=== PATIENT | female | born 1950 | race Caucasian/White ===

== ENCOUNTER 2016-07-04 11:22 | Day surgery (SDC) | payer OTHER, MEDICARE ==
[2016-07-01 14:03] VITALS: BMI 18.5
[2016-07-04] MEDS ORDERED: PROPOFOL 20 ML ONE (12:27)
[2016-07-04 13:06] VITALS: TEMP 98.2
[2016-07-04 13:54] VITALS: BP 131/80; PULSE 94
== END 2016-07-04 13:54 | disposition home or self-care (01) ==
LOC: JASU-ENDO 11:22
PROVIDERS: ATTEND Internal Medicine Gastroenterology
PROC: 0DJD8ZZ Inspection of Lower Intestinal Tract, Via Natural or Artificial Opening Endoscopic (ICD-10-PCS; principal; 2016-07-04 12:30)
DX: R10.32 Left lower quadrant pain (principal); K64.8 Other hemorrhoids

== ENCOUNTER 2016-07-25 13:09 | Inpatient (IN) | payer OTHER, MEDICARE ==
[2016-07-25 13:27] VITALS: BMI 19.2
[2016-07-25] MEDS ORDERED: SODIUM CHLORIDE 1,000 ML IV STA (13:51)
[2016-07-25] MEDS ORDERED: KETOROLAC TROMETHAMINE 30 MG/1 ML VIAL IVPUSH ONE ×3 (13:51→20:03)
--- NOTE | 2016-07-25 13:58 | PDOC ---
History of Present Illness - General History Source: Patient Exam Limitations: No Limitations - History of Present Illness Initial Comments: 07/25/16 14:09 Patient is a 66 year old with pmhx of anxiety, hemorrhoids, diverticulosis, cardiomegaly, splenomegaly, hepatomegaly, Kidney cysts, COPD, myeloproliferative disorder, IBS, who presents to the emergency department with LLQ pain since 05/2016. Patient was seen by Dr. Arguelles and had a CT in . Patient had a colonoscopy on Saturday 07/22 and was found to have diverticulosis. Patient reports increased abdominal pain at the LLQ since her colonoscopy. She also reports constipation. Her last bowel movement was on Monday. She denies fever, chills, nausea, vomiting, or diarrhea. <Renuka Martinez - Last Filed: 07/25/16 15:46> <Tyrell Wooten - Last Filed: 07/25/16 16:03> - General Chief Complaint: Pain, Acute Stated Complaint: ABDOMINAL PAIN Time Seen by Provider: 07/25/16 13:39 Past History <Renuka Martinez - Last Filed: 07/25/16 15:46> - Past Medical History Anemia: No Asthma: No Cancer: Yes (BENIGN ADRENAL MASS) Cardiac Disorders: No CVA: No COPD: Yes CHF: No Dementia: No Diabetes: No GI Disorders: Yes (ibs,diverticulosis) Disorders: Yes (kidney cysts) HTN: No Hypercholesterolemia: No Kidney Stones: Yes Liver Disease: No Psychiatric Problems: Yes (ANXIETY) Suicide Attempt (Hx): No Seizures: No Thyroid Disease: No - Surgical History Abdominal Surgery: Yes Appendectomy: No Cardiac Surgery: No Cholecystectomy: No Lung Surgery: No Neurologic Surgery: No Orthopedic Surgery: No - Immunization History Immunization Up to Date: Yes - Psycho/Social/Smoking Cessation Hx Anxiety: Yes Suicidal Ideation: No Smoking Status: Yes Smoking History: Former smoker Have you smoked in the past 12 months: No Number of Cigarettes Smoked Daily: 1 If you are a former smoker, when did you quit?: 2005 Information on smoking cessation initiated: No 'Breaking Loose' booklet given: 02/20/13 Hx Alcohol Use: No Drug/Substance Use Hx: No Substance Use Type: None Hx Substance Use Treatment: No <Tyrell Wooten - Last Filed: 07/25/16 16:03> - Past Medical History Allergies/Adverse Reactions: Allergies Allergy/AdvReac Type Severity Reaction Status Date / Time Sulfa (Sulfonamide Allergy Verified 07/25/16 13:20 Antibiotics) Home Medications: Ambulatory Orders Albuterol Sulfate [Proair Hfa -] 1 - 2 inh PO PRN PRN 01/28/14 Trazodone HCl [Desyrel -] 100 mg PO HS 01/28/14 Aspirin [ASA -] 81 mg PO DAILY 10/30/15 Hydroxyurea [Hydrea] 500 mg PO ASDIR #30 11/03/15 Budesonide/Formeterol Fumarate [SYMBICORT 160/4.5mcg -] 1 inh PO DAILY 07/01/16 Tiotropium [place] [Spiriva] 1 inh PO DAILY 07/01/16 Alprazolam [Xanax] 0.25 mg PO Q8H PRN 07/21/16 Anagrelide HCl [Agrylin] 1 mg PO TID 07/21/16 Dicyclomine HCl [Bentyl -] 10 mg PO Q6H PRN 07/25/16 Polyethylene Glycol 3350 [Miralax (For Daily Use) -] 17 gm PO HS 07/25/16 Abd/GI Specific PMHX - Complaint Specific PMHX Diverticulitis: Yes <Tyrell Wooten - Last Filed: 07/25/16 16:03> Review of Systems - Review of Systems Able to Perform ROS?: Yes Comments:: 07/25/16 14:09 General: Absent: fever, chills GI: +LLQ pain, +constipation Absent: nausea, vomiting, diarrhea <Renuka Martinez - Last Filed: 07/25/16 15:46> *Physical Exam - Vital Signs Last Vital Signs Temp Pulse Resp BP Pulse Ox 99.1 F 102 H 22 152/88 94 L 07/25/16 13:20 07/25/16 13:20 07/25/16 13:20 07/25/16 13:20 07/25/16 13:20 <Renuka Martinez - Last Filed: 07/25/16 15:46> - Vital Signs Last Vital Signs Temp Pulse Resp BP Pulse Ox 99.1 F 102 H 22 152/88 94 L 07/25/16 13:20 07/25/16 13:20 07/25/16 13:20 07/25/16 13:20 07/25/16 13:20 - Physical Exam General Appearance: Yes: Nourished, Appropriately Dressed. No: Apparent Distress Respiratory/Chest: positive: Lungs Clear, Normal Breath Sounds. negative: Chest Tender, Respiratory Distress Cardiovascular: positive: Regular Rhythm, Regular Rate Gastrointestinal/Abdominal: positive: Normal Bowel Sounds, Tender (LLQ BUT NO G/ R) Musculoskeletal: negative: CVA Tenderness Integumentary: positive: Normal Color. negative: Rash Neurologic: positive: Fully Oriented, Alert, Normal Mood/Affect, Normal Response , Motor Strength 5/5 <Tyrell Wooten - Last Filed: 07/25/16 16:03> ED Treatment Course - LABORATORY CBC & Chemistry Diagram: 07/25/16 14:05 07/25/16 14:05 <Renuka Martinez - Last Filed: 07/25/16 15:46> - LABORATORY CBC & Chemistry Diagram: 07/25/16 14:05 07/25/16 14:05 - RADIOLOGY Radiology Studies Ordered: Category Date Time Status ABDOMEN [id number] [RAD] Stat Radiology 07/25/16 13:51 Ordered <Tyrell Wooten - Last Filed: 07/25/16 16:03> Progress Note - Progress Note Progress Note: CHRONIC LLQ PAIN SINCE APRIL 2016 CT SHOWED DIVERTICULOSIS BUT NOT ITIS. WORSENING PAIN CONTIPATION ON DIFDX NSAID'S <Tyrell Wooten - Last Filed: 07/25/16 16:03> Medical Decision Making - Medical Decision Making 07/25/16 15:[address] Goetz. A call was placed to Dr. Ortiz. 07/25/16 15:[address] Ortiz. <Renuka Martinez - Last Filed: 07/25/16 15:46> *DC/Admit/Observation/Transfer - Attestations Scribe Attestion: 07/25/16 14:10 Documentation prepared by TANI Harper, acting as medical receptionist medical assistant for Tyrell Wooten MD/. <Renuka Martinez - Last Filed: 07/25/16 15:46> - Discharge Dispostion Admit: Yes <Tyrell Wooten - Last Filed: 07/25/16 16:03> Diagnosis at time of Disposition: Abdominal pain Qualifiers: Abdominal location: lower abdomen, unspecified Qualified Code(s): R10.30 - Lower abdominal pain, unspecified - Discharge Dispostion Condition at time of disposition: Stable - Referrals Referrals: Piero Ortiz MD [Primary Care Provider] -
[2016-07-25] MEDS ORDERED: KETOROLAC TROMETHAMINE 30 MG/1 ML VIAL ONE (13:59)
[2016-07-25 14:38] LABS: BASOPHIL 0.8 % (0-2.0); EOSINOPHIL 2.8 % (0-4.5); MCH 30.3 pg (25.7-33.7); MCHC 31.9 g/dl (32.0-36.0); MEAN PLT VOLUME 9.6 fl (7.5-11.1); NEUTROPHILS 84.9 % (42.8-82.8); PLATELET COUNT 229 K/MM3 (134-434); WHITE BLOOD COUNT 16.4 K/mm3 (4.0-10.0)
[2016-07-25 15:04] LABS: CALCIUM 8.7 mg/dL (8.5-10.1); CREATININE 1.6 mg/dL (0.55-1.02)
[2016-07-25] MEDS ORDERED: ALBUTEROL SO4 6.7 GM HFA INHALER IH PRN ×2 (17:07→17:26)
[2016-07-25] MEDS ORDERED: DICYCLOMINE HCL 10 MG CAPSULE PO PRN (17:07)
[2016-07-25] MEDS ORDERED: ONDANSETRON 4 MG/2 ML VIAL IVPB PRN (17:09)
[2016-07-25] MEDS ORDERED: morphine CARPU-JECT 2 MG/1 ML DISP.SYRIN IVPUSH PRN (17:09)
[2016-07-25] MEDS ORDERED: ACETAMINOPHEN 325 MG TABLET (FP) PO PRN (17:09)
--- NOTE | 2016-07-25 17:13 | HP ---
CHIEF COMPLAINT: Abdominal pain PCP: Dr. Ortiz HISTORY OF PRESENT ILLNESS: This is a 66 year old female with a history of MDS/ essential thrombocythemia on Hydrea and Anegrlide, CKD, COPD, anxiety, diverticulosis with adhesions, and chronic abdominal pain. She has been having abdominal pain intermittently since May. She is complaining of constipation (last BM Monday) but denies nausea/vomiting, fevers/chills, rectal bleeding, or any other symptoms. On July 22, she had a colonoscopy with Dr. Goetz, but he was unable to complete the exam and recommends a repeat CT and likely surgery for suspected sigmoid stricture. 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 Smoking: Former smoker, quit 6 yrs ago Alcohol: None Family History: Mother with CHF, Allergies Sulfa (Sulfonamide Antibiotics) Allergy (Verified 07/25/16 13:20) HOME MEDICATIONS: Home Medications Medication Instructions Recorded Albuterol Sulfate [Proair Hfa -] 1 - 2 inh PO PRN PRN 01/28/14 Trazodone HCl [Desyrel -] 100 mg PO HS 01/28/14 Aspirin [ASA -] 81 mg PO DAILY 10/30/15 Hydroxyurea [Hydrea] 500 mg PO ASDIR #30 11/03/15 Budesonide/Formeterol Fumarate 1 inh PO DAILY 07/01/16 [SYMBICORT 160/4.5mcg -] Tiotropium [place] [Spiriva] 1 inh PO DAILY 07/01/16 Alprazolam [Xanax] 0.25 mg PO Q8H PRN 07/21/16 Anagrelide HCl [Agrylin] 1 mg PO TID 07/21/16 Dicyclomine HCl [Bentyl -] 10 mg PO Q6H PRN 07/25/16 Polyethylene Glycol 3350 [Miralax 17 gm PO HS 07/25/16 (For Daily Use) -] REVIEW OF SYSTEMS CONSTITUTIONAL: Absent: fever, chills, diaphoresis, generalized weakness, malaise, loss of appetite, weight change HEENT: Absent: rhinorrhea, nasal congestion, throat pain, throat swelling, difficulty swallowing, mouth swelling, ear pain, eye pain, visual changes CARDIOVASCULAR: Absent: chest pain, syncope, palpitations, irregular heart rate, lightheadedness , peripheral edema RESPIRATORY: Absent: cough, shortness of breath, dyspnea with exertion, orthopnea, wheezing, stridor, hemoptysis GASTROINTESTINAL: See HPI GENITOURINARY: Absent: dysuria, frequency, urgency, hesitancy, hematuria, flank pain, genital pain MUSCULOSKELETAL: Absent: myalgia, arthralgia, joint swelling, back pain, neck pain SKIN: Absent: rash, itching, pallor HEMATOLOGIC/IMMUNOLOGIC: Absent: easy bleeding, easy bruising, lymphadenopathy, frequent infections ENDOCRINE: Absent: unexplained weight gain, unexplained weight loss, heat intolerance, cold intolerance NEUROLOGIC: Absent: headache, focal weakness or paresthesias, dizziness, unsteady gait, seizure, mental status changes, bladder or bowel incontinence PSYCHIATRIC: Anxiety Absent: suicidal or homicidal ideation, hallucinations. PHYSICAL EXAMINATION Vital Signs - 24 hr 07/25/16 16:23 Pulse Rate [ 81 Apical] Respiratory 19 Rate Blood Pressure 159/90 [Left Arm] O2 Sat by Pulse 96 Oximetry (%) GENERAL: Awake, alert, and fully oriented, in no acute distress. EYES: Pupils equal, round and reactive to light, extraocular movements intact, sclera anicteric, conjunctiva clear. No lid lag. EARS, NOSE, THROAT: Ears normal, nares patent, oropharynx clear without exudates. Moist mucous membranes. NECK: Normal range of motion, supple without lymphadenopathy, JVD, or masses. LUNGS: Breath sounds equal, clear to auscultation bilaterally. No wheezes, and no crackles. No accessory muscle use. HEART: Regular rate and rhythm, normal S1 and S2 without murmur, rub or gallop. ABDOMEN: Soft, tender to deep palpation in LLQ, not distended, normoactive bowel sounds, no guarding, no rebound, no masses. No hepatomegaly or splenomegaly. MUSCULOSKELETAL: Normal range of motion at all joints. No bony deformities or tenderness. No CVA tenderness. UPPER EXTREMITIES: 2+ pulses, warm, well-perfused. No cyanosis. No clubbing. Cap refill <2 seconds. No peripheral edema. LOWER EXTREMITIES: 2+ pulses, warm, well-perfused. No calf tenderness. No peripheral edema. NEUROLOGICAL: Cranial nerves II-XII intact. Normal speech. Normal gait. PSYCHIATRIC: Irritable. SKIN: Warm, dry, normal turgor, no rashes or lesions noted. ASSESSMENT/PLAN: 66 year old female with intractable abdominal pain. Problem List - Problem (1) Abdominal pain Assessment/Plan: -Received Toradol in ED and is still complaining of pain; reluctant to take opiates -Ofirmev 1g IVPB now, Tylenol 650mg po q6h prn, morphine 2mg IVPB q6h if needed -Discussed with Dr. Goetz and requests CTAP with rectal contrast to rule out sigmoid stricture as well as surgical consultation -There are currently no rectal tubes in the hospital to administer rectal contrast -Patient is insisting on eating; will give regular diet today and place on clear liquids tomorrow Code(s): R10.9 - UNSPECIFIED ABDOMINAL PAIN Qualifiers: Abdominal location: lower abdomen, unspecified Qualified Code(s): R10.30 - Lower abdominal pain, unspecified (2) Anxiety Assessment/Plan: -Continue alprazolam, trazadone Code(s): F41.9 - ANXIETY DISORDER, UNSPECIFIED (3) COPD (chronic obstructive pulmonary disease) Assessment/Plan: -Continue Symbicort/Spiriva Code(s): J44.9 - CHRONIC OBSTRUCTIVE PULMONARY DISEASE, UNSPECIFIED Qualifiers : COPD type: COPD with acute exacerbation Qualified Code(s): J44.1 - Chronic obstructive pulmonary disease with (acute) exacerbation (4) Essential thrombocytosis Assessment/Plan: -Receives hydroxyurea -W- (took today) -Hold antiplatelets in anticipation of surgery Code(s): D47.3 - ESSENTIAL (HEMORRHAGIC) THROMBOCYTHEMIA (5) DVT prophylaxis Assessment/Plan: -Heparin sq 5000 tid -Early ambulation Code(s): [id number] - Visit type - Emergency Visit Emergency Visit: Yes ED Registration Date: 07/25/16 Care time: The patient presented to the Emergency Department on the above date and was hospitalized for further evaluation of their emergent condition. - New Patient This patient is new to me today: Yes Date on this admission: 07/25/16 - Critical Care Critical Care patient: No
[2016-07-25] MEDS ORDERED: HYDROXYUREA 500 MG CAPSULE PO SCH (17:15)
[2016-07-25] MEDS ORDERED: SODIUM CHLORIDE 1,000 ML IV SCH (17:15)
[2016-07-25] MEDS ORDERED: morphine CARPU-JECT 2 MG/1 ML DISP.SYRIN IVPUSH ONE (17:26)
[2016-07-25] MEDS ORDERED: ACETAMINOPHEN 1000 MG/100 ML VIAL (NON FORMULARY) IVPB ONE (17:37)
[2016-07-25] MEDS ORDERED: ACETAMINOPHEN INJECTION 100 ML IVPB ONE (17:46)
[2016-07-25] MEDS ORDERED: ALPRAZolam 0.25 MG TABLET ONE (18:27)
[2016-07-25] MEDS: ALPRAZolam 0.25 MG TABLET PO PRN (18:28)
[2016-07-25] MEDS ORDERED: morphine CARPU-JECT 2 MG/1 ML DISP.SYRIN ONE (19:43)
[2016-07-25] MEDS ORDERED: KETOROLAC TROMETHAMINE 15 MG/ML VIAL ONE (20:09)
[2016-07-25 20:46] LABS: SGOT/AST 14 U/L (15-37); SGPT/ALT 17 U/L (12-78)
[2016-07-25 20:48] LABS: ALK PHOS 86 U/L (45-117); BILIRUBIN,TOTAL 0.3 mg/dL (0.2-1.0)
[2016-07-25 20:52] LABS: BILIRUBIN,DIRECT < 0.1 mg/dL (0.0-0.2)
[2016-07-25] MEDS: HEPARIN NA (PORCINE) 5,000 UNITS/ML 1ML VIAL SQ SCH (23:16)
[2016-07-25] MEDS: POLYETHYLENE GLYCOL 3350 119 GM BTL PO SCH (23:16)
[2016-07-25] MEDS: traZODone HCL 50 MG TABLET (FP) PO SCH (23:16)
[2016-07-25] MEDS: BUDESONIDE/FORMETEROL FUMARATE 160/4.5 mcg INHALER IH SCH (23:17)
[2016-07-25] MEDS: ACLIDINIUM BROMIDE 400 MCG/INH AERO.POWD IH SCH (23:17)
[2016-07-26] MEDS: ALPRAZolam 0.25 MG TABLET PO PRN ×2 (06:01→18:43)
[2016-07-26] MEDS: HEPARIN NA (PORCINE) 5,000 UNITS/ML 1ML VIAL SQ SCH (06:01)
[2016-07-26] MEDS ORDERED: KETOROLAC TROMETHAMINE 30 MG/1 ML VIAL IVPUSH ONE (06:09)
[2016-07-26] MEDS ORDERED: KETOROLAC TROMETHAMINE 30 MG/1 ML VIAL IVPB ONE (06:26)
[2016-07-26 07:49] LABS: BASOPHIL 0.8 % (0-2.0); EOSINOPHIL 3.1 % (0-4.5); MCH 30.4 pg (25.7-33.7); MCHC 32.7 g/dl (32.0-36.0); MEAN PLT VOLUME 9.4 fl (7.5-11.1); NEUTROPHILS 83.8 % (42.8-82.8); PLATELET COUNT 180 K/MM3 (134-434); RDW 18.9 % (11.6-15.6); WHITE BLOOD COUNT 9.8 K/mm3 (4.0-10.0)
[2016-07-26 08:16] LABS: INR 1.11 (0.82-1.09); PROTHROMBIN TIME (PATIENT) 12.2 SEC (9.98-11.88)
[2016-07-26 09:19] LABS: ALBUMIN 3.5 g/dl (3.4-5.0); BILIRUBIN,TOTAL 0.3 mg/dL (0.2-1.0); CREATININE 1.6 mg/dL (0.55-1.02); MAGNESIUM 2.1 mg/dL (1.8-2.4)
[2016-07-26] MEDS ORDERED: PT OWN MED DRAWER 7, Y5N ONE ×2 (09:38→10:33)
[2016-07-26] MEDS ORDERED: BUDESONIDE/FORMETEROL FUMARATE 160/4.5 mcg INHALER IH SCH (10:00)
--- NOTE | 2016-07-26 10:52 | PN ---
Physical Exam: SUBJECTIVE: Patient seen and examined field court researcher: Dr. Powers PCP/warehouse team member: Dr. Mahoney Video Software Engineer:Dr. Medrano Psych: Dr. Yuen GI: Dr. Lim abdominal pain is better than when she arrived. does not want morphine due to constipation which will make her abdominal pain worse, toradol and bentyl cover the pain. Interested in speaking with Dr. Joyner regarding surgical intervention for possible sigmoid stricture. abdominal pain has been getting worse since april. has been passing gas, last BM was Monday morning. OBJECTIVE: Vital Signs Period Temp Pulse Resp BP Sys/Palacios Pulse Ox Last 24 Hr 97.3 F-98.3 F 80-87 18-20 153-170/77-97 95-98 GENERAL: The patient is awake, alert, and fully oriented, in no acute distress. HEAD: Normal with no signs of trauma. EYES: PERRL, extraocular movements intact, sclera anicteric, conjunctiva clear. No ptosis. ENT: oropharynx clear without exudates, moist mucous membranes. LUNGS: scattered expiratory wheezing, no accessory muscle use. comfortable on RA. HEART: Regular rate and rhythm, S1, S2 without murmur, rub or gallop. ABDOMEN: Soft, ttp in LLQ, distended, normoactive bowel sounds, no guarding, no rebound EXTREMITIES: 2+ pulses, warm, well-perfused, no edema. PSYCH: Normal mood, normal affect. SKIN: Warm, dry, normal turgor, no rashes or lesions noted Laboratory Results - last 24 hr 07/26/16 07/26/16 07/26/16 06:00 06:00 06:00 WBC 9.8 D RBC 3.02 L Hgb 9.2 L Hct 28.1 L MCV 93.0 MCHC 32.7 RDW 18.9 H Plt Count 180 D MPV 9.4 Neutrophils % 83.8 H Lymphocytes % 10.3 Monocytes % 2.0 L Eosinophils % 3.1 Basophils % 0.8 INR 1.11 Sodium 140 Potassium 4.9 Chloride 108 H Carbon Dioxide 26 Anion Gap 6 L BUN 26 H Creatinine 1.6 H Creat Clearance w eGFR 32.25 Random Glucose 75 Calcium 8.0 L Magnesium 2.1 Total Bilirubin 0.3 AST 10 L D ALT 16 Alkaline Phosphatase 78 Total Protein 6.0 L Albumin 3.5 Blood Type Antibody Screen 07/26/16 06:00 WBC RBC Hgb Hct MCV MCHC RDW Plt Count MPV Neutrophils % Lymphocytes % Monocytes % Eosinophils % Basophils % INR Sodium Potassium Chloride Carbon Dioxide Anion Gap BUN Creatinine Creat Clearance w eGFR Random Glucose Calcium Magnesium Total Bilirubin AST ALT Alkaline Phosphatase Total Protein Albumin Blood Type A POSITIVE Antibody Screen Negative Active Medications Generic Name Dose Route Start Last Admin Trade Name Freq PRN Reason Stop Dose Admin Acetaminophen 650 mg 07/25/16 17:09 Tylenol - PO Q4H PRN FEVER OR PAIN Aclidinium [place] 1 puff 07/25/16 22:00 07/25/16 23:17 Tudorza - IH 1 puff BID RANDI Administration Albuterol Sulfate 2 puff 07/25/16 17:07 Ventolin Hfa Inhaler - IH Q4H PRN SHORTNESS OF BREATH Albuterol Sulfate 1 puff 07/25/16 17:26 Ventolin Hfa Inhaler - IH Q4H PRN SHORTNESS OF BREATH Alprazolam 0.25 mg 07/25/16 17:07 07/26/16 06:01 Xanax - PO 0.25 mg Q8H PRN Administration ANXIETY Budesonide/Formoterol Fumarate 2 puff 07/25/16 22:00 07/25/16 23:17 Symbicort 160/4.5mcg - IH 2 puff BID RANDI Administration Dicyclomine HCl 10 mg 07/25/16 17:07 Bentyl - PO Q6H PRN PAIN Heparin Sodium (Porcine) 5,000 unit 07/25/16 22:00 07/26/16 06:01 Heparin - SQ Not Given TID RANDI Hydroxyurea 500 mg 07/27/16 10:00 Hydrea - PO MOWEFR RANDI Morphine Sulfate 2 mg 07/25/16 17:09 Morphine Injection - IVPUSH Q4H PRN PAIN Ondansetron HCl 4 mg 07/25/16 17:09 Zofran Injection IVPB Q6H PRN NAUSEA Polyethylene Glycol 17 gm 07/25/16 22:00 07/25/16 23:16 Miralax (For Daily Use) - PO 17 grams HS RANDI Administration Trazodone HCl 100 mg 07/25/16 22:00 07/25/16 23:16 Desyrel - PO 100 mg HS RANDI Administration ASSESSMENT/PLAN: 66 yr old woman with MDS, essential thrombocytopenia, COPD, IBS, renal cysts/ nonobstructing nephrolithiasis, adrenal mass, anxiety, presents with abdominal pain. #Abdominal pain - LLQ - hx of diverticulosis, underwent flex sig last monday was told she had polyps but was unable to receive further evaluation due to possible sigmoid stricture - CT with po and rectal contrast to r/o sigmoid stricture as Dr. Goetz - bentyl 10mg q6hr po and toradol IVPB q6 15mg for pain, patient is reluctant to take morphine - Dr. Miller; keep pt NPO as she may have SBO - abd ct 06/28/2016 - many diverticuli in sigmoid colon #MDS - agreylin - hydroxurea MWF - wbc count 9.8 today, as per patient usual range is 16-20 - repeat labs in the AM #COPD - symbicort/turdoza/ventolin #Anxiety - trazadone and xanax #diet- keep NPO until CT scan #DVT- pt decline heparin, SCD's for now and encourage ambulation Visit type - Emergency Visit Emergency Visit: Yes ED Registration Date: 07/25/16 Care time: The patient presented to the Emergency Department on the above date and was hospitalized for further evaluation of their emergent condition. - New Patient This patient is new to me today: Yes Date on this admission: 07/26/16 - Critical Care Critical Care patient: No - Discharge Referral Referred to [facility] Med [facility] No
--- NOTE | 2016-07-26 11:07 | PN ---
Progress Note (short form) - Note Progress Note: surgery full eval to follow. agree with ct with rectal contrast. please do not place on regular diet since large bowel obstruction is a possibility.
--- NOTE | 2016-07-26 14:06 | PN ---
Teaching Attending Note Name of Resident: Irving Limon ATTENDING PHYSICIAN STATEMENT I saw and evaluated the patient. I reviewed the resident's note and discussed the case with the resident. I agree with the resident's findings and plan as documented. SUBJECTIVE: Abdominal pain is less severe. OBJECTIVE: Vital Signs Period Temp Pulse Resp BP Sys/Palacios Pulse Ox Last 24 Hr 97.3 F-98.3 F 80-87 18-20 153-170/77-99 95-98 HEART: S1 S2, RRR LUNGS: Few wheezes ABDOMEN: Soft, non-distended, (+) LLQ tenderness, normal BS EXTREMITIES: No edema ASSESSMENT AND PLAN: This is a 66-year-old woman with a history of MDS/essential thrombocytosis, COPD , IBS, renal cysts, kidney stones, adrenal mass, anxiety, who presented with abdominal pain. 1. Abdominal pain, IBS - CT abd/pelvis with oral and rectal contrast today to evaluate for sigmoid stricture - Continue Bentyl as needed - Surgery consult appreciated 2. Anxiety - Continue Trazodone, Xanax as needed 3. COPD - Stable -Continue Symbicort, Tudorza, Albuterol as needed 4. Essential thrombocytosis - Continue Hydrea
[2016-07-26] MEDS: BUDESONIDE/FORMETEROL FUMARATE 160/4.5 mcg INHALER IH SCH ×2 (15:00→21:44)
[2016-07-26] MEDS: ACLIDINIUM BROMIDE 400 MCG/INH AERO.POWD IH SCH ×2 (15:01→21:44)
--- NOTE | 2016-07-26 15:27 | CONS ---
EMERGENCY ROOM CONSULTATION DATE OF CONSULTATION: DATE OF DICTATION: 07/26/2016 REQUESTING PHYSICIAN: Emergency room physician. BRIEF HISTORY: This is a 66-year-old female who has multiple medical problems including COPD, anxiety, cardiomegaly, splenomegaly, hepatomegaly, myeloproliferative disorder, irritable bowel syndrome, diverticulosis, a benign adrenal mass, who has been complaining of increasing constipation and recently underwent an aborted colonoscopy that was unable to pass the sigmoid colon due to presumed diverticular stricture. She had worsening of her constipation and presented to the [facility] Emergency Room where she was admitted to the hospital, and a surgical consultation was requested. She admits to some flatus but states she has not had a bowel movement in several days. She is also very hungry and denies abdominal pain. PAST MEDICAL HISTORY: As in HPI. PAST SURGICAL HISTORY: Includes 2 sections done through a vertical incision and a laparoscopic adrenalectomy for a benign adrenal mass. SOCIAL HISTORY: Significant for quitting tobacco and negative for alcohol. ALLERGIES: She has allergies to SULFA. FAMILY HISTORY: Negative for malignancy in the immediate family. HOME MEDICATIONS: Have been reviewed. They include: Albuterol, trazodone, aspirin, hydroxyurea, Symbicort, Spiriva, Xanax, Agrylin, Bentyl, and MiraLAX. REVIEW OF SYSTEMS: General: Admits to fatigue. Cardiac: Denies chest pain or palpitations. Respiratory: Admits to shortness of breath. Gastrointestinal: Denies recent weight loss. Admits to constipation. Denies blood in her stool. Genitourinary: Denies dysuria. Musculoskeletal: Denies joint pain, joint swelling. Psychiatric: Admits to anxiety. PHYSICAL EXAMINATION: General: This is a thin, 66-year-old female in no distress. Her body mass index is 19.8. Head: Normocephalic. Eyes: Her sclerae are anicteric. Neck: Supple. Chest: Clear. Abdomen: Soft. It is nondistended. There is a midline surgical scar below her umbilicus. There is a ventral hernia above this scar. She has no tenderness. She has no obvious masses appreciated, but she states she can feel her problem in the left lower abdomen. Extremities: Have clubbing. LABORATORY DATA: On review of her laboratory, her white blood cell count is normal at 9.8. It was 16.4 on admission. Her chemistries show an elevated BUN of 26, an elevated creatinine of 1.6, otherwise unremarkable. Her coagulation profile is normal. She had an x-ray of her abdomen done yesterday which shows no evidence of obstruction. ASSESSMENT: This is a 66-year-old female admitted for constipation with a recent colonoscopy unable to pass safety through the sigmoid colon. At this point, the patient appears comfortable. I agree with gastroenterology plan for a computerized axial tomography scan with rectal contrast to better evaluate this area of narrowing. Based on CAT scan findings, I will make further recommendations. These could include the possibility of surgical resection versus diversion versus attempt at balloon dilatation. At this point, would keep her off of a regular diet as she, in theory, could have an obstruction, and if surgery ended up happening this admission, she may require an attempt at bowel preparation which would be complicated by regular diet. DO BING GONZALEZ/[id number]
[2016-07-26] MEDS ORDERED: ANAGRELIDE HCL 0.5 MG CAPSULE PO SCH (16:00)
[2016-07-26] MEDS: KETOROLAC TROMETHAMINE 15 MG/ML VIAL IVPB PRN (16:00)
--- NOTE | 2016-07-26 16:12 | PN ---
Progress Note (short form) - Note Progress Note: MEDICAL ATTENDING CHART REVIEWED HOSPITALIST NOTES GREATLY APPRECIATED HAVE SPOKEN WITH RADIOLOGIST REGARDING CONTRAST ENEMA:FULL RESULTS TO FOLLOW AM I WILL ASSUME CASE FROM THIS POINT WILL NOTIFY HOSPITALIST SERVICE AND ADMITTING HAVE DISCUSSED CASE WITH HEMATOLOGY REGARDING AGRYLIN/HYDREA (HAVE ADJUSTED PER DR HOOVER) Sandeep LYNN
--- NOTE | 2016-07-26 19:31 | CON.GI ---
Consult Consult Specialty:: GASTROENTEROLOGY Reason for Consultation:: ABDOMINAL PAIN - History of Present Illness Chief Complaint: ABDOMINAL PAIN History of Present Illness: 66 YEAR OLD FEMALE WITH SEVER DIVERTICULOSIS AND GRADE 3 INTERNAL HEMORRHOIDS WHO HAS BEEN AWAY FROM THE OFFICE FOR A WHILE. SHE RECENTLY C/O LLQ PAIN AND CONSTIPATION. A FLEXIBLE SIGMOIDOSCOPY COULD NOT BE COMPLETED DUE TO A POOR PREP. A COLONOSCOPY COULD NOT BE COMPLETED DUE TO SEVER DIVERTICULOSIS AND NARROWING OF THE SIGMOID COLON. SHE CALLED WITH CONTINUED ABDOMINAL PAIN AND SHE WAS ADMITTED. A CT SCAN WITH RECTAL CONTRAST REVEALED SEVERE DIVERTICULOSIS AND NARROWING OF THE SIGMOID COLON C/E STRICTURE OR HYPERTROPHIC FOLDS . I HAVE SEEN THE CT SCAN AND IT APPEARS TO BE A SMOOTH STRICTURE. SHE IS ON A CLEAR LIQUID DIET AND HER PAIN IS LESS. SHE HAS NO BLEEDING OR FEVER. - Past Medical History Cardio/Vascular: Yes: HTN. No: AFIB, Aneurysm, Aortic Insufficiency, Aortic Stenosis, CAD, CHF, Deep Vein Thrombosis, Hyperlipdemia, DE, Mitral Insufficiency, Mitral Stenosis, Murmur, Pulmonary Hypertension, Other Pulmonary: Yes: COPD. No: Asthma, Bronchitis, Cancer, O2 Dependent, Pneumonia, Previously Intubated, Pulmonary Embolus, Pulmonary Fibrosis, Sleep Apnea, Other Gastrointestinal: Yes: Constipation, Other (ADRENAL ADENOMA, SEVERE DIVERTICULOSIS AND DIVERTICULITIS) Hepatobiliary: Yes: Other (HAD WORKUP FOR PORTAL HTN WHICH WAS NEGATIVE ( INCLUDED PORTAL PRESSURE MEASUREMENTS)) Renal/: Yes: Renal Inusuff ...: No Psych: Yes: Anxiety. No: Addictions, Bipolar, Depression, Panic, Psychosis, Schizophrenia, Other - Past Surgical History Past Surgical History: Yes: Colonoscopy, Upper Endoscopy - Alcohol/Substance Use Hx Alcohol Use: No History of Substance Use: reports: None - Smoking History Smoking history: Former smoker Have you smoked in the past 12 months: No Aproximately how many cigarettes per day: 1 If you are a former smoker, when did you quit?: 2005 - Social History ADL: Independent History of Recent Travel: No Home Medications - Allergies Allergies/Adverse Reactions: Allergies Allergy/AdvReac Type Severity Reaction Status Date / Time Sulfa (Sulfonamide Allergy Verified 07/25/16 13:20 Antibiotics) - Home Medications Home Medications: Ambulatory Orders Albuterol Sulfate [Proair Hfa -] 1 - 2 inh PO PRN PRN 01/28/14 Trazodone HCl [Desyrel -] 100 mg PO HS 01/28/14 Aspirin [ASA -] 81 mg PO DAILY 10/30/15 Hydroxyurea [Hydrea] 500 mg PO ASDIR #30 11/03/15 Budesonide/Formeterol Fumarate [SYMBICORT 160/4.5mcg -] 1 inh PO DAILY 07/01/16 Tiotropium [place] [Spiriva] 1 inh PO DAILY 07/01/16 Alprazolam [Xanax] 0.25 mg PO Q8H PRN 07/21/16 Anagrelide HCl [Agrylin] 1 mg PO TID 07/21/16 Dicyclomine HCl [Bentyl -] 10 mg PO Q6H PRN 07/25/16 Polyethylene Glycol 3350 [Miralax (For Daily Use) -] 17 gm PO HS 07/25/16 Family Disease History - Family Disease History Family History: Unremarkable Review of Systems - Review of Systems Constitutional: reports: No Symptoms Eyes: reports: No Symptoms HENT: reports: No Symptoms Neck: reports: No Symptoms Cardiovascular: reports: No Symptoms Respiratory: reports: No Symptoms Gastrointestinal: reports: Abdominal Pain, Constipation, Other (HEMORRHOIDS) Musculoskeletal: reports: No Symptoms Integumentary: reports: No Symptoms Neurological: reports: No Symptoms Endocrine: reports: No Symptoms Physical Exam-GI Vital Signs: Vital Signs Temperature 98.1 F 07/26/16 14:27 Pulse Rate 79 07/26/16 14:27 Respiratory Rate 18 07/26/16 14:27 Blood Pressure 150/85 07/26/16 14:27 O2 Sat by Pulse Oximetry (%) 97 07/26/16 09:00 Constitutional: Yes: Calm, Thin Eyes: Yes: Conjunctiva Clear HENT: Yes: Normocephalic Neck: Yes: Supple Cardiovascular: Yes: Regular Rate and Rhythm Respiratory: Yes: Regular Gastrointestinal Inspection: Yes: WNL ...Auscultate: Yes: Normoactive Bowel Sounds ...Palpate: Yes: Soft ...Rectal Exam: Yes: Hemorrhoids/External, Hemorrhoids/Internal Extremities: Yes: WNL Neurological: Yes: WNL Labs: CBC, BMP 07/26/16 06:00 07/26/16 06:00 INR, PTT INR 1.11 (0.82-1.09) 07/26/16 06:00 Laboratory Tests 07/25/16 07/26/16 07/26/16 14:05 06:00 06:00 WBC 16.4 H 9.8 D RBC 3.33 L 3.02 L Hgb 10.1 L 9.2 L Hct 31.6 L 28.1 L MCV 95.0 93.0 MCHC 31.9 L 32.7 RDW 19.0 H 18.9 H Plt Count 229 D 180 D MPV 9.6 D 9.4 Neutrophils % 84.9 H 83.8 H Lymphocytes % 9.0 10.3 Monocytes % 2.5 L 2.0 L Eosinophils % 2.8 D 3.1 Basophils % 0.8 0.8 INR 1.11 Sodium Potassium Chloride Carbon Dioxide Anion Gap BUN Creatinine Creat Clearance w eGFR Random Glucose Calcium Magnesium Total Bilirubin AST ALT Alkaline Phosphatase Total Protein Albumin 07/26/16 06:00 WBC RBC Hgb Hct MCV MCHC RDW Plt Count MPV Neutrophils % Lymphocytes % Monocytes % Eosinophils % Basophils % INR Sodium 140 Potassium 4.9 Chloride 108 H Carbon Dioxide 26 Anion Gap 6 L BUN 26 H Creatinine 1.6 H Creat Clearance w eGFR 32.25 Random Glucose 75 Calcium 8.0 L Magnesium 2.1 Total Bilirubin 0.3 AST 10 L D ALT 16 Alkaline Phosphatase 78 Total Protein 6.0 L Albumin 3.5 Imaging - Results Cat Scan: Image Reviewed (SEVERE DIVERTICULOSIS, ADRENAL ADENOMA, STRICTURE AT SIGMOID COLON) Problem List - Problems (1) Stricture of sigmoid colon Assessment/Plan: PATIENT DOES NOT WISH DR DELGADO HER SURGEON. SHE WANTED DR BEAVER TO BE CONSULTED. I HAVE CALLED DR BEAVER BUT HE INFORMS ME HE IS NO LONGER SEEING PATIENTS AT [facility]. I HAVE WILL MAKE ARRANGEMENTS FOR HER TO SEE A COLORECTAL SURGEON AT [facility] ON TOMORROW. SHE WILL NEED TO BE DISCHARGED IN THE AM AND SEE THE SURGEON LATER IN THE EARLY AFTERNOON OR LATE MORNING. I WILL CALL DR LEAH HINOJOSA TO INFORM HIM. CHARLOTTE VALENZUELA MD Code(s): K56.69 - OTHER INTESTINAL OBSTRUCTION (2) Diverticulosis Code(s): K57.90 - DVRTCLOS OF INTEST, PART UNSP, W/O PERF OR ABSCESS W/O BLEED (3) Constipation Code(s): K59.00 - CONSTIPATION, UNSPECIFIED (4) Abdominal pain Code(s): R10.9 - UNSPECIFIED ABDOMINAL PAIN Qualifiers: Abdominal location: lower abdomen, unspecified Qualified Code(s): R10.30 - Lower abdominal pain, unspecified
[2016-07-26] MEDS: traZODone HCL 50 MG TABLET (FP) PO SCH (21:44)
[2016-07-26] MEDS: POLYETHYLENE GLYCOL 3350 119 GM BTL PO SCH (21:53)
[2016-07-27] MEDS: KETOROLAC TROMETHAMINE 15 MG/ML VIAL IVPB PRN ×3 (05:42→16:01)
[2016-07-27] MEDS: ALPRAZolam 0.25 MG TABLET PO PRN ×2 (06:03→13:12)
[2016-07-27 07:33] LABS: BASOPHIL 0.9 % (0-2.0); EOSINOPHIL 3.1 % (0-4.5); MCH 30.2 pg (25.7-33.7); MCHC 32.4 g/dl (32.0-36.0); MEAN CELL VOLUME 93.3 fl (80-96); MEAN PLT VOLUME 9.3 fl (7.5-11.1); NEUTROPHILS 86.2 % (42.8-82.8); PLATELET COUNT 186 K/MM3 (134-434); RDW 19.3 % (11.6-15.6); WHITE BLOOD COUNT 12.2 K/mm3 (4.0-10.0)
[2016-07-27 07:51] LABS: CALCIUM 8.5 mg/dL (8.5-10.1)
[2016-07-27 07:52] LABS: CREATININE 1.4 mg/dL (0.55-1.02)
--- NOTE | 2016-07-27 09:43 | PN ---
Progress Note (short form) - Note Progress Note: surgery ct reviewed. received a call from service last night that patient no longer wants me as her surgeon. Pt refusing to be seen by me this am. Arrangements being made by Dr. Goetz for surgical evaluation at [facility]. will be available
[2016-07-27] MEDS ORDERED: HYDROXYUREA 500 MG CAPSULE PO SCH (10:00)
--- NOTE | 2016-07-27 11:02 | PN ---
Progress Note (short form) - Note Progress Note: MEDICAL ATTENDING VSS ANICTERIC CHEST CLEAR S1S2 BS+ DISTENDED RLQ TENDERNESS NO REBOUND OR GUARDING NO EDEMA LABS/MEDS/NOTES/IMAGING/CONSULTATIONS REVIEWED IMP: SEVERE SIGMOID STRICTURE CAUSING PAIN/CONSTIPATION AND PREVENTION OF COLONOSCOPIC EVALUATIONS ESSENTIAL THROMBOCYTHEMIA/MDS LEFT ADRENALECTOMY (BENIGN) COPD (FORMER SMOKER) PLAN: AFTER IN DEPTH CONSIDERATION OF OPTIONS DISCUSSED WITH PATIENT,SHE HAS DECIDED TO HAVE SURGERY BY DR [facility]BER[facility] AT [facility]/DR VALENZUELA IS AWARE I HAVE REQUESTED HEME CLEARANCE VIA DR KIKO BENAVIDES GRP WILL BE NOTIFIED Sandeep LYNN MD
[2016-07-27] MEDS ORDERED: PT OWN MED DRAWER 7, Y5N ONE (11:16)
[2016-07-27] MEDS: BUDESONIDE/FORMETEROL FUMARATE 160/4.5 mcg INHALER IH SCH ×2 (11:18→22:40)
[2016-07-27] MEDS: ACLIDINIUM BROMIDE 400 MCG/INH AERO.POWD IH SCH ×2 (11:18→22:41)
--- NOTE | 2016-07-27 11:44 | PN ---
Progress Note (short form) - Note Progress Note: surgery asked to re-eval as pt agreeable to surgery at [facility]. Ct shows sticture at 15cm from anal verge with about 10cm length segment involved. This would not be amenable to balloon dilatation and since pt is symptomatic would move in the direction of surgery. Would recommend slow bowel prep over 2 days due to the stricture. will give golytely today and tomorrow with tentative plans for surgery Monday. This would give the best chance at avoiding a colostomy. Previous c-sec and nature of adhesions from chronic diverticular disease would make open surgery a preferred approach. cont clear liquids. for medical optimization.
[2016-07-27] MEDS: PEG3350/SOD SULF,BICARB,CL/KCL 4,000 ML SOLN.RECON PO SCH (14:05)
--- NOTE | 2016-07-27 19:11 | CONSULT ---
Consult - text type - Consultation Consultation Note: Patient is a 66 year old with pmhx of anxiety, hemorrhoids, diverticulosis, cardiomegaly, splenomegaly, hepatomegaly, Kidney cysts, COPD, myeloproliferative disorder, IBS, who presents to the emergency department with LLQ pain since 05/2016. Patient was seen by Dr. Arguelles and had a CT in . Patient had a colonoscopy on Saturday 07/22 and was found to have diverticulosis. Patient reports increased abdominal pain at the LLQ since her colonoscopy. She also reports constipation. Her last bowel movement was on Monday. She denies fever, chills, nausea, vomiting, or diarrhea. - Past Medical History Cancer: Yes (BENIGN ADRENAL MASS) COPD: Yes GI Disorders: Yes (ibs,diverticulosis) Disorders: Yes (kidney cysts) Kidney Stones: Yes Psychiatric Problems: Yes (ANXIETY) - Surgical History Abdominal Surgery: Yes - Immunization History Immunization Up to Date: Yes - Psycho/Social/Smoking Cessation Hx Anxiety: Yes former smoker - Past Medical History Allergies/Adverse Reactions: Allergies Allergy/AdvReac Type Severity Reaction Status Date / Time Sulfa (Sulfonamide Allergy Verified 07/25/16 13:20 Antibiotics) Home Medications: Ambulatory Orders Albuterol Sulfate [Proair Hfa -] 1 - 2 inh PO PRN PRN 01/28/14 Trazodone HCl [Desyrel -] 100 mg PO HS 01/28/14 Aspirin [ASA -] 81 mg PO DAILY 10/30/15 Hydroxyurea [Hydrea] 500 mg PO ASDIR #30 11/03/15 Budesonide/Formeterol Fumarate [SYMBICORT 160/4.5mcg -] 1 inh PO DAILY 07/01/16 Tiotropium [place] [Spiriva] 1 inh PO DAILY 07/01/16 Alprazolam [Xanax] 0.25 mg PO Q8H PRN 07/21/16 Anagrelide HCl [Agrylin] 1 mg PO TID 07/21/16 Dicyclomine HCl [Bentyl -] 10 mg PO Q6H PRN 07/25/16 Polyethylene Glycol 3350 [Miralax (For Daily Use) -] 17 gm PO HS 07/25/16 *Physical Exam - Vital Signs Last Vital Signs Temp Pulse Resp BP Pulse Ox 99.1 F 102 H 22 152/88 94 L 07/25/16 13:20 07/25/16 13:20 07/25/16 13:20 07/25/16 13:20 07/25/16 13:20 Cor: RSR, No murmurs, No gallops Lungs: Clear to P&A Abd: Soft, Normal bowel sounds, No organomegaly Ext:No significant edema Skin: No rashes, Integument intact Labs reviewed A/P Patient is a 66 year old with pmhx of anxiety, hemorrhoids, diverticulosis, cardiomegaly, splenomegaly, hepatomegaly, Kidney cysts, COPD, myeloproliferative disorder, IBS, who presents to the emergency department with LLQ pain since 05/2016. Noted to have stricture in the colon For surgery on 07/29 discussed with PAtient has underlying myeloproliferative disorder, making her at higher risk for both bleeding and thrombotic complications postoperatively she underdtstands this continue hydrea-- 500mg twice weekly platelets 180,000 range continue ASA 81mg daily DVT prophy will check flow/FISH/cytogenetics
--- NOTE | 2016-07-27 19:19 | PN ---
GI Progress Note Subjective: Gastroenterology Jasmine has decided to stay at [facility] for her surgery. She expressed this with her primary physician and myself. She would like Dr. Joyner to be her surgeon. Her pain is less. She had a small bowel movement today. - Objective Vital Signs: Vital Signs Temperature 98.4 F 07/27/16 17:50 Pulse Rate 83 07/27/16 17:50 Respiratory Rate 18 07/27/16 17:50 Blood Pressure 169/95 07/27/16 17:50 O2 Sat by Pulse Oximetry (%) 97 07/26/16 20:57 Constitutional: Thin Eyes: Yes: Conjunctiva Clear HENT: Yes: Normocephalic Cardiovascular: Yes: Regular Rate and Rhythm Respiratory: Yes: Regular Gastrointestinal Inspection: Yes: Distention ...Auscultate: Yes: Normoactive Bowel Sounds ...Palpate: Yes: Soft Extremities: Yes: WNL Labs: CBC, BMP 07/27/16 06:10 07/27/16 06:10 INR, PTT INR 1.11 (0.82-1.09) 07/26/16 06:00 - ....Imaging Cat Scan: Image Reviewed ( Suggestive of a sigmoid stricture and severe diverticulosis of the left colon) Problem List - Problems (1) Stricture of sigmoid colon Assessment/Plan: Surgery to evaluate the patient today and plan for operative procedure. Will follow the patient during the course of her operation and afterwards. Code(s): K56.69 - OTHER INTESTINAL OBSTRUCTION (2) Diverticulosis Code(s): K57.90 - DVRTCLOS OF INTEST, PART UNSP, W/O PERF OR ABSCESS W/O BLEED (3) Constipation Code(s): K59.00 - CONSTIPATION, UNSPECIFIED (4) Abdominal pain Code(s): R10.9 - UNSPECIFIED ABDOMINAL PAIN Qualifiers: Abdominal location: lower abdomen, unspecified Qualified Code(s): R10.30 - Lower abdominal pain, unspecified
[2016-07-27] MEDS: traZODone HCL 50 MG TABLET (FP) PO SCH (22:40)
[2016-07-27] MEDS: POLYETHYLENE GLYCOL 3350 119 GM BTL PO SCH (22:42)
[2016-07-28] MEDS: ALPRAZolam 0.25 MG TABLET PO PRN ×3 (01:57→20:49)
[2016-07-28 09:21] LABS: INR 1.12 (0.82-1.09); PROTHROMBIN TIME (PATIENT) 12.4 SEC (9.98-11.88)
[2016-07-28 09:24] LABS: ACTIVATED PTT 32.1 SECONDS (26.9-34.4)
[2016-07-28] MEDS: BUDESONIDE/FORMETEROL FUMARATE 160/4.5 mcg INHALER IH SCH ×2 (09:44→22:31)
[2016-07-28] MEDS: KETOROLAC TROMETHAMINE 15 MG/ML VIAL IVPB PRN (09:48)
[2016-07-28] MEDS: ACLIDINIUM BROMIDE 400 MCG/INH AERO.POWD IH SCH ×2 (09:59→22:31)
[2016-07-28] MEDS: PEG3350/SOD SULF,BICARB,CL/KCL 4,000 ML SOLN.RECON PO SCH ×2 (10:23→14:03)
--- NOTE | 2016-07-28 14:47 | PN ---
Progress Note (short form) - Note Progress Note: PAtient seen and examined Denies any complaints Last Vital Signs Temp Pulse Resp BP Pulse Ox 98.4 F 79 18 156/90 97 07/28/16 14:16 07/28/16 14:16 07/28/16 14:16 07/28/16 14:16 07/28/16 09:00 HEENT: TONEY, EOM Intact Oropharynx: No thrush, No mucositis Cor: RSR, No murmurs, No gallops Lungs: Clear to P&A Abd: Soft, Normal bowel sounds, No organomegaly Ext:No significant edema LAbs reviewed Current Medications Acetaminophen (Tylenol -) 650 mg PO Q4H PRN PRN Reason: FEVER OR PAIN Last Admin: 07/27/16 09:27 Dose: 650 mg Aclidinium [place] (Tudorza -) 1 puff IH BID [facility] Last Admin: 07/28/16 09:59 Dose: 1 puff Albuterol Sulfate (Ventolin Hfa Inhaler -) 2 puff IH Q4H PRN PRN Reason: SHORTNESS OF BREATH Albuterol Sulfate (Ventolin Hfa Inhaler -) 1 puff IH Q4H PRN PRN Reason: SHORTNESS OF BREATH Alprazolam (Xanax -) 0.25 mg PO Q8H PRN PRN Reason: ANXIETY Last Admin: 07/28/16 13:35 Dose: 0.25 mg Aspirin (Asa -) 81 mg PO DAILY [facility] Budesonide/Formoterol Fumarate (Symbicort 160/4.5mcg -) 2 puff IH BID [facility] Last Admin: 07/28/16 09:44 Dose: Not Given Dicyclomine HCl (Bentyl -) 10 mg PO Q6H PRN PRN Reason: PAIN Hydroxyurea (Hydrea -) 500 mg PO MoFr@10 [facility] Ertapenem 1 gm/ Sodium (Chloride) 50 mls @ 50 mls/hr IVPB ONCE ONE PRN Reason: Protocol Stop: 07/29/16 11:59 Ketorolac Tromethamine (Toradol Injection -) 15 mg IVPB Q6H PRN PRN Reason: PAIN Stop: 07/31/16 13:43 Last Admin: 07/28/16 09:48 Dose: 15 mg Morphine Sulfate (Morphine Injection -) 2 mg IVPUSH Q4H PRN PRN Reason: PAIN Ondansetron HCl (Zofran Injection) 4 mg IVPB Q6H PRN PRN Reason: NAUSEA Polyethylene Glycol (Miralax (For Daily Use) -) 17 gm PO HS [facility] Last Admin: 07/27/16 22:42 Dose: Not Given Trazodone HCl (Desyrel -) 100 mg PO [facility] Last Admin: 07/27/16 22:40 Dose: 100 mg A/P 66 y/o patient with myeloproliferative disorder, now going for surgery for presumed sigmoid stricture discussed with patient that she is at high risk for both thrombotic and bleeding complications given her underlying MPD but platelets are adequately controlled will continue ASA 81mg daily NEeds adequate hydration and post op. thromboprophylaxis with SCDs. will follow and consider LMWH prophylaxis as necessary
--- NOTE | 2016-07-28 14:58 | PN ---
Progress Note (short form) - Note Progress Note: MEDICAL ATTENDING VSS ANICTERIC CHEST CLEAR S1S2 BS+ DISTENDED RLQ TENDERNESS NO REBOUND OR GUARDING NO EDEMA LABS/MEDS/NOTES/IMAGING/CONSULTATIONS REVIEWED IMP: SEVERE SIGMOID STRICTURE CAUSING PAIN/CONSTIPATION AND PREVENTION OF COLONOSCOPIC EVALUATIONS ESSENTIAL THROMBOCYTHEMIA/MDS LEFT ADRENALECTOMY (BENIGN) COPD (FORMER SMOKER) PLAN: colon prep ongoing Dr. Gill f/u appreciated surg is planned for tomorrow R LEAH ROBERTS
[2016-07-28] MEDS: ASPIRIN 81 MG CHEWABLE TABLETS PO SCH (16:47)
--- NOTE | 2016-07-28 16:50 | PN ---
Progress Note (short form) - Note Progress Note: surgery pt seen and examined. no pain. tolerating second gallon of prep. clear stool. afebrile abd- soft, nt, nd Plan- for surgery tomorrow (scheduled 11am) will attempt resection and primary anastamosis. appreciate hematology, medical, and GI optimization. npo after mn. ivf started. invanz on chart to OR.
[2016-07-28] MEDS: DEXTROSE 5%-NORMAL SALINE 1,000 ML IV SCH (17:20)
[2016-07-28] MEDS: POLYETHYLENE GLYCOL 3350 119 GM BTL PO SCH (22:22)
[2016-07-28] MEDS: traZODone HCL 50 MG TABLET (FP) PO SCH (22:29)
[2016-07-29] MEDS: DEXTROSE 5%-NORMAL SALINE 1,000 ML IV SCH ×3 (06:38→20:00)
[2016-07-29 07:35] LABS: MCH 31.2 pg (25.7-33.7); MCHC 33.4 g/dl (32.0-36.0); MEAN CELL VOLUME 93.5 fl (80-96); MEAN PLT VOLUME 9.3 fl (7.5-11.1); NEUTROPHILS 84.5 % (42.8-82.8); PLATELET COUNT 270 K/MM3 (134-434); RDW 19.5 % (11.6-15.6); WHITE BLOOD COUNT 10.8 K/mm3 (4.0-10.0)
[2016-07-29 07:56] LABS: INR 1.16 (0.82-1.09); PROTHROMBIN TIME (PATIENT) 12.8 SEC (9.98-11.88)
[2016-07-29 08:03] LABS: ALBUMIN 3.3 g/dl (3.4-5.0); BILIRUBIN,TOTAL 0.3 mg/dL (0.2-1.0); CREATININE 1.3 mg/dL (0.55-1.02)
[2016-07-29 08:04] LABS: TOT PROT 5.7 g/dl (6.4-8.2)
[2016-07-29] MEDS: BUDESONIDE/FORMETEROL FUMARATE 160/4.5 mcg INHALER IH SCH (09:35)
[2016-07-29] MEDS: ASPIRIN 81 MG CHEWABLE TABLETS PO SCH (09:36)
[2016-07-29] MEDS: ACLIDINIUM BROMIDE 400 MCG/INH AERO.POWD IH SCH (09:57)
[2016-07-29] MEDS ORDERED: HYDROXYUREA 500 MG CAPSULE PO SCH (10:00)
[2016-07-29] MEDS: ALPRAZolam 0.25 MG TABLET PO PRN (10:00)
--- NOTE | 2016-07-29 10:51 | PN ---
Progress Note (short form) - Note Progress Note: Patient seen and examined Scheduled for surgery this A.M. Last Vital Signs Temp Pulse Resp BP Pulse Ox 98.4 F 92 H 18 183/88 97 07/29/16 08:15 07/29/16 08:15 07/29/16 08:15 07/29/16 08:15 07/28/16 21:00 HEENT: TONEY, EOM Intact Oropharynx: No thrush, No mucositis Cor: RSR, No murmurs, No gallops Lungs: diminished breath sounds bilaterally Abd: Soft, Normal bowel sounds, No organomegaly, distension Ext:No significant edema Skin: No rashes, Integument intact CBC, BMP 07/29/16 06:35 07/29/16 06:35 INR, PTT INR 1.16 (0.82-1.09) H 07/29/16 06:35 Impression: For surgery MPD- on ASA, Hydrea, currently off anagrelide Plan: Increased risk of both thrombotic and bleeding diathesis in patients with MPD. Would maintain ASA post op when feasible and begin Lovenox when cleared by surgery.
[2016-07-29] MEDS ORDERED: ERTAPENEM SODIUM 1 GM in SODIUM CHLORIDE 50 ML IVPB ONE (11:00)
[2016-07-29] MEDS ORDERED: PT OWN MED DRAWER 7, Y5N ONE (11:12)
[2016-07-29] MEDS ORDERED: MIDAZOLAM HCL 2 MG/2 ML SINGLE DOSE VIAL ONE ×2 (11:55→15:49)
[2016-07-29] MEDS ORDERED: ROCURONIUM BROMIDE 50 MG/5 ML VIAL ONE ×2 (11:55→13:27)
[2016-07-29] MEDS ORDERED: PROPOFOL 20 ML ONE ×2 (11:55)
[2016-07-29] MEDS ORDERED: GlUCAGON HUMAN RECOMBINANT 1 MG/VIAL ONE (12:14)
[2016-07-29] MEDS ORDERED: ERTAPENEM SODIUM 1 GM VIAL IVPB ONE (12:24)
[2016-07-29] MEDS ORDERED: LIDOCAINE HCL/PF 2% SDV 5ML VIAL ONE (13:04)
[2016-07-29] MEDS ORDERED: DEXAMETHASONE SOD PHOSPHATE 4 MG/1 ML VIAL ONE (13:04)
[2016-07-29] MEDS ORDERED: ONDANSETRON 4 MG/2 ML VIAL ONE (13:04)
[2016-07-29] MEDS ORDERED: GLYCOPYRROLATE 0.2 MG/1 ML VIAL ONE (14:08)
[2016-07-29] MEDS ORDERED: NEOSTIGMINE METHYLSULFATE 0.5 MG/ML - 10 ML MDV ONE (14:08)
--- NOTE | 2016-07-29 14:29 | OP ---
Operative Note - Note: Operative Date: 07/29/16 Pre-Operative Diagnosis: sigmoid stricture/partial lbo, diverticulosis Operation: open low anterior resection with rectosigmoid and left colon about 5 inches long with multiple diverticula, splenomegaly Findings: hypertrophic segment of sigmoid colon, path pending Post-Operative Diagnosis: Same as Pre-op Surgeon: Shiarz Joyner Ski Patroller: Bravo Miller Anesthesiologist/PHOTOCOPYING MACHINE OPERATOR: Yanci Prado MD Anesthesia: General Specimens Removed: rectosigmoid with left colon Estimated Blood Loss (mls): 100 Drains & Tubes with Location: none
[2016-07-29] MEDS ORDERED: morphine CARPU-JECT 4 MG/1 ML DISP.SYRIN IVPB PRN (14:32)
[2016-07-29] MEDS ORDERED: IBUPROFEN 800 MG/8 ML IJ IVPB PRN (14:36)
[2016-07-29] MEDS ORDERED: ALBUTEROL SO4 6.7 GM HFA INHALER IH PRN ×2 (14:59)
[2016-07-29] MEDS: ONDANSETRON 4 MG/2 ML VIAL IVPB PRN (15:00)
[2016-07-29] MEDS ORDERED: DICYCLOMINE HCL 10 MG CAPSULE PO PRN (15:15)
[2016-07-29] MEDS ORDERED: HYDROmorphone HCL CARPU-JECT 2 MG/1 ML DISP.SYRIN ONE (15:23)
[2016-07-29] MEDS: HYDROmorphone HCL CARPU-JECT 1 MG/1 ML DISP.SYRIN IVPUSH PRN ×4 (15:23→23:30)
[2016-07-29] MEDS ORDERED: MIDAZOLAM HCL 2 MG/2 ML SINGLE DOSE VIAL IVPUSH ONE (15:51)
[2016-07-29] MEDS ORDERED: ASPIRIN 81 MG CHEWABLE TABLETS PO ONE (18:39)
--- NOTE | 2016-07-29 19:56 | PN ---
GI Progress Note Subjective: GASTROENTEROLOGY OUT OF PACU ABOUT 1/2 HOUR SEEMS COMFORTABLE HAD OPEN LOW ANTERIOR RESECTION (RECTOSIGMOID AND PART OF LEFT COLON ) FOR SEVER HYPERTROPHIC DIVERTICULOSIS AND STRICTURE - Objective Vital Signs: Vital Signs Temperature 97.3 F L 07/29/16 19:10 Pulse Rate 68 07/29/16 19:10 Respiratory Rate 20 07/29/16 19:10 Blood Pressure 140/77 07/29/16 19:10 O2 Sat by Pulse Oximetry (%) 97 07/29/16 19:10 Constitutional: Calm, Other (SEDATED) Eyes: Yes: Conjunctiva Clear HENT: Yes: Normocephalic Cardiovascular: Yes: Regular Rate and Rhythm Respiratory: Yes: Regular Gastrointestinal Inspection: Yes: Distention ...Auscultate: Yes: Hypoactive Bowel Sounds ...Palpate: Yes: Soft, Other (LAP PAD CLEAN AND DRY) Extremities: Yes: WNL Labs: CBC, BMP 07/29/16 06:35 07/29/16 06:35 INR, PTT INR 1.16 (0.82-1.09) H 07/29/16 06:35 Laboratory Tests 07/29/16 07/29/16 07/29/16 06:35 06:35 06:35 WBC 10.8 H RBC 2.90 L Hgb 9.1 L Hct 27.1 L MCV 93.5 MCHC 33.4 RDW 19.5 H Plt Count 270 D MPV 9.3 Neutrophils % 84.5 H Lymphocytes % 8.9 Monocytes % 2.6 L Eosinophils % 3.0 Basophils % 1.0 INR 1.16 H Sodium 144 Potassium 4.2 Chloride 108 H Carbon Dioxide 30 Anion Gap 6 L BUN 13 D Creatinine 1.3 H Creat Clearance w eGFR 40.98 Random Glucose 87 Calcium 8.0 L Total Bilirubin 0.3 AST 14 L D ALT 16 Alkaline Phosphatase 78 Total Protein 5.7 L Albumin 3.3 L Problem List - Problems (1) Stricture of sigmoid colon Assessment/Plan: S/P LOW ANTERIOR RESECTION POST OP CARE PER SURGICAL TEAM Code(s): K56.69 - OTHER INTESTINAL OBSTRUCTION (2) Diverticulosis Code(s): K57.90 - DVRTCLOS OF INTEST, PART UNSP, W/O PERF OR ABSCESS W/O BLEED (3) Constipation Code(s): K59.00 - CONSTIPATION, UNSPECIFIED (4) Abdominal pain Code(s): R10.9 - UNSPECIFIED ABDOMINAL PAIN Qualifiers: Abdominal location: lower abdomen, unspecified Qualified Code(s): R10.30 - Lower abdominal pain, unspecified
[2016-07-29] MEDS: traZODone HCL 50 MG TABLET (FP) PO SCH (22:33)
[2016-07-30] MEDS: ACLIDINIUM BROMIDE 400 MCG/INH AERO.POWD IH SCH ×3 (00:15→21:03)
[2016-07-30] MEDS: BUDESONIDE/FORMETEROL FUMARATE 160/4.5 mcg INHALER IH SCH ×3 (00:16→21:02)
[2016-07-30] MEDS ORDERED: ASPIRIN COATED 81 MG TABLET.EC ONE (00:22)
[2016-07-30] MEDS ORDERED: ONDANSETRON 4 MG/2 ML VIAL ONE (00:48)
[2016-07-30] MEDS ORDERED: ASPIRIN 81 MG CHEWABLE TABLETS ONE (00:49)
[2016-07-30] MEDS: ONDANSETRON 4 MG/2 ML VIAL IVPB PRN (01:10)
[2016-07-30] MEDS: ALPRAZolam 0.25 MG TABLET PO PRN ×3 (02:45→22:24)
[2016-07-30] MEDS ORDERED: SODIUM CHLORIDE 500 ML IV STA (06:22)
[2016-07-30] MEDS: oxyCODONE HCL 5 MG TABLET PO PRN ×3 (07:54→19:03)
[2016-07-30] MEDS: ACETAMINOPHEN 325 MG TABLET (FP) PO PRN ×3 (07:54→19:02)
[2016-07-30] MEDS ORDERED: PT OWN MED DRAWER 7, Y5N ONE ×2 (08:43→20:43)
[2016-07-30] MEDS: ASPIRIN 81 MG CHEWABLE TABLETS PO SCH (09:05)
[2016-07-30] MEDS: PANTOPRAZOLE SODIUM 100 ML IVPB SCH (09:05)
[2016-07-30] MEDS: ENOXAPARIN NA (PORCINE) 40 MG/0.4 ML DISP.SYRIN SQ SCH (09:06)
[2016-07-30 09:28] LABS: MCH 29.9 pg (25.7-33.7); MEAN CELL VOLUME 96.4 fl (80-96); MEAN PLT VOLUME 10.4 fl (7.5-11.1); PLATELET COUNT 416 K/MM3 (134-434); RDW 19.5 % (11.6-15.6); WHITE BLOOD COUNT 12.9 K/mm3 (4.0-10.0)
[2016-07-30 09:56] LABS: CALCIUM 7.4 mg/dL (8.5-10.1); CREATININE 1.6 mg/dL (0.55-1.02); MAGNESIUM 1.8 mg/dL (1.8-2.4); PHOSPHOROUS 5.4 mg/dL (2.5-4.9)
[2016-07-30] MEDS ORDERED: ERTAPENEM SODIUM 1 GM in SODIUM CHLORIDE 50 ML IVPB SCH (10:00)
--- NOTE | 2016-07-30 11:41 | PN ---
Progress Note (short form) - Note Progress Note: surgery please reference Dr. Yost's post op note on paper in chart. Please maintain bennett to monitor urine output, to prevent bladder distension near the anastamosis, and due to bladder mobilization during surgery and expected retention.
--- NOTE | 2016-07-30 11:41 | PN ---
Progress Note (short form) - Note Progress Note: Progress Note (short form) - Note Progress Note: Patient seen and examined s/p surgery POD-1 low anterior resection, No symptoms of bleeding and overall doing well Vital Signs Period Temp Pulse Resp BP Sys/[place] Pulse Ox Last 24 Hr 97.3 F-98.2 F 65-108 8-25 100-194/51-108 88-100 HEENT: TONEY, EOM Intact Oropharynx: No thrush, No mucositis Cor: RSR, No murmurs, No gallops Lungs: diminished breath sounds bilaterally Abd: Soft, Normal bowel sounds, No organomegaly, distension Ext:No significant edema Skin: No rashes, Integument intact CBC, BMP 07/30/16 07:50 07/30/16 07:50 INR 1.16 (0.82-1.09) H 07/29/16 06:35 Impression: For surgery MPD- on ASA, Hydrea[ dose decreased] , currently off anagrelide Plan: ET -continue hydrurea Acute Hb drop -Likely post op since no evidence of blood loss otherwise and she is doing well -Transfuse 2 units PRBC -Hold Lovenox till Hb stabilises [2 q 12 hr CBC checks stable].
--- NOTE | 2016-07-30 13:15 | PN ---
Progress Note, Physician History of Present Illness: PULMONARY ALERT,S/P LAP WITH LOW ANTERIOR RESECTION WITH RECTOSIGMOID AND LEFT COLON - Current Medication List Current Medications: Active Medications Acetaminophen (Tylenol -) 650 mg PO Q4H PRN PRN Reason: FEVER OR PAIN Last Admin: 07/30/16 07:54 Dose: 650 mg Aclidinium [place] (Tudorza -) 1 puff IH BID [facility] Last Admin: 07/30/16 09:04 Dose: 1 puff Albuterol Sulfate (Ventolin Hfa Inhaler -) 2 puff IH Q4H PRN PRN Reason: SHORTNESS OF BREATH Albuterol Sulfate (Ventolin Hfa Inhaler -) 1 puff IH Q4H PRN PRN Reason: SHORTNESS OF BREATH Alprazolam (Xanax -) 0.25 mg PO Q8H PRN Last Admin: 07/30/16 02:45 Dose: 0.25 mg Aspirin (Asa -) 81 mg PO DAILY [facility] Last Admin: 07/30/16 09:05 Dose: 81 mg Budesonide/Formoterol Fumarate (Symbicort 160/4.5mcg -) 2 puff IH BID [facility] Last Admin: 07/30/16 00:16 Dose: Not Given Dicyclomine HCl (Bentyl -) 10 mg PO Q6H PRN PRN Reason: PAIN Enoxaparin Sodium (Lovenox -) 40 mg SQ DAILY [facility] Last Admin: 07/30/16 09:06 Dose: 40 mg Hydromorphone HCl (Dilaudid Injection -) 1 mg IVPUSH [id number] PRN PRN Reason: PAIN Stop: 08/01/16 15:22 Last Admin: 07/29/16 23:30 Dose: 1 mg Hydroxyurea (Hydrea -) 500 mg PO MoFr@10 [facility] Pantoprazole Sodium (Protonix 40mg Ivpb (Pre-Docked)) 100 mls @ 200 mls/hr IVPB DAILY [facility] Last Admin: 07/30/16 09:05 Dose: 200 mls/hr Dextrose/Sodium Chloride (D5-Ns -) 1,000 mls @ 83 mls/hr IV ASDIR [facility] Last Admin: 07/29/16 20:00 Dose: 83 mls/hr Ibuprofen (Caldolor Injection -) 600 mg IVPB Q8H PRN PRN Reason: FEVER Morphine Sulfate (Morphine Injection -) 4 mg IVPB Q3H PRN PRN Reason: MODERATE PAIN Ondansetron HCl (Zofran Injection) 4 mg IVPB Q6H PRN PRN Reason: NAUSEA Last Admin: 07/30/16 01:10 Dose: 4 mg Oxycodone HCl (Roxicodone -) 7.5 mg PO Q4H PRN PRN Reason: PAIN Last Admin: 07/30/16 07:54 Dose: 7.5 mg Trazodone HCl (Desyrel -) 100 mg PO HS [facility] Last Admin: 07/29/16 22:33 Dose: 100 mg - Objective Vital Signs: Vital Signs Temperature 98.1 F 07/30/16 12:35 Pulse Rate 80 07/30/16 08:00 Respiratory Rate 20 07/30/16 08:00 Blood Pressure 111/51 07/30/16 08:00 O2 Sat by Pulse Oximetry (%) 96 07/30/16 09:00 Constitutional: Yes: Well Nourished, Calm Eyes: Yes: WNL HENT: Yes: WNL Neck: Yes: WNL Cardiovascular: Yes: Regular Rate and Rhythm, S1, S2 Respiratory: Yes: Diminished (POOR INSP EFFORT) Gastrointestinal: Yes: Soft (TENDERNESS) Extremities: Yes: WNL Edema: No Labs: CBC, BMP 07/30/16 07:50 07/30/16 07:50 INR, PTT INR 1.16 (0.82-1.09) H 07/29/16 06:35 Problem List - Problems (1) Bronchitis Code(s): J40 - BRONCHITIS, NOT SPECIFIED ACUTE OR CHRONIC (2) IBS (irritable bowel syndrome) Code(s): K58.9 - IRRITABLE BOWEL SYNDROME WITHOUT DIARRHEA Qualifiers: Qualified Code(s): K58.9 - Irritable bowel syndrome without diarrhea (3) Stricture of sigmoid colon Code(s): K56.69 - OTHER INTESTINAL OBSTRUCTION (4) Anemia Code(s): D64.9 - ANEMIA, UNSPECIFIED (5) COPD (chronic obstructive pulmonary disease) Code(s): J44.9 - CHRONIC OBSTRUCTIVE PULMONARY DISEASE, UNSPECIFIED Qualifiers : COPD type: COPD with acute exacerbation Qualified Code(s): J44.1 - Chronic obstructive pulmonary disease with (acute) exacerbation (6) Diverticulosis Code(s): K57.90 - DVRTCLOS OF INTEST, PART UNSP, W/O PERF OR ABSCESS W/O BLEED (7) Myeloproliferative disorder Code(s): D47.1 - CHRONIC MYELOPROLIFERATIVE DISEASE Assessment/Plan IMP: SEVERE SIGMOID STRICTURE, S/P LOW ANTERIOR RESECTION ESSENTIAL THROMBOCYTHEMIA/MDS LEFT ADRENALECTOMY (BENIGN) COPD (FORMER SMOKER) PLAN: IVF ANALGESICS INCENTIVE SPIROMETER INHALED BRONCHODILATORS TRANSFUSE MONITOR H+H,SOULEYMANE YAN
[2016-07-30 13:37] LABS: PLATELET ESTIMATE ADEQUATE (NORMAL)
[2016-07-30 13:38] LABS: ANISOCYTOSIS 1+; HYPOCHROMIA 1+; OVALOCYTES 1+; POIKILOCYTOSIS 1+; TEAR DROP CELLS FEW
--- NOTE | 2016-07-30 19:07 | PN ---
Progress Note, Physician Chief Complaint: Pt. pain controlled, no GA complaints. - Current Medication List Current Medications: Active Medications Acetaminophen (Tylenol -) 650 mg PO Q4H PRN PRN Reason: FEVER OR PAIN Last Admin: 07/30/16 13:14 Dose: 650 mg Aclidinium [place] (Tudorza -) 1 puff IH BID [facility] Last Admin: 07/30/16 09:04 Dose: 1 puff Albuterol Sulfate (Ventolin Hfa Inhaler -) 2 puff IH Q4H PRN PRN Reason: SHORTNESS OF BREATH Albuterol Sulfate (Ventolin Hfa Inhaler -) 1 puff IH Q4H PRN PRN Reason: SHORTNESS OF BREATH Alprazolam (Xanax -) 0.25 mg PO Q8H PRN Last Admin: 07/30/16 13:53 Dose: 0.25 mg Aspirin (Asa -) 81 mg PO DAILY [facility] Last Admin: 07/30/16 09:05 Dose: 81 mg Budesonide/Formoterol Fumarate (Symbicort 160/4.5mcg -) 2 puff IH BID [facility] Last Admin: 07/30/16 11:00 Dose: Not Given Dicyclomine HCl (Bentyl -) 10 mg PO Q6H PRN PRN Reason: PAIN Enoxaparin Sodium (Lovenox -) 40 mg SQ DAILY [facility] Last Admin: 07/30/16 09:06 Dose: 40 mg Hydromorphone HCl (Dilaudid Injection -) 1 mg IVPUSH [id number] PRN PRN Reason: PAIN Stop: 08/01/16 15:22 Last Admin: 07/29/16 23:30 Dose: 1 mg Hydroxyurea (Hydrea -) 500 mg PO MoFr@10 [facility] Pantoprazole Sodium (Protonix 40mg Ivpb (Pre-Docked)) 100 mls @ 200 mls/hr IVPB DAILY [facility] Last Admin: 07/30/16 09:05 Dose: 200 mls/hr Dextrose/Sodium Chloride (D5-Ns -) 1,000 mls @ 83 mls/hr IV ASDIR [facility] Last Admin: 07/29/16 20:00 Dose: 83 mls/hr Ibuprofen (Caldolor Injection -) 600 mg IVPB Q8H PRN PRN Reason: FEVER Morphine Sulfate (Morphine Injection -) 4 mg IVPB Q3H PRN PRN Reason: MODERATE PAIN Ondansetron HCl (Zofran Injection) 4 mg IVPB Q6H PRN PRN Reason: NAUSEA Last Admin: 07/30/16 01:10 Dose: 4 mg Oxycodone HCl (Roxicodone -) 7.5 mg PO Q4H PRN PRN Reason: PAIN Last Admin: 07/30/16 13:13 Dose: 7.5 mg Trazodone HCl (Desyrel -) 100 mg PO HS [facility] Last Admin: 07/29/16 22:33 Dose: 100 mg - Objective Vital Signs: Vital Signs Temperature 98.9 F 07/30/16 18:30 Pulse Rate 80 07/30/16 18:30 Respiratory Rate 18 07/30/16 18:30 Blood Pressure 122/61 07/30/16 18:30 O2 Sat by Pulse Oximetry (%) 96 07/30/16 09:00 Constitutional: Yes: Well Nourished, No Distress, Calm Musculoskeletal: Yes: WNL Neurological: Yes: WNL, Alert, Oriented Labs: CBC, BMP 07/30/16 07:50 07/30/16 07:50 INR, PTT INR 1.16 (0.82-1.09) H 07/29/16 06:35 Assessment/Plan POD#1 s/p lower anterior resection under GA. Doing well. D/C from anesthesia care.
[2016-07-30] MEDS: traZODone HCL 50 MG TABLET (FP) PO SCH (21:03)
--- NOTE | 2016-07-30 21:32 | OP ---
DATE OF OPERATION: 07/29/2016 PREOPERATIVE DIAGNOSIS: Partial large bowel obstruction, sigmoid stricture postoperative, history of thrombocytosis, anxiety depressive disorder, cardiomegaly, hepatosplenomegaly, history of adrenal mass, severe chronic obstructive pulmonary disease, respiratory failure requiring oxygen, questionable hypertension. POSTOPERATIVE DIAGNOSIS: Partial large bowel obstruction, sigmoid stricture postoperative, history of thrombocytosis, anxiety depressive disorder, cardiomegaly, hepatosplenomegaly, history of adrenal mass, severe chronic obstructive pulmonary disease, respiratory failure requiring oxygen, questionable hypertension. PROCEDURE: Exploratory laparotomy, extensive lysis of adhesions, open lower anterior resection, splenic flexure takedown, omental patch, anal dilatation, rigid sigmoidoscopy, a 15-cm excision of devitalized tissue, extensive peritoneal lavage. SURGEON: Shiraz Joyner MD LOG MARKER: Bravo Miller DO ANESTHESIA: Yanci Prado MD (general). ESTIMATED BLOOD LOSS: Less than 100 mL. SPECIMEN: Rectosigmoid with left colon. INDICATION FOR PROCEDURE: This is a 66-year-old female with multiple medical comorbidities who was admitted with abdominal pain. Ultimate diagnosis is consistent with a partial large bowel obstruction secondary to sigmoid stricture. Patient unable to tolerate p.o. without abdominal pain and, therefore, being managed urgently during this admission. OPERATIVE FINDINGS: 1. Markedly dilated transverse colon up to the splenic flexure. 2. The left colon from the splenic flexure down to the rectum was markedly decompressed and collapsed. 3. Extensive adhesions from her previous abdominal surgery. 4. Very lax peritoneal reflection of the right and left colon. 5. Splenomegaly, hepatomegaly as described on CAT scan. 6. Mild peritoneal ascites. DESCRIPTION OF PROCEDURE: Patient identified and appropriately positioned on the operating room table. After placement of general anesthesia, the patient was then subsequently placed in a low lithotomy position. The abdomen was prepped with ChloraPrep. The perineal region was prepped with Betadine. The previous lower midline scar was sharply excised. Approximately 15 cm of devitalized tissue was sent as specimen. Next, the fascia was divided sharply. The patient had a small hernia at the level of the umbilicus. This was not repaired nor addressed during this operation. She had markedly attenuated fascia in the lower midline but no obvious defects. The fascia was divided at the level of the umbilicus. The perineum was excised, and upon entering the abdomen, there were multiple adhesions to the anterior abdominal wall, the colon, small and large bowel, and portions of omentum. These adhesions were taken down sharply under direct vision. Then the incision was opened little by little to free all of these adhesions. Ultimately the length of the incision was opened. The patient had a multitude of intra-abdominal adhesions that required a good 20-30 minutes for lysis. Once a complete lysis of adhesions was done, gross examination revealed a very decompressed sigmoid colon with extensive diverticular disease, decompressed left colon up to the splenic flexure. The transverse colon was markedly dilated to the splenic flexure. Given this finding, I feel that the patient had a problem in the sigmoid; however, the left colon was probably not functioning as well because of the various angulations the colon had due to her splenomegaly. The left colon was decompressed; therefore, I felt it necessary to encompass this within the operative resection. The proximal line resection was chosen obviously to the distal transverse colon just proximal to the splenic flexure. The distal line resection was chosen to be in the middle 1/3 of the rectum. The sigmoid colon was lifted to the anterior abdominal wall. The peritoneum reflection on either side was then subsequently scored, and the presacral space was entered at the level of the brim. This was then walked back superiorly. Next, the left colon and sigmoid colon was rolled to the patient's right side, and the reflection along this side was then scored with the cautery. In doing so, the left ovarian vessel was identified, and deeper to this, the left ureter. The ureter and ovarian vessels were left in the retroperitoneum in the plane without being violated. The vessels were then subsequently mobilized off the retroperitoneum. The sigmoid branch was then serially taken with the LigaSure device. Four welds placed prior to complete the division and the sigmoid branch divided. Next, the peritoneal reflection along the proximal rectum was taken in a similar fashion on either side and now the superior rectals were identified on either side. The left and right ureter was left in the pelvic wall behind the peritoneal reflection at this level. The superior rectals on either side were then subsequently taken with LigaSure device. Next, the rectum was then divided in the mid rectum with a TA 45 blue stapler, and the proximally divided colon was then rolled into the operative field and the colon mobilized out of the retroperitoneum toward the level of the splenic flexure. The patient had a very low splenic flexure; however, the area was markedly tucked into the retroperitoneum due to the splenomegaly this patient had. There were also several angulations of the colon just distal to the splenic flexure because of the splenomegaly. The reflection at this level was then scored. The renal colic ligament was taken with the cautery, and the gastrocolic ligament was taken with the LigaSure device and the splenocolic ligament was taken with the LigaSure device. Once the spleen was mobilized completely, the transverse colon now dropped into the pelvis. The proximal line resection was chosen just in the distal transverse colon just proximal to the splenic flexure as described earlier. A colotomy was made in the left colon. A 28 EEA anvil placed and milked proximally into the transverse colon. The transverse colon was then divided just proximal to the splenic flexure with a ISIS 80/3.8-mm stapler. The anvil now spiked through the middle aspect of the staple line. The spike removed and the anvil itself was sutured to the anvil with a 3-0 Prolene suture. At this point, the surgeon and 1st primary teaching assistant changed gloves and gowns, the operative field irrigated and noted to be hemostatic. At this point, the 1st primary teaching assistant went below and performed anal dilatation for approximately 3 fingerbreadths. The dilators were then serially placed small, medium, and large up to the rectal stump under direct vision. There were no areas of narrowing or stricture noted from the anus to the rectal stump. Next, the stapler placed and the stapler spiked through the midaspect of the staple line of the rectal stump. The 2 ends mated under direct vision and closed. Stapler fired. anesthesiology physician assistant reported 2 full, complete donuts. No areas of thinning. The litigation legal assistant now performed limited air insufflation via the anus, and the anastomosis was submerged in the pelvis under water and air leak tested 6 times. There were no bubbled identified. The 1st primary teaching assistant opened the door to the sigmoidoscope and the area milked in a retrograde fashion out the anus, and there were no air leaks noted. This was to check for a ball valve affect. The colon on either side of the anastomosis was grossly pink. There was no evidence of ischemia. The staple line is grossly intact as well. At this point, the 1st primary teaching assistant performed a limited sigmoidoscopy to the staple line but not beyond. The mucosa on either side was grossly intact and pink. There were no gross breaks from the inside as well. The staple line was checked 1 more time under water, and again, no air leaks noted. The 1st primary teaching assistant now came above. The abdomen was copiously irrigated. A portion of omentum that was left was divided off the transverse colon along with the vascular pedicle and placed into the pelvis and anchored to the fat around the colon anastomosis with interrupted 3-0 chromic sutures and an omental pedicle flap. The abdomen at this point was irrigated. Approximately 5 L of warm irrigation was used. The irrigant retrieved and the operative field noted to be hemostatic. The midline fascia was then reapproximated with a running No. 1 PDS suture. The subcutaneous space was irrigated. The wound was left open and packed with iodoform packing followed by 4 x 4 gauze. The patient tolerated the procedure well. Sponge and instrument counts correct. Manny ANDUJAR [id number] MTDD
[2016-07-30 23:08] LABS: MCH 30.5 pg (25.7-33.7); MCHC 32.8 g/dl (32.0-36.0); MEAN CELL VOLUME 92.8 fl (80-96); MEAN PLT VOLUME 10.1 fl (7.5-11.1); PLATELET COUNT 377 K/MM3 (134-434); RDW 19.2 % (11.6-15.6); WHITE BLOOD COUNT 11.6 K/mm3 (4.0-10.0)
[2016-07-31] MEDS: DEXTROSE 5%-NORMAL SALINE 1,000 ML IV SCH ×3 (05:31→19:15)
[2016-07-31] MEDS: oxyCODONE HCL 5 MG TABLET PO PRN ×3 (06:25→18:57)
[2016-07-31] MEDS: ACETAMINOPHEN 325 MG TABLET (FP) PO PRN ×3 (06:26→18:57)
[2016-07-31 08:22] LABS: BASOPHIL 0.7 % (0-2.0); EOSINOPHIL 1.1 % (0-4.5); MCH 30.6 pg (25.7-33.7); MCHC 33.1 g/dl (32.0-36.0); MEAN CELL VOLUME 92.7 fl (80-96); MEAN PLT VOLUME 9.9 fl (7.5-11.1); NEUTROPHILS 89.8 % (42.8-82.8); PLATELET COUNT 370 K/MM3 (134-434); RDW 19.4 % (11.6-15.6); WHITE BLOOD COUNT 12.6 K/mm3 (4.0-10.0)
[2016-07-31] MEDS ORDERED: PT OWN MED DRAWER 7, Y5N ONE (09:33)
[2016-07-31] MEDS: BUDESONIDE/FORMETEROL FUMARATE 160/4.5 mcg INHALER IH SCH ×2 (09:37→21:26)
[2016-07-31] MEDS: ACLIDINIUM BROMIDE 400 MCG/INH AERO.POWD IH SCH ×2 (09:37→21:26)
[2016-07-31] MEDS: PANTOPRAZOLE SODIUM 100 ML IVPB SCH (09:37)
--- NOTE | 2016-07-31 13:03 | PN ---
Progress Note (short form) - Note Progress Note: Progress Note (short form) - Note Progress Note: Patient seen and examined s/p surgery POD-2 low anterior resection, Today she said she had hematochezia just now No other evidence of bleeding Vital Signs Period Temp Pulse Resp BP Sys/[place] Pulse Ox Last 24 Hr 98.2 F-99.7 F 79-100 18-18 102-156/54-82 96-98 HEENT: TONEY, EOM Intact Oropharynx: No thrush, No mucositis Cor: RSR, No murmurs, No gallops Lungs: diminished breath sounds bilaterally Abd: Soft, Normal bowel sounds, No organomegaly, distension Ext:No significant edema Skin: No rashes, Integument intact CBC, BMP 07/31/16 07:30 07/30/16 07:50 INR 1.16 (0.82-1.09) H 07/29/16 06:35 Impression: For surgery MPD- on ASA, Hydrea[ dose decreased] , currently off anagrelide Plan: ET -continue hydrurea,ASA Acute Hb drop -Hb now stable but new bleeding -Hold Lovenox till no bleeding .
--- NOTE | 2016-07-31 13:33 | PN ---
Progress Note, Physician History of Present Illness: PROGRESS ALERT,C/O RECTAL BLEEDING,+INCISIONAL PAIN - Current Medication List Current Medications: Active Medications Acetaminophen (Tylenol -) 650 mg PO Q4H PRN PRN Reason: FEVER OR PAIN Last Admin: 07/31/16 13:18 Dose: 650 mg Aclidinium [place] (Tudorza -) 1 puff IH BID [facility] Last Admin: 07/31/16 09:37 Dose: 1 puff Albuterol Sulfate (Ventolin Hfa Inhaler -) 2 puff IH Q4H PRN PRN Reason: SHORTNESS OF BREATH Albuterol Sulfate (Ventolin Hfa Inhaler -) 1 puff IH Q4H PRN PRN Reason: SHORTNESS OF BREATH Alprazolam (Xanax -) 0.25 mg PO Q8H PRN Last Admin: 07/30/16 22:24 Dose: 0.25 mg Aspirin (Asa -) 81 mg PO DAILY [facility] Last Admin: 07/30/16 09:05 Dose: 81 mg Budesonide/Formoterol Fumarate (Symbicort 160/4.5mcg -) 2 puff IH BID [facility] Last Admin: 07/31/16 09:37 Dose: 2 puff Dicyclomine HCl (Bentyl -) 10 mg PO Q6H PRN PRN Reason: PAIN Enoxaparin Sodium (Lovenox -) 40 mg SQ DAILY [facility] Last Admin: 07/30/16 09:06 Dose: 40 mg Hydromorphone HCl (Dilaudid Injection -) 1 mg IVPUSH [id number] PRN PRN Reason: PAIN Stop: 08/01/16 15:22 Last Admin: 07/29/16 23:30 Dose: 1 mg Hydroxyurea (Hydrea -) 500 mg PO MoFr@10 [facility] Pantoprazole Sodium (Protonix 40mg Ivpb (Pre-Docked)) 100 mls @ 200 mls/hr IVPB DAILY [facility] Last Admin: 07/31/16 09:37 Dose: 200 mls/hr Dextrose/Sodium Chloride (D5-Ns -) 1,000 mls @ 83 mls/hr IV ASDIR [facility] Last Admin: 07/31/16 05:31 Dose: 83 mls/hr Ibuprofen (Caldolor Injection -) 600 mg IVPB Q8H PRN PRN Reason: FEVER Morphine Sulfate (Morphine Injection -) 4 mg IVPB Q3H PRN PRN Reason: MODERATE PAIN Last Admin: 07/30/16 21:14 Dose: 4 mg Ondansetron HCl (Zofran Injection) 4 mg IVPB Q6H PRN PRN Reason: NAUSEA Last Admin: 07/30/16 01:10 Dose: 4 mg Oxycodone HCl (Roxicodone -) 7.5 mg PO Q4H PRN PRN Reason: PAIN Last Admin: 07/31/16 13:17 Dose: 7.5 mg Trazodone HCl (Desyrel -) 100 mg PO HS [facility] Last Admin: 07/30/16 21:03 Dose: 100 mg - Objective Vital Signs: Vital Signs Temperature 98.4 F 07/31/16 08:00 Pulse Rate 92 H 07/31/16 08:00 Respiratory Rate 18 07/31/16 08:00 Blood Pressure 126/57 07/31/16 08:00 O2 Sat by Pulse Oximetry (%) 98 07/31/16 09:00 Constitutional: Yes: Well Nourished, Calm Eyes: Yes: WNL HENT: Yes: WNL Neck: Yes: WNL Cardiovascular: Yes: Regular Rate and Rhythm, S1, S2 Respiratory: Yes: CTA Bilaterally Gastrointestinal: Yes: Soft Extremities: Yes: WNL Edema: No Labs: CBC, BMP 07/31/16 07:30 Problem List - Problems (1) Bronchitis Code(s): J40 - BRONCHITIS, NOT SPECIFIED ACUTE OR CHRONIC (2) IBS (irritable bowel syndrome) Code(s): K58.9 - IRRITABLE BOWEL SYNDROME WITHOUT DIARRHEA Qualifiers: Qualified Code(s): K58.9 - Irritable bowel syndrome without diarrhea (3) Stricture of sigmoid colon Code(s): K56.69 - OTHER INTESTINAL OBSTRUCTION (4) Anemia Code(s): D64.9 - ANEMIA, UNSPECIFIED (5) COPD (chronic obstructive pulmonary disease) Code(s): J44.9 - CHRONIC OBSTRUCTIVE PULMONARY DISEASE, UNSPECIFIED Qualifiers : COPD type: COPD with acute exacerbation Qualified Code(s): J44.1 - Chronic obstructive pulmonary disease with (acute) exacerbation (6) Diverticulosis Code(s): K57.90 - DVRTCLOS OF INTEST, PART UNSP, W/O PERF OR ABSCESS W/O BLEED (7) Myeloproliferative disorder Code(s): D47.1 - CHRONIC MYELOPROLIFERATIVE DISEASE Assessment/Plan IMP: SEVERE SIGMOID STRICTURE, S/P LOW ANTERIOR RESECTION RECTAL BLEEDING ESSENTIAL THROMBOCYTHEMIA/MDS LEFT ADRENALECTOMY (BENIGN) COPD (FORMER SMOKER) PLAN: IVF ANALGESICS INCENTIVE SPIROMETER INHALED BRONCHODILATORS TRANSFUSE PRN MONITOR H+H,SOULEYMANE YAN
[2016-07-31 13:45] LABS: MCHC 32.6 g/dl (32.0-36.0); MEAN CELL VOLUME 91.9 fl (80-96); MEAN PLT VOLUME 8.8 fl (7.5-11.1); PLATELET COUNT 360 K/MM3 (134-434); RDW 19.7 % (11.6-15.6); WHITE BLOOD COUNT 13.4 K/mm3 (4.0-10.0)
[2016-07-31 13:59] LABS: INR 1.15 (0.82-1.09); PROTHROMBIN TIME (PATIENT) 12.7 SEC (9.98-11.88)
[2016-07-31 14:01] LABS: ACTIVATED PTT 29.2 SECONDS (26.9-34.4)
[2016-07-31 18:59] LABS: MCH 30.2 pg (25.7-33.7); MCHC 32.4 g/dl (32.0-36.0); MEAN CELL VOLUME 93.4 fl (80-96); MEAN PLT VOLUME 10.1 fl (7.5-11.1); PLATELET COUNT 448 K/MM3 (134-434); RDW 19.4 % (11.6-15.6); WHITE BLOOD COUNT 15.6 K/mm3 (4.0-10.0)
[2016-07-31] MEDS: traZODone HCL 50 MG TABLET (FP) PO SCH (21:26)
[2016-07-31] MEDS: ALPRAZolam 0.25 MG TABLET PO PRN (21:26)
[2016-08-01] MEDS: ACETAMINOPHEN 325 MG TABLET (FP) PO PRN ×3 (04:56→16:47)
[2016-08-01] MEDS: oxyCODONE HCL 5 MG TABLET PO PRN ×4 (04:56→16:48)
[2016-08-01 08:08] LABS: CALCIUM 7.7 mg/dL (8.5-10.1)
[2016-08-01 08:12] LABS: CREATININE 1.5 mg/dL (0.55-1.02)
[2016-08-01] MEDS ORDERED: PT OWN MED DRAWER 7, Y5N ONE (10:48)
[2016-08-01] MEDS: BUDESONIDE/FORMETEROL FUMARATE 160/4.5 mcg INHALER IH SCH ×2 (10:55→21:28)
[2016-08-01] MEDS: ASPIRIN 81 MG CHEWABLE TABLETS PO SCH (10:56)
[2016-08-01] MEDS: ACLIDINIUM BROMIDE 400 MCG/INH AERO.POWD IH SCH ×2 (10:56→21:28)
[2016-08-01] MEDS: HYDROXYUREA 500 MG CAPSULE PO SCH (10:56)
[2016-08-01] MEDS: PANTOPRAZOLE SODIUM 100 ML IVPB SCH (10:56)
[2016-08-01] MEDS: ALPRAZolam 0.25 MG TABLET PO PRN (11:07)
[2016-08-01] MEDS: DEXTROSE 5%-NORMAL SALINE 1,000 ML IV SCH ×2 (15:13→19:30)
--- NOTE | 2016-08-01 15:24 | PATH ---
Surgical Pathology Report Patient Name: SKYE ALMAGUER [facility]. Rec. #: [id number] /Age/Gender: 1950 (Age: 66) / F Account: [id number] Location: [address] [place] [address] Taken: 07/28/2016 Received: 07/29/2016 Reported: 08/01/2016 Physicians: Bridget Ashraf M.D. Specimen(s) Received PERIPHERAL BLOOD 4 GREEN TOP Clinical History History of myeloproliferative disorder on Hydrea Final Diagnosis MPN FISH STUDIES PERFORMED AND INTERPRETED AT [place], [place] ([id number]) ARE FOLLOWS: INTERPRETATION: No evidence of deletion 7q or monosomy 7 is present. No evidence of trisomy8 (+8) is present. No evidence of deletion 20q12 is present. No BCR/ABL1 t(9;22) translocation is detected. Comments: Correlation with pending cytogenetics ([id number]) is recommended. Electronically Signed Andrew Ewing M.D. Addendum Reported: 08/02/2016 Addendum Diagnosis FLOW CYTOMETRY PERFORMED AND INTERPRETED AT [facility] [place], [place] ([id number]) SHOWED THE FOLLOWING: INTERPRETATION: The CD34+ myeloblasts are 0.2% of total events. Left-shifted granulocytes There is no evidence of B or T-cell proliferative disorders. Phenotype: The CD34+ myeloblasts are 0.2%. Granulocytes are 91% of total cells and show left shift. Monocytes are 2% of total cells. There is no overt abnormal myeloid antigen expression. The B-cells (1% of total) appear polytypic. The T-cells (5% of total) show no crocker T-cell antigenic deletion. The CD:CD8 ratio is 3.2:1. Andrew Ewing M.D. Addendum Reported: 08/03/2016 Addendum Diagnosis JAK2 V617F MUTATION ANALYSIS BY PCR PERFORMED AND INTERPRETED AT [facility] [place], [place] ([id number]) SHOWED THE FOLLOWING: RESULTS: BOTH MUTANT AND WILD-TYPE JAK2 SEQUENCES WERE DETECTED. INTERPRETATION: POSITIVE FOR JAK2 V617F MUTATION. Comment: The acquired somatic V617F JAK2 mutation has been found in a majority of patients with Polycythemia Vera (PV) (>90%), and 30-50% of patients with either essential thrombocytopenia (ET) and or myelofibrosis (MF). according to literature. The mutation is nor detected in normal individuals. Andrew Ewing M.D. Addendum Reported: 08/05/2016 Addendum Diagnosis CYTOGENETIC KARYOTYPE ANALYSIS PERFORMED AND INTERPRETED AT [place], [place] ([id number]) SHOWED THE FOLLOWING: RESULTS: 46,XX [20] INTERPRETATION: Normal Female Karyotype. No consistent numerical or structural chromosome abnormalities were observed. Andrew Ewing M.D. Gross Description Received are 4 green top tubes of peripheral blood which are sent to [facility]/07/29/2016 [facility]/07/29/2016
--- NOTE | 2016-08-01 15:31 | PN ---
Progress Note (short form) - Note Progress Note: OOB to chair. Reports some blood in the stool this AM. No CP or SOB. Some residual incisional discomfort. Intake & Output 07/29/16 07/30/16 07/31/16 08/01/16 23:59 23:59 23:59 23:59 Intake Total 4010 3375 2113 500 Output Total 1019 620 3763 300 Balance 2510 3175 913 200 Last Vital Signs Temp Pulse Resp BP Pulse Ox 98.9 F 87 18 130/86 97 08/01/16 08:00 08/01/16 08:00 08/01/16 08:00 08/01/16 08:00 08/01/16 09:00 Active Medications Acetaminophen (Tylenol -) 650 mg PO Q4H PRN PRN Reason: FEVER OR PAIN Last Admin: 08/01/16 09:07 Dose: 650 mg Aclidinium [place] (Tudorza -) 1 puff IH BID [facility] Last Admin: 08/01/16 10:56 Dose: 1 puff Albuterol Sulfate (Ventolin Hfa Inhaler -) 2 puff IH Q4H PRN PRN Reason: SHORTNESS OF BREATH Albuterol Sulfate (Ventolin Hfa Inhaler -) 1 puff IH Q4H PRN PRN Reason: SHORTNESS OF BREATH Aspirin (Asa -) 81 mg PO DAILY [facility] Last Admin: 08/01/16 10:56 Dose: 81 mg Budesonide/Formoterol Fumarate (Symbicort 160/4.5mcg -) 2 puff IH BID [facility] Last Admin: 08/01/16 10:55 Dose: 2 puff Dicyclomine HCl (Bentyl -) 10 mg PO Q6H PRN PRN Reason: PAIN Enoxaparin Sodium (Lovenox -) 40 mg SQ DAILY [facility] Last Admin: 07/30/16 09:06 Dose: 40 mg Hydroxyurea (Hydrea -) 500 mg PO MoFr@10 [facility] Last Admin: 08/01/16 10:56 Dose: 500 mg Pantoprazole Sodium (Protonix 40mg Ivpb (Pre-Docked)) 100 mls @ 200 mls/hr IVPB DAILY [facility] Last Admin: 08/01/16 10:56 Dose: 200 mls/hr Dextrose/Sodium Chloride (D5-Ns -) 1,000 mls @ 42 mls/hr IV ASDIR [facility] Last Admin: 08/01/16 15:13 Dose: 42 mls/hr Ibuprofen (Caldolor Injection -) 600 mg IVPB Q8H PRN PRN Reason: FEVER Ondansetron HCl (Zofran Injection) 4 mg IVPB Q6H PRN PRN Reason: NAUSEA Last Admin: 07/30/16 01:10 Dose: 4 mg Trazodone HCl (Desyrel -) 100 mg PO HS [facility] Last Admin: 07/31/16 21:26 Dose: 100 mg Constitutional: Yes: Weak appearing, NAD Eyes: Yes: WNL HENT: Yes: WNL Neck: Yes: WNL Cardiovascular: Yes: Regular Rate and Rhythm, S1, S2 Respiratory: Yes: No wheeze Gastrointestinal: Yes: Soft Extremities: Yes: WNL Edema: No Labs: Laboratory Results - last 24 hr 07/31/16 07/31/16 08/01/16 18:40 21:11 06:05 WBC 15.6 H RBC 2.82 L Hgb 8.5 L Hct 26.3 L MCV 93.4 MCHC 32.4 RDW 19.4 H Plt Count 448 H D MPV 10.1 D Sodium 145 Potassium 4.8 Chloride 110 H Carbon Dioxide 28 Anion Gap 7 L BUN 16 Creatinine 1.5 H POC Glucometer 117 Random Glucose 96 Calcium 7.7 L Problem List - Problems (1) Bronchitis Code(s): J40 - BRONCHITIS, NOT SPECIFIED ACUTE OR CHRONIC (2) IBS (irritable bowel syndrome) Code(s): K58.9 - IRRITABLE BOWEL SYNDROME WITHOUT DIARRHEA Qualifiers: Qualified Code(s): K58.9 - Irritable bowel syndrome without diarrhea (3) Stricture of sigmoid colon Code(s): K56.69 - OTHER INTESTINAL OBSTRUCTION (4) Anemia Code(s): D64.9 - ANEMIA, UNSPECIFIED (5) COPD (chronic obstructive pulmonary disease) Code(s): J44.9 - CHRONIC OBSTRUCTIVE PULMONARY DISEASE, UNSPECIFIED Qualifiers : COPD type: COPD with acute exacerbation Qualified Code(s): J44.1 - Chronic obstructive pulmonary disease with (acute) exacerbation (6) Diverticulosis Code(s): K57.90 - DVRTCLOS OF INTEST, PART UNSP, W/O PERF OR ABSCESS W/O BLEED (7) Myeloproliferative disorder Code(s): D47.1 - CHRONIC MYELOPROLIFERATIVE DISEASE Assessment/Plan IMP: SEVERE SIGMOID STRICTURE, S/P LOW ANTERIOR RESECTION RECTAL BLEEDING ESSENTIAL THROMBOCYTHEMIA/MDS LEFT ADRENALECTOMY (BENIGN) COPD (FORMER SMOKER) PLAN: IVF ANALGESICS INCENTIVE SPIROMETER INHALED BRONCHODILATORS TRANSFUSE PRN MONITOR H+H,SOULEYMANE BAILEY
[2016-08-01 17:14] LABS: MCH 30.6 pg (25.7-33.7); MCHC 32.5 g/dl (32.0-36.0); MEAN CELL VOLUME 94.1 fl (80-96); PLATELET COUNT 415 K/MM3 (134-434); WHITE BLOOD COUNT 13.4 K/mm3 (4.0-10.0)
--- NOTE | 2016-08-01 18:00 | PN ---
Progress Note (short form) - Note Progress Note: surgery pt seen and examined. complains of neck pain after sleeping in her chair. no flatus. no abd pain. still some blood in stool. afebrile abd- soft, mild distension, minimal expected tenderness, incision clean, packing removed Laboratory Tests 07/31/16 18:40 WBC 15.6 H Hgb 8.5 L Plt Count 448 H D u/o > 1 liter A/P 1) Pod#3- cont npo, ivf, bennett 2) oxycodone 3) prophylaxis- venodyne, protonix, lovenox held for bleed 4) acute blood loss anemia from likely anastamotic bleed secondary to bleeding disorder- hgb stable after 2 units prbc. on hydroxyurea. lovenox held 5) LBO- follow path. suspect muscular hypertrophy 6) copd, thrombocytosis, per medicine/pulmonary/hematology 7) leukocytosis- doubt abd source, likely reactive with elevated plt and recent transfusion and underlying hematology disorder 8) open wound- irrigate with saline and cover with dry dressin
--- NOTE | 2016-08-01 19:59 | PN ---
Progress Note (short form) - Note Progress Note: PAtient seen and examined Denies any complaints AFVSS HEENT: TONEY, EOM Intact Oropharynx: No thrush, No mucositis Cor: RSR, No murmurs, No gallops Lungs: Clear to P&A Abd: Soft,dressing + LAbs reviewed Meds reviewed A/P 66 y/o patient with myeloproliferative disorder, s/p surgery for large bowel obstruction had rectal bleeding which has resolved on ASA Hold LMWH venodynes CBC--platelet count aceptable on hydrea twice weekly monitor
[2016-08-01] MEDS: traZODone HCL 50 MG TABLET (FP) PO SCH (21:28)
[2016-08-01 21:59] LABS: ANISOCYTOSIS 1+; MICROCYTOSIS 1+; OVALOCYTES 1+; PLATELET ESTIMATE ADEQUATE (NORMAL)
[2016-08-02] MEDS: oxyCODONE HCL 5 MG TABLET PO PRN ×3 (06:08→17:14)
[2016-08-02 08:09] LABS: ALBUMIN 2.4 g/dl (3.4-5.0); CALCIUM 7.9 mg/dL (8.5-10.1)
[2016-08-02 08:14] LABS: BILIRUBIN,TOTAL 0.3 mg/dL (0.2-1.0); CREATININE 1.2 mg/dL (0.55-1.02); TOT PROT 4.7 g/dl (6.4-8.2)
[2016-08-02 08:16] LABS: BASOPHIL 0.5 % (0-2.0); EOSINOPHIL 2.1 % (0-4.5); MCH 29.8 pg (25.7-33.7); MCHC 31.6 g/dl (32.0-36.0); MEAN CELL VOLUME 94.3 fl (80-96); MEAN PLT VOLUME 10.4 fl (7.5-11.1); NEUTROPHILS 89.9 % (42.8-82.8); PLATELET COUNT 365 K/MM3 (134-434); WHITE BLOOD COUNT 13.1 K/mm3 (4.0-10.0)
[2016-08-02] MEDS ORDERED: oxyCODONE HCL 5 MG TABLET PO PRN (09:31)
[2016-08-02] MEDS: ASPIRIN 81 MG CHEWABLE TABLETS PO SCH (10:04)
[2016-08-02] MEDS: PANTOPRAZOLE SODIUM 100 ML IVPB SCH (10:04)
[2016-08-02] MEDS: ENOXAPARIN NA (PORCINE) 40 MG/0.4 ML DISP.SYRIN SQ SCH (10:19)
[2016-08-02] MEDS: BUDESONIDE/FORMETEROL FUMARATE 160/4.5 mcg INHALER IH SCH ×2 (10:19→21:14)
[2016-08-02] MEDS: ACLIDINIUM BROMIDE 400 MCG/INH AERO.POWD IH SCH ×2 (10:19→21:14)
[2016-08-02] MEDS: ACETAMINOPHEN 325 MG TABLET (FP) PO PRN ×2 (10:30→17:10)
--- NOTE | 2016-08-02 13:01 | PN ---
Progress Note (short form) - Note Progress Note: Surgery pt seen and examined. complains of sore neck, sore back, sore buttock, and sore legs. she thinks she cant get comfortable in bed. no flatus. no nausea. no further blood in stool afebrile, tmax 101.1 u/o 900 abd- soft, mild distension, minimal tenderness, soft, incision clean A/P 1) Pod#4- cont npo, ivf, bennett 2) oxycodone, caldolor 3) prophylaxis- venodyne, protonix, (lovenox per medicine/hematology) 4) acute blood loss anemia from likely anastamotic bleed secondary to bleeding disorder- hgb stable after 2 units prbc. on hydroxyurea. (lovenox per medicine/hematology). resolved 5) LBO- follow path. suspect muscular hypertrophy 6) copd, thrombocytosis, per medicine/pulmonary/hematology 7) leukocytosis- doubt abd source, likely reactive with elevated plt and recent transfusion and underlying hematology disorder. slowly improving 8) open wound- irrigate with saline and cover with dry dressing 9) fever- cxr, ua, venous doppler, bc [place] atelectasis vs urine
[2016-08-02] MEDS ORDERED: DEXTROSE 5%-0.45% SALINE 1,000 ML IV SCH (13:15)
--- NOTE | 2016-08-02 13:43 | PATH ---
Surgical Pathology Report Patient Name: SKYE ALMAGUER [facility]. Rec. #: [id number] /Age/Gender: 1950 (Age: 66) / F Account: [id number] Location: [address] [place] [address]/[facility] Taken: 07/29/2016 Received: 08/01/2016 Reported: 08/02/2016 Physicians: Shiraz Joyner Specimen(s) Received A: DEVITALIZED SKIN B: RECTOSIGMOID COLON Clinical History Sigmoid stricture Final Diagnosis A. DEVITALIZED SKIN: BENIGN SKIN WITH DERMAL FIBROSIS. B. COLON, RECTOSIGMOID, LOW ANTERIOR RESECTION: COLON WITH EXTENSIVE DIVERTICULOSIS WITH FIBROSIS AND PROXIMAL STRICTURE FORMATION. SURGICAL RESECTION MARGINS APPEAR VIABLE. NO MALIGNNACY IDENTIFIED. Electronically Signed Andrew Ewing M.D. Gross Description A. Received in formalin, labeled "devitalized skin" is an 8.0 x 0.9 cm singh, elliptical, unoriented portion of skin excised to depth of 0.3 cm. Video Control Engineer sections are submitted in one cassette. B. Received in formalin, labeled "rectosigmoid colon" is a 37 cm in length portion of colon with a stapled proximal mucosal margin, per the surgeon. The distal mucosal margin is open. The serosa is singh-bowman with focal outpouching, consistent with diverticula. The specimen displays moderate attached pericolonic adipose tissue. The mucosa is singh with normal folds. No mucosal masses are identified. Sectioning reveals multiple uncomplicated diverticula. Video Control Engineer sections are submitted in 14 cassettes as follows: 1-proximal mucosal margin; 2-distal mucosal margin; 4-95-kbalikwrhkabnx diverticula. /08/01/2016 [facility]/08/01/2016
--- NOTE | 2016-08-02 15:21 | PN ---
Progress Note (short form) - Note Progress Note: Ambulating in the hallway. Fever this AM. Dry cough. Currently afebrile. Minimal abdominal discomfort. No flatus/BM. Constitutional: Yes: Weak appearing, NAD Eyes: Yes: WNL HENT: Yes: WNL Neck: Yes: WNL Cardiovascular: Yes: Regular Rate and Rhythm, S1, S2 Respiratory: Yes: Decreased BS at the bases with rhonchi Gastrointestinal: Yes: Soft Extremities: Yes: WNL Edema: No Labs: Laboratory Results - last 24 hr 07/29/16 08/01/16 08/02/16 09:45 16:10 05:35 WBC 13.4 H RBC 2.69 L Hgb 8.2 L Hct 25.3 L MCV 94.1 MCHC 32.5 RDW 19.0 H Plt Count 415 MPV 10.0 Neutrophils % 85.0 H Lymphocytes % 6.0 L Monocytes % 6.0 D Eosinophils % Basophils % Band Neutrophils 3.0 D Platelet Estimate Adequate Anisocytosis 1+ Microcytosis 1+ Ovalocytes 1+ Sodium 145 Potassium 4.9 Chloride 111 H Carbon Dioxide 28 Anion Gap 6 L BUN 18 Creatinine 1.2 H Creat Clearance w eGFR 44.95 Random Glucose 90 Calcium 7.9 L Total Bilirubin 0.3 AST 17 D ALT 13 Alkaline Phosphatase 58 D Total Protein 4.7 L Albumin 2.4 L D Blood Type A POSITIVE Antibody Screen Negative Crossmatch See Detail 08/02/16 05:35 WBC 13.1 H RBC 2.68 L Hgb 8.0 L Hct 25.3 L MCV 94.3 MCHC 31.6 L RDW 19.0 H Plt Count 365 MPV 10.4 Neutrophils % 89.9 H Lymphocytes % 4.7 L D Monocytes % 2.8 L Eosinophils % 2.1 D Basophils % 0.5 Band Neutrophils Platelet Estimate Anisocytosis Microcytosis Ovalocytes Sodium Potassium Chloride Carbon Dioxide Anion Gap BUN Creatinine Creat Clearance w eGFR Random Glucose Calcium Total Bilirubin AST ALT Alkaline Phosphatase Total Protein Albumin Blood Type Antibody Screen Crossmatch Problem List - Problems (1) Bronchitis Code(s): J40 - BRONCHITIS, NOT SPECIFIED ACUTE OR CHRONIC (2) IBS (irritable bowel syndrome) Code(s): K58.9 - IRRITABLE BOWEL SYNDROME WITHOUT DIARRHEA Qualifiers: Qualified Code(s): K58.9 - Irritable bowel syndrome without diarrhea (3) Stricture of sigmoid colon Code(s): K56.69 - OTHER INTESTINAL OBSTRUCTION (4) Anemia Code(s): D64.9 - ANEMIA, UNSPECIFIED (5) COPD (chronic obstructive pulmonary disease) Code(s): J44.9 - CHRONIC OBSTRUCTIVE PULMONARY DISEASE, UNSPECIFIED Qualifiers : COPD type: COPD with acute exacerbation Qualified Code(s): J44.1 - Chronic obstructive pulmonary disease with (acute) exacerbation (6) Diverticulosis Code(s): K57.90 - DVRTCLOS OF INTEST, PART UNSP, W/O PERF OR ABSCESS W/O BLEED (7) Myeloproliferative disorder Code(s): D47.1 - CHRONIC MYELOPROLIFERATIVE DISEASE Assessment/Plan IMP: SEVERE SIGMOID STRICTURE, S/P LOW ANTERIOR RESECTION RECTAL BLEEDING ESSENTIAL THROMBOCYTHEMIA/MDS LEFT ADRENALECTOMY (BENIGN) COPD (FORMER SMOKER) PLAN: IVF ANALGESICS INCENTIVE SPIROMETER INHALED BRONCHODILATORS TRANSFUSE PRN MONITOR H+H,LYTES MONITOR OFF ABX FOR NOW -> MOST LIKELY CAUSE OF TRANSIENT FEVER IS ATELECTASIS DR BAILEY
--- NOTE | 2016-08-02 20:28 | PN ---
Progress Note (short form) - Note Progress Note: Patient seen and examined C/O abdominal pains No further rectal bleeding Not passing any gas as yet Last Vital Signs Temp Pulse Resp BP Pulse Ox 97.8 F 95 H 20 137/76 98 08/02/16 15:05 08/02/16 15:05 08/02/16 15:05 08/02/16 11:00 08/02/16 09:00 HEENT: TONEY, EOM Intact Oropharynx: No thrush, No mucositis Cor: RSR, No murmurs, No gallops Lungs: decreased breath sounds bilaterally Abd: dresssing intact , Distended Bowel sound audible Ext:No significant edema Skin: No rashes, Integument intact Tillman catheter CBC, BMP 08/02/16 05:35 08/02/16 05:35 Current Medications Generic Name Dose Route Start Last Admin Trade Name Freq PRN Reason Stop Dose Admin Acetaminophen 650 mg 07/29/16 14:59 08/02/16 17:10 Tylenol - PO 650 mg Q4H PRN Administration FEVER OR PAIN Aclidinium [place] 1 puff 07/29/16 22:00 08/02/16 10:19 Tudorza - IH 1 puff BID [facility] Administration Albuterol Sulfate 2 puff 07/29/16 14:59 Ventolin Hfa Inhaler - IH Q4H PRN SHORTNESS OF BREATH Albuterol Sulfate 1 puff 07/29/16 14:59 Ventolin Hfa Inhaler - IH Q4H PRN SHORTNESS OF BREATH Alprazolam 0.25 mg 08/01/16 16:35 Xanax - PO Q8H PRN ANXIETY Aspirin 81 mg 07/30/16 10:00 08/02/16 10:04 Asa - PO 81 mg DAILY [facility] Administration Budesonide/Formoterol Fumarate 2 puff 07/29/16 22:00 08/02/16 10:19 Symbicort 160/4.5mcg - IH 2 puff BID [facility] Administration Dicyclomine HCl 10 mg 07/29/16 15:15 08/01/16 21:28 Bentyl - PO 10 mg Q6H PRN Administration PAIN Enoxaparin Sodium 40 mg 07/30/16 10:00 08/02/16 10:19 Lovenox - SQ 40 mg DAILY [facility] Administration Hydroxyurea 500 mg 08/01/16 10:00 08/01/16 10:56 Hydrea - PO 500 mg MoFr@10 [facility] Administration Pantoprazole Sodium 100 mls @ 200 mls/hr 07/30/16 10:00 08/02/16 10:04 Protonix 40mg Ivpb (Pre-Docked) IVPB 200 mls/hr DAILY [facility] Administration Dextrose/Sodium Chloride 1,000 mls @ 42 mls/hr 08/02/16 13:15 08/02/16 14:10 D5-1/2ns - IV 42 mls/hr ASDIR [facility] Administration Ondansetron HCl 4 mg 07/29/16 14:59 07/30/16 01:10 Zofran Injection IVPB 4 mg Q6H PRN Administration NAUSEA Oxycodone HCl 10 mg 08/02/16 09:24 08/02/16 17:14 Roxicodone - PO 10 mg Q3H PRN Administration SEVERE PAIN Oxycodone HCl 7.5 mg 08/02/16 09:31 Roxicodone - PO Q3H PRN MODERATE PAIN Trazodone HCl 100 mg 07/29/16 22:00 08/01/16 21:28 Desyrel - PO 100 mg HS [facility] Administration Impression: S/P bowel resection MPD GI bleeding Plan: Continue ASA-81 mg Monitor CBC Surical post op care Pulmonary post op care.
[2016-08-02] MEDS: traZODone HCL 50 MG TABLET (FP) PO SCH (21:14)
[2016-08-03 05:23] LABS: URINE APPEARANCE CLEAR; URINE BILIRUBIN NEGATIVE (NEGATIVE); URINE BLOOD NEGATIVE (NEGATIVE); URINE COLOR YELLOW; URINE GLUCOSE (UA) NEGATIVE (NEGATIVE); URINE KETONE TRACE (NEGATIVE); URINE LEUK ESTERASE NEGATIVE (NEGATIVE); URINE NITRITE NEGATIVE (NEGATIVE); URINE UROBILINOGEN NEGATIVE E.U./dl (0.2-1.0)
[2016-08-03 05:25] LABS: URINE PROTEIN 1+ (NEGATIVE)
[2016-08-03 05:30] LABS: URIC ACID CRYSTALS RARE /hpf (NONE SEEN); URINE BACTERIA RARE /hpf (NONE SEEN); URINE HYALINE CAST 1 /lpf; URINE MUCUS RARE; URINE RBC 4 /hpf (0-3)
[2016-08-03] MEDS: ACETAMINOPHEN 325 MG TABLET (FP) PO PRN ×3 (08:21→21:55)
[2016-08-03] MEDS: oxyCODONE HCL 5 MG TABLET PO PRN ×3 (08:24→21:53)
[2016-08-03 08:34] LABS: BASOPHIL 0.7 % (0-2.0); EOSINOPHIL 2.8 % (0-4.5); MCH 30.1 pg (25.7-33.7); MCHC 31.8 g/dl (32.0-36.0); MEAN CELL VOLUME 94.6 fl (80-96); MEAN PLT VOLUME 10.1 fl (7.5-11.1); NEUTROPHILS 88.2 % (42.8-82.8); PLATELET COUNT 355 K/MM3 (134-434); RDW 18.8 % (11.6-15.6); WHITE BLOOD COUNT 12.5 K/mm3 (4.0-10.0)
[2016-08-03 09:14] LABS: ALBUMIN 2.5 g/dl (3.4-5.0); BILIRUBIN,TOTAL 0.4 mg/dL (0.2-1.0); CREATININE 1.5 mg/dL (0.55-1.02); MAGNESIUM 1.9 mg/dL (1.8-2.4); PHOSPHOROUS 2.7 mg/dL (2.5-4.9); TOT PROT 4.8 g/dl (6.4-8.2)
[2016-08-03] MEDS: ASPIRIN 81 MG CHEWABLE TABLETS PO SCH (09:31)
[2016-08-03] MEDS: PANTOPRAZOLE SODIUM 100 ML IVPB SCH (09:34)
[2016-08-03] MEDS: ENOXAPARIN NA (PORCINE) 40 MG/0.4 ML DISP.SYRIN SQ SCH (09:34)
[2016-08-03] MEDS ORDERED: DEXTROSE 5%-0.45% SALINE 1,000 ML IV SCH (10:20)
--- NOTE | 2016-08-03 10:35 | PN ---
Progress Note (short form) - Note Progress Note: Surgery pt seen and examined. still had multiple complaints. no abd pain. no flatus. no bm. incision clean. Laboratory Tests 08/03/16 08/03/16 07:10 07:10 WBC 12.5 H Hgb 7.5 L Sodium 144 Potassium 4.7 BUN 23 H D Creatinine 1.5 H D A/P 1) Pod#5- cont npo, ivf, bennett 2) oxycodone, caldolor 3) prophylaxis- venodyne, protonix, (lovenox per medicine/hematology), oob 4) acute blood loss anemia from likely anastamotic bleed secondary to bleeding disorder- hgb slightly lower but expected. will follow. 5) LBO- follow path. suspect muscular hypertrophy 6) copd, thrombocytosis, per medicine/pulmonary/hematology 7) leukocytosis- doubt abd source, slowly improving. susptect pulmonary source /atelectasis. ua unremarkable. bc negative so far. will get chest pt. 8) open wound- irrigate with saline and cover with dry dressing 9) fever- cxr, ua, venous doppler, bc likley atelectasis. chest pt . oob. 10) dehydration, hypernatremia, rising bun,- will increase ivf back to maintenance. changed yesterday to 1/2 NS
[2016-08-03] MEDS: ACLIDINIUM BROMIDE 400 MCG/INH AERO.POWD IH SCH ×2 (10:36→21:54)
[2016-08-03] MEDS: BUDESONIDE/FORMETEROL FUMARATE 160/4.5 mcg INHALER IH SCH ×2 (10:36→21:51)
[2016-08-03] MEDS: ALPRAZolam 0.25 MG TABLET PO PRN (10:43)
[2016-08-03] MEDS: DEXTROSE 5%-0.45% SALINE 1,000 ML IV SCH ×2 (10:44→14:05)
--- NOTE | 2016-08-03 21:23 | PN ---
Progress Note (short form) - Note Progress Note: PAtient seen and examined No specific complaints Last Vital Signs Temp Pulse Resp BP Pulse Ox 97.3 F L 82 18 145/80 98 08/03/16 14:41 08/03/16 14:41 08/03/16 14:41 08/03/16 09:00 08/03/16 09:00 HEENT: TONEY, EOM Intact Oropharynx: No thrush, No mucositis Cor: RSR, No murmurs, No gallops Lungs: Clear to P&A Abd: Soft,dressing + Abnormal Lab Results 08/03/16 08/03/16 08/03/16 05:00 07:10 07:10 WBC 12.5 H RBC 2.51 L Hgb 7.5 L Hct 23.7 L MCHC 31.8 L RDW 18.8 H Neutrophils % 88.2 H Lymphocytes % 5.2 L Monocytes % 3.1 L Chloride 109 H Anion Gap 7 L BUN 23 H D Creatinine 1.5 H D Calcium 8.0 L AST 14 L Total Protein 4.8 L Albumin 2.5 L Urine Protein 1+ H Urine Ketones Trace H Crossmatch 08/03/16 16:00 WBC RBC Hgb Hct MCHC RDW Neutrophils % Lymphocytes % Monocytes % Chloride Anion Gap BUN Creatinine Calcium AST Total Protein Albumin Urine Protein Urine Ketones Crossmatch See Detail Current Medications Acetaminophen (Tylenol -) 650 mg PO Q4H PRN PRN Reason: FEVER OR PAIN Last Admin: 08/03/16 17:57 Dose: 650 mg Aclidinium [place] (Tudorza -) 1 puff IH BID [facility] Last Admin: 08/03/16 10:36 Dose: 1 puff Albuterol Sulfate (Ventolin Hfa Inhaler -) 2 puff IH Q4H PRN PRN Reason: SHORTNESS OF BREATH Albuterol Sulfate (Ventolin Hfa Inhaler -) 1 puff IH Q4H PRN PRN Reason: SHORTNESS OF BREATH Alprazolam (Xanax -) 0.25 mg PO Q8H PRN PRN Reason: ANXIETY Last Admin: 08/03/16 10:43 Dose: 0.25 mg Aspirin (Asa -) 81 mg PO DAILY [facility] Last Admin: 08/03/16 09:31 Dose: 81 mg Budesonide/Formoterol Fumarate (Symbicort 160/4.5mcg -) 2 puff IH BID [facility] Last Admin: 08/03/16 10:36 Dose: 2 puff Dicyclomine HCl (Bentyl -) 10 mg PO Q6H PRN PRN Reason: PAIN Last Admin: 08/01/16 21:28 Dose: 10 mg Hydroxyurea (Hydrea -) 500 mg PO MoFr@10 [facility] Last Admin: 08/01/16 10:56 Dose: 500 mg Pantoprazole Sodium (Protonix 40mg Ivpb (Pre-Docked)) 100 mls @ 200 mls/hr IVPB DAILY [facility] Last Admin: 08/03/16 09:34 Dose: 200 mls/hr Dextrose/Sodium Chloride (D5-1/2ns -) 1,000 mls @ 65 mls/hr IV ASDIR [facility] Last Admin: 08/03/16 14:05 Dose: 65 mls/hr Ondansetron HCl (Zofran Injection) 4 mg IVPB Q6H PRN PRN Reason: NAUSEA Last Admin: 07/30/16 01:10 Dose: 4 mg Oxycodone HCl (Roxicodone -) 10 mg PO Q3H PRN PRN Reason: SEVERE PAIN Last Admin: 08/03/16 17:51 Dose: 10 mg Oxycodone HCl (Roxicodone -) 7.5 mg PO Q3H PRN PRN Reason: MODERATE PAIN Trazodone HCl (Desyrel -) 100 mg PO HS [facility] Last Admin: 08/02/16 21:14 Dose: 100 mg A/P 66 y/o patient with myeloproliferative disorder, s/p surgery for large bowel obstruction had rectal bleeding which has resolved on ASA Hold LMWH venodynes CBC--platelet count aceptable on hydrea twice weekly monitor
[2016-08-03] MEDS: traZODone HCL 50 MG TABLET (FP) PO SCH (21:51)
[2016-08-04] MEDS: oxyCODONE HCL 5 MG TABLET PO PRN ×3 (08:00→21:30)
[2016-08-04] MEDS: ACETAMINOPHEN 325 MG TABLET (FP) PO PRN ×3 (08:02→21:30)
[2016-08-04 09:00] LABS: BASOPHIL 0.4 % (0-2.0); EOSINOPHIL 2.6 % (0-4.5); MCH 29.6 pg (25.7-33.7); MCHC 31.5 g/dl (32.0-36.0); MEAN PLT VOLUME 10.1 fl (7.5-11.1); NEUTROPHILS 87.9 % (42.8-82.8); PLATELET COUNT 396 K/MM3 (134-434); RDW 19.4 % (11.6-15.6); WHITE BLOOD COUNT 12.6 K/mm3 (4.0-10.0)
[2016-08-04 09:25] LABS: CALCIUM 8.1 mg/dL (8.5-10.1); CREATININE 1.3 mg/dL (0.55-1.02); MAGNESIUM 1.9 mg/dL (1.8-2.4); PHOSPHOROUS 2.8 mg/dL (2.5-4.9)
[2016-08-04] MEDS: PANTOPRAZOLE SODIUM 100 ML IVPB SCH (09:32)
[2016-08-04] MEDS: ASPIRIN 81 MG CHEWABLE TABLETS PO SCH (09:32)
[2016-08-04] MEDS: ACLIDINIUM BROMIDE 400 MCG/INH AERO.POWD IH SCH ×2 (09:38→21:29)
[2016-08-04] MEDS: BUDESONIDE/FORMETEROL FUMARATE 160/4.5 mcg INHALER IH SCH ×2 (09:38→21:29)
--- NOTE | 2016-08-04 10:08 | PN ---
Progress Note (short form) - Note Progress Note: Surgery pt seen and examined by Dr. Joyner. feels well. abd soft, nt, incision clean. flatus afebrile A/P 1) Pod#6- full liquids, d/c bennett, stop ivf if tolerating 2) oxycodone, caldolor 3) prophylaxis- venodyne, protonix, (lovenox per medicine/hematology), oob 4) acute blood loss anemia from likely anastamotic bleed secondary to bleeding disorder- stable 5) LBO- follow path. suspect muscular hypertrophy 6) copd, thrombocytosis, per medicine/pulmonary/hematology chest pt 7) leukocytosis- doubt abd source, stable. susptect pulmonary source/ atelectasis. ua unremarkable. bc negative so far. will get chest pt. 8) open wound- irrigate with saline and cover with dry dressing 9) fever- cxr, ua, venous doppler, bc likley atelectasis. chest pt . oob. w /u for infection negative so far. remains off abx. 10) dehydration, hypernatremia, rising bun,- should resolve with diet
[2016-08-04] MEDS: ALPRAZolam 0.25 MG TABLET PO PRN (10:47)
--- NOTE | 2016-08-04 12:20 | PN ---
Progress Note (short form) - Note Progress Note: OOB to chair. Reports feeling better overall. Seen by surgery this AM. Will start on oral intake. Afebrile. Minimal abdominal discomfort. Intake & Output 08/01/16 08/02/16 08/03/16 08/04/16 23:59 23:59 23:59 23:59 Intake Total 2400 1000 800 Output Total 900 1150 900 450 Balance 1500 -150 -100 -450 Last Vital Signs Temp Pulse Resp BP Pulse Ox 98.2 F 81 18 150/92 99 08/04/16 09:00 08/04/16 09:00 08/04/16 09:00 08/04/16 09:00 08/04/16 09:00 Active Medications Acetaminophen (Tylenol -) 650 mg PO Q4H PRN PRN Reason: FEVER OR PAIN Last Admin: 08/04/16 08:02 Dose: 650 mg Aclidinium [place] (Tudorza -) 1 puff IH BID [facility] Last Admin: 08/04/16 09:38 Dose: 1 puff Albuterol Sulfate (Ventolin Hfa Inhaler -) 2 puff IH Q4H PRN PRN Reason: SHORTNESS OF BREATH Albuterol Sulfate (Ventolin Hfa Inhaler -) 1 puff IH Q4H PRN PRN Reason: SHORTNESS OF BREATH Alprazolam (Xanax -) 0.25 mg PO Q8H PRN PRN Reason: ANXIETY Last Admin: 08/04/16 10:47 Dose: 0.25 mg Aspirin (Asa -) 81 mg PO DAILY [facility] Last Admin: 08/04/16 09:32 Dose: 81 mg Budesonide/Formoterol Fumarate (Symbicort 160/4.5mcg -) 2 puff IH BID [facility] [place] Last Admin: 08/04/16 09:38 Dose: 2 puff Dicyclomine HCl (Bentyl -) 10 mg PO Q6H PRN PRN Reason: PAIN Last Admin: 08/01/16 21:28 Dose: 10 mg Hydroxyurea (Hydrea -) 500 mg PO MoFr@10 [facility] Last Admin: 08/01/16 10:56 Dose: 500 mg Pantoprazole Sodium (Protonix 40mg Ivpb (Pre-Docked)) 100 mls @ 200 mls/hr IVPB DAILY [facility] [place] Last Admin: 08/04/16 09:32 Dose: 200 mls/hr Dextrose/Sodium Chloride (D5-1/2ns -) 1,000 mls @ 65 mls/hr IV ASDIR [facility] Last Admin: 08/03/16 14:05 Dose: 65 mls/hr Ondansetron HCl (Zofran Injection) 4 mg IVPB Q6H PRN PRN Reason: NAUSEA Last Admin: 07/30/16 01:10 Dose: 4 mg Oxycodone HCl (Roxicodone -) 10 mg PO Q3H PRN PRN Reason: SEVERE PAIN Last Admin: 08/04/16 08:00 Dose: 10 mg Oxycodone HCl (Roxicodone -) 7.5 mg PO Q3H PRN PRN Reason: MODERATE PAIN Trazodone HCl (Desyrel -) 100 mg PO [facility] Last Admin: 08/03/16 21:51 Dose: 100 mg Constitutional: Yes: NAD Eyes: Yes: WNL HENT: Yes: WNL Neck: Yes: WNL Cardiovascular: Yes: Regular Rate and Rhythm, S1, S2 Respiratory: Yes: Decreased BS at the bases with rhonchi Gastrointestinal: Yes: Soft, (+) BS Extremities: Yes: WNL Edema: No Labs: Laboratory Results - last 24 hr 08/03/16 08/04/16 08/04/16 16:00 07:50 07:50 WBC 12.6 H RBC 2.85 L Hgb 8.4 L D Hct 26.8 L MCV 94.0 MCHC 31.5 L RDW 19.4 H Plt Count 396 MPV 10.1 Neutrophils % 87.9 H Lymphocytes % 6.5 L D Monocytes % 2.6 L Eosinophils % 2.6 Basophils % 0.4 Sodium 144 Potassium 4.7 Chloride 108 H Carbon Dioxide 29 Anion Gap 7 L BUN 19 H Creatinine 1.3 H Random Glucose 94 Calcium 8.1 L Phosphorus 2.8 Magnesium 1.9 Blood Type A POSITIVE Antibody Screen Negative Crossmatch See Detail Problem List - Problems (1) Bronchitis Code(s): J40 - BRONCHITIS, NOT SPECIFIED ACUTE OR CHRONIC (2) IBS (irritable bowel syndrome) Code(s): K58.9 - IRRITABLE BOWEL SYNDROME WITHOUT DIARRHEA Qualifiers: Qualified Code(s): K58.9 - Irritable bowel syndrome without diarrhea (3) Stricture of sigmoid colon Code(s): K56.69 - OTHER INTESTINAL OBSTRUCTION (4) Anemia Code(s): D64.9 - ANEMIA, UNSPECIFIED (5) COPD (chronic obstructive pulmonary disease) Code(s): J44.9 - CHRONIC OBSTRUCTIVE PULMONARY DISEASE, UNSPECIFIED Qualifiers : COPD type: COPD with acute exacerbation Qualified Code(s): J44.1 - Chronic obstructive pulmonary disease with (acute) exacerbation (6) Diverticulosis Code(s): K57.90 - DVRTCLOS OF INTEST, PART UNSP, W/O PERF OR ABSCESS W/O BLEED (7) Myeloproliferative disorder Code(s): D47.1 - CHRONIC MYELOPROLIFERATIVE DISEASE Assessment/Plan IMP: SEVERE SIGMOID STRICTURE, S/P LOW ANTERIOR RESECTION RECTAL BLEEDING ESSENTIAL THROMBOCYTHEMIA/MDS LEFT ADRENALECTOMY (BENIGN) COPD (FORMER SMOKER) PLAN: PO TOLERATED IF INTAKE IS ADEQUATE BY TOMORROW -> MINIMIZE IVF ANALGESICS INCENTIVE SPIROMETER INHALED BRONCHODILATORS TRANSFUSE PRN MONITOR H+H,SOULEYMANE BAILEY
[2016-08-04] MEDS: DEXTROSE 5%-0.45% SALINE 1,000 ML IV SCH (14:20)
[2016-08-04] MEDS: traZODone HCL 50 MG TABLET (FP) PO SCH (21:29)
[2016-08-05] MEDS: DEXTROSE 5%-0.45% SALINE 1,000 ML IV SCH (05:48)
[2016-08-05] MEDS: ACETAMINOPHEN 325 MG TABLET (FP) PO PRN ×2 (09:12→14:46)
[2016-08-05] MEDS: oxyCODONE HCL 5 MG TABLET PO PRN ×2 (09:13→14:45)
[2016-08-05] MEDS: PANTOPRAZOLE SODIUM 100 ML IVPB SCH (09:13)
[2016-08-05] MEDS: ASPIRIN 81 MG CHEWABLE TABLETS PO SCH (09:14)
[2016-08-05] MEDS: HYDROXYUREA 500 MG CAPSULE PO SCH (09:19)
[2016-08-05] MEDS ORDERED: PT OWN MED DRAWER 7, Y5N ONE ×2 (09:19→23:09)
[2016-08-05] MEDS: BUDESONIDE/FORMETEROL FUMARATE 160/4.5 mcg INHALER IH SCH ×2 (09:19→22:53)
[2016-08-05] MEDS: ACLIDINIUM BROMIDE 400 MCG/INH AERO.POWD IH SCH ×3 (09:20→22:53)
--- NOTE | 2016-08-05 11:36 | PN ---
Progress Note (short form) - Note Progress Note: Surgery pt seen and examined by Dr. Joyner. feels well. tolerating liquids. no complains. improved distension. nt. incision clean afebrile labs pending A/P 1) Pod#7- full liquids, may advance to regular tomorrow with poss d/c. f/u with Dr Joyner in about 2week to be evaluated for staple removal. 2) oxycodone, caldolor 3) prophylaxis- venodyne, protonix, (lovenox per medicine/hematology), oob 4) acute blood loss anemia from likely anastamotic bleed secondary to bleeding disorder- stable 5) LBO- follow path. suspect muscular hypertrophy 6) copd, thrombocytosis, per medicine/pulmonary/hematology chest pt 7) leukocytosis- doubt abd source, stable. susptect pulmonary source/ atelectasis. ua unremarkable. bc negative so far. follow cbc today 8) open wound- dry dressing 9) fever- resolved. cxr, ua, venous doppler, bc likley atelectasis. chest pt . oob. w/u for infection negative so far. remains off abx. 10) dehydration, hypernatremia, rising bun,- should resolve with diet
[2016-08-05 12:25] LABS: BASOPHIL 0.9 % (0-2.0); EOSINOPHIL 2.6 % (0-4.5); MCH 29.9 pg (25.7-33.7); MCHC 31.7 g/dl (32.0-36.0); MEAN CELL VOLUME 94.3 fl (80-96); MEAN PLT VOLUME 9.7 fl (7.5-11.1); NEUTROPHILS 88.4 % (42.8-82.8); PLATELET COUNT 404 K/MM3 (134-434); RDW 19.1 % (11.6-15.6); WHITE BLOOD COUNT 14.7 K/mm3 (4.0-10.0)
[2016-08-05 13:05] LABS: CREATININE 1.4 mg/dL (0.55-1.02); MAGNESIUM 1.7 mg/dL (1.8-2.4); PHOSPHOROUS 2.3 mg/dL (2.5-4.9)
--- NOTE | 2016-08-05 15:44 | PN ---
Progress Note (short form) - Note Progress Note: MEDICAL ATTENDING AMBULATING TOLERATING LIQUIDS VSS ANICTERIC CHEST CLEAR S1S2 BS+ DISTENDED RLQ TENDERNESS NO REBOUND OR GUARDING NO EDEMA LABS/MEDS/NOTES/IMAGING/CONSULTATIONS REVIEWED IMP: STABLE POST-OP ESSENTIAL THROMBOCYTHEMIA/MDS LEFT ADRENALECTOMY (BENIGN) COPD (FORMER SMOKER) PLAN CONTINUE CURRENT POST-OP PLAN DIET TO BE ADVANCED TOLERATED Sandeep LYNN MD
[2016-08-05] MEDS: MAGNESIUM CL 64 MG TABLET.SA PO SCH (18:21)
[2016-08-05] MEDS: ALPRAZolam 0.25 MG TABLET PO PRN (18:21)
--- NOTE | 2016-08-05 18:45 | PN ---
Progress Note (short form) - Note Progress Note: PAtient seen and examined 08/04 and 08/05/16 No specific complaints on liquid diet passing flatus Last Vital Signs Temp Pulse Resp BP Pulse Ox 98.7 F 65 18 113/67 96 08/05/16 15:27 08/05/16 15:27 08/05/16 15:27 08/05/16 05:51 08/04/16 20:26 HEENT: TONEY, EOM Intact Oropharynx: No thrush, No mucositis Cor: RSR, No murmurs, No gallops Lungs: Clear to P&A Abd: Soft,dressing + ext---2+ edema Abnormal Lab Results 08/05/16 08/05/16 11:59 11:59 WBC 14.7 H RBC 2.97 L Hgb 8.9 L Hct 28.0 L MCHC 31.7 L RDW 19.1 H Neutrophils % 88.4 H Lymphocytes % 5.4 L Monocytes % 2.7 L Anion Gap 6 L BUN 21 H Creatinine 1.4 H Calcium 8.0 L Phosphorus 2.3 L Magnesium 1.7 L Current Medications Acetaminophen (Tylenol -) 650 mg PO Q4H PRN PRN Reason: FEVER OR PAIN Last Admin: 08/05/16 14:46 Dose: 650 mg Aclidinium [place] (Tudorza -) 1 puff IH BID [facility] Last Admin: 08/05/16 09:27 Dose: Not Given Albuterol Sulfate (Ventolin Hfa Inhaler -) 2 puff IH Q4H PRN PRN Reason: SHORTNESS OF BREATH Albuterol Sulfate (Ventolin Hfa Inhaler -) 1 puff IH Q4H PRN PRN Reason: SHORTNESS OF BREATH Alprazolam (Xanax -) 0.25 mg PO Q8H PRN PRN Reason: ANXIETY Last Admin: 08/05/16 18:21 Dose: 0.25 mg Aspirin (Asa -) 81 mg PO DAILY [facility] Last Admin: 08/05/16 09:14 Dose: 81 mg Budesonide/Formoterol Fumarate (Symbicort 160/4.5mcg -) 2 puff IH BID [facility] Last Admin: 08/05/16 09:19 Dose: 2 puff Dicyclomine HCl (Bentyl -) 10 mg PO Q6H PRN PRN Reason: PAIN Last Admin: 08/01/16 21:28 Dose: 10 mg Hydroxyurea (Hydrea -) 500 mg PO MoFr@10 [facility] Last Admin: 08/05/16 09:19 Dose: 500 mg Pantoprazole Sodium (Protonix 40mg Ivpb (Pre-Docked)) 100 mls @ 200 mls/hr IVPB DAILY [facility] Last Admin: 08/05/16 09:13 Dose: 200 mls/hr Magnesium Chloride (Slow-Mag -) 64 mg PO DAILY [facility] Last Admin: 08/05/16 18:21 Dose: 64 mg Ondansetron HCl (Zofran Injection) 4 mg IVPB Q6H PRN PRN Reason: NAUSEA Last Admin: 07/30/16 01:10 Dose: 4 mg Oxycodone HCl (Roxicodone -) 10 mg PO Q3H PRN Last Admin: 08/05/16 14:45 Dose: 10 mg Trazodone HCl (Desyrel -) 100 mg PO HS [facility] Last Admin: 08/04/16 21:29 Dose: 100 mg A/P 66 y/o patient with myeloproliferative disorder, s/p surgery for large bowel obstruction had rectal bleeding which has resolved on ASA Hold LMWH venodynes CBC--platelet count aceptable on hydrea twice weekly check duplex
[2016-08-05] MEDS: traZODone HCL 50 MG TABLET (FP) PO SCH (22:52)
[2016-08-06] MEDS: oxyCODONE HCL 5 MG TABLET PO PRN ×2 (07:41→19:51)
[2016-08-06] MEDS: ACETAMINOPHEN 325 MG TABLET (FP) PO PRN ×2 (07:43→19:51)
[2016-08-06 08:37] LABS: BASOPHIL 0.5 % (0-2.0); EOSINOPHIL 2.7 % (0-4.5); MCH 29.7 pg (25.7-33.7); MCHC 31.5 g/dl (32.0-36.0); MEAN CELL VOLUME 94.2 fl (80-96); NEUTROPHILS 88.3 % (42.8-82.8); PLATELET COUNT 392 K/MM3 (134-434); RDW 19.3 % (11.6-15.6); WHITE BLOOD COUNT 13.9 K/mm3 (4.0-10.0)
[2016-08-06] MEDS: PANTOPRAZOLE SODIUM 100 ML IVPB SCH (10:09)
[2016-08-06] MEDS: BUDESONIDE/FORMETEROL FUMARATE 160/4.5 mcg INHALER IH SCH ×2 (10:09→22:35)
[2016-08-06] MEDS: ASPIRIN 81 MG CHEWABLE TABLETS PO SCH (10:10)
[2016-08-06] MEDS: ACLIDINIUM BROMIDE 400 MCG/INH AERO.POWD IH SCH ×2 (10:10→22:35)
[2016-08-06] MEDS: MAGNESIUM CL 64 MG TABLET.SA PO SCH (10:12)
--- NOTE | 2016-08-06 12:50 | PN ---
Progress Note (short form) - Note Progress Note: Seen in follow up. No events overnight. Eating a liquid diet. Complains of muscular type neck pain - difficult to fully extend. Meds reviewed. Current Medications Generic Name Dose Route Start Last Admin Trade Name Freq PRN Reason Stop Dose Admin Acetaminophen 650 mg 07/29/16 14:59 08/06/16 07:43 Tylenol - PO 650 mg Q4H PRN Administration FEVER OR PAIN Aclidinium [place] 1 puff 07/29/16 22:00 08/06/16 10:10 Tudorza - IH 1 puff BID [facility] Administration Albuterol Sulfate 2 puff 07/29/16 14:59 Ventolin Hfa Inhaler - IH Q4H PRN SHORTNESS OF BREATH Albuterol Sulfate 1 puff 07/29/16 14:59 Ventolin Hfa Inhaler - IH Q4H PRN SHORTNESS OF BREATH Alprazolam 0.25 mg 08/05/16 14:24 08/05/16 18:21 Xanax - PO 0.25 mg Q8H PRN Administration ANXIETY Aspirin 81 mg 07/30/16 10:00 08/06/16 10:10 Asa - PO 81 mg DAILY [facility] Administration Budesonide/Formoterol Fumarate 2 puff 07/29/16 22:00 08/06/16 10:09 Symbicort 160/4.5mcg - IH 2 puff BID [facility] Administration Dicyclomine HCl 10 mg 07/29/16 15:15 08/01/16 21:28 Bentyl - PO 10 mg Q6H PRN Administration PAIN Hydroxyurea 500 mg 08/01/16 10:00 08/05/16 09:19 Hydrea - PO 500 mg MoFr@10 [facility] Administration Pantoprazole Sodium 100 mls @ 200 mls/hr 07/30/16 10:00 08/06/16 10:09 Protonix 40mg Ivpb (Pre-Docked) IVPB 200 mls/hr DAILY [facility] Administration Magnesium Chloride 64 mg 08/05/16 18:00 08/06/16 10:12 Slow-Mag - PO 64 mg DAILY [facility] Administration Ondansetron HCl 4 mg 07/29/16 14:59 07/30/16 01:10 Zofran Injection IVPB 4 mg Q6H PRN Administration NAUSEA Oxycodone HCl 10 mg 08/05/16 14:25 08/06/16 07:41 Roxicodone - PO 10 mg Q3H PRN Administration Trazodone HCl 100 mg 07/29/16 22:00 08/05/16 22:52 Desyrel - PO 100 mg HS [facility] Administration On exam: Last Vital Signs Temp Pulse Resp BP Pulse Ox 97.4 F L 70 12 139/74 96 08/06/16 06:00 08/06/16 06:00 08/06/16 06:00 08/06/16 06:00 08/05/16 21:00 Looks comfortable. Well hydrated. Not icteric. Chest: no respiratory distress. Neuro: Alert and oriented, non-focal. Musculoskeletal: neck flexed. Skin: no rash Ext: no swelling. CBC, BMP 08/06/16 06:15 08/05/16 11:59 Assessment: Known MPN (ET), with counts well-controlled at this time, minimal dose HU, not on anagrelide. On ASA. S/p surgery POD-8 low anterior resection, for colon stricture/ bowel obstruction - advancing diet. Not on pharmacological DVT prophylaxis - ?held for suspicion of bleeding from anastamosis. Recommend surgery re-evaluate, and LMWH prophylaxis be instituted if deemed safe. Leukocytosis noted, reactive, but may be exaggerated in setting of MPN. Warrants ongoing observation.
[2016-08-06] MEDS: ALPRAZolam 0.25 MG TABLET PO PRN (14:21)
[2016-08-06] MEDS ORDERED: MAGNESIUM OXIDE 400 MG TABLET (FP) PO ONE (15:05)
--- NOTE | 2016-08-06 15:16 | PN ---
Progress Note (short form) - Note Progress Note: MEDICAL ATTENDING AMBULATING TOLERATING LIQUIDS VSS ANICTERIC CHEST CLEAR S1S2 BS+ DISTENDED RLQ TENDERNESS NO REBOUND OR GUARDING NO EDEMA LABS/MEDS/NOTES/IMAGING/CONSULTATIONS REVIEWED IMP: STABLE POST-OP ESSENTIAL THROMBOCYTHEMIA/MDS LEFT ADRENALECTOMY (BENIGN) COPD (FORMER SMOKER) PLAN CONTINUE CURRENT POST-OP PLAN DIET TO BE ADVANCED TOLERATED MAGNESIUM TO BE REPLETED REHAB EVAL ORDERED FOR NECK PAIN Sandeep LYNN MD
[2016-08-06] MEDS ORDERED: PT OWN MED DRAWER 7, Y5N ONE (17:16)
[2016-08-06] MEDS: traZODone HCL 50 MG TABLET (FP) PO SCH (22:30)
[2016-08-07] MEDS: ALPRAZolam 0.25 MG TABLET PO PRN ×2 (06:29→15:09)
[2016-08-07] MEDS: ACETAMINOPHEN 325 MG TABLET (FP) PO PRN ×2 (08:48→18:55)
[2016-08-07] MEDS: oxyCODONE HCL 5 MG TABLET PO PRN ×2 (08:50→18:56)
[2016-08-07] MEDS ORDERED: PT OWN MED DRAWER 7, Y5N ONE ×2 (09:38→21:36)
[2016-08-07] MEDS: BUDESONIDE/FORMETEROL FUMARATE 160/4.5 mcg INHALER IH SCH ×2 (09:39→21:41)
[2016-08-07] MEDS: ASPIRIN 81 MG CHEWABLE TABLETS PO SCH (09:40)
[2016-08-07] MEDS: MAGNESIUM CL 64 MG TABLET.SA PO SCH (09:40)
[2016-08-07] MEDS: PANTOPRAZOLE SODIUM 100 ML IVPB SCH (09:40)
[2016-08-07] MEDS: ACLIDINIUM BROMIDE 400 MCG/INH AERO.POWD IH SCH ×2 (09:40→21:42)
--- NOTE | 2016-08-07 10:56 | PN ---
Progress Note (short form) - Note Progress Note: MEDICAL ATTENDING AMBULATING TOLERATING LIQUIDS VSS ANICTERIC/NECK STIFFNESS CHEST CLEAR/DISTANT S1S2 BS+ DISTENDED NO REBOUND OR GUARDING NO EDEMA LABS/MEDS/NOTES/IMAGING/CONSULTATIONS REVIEWED IMP: STABLE POST-OP ESSENTIAL THROMBOCYTHEMIA/MDS LEFT ADRENALECTOMY (BENIGN) COPD (FORMER SMOKER) ?AQUIRED TORTICOLLIS PLAN CONTINUE CURRENT POST-OP PLAN DIET TO BE ADVANCED TOLERATED MAGNESIUM TO BE REPLETED REHAB EVAL/PT ORDERED FOR NECK PAIN Sandeep LYNN MD
--- NOTE | 2016-08-07 15:15 | PN ---
Progress Note (short form) - Note Progress Note: Seen in follow up. No events overnight. Diet advanced. Ongoing muscular type neck pain - difficult to fully extend. Meds reviewed. Current Medications Generic Name Dose Route Start Last Admin Trade Name Freq PRN Reason Stop Dose Admin Acetaminophen 650 mg 07/29/16 14:59 08/07/16 08:48 Tylenol - PO 650 mg Q4H PRN Administration FEVER OR PAIN Aclidinium [place] 1 puff 07/29/16 22:00 08/07/16 09:40 Tudorza - IH Not Given BID [facility] Albuterol Sulfate 2 puff 07/29/16 14:59 Ventolin Hfa Inhaler - IH Q4H PRN SHORTNESS OF BREATH Albuterol Sulfate 1 puff 07/29/16 14:59 Ventolin Hfa Inhaler - IH Q4H PRN SHORTNESS OF BREATH Alprazolam 0.25 mg 08/05/16 14:24 08/07/16 06:29 Xanax - PO 0.25 mg Q8H PRN Administration ANXIETY Aspirin 81 mg 07/30/16 10:00 08/07/16 09:40 Asa - PO 81 mg DAILY [facility] Administration Budesonide/Formoterol Fumarate 2 puff 07/29/16 22:00 08/07/16 09:39 Symbicort 160/4.5mcg - IH 2 puff BID [facility] Administration Dicyclomine HCl 10 mg 07/29/16 15:15 08/01/16 21:28 Bentyl - PO 10 mg Q6H PRN Administration PAIN Hydroxyurea 500 mg 08/01/16 10:00 08/05/16 09:19 Hydrea - PO 500 mg MoFr@10 [facility] Administration Pantoprazole Sodium 100 mls @ 200 mls/hr 07/30/16 10:00 08/07/16 09:40 Protonix 40mg Ivpb (Pre-Docked) IVPB 200 mls/hr DAILY [facility] Administration Magnesium Chloride 64 mg 08/05/16 18:00 08/07/16 09:40 Slow-Mag - PO 64 mg DAILY [facility] Administration Ondansetron HCl 4 mg 07/29/16 14:59 07/30/16 01:10 Zofran Injection IVPB 4 mg Q6H PRN Administration NAUSEA Oxycodone HCl 10 mg 08/05/16 14:25 08/07/16 08:50 Roxicodone - PO 10 mg Q3H PRN Administration Trazodone HCl 100 mg 07/29/16 22:00 08/06/16 22:30 Desyrel - PO 100 mg HS [facility] Administration On exam: Last Vital Signs Temp Pulse Resp BP Pulse Ox 98.2 F 76 18 148/67 91 L 08/07/16 09:07 08/07/16 09:07 08/07/16 09:07 08/07/16 09:07 08/07/16 09:00 Looks comfortable. Well hydrated. Not icteric. Chest: no respiratory distress. Neuro: Alert and oriented, non-focal. Musculoskeletal: neck flexed. Skin: no rash Ext: bilateral lower extremity swelling - ?R>L CBC, BMP 08/06/16 06:15 08/05/16 11:59 Assessment: Known MPN (ET), with counts well-controlled at this time, minimal dose HU, not on anagrelide. On ASA. S/p surgery POD-8 low anterior resection, for colon stricture/ bowel obstruction - advancing diet. Not on pharmacological DVT prophylaxis - ?held for suspicion of bleeding from anastamosis. Recommend surgery re-evaluate, and LMWH prophylaxis be instituted if deemed safe. Noted to have had negative dopplers on 08/02. Low threshold for repeating dopplers. Leukocytosis noted, reactive, but may be exaggerated in setting of MPN. Warrants ongoing observation.
[2016-08-07] MEDS: traZODone HCL 50 MG TABLET (FP) PO SCH (21:42)
[2016-08-08] MEDS: ALPRAZolam 0.25 MG TABLET PO PRN ×2 (01:14→19:08)
[2016-08-08] MEDS: oxyCODONE HCL 5 MG TABLET PO PRN ×2 (07:28→14:25)
[2016-08-08] MEDS: ACETAMINOPHEN 325 MG TABLET (FP) PO PRN ×2 (07:28→14:27)
[2016-08-08 09:11] LABS: MCH 29.4 pg (25.7-33.7); MCHC 31.3 g/dl (32.0-36.0); PLATELET COUNT 443 K/MM3 (134-434); RDW 18.9 % (11.6-15.6); WHITE BLOOD COUNT 16.5 K/mm3 (4.0-10.0)
[2016-08-08] MEDS ORDERED: SODIUM PHOSPHATE/NA BIPHOS 133 ML ENEMA RC ONE (10:00)
[2016-08-08] MEDS ORDERED: PT OWN MED DRAWER 7, Y5N ONE ×3 (10:06→22:12)
[2016-08-08] MEDS: ASPIRIN 81 MG CHEWABLE TABLETS PO SCH (10:15)
[2016-08-08] MEDS: BUDESONIDE/FORMETEROL FUMARATE 160/4.5 mcg INHALER IH SCH ×2 (10:15→22:09)
[2016-08-08] MEDS: PANTOPRAZOLE 40 MG TABLET (FP) PO SCH (10:15)
[2016-08-08] MEDS: MAGNESIUM CL 64 MG TABLET.SA PO SCH (10:17)
[2016-08-08] MEDS: HYDROXYUREA 500 MG CAPSULE PO SCH (10:17)
[2016-08-08] MEDS: ACLIDINIUM BROMIDE 400 MCG/INH AERO.POWD IH SCH ×2 (10:18→22:10)
--- NOTE | 2016-08-08 13:10 | PN ---
Progress Note (short form) - Note Progress Note: PULMONARY/MED +Flatus but no BM. No nausea, vomiting. Pain controlled. Last Vital Signs Temp Pulse Resp BP Pulse Ox 98.0 F 72 14 139/77 93 L 08/08/16 06:00 08/08/16 06:00 08/08/16 06:00 08/08/16 06:00 08/07/16 21:00 Gen: NAD at rest Heart: RRR Lung: decreased breath sounds at the bases Abd: incision clean, nontender, +BS Ext: + edema CBC, BMP 08/08/16 07:00 08/05/16 11:59 Active Medications Acetaminophen (Tylenol -) 650 mg PO Q4H PRN PRN Reason: FEVER OR PAIN Last Admin: 08/08/16 07:28 Dose: 650 mg Aclidinium [place] (Tudorza -) 1 puff IH BID [facility] Last Admin: 08/08/16 10:18 Dose: 1 puff Albuterol Sulfate (Ventolin Hfa Inhaler -) 2 puff IH Q4H PRN PRN Reason: SHORTNESS OF BREATH Albuterol Sulfate (Ventolin Hfa Inhaler -) 1 puff IH Q4H PRN PRN Reason: SHORTNESS OF BREATH Alprazolam (Xanax -) 0.25 mg PO Q8H PRN PRN Reason: ANXIETY Last Admin: 08/08/16 01:14 Dose: 0.25 mg Aspirin (Asa -) 81 mg PO DAILY [facility] Last Admin: 08/08/16 10:15 Dose: 81 mg Budesonide/Formoterol Fumarate (Symbicort 160/4.5mcg -) 2 puff IH BID [facility] Last Admin: 08/08/16 10:15 Dose: 2 puff Dicyclomine HCl (Bentyl -) 10 mg PO Q6H PRN PRN Reason: PAIN Last Admin: 08/01/16 21:28 Dose: 10 mg Hydroxyurea (Hydrea -) 500 mg PO MoFr@10 [facility] Last Admin: 08/08/16 10:17 Dose: 500 mg Magnesium Chloride (Slow-Mag -) 64 mg PO DAILY [facility] Last Admin: 08/08/16 10:17 Dose: 64 mg Ondansetron HCl (Zofran Injection) 4 mg IVPB Q6H PRN PRN Reason: NAUSEA Last Admin: 07/30/16 01:10 Dose: 4 mg Oxycodone HCl (Roxicodone -) 10 mg PO Q3H PRN Last Admin: 08/08/16 07:28 Dose: 10 mg Pantoprazole Sodium (Protonix -) 40 mg PO DAILY [facility] Last Admin: 08/08/16 10:15 Dose: 40 mg Trazodone HCl (Desyrel -) 100 mg PO HS [facility] Last Admin: 08/07/16 21:42 Dose: 100 mg A/P Sigmoid Stricture/LBO s/p ex-lap/LAR 07/29/16 MPD COPD CKD - PO as tolerated - pain control - incentive spirometry - monitor WBC - inhaled bronchodilators - DVT prophylaxis
--- NOTE | 2016-08-08 13:44 | CONSULT ---
Consult Consult Specialty:: PM&R Reason for Consultation:: neck pain - History of Present Illness Chief Complaint: 03/07 L neck pain History of Present Illness: This is a 66 year old woman with a medical history of anxiety, COPD, diverticulosis with adhesions and chronic abdominal pain, MDS/ essential thrombocytopenia, who presented to the ED 07/25/16 with intermittent abdominal pain x1 month and constipation. She was diagnosed with sigmoid stricture, and on 07/29/16 she underwent resection of the rectosigmoid and L colon. She reports she spent the next 2 days in bed, then when she got up 08/01/16 noticed that she had developed L neck stiffness, up to 03/07. Pain does not radiate, is improved with neck support, and worse with neck movement. She denies BUE/ BLE numbness, paresthesias, or weakness, and denies bowel or bladder incontinence s/p surgery. Heat and massage both helped her neck pain a little. She was seen by PT , and on 08/07/16 she was Supervision in Transfers, ambulated 50ft Contact Guard with hand- hold assist, and received massage L neck. Physiatry is being consulted for further recommendations. - Past Medical History Cardio/Vascular: Yes: HTN. No: AFIB, Aneurysm, Aortic Insufficiency, Aortic Stenosis, CAD, CHF, Deep Vein Thrombosis, Hyperlipdemia, [place], Mitral Insufficiency, Mitral Stenosis, Murmur, Pulmonary Hypertension, Other Pulmonary: Yes: COPD. No: Asthma, Bronchitis, Cancer, O2 Dependent, Pneumonia, Previously Intubated, Pulmonary Embolus, Pulmonary Fibrosis, Sleep Apnea, Other Gastrointestinal: Yes: Constipation, Other (ADRENAL ADENOMA, SEVERE DIVERTICULOSIS AND DIVERTICULITIS) Hepatobiliary: Yes: Other (HAD WORKUP FOR PORTAL HTN WHICH WAS NEGATIVE ( INCLUDED PORTAL PRESSURE MEASUREMENTS)) Renal/: Yes: Renal Inusuff ...: No Psych: Yes: Anxiety. No: Addictions, Bipolar, Depression, Panic, Psychosis, Schizophrenia, Other - Past Surgical History Past Surgical History: Yes: Colonoscopy, Upper Endoscopy - Alcohol/Substance Use Hx Alcohol Use: No History of Substance Use: reports: None - Smoking History Smoking history: Former smoker Have you smoked in the past 12 months: No Aproximately how many cigarettes per day: 1 If you are a former smoker, when did you quit?: 2005 - Social History Usual Living Arrangement: Alone (lives alone in house with 2 steps to enter and 12 inside; previously Independent in ADLs without AD) ADL: Independent History of Recent Travel: No Home Medications - Allergies Allergies/Adverse Reactions: Allergies Allergy/AdvReac Type Severity Reaction Status Date / Time Sulfa (Sulfonamide Allergy Verified 07/25/16 13:20 Antibiotics) - Home Medications Home Medications: Ambulatory Orders Albuterol Sulfate [Proair Hfa -] 1 - 2 inh PO PRN PRN 01/28/14 Trazodone HCl [Desyrel -] 100 mg PO HS 01/28/14 Aspirin [ASA -] 81 mg PO DAILY 10/30/15 Hydroxyurea [Hydrea] 500 mg PO ASDIR #30 11/03/15 Budesonide/Formeterol Fumarate [SYMBICORT 160/4.5mcg -] 1 inh PO DAILY 07/01/16 Tiotropium [place] [Spiriva] 1 inh PO DAILY 07/01/16 Alprazolam [Xanax] 0.25 mg PO Q8H PRN 07/21/16 Anagrelide HCl [Agrylin] 1 mg PO TID 07/21/16 Dicyclomine HCl [Bentyl -] 10 mg PO Q6H PRN 07/25/16 Polyethylene Glycol 3350 [Miralax (For Daily Use) -] 17 gm PO HS 07/25/16 Family Disease History - Family Disease History Family History: Unremarkable Review of Systems Findings/Remarks: denies fevers, chills, changes in vision/ hearing/ mood, CP, SOB, nausea, vomiting, diarrhea, dysuria, bowel/ bladder incontinence, or weakness/ numbness / paresthesias x4 extremities. She notes neck pain as per HPI without other muscle/ joint pain. Physical Exam Vital Signs: Vital Signs Temperature 98.0 F 08/08/16 09:00 Pulse Rate 94 H 08/08/16 09:00 Respiratory Rate 18 08/08/16 09:00 Blood Pressure 109/62 08/08/16 09:00 O2 Sat by Pulse Oximetry (%) 94 L 08/08/16 13:24 Musculoskeletal: Yes: Other (General: calm elderly F sitting in chair NAD, neck held as though with R torticollis; pain with neck extension to neutral , relieved by neck flexion, with R neck rotation to 45 degrees and L neck rotation to 25 degrees N/M: CN II- XII grossly Intact; full BUE ROM without pain , 5/5 BUE; Pinprick Intact BUE, diffusely hyporeflexic BUE, negative B Palacios' s sign Extremities: no BLE pitting edema, no B calf tenderness, +tenderness along L neck into upper back along levator scapula) Labs: CBC, BMP 08/08/16 07:00 08/05/16 11:59 Imaging - Results Ultrasound: Report Reviewed (08/02/16 BLE doppler US negative for DVT) Assessment/Plan Impression: 1) Deficits mobility/ ADLs 2) Deconditioning 3) L neck pain likely levator scapula 4) Sigmoid colon stricture s/p 07/29/16 rectosigmoid and L colon resection 5) Anemia 6) Elevated renal function 7) hx anxiety 8) hx COPD 9) hx diverticulosis with adhesions 10) MDS/ essential thrombocytopenia 11) BMI WNL Recommendations: 1) PT for bed mobility transfers balance ambulation stairs 2) Falls, safety precautions 3) Pulmonary precautions 4) L neck heat/ ice/ US/ TENS/ stretching/ ROM/ massage, flexion- based exercises 5) Consider neck XR if pain persists although currently not concerning for radicular sx 6) May benefit from cortisone trigger point injections if cleared by Surgery, although pain is more diffuse without specific trigger points noted on exam 7) DVT ppx: as per Surgery 8) Bowel regimen as per Surgery 9) Skin protection: float heels, frequent turning 10) Discharge planning: patient prefers to return home without services as she has a friend who can assist her at home if needed, although she would benefit from home care Thank you for this referral. Will f/u later in week.
--- NOTE | 2016-08-08 14:24 | PN ---
Progress Note (short form) - Note Progress Note: Surgery pt seen and examined. on regular diet. still flatus. no bm. moderate distension afebrile Laboratory Tests 08/08/ 07:00 WBC 16.5 H A/P 1) Pod#10- regular diet. refusing enema. trying prune juice. elevated wbc is actually her norm. will discuss with hematology, but it this is felt to be elevated would repeat ct. f/u with Dr Joyner in about 2week to be evaluated for staple removal. 2) oxycodone, caldolor 3) prophylaxis- venodyne, protonix, (lovenox per medicine/hematology), oob 4) acute blood loss anemia from likely anastamotic bleed secondary to bleeding disorder- stable 5) LBO- follow path. suspect muscular hypertrophy 6) copd, thrombocytosis, per medicine/pulmonary/hematology chest pt 7) leukocytosis- [place] secondary to chronic disease. elevated counts in the past. only one count this admission was normal. will confirm with hematology. 8) open wound- dry dressing 9) fever- resolved. cxr, ua, venous doppler, bc brandyley atelectasis. chest pt . oob. w/u for infection negative so far. remains off abx. 10) dehydration, hypernatremia, rising bun,- should resolve with diet
--- NOTE | 2016-08-08 17:35 | PN ---
Progress Note (short form) - Note Progress Note: PAtient seen and examined 08/04 and 08/05/16 No specific complaints on liquid diet passing flatus Last Vital Signs Temp Pulse Resp BP Pulse Ox 98.2 F 82 20 132/71 94 L 08/08/16 14:00 08/08/16 14:00 08/08/16 14:00 08/08/16 14:00 08/08/16 13:24 HEENT: TONEY, EOM Intact Oropharynx: No thrush, No mucositis Cor: RSR, No murmurs, No gallops Lungs: Clear to P&A Abd: Soft,dressing + ext---2+ edema Abnormal Lab Results 08/08/16 07:00 WBC 16.5 H RBC 2.99 L Hgb 8.8 L Hct 28.1 L MCHC 31.3 L RDW 18.9 H Plt Count 443 H Current Medications Acetaminophen (Tylenol -) 650 mg PO Q4H PRN PRN Reason: FEVER OR PAIN Last Admin: 08/08/16 14:27 Dose: 650 mg Aclidinium [place] (Tudorza -) 1 puff IH BID [facility] Last Admin: 08/08/16 10:18 Dose: 1 puff Albuterol Sulfate (Ventolin Hfa Inhaler -) 2 puff IH Q4H PRN PRN Reason: SHORTNESS OF BREATH Albuterol Sulfate (Ventolin Hfa Inhaler -) 1 puff IH Q4H PRN PRN Reason: SHORTNESS OF BREATH Alprazolam (Xanax -) 0.25 mg PO Q8H PRN PRN Reason: ANXIETY Last Admin: 08/08/16 01:14 Dose: 0.25 mg Aspirin (Asa -) 81 mg PO DAILY [facility] Last Admin: 08/08/16 10:15 Dose: 81 mg Budesonide/Formoterol Fumarate (Symbicort 160/4.5mcg -) 2 puff IH BID [facility] Last Admin: 08/08/16 10:15 Dose: 2 puff Dicyclomine HCl (Bentyl -) 10 mg PO Q6H PRN PRN Reason: PAIN Last Admin: 08/01/16 21:28 Dose: 10 mg Hydroxyurea (Hydrea -) 500 mg PO MoFr@10 [facility] Last Admin: 08/08/16 10:17 Dose: 500 mg Magnesium Chloride (Slow-Mag -) 64 mg PO DAILY [facility] Last Admin: 08/08/16 10:17 Dose: 64 mg Ondansetron HCl (Zofran Injection) 4 mg IVPB Q6H PRN PRN Reason: NAUSEA Last Admin: 07/30/16 01:10 Dose: 4 mg Oxycodone HCl (Roxicodone -) 10 mg PO Q3H PRN Last Admin: 08/08/16 14:25 Dose: 10 mg Pantoprazole Sodium (Protonix -) 40 mg PO DAILY [facility] Last Admin: 08/08/16 10:15 Dose: 40 mg Trazodone HCl (Desyrel -) 100 mg PO HS [facility] Last Admin: 08/07/16 21:42 Dose: 100 mg A/P 66 y/o patient with myeloproliferative disorder, s/p surgery for large bowel obstruction had rectal bleeding which has resolved on ASA venodynes CBC--platelet count aceptable on hydrea twice weekly resume heparin for DVT prophylaxis --5000u sc bid as hgb stable elevated WBC --baseline elevarted from underlying MPD monitor for s/s of infection
[2016-08-08] MEDS: traZODone HCL 50 MG TABLET (FP) PO SCH (22:07)
[2016-08-08] MEDS: HEPARIN NA (PORCINE) 5,000 UNITS/ML 1ML VIAL SQ SCH (22:08)
[2016-08-09] MEDS: ACETAMINOPHEN 325 MG TABLET (FP) PO PRN ×2 (07:31→14:47)
[2016-08-09] MEDS: oxyCODONE HCL 5 MG TABLET PO PRN ×2 (07:32→14:47)
[2016-08-09 08:49] LABS: MCH 29.5 pg (25.7-33.7); MCHC 31.5 g/dl (32.0-36.0); MEAN CELL VOLUME 93.7 fl (80-96); MEAN PLT VOLUME 9.7 fl (7.5-11.1); PLATELET COUNT 441 K/MM3 (134-434); RDW 18.4 % (11.6-15.6); WHITE BLOOD COUNT 17.2 K/mm3 (4.0-10.0)
[2016-08-09 08:58] LABS: NEUTROPHILS 88.1 % (42.8-82.8)
[2016-08-09 08:59] LABS: BASOPHIL 0.7 % (0-2.0); EOSINOPHIL 2.8 % (0-4.5)
[2016-08-09 09:13] LABS: CALCIUM 7.8 mg/dL (8.5-10.1); CREATININE 1.3 mg/dL (0.55-1.02); MAGNESIUM 1.7 mg/dL (1.8-2.4); PHOSPHOROUS 2.8 mg/dL (2.5-4.9)
[2016-08-09] MEDS ORDERED: PT OWN MED DRAWER 7, Y5N ONE (09:26)
[2016-08-09] MEDS: ASPIRIN 81 MG CHEWABLE TABLETS PO SCH (09:30)
[2016-08-09] MEDS: BUDESONIDE/FORMETEROL FUMARATE 160/4.5 mcg INHALER IH SCH ×2 (09:30→21:44)
[2016-08-09] MEDS: PANTOPRAZOLE 40 MG TABLET (FP) PO SCH (09:30)
[2016-08-09] MEDS: HEPARIN NA (PORCINE) 5,000 UNITS/ML 1ML VIAL SQ SCH ×2 (09:30→21:44)
[2016-08-09] MEDS: MAGNESIUM CL 64 MG TABLET.SA PO SCH (09:30)
[2016-08-09] MEDS: ACLIDINIUM BROMIDE 400 MCG/INH AERO.POWD IH SCH ×2 (09:31→21:44)
[2016-08-09] MEDS ORDERED: FUROSEMIDE 40 MG/4 ML INJECTABLE VIAL IVPB ONE (09:48)
--- NOTE | 2016-08-09 10:12 | PN ---
Progress Note (short form) - Note Progress Note: PULMONARY/MED +Flatus but still no BM. No nausea, vomiting. Pain controlled. Last Vital Signs Temp Pulse Resp BP Pulse Ox 98.0 F 81 17 145/74 98 08/09/16 13:50 08/09/16 13:50 08/09/16 13:50 08/09/16 09:17 08/09/16 09:00 Gen: NAD at rest Heart: RRR Lung: decreased breath sounds at the bases Abd: incision clean, nontender, +BS Ext: + edema CBC, BMP 08/09/16 08:00 08/09/16 08:00 Active Medications Acetaminophen (Tylenol -) 650 mg PO Q4H PRN PRN Reason: FEVER OR PAIN Last Admin: 08/09/16 14:47 Dose: 650 mg Aclidinium [place] (Tudorza -) 1 puff IH BID [facility] Last Admin: 08/09/16 09:31 Dose: Not Given Albuterol Sulfate (Ventolin Hfa Inhaler -) 2 puff IH Q4H PRN PRN Reason: SHORTNESS OF BREATH Albuterol Sulfate (Ventolin Hfa Inhaler -) 1 puff IH Q4H PRN PRN Reason: SHORTNESS OF BREATH Alprazolam (Xanax -) 0.25 mg PO Q8H PRN PRN Reason: ANXIETY Last Admin: 08/09/16 12:34 Dose: 0.25 mg Aspirin (Asa -) 81 mg PO DAILY [facility] Last Admin: 08/09/16 09:30 Dose: 81 mg Budesonide/Formoterol Fumarate (Symbicort 160/4.5mcg -) 2 puff IH BID [facility] Last Admin: 08/09/16 09:30 Dose: 2 puff Dicyclomine HCl (Bentyl -) 10 mg PO Q6H PRN PRN Reason: PAIN Last Admin: 08/01/16 21:28 Dose: 10 mg Heparin Sodium (Porcine) (Heparin -) 5,000 unit SQ BID [facility] Last Admin: 08/09/16 09:30 Dose: 5,000 unit Hydroxyurea (Hydrea -) 500 mg PO MoFr@10 [facility] Last Admin: 08/08/16 10:17 Dose: 500 mg Magnesium Chloride (Slow-Mag -) 64 mg PO DAILY [facility] Last Admin: 08/09/16 09:30 Dose: 64 mg Ondansetron HCl (Zofran Injection) 4 mg IVPB Q6H PRN PRN Reason: NAUSEA Last Admin: 07/30/16 01:10 Dose: 4 mg Oxycodone HCl (Roxicodone -) 10 mg PO Q3H PRN Last Admin: 08/09/16 14:47 Dose: 10 mg Pantoprazole Sodium (Protonix -) 40 mg PO DAILY [facility] Last Admin: 08/09/16 09:30 Dose: 40 mg Polyethylene Glycol (Miralax (For Daily Use) -) 17 gm PO DAILY [facility] Last Admin: 08/09/16 11:20 Dose: 17 grams Trazodone HCl (Desyrel -) 100 mg PO HS [facility] Last Admin: 08/08/16 22:07 Dose: 100 mg A/P Sigmoid Stricture/LBO s/p ex-lap/LAR 07/29/16 MPD COPD CKD - PO as tolerated - will start miralax - pain control - incentive spirometry - monitor WBC - inhaled bronchodilators - rehab/PT - DVT prophylaxis
[2016-08-09] MEDS: POLYETHYLENE GLYCOL 3350 119 GM BTL PO SCH (11:20)
[2016-08-09] MEDS ORDERED: FUROSEMIDE 20 MG TABLET (FP) PO ONE (12:30)
[2016-08-09] MEDS: ALPRAZolam 0.25 MG TABLET PO PRN ×2 (12:34→21:42)
[2016-08-09] MEDS: traZODone HCL 50 MG TABLET (FP) PO SCH (21:40)
[2016-08-10] MEDS: ALPRAZolam 0.25 MG TABLET PO PRN ×2 (06:12→14:22)
[2016-08-10] MEDS: oxyCODONE HCL 5 MG TABLET PO PRN ×2 (08:19→16:43)
[2016-08-10] MEDS: ACETAMINOPHEN 325 MG TABLET (FP) PO PRN ×2 (08:20→16:44)
[2016-08-10] MEDS ORDERED: PT OWN MED DRAWER 7, Y5N ONE ×2 (09:51→21:37)
[2016-08-10] MEDS: ACLIDINIUM BROMIDE 400 MCG/INH AERO.POWD IH SCH ×2 (09:55→21:42)
[2016-08-10] MEDS: BUDESONIDE/FORMETEROL FUMARATE 160/4.5 mcg INHALER IH SCH ×2 (09:55→21:42)
[2016-08-10] MEDS: POLYETHYLENE GLYCOL 3350 119 GM BTL PO SCH (09:55)
[2016-08-10] MEDS: HEPARIN NA (PORCINE) 5,000 UNITS/ML 1ML VIAL SQ SCH ×2 (09:55→21:42)
[2016-08-10] MEDS: ASPIRIN 81 MG CHEWABLE TABLETS PO SCH (09:55)
[2016-08-10] MEDS: MAGNESIUM CL 64 MG TABLET.SA PO SCH (09:55)
[2016-08-10] MEDS: PANTOPRAZOLE 40 MG TABLET (FP) PO SCH (09:55)
--- NOTE | 2016-08-10 12:27 | PN ---
Progress Note (short form) - Note Progress Note: MEDICAL ATTENDING AMBULATING TOLERATING DIET NO BM/+FLATUS VSS ANICTERIC/NECK STIFFNESS CHEST CLEAR/DISTANT S1S2 BS+ DISTENDED NO REBOUND OR GUARDING 2-3+ EDEMA B/L LOWER EXT LABS/MEDS/NOTES/IMAGING/CONSULTATIONS REVIEWED IMP: STABLE POST-OP ESSENTIAL THROMBOCYTHEMIA/MDS LEFT ADRENALECTOMY (BENIGN) COPD (FORMER SMOKER) ?AQUIRED TORTICOLLIS LOWER EXT EDEMA PLAN CONTINUE CURRENT POST-OP PLAN DIET ADVANCED TOLERATED MAGNESIUM TO BE REPLETED REHAB EVAL/PT ORDERED FOR NECK PAIN/SOFT CERVICAL COLLAR COLACE ORDERED TRIAL OF LASIX/MONITOR BUN,CR,SOULEYMANE LYNN MD
[2016-08-10] MEDS: FUROSEMIDE 40 MG TABLET (FP) PO SCH (12:50)
[2016-08-10] MEDS ORDERED: MAGNESIUM OXIDE 400 MG TABLET (FP) PO ONE (13:00)
[2016-08-10] MEDS ORDERED: MAGNESIUM CITRATE 300 ML BOTTLE PO ONE (15:00)
[2016-08-10] MEDS: DOCUSATE SODIUM 100 MG CAPSULE (FP) PO SCH ×2 (15:14→21:42)
--- NOTE | 2016-08-10 17:40 | PN ---
Progress Note (short form) - Note Progress Note: surgery pt seen and examined. tolerating diet with flatus but still no bm. still refusing enema. on miralax. afebrile abd- soft, mild distension, incision clean, nt Plan- pod#12. cont regular diet. constipation--- will give one bottle mag citrate since pt refusing enemas. pathology confirms stricture. blade removed. surgically stable to be on DVT prophylaxis.
--- NOTE | 2016-08-10 20:41 | PN ---
Progress Note (short form) - Note Progress Note: PAtient seen and examined 08/04 and 08/05/16 c/o constipation/nausea Last Vital Signs Temp Pulse Resp BP Pulse Ox 98.2 F 82 20 132/71 94 L 08/08/16 14:00 08/08/16 14:00 08/08/16 14:00 08/08/16 14:00 08/08/16 13:24 HEENT: TONEY, EOM Intact Oropharynx: No thrush, No mucositis Cor: RSR, No murmurs, No gallops Lungs: Clear to P&A Abd: Soft,BS+, mildly distended, no tenderness ext---2+ edema Current Medications Acetaminophen (Tylenol -) 650 mg PO Q4H PRN PRN Reason: FEVER OR PAIN Last Admin: 08/10/16 16:44 Dose: 650 mg Aclidinium [place] (Tudorza -) 1 puff IH BID [facility] Last Admin: 08/10/16 21:42 Dose: Not Given Albuterol Sulfate (Ventolin Hfa Inhaler -) 2 puff IH Q4H PRN PRN Reason: SHORTNESS OF BREATH Albuterol Sulfate (Ventolin Hfa Inhaler -) 1 puff IH Q4H PRN PRN Reason: SHORTNESS OF BREATH Alprazolam (Xanax -) 0.25 mg PO Q8H PRN PRN Reason: ANXIETY Last Admin: 08/10/16 14:22 Dose: 0.25 mg Aspirin (Asa -) 81 mg PO DAILY [facility] Last Admin: 08/10/16 09:55 Dose: 81 mg Budesonide/Formoterol Fumarate (Symbicort 160/4.5mcg -) 2 puff IH BID [facility] Last Admin: 08/10/16 21:42 Dose: 2 puff Dicyclomine HCl (Bentyl -) 10 mg PO Q6H PRN PRN Reason: PAIN Last Admin: 08/01/16 21:28 Dose: 10 mg Docusate Sodium (Colace -) 100 mg PO TID [facility] Last Admin: 08/10/16 21:42 Dose: 100 mg Furosemide (Lasix -) 40 mg PO DAILY [facility] Stop: 08/12/16 01:00 Last Admin: 08/10/16 12:50 Dose: 40 mg Heparin Sodium (Porcine) (Heparin -) 5,000 unit SQ BID [facility] Last Admin: 08/10/16 21:42 Dose: 5,000 unit Hydroxyurea (Hydrea -) 500 mg PO MoFr@10 [facility] Last Admin: 08/08/16 10:17 Dose: 500 mg Magnesium Chloride (Slow-Mag -) 64 mg PO DAILY [facility] Last Admin: 08/10/16 09:55 Dose: 64 mg Ondansetron HCl (Zofran Injection) 4 mg IVPB Q6H PRN PRN Reason: NAUSEA Last Admin: 07/30/16 01:10 Dose: 4 mg Oxycodone HCl (Roxicodone -) 10 mg PO Q3H PRN Last Admin: 08/10/16 16:43 Dose: 10 mg Pantoprazole Sodium (Protonix -) 40 mg PO DAILY [facility] Last Admin: 08/10/16 09:55 Dose: 40 mg Polyethylene Glycol (Miralax (For Daily Use) -) 17 gm PO DAILY [facility] Last Admin: 08/10/16 09:55 Dose: 17 grams Trazodone HCl (Desyrel -) 100 mg PO HS [facility] Last Admin: 08/10/16 21:42 Dose: 100 mg A/P 66 y/o patient with myeloproliferative disorder, s/p surgery for large bowel obstruction had rectal bleeding which has resolved on ASA venodynes CBC--platelet count aceptable on hydrea twice weekly resumed heparin for DVT prophylaxis --5000u sc bid hgb stable elevated WBC --baseline elevated from underlying MPD monitor for s/s of infection constipation --received mag citrate today check stool for c.diff advancing diet leg edema--duplexes neg. on lasix monitoring CMP
[2016-08-10] MEDS: traZODone HCL 50 MG TABLET (FP) PO SCH (21:42)
[2016-08-11] MEDS: DOCUSATE SODIUM 100 MG CAPSULE (FP) PO SCH ×3 (06:27→22:06)
[2016-08-11] MEDS: ALPRAZolam 0.25 MG TABLET PO PRN ×2 (06:43→13:39)
[2016-08-11 08:00] LABS: MCHC 31.5 g/dl (32.0-36.0); MEAN CELL VOLUME 92.2 fl (80-96); MEAN PLT VOLUME 9.6 fl (7.5-11.1); PLATELET COUNT 482 K/MM3 (134-434); RDW 18.5 % (11.6-15.6); WHITE BLOOD COUNT 17.7 K/mm3 (4.0-10.0)
[2016-08-11 08:45] LABS: ALBUMIN 2.7 g/dl (3.4-5.0); BILIRUBIN,TOTAL 0.3 mg/dL (0.2-1.0); CALCIUM 8.2 mg/dL (8.5-10.1); CREATININE 1.3 mg/dL (0.55-1.02); TOT PROT 5.2 g/dl (6.4-8.2)
[2016-08-11 09:02] LABS: ANISOCYTOSIS 2+; MICROCYTOSIS 2+; OVALOCYTES 2+; POIKILOCYTOSIS 2+; POLYCHROMASIA 1+; TEAR DROP CELLS 2+
[2016-08-11] MEDS ORDERED: PT OWN MED DRAWER 7, Y5N ONE ×2 (09:17→09:35)
[2016-08-11] MEDS: oxyCODONE HCL 5 MG TABLET PO PRN ×2 (09:21→17:18)
[2016-08-11] MEDS: PANTOPRAZOLE 40 MG TABLET (FP) PO SCH (09:22)
[2016-08-11] MEDS: ASPIRIN 81 MG CHEWABLE TABLETS PO SCH (09:22)
[2016-08-11] MEDS: FUROSEMIDE 40 MG TABLET (FP) PO SCH (09:22)
[2016-08-11] MEDS: HEPARIN NA (PORCINE) 5,000 UNITS/ML 1ML VIAL SQ SCH ×2 (09:23→22:06)
[2016-08-11] MEDS: BUDESONIDE/FORMETEROL FUMARATE 160/4.5 mcg INHALER IH SCH ×2 (09:24→22:04)
[2016-08-11] MEDS: POLYETHYLENE GLYCOL 3350 119 GM BTL PO SCH (09:25)
--- NOTE | 2016-08-11 12:25 | PN ---
Progress Note (short form) - Note Progress Note: PULMONARY/MED Finally with BM. Abdominal distention less. No nausea or vomiting. No fevers or chills. c/o increasing leg swelling. Last Vital Signs Temp Pulse Resp BP Pulse Ox 98.4 F 82 20 136/74 96 08/11/16 05:54 08/11/16 05:54 08/11/16 05:54 08/11/16 05:54 08/10/16 21:00 Gen: NAD at rest Heart: RRR Lung: decreased breath sounds at the bases Abd: incision clean, nontender, +BS Ext: + edema CBC, BMP 08/11/16 07:30 08/11/16 07:30 Active Medications Acetaminophen (Tylenol -) 650 mg PO Q4H PRN PRN Reason: FEVER OR PAIN Last Admin: 08/10/16 16:44 Dose: 650 mg Aclidinium [place] (Tudorza -) 1 puff IH BID [facility] Last Admin: 08/10/16 21:42 Dose: Not Given Albuterol Sulfate (Ventolin Hfa Inhaler -) 2 puff IH Q4H PRN PRN Reason: SHORTNESS OF BREATH Albuterol Sulfate (Ventolin Hfa Inhaler -) 1 puff IH Q4H PRN PRN Reason: SHORTNESS OF BREATH Alprazolam (Xanax -) 0.25 mg PO Q8H PRN PRN Reason: ANXIETY Last Admin: 08/11/16 06:43 Dose: 0.25 mg Aspirin (Asa -) 81 mg PO DAILY [facility] Last Admin: 08/11/16 09:22 Dose: 81 mg Budesonide/Formoterol Fumarate (Symbicort 160/4.5mcg -) 2 puff IH BID [facility] Last Admin: 08/11/16 09:24 Dose: 2 puff Dicyclomine HCl (Bentyl -) 10 mg PO Q6H PRN PRN Reason: PAIN Last Admin: 08/01/16 21:28 Dose: 10 mg Docusate Sodium (Colace -) 100 mg PO TID [facility] Last Admin: 08/11/16 06:27 Dose: Not Given Furosemide (Lasix -) 40 mg PO DAILY [facility] Stop: 08/12/16 01:00 Last Admin: 08/11/16 09:22 Dose: 40 mg Heparin Sodium (Porcine) (Heparin -) 5,000 unit SQ BID [facility] Last Admin: 08/11/16 09:23 Dose: 5,000 unit Hydroxyurea (Hydrea -) 500 mg PO MoFr@10 [facility] Last Admin: 08/08/16 10:17 Dose: 500 mg Magnesium Chloride (Slow-Mag -) 64 mg PO DAILY [facility] Last Admin: 08/10/16 09:55 Dose: 64 mg Ondansetron HCl (Zofran Injection) 4 mg IVPB Q6H PRN PRN Reason: NAUSEA Last Admin: 07/30/16 01:10 Dose: 4 mg Oxycodone HCl (Roxicodone -) 10 mg PO Q3H PRN Last Admin: 08/11/16 09:21 Dose: 10 mg Pantoprazole Sodium (Protonix -) 40 mg PO DAILY [facility] Last Admin: 08/11/16 09:22 Dose: 40 mg Polyethylene Glycol (Miralax (For Daily Use) -) 17 gm PO DAILY [facility] Last Admin: 08/11/16 09:25 Dose: Not Given Trazodone HCl (Desyrel -) 100 mg PO HS [facility] Last Admin: 08/10/16 21:42 Dose: 100 mg A/P Sigmoid Stricture/LBO s/p ex-lap/LAR 07/29/16 MPD COPD CKD - will dose additional lasix today - PO as tolerated - pain control - incentive spirometry - monitor WBC - inhaled bronchodilators - rehab/PT - DVT prophylaxis
[2016-08-11] MEDS: ACLIDINIUM BROMIDE 400 MCG/INH AERO.POWD IH SCH ×2 (13:40→22:04)
[2016-08-11] MEDS ORDERED: FUROSEMIDE 40 MG TABLET (FP) PO ONE (14:00)
[2016-08-11] MEDS: MAGNESIUM CL 64 MG TABLET.SA PO SCH (14:11)
--- NOTE | 2016-08-11 21:43 | PN ---
Progress Note (short form) - Note Progress Note: PAtient seen and examined 08/04 and 08/05/16 c/o constipation/nausea Last Vital Signs Temp Pulse Resp BP Pulse Ox 98.2 F 82 20 132/71 94 L 08/08/16 14:00 08/08/16 14:00 08/08/16 14:00 08/08/16 14:00 08/08/16 13:24 HEENT: TONEY, EOM Intact Oropharynx: No thrush, No mucositis Cor: RSR, No murmurs, No gallops Lungs: Clear to P&A Abd: Soft,BS+, mildly distended, no tenderness ext---2+ edema Current Medications Acetaminophen (Tylenol -) 650 mg PO Q4H PRN PRN Reason: FEVER OR PAIN Last Admin: 08/10/16 16:44 Dose: 650 mg Aclidinium [place] (Tudorza -) 1 puff IH BID [facility] BEDS AT [facility] Last Admin: 08/10/16 21:42 Dose: Not Given Albuterol Sulfate (Ventolin Hfa Inhaler -) 2 puff IH Q4H PRN PRN Reason: SHORTNESS OF BREATH Albuterol Sulfate (Ventolin Hfa Inhaler -) 1 puff IH Q4H PRN PRN Reason: SHORTNESS OF BREATH Alprazolam (Xanax -) 0.25 mg PO Q8H PRN PRN Reason: ANXIETY Last Admin: 08/10/16 14:22 Dose: 0.25 mg Aspirin (Asa -) 81 mg PO DAILY [facility] 234 BEDS AT [facility] Last Admin: 08/10/16 09:55 Dose: 81 mg Budesonide/Formoterol Fumarate (Symbicort 160/4.5mcg -) 2 puff IH BID [facility] 234 BEDS AT [facility] Last Admin: 08/10/16 21:42 Dose: 2 puff Dicyclomine HCl (Bentyl -) 10 mg PO Q6H PRN PRN Reason: PAIN Last Admin: 08/01/16 21:28 Dose: 10 mg Docusate Sodium (Colace -) 100 mg PO TID [facility] 234 BEDS AT [facility] Last Admin: 08/10/16 21:42 Dose: 100 mg Furosemide (Lasix -) 40 mg PO DAILY [facility] 234 BEDS AT [facility] Stop: 08/12/16 01:00 Last Admin: 08/10/16 12:50 Dose: 40 mg Heparin Sodium (Porcine) (Heparin -) 5,000 unit SQ BID [facility] 234 BEDS AT [facility] Last Admin: 08/10/16 21:42 Dose: 5,000 unit Hydroxyurea (Hydrea -) 500 mg PO MoFr@10 [facility] 234 BEDS AT [facility] Last Admin: 08/08/16 10:17 Dose: 500 mg Magnesium Chloride (Slow-Mag -) 64 mg PO DAILY [facility] 234 BEDS AT [facility] Last Admin: 08/10/16 09:55 Dose: 64 mg Ondansetron HCl (Zofran Injection) 4 mg IVPB Q6H PRN PRN Reason: NAUSEA Last Admin: 07/30/16 01:10 Dose: 4 mg Oxycodone HCl (Roxicodone -) 10 mg PO Q3H PRN Last Admin: 08/10/16 16:43 Dose: 10 mg Pantoprazole Sodium (Protonix -) 40 mg PO DAILY [facility] 234 BEDS AT [facility] Last Admin: 08/10/16 09:55 Dose: 40 mg Polyethylene Glycol (Miralax (For Daily Use) -) 17 gm PO DAILY [facility] 234 BEDS AT [facility] Last Admin: 08/10/16 09:55 Dose: 17 grams Trazodone HCl (Desyrel -) 100 mg PO HS [facility] 234 BEDS AT [facility] Last Admin: 08/10/16 21:42 Dose: 100 mg A/P 66 y/o patient with myeloproliferative disorder, s/p surgery for large bowel obstruction had rectal bleeding which has resolved on ASA venodynes CBC--platelet count aceptable on hydrea twice weekly------ increase to thrice weekly as platelets trending up resumed heparin for DVT prophylaxis --5000u sc bid hgb stable elevated WBC --baseline elevated from underlying MPD monitor for s/s of infection constipation --on laxatives. improved leg edema--duplexes neg. on lasix monitoring CMP torticollis--awaiting soft collar
[2016-08-11] MEDS: traZODone HCL 50 MG TABLET (FP) PO SCH (22:05)
[2016-08-12] MEDS: ALPRAZolam 0.25 MG TABLET PO PRN ×2 (01:41→12:12)
[2016-08-12] MEDS: DOCUSATE SODIUM 100 MG CAPSULE (FP) PO SCH ×2 (05:52→14:56)
[2016-08-12] MEDS: oxyCODONE HCL 5 MG TABLET PO PRN ×2 (07:12→14:56)
[2016-08-12 08:30] LABS: BASOPHIL 0.9 % (0-2.0); EOSINOPHIL 1.8 % (0-4.5); MCH 29.6 pg (25.7-33.7); MCHC 31.9 g/dl (32.0-36.0); MEAN CELL VOLUME 92.8 fl (80-96); MEAN PLT VOLUME 10.3 fl (7.5-11.1); NEUTROPHILS 88.2 % (42.8-82.8); PLATELET COUNT 539 K/MM3 (134-434); RDW 18.6 % (11.6-15.6); WHITE BLOOD COUNT 18.6 K/mm3 (4.0-10.0)
[2016-08-12 09:10] LABS: CALCIUM 8.1 mg/dL (8.5-10.1); CREATININE 1.5 mg/dL (0.55-1.02); MAGNESIUM 2.2 mg/dL (1.8-2.4); PHOSPHOROUS 2.4 mg/dL (2.5-4.9)
[2016-08-12] MEDS ORDERED: PT OWN MED DRAWER 7, Y5N ONE ×2 (09:22→09:40)
[2016-08-12] MEDS: ASPIRIN 81 MG CHEWABLE TABLETS PO SCH (09:30)
[2016-08-12] MEDS: PANTOPRAZOLE 40 MG TABLET (FP) PO SCH (09:30)
[2016-08-12] MEDS: MAGNESIUM CL 64 MG TABLET.SA PO SCH (09:30)
[2016-08-12] MEDS: HEPARIN NA (PORCINE) 5,000 UNITS/ML 1ML VIAL SQ SCH (09:30)
[2016-08-12] MEDS: BUDESONIDE/FORMETEROL FUMARATE 160/4.5 mcg INHALER IH SCH (09:31)
[2016-08-12] MEDS: ACLIDINIUM BROMIDE 400 MCG/INH AERO.POWD IH SCH (09:32)
[2016-08-12] MEDS: POLYETHYLENE GLYCOL 3350 119 GM BTL PO SCH (09:33)
[2016-08-12] MEDS ORDERED: HYDROXYUREA 500 MG CAPSULE PO SCH (10:00)
[2016-08-12 12:36] VITALS: BP 142/85
--- NOTE | 2016-08-12 13:36 | DS ---
Physical Examination Vital Signs: Vital Signs Temperature 98.5 F 08/12/16 09:00 Pulse Rate 82 08/12/16 09:00 Respiratory Rate 20 08/12/16 09:00 Blood Pressure 142/85 08/12/16 09:00 O2 Sat by Pulse Oximetry (%) 96 08/11/16 21:00 Constitutional: Yes: Calm Eyes: Yes: EOM Intact HENT: Yes: Normocephalic Neck: Yes: Other (right torticollis) Cardiovascular: Yes: S1, S2 Respiratory: Yes: Diminished Gastrointestinal: Yes: Normal Bowel Sounds, Soft ...Rectal Exam: Yes: Deferred Edema: LLE: 1+, RLE: 1+ Neurological: Yes: Oriented Labs: CBC, BMP 08/12/16 07:00 08/12/16 07:00 Discharge Summary Reason For Visit: LOWER ABDOMINAL PAIN/CONSTIPATION Current Active Problems Abdominal pain (Acute) Anxiety (Acute) Bronchitis (Acute) IBS (irritable bowel syndrome) (Acute) Stricture of sigmoid colon (Acute) Condition: Stable - Instructions Referrals: Piero Ortiz MD [Primary Care Provider] - - Home Medications Comprehensive Discharge Medication List: Ambulatory Orders Albuterol Sulfate [Proair Hfa -] 1 - 2 inh PO PRN PRN 01/28/14 Trazodone HCl [Desyrel -] 100 mg PO HS 01/28/14 Aspirin [ASA -] 81 mg PO DAILY 10/30/15 Hydroxyurea [Hydrea] 500 mg PO ASDIR #30 11/03/15 Tiotropium [place] [Spiriva] 1 inh PO DAILY 07/01/16 Alprazolam [Xanax] 0.25 mg PO Q8H PRN 07/21/16 Dicyclomine HCl [Bentyl -] 10 mg PO Q6H PRN 07/25/16 Polyethylene Glycol 3350 [Miralax 119 gm Btl -] 17 gm PO HS 07/25/16 Acetaminophen [Tylenol .Regular Strength -] 650 mg PO Q4H PRN #0 tablet Albuterol Sulfate Inhaler - [Ventolin HFA Inhaler -] 2 puff IH Q4H PRN #0 inhaler 08/12/16 Aspirin [ASA -] 81 mg PO DAILY tab.chew 08/12/16 Budesonide/Formeterol Fumarate [SYMBICORT 160/4.5mcg -] 2 puff IH BID inhaler 08/12/16 Dicyclomine HCl [Bentyl -] 10 mg PO Q6H PRN #0 08/12/16 Docusate Sodium [Colace -] 100 mg PO TID 08/12/16 Furosemide [Lasix -] 40 mg PO DAILY tablet 08/12/16 Hydroxyurea [Hydrea 500Mg Capsule -] 500 mg PO MOFRSA@10 08/12/16 Pantoprazole Sodium [Protonix -] 40 mg PO DAILY 08/12/16 Polyethylene Glycol 3350 [Miralax 119 gm Btl -] 17 gm PO DAILY bottle 08/12/16 Trazodone HCl [Desyrel -] 100 mg PO HS tablet 08/12/16
[2016-08-12 14:55] VITALS: PULSE 79; TEMP 97.9
[2016-08-12] MEDS ORDERED: FUROSEMIDE 40 MG TABLET (FP) PO ONE (16:00)
== END 2016-08-12 16:57 | disposition home or self-care (01) | DRG 330 ==
LOC: JER 13:09 → JERBED 16:03 → UNDOADMIN 16:26 → JERBED 16:26 → J7W 21:28 → J6S 07-29 13:55
PROVIDERS: ADMIT Specialist; ATTEND Specialist
PROC: 0DBG0ZZ Excision of Left Large Intestine, Open Approach (ICD-10-PCS; 2016-07-29)
PROC: 0DNW0ZZ Release Peritoneum, Open Approach (ICD-10-PCS; 2016-07-29)
PROC: 0D7Q0ZZ Dilation of Anus, Open Approach (ICD-10-PCS; 2016-07-29)
PROC: 0DJD8ZZ Inspection of Lower Intestinal Tract, Via Natural or Artificial Opening Endoscopic (ICD-10-PCS; 2016-07-29)
PROC: 3E1M38Z Irrigation of Peritoneal Cavity using Irrigating Substance, Percutaneous Approach (ICD-10-PCS; 2016-07-29)
PROC: 0DBN0ZZ Excision of Sigmoid Colon, Open Approach (ICD-10-PCS; principal; 2016-07-29 11:00)
PROC: 30233N1 Transfusion of Nonautologous Red Blood Cells into Peripheral Vein, Percutaneous Approach (ICD-10-PCS; 2016-07-30)
DX: K56.69 Other intestinal obstruction (principal); C94.6 Myelodysplastic disease, not elsewhere classified; R18.8 Other ascites; D62 Acute posthemorrhagic anemia; K92.2 Gastrointestinal hemorrhage, unspecified; E87.0 Hyperosmolality and hypernatremia; K59.00 Constipation, unspecified; K58.1 Irritable bowel syndrome with constipation; J44.9 Chronic obstructive pulmonary disease, unspecified; D72.829 Elevated white blood cell count, unspecified; E86.0 Dehydration; D47.3 Essential (hemorrhagic) thrombocythemia; Z87.891 Personal history of nicotine dependence; K57.90 Diverticulosis of intestine, part unspecified, without perforation or abscess without bleeding; N73.6 Female pelvic peritoneal adhesions (postinfective); N18.9 Chronic kidney disease, unspecified
CPT/HCPCS: 36415; 36430; 71010-TC; 74020-TC; 74176-TC; 80048; 80053; 80076; 81003; 81015; 83735; 84100; 85025; 85027; 85610; 85730; 86850; 86900; 86901; 86922; 87040; 87177; 87207; 87209; 87324; 87328; 87329; 87449; 88300-TC; 88304-TC; 88307-TC; 93970-TC; 94660; 94667; 94760; 97116-GP; 97162-PG; 99284-25; J1644; J8999; P9038; P9058

== ENCOUNTER 2016-11-14 07:48 | Day surgery (SDC) | payer OTHER, MEDICARE ==
[2016-11-11 11:44] VITALS: BMI 18.1
[2016-11-14] MEDS ORDERED: PROPOFOL 20 ML ONE ×2 (09:37)
[2016-11-14 10:17] VITALS: TEMP 98.6
[2016-11-14 11:54] VITALS: BP 147/77; PULSE 72
--- NOTE | 2016-11-15 11:45 | PATH ---
Surgical Pathology Report Patient Name: SKYE ALMAGUER [facility]. Rec. #: [id number] /Age/Gender: 1950 (Age: 66) / F Account: [id number] Location: U-ENDOSCOPY Taken: 11/14/2016 Received: 11/14/2016 Reported: 11/15/2016 Physicians: Laith Goetz M.D. Specimen(s) Received BX ULCERATED ANASTOMOSIS Clinical History Rule out stricture Ulcerated anastomosis, grade 3 hemorrhoids Final Diagnosis COLON, ULCERATED ANASTOMOSIS, BIOPSY: ULCERATED COLONIC MUCOSA WITH ASSOCIATED ACTIVE INFLAMMATION, INFLAMED GRANULATION TISSUE AND ARCHITECTURAL DISARRAY. NO EVIDENCE OF GRANULOMATA, DYSPLASIA/ADENOMA, OR CARCINOMA. Electronically Signed Andrew Ewing M.D. Gross Description Received in formalin, labeled "biopsy ulcerated anastomosis" are 4 singh, irregular portions of soft tissue ranging from 0.1-0.3 cm in greatest dimension. The specimens are submitted in toto in one cassette. 11/14/201611/14/2016
== END 2016-11-14 11:54 | disposition home or self-care (01) ==
LOC: JASU-ENDO 07:48
PROVIDERS: ATTEND Internal Medicine Gastroenterology
PROC: 0DBN8ZX Excision of Sigmoid Colon, Via Natural or Artificial Opening Endoscopic, Diagnostic (ICD-10-PCS; principal; 2016-11-14 09:00)
DX: K59.00 Constipation, unspecified (principal); K64.8 Other hemorrhoids; Z98.0 Intestinal bypass and anastomosis status
CPT/HCPCS: 88305-TC

== ENCOUNTER 2017-02-06 13:31 | Day surgery (SDC) | payer OTHER, MEDICARE ==
[2017-02-06 14:29] VITALS: BMI 18.8
[2017-02-06] MEDS ORDERED: PROPOFOL 20 ML ONE ×2 (14:54→14:55)
[2017-02-06 15:50] VITALS: TEMP 98.6
[2017-02-06 16:23] VITALS: BP 135/77; PULSE 74
--- NOTE | 2017-02-08 15:55 | PATH ---
Surgical Pathology Report Patient Name: SKYE ALMAGUER [facility]. Rec. #: [id number] /Age/Gender: 1950 (Age: 66) / F Account: [id number] Location: [facility]-ENDOSCOPY Taken: 02/06/2017 Received: 02/07/2017 Reported: 02/08/2017 Physicians: Laith Goetz M.D. Specimen(s) Received BX SIGMOID ANASTOMOSIS Clinical History Sigmoid colon ulcer Healed ulceration of sigmoid anastomosis Final Diagnosis COLON, SIGMOID ANASTOMOSIS, BIOPSY: COLONIC MUCOSA WITH ACTIVE INFLAMMATION WITH INFLAMED GRANULATION TISSUE AND ARCHITECTURAL DISARRAY. NO EVIDENCE OF GRANULOMATA, DYSPLASIA/ADENOMA OR CARCINOMA. Electronically Signed Andrew Ewing M.D. Gross Description Received in formalin, labeled "sigmoid anastomosis" is a singh, irregular portion of soft tissue measuring 0.4 cm in greatest dimension. The specimen is submitted in toto in one cassette. /02/07/201702/07/2017
== END 2017-02-06 16:26 | disposition home or self-care (01) ==
LOC: JASU-ENDO 13:31
PROVIDERS: ATTEND Internal Medicine Gastroenterology
PROC: 0DBN8ZX Excision of Sigmoid Colon, Via Natural or Artificial Opening Endoscopic, Diagnostic (ICD-10-PCS; principal; 2017-02-06 14:30)
DX: K63.3 Ulcer of intestine (principal); K64.8 Other hemorrhoids
CPT/HCPCS: 88305-TC

== ENCOUNTER 2017-02-09 11:02 | Emergency (ER) | payer OTHER, MEDICARE ==
[2017-02-09 11:17] VITALS: BMI 18.8
--- NOTE | 2017-02-09 11:23 | PDOC ---
History of Present Illness - History of Present Illness Initial Comments: 02/09/17 12:35 The patient is a 66 year old with pmhx of anxiety (0.25 Xanax TID), COPD (O2 at home when needed), hemorrhoids, diverticulosis, cardiomegaly, splenomegaly, hepatomegaly, Kidney cysts, myeloproliferative disorder, IBS, and thrombocytopenia, who presents to the emergency department with two days of increased shortness of breath. The patient states she had been feeling short of breath for about two weeks which she attributes to her new medication at the time, Apriso. She states her PCP decreased her Apriso dosage from 4 caplets to 2 caplets without improvement of her breathing. She reports the Deprizio was discontinued and she was started on Breo for her dyspnea which the patient states made my breathing worse. She states she has not taken the Breo for about a week. She reports using her at home O2 usually after cleaning her home , however, reports she has been using the O2 everyday this week. She states her dyspnea is aggravated with lying flat. She also reports increasing the amount of pillows used while sleeping from 2 to 3 today with slight improvement of her shortness of breath. She also reports a dry, non-productive cough. She denies chest pain, headache and dizziness. She denies fever, chills, nausea , vomit, diarrhea and constipation. She denies dysuria, frequency, urgency and hematuria. Allergies: NKDA Past surgical history: intestinal resection (2 Feet) Social history: former tobacco use (6 years ago) PCP - Dr. Ortiz Pawn Broker - Dr. 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 Bravo Degroot <Suni Patino - Last Filed: 02/09/17 13:28> <Yane Fine - Last Filed: 02/09/17 14:31> - General Chief Complaint: Shortness of Breath Stated Complaint: SOB Time Seen by Provider: 02/09/17 11:23 Past History <Suni Patino - Last Filed: 02/09/17 13:28> - Past Medical History Anemia: No Asthma: No Cancer: Yes (BENIGN ADRENAL MASS) Cardiac Disorders: No CVA: No COPD: Yes CHF: No Dementia: No Diabetes: No GI Disorders: Yes (ibs,diverticulosis;ULCERATIVE/COLITIS/CROHN'S DISEASE) Disorders: Yes (kidney cysts) HTN: Yes Hypercholesterolemia: No Kidney Stones: Yes Liver Disease: No Psychiatric Problems: Yes (ANXIETY) Suicide Attempt (Hx): No Seizures: No Thyroid Disease: No - Surgical History Abdominal Surgery: Yes (PARTIAL RESECTION OF COLON) Appendectomy: No Cardiac Surgery: No Cholecystectomy: No Lung Surgery: No Neurologic Surgery: No Orthopedic Surgery: No - Immunization History Immunization Up to Date: Yes - Psycho/Social/Smoking Cessation Hx Anxiety: Yes Suicidal Ideation: No Smoking Status: Yes Smoking History: Former smoker Have you smoked in the past 12 months: No Number of Cigarettes Smoked Daily: 5 If you are a former smoker, when did you quit?: 2010 Information on smoking cessation initiated: No 'Breaking Loose' booklet given: 02/20/13 Hx Alcohol Use: No Drug/Substance Use Hx: No Substance Use Type: None Hx Substance Use Treatment: No <Yane Fine - Last Filed: 02/09/17 14:31> - Past Medical History Allergies/Adverse Reactions: Allergies Allergy/AdvReac Type Severity Reaction Status Date / Time Sulfa (Sulfonamide Allergy Verified 02/09/17 11:12 Antibiotics) Home Medications: Ambulatory Orders Albuterol Sulfate [Proair Hfa -] 1 - 2 inh PO PRN PRN 01/28/14 Aspirin [ASA -] 81 mg PO DAILY 10/30/15 Hydroxyurea [Hydrea] 500 mg PO ASDIR #30 11/03/15 Alprazolam [Xanax] 0.25 mg PO TID PRN 07/21/16 Budesonide/Formeterol Fumarate [SYMBICORT 160/4.5mcg -] 2 puff IH BID inhaler 08/12/16 Trazodone HCl [Desyrel -] 100 mg PO HS tablet 08/12/16 Allopurinol [Zyloprim -] 100 mg PO DAILY 11/14/16 Anagrelide HCl [Agrylin -] 0.5 mg PO Q3H6XD 11/14/16 Docusate Sodium [Colace -] 100 mg PO BID 11/14/16 Hydrocortisone [Proctosol-Hc] 28.35 gm RC DAILY 02/06/17 Linaclotide [Linzess] 72 mcg PO Q2D 02/06/17 Tiotropium Br/Olodaterol HCl [Stiolto Respimat Inhal [place]] 4 gm IH BID #1 mist.inhal 02/09/17 Review of Systems - Review of Systems Able to Perform ROS?: Yes Comments:: 02/09/17 12:35 GENERAL/CONSTITUTIONAL: No fever or chills. No weakness. HEAD, EYES, EARS, NOSE AND THROAT: No change in vision. No ear pain or discharge. No sore throat. CARDIOVASCULAR: No chest pain or shortness of breath. RESPIRATORY: (+) dyspnea, orthopnea, dry cough, No wheezing, or hemoptysis. GASTROINTESTINAL: No nausea, vomiting, diarrhea or constipation. GENITOURINARY: No dysuria, frequency, or change in urination. MUSCULOSKELETAL: No joint or muscle swelling or pain. No neck or back pain. SKIN: No rash NEUROLOGIC: No headache, vertigo, loss of consciousness, or change in strength/ sensation. ENDOCRINE: No increased thirst. No abnormal weight change. HEMATOLOGIC/LYMPHATIC: No anemia, easy bleeding, or history of blood clots. ALLERGIC/IMMUNOLOGIC: No hives or skin allergy. <Suni Patino - Last Filed: 02/09/17 13:28> *Physical Exam - Vital Signs Last Vital Signs Temp Pulse Resp BP Pulse Ox 98.7 F 95 H 16 149/70 95 02/09/17 11:12 02/09/17 11:12 02/09/17 11:12 02/09/17 11:12 02/09/17 11:12 - Physical Exam Comments: 02/09/17 12:36 GENERAL: Awake, alert, and fully oriented, in mild respiratory distress HEAD: No signs of trauma EYES: PERRLA, EOMI, sclera anicteric, conjunctiva clear ENT: Auricles normal inspection, hearing grossly normal, nares patent, oropharynx clear without exudates. Moist mucosa NECK: Normal ROM, supple, no lymphadenopathy, JVD, or masses LUNGS: (+) good air entry, tachypneic, speaking in 2-3 word sentences. Breath sounds equal, clear to auscultation bilaterally. No wheezes, and no crackles HEART: Regular rate and rhythm, normal S1 and S2, no murmurs, rubs or gallops ABDOMEN: Soft, nontender, normoactive bowel sounds. No guarding, no rebound. No masses EXTREMITIES: Normal range of motion, no edema. No clubbing or cyanosis. No cords, erythema, or tenderness NEUROLOGICAL: Cranial nerves II through XII grossly intact. Normal speech, normal gait SKIN: Warm, Dry, normal turgor, no rashes or lesions noted. <Suni Patino - Last Filed: 02/09/17 13:28> - Vital Signs Last Vital Signs Temp Pulse Resp BP Pulse Ox 98.7 F 95 H 16 149/70 95 02/09/17 11:12 02/09/17 11:12 02/09/17 11:12 02/09/17 11:12 02/09/17 11:12 <Yane Fine - Last Filed: 02/09/17 14:31> ED Treatment Course - LABORATORY CBC & Chemistry Diagram: 02/09/17 11:40 - ADDITIONAL ORDERS Additional order review: 02/09/17 11:40 RBC 3.12 L MCV 95.1 MCHC 31.7 L RDW 19.1 H MPV 9.1 D Neutrophils % Y Lymphocytes % Y - RADIOLOGY Radiograph Interpretation: 02/09/17 13:28 EXAM#: TYPE/EXAM: RESULT: [id number] RAD/CHEST PA LAT HISTORY: Shortness of breath. Frontal and lateral view of the chest is provided. Prior study is dated August 09, 2016. Cardiomegaly is stable in appearance. There has been interval resolution of left pleural effusion and there is improved aeration of the left base. No focal consolidation or pleural effusion is seen in either lung. There is some mild apical pleural thickening. There is osteopenia. IMPRESSION: Cardiomegaly. Reported By: Kelsey Melissa MD 02/09/17 1240 - Medications Given in the ED: ED Medications Discontinued Medications Generic Name Dose Route Start Last Admin Trade Name Freq PRN Reason Stop Dose Admin Albuterol/Ipratropium 1 amp 02/09/17 11:45 02/09/17 12:31 Duoneb - NEB 02/09/17 12:31 1 amp Q15M RANDI Administration <Suni Patino - Last Filed: 02/09/17 13:28> - LABORATORY CBC & Chemistry Diagram: 02/09/17 11:40 <Yane Fine - Last Filed: 02/09/17 14:31> Medical Decision Making - Medical Decision Making 02/09/17 12:47 Dr. Ortiz, pulmonology, was paged via phone answering service requesting a call back for doctor to doctor consult. 02/09/17 13:25 Dr. Ortiz, pulmonology, was paged via phone answering service a second time requesting a call back for doctor to doctor consult. <Suni Patino - Last Filed: 02/09/17 13:28> - Medical Decision Making 02/09/17 14:18 Pt presents to the ED complaining of a one month history of wheezing and shortness of breath that has been becoming progressively worse. Denies other complaints. Seen by Dr. Ochoa for the same complaint, told to take brio which is not helping. Denies fevers or productive cough. Feels improved after nebs in the ED. Case discussed with DR. Camacho. Will prescribe stiolo and discharge home. HE will see the patient in the office on Monday. <Yane Fine - Last Filed: 02/09/17 14:31> *DC/Admit/Observation/Transfer - Attestations Scribe Attestion: 02/09/17 12:39 Documentation prepared by Suni Patino, acting as senior medical director for Yane Fine MD, <Suni Patino - Last Filed: 02/09/17 13:28> - Discharge Dispostion Admit: No <Yane Fine - Last Filed: 02/09/17 14:31> Diagnosis at time of Disposition: COPD (chronic obstructive pulmonary disease) Qualifiers: COPD type: emphysema Emphysema type: unspecified Qualified Code(s): J43.9 - Emphysema, unspecified - Discharge Dispostion Disposition: HOME Condition at time of disposition: Good - Prescriptions Prescriptions: Tiotropium Br/Olodaterol HCl [Stiolto Respimat Inhal [place]] 4 gm IH BID #1 mist.inhal - Referrals Referrals: Piero Ortiz MD [Staff Physician] - - Patient Instructions Printed Discharge Instructions: DI for Chronic Obstructive Pulmonary Disease Additional Instructions: return to the ED for severe shortness of breath, productive cough, fever, chest pain, other new or worsening symptoms. Make sure that you see Dr. Ortiz on Monday.
[2017-02-09] MEDS: ALBUTEROL SO4 2.5/IPRATROPIUM 0.5 INH SOL 3 ML VIAL.NEB. NEB SCH ×4 (11:54→12:31)
[2017-02-09 11:57] LABS: MCH 30.2 pg (25.7-33.7); MCHC 31.7 g/dl (32.0-36.0); MEAN CELL VOLUME 95.1 fl (80-96); MEAN PLT VOLUME 9.1 fl (7.5-11.1); PLATELET COUNT 621 K/MM3 (134-434); RDW 19.1 % (11.6-15.6); WHITE BLOOD COUNT 23.5 K/mm3 (4.0-10.0)
[2017-02-09] MEDS ORDERED: ALBUTEROL SO4 2.5/IPRATROPIUM 0.5 INH SOL 3 ML VIAL.NEB. NEB ONE ×2 (11:59→14:01)
[2017-02-09 13:15] LABS: BASOPHIL (MANUAL) 1 % (0-2.0); PLATELET ESTIMATE INCREASED (NORMAL)
[2017-02-09 13:16] LABS: ANISOCYTOSIS 1+; METAMYELOCYTE 1 % (0-2); MYELOCYTE 1 % (0-2)
[2017-02-09 13:18] LABS: CPK 44 IU/L (26-192); TROPONIN I < 0.02 ng/ml (0.00-0.05)
[2017-02-09] MEDS ORDERED: ALPRAZolam 0.25 MG TABLET PO ONE (14:37)
[2017-02-09] MEDS ORDERED: ALPRAZolam 0.25 MG TABLET ONE (14:38)
[2017-02-09 14:50] VITALS: BP 133/64; PULSE 90; TEMP 98.2
--- NOTE | 2017-02-09 15:19 | EKG ---
Test Reason : Blood Pressure : / mmHG Vent. Rate : 084 BPM Atrial Rate : 084 BPM P-R Int : 120 ms QRS Dur : 074 ms QT Int : 360 ms P-R-T Axes : 061 031 034 degrees QTc Int : 425 ms NORMAL SINUS RHYTHM MINIMAL VOLTAGE CRITERIA FOR LVH, MAY BE NORMAL VARIANT BORDERLINE ECG WHEN COMPARED WITH ECG OF 25-OCT-2015 22:14, QRS AXIS SHIFTED LEFT CRITERIA FOR ANTERIOR INFARCT ARE NO LONGER PRESENT CRITERIA FOR ANTEROLATERAL INFARCT ARE NO LONGER PRESENT CRITERIA FOR INFERIOR INFARCT ARE NO LONGER PRESENT Confirmed by EUSEBIA GARCIA MD ([id number]) on 02/09/2017 3:18:54 PM Referred By: Confirmed By:EUSEBIA GARCIA MD
== END 2017-02-09 14:58 | disposition home or self-care (01) ==
LOC: JER 11:02
PROC: 3E0F7GC Introduction of Other Therapeutic Substance into Respiratory Tract, Via Natural or Artificial Opening (ICD-10-PCS; principal; 2017-02-09)
PROC: 3E0F7GC Introduction of Other Therapeutic Substance into Respiratory Tract, Via Natural or Artificial Opening (ICD-10-PCS; 2017-02-09)
DX: J43.9 Emphysema, unspecified (principal); F41.9 Anxiety disorder, unspecified; I51.7 Cardiomegaly; R16.2 Hepatomegaly with splenomegaly, not elsewhere classified; C94.6 Myelodysplastic disease, not elsewhere classified; D69.6 Thrombocytopenia, unspecified; Z87.891 Personal history of nicotine dependence
CPT/HCPCS: 36415; 71020-TC; 84484; 85025; 93005; 93010; 99284-25

== ENCOUNTER 2017-06-14 16:35 | Inpatient (IN) | payer OTHER, MEDICARE ==
--- NOTE | 2017-06-14 16:53 | PDOC ---
Rapid Medical Evaluation Time Seen by Provider: 06/14/17 16:48 Medical Evaluation: Allergies Allergy/AdvReac Type Severity Reaction Status Date / Time Sulfa (Sulfonamide Allergy Verified 02/09/17 11:12 Antibiotics) 06/14/17 16:50 I have performed a brief in-person evaluation of this patient. The patient presents with a chief complaint of: SOB Pertinent physical exam findings: PULM: diminished breath sounds bilaterally SKIN: discoloration to fingertips I have ordered the following: CBC, CMP, ABG, NRB, CXR, coags, EKG The patient will proceed to the ED for further evaluation. 06/14/17 16:53 Discharge Disposition - Diagnosis SOB (shortness of breath) - Referrals - Patient Instructions - Post Discharge Activity
[2017-06-14 16:57] VITALS: BMI 21.4
[2017-06-14] MEDS ORDERED: ALBUTEROL SO4 2.5/IPRATROPIUM 0.5 INH SOL 3 ML VIAL.NEB. NEB ONE ×3 (17:24→21:54)
[2017-06-14] MEDS ORDERED: methylPREDNISolone NA SUCC 125 MG/2 ML VIAL ONE ×2 (17:25→18:34)
[2017-06-14] MEDS ORDERED: LEVOFLOXACIN 750 MG IVPB 750 MG/150 ML BAG IVPB ONE ×2 (17:29→18:34)
[2017-06-14 18:04] LABS: VENOUS PH 7.26 (7.32-7.42); VENOUS PO2 38.9 mmHg (28-48)
[2017-06-14 18:06] LABS: VENOUS PC02 67.1 mmHg (38-52)
--- NOTE | 2017-06-14 18:19 | PDOC ---
History of Present Illness - General Chief Complaint: Shortness of Breath Stated Complaint: S.O.B Time Seen by Provider: 06/14/17 16:48 History Source: Patient - History of Present Illness Initial Comments: 06/14/17 18:23 66F PMHx COPD on home O2 (3L), anxiety, hemorrhoids, diverticulosis, cardiomegaly, splenomegaly, hepatomegaly, myeloproliferative disorder, IBS and thrombocytopenia p/w cc of SOB and increased work of breathing. Sxs began approx 15hrs prior to arrival and has been progressing since. +cough with white sputum. +night sweats past 1-2 days. +slight "discomfort" to L anterior chest. Denies N/V, abd pain, diarrhea. Pt also notes swelling to R hand after carrying heavy bags yesterday. 06/14/17 18:50 Past History - Travel Traveled outside of the country in the last 30 days: No Close contact w/someone who was outside of country & ill: No - Past Medical History Allergies/Adverse Reactions: Allergies Allergy/AdvReac Type Severity Reaction Status Date / Time Sulfa (Sulfonamide Allergy Verified 06/14/17 16:57 Antibiotics) Home Medications: Ambulatory Orders Albuterol Sulfate [Proair Hfa -] 1 - 2 inh PO PRN PRN 01/28/14 Aspirin [ASA -] 81 mg PO DAILY 10/30/15 Hydroxyurea [Hydrea] 500 mg PO ASDIR #30 11/03/15 Alprazolam [Xanax] 0.25 mg PO TID PRN 07/21/16 Budesonide/Formeterol Fumarate [SYMBICORT 160/4.5mcg -] 2 puff IH BID inhaler 08/12/16 Trazodone HCl [Desyrel -] 100 mg PO HS tablet 08/12/16 Allopurinol [Zyloprim -] 100 mg PO DAILY 11/14/16 Anagrelide HCl [Agrylin -] 0.5 mg PO Q3H6XD 11/14/16 Docusate Sodium [Colace -] 100 mg PO BID 11/14/16 Linaclotide [Linzess] 72 mcg PO Q2D 02/06/17 Tiotropium Br/Olodaterol HCl [Stiolto Respimat Inhal [place]] 4 gm IH BID #1 mist.inhal 02/09/17 Anemia: No Asthma: No Cancer: Yes (BENIGN ADRENAL MASS) Cardiac Disorders: No CVA: No COPD: Yes CHF: No Dementia: No Diabetes: No GI Disorders: Yes (ibs,diverticulosis;ULCERATIVE/COLITIS/CROHN'S DISEASE) Disorders: Yes (kidney cysts) HTN: Yes Hypercholesterolemia: No Kidney Stones: Yes Liver Disease: No Psychiatric Problems: Yes (ANXIETY) Seizures: No Thyroid Disease: No - Surgical History Abdominal Surgery: Yes (PARTIAL RESECTION OF COLON) Appendectomy: No Cardiac Surgery: No Cholecystectomy: No Lung Surgery: No Neurologic Surgery: No Orthopedic Surgery: No - Immunization History Immunization Up to Date: Yes - Suicide/Smoking/Psychosocial Hx Smoking Status: Yes Smoking History: Former smoker Have you smoked in the past 12 months: No Number of Cigarettes Smoked Daily: 5 If you are a former smoker, when did you quit?: 6 YRS Information on smoking cessation initiated: No 'Breaking Loose' booklet given: 02/20/13 Hx Alcohol Use: No Drug/Substance Use Hx: No Substance Use Type: None Hx Substance Use Treatment: No Respiratory Specific PMHX - Complaint Specific PMHX Other History: COPD Review of Systems - Review of Systems Constitutional: Yes: Night Sweats Respiratory: Yes: Cough, Shortness of Breath, SOB at Rest, Productive cough Cardiac (ROS): Yes: Chest Pain *Physical Exam - Vital Signs Last Vital Signs Temp Pulse Resp BP Pulse Ox 99.8 F H 130 H 20 165/91 96 06/14/17 16:54 06/14/17 16:54 06/14/17 16:54 06/14/17 16:54 06/14/17 18:08 - Physical Exam General Appearance: Yes: Nourished, Appropriately Dressed, Moderate Distress Respiratory/Chest: positive: Respiratory Distress, Accessory Muscle Use, Labored Respiration, Rapid RR, Wheezing Cardiovascular: positive: Regular Rhythm, S1, S2, Tachycardia. negative: Edema Musculoskeletal: positive: Other (swelling to dorsum of R hand) Extremity: positive: Normal Capillary Refill Neurologic: positive: Fully Oriented, Alert, Normal Mood/Affect, Normal Response Heart Score/ECG Review - History History: Slightly suspicious - Electrocardiogram EKG: Normal - Age Age: >/= 65 - Risk Factors Risk Factors Heart Score: No Hx Hypercholesterolemia, No Hx Hypertension, No Hx Diabetes, No Smoking History, No Positive family hx of cardiac disease, No Hx Obesity Based on the list above the patient has:: No risk factors known - Troponin Troponin: </= normal limit - Score Heart Score - Total: 2 #1 ECG reviewed & interpreted by me at: 18:30 General ECG Interpretation: Sinus Rhythm 06/14/17 18:45 sinus tach HR 126, no sig ST/T wave abnormalities ED Treatment Course - LABORATORY CBC & Chemistry Diagram: 06/14/17 18:50 06/14/17 18:50 - ADDITIONAL ORDERS Additional order review: Laboratory Results 06/14/17 17:49 VBG pH 7.26 L POC VBG pCO2 67.1 H* POC VBG pO2 38.9 Mixed VBG HCO3 29.1 H Medical Decision Making - Critical Care Time Total Critical Care Time (minutes): 30 Critical Care Statement: The care of this patient involved high complexity decision making to prevent further life threatening deterioration of the patient 's condition and/or to evaluate & treat vital organ system(s) failure or risk of failure. - Medical Decision Making 06/14/17 18:45 67F hx COPD on home O2 presenting in respiratory distress, tachypneic, accessory muscle use, wheezing/decreased breath sounds. On RA, O2 sat in mid 70s , low 80s on 4L. BiPap initiated, steroids, nebs, abx for COPD exacerbation. EKG sinus tach, nonischemic. Improving on bipap with O2 sat 93-94%. - flu swab, labs, cardiac enzymes - CXR - XR R hand to eval for frx (non-emergently) - admit - will discuss case with hospitalist to determine appropriate bed acuity - likely floor vs telemetry 06/14/17 19:41 Laboratory Tests 06/14/17 06/14/17 17:49 18:50 ABG pCO2 at Pt Temp 51.6 H POC VBG pCO2 67.1 H* Pt improving in bipap, O2 94%, PCO2 improved (though comparing VBG to ABG). 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 Ortiz who accepted pt to his service. Mentioned the swelling of pt's R hand to Dr. Ortiz, will likely undergo non-urgent XR of hand to eval for frx when her condition further improves. Has received nebs, solu-medrol, levaquin for COPD exacerbation. Flu swab pending. Of note, I discussed possibility of ETT with pt if she does not improve, she did not object should it become necessary. I predict that she will continue to improve, but should her condition worsen, she does not seem opposed to ETT, though this would of course need to be re-adressed. 06/14/17 20:03 Son, Laith Saul. Contact # [phone] 06/14/17 21:59 Pt doing well off of bipap, now on 3L NC at 92%, eating cereal. Will sign out to night ED attending pending inpt bed. *DC/Admit/Observation/Transfer Diagnosis at time of Disposition: SOB (shortness of breath), COPD exacerbation - Discharge Dispostion Admit: Yes - Referrals - Patient Instructions - Post Discharge Activity
[2017-06-14] MEDS ORDERED: methylPREDNISolone NA SUCC 125 MG/2 ML VIAL IVPB ONE (18:34)
[2017-06-14] MEDS: ALBUTEROL SO4 2.5/IPRATROPIUM 0.5 INH SOL 3 ML VIAL.NEB. NEB SCH ×6 (18:46→22:24)
[2017-06-14 19:05] LABS: HEMATOCRIT 29.6 % (32.4-45.2); MCH 28.5 pg (25.7-33.7); MCHC 30.4 g/dl (32.0-36.0); MEAN PLT VOLUME 11.5 fl (7.5-11.1); PLATELET COUNT 541 K/MM3 (134-434); RBC 3.15 M/mm3 (3.60-5.2)
[2017-06-14 19:09] LABS: ARTERIAL BLD GAS O2 SATURATION 95.5 % (90-98.9); ARTERIAL BLOOD GAS BASE EXCESS 2.3 meq/l (-2-2); ARTERIAL BLOOD GAS PCO2 51.6 mmHg (35-45); ARTERIAL BLOOD GAS PO2 77.2 mmHg (80-100); ARTERIAL BLOOD GAS pH 7.35 (7.35-7.45); CARBOXYHEMOGLOBIN 1.7 gm% (0.5-2.0)
[2017-06-14 19:11] LABS: WHITE BLOOD COUNT 31.8 K/mm3 (4.0-10.0)
[2017-06-14 19:18] LABS: INR 1.15 (0.82-1.09)
[2017-06-14 20:00] LABS: ALK PHOS 112 U/L (45-117); CALCIUM 8.7 mg/dL (8.5-10.1); CO2 26 mmol/L (21-32); CREATININE 1.7 mg/dL (0.55-1.02); TOT PROT 7.3 g/dl (6.4-8.2)
[2017-06-14 20:22] LABS: ANION GAP 12 (8-16); BILIRUBIN,TOTAL 0.4 mg/dL (0.2-1.0); BLOOD UREA NITROGEN 42 mg/dL (7-18); CHLORIDE 103 mmol/L (98-107); SGPT/ALT 23 U/L (12-78); SODIUM 141 mmol/L (136-145)
[2017-06-14 20:26] LABS: GLUCOSE,RANDOM 154 mg/dL (74-106); POTASSIUM 5.4 mmol/L (3.5-5.1); SGOT/AST 36 U/L (15-37)
[2017-06-14 20:35] LABS: ANISOCYTOSIS 1+
[2017-06-14 20:36] LABS: OVALOCYTE 1+; PLATELET ESTIMATE INCREASED; TEAR DROP CELLS FEW
[2017-06-14] MEDS ORDERED: ALPRAZolam 0.25 MG TABLET PO ONE (21:00)
[2017-06-14] MEDS ORDERED: ALPRAZolam 0.25 MG TABLET ONE (21:16)
[2017-06-14] MEDS ORDERED: methylPREDNISolone NA SUCC 40 MG/1 ML VIAL ONE (21:16)
[2017-06-14] MEDS: methylPREDNISolone NA SUCC 40 MG/1 ML VIAL IVPUSH SCH (21:22)
[2017-06-15] MEDS: BUDESONIDE/FORMETEROL FUMARATE 160/4.5 mcg INHALER IH SCH ×3 (00:27→22:30)
[2017-06-15] MEDS: methylPREDNISolone NA SUCC 40 MG/1 ML VIAL IVPUSH SCH ×4 (02:26→22:28)
[2017-06-15] MEDS: ALBUTEROL SO4 2.5/IPRATROPIUM 0.5 INH SOL 3 ML VIAL.NEB. NEB SCH ×4 (08:00→20:50)
[2017-06-15] MEDS: ASPIRIN 81 MG CHEWABLE TABLETS PO SCH (09:10)
[2017-06-15] MEDS: METOPROLOL SUCCINATE 25 MG TAB.SR.24H (FP) PO SCH (09:10)
[2017-06-15] MEDS: ALPRAZolam 0.25 MG TABLET PO PRN ×3 (09:10→19:58)
[2017-06-15] MEDS ORDERED: LEVOFLOXACIN 500 MG IVPB 500 MG/100 ML BAG IVPB SCH (10:00)
[2017-06-15] MEDS: ALLOPURINOL 100 MG TABLET (FP) PO SCH (11:39)
--- NOTE | 2017-06-15 12:32 | EKG ---
Test Reason : Blood Pressure : / mmHG Vent. Rate : 126 BPM Atrial Rate : 126 BPM P-R Int : 120 ms QRS Dur : 070 ms QT Int : 304 ms P-R-T Axes : 063 040 029 degrees QTc Int : 440 ms SINUS TACHYCARDIA MINIMAL VOLTAGE CRITERIA FOR LVH, MAY BE NORMAL VARIANT BORDERLINE ECG WHEN COMPARED WITH ECG OF 09-FEB-2017 12:14, VENT. RATE HAS INCREASED BY 42 BPM Confirmed by JOSE ROBERTS, EUSEBIA ([id number]) on 06/15/2017 12:31:48 PM Referred By: Confirmed By:EUSEBIA GARCIA MD
[2017-06-15] MEDS ORDERED: ALBUTEROL SO4 0.083% IH SOL 2.5 MG/3 ML VIAL.NEB. NEB PRN (12:45)
--- NOTE | 2017-06-15 12:51 | HP ---
Admitting History and Physical - Primary Care Physician PCP: Piero Ortiz - Admission Chief Complaint: SOB History of Present Illness: 66 F, COPD on home O2 (2 to 3 Liters), MPD, anxiety, hemorrhoids, diverticulosis , cardiomegaly, splenomegaly, hepatomegaly, IBS and thrombocytopenia. I day of progressive SOB. Earlier in the week she felt at her baseline and actually had PFTs on Monday. She has been running errands since its her granddaughter's birthday. No apparent travel history. Reports that some of her grandchildren have URI symptoms. No fever or chills. No hemoptysis but some green tinged sputum. Reports some right hand swelling/discomfort due to carrying bags. History Source: Patient Limitations to Obtaining History: No Limitations - Past Medical History Cardiovascular: Yes: HTN. No: AFIB, Aneurysm, Aortic Insufficiency, Aortic Stenosis, CAD, CHF, Deep Vein Thrombosis, Hyperlipdemia, [place], Mitral Insufficiency, Mitral Stenosis, Murmur, Pulmonary Hypertension, Other Pulmonary: Yes: COPD. No: Asthma, Bronchitis, Cancer, O2 Dependent, Pneumonia, Previously Intubated, Pulmonary Embolus, Pulmonary Fibrosis, Sleep Apnea, Other Gastrointestinal: Yes: Constipation, Other (ADRENAL ADENOMA, SEVERE DIVERTICULOSIS AND DIVERTICULITIS) Hepatobiliary: Yes: Other (HAD WORKUP FOR PORTAL HTN WHICH WAS NEGATIVE ( INCLUDED PORTAL PRESSURE MEASUREMENTS)) Renal/: Yes: Renal Inusuff Heme/Onc: Yes: Thrombocytopenia. No: Anemia, B12 Deficiency, Bleeding Disorder , Cancer, Current Chemotherapy, Current Radiation Therapy, Hemochromatosis, Hypercoaguable State, Myeloproliferative Synd, Sickle Cell Disease, Sickle Cell Trait, Other Psych: Yes: Anxiety. No: Addictions, Bipolar, Depression, Panic, Psychosis, Schizophrenia, Other - Past Surgical History Past Surgical History: Yes: Colonoscopy, Upper Endoscopy - Smoking History Smoking history: Former smoker Have you smoked in the past 12 months: No Aproximately how many cigarettes per day: 5 If you are a former smoker, when did you quit?: 6 YRS - Alcohol/Substance Use Hx Alcohol Use: No History of Substance Use: reports: None - Social History ADL: Independent History of Recent Travel: No Home Medications - Allergies Allergies/Adverse Reactions: Allergies Allergy/AdvReac Type Severity Reaction Status Date / Time Sulfa (Sulfonamide Allergy Verified 06/14/17 16:57 Antibiotics) - Home Medications Home Medications: Ambulatory Orders Albuterol Sulfate [Proair Hfa -] 1 - 2 inh PO PRN PRN 01/28/14 Aspirin [ASA -] 81 mg PO DAILY 10/30/15 Hydroxyurea [Hydrea] 500 mg PO ASDIR #30 11/03/15 Alprazolam [Xanax] 0.25 mg PO TID PRN 07/21/16 Budesonide/Formeterol Fumarate [SYMBICORT 160/4.5mcg -] 2 puff IH BID inhaler 08/12/16 Trazodone HCl [Desyrel -] 100 mg PO HS tablet 08/12/16 Allopurinol [Zyloprim -] 100 mg PO DAILY 11/14/16 Anagrelide HCl [Agrylin -] 0.5 mg PO Q3H6XD 11/14/16 Docusate Sodium [Colace -] 100 mg PO BID 11/14/16 Linaclotide [Linzess] 72 mcg PO Q2D 02/06/17 Tiotropium Br/Olodaterol HCl [Stiolto Respimat Inhal [place]] 4 gm IH BID #1 mist.inhal 02/09/17 Review of Systems - Review of Systems Constitutional: reports: Malaise. denies: Chills, Fever, Night Sweats Eyes: reports: No Symptoms HENT: reports: No Symptoms Neck: reports: No Symptoms Cardiovascular: reports: Shortness of Breath. denies: Chest Pain, Palpitations Respiratory: reports: Cough, SOB, SOB on Exertion, Wheezing. denies: Hemoptysis Gastrointestinal: reports: No Symptoms Genitourinary: reports: No Symptoms Musculoskeletal: reports: No Symptoms Integumentary: reports: No Symptoms Neurological: reports: No Symptoms Endocrine: reports: No Symptoms Hematology/Lymphatic: reports: No Symptoms Psychiatric: reports: No Symptoms Physical Examination Vital Signs: Vital Signs Temperature 99.2 F 06/15/17 09:00 Pulse Rate 103 H 06/15/17 09:00 Respiratory Rate 18 06/15/17 09:00 Blood Pressure 147/77 06/15/17 09:00 O2 Sat by Pulse Oximetry (%) 98 06/15/17 08:00 Constitutional: Yes: Moderate Distress, Thin Eyes: Yes: Conjunctiva Clear, EOM Intact HENT: Yes: Atraumatic, Normocephalic Neck: Yes: Supple, Trachea Midline Cardiovascular: Yes: Regular Rate and Rhythm Respiratory: Yes: Accessory Muscle Use, Cough, Diminished, On BiPap, Rhonchi, Tachypnea, Wheezes. No: Rales, Stridor Gastrointestinal: Yes: Normal Bowel Sounds, Soft ...Rectal Exam: Yes: Deferred Renal/: Yes: WNL Musculoskeletal: Yes: WNL Extremities: Yes: WNL Edema: No Peripheral Pulses WNL: Yes Integumentary: Yes: WNL Wound/Incision: Yes: Clean/Dry, Well Approximated Neurological: Yes: WNL, Alert, Oriented ...Motor Strength: WNL Psychiatric: Yes: WNL, Alert, Oriented Labs: CBC, BMP 06/14/17 18:50 06/14/17 18:50 Imaging - Results Chest X-ray: Report Reviewed, Image Reviewed Problem List - Problems (1) COPD exacerbation Code(s): J44.1 - CHRONIC OBSTRUCTIVE PULMONARY DISEASE W (ACUTE) EXACERBATION (2) SOB (shortness of breath) Code(s): R06.02 - SHORTNESS OF BREATH (3) Anemia Code(s): D64.9 - ANEMIA, UNSPECIFIED (4) Anxiety Code(s): F41.9 - ANXIETY DISORDER, UNSPECIFIED (5) Bronchitis Code(s): J40 - BRONCHITIS, NOT SPECIFIED ACUTE OR CHRONIC (6) Bronchitis, acute Code(s): J20.9 - ACUTE BRONCHITIS, UNSPECIFIED (7) COPD (chronic obstructive pulmonary disease) with acute bronchitis Code(s): J44.0 - CHRONIC OBSTRUCTIVE PULMON DISEASE W ACUTE LOWER RESP INFCT (8) Diverticulosis of colon Code(s): K57.30 - DVRTCLOS OF LG INT W/O PERFORATION OR ABSCESS W/O BLEEDING (9) Essential thrombocytosis Code(s): D47.3 - ESSENTIAL (HEMORRHAGIC) THROMBOCYTHEMIA (10) Hemorrhoids Code(s): K64.9 - UNSPECIFIED HEMORRHOIDS (11) IBS (irritable bowel syndrome) Code(s): K58.9 - IRRITABLE BOWEL SYNDROME WITHOUT DIARRHEA (12) Myeloproliferative disorder Code(s): D47.1 - CHRONIC MYELOPROLIFERATIVE DISEASE (13) Stricture of sigmoid colon Code(s): K56.69 - OTHER INTESTINAL OBSTRUCTION * DO NOT USE * Assessment[facility]Plan [facility] Monitor off ABX NIPPV Support as needed SCDs O2 as needed Continue home meds. Dr Briggs
[2017-06-15] MEDS: ROFLUMILAST 500 MCG TABLET PO SCH (13:44)
[2017-06-15] MEDS: BISACODYL 10 MG SUPP.RECT RC ONE ×2 (18:42→20:44)
[2017-06-15] MEDS ORDERED: traZODone HCL 100 MG TABLET (FP) PO SCH (22:00)
[2017-06-15] MEDS ORDERED: traZODone HCL 50 MG TABLET (FP) ONE (22:20)
[2017-06-15] MEDS: ANAGRELIDE HCL 1 MG PO SCH (22:29)
[2017-06-15] MEDS ORDERED: traZODone HCL 50 MG TABLET (FP) PO SCH (22:38)
[2017-06-15] MEDS ORDERED: PT OWN MED DRAWER 7, Y5N ONE (22:41)
[2017-06-15] MEDS: traZODone HCL 50 MG TABLET (FP) PO SCH (22:52)
[2017-06-16] MEDS: methylPREDNISolone NA SUCC 40 MG/1 ML VIAL IVPUSH SCH ×4 (02:43→20:39)
[2017-06-16] MEDS ORDERED: PT OWN MED DRAWER 7, Y5N ONE ×4 (05:50→23:42)
[2017-06-16] MEDS: ANAGRELIDE HCL 1 MG PO SCH ×3 (06:20→23:35)
[2017-06-16] MEDS: ALPRAZolam 0.25 MG TABLET PO PRN ×3 (07:08→20:29)
[2017-06-16] MEDS: ALBUTEROL SO4 2.5/IPRATROPIUM 0.5 INH SOL 3 ML VIAL.NEB. NEB SCH ×4 (07:50→20:26)
[2017-06-16] MEDS: BUDESONIDE/FORMETEROL FUMARATE 160/4.5 mcg INHALER IH SCH ×2 (09:53→23:34)
[2017-06-16] MEDS: ROFLUMILAST 500 MCG TABLET PO SCH (09:55)
[2017-06-16] MEDS: HYDROXYUREA 500 MG CAPSULE PO SCH (09:55)
[2017-06-16] MEDS: METOPROLOL SUCCINATE 25 MG TAB.SR.24H (FP) PO SCH (09:55)
[2017-06-16] MEDS: ASPIRIN 81 MG CHEWABLE TABLETS PO SCH (09:55)
[2017-06-16] MEDS: ALLOPURINOL 100 MG TABLET (FP) PO SCH (12:07)
--- NOTE | 2017-06-16 13:43 | PN ---
Progress Note, Physician Chief Complaint: COUGH/SOB History of Present Illness: REVIEWED - Current Medication List Current Medications: Active Medications Albuterol Sulfate (Ventolin 0.083% Nebulizer Soln -) 1 amp NEB Q4H PRN PRN Reason: SHORT OF BREATH/WHEEZING Albuterol/Ipratropium (Duoneb -) 1 amp NEB RQID [facility] Last Admin: 06/16/17 12:30 Dose: 1 amp Allopurinol (Zyloprim -) 100 mg PO DAILY [facility] Last Admin: 06/16/17 12:07 Dose: 100 mg Alprazolam (Xanax -) 0.25 mg PO TID PRN Last Admin: 06/16/17 07:08 Dose: 0.25 mg Anagrelide HCl (Agrylin) 1 mg PO TID [facility] Last Admin: 06/16/17 06:20 Dose: 1 mg Aspirin (Asa -) 81 mg PO DAILY [facility] Last Admin: 06/16/17 09:55 Dose: 81 mg Budesonide/Formoterol Fumarate (Symbicort 160/4.5mcg -) 2 puff IH BID [facility] Last Admin: 06/16/17 09:53 Dose: 2 puff Hydroxyurea (Hydrea -) 500 mg PO MoWeFr@1000 [facility] Last Admin: 06/16/17 09:55 Dose: 500 mg Levofloxacin (Levaquin 500 Mg Premixed Ivpb -) 500 mg in 100 mls @ 100 mls/hr IVPB DAILY [facility] Methylprednisolone Sodium Succinate (Solu-Medrol -) 40 mg IVPUSH Q6H-IV [facility] Last Admin: 06/16/17 09:55 Dose: 40 mg Metoprolol Succinate (Toprol Xl -) 12.5 mg PO DAILY [facility] Last Admin: 06/16/17 09:55 Dose: 12.5 mg Roflumilast (Daliresp -) 500 mcg PO DAILY [facility] Last Admin: 06/16/17 09:55 Dose: 500 mcg Trazodone HCl (Desyrel -) 100 mg PO HS [facility] Last Admin: 06/15/17 22:52 Dose: 100 mg - Objective Vital Signs: Vital Signs Temperature 98.0 F 06/16/17 09:00 Pulse Rate 149 H 06/16/17 13:38 Respiratory Rate 20 06/16/17 10:00 Blood Pressure 109/65 06/16/17 13:38 O2 Sat by Pulse Oximetry (%) 97 06/16/17 10:00 Constitutional: Yes: Anxious Eyes: Yes: EOM Intact HENT: Yes: Normocephalic Neck: Yes: Trachea Midline Cardiovascular: Yes: Regular Rate and Rhythm, S1, S2 Respiratory: Yes: Diminished Gastrointestinal: Yes: Normal Bowel Sounds Edema: RUE: 1+, LLE: 1+ Neurological: Yes: Alert Labs: CBC, BMP 06/14/17 18:50 06/14/17 18:50 INR, PTT INR 1.15 (0.82-1.09) H 06/14/17 18:50 - ....Imaging Chest X-ray: Report Reviewed, Image Reviewed EKG: Report Reviewed, Image Reviewed Assessment/Plan Scheduled DuoNeb Daliresp Symbicort Heme evaluation pending ABX resumed NIPPV Support as needed SCDs O2 as needed Continue home meds. Sandeep LYNN MD
[2017-06-16] MEDS: LEVOFLOXACIN 250 MG IVPB 250 MG/50 ML MG IVPB SCH (15:35)
--- NOTE | 2017-06-16 21:42 | CONSULT ---
Consult - text type - Consultation Consultation Note: PAtient seen and examined 06/15/17 and today 66 F, COPD on home O2 (2 to 3 Liters), MPD, anxiety, hemorrhoids, diverticulosis , cardiomegaly, splenomegaly, hepatomegaly, IBS and thrombocytopenia comes in with 1 day of progressive SOB. Earlier in the week she felt at her baseline and actually had PFTs on Monday. S No fever or chills. No hemoptysis but some green tinged sputum. - Past Medical History Cardiovascular: Yes: HTN. No: AFIB, Aneurysm, Aortic Insufficiency, Aortic Stenosis, CAD, CHF, Deep Vein Thrombosis, Hyperlipdemia, [place], Mitral Insufficiency, Mitral Stenosis, Murmur, Pulmonary Hypertension, Other Pulmonary: Yes: COPD. No: Asthma, Bronchitis, Cancer, O2 Dependent, Pneumonia, Previously Intubated, Pulmonary Embolus, Pulmonary Fibrosis, Sleep Apnea, Other Gastrointestinal: Yes: Constipation, Other (ADRENAL ADENOMA, SEVERE DIVERTICULOSIS AND DIVERTICULITIS) Hepatobiliary: Yes: Other (HAD WORKUP FOR PORTAL HTN WHICH WAS NEGATIVE ( INCLUDED PORTAL PRESSURE MEASUREMENTS)) Renal/: Yes: Renal Inusuff Heme/Onc: Yes: Thrombocytopenia. No: Anemia, B12 Deficiency, Bleeding Disorder , Cancer, Current Chemotherapy, Current Radiation Therapy, Hemochromatosis, Hypercoaguable State, Myeloproliferative Synd, Sickle Cell Disease, Sickle Cell Trait, Other Psych: Yes: Anxiety. No: Addictions, Bipolar, Depression, Panic, Psychosis, Schizophrenia, Other - Past Surgical History Past Surgical History: Yes: Colonoscopy, Upper Endoscopy - Smoking History Smoking history: Former smoker - Social History ADL: Independent Home Medications - Allergies Allergies/Adverse Reactions: Allergies Allergy/AdvReac Type Severity Reaction Status Date / Time Sulfa (Sulfonamide Allergy Verified 06/14/17 16:57 Antibiotics) - Home Medications Home Medications: Ambulatory Orders Albuterol Sulfate [Proair Hfa -] 1 - 2 inh PO PRN PRN 01/28/14 Aspirin [ASA -] 81 mg PO DAILY 10/30/15 Hydroxyurea [Hydrea] 500 mg PO ASDIR #30 11/03/15 Alprazolam [Xanax] 0.25 mg PO TID PRN 07/21/16 Budesonide/Formeterol Fumarate [SYMBICORT 160/4.5mcg -] 2 puff IH BID inhaler 08/12/16 Trazodone HCl [Desyrel -] 100 mg PO HS tablet 08/12/16 Allopurinol [Zyloprim -] 100 mg PO DAILY 11/14/16 Anagrelide HCl [Agrylin -] 0.5 mg PO Q3H6XD 11/14/16 Docusate Sodium [Colace -] 100 mg PO BID 11/14/16 Linaclotide [Linzess] 72 mcg PO Q2D 02/06/17 Tiotropium Br/Olodaterol HCl [Stiolto Respimat Inhal [place]] 4 gm IH BID #1 mist.inhal 02/09/17 Physical Examination Vital Signs: Vital Signs Temperature 99.2 F 06/15/17 09:00 Pulse Rate 103 H 06/15/17 09:00 Respiratory Rate 18 06/15/17 09:00 Blood Pressure 147/77 06/15/17 09:00 O2 Sat by Pulse Oximetry (%) 98 06/15/17 08:00 Neck: Yes: Supple, Trachea Midline Cardiovascular: Yes: Regular Rate and Rhythm Respiratory: Yes: Accessory Muscle Use, Cough, Diminished, On BiPap, Rhonchi, Tachypnea, Wheezes. No: Rales, Stridor Gastrointestinal: Yes: Normal Bowel Sounds, Soft Renal/: Yes: WNL Musculoskeletal: Yes: WNL Extremities: Yes: WNL Peripheral Pulses WNL: Yes Integumentary: Yes: WNL Neurological: Yes: WNL, Alert, Oriented ...Motor Strength: WNL Labs/MEds reviewed Assessment/Plan 67 y/o patient with MPD, comes in with COPD exacerbation. On Home O2 at baseline [place] reasonably well controlled continue hydrea/anagrelide/aspirin steroids/nebs/antibiotics per pulmonary
[2017-06-16] MEDS: traZODone HCL 50 MG TABLET (FP) PO SCH (23:32)
[2017-06-17] MEDS: methylPREDNISolone NA SUCC 40 MG/1 ML VIAL IVPUSH SCH ×4 (03:25→21:33)
[2017-06-17] MEDS: ANAGRELIDE HCL 1 MG PO SCH ×3 (06:04→21:33)
[2017-06-17] MEDS: ALBUTEROL SO4 2.5/IPRATROPIUM 0.5 INH SOL 3 ML VIAL.NEB. NEB SCH ×4 (08:00→20:53)
[2017-06-17] MEDS: ALPRAZolam 0.25 MG TABLET PO PRN ×3 (08:39→21:37)
[2017-06-17] MEDS ORDERED: PT OWN MED DRAWER 7, Y5N ONE (09:14)
[2017-06-17] MEDS: LINZESS 72 MCG PO SCH (09:18)
[2017-06-17] MEDS: BUDESONIDE/FORMETEROL FUMARATE 160/4.5 mcg INHALER IH SCH ×2 (10:23→21:33)
[2017-06-17] MEDS: ROFLUMILAST 500 MCG TABLET PO SCH (10:23)
[2017-06-17] MEDS: ASPIRIN 81 MG CHEWABLE TABLETS PO SCH (10:24)
[2017-06-17] MEDS: LEVOFLOXACIN 250 MG IVPB 250 MG/50 ML MG IVPB SCH (10:24)
[2017-06-17] MEDS: METOPROLOL SUCCINATE 25 MG TAB.SR.24H (FP) PO SCH (10:24)
[2017-06-17] MEDS: ALLOPURINOL 100 MG TABLET (FP) PO SCH ×2 (10:25→11:54)
--- NOTE | 2017-06-17 13:19 | PN ---
Progress Note (short form) - Note Progress Note: Still with SOB. Has not had a bowel movement. Used NIPPV overnight. Intake & Output 06/14/17 06/15/17 06/16/17 06/17/17 23:59 23:59 23:59 23:59 Intake Total 965 650 365 Balance 965 650 365 Weight 117 lb 117 lb 8 oz Last Vital Signs Temp Pulse Resp BP Pulse Ox 98.5 F 108 H 19 136/88 100 06/17/17 10:33 06/17/17 10:33 06/17/17 10:33 06/17/17 10:33 06/17/17 09:00 Active Medications Albuterol Sulfate (Ventolin 0.083% Nebulizer Soln -) 1 amp NEB Q4H PRN PRN Reason: SHORT OF BREATH/WHEEZING Albuterol/Ipratropium (Duoneb -) 1 amp NEB RQID [facility] Last Admin: 06/17/17 11:44 Dose: 1 amp Allopurinol (Zyloprim -) 100 mg PO DAILY [facility] Last Admin: 06/17/17 11:54 Dose: 100 mg Alprazolam (Xanax -) 0.25 mg PO TID PRN Last Admin: 06/17/17 08:39 Dose: 0.25 mg Anagrelide HCl (Agrylin) 1 mg PO TID [facility] Last Admin: 06/17/17 06:04 Dose: 1 mg Aspirin (Asa -) 81 mg PO DAILY [facility] Last Admin: 06/17/17 10:24 Dose: 81 mg Budesonide/Formoterol Fumarate (Symbicort 160/4.5mcg -) 2 puff IH BID [facility] Last Admin: 06/17/17 10:23 Dose: 2 puff Hydroxyurea (Hydrea -) 500 mg PO MoWeFr@1000 [facility] Last Admin: 06/16/17 09:55 Dose: 500 mg Levofloxacin (Levaquin 250 Mg Premixed Ivpb -) 250 mg in 50 mls @ 100 mls/hr IVPB DAILY [facility] Last Admin: 06/17/17 10:24 Dose: 100 mls/hr Methylprednisolone Sodium Succinate (Solu-Medrol -) 40 mg IVPUSH Q6H-IV [facility] Last Admin: 06/17/17 09:19 Dose: 40 mg Metoprolol Succinate (Toprol Xl -) 12.5 mg PO DAILY [facility] Last Admin: 06/17/17 10:24 Dose: 12.5 mg Linzess 72 Mcg (Capsule) 1 each PO DAILY [facility] Last Admin: 06/17/17 09:18 Dose: 1 each Roflumilast (Daliresp -) 500 mcg PO DAILY [facility] Last Admin: 06/17/17 10:23 Dose: 500 mcg Trazodone HCl (Desyrel -) 100 mg PO [facility] Last Admin: 06/16/17 23:32 Dose: 100 mg Constitutional: Yes: Anxious Eyes: Yes: EOM Intact HENT: Yes: Normocephalic Neck: Yes: Trachea Midline Cardiovascular: Yes: Regular Rate and Rhythm, S1, S2 Respiratory: Yes: Diminished Gastrointestinal: Yes: Normal Bowel Sounds Edema: RUE: 1+, LLE: 1+ Neurological: Yes: Alert Labs: Assessment/Plan DuoNeb Daliresp Symbicort ABX resumed NIPPV Support as needed SCDs O2 as needed Carlita Briggs Problem List - Problems (1) COPD exacerbation Code(s): J44.1 - CHRONIC OBSTRUCTIVE PULMONARY DISEASE W (ACUTE) EXACERBATION (2) SOB (shortness of breath) Code(s): R06.02 - SHORTNESS OF BREATH (3) Anemia Code(s): D64.9 - ANEMIA, UNSPECIFIED (4) Anxiety Code(s): F41.9 - ANXIETY DISORDER, UNSPECIFIED (5) Bronchitis Code(s): J40 - BRONCHITIS, NOT SPECIFIED ACUTE OR CHRONIC (6) Bronchitis, acute Code(s): J20.9 - ACUTE BRONCHITIS, UNSPECIFIED (7) COPD (chronic obstructive pulmonary disease) with acute bronchitis Code(s): J44.0 - CHRONIC OBSTRUCTIVE PULMON DISEASE W ACUTE LOWER RESP INFCT (8) Diverticulosis of colon Code(s): K57.30 - DVRTCLOS OF LG INT W/O PERFORATION OR ABSCESS W/O BLEEDING (9) Essential thrombocytosis Code(s): D47.3 - ESSENTIAL (HEMORRHAGIC) THROMBOCYTHEMIA (10) Hemorrhoids Code(s): K64.9 - UNSPECIFIED HEMORRHOIDS (11) IBS (irritable bowel syndrome) Code(s): K58.9 - IRRITABLE BOWEL SYNDROME WITHOUT DIARRHEA (12) Myeloproliferative disorder Code(s): D47.1 - CHRONIC MYELOPROLIFERATIVE DISEASE (13) Stricture of sigmoid colon Code(s): K56.69 - OTHER INTESTINAL OBSTRUCTION * DO NOT USE *
[2017-06-17] MEDS: MAG HYDROX/AL HYDROX/SIMETH 30 ML UNIT-DOSE CUP PO PRN (19:14)
[2017-06-17] MEDS: traZODone HCL 50 MG TABLET (FP) PO SCH (21:33)
[2017-06-18] MEDS: methylPREDNISolone NA SUCC 40 MG/1 ML VIAL IVPUSH SCH ×4 (03:02→21:45)
[2017-06-18] MEDS: ANAGRELIDE HCL 1 MG PO SCH ×3 (06:21→21:47)
[2017-06-18] MEDS: ALPRAZolam 0.25 MG TABLET PO PRN ×3 (06:24→22:02)
[2017-06-18] MEDS ORDERED: PT OWN MED DRAWER 7, Y5N ONE ×2 (07:44→09:34)
[2017-06-18 08:18] LABS: INR 1.2 (0.82-1.09); PROTHROMBIN TIME (PATIENT) 13.6 SEC (9.98-11.88)
[2017-06-18 08:19] LABS: ALBUMIN 3.1 g/dl (3.4-5.0); ALK PHOS 81 U/L (45-117); ANION GAP 7 (8-16); BILIRUBIN,TOTAL 0.2 mg/dL (0.2-1.0); BLOOD UREA NITROGEN 64 mg/dL (7-18); CHLORIDE 105 mmol/L (98-107); CO2 29 mmol/L (21-32); CREATININE 1.9 mg/dL (0.55-1.02); GLUCOSE,RANDOM 117 mg/dL (74-106); POTASSIUM 5.1 mmol/L (3.5-5.1); SGOT/AST 9 U/L (15-37); SGPT/ALT 21 U/L (12-78); SODIUM 141 mmol/L (136-145); TOT PROT 5.9 g/dl (6.4-8.2)
[2017-06-18 08:21] LABS: ACTIVATED PTT 25.6 SECONDS (26.9-34.4)
[2017-06-18] MEDS: ALBUTEROL SO4 2.5/IPRATROPIUM 0.5 INH SOL 3 ML VIAL.NEB. NEB SCH ×4 (08:30→21:10)
[2017-06-18 08:52] LABS: HEMATOCRIT 26.9 % (32.4-45.2); HEMOGLOBIN 8.1 GM/dL (10.7-15.3); MCH 27.8 pg (25.7-33.7); MCHC 30.2 g/dl (32.0-36.0); MEAN CELL VOLUME 92.2 fl (80-96); MEAN PLT VOLUME 10.3 fl (7.5-11.1); PLATELET COUNT 512 K/MM3 (134-434); RBC 2.92 M/mm3 (3.60-5.2); RDW 20.2 % (11.6-15.6)
[2017-06-18 08:56] LABS: WHITE BLOOD COUNT 45.2 K/mm3 (4.0-10.0)
[2017-06-18 10:58] LABS: ANISOCYTOSIS 2+; MACROCYTOSIS 0; OVALOCYTE 2+; PLATELET ESTIMATE INCREASED; TEAR DROP CELLS 1+
[2017-06-18] MEDS: LEVOFLOXACIN 250 MG IVPB 250 MG/50 ML MG IVPB SCH (11:28)
[2017-06-18] MEDS: ALLOPURINOL 100 MG TABLET (FP) PO SCH (11:30)
[2017-06-18] MEDS: METOPROLOL SUCCINATE 25 MG TAB.SR.24H (FP) PO SCH (11:31)
[2017-06-18] MEDS: ROFLUMILAST 500 MCG TABLET PO SCH (11:32)
[2017-06-18] MEDS: BUDESONIDE/FORMETEROL FUMARATE 160/4.5 mcg INHALER IH SCH ×2 (11:32→21:47)
[2017-06-18] MEDS: ASPIRIN 81 MG CHEWABLE TABLETS PO SCH (11:32)
[2017-06-18] MEDS: LINZESS 72 MCG PO SCH (11:34)
--- NOTE | 2017-06-18 12:47 | PN ---
Progress Note (short form) - Note Progress Note: Still with SOB, but feels slightly better today. (+) BM, but not her normal movement. Used NIPPV overnight. Labs noted: WBC 46K Intake & Output 06/15/17 06/16/17 06/17/17 06/18/17 23:59 23:59 23:59 23:59 Intake Total 154 781 9951 240 Balance 562 268 2415 240 Weight 117 lb 8 oz Last Vital Signs Temp Pulse Resp BP Pulse Ox 98.3 F 84 18 128/60 97 06/18/17 06:00 06/18/17 06:00 06/18/17 06:00 06/18/17 06:00 06/18/17 03:38 Active Medications Al Hydroxide/Mg Hydroxide (Mylanta Oral Suspension -) 30 ml PO Q6H PRN PRN Reason: INDIGESTION Last Admin: 06/17/17 19:14 Dose: 30 ml Albuterol Sulfate (Ventolin 0.083% Nebulizer Soln -) 1 amp NEB Q4H PRN PRN Reason: SHORT OF BREATH/WHEEZING Albuterol/Ipratropium (Duoneb -) 1 amp NEB RQID [facility] Last Admin: 06/18/17 12:00 Dose: 1 amp Allopurinol (Zyloprim -) 100 mg PO DAILY [facility] Last Admin: 06/18/17 11:30 Dose: 100 mg Alprazolam (Xanax -) 0.25 mg PO TID PRN Last Admin: 06/18/17 06:24 Dose: 0.25 mg Anagrelide HCl (Agrylin) 1 mg PO TID [facility] Last Admin: 06/18/17 06:21 Dose: 1 mg Aspirin (Asa -) 81 mg PO DAILY [facility] Last Admin: 06/18/17 11:32 Dose: 81 mg Budesonide/Formoterol Fumarate (Symbicort 160/4.5mcg -) 2 puff IH BID [facility] Last Admin: 06/18/17 11:32 Dose: 2 puff Hydroxyurea (Hydrea -) 500 mg PO MoWeFr@1000 [facility] Last Admin: 06/16/17 09:55 Dose: 500 mg Levofloxacin (Levaquin 250 Mg Premixed Ivpb -) 250 mg in 50 mls @ 100 mls/hr IVPB DAILY [facility] Last Admin: 06/18/17 11:28 Dose: 100 mls/hr Methylprednisolone Sodium Succinate (Solu-Medrol -) 40 mg IVPUSH Q6H-IV [facility] Last Admin: 06/18/17 11:28 Dose: 40 mg Metoprolol Succinate (Toprol Xl -) 12.5 mg PO DAILY [facility] Last Admin: 06/18/17 11:31 Dose: 12.5 mg Linzess 72 Mcg (Capsule) 1 each PO DAILY [facility] Last Admin: 06/18/17 11:34 Dose: 1 each Roflumilast (Daliresp -) 500 mcg PO DAILY [facility] Last Admin: 06/18/17 11:32 Dose: 500 mcg Trazodone HCl (Desyrel -) 100 mg PO HS [facility] Last Admin: 06/17/17 21:33 Dose: 100 mg Constitutional: Yes: Awake and alert, Less SOB Eyes: Yes: EOM Intact HENT: Yes: Normocephalic Neck: Yes: Trachea Midline Cardiovascular: Yes: Regular Rate and Rhythm, S1, S2 Respiratory: Yes: Diminished Gastrointestinal: Yes: Normal Bowel Sounds Edema: RUE: 1+, LLE: 1+ Neurological: Yes: Alert Labs: Laboratory Results - last 24 hr 06/18/17 06/18/17 06/18/17 07:05 07:05 07:05 WBC 45.2 H* D RBC 2.92 L Hgb 8.1 L Hct 26.9 L MCV 92.2 MCH 27.8 MCHC 30.2 L RDW 20.2 H Plt Count 512 H MPV 10.3 D Neutrophils % No Result Required. Neutrophils % (Manual) 96.0 H* Band Neutrophils % 0.0 Lymphocytes % No Result Required. Lymphocytes % (Manual) 2.0 L D Monocytes % (Manual) 1 L Eosinophils % (Manual) 0.0 D Basophils % (Manual) 0.0 Myelocytes % (Man) 0 Metamyelocytes 0 Hypochromia 0 Platelet Estimate Increased Polychromasia 0 Poikilocytosis 3+ Anisocytosis 2+ Microcytosis 2+ Macrocytosis 0 Tear Drop Cells 1+ Ovalocytes 2+ PT with INR 13.60 H INR 1.20 H PTT (Actin FS) 25.6 L Sodium 141 Potassium 5.1 Chloride 105 Carbon Dioxide 29 Anion Gap 7 L BUN 64 H Creatinine 1.9 H Creat Clearance w eGFR 26.37 Random Glucose 117 H Calcium 8.0 L Total Bilirubin 0.2 D AST 9 L ALT 21 Alkaline Phosphatase 81 Total Protein 5.9 L Albumin 3.1 L Assessment/Plan DuoNeb Daliresp Symbicort ABX resumed NIPPV support as needed SCDs O2 as needed Carlita Briggs Problem List - Problems (1) COPD exacerbation Code(s): J44.1 - CHRONIC OBSTRUCTIVE PULMONARY DISEASE W (ACUTE) EXACERBATION (2) SOB (shortness of breath) Code(s): R06.02 - SHORTNESS OF BREATH (3) Anemia Code(s): D64.9 - ANEMIA, UNSPECIFIED (4) Anxiety Code(s): F41.9 - ANXIETY DISORDER, UNSPECIFIED (5) Bronchitis Code(s): J40 - BRONCHITIS, NOT SPECIFIED ACUTE OR CHRONIC (6) Bronchitis, acute Code(s): J20.9 - ACUTE BRONCHITIS, UNSPECIFIED (7) COPD (chronic obstructive pulmonary disease) with acute bronchitis Code(s): J44.0 - CHRONIC OBSTRUCTIVE PULMON DISEASE W ACUTE LOWER RESP INFCT (8) Diverticulosis of colon Code(s): K57.30 - DVRTCLOS OF LG INT W/O PERFORATION OR ABSCESS W/O BLEEDING (9) Essential thrombocytosis Code(s): D47.3 - ESSENTIAL (HEMORRHAGIC) THROMBOCYTHEMIA (10) Hemorrhoids Code(s): K64.9 - UNSPECIFIED HEMORRHOIDS (11) IBS (irritable bowel syndrome) Code(s): K58.9 - IRRITABLE BOWEL SYNDROME WITHOUT DIARRHEA (12) Myeloproliferative disorder Code(s): D47.1 - CHRONIC MYELOPROLIFERATIVE DISEASE (13) Stricture of sigmoid colon Code(s): K56.69 - OTHER INTESTINAL OBSTRUCTION * DO NOT USE *
[2017-06-18] MEDS: MAG HYDROX/AL HYDROX/SIMETH 30 ML UNIT-DOSE CUP PO PRN (16:41)
--- NOTE | 2017-06-18 19:08 | PN ---
Progress Note (short form) - Note Progress Note: Patient seen and examined denies any specific complaints Last Vital Signs Temp Pulse Resp BP Pulse Ox 98.3 F 84 20 128/60 100 06/18/17 06:00 06/18/17 06:00 06/18/17 09:00 06/18/17 06:00 06/18/17 09:00 Cor: RSR, No murmurs, No gallops Lungs: decreased at bases Abd: Soft, Normal bowel sounds, No organomegaly Ext:No significant edema Abnormal Lab Results 06/18/17 06/18/17 06/18/17 07:05 07:05 07:05 WBC 45.2 H* D RBC 2.92 L Hgb 8.1 L Hct 26.9 L MCHC 30.2 L RDW 20.2 H Plt Count 512 H Neutrophils % (Manual) 96.0 H* Lymphocytes % (Manual) 2.0 L D Monocytes % (Manual) 1 L PT with INR 13.60 H INR 1.20 H PTT (Actin FS) 25.6 L Anion Gap 7 L BUN 64 H Creatinine 1.9 H Random Glucose 117 H Calcium 8.0 L AST 9 L Total Protein 5.9 L Albumin 3.1 L Active Medications Generic Name Dose Route Start Last Admin Trade Name Freq PRN Reason Stop Dose Admin Al Hydroxide/Mg Hydroxide 30 ml 06/17/17 18:36 06/18/17 16:41 Mylanta Oral Suspension - PO 30 ml Q6H PRN Administration INDIGESTION Albuterol Sulfate 1 amp 06/15/17 12:45 Ventolin 0.083% Nebulizer Soln - NEB Q4H PRN SHORT OF BREATH/WHEEZING Albuterol/Ipratropium 1 amp 06/15/17 08:00 06/18/17 15:35 Duoneb - NEB 1 amp RQID [facility]I Administration Allopurinol 100 mg 06/15/17 10:00 06/18/17 11:30 Zyloprim - PO 100 mg DAILY [facility] Administration Alprazolam 0.25 mg 06/18/17 14:10 06/18/17 14:29 Xanax - PO 0.25 mg Q8H PRN Administration ANXIETY Anagrelide HCl 1 mg 06/15/17 22:00 06/18/17 14:29 Agrylin PO 1 mg TID [facility] Administration Aspirin 81 mg 06/15/17 10:00 06/18/17 11:32 Asa - PO 81 mg DAILY [facility] Administration Budesonide/Formoterol Fumarate 2 puff 06/14/17 22:00 06/18/17 11:32 Symbicort 160/4.5mcg - IH 2 puff BID [facility]I Administration Hydroxyurea 500 mg 06/16/17 10:00 06/16/17 09:55 Hydrea - PO 500 mg MoWeFr@1000 [facility] Administration Levofloxacin 250 mg in 50 mls @ 100 mls/hr 06/16/17 14:00 06/18/17 11:28 Levaquin 250 Mg Premixed Ivpb - IVPB 100 mls/hr DAILY [facility] Administration Methylprednisolone Sodium Succinate 40 mg 06/14/17 21:00 06/18/17 16:03 Solu-Medrol - IVPUSH 40 mg Q6H-IV [facility] Administration Metoprolol Succinate 12.5 mg 06/15/17 10:00 06/18/17 11:31 Toprol Xl - PO 12.5 mg DAILY [facility] Administration Linzess 72 Mcg 1 each 06/17/17 10:00 06/18/17 11:34 Capsule PO 1 each DAILY [facility] Administration Roflumilast 500 mcg 06/15/17 10:00 06/18/17 11:32 Daliresp - PO 500 mcg DAILY [facility] Administration Trazodone HCl 100 mg 06/15/17 23:00 06/17/17 21:33 Desyrel - PO 100 mg HS [facility] Administration A/P 67 y/o patient with myeloproliferative disorder, COPD exacerbation on hydrea/anagrelide/asa leukocytosis from steroids mildly worsening renal function --get renal consult gentle hydration
[2017-06-18] MEDS: traZODone HCL 50 MG TABLET (FP) PO SCH (21:47)
[2017-06-18] MEDS: SODIUM CHLORIDE 1,000 ML IV SCH (23:32)
[2017-06-19] MEDS: methylPREDNISolone NA SUCC 40 MG/1 ML VIAL IVPUSH SCH ×4 (02:28→21:14)
[2017-06-19] MEDS: ALPRAZolam 0.25 MG TABLET PO PRN ×2 (05:48→14:33)
[2017-06-19] MEDS: ANAGRELIDE HCL 1 MG PO SCH ×3 (05:49→21:18)
[2017-06-19] MEDS ORDERED: PT OWN MED DRAWER 7, Y5N ONE ×6 (07:23→15:20)
[2017-06-19] MEDS: LINZESS 72 MCG PO SCH ×2 (07:25→10:33)
[2017-06-19] MEDS: ALBUTEROL SO4 2.5/IPRATROPIUM 0.5 INH SOL 3 ML VIAL.NEB. NEB SCH ×4 (07:52→20:23)
[2017-06-19 08:22] LABS: URIC ACID 5.9 mg/dL (2.6-7.2)
[2017-06-19] MEDS: METOPROLOL SUCCINATE 25 MG TAB.SR.24H (FP) PO SCH (10:32)
[2017-06-19] MEDS: ASPIRIN 81 MG CHEWABLE TABLETS PO SCH (10:32)
[2017-06-19] MEDS: ALLOPURINOL 100 MG TABLET (FP) PO SCH (10:32)
[2017-06-19] MEDS: HYDROXYUREA 500 MG CAPSULE PO SCH (10:32)
[2017-06-19] MEDS: BUDESONIDE/FORMETEROL FUMARATE 160/4.5 mcg INHALER IH SCH ×2 (10:33→21:15)
[2017-06-19] MEDS: LEVOFLOXACIN 250 MG IVPB 250 MG/50 ML MG IVPB SCH (10:42)
[2017-06-19] MEDS: ROFLUMILAST 500 MCG TABLET PO SCH (12:13)
--- NOTE | 2017-06-19 15:00 | CONSULT ---
Consult Consult Specialty:: Nephrology Reason for Consultation:: CKD - History of Present Illness Chief Complaint: shortness of breath History of Present Illness: Pt is a 67 year old female with pmhx of CKD, COPD, anxiety, hemorrhoids, essential thrombocytosis, and diverticulosis who presents to the ER with increased shortness of breath. She was found to have elevated creatinine and was found to be hyperkalemic. She follow with Dr Degroot as outpt. She feels that her breathing is slowly getting better. She denies chest pain or palpitations. She is awake and alert. She denies nsaid use. - History Source History Provided By: Patient, Medical Record - Past Medical History Cardio/Vascular: Yes: HTN Pulmonary: Yes: COPD Gastrointestinal: Yes: Constipation, Other (ADRENAL ADENOMA, SEVERE DIVERTICULOSIS AND DIVERTICULITIS) Hepatobiliary: Yes: Other (HAD WORKUP FOR PORTAL HTN WHICH WAS NEGATIVE ( INCLUDED PORTAL PRESSURE MEASUREMENTS)) Renal/: Yes: Renal Inusuff Psych: Yes: Anxiety - Past Surgical History Past Surgical History: Yes: Colonoscopy, Upper Endoscopy - Alcohol/Substance Use Hx Alcohol Use: No History of Substance Use: reports: None - Smoking History Smoking history: Former smoker Have you smoked in the past 12 months: No Aproximately how many cigarettes per day: 5 If you are a former smoker, when did you quit?: 6 YRS - Social History Usual Living Arrangement: Alone (lives alone in house with 2 steps to enter and 12 inside; previously Independent in ADLs without AD) ADL: Independent History of Recent Travel: No Home Medications - Allergies Allergies/Adverse Reactions: Allergies Allergy/AdvReac Type Severity Reaction Status Date / Time Sulfa (Sulfonamide Allergy Verified 06/14/17 16:57 Antibiotics) - Home Medications Home Medications: Ambulatory Orders Albuterol Sulfate [Proair Hfa -] 1 - 2 inh PO PRN PRN 01/28/14 Aspirin [ASA -] 81 mg PO DAILY 10/30/15 Hydroxyurea [Hydrea] 500 mg PO ASDIR #30 11/03/15 Alprazolam [Xanax] 0.25 mg PO TID PRN 07/21/16 Budesonide/Formeterol Fumarate [SYMBICORT 160/4.5mcg -] 2 puff IH BID inhaler 08/12/16 Trazodone HCl [Desyrel -] 100 mg PO HS tablet 08/12/16 Allopurinol [Zyloprim -] 100 mg PO DAILY 11/14/16 Anagrelide HCl [Agrylin -] 0.5 mg PO Q3H6XD 11/14/16 Docusate Sodium [Colace -] 100 mg PO BID 11/14/16 Linaclotide [Linzess] 72 mcg PO Q2D 02/06/17 Tiotropium Br/Olodaterol HCl [Stiolto Respimat Inhal [place]] 4 gm IH BID #1 mist.inhal 02/09/17 Family Disease History - Family Disease History Family History: Denies Review of Systems - Review of Systems Constitutional: reports: Malaise. denies: Chills, Fever Eyes: reports: No Symptoms HENT: reports: No Symptoms Neck: reports: No Symptoms Cardiovascular: reports: Shortness of Breath. denies: Edema Respiratory: reports: Cough, SOB, SOB on Exertion Gastrointestinal: reports: No Symptoms Genitourinary: reports: No Symptoms Musculoskeletal: reports: No Symptoms Neurological: reports: No Symptoms Endocrine: reports: No Symptoms Hematology/Lymphatic: reports: No Symptoms Psychiatric: reports: No Symptoms Physical Exam Vital Signs: Vital Signs Temperature 97.8 F 06/19/17 10:24 Pulse Rate 107 H 06/19/17 10:24 Respiratory Rate 24 06/19/17 10:24 Blood Pressure 127/76 06/19/17 10:24 O2 Sat by Pulse Oximetry (%) 98 06/19/17 07:52 Constitutional: Yes: Calm Eyes: Yes: Conjunctiva Clear HENT: Yes: Atraumatic Neck: Yes: Supple Cardiovascular: Yes: S1, S2 Respiratory: Yes: Diminished, On Nasal O2 Gastrointestinal: Yes: Soft Renal/: Yes: WNL Musculoskeletal: Yes: WNL Edema: Yes Edema: LLE: Trace, RLE: Trace Neurological: Yes: Oriented Psychiatric: Yes: Oriented Labs: CBC, BMP 06/18/17 07:05 06/18/17 07:05 Laboratory Tests 08/12/16 01/16/17 05/15/17 07:00 15:30 14:04 WBC Plt Count Sodium Potassium BUN Creatinine 1.5 H 1.6 H 1.5 H Creat Clearance w eGFR 06/13/17 06/14/17 06/14/17 11:57 18:50 18:50 WBC 31.8 H* Plt Count 541 H Sodium 141 Potassium 5.4 H BUN 42 H Creatinine 1.5 H 1.7 H Creat Clearance w eGFR 06/18/17 06/18/17 07:05 07:05 WBC 45.2 H* D Plt Count 512 H Sodium 141 Potassium 5.1 BUN 64 H Creatinine 1.9 H Creat Clearance w eGFR 26.37 Imaging - Results Chest X-ray: Report Reviewed Problem List - Problems (1) CKD (chronic kidney disease) Code(s): N18.9 - CHRONIC KIDNEY DISEASE, UNSPECIFIED (2) Hyperkalemia Code(s): E87.5 - HYPERKALEMIA (3) COPD exacerbation Code(s): J44.1 - CHRONIC OBSTRUCTIVE PULMONARY DISEASE W (ACUTE) EXACERBATION (4) SOB (shortness of breath) Code(s): R06.02 - SHORTNESS OF BREATH (5) Acute renal failure Code(s): N17.9 - ACUTE KIDNEY FAILURE, UNSPECIFIED Assessment/Plan Current Medications Generic Name Dose Route Start Last Admin Trade Name Freq PRN Reason Stop Dose Admin Al Hydroxide/Mg Hydroxide 30 ml 06/17/17 18:36 06/18/17 16:41 Mylanta Oral Suspension - PO 30 ml Q6H PRN Administration INDIGESTION Albuterol Sulfate 1 amp 06/15/17 12:45 Ventolin 0.083% Nebulizer Soln - NEB Q4H PRN SHORT OF BREATH/WHEEZING Albuterol/Ipratropium 1 amp 06/15/17 08:00 06/19/17 11:14 Duoneb - NEB 1 amp RQID [facility] Administration Allopurinol 100 mg 06/15/17 10:00 06/19/17 10:32 Zyloprim - PO 100 mg DAILY [facility] Administration Alprazolam 0.25 mg 06/18/17 14:10 06/19/17 14:33 Xanax - PO 0.25 mg Q8H PRN Administration ANXIETY Anagrelide HCl 1 mg 06/15/17 22:00 06/19/17 14:34 Agrylin PO 1 mg TID [facility]I Administration Aspirin 81 mg 06/15/17 10:00 06/19/17 10:32 Asa - PO 81 mg DAILY [facility] Administration Budesonide/Formoterol Fumarate 2 puff 06/14/17 22:00 06/19/17 10:33 Symbicort 160/4.5mcg - IH 2 puff BID [facility]I Administration Hydroxyurea 500 mg 06/16/17 10:00 06/19/17 10:32 Hydrea - PO 500 mg MoWeFr@1000 [facility] Administration Sodium Chloride 1,000 mls @ 42 mls/hr 06/18/17 20:45 06/18/17 23:32 Normal Saline - IV 42 mls/hr ASDIR [facility] Administration Methylprednisolone Sodium Succinate 40 mg 06/14/17 21:00 06/19/17 15:45 Solu-Medrol - IVPUSH 40 mg Q6H-IV [facility] Administration Metoprolol Succinate 12.5 mg 06/15/17 10:00 06/19/17 10:32 Toprol Xl - PO 12.5 mg DAILY [facility] Administration Linzess 72 Mcg 1 each 06/17/17 10:00 06/19/17 10:33 Capsule PO Not Given DAILY [facility]I Pantoprazole Sodium 20 mg 06/20/17 10:00 Protonix - PO DAILY [facility]I Roflumilast 500 mcg 06/15/17 10:00 06/19/17 12:13 Daliresp - PO 500 mcg DAILY [facility] Administration Trazodone HCl 100 mg 06/15/17 23:00 06/18/17 21:47 Desyrel - PO 100 mg HS [facility]I Administration Impression 1. CKD with acute component 2. hyperkalemia 3. copd exacerbation 4. essential thrombocytosis 5. htn 6. anxiety 7. diverticulosis 8. hemorrhoids Plan - change fluids to 1/2 ns and decrease rate - repeat labs in am - renal function not far from baseline - will need outpt renal workup and follow up - check UA Dr Argueta
--- NOTE | 2017-06-19 15:09 | PN ---
Progress Note, Physician History of Present Illness: PULMONARY ALERT,STILL C/O SOB ON NASAL O2 - Current Medication List Current Medications: Active Medications Al Hydroxide/Mg Hydroxide (Mylanta Oral Suspension -) 30 ml PO Q6H PRN PRN Reason: INDIGESTION Last Admin: 06/18/17 16:41 Dose: 30 ml Albuterol Sulfate (Ventolin 0.083% Nebulizer Soln -) 1 amp NEB Q4H PRN PRN Reason: SHORT OF BREATH/WHEEZING Albuterol/Ipratropium (Duoneb -) 1 amp NEB RQID [facility] Last Admin: 06/19/17 11:14 Dose: 1 amp Allopurinol (Zyloprim -) 100 mg PO DAILY [facility] Last Admin: 06/19/17 10:32 Dose: 100 mg Alprazolam (Xanax -) 0.25 mg PO Q8H PRN PRN Reason: ANXIETY Last Admin: 06/19/17 14:33 Dose: 0.25 mg Anagrelide HCl (Agrylin) 1 mg PO TID [facility] Last Admin: 06/19/17 14:34 Dose: 1 mg Aspirin (Asa -) 81 mg PO DAILY [facility] Last Admin: 06/19/17 10:32 Dose: 81 mg Budesonide/Formoterol Fumarate (Symbicort 160/4.5mcg -) 2 puff IH BID [facility] Last Admin: 06/19/17 10:33 Dose: 2 puff Hydroxyurea (Hydrea -) 500 mg PO MoWeFr@1000 [facility] Last Admin: 06/19/17 10:32 Dose: 500 mg Sodium Chloride (Normal Saline -) 1,000 mls @ 42 mls/hr IV ASDIR [facility] Last Admin: 06/18/17 23:32 Dose: 42 mls/hr Methylprednisolone Sodium Succinate (Solu-Medrol -) 40 mg IVPUSH Q6H-IV [facility] Last Admin: 06/19/17 09:35 Dose: 40 mg Metoprolol Succinate (Toprol Xl -) 12.5 mg PO DAILY [facility] Last Admin: 06/19/17 10:32 Dose: 12.5 mg Linzess 72 Mcg (Capsule) 1 each PO DAILY [facility] Last Admin: 06/19/17 10:33 Dose: Not Given Roflumilast (Daliresp -) 500 mcg PO DAILY [facility] Last Admin: 06/19/17 12:13 Dose: 500 mcg Trazodone HCl (Desyrel -) 100 mg PO HS [facility] Last Admin: 06/18/17 21:47 Dose: 100 mg - Objective Vital Signs: Vital Signs Temperature 97.8 F 06/19/17 10:24 Pulse Rate 107 H 06/19/17 10:24 Respiratory Rate 24 06/19/17 10:24 Blood Pressure 127/76 06/19/17 10:24 O2 Sat by Pulse Oximetry (%) 98 06/19/17 07:52 Constitutional: Yes: Well Nourished, Calm Eyes: Yes: WNL HENT: Yes: WNL Neck: Yes: WNL Cardiovascular: Yes: Regular Rate and Rhythm, S1, S2 Respiratory: Yes: Diminished Gastrointestinal: Yes: Normal Bowel Sounds, Soft Extremities: Yes: WNL Edema: No Labs: CBC, BMP Assessment/Plan Assessment/Plan DuoNeb Daliresp Symbicort ABX r NIPPV support as needed SCDs O2 as needed Linzess Steroid taper DR YAN Problem List - Problems (1) COPD exacerbation Code(s): J44.1 - CHRONIC OBSTRUCTIVE PULMONARY DISEASE W (ACUTE) EXACERBATION (2) SOB (shortness of breath) Code(s): R06.02 - SHORTNESS OF BREATH (3) Anemia Code(s): D64.9 - ANEMIA, UNSPECIFIED (4) Anxiety Code(s): F41.9 - ANXIETY DISORDER, UNSPECIFIED (5) Bronchitis Code(s): J40 - BRONCHITIS, NOT SPECIFIED ACUTE OR CHRONIC (6) Bronchitis, acute Code(s): J20.9 - ACUTE BRONCHITIS, UNSPECIFIED (7) COPD (chronic obstructive pulmonary disease) with acute bronchitis Code(s): J44.0 - CHRONIC OBSTRUCTIVE PULMON DISEASE W ACUTE LOWER RESP INFCT (8) Diverticulosis of colon Code(s): K57.30 - DVRTCLOS OF LG INT W/O PERFORATION OR ABSCESS W/O BLEEDING (9) Essential thrombocytosis Code(s): D47.3 - ESSENTIAL (HEMORRHAGIC) THROMBOCYTHEMIA (10) Hemorrhoids Code(s): K64.9 - UNSPECIFIED HEMORRHOIDS (11) IBS (irritable bowel syndrome) Code(s): K58.9 - IRRITABLE BOWEL SYNDROME WITHOUT DIARRHEA (12) Myeloproliferative disorder Code(s): D47.1 - CHRONIC MYELOPROLIFERATIVE DISEASE (13) Stricture of sigmoid colon Code(s): K56.69 - OTHER INTESTINAL OBSTRUCTION * DO NOT USE *
--- NOTE | 2017-06-19 16:16 | CON.CARD ---
Consult Consult Specialty:: Cardiology Referred by:: Piero Ortiz MD Reason for Consultation:: Tachycardia - History of Present Illness Chief Complaint: Progressive dyspnea History of Present Illness: 66 F, COPD on home O2 (2 to 3 Liters), MPD, anxiety, hemorrhoids, diverticulosis , cardiomegaly, splenomegaly, hepatomegaly, IBS and thrombocytopenia admitted for progressive dyspnea, without hemoptysis but some green tinged sputum. She reported increased anxiety, tachycardia, palpitations without chest pain earlier today. - History Source History Provided By: Patient Limitations to Obtaining History: No Limitations - Past Medical History Cardio/Vascular: Yes: HTN. No: AFIB, Aneurysm, Aortic Insufficiency, Aortic Stenosis, CAD, CHF, Deep Vein Thrombosis, Hyperlipdemia, VT, Mitral Insufficiency, Mitral Stenosis, Murmur, Pulmonary Hypertension, Other Pulmonary: Yes: COPD. No: Asthma, Bronchitis, Cancer, O2 Dependent, Pneumonia, Previously Intubated, Pulmonary Embolus, Pulmonary Fibrosis, Sleep Apnea, Other Gastrointestinal: Yes: Constipation, Other (ADRENAL ADENOMA, SEVERE DIVERTICULOSIS AND DIVERTICULITIS) Hepatobiliary: Yes: Other (HAD WORKUP FOR PORTAL HTN WHICH WAS NEGATIVE ( INCLUDED PORTAL PRESSURE MEASUREMENTS)) Renal/: Yes: Renal Inusuff Psych: Yes: Anxiety. No: Addictions, Bipolar, Depression, Panic, Psychosis, Schizophrenia, Other - Past Surgical History Past Surgical History: Yes: Colonoscopy, Upper Endoscopy - Alcohol/Substance Use Hx Alcohol Use: No History of Substance Use: reports: None - Smoking History Smoking history: Former smoker Have you smoked in the past 12 months: No Aproximately how many cigarettes per day: 5 If you are a former smoker, when did you quit?: 6 YRS - Social History Usual Living Arrangement: Alone (lives alone in house with 2 steps to enter and 12 inside; previously Independent in ADLs without AD) ADL: Independent History of Recent Travel: No Home Medications - Allergies Allergies/Adverse Reactions: Allergies Allergy/AdvReac Type Severity Reaction Status Date / Time Sulfa (Sulfonamide Allergy Verified 06/14/17 16:57 Antibiotics) - Home Medications Home Medications: Ambulatory Orders Albuterol Sulfate [Proair Hfa -] 1 - 2 inh PO PRN PRN 01/28/14 Aspirin [ASA -] 81 mg PO DAILY 10/30/15 Hydroxyurea [Hydrea] 500 mg PO ASDIR #30 11/03/15 Alprazolam [Xanax] 0.25 mg PO TID PRN 07/21/16 Budesonide/Formeterol Fumarate [SYMBICORT 160/4.5mcg -] 2 puff IH BID inhaler 08/12/16 Trazodone HCl [Desyrel -] 100 mg PO HS tablet 08/12/16 Allopurinol [Zyloprim -] 100 mg PO DAILY 11/14/16 Anagrelide HCl [Agrylin -] 0.5 mg PO Q3H6XD 11/14/16 Docusate Sodium [Colace -] 100 mg PO BID 11/14/16 Linaclotide [Linzess] 72 mcg PO Q2D 02/06/17 Tiotropium Br/Olodaterol HCl [Stiolto Respimat Inhal [place]] 4 gm IH BID #1 mist.inhal 02/09/17 Review of Systems - Review of Systems Cardiovascular: reports: Palpitations, Shortness of Breath Vital Signs: Vital Signs Temperature 99.2 F 06/19/17 15:52 Pulse Rate 116 H 06/19/17 15:52 Respiratory Rate 28 H 06/19/17 15:52 Blood Pressure 146/85 06/19/17 15:52 O2 Sat by Pulse Oximetry (%) 98 06/19/17 07:52 Constitutional: Yes: No Distress, Calm, Thin Neck: Yes: Supple Respiratory: Yes: Regular, Diminished, On Nasal O2, SOB Gastrointestinal: Yes: Normal Bowel Sounds, Soft Cardiovascular: Yes: Tachycardia JVD: No Carotid Bruit: No Heart Sounds: Yes: S1, S2 Edema: No - Other Data Labs, Other Data: CBC, BMP 06/18/17 07:05 06/18/17 07:05 INR, PTT INR 1.20 (0.82-1.09) H 06/18/17 07:05 ST @ 126 min criteria [facility] Imaging - Results Chest X-ray: Report Reviewed (NAD) Problem List - Problems (1) Anemia Code(s): D64.9 - ANEMIA, UNSPECIFIED Qualifiers: Anemia type: due to chronic kidney disease Chronic kidney disease stage: stage 2 (mild) Qualified Code(s): N18.2 - Chronic kidney disease, stage 2 ( mild); D63.1 - Anemia in chronic kidney disease; D63.1 - Anemia in chronic kidney disease (2) Palpitation Code(s): R00.2 - PALPITATIONS (3) Sinus tachycardia Code(s): R00.0 - TACHYCARDIA, UNSPECIFIED (4) COPD exacerbation Code(s): J44.1 - CHRONIC OBSTRUCTIVE PULMONARY DISEASE W (ACUTE) EXACERBATION (5) Anxiety Code(s): F41.9 - ANXIETY DISORDER, UNSPECIFIED (6) Leukocytosis Code(s): D72.829 - ELEVATED WHITE BLOOD CELL COUNT, UNSPECIFIED Qualifiers: Leukocytosis type: unspecified Qualified Code(s): D72.829 - Elevated white blood cell count, unspecified (7) Myeloproliferative disorder Code(s): D47.1 - CHRONIC MYELOPROLIFERATIVE DISEASE Assessment/Plan 1. Palpitations r/o sustained tachyarrhythmia 2. Sinus tachycardia referable to AE home-O2 dependent COPD 3. Myeloproliferative disorder 4. Leukocytosis from steroids 5. Acute on CKD P:1. Check EKG, f/u echocardiogram to assess LV function, holter monitor to determine arrhythmia burden, check TSH 2. BD, O2, Daliresp, steroid taper, empiric abx, NIPPV support as needed 3. IVF with monitor renal recovery 4. ASA 81 qd, Toprol XL 12.5 qd as tolerated 5. Thank you for consultative opportunity
[2017-06-19] MEDS ORDERED: SODIUM CHLORIDE 0.45% 1,000 ML IV SCH (17:30)
[2017-06-19] MEDS: SODIUM CHLORIDE 1,000 ML IV SCH (17:59)
[2017-06-19] MEDS ORDERED: ALPRAZolam 0.25 MG TABLET PO ONE (20:45)
[2017-06-19] MEDS: traZODone HCL 50 MG TABLET (FP) PO SCH (23:00)
[2017-06-20] MEDS: methylPREDNISolone NA SUCC 40 MG/1 ML VIAL IVPUSH SCH ×3 (03:14→17:27)
[2017-06-20] MEDS: ANAGRELIDE HCL 1 MG PO SCH ×3 (06:32→21:26)
[2017-06-20] MEDS: LINZESS 72 MCG PO SCH ×2 (07:52→10:41)
[2017-06-20 08:05] LABS: HEMATOCRIT 29.3 % (32.4-45.2); HEMOGLOBIN 8.7 GM/dL (10.7-15.3); MCH 27.3 pg (25.7-33.7); MCHC 29.6 g/dl (32.0-36.0); MEAN CELL VOLUME 92.3 fl (80-96); MEAN PLT VOLUME 8.6 fl (7.5-11.1); PLATELET COUNT 447 K/MM3 (134-434); RBC 3.17 M/mm3 (3.60-5.2); RDW 20.3 % (11.6-15.6)
[2017-06-20 08:31] LABS: CHLORIDE 108 mmol/L (98-107); POTASSIUM 5.6 mmol/L (3.5-5.1); SODIUM 143 mmol/L (136-145)
[2017-06-20 08:56] LABS: WHITE BLOOD COUNT 52.1 K/mm3 (4.0-10.0)
[2017-06-20 09:06] LABS: ALBUMIN 3.1 g/dl (3.4-5.0); ALK PHOS 81 U/L (45-117); ANION GAP 8 (8-16); BILIRUBIN,TOTAL 0.3 mg/dL (0.2-1.0); BLOOD UREA NITROGEN 60 mg/dL (7-18); CALCIUM 8.6 mg/dL (8.5-10.1); CO2 27 mmol/L (21-32); CREATININE 1.6 mg/dL (0.55-1.02); GLUCOSE,RANDOM 103 mg/dL (74-106); SGOT/AST 11 U/L (15-37); SGPT/ALT 29 U/L (12-78); TOT PROT 5.7 g/dl (6.4-8.2)
[2017-06-20] MEDS: ALPRAZolam 0.25 MG TABLET PO PRN ×3 (10:03→23:11)
--- NOTE | 2017-06-20 10:07 | PN ---
Progress Note (short form) - Note Progress Note: Patient seen and examined breathing better than before, still has sputum, but feels that it is improving. Cor: RSR, No murmurs, No gallops Lungs: decreased at bases Abd: Soft, Normal bowel sounds, No organomegaly Ext:No significant edema Last Vital Signs Temp Pulse Resp BP Pulse Ox 98.3 F 90 22 139/80 96 06/20/17 06:00 06/20/17 06:00 06/20/17 06:00 06/20/17 06:00 06/19/17 10:55 CBC, BMP 06/20/17 06:40 06/20/17 06:40 Current Medications Generic Name Dose Route Start Last Admin Trade Name Freq PRN Reason Stop Dose Admin Al Hydroxide/Mg Hydroxide 30 ml 06/17/17 18:36 06/18/17 16:41 Mylanta Oral Suspension - PO 30 ml Q6H PRN Administration INDIGESTION Albuterol Sulfate 1 amp 06/15/17 12:45 06/20/17 07:55 Ventolin 0.083% Nebulizer Soln - NEB 1 amp Q4H PRN Administration SHORT OF BREATH/WHEEZING Allopurinol 100 mg 06/15/17 10:00 06/19/17 10:32 Zyloprim - PO 100 mg DAILY RANDI Administration Alprazolam 0.25 mg 06/18/17 14:10 06/20/17 10:03 Xanax - PO 0.25 mg Q8H PRN Administration ANXIETY Anagrelide HCl 1 mg 06/15/17 22:00 06/20/17 06:32 Agrylin PO 1 mg TID RANDI Administration Aspirin 81 mg 06/15/17 10:00 06/19/17 10:32 Asa - PO 81 mg DAILY RANDI Administration Budesonide/Formoterol Fumarate 2 puff 06/14/17 22:00 06/19/17 21:15 Symbicort 160/4.5mcg - IH 2 puff BID RANDI Administration Hydroxyurea 500 mg 06/16/17 10:00 06/19/17 10:32 Hydrea - PO 500 mg MoWeFr@1000 RANDI Administration Sodium Chloride 1,000 mls @ 35 mls/hr 06/19/17 17:30 06/19/17 19:00 1/2 Normal Saline IV 35 mls/hr ASDIR RANDI Administration Methylprednisolone Sodium Succinate 40 mg 06/14/17 21:00 06/20/17 10:03 Solu-Medrol - IVPUSH 40 mg Q6H-IV RANDI Administration Metoprolol Succinate 12.5 mg 06/15/17 10:00 06/19/17 10:32 Toprol Xl - PO 12.5 mg DAILY RANDI Administration Linzess 72 Mcg 1 each 06/17/17 10:00 06/20/17 07:52 Capsule PO 1 each DAILY RANDI Administration Pantoprazole Sodium 20 mg 06/20/17 10:00 Protonix - PO DAILY RANDI Roflumilast 500 mcg 06/15/17 10:00 06/19/17 12:13 Daliresp - PO 500 mcg DAILY RANDI Administration Trazodone HCl 100 mg 06/15/17 23:00 06/19/17 23:00 Desyrel - PO 100 mg HS RANDI Administration CBC reviewed Increase in Neutrophils from baseline, component of steroids will c/w anagrelide/hydrea renal c.s steroids per Pulm will follow
[2017-06-20] MEDS: ALLOPURINOL 100 MG TABLET (FP) PO SCH ×2 (10:39→13:48)
[2017-06-20] MEDS: ASPIRIN 81 MG CHEWABLE TABLETS PO SCH (10:39)
[2017-06-20] MEDS: PANTOPRAZOLE 20 MG TABLET (FP) PO SCH (10:40)
[2017-06-20] MEDS: ROFLUMILAST 500 MCG TABLET PO SCH (10:40)
[2017-06-20] MEDS: METOPROLOL SUCCINATE 25 MG TAB.SR.24H (FP) PO SCH (10:40)
[2017-06-20] MEDS: BUDESONIDE/FORMETEROL FUMARATE 160/4.5 mcg INHALER IH SCH ×2 (10:41→21:25)
[2017-06-20 11:03] LABS: URINE APPEARANCE CLEAR; URINE BILIRUBIN NEGATIVE (NEGATIVE); URINE BLOOD NEGATIVE (NEGATIVE); URINE COLOR STRAW; URINE GLUCOSE (UA) NEGATIVE (NEGATIVE); URINE KETONE NEGATIVE (NEGATIVE); URINE LEUK ESTERASE NEGATIVE (NEGATIVE); URINE NITRITE NEGATIVE (NEGATIVE); URINE PROTEIN NEGATIVE (NEGATIVE); URINE UROBILINOGEN NEGATIVE mg/dL (0.2-1.0)
--- NOTE | 2017-06-20 12:35 | PN ---
Progress Note (short form) - Note Progress Note: PULMONARY/MED Breathing better but still requiring intermittent BiPAP. +cough with green sputum. Last Vital Signs Temp Pulse Resp BP Pulse Ox 97.5 F L 108 H 22 132/82 96 06/20/17 10:12 06/20/17 10:12 06/20/17 10:12 06/20/17 10:12 06/19/17 10:55 Gen: anxious but in NAD Heart: tachycardic, regular Lung: decreased breath sounds right base, left base rales Abd: soft, nontender Ext: no edema CBC, BMP 06/20/17 06:40 06/20/17 06:40 Active Medications Al Hydroxide/Mg Hydroxide (Mylanta Oral Suspension -) 30 ml PO Q6H PRN PRN Reason: INDIGESTION Last Admin: 06/18/17 16:41 Dose: 30 ml Albuterol Sulfate (Ventolin 0.083% Nebulizer Soln -) 1 amp NEB Q4H PRN PRN Reason: SHORT OF BREATH/WHEEZING Last Admin: 06/20/17 07:55 Dose: 1 amp Allopurinol (Zyloprim -) 100 mg PO DAILY [facility] Last Admin: 06/20/17 10:39 Dose: Not Given Alprazolam (Xanax -) 0.25 mg PO Q8H PRN PRN Reason: ANXIETY Last Admin: 06/20/17 10:03 Dose: 0.25 mg Anagrelide HCl (Agrylin) 1 mg PO TID [facility] Last Admin: 06/20/17 06:32 Dose: 1 mg Aspirin (Asa -) 81 mg PO DAILY [facility] Last Admin: 06/20/17 10:39 Dose: 81 mg Budesonide/Formoterol Fumarate (Symbicort 160/4.5mcg -) 2 puff IH BID [facility] Last Admin: 06/20/17 10:41 Dose: Not Given Hydroxyurea (Hydrea -) 500 mg PO MoWeFr@1000 [facility] Last Admin: 06/19/17 10:32 Dose: 500 mg Sodium Chloride (1/2 Normal Saline) 1,000 mls @ 35 mls/hr IV ASDIR [facility] Last Admin: 06/19/17 19:00 Dose: 35 mls/hr Methylprednisolone Sodium Succinate (Solu-Medrol -) 40 mg IVPUSH Q6H-IV [facility] Last Admin: 06/20/17 10:03 Dose: 40 mg Metoprolol Succinate (Toprol Xl -) 12.5 mg PO DAILY [facility] Last Admin: 06/20/17 10:40 Dose: 12.5 mg Linzess 72 Mcg (Capsule) 1 each PO DAILY [facility] Last Admin: 06/20/17 10:41 Dose: Not Given Pantoprazole Sodium (Protonix -) 20 mg PO DAILY [facility] Last Admin: 06/20/17 10:40 Dose: 20 mg Roflumilast (Daliresp -) 500 mcg PO DAILY [facility] Last Admin: 06/20/17 10:40 Dose: 500 mcg Trazodone HCl (Desyrel -) 100 mg PO HS [facility] Last Admin: 06/19/17 23:00 Dose: 100 mg A/P Acute COPD Exacerbation Chronic Hypoxic Respiratory Failure Tachycardia Myeloproliferative Disorder Acute on Chronic Renal Failure improving - will decrease medrol to q8h dosing - inhaled bronchodilators - O2 to keep SpO2 >90% - BiPAP to assist in work of breathing - will d/c IVF as rales on exam and creatinine at baseline - will increase xanax to her home dose - f/u holter, echo - cardiology f/u 1. Palpitations r/o sustained tachyarrhythmia 2. Sinus tachycardia referable to AE home-O2 dependent COPD 3. Myeloproliferative disorder 4. Leukocytosis from steroids 5. Acute on CKD P:1. Check EKG, f/u echocardiogram to assess LV function, holter monitor to determine arrhythmia burden, check TSH 2. BD, O2, Daliresp, steroid taper, empiric abx, NIPPV support as needed 3. IVF with monitor renal recovery 4. ASA 81 qd, Toprol XL 12.5 qd as tolerated 5. Thank you for consultative opportunity
--- NOTE | 2017-06-20 12:47 | PN ---
Progress Note, Physician Chief Complaint: Events noted Dyspnea persists, but tolerating therapy History of Present Illness: Patient was seen and examined. Awake and alert. Chart was reviewed Denies chest pain. Intermittent palpitations and SOB on O2 and CPAP - Current Medication List Current Medications: Active Medications Al Hydroxide/Mg Hydroxide (Mylanta Oral Suspension -) 30 ml PO Q6H PRN PRN Reason: INDIGESTION Last Admin: 06/18/17 16:41 Dose: 30 ml Allopurinol (Zyloprim -) 100 mg PO DAILY [facility] Last Admin: 06/20/17 10:39 Dose: Not Given Alprazolam (Xanax -) 0.25 mg PO Q6H PRN PRN Reason: ANXIETY Anagrelide HCl (Agrylin) 1 mg PO TID [facility] Last Admin: 06/20/17 06:32 Dose: 1 mg Aspirin (Asa -) 81 mg PO DAILY [facility] Last Admin: 06/20/17 10:39 Dose: 81 mg Budesonide/Formoterol Fumarate (Symbicort 160/4.5mcg -) 2 puff IH BID [facility] Last Admin: 06/20/17 10:41 Dose: Not Given Hydroxyurea (Hydrea -) 500 mg PO MoWeFr@1000 [facility] Last Admin: 06/19/17 10:32 Dose: 500 mg Methylprednisolone Sodium Succinate (Solu-Medrol -) 40 mg IVPUSH Q8H [facility] Metoprolol Succinate (Toprol Xl -) 12.5 mg PO DAILY [facility] Last Admin: 06/20/17 10:40 Dose: 12.5 mg Linzess 72 Mcg (Capsule) 1 each PO DAILY [facility] Last Admin: 06/20/17 10:41 Dose: Not Given Pantoprazole Sodium (Protonix -) 20 mg PO DAILY [facility] Last Admin: 06/20/17 10:40 Dose: 20 mg Roflumilast (Daliresp -) 500 mcg PO DAILY [facility] Last Admin: 06/20/17 10:40 Dose: 500 mcg Trazodone HCl (Desyrel -) 100 mg PO HS [facility] Last Admin: 06/19/17 23:00 Dose: 100 mg - Objective Vital Signs: Vital Signs Temperature 97.5 F L 06/20/17 10:12 Pulse Rate 108 H 06/20/17 10:12 Respiratory Rate 22 06/20/17 10:12 Blood Pressure 132/82 06/20/17 10:12 O2 Sat by Pulse Oximetry (%) 96 06/19/17 10:55 Constitutional: Yes: Well Nourished Eyes: Yes: PERRL HENT: Yes: Atraumatic Neck: Yes: Supple Cardiovascular: Yes: Regular Rate and Rhythm, Tachycardia, S1, S2 Respiratory: Yes: Diminished, On BiPap, On Nasal O2, SOB Gastrointestinal: Yes: Normal Bowel Sounds, Soft. No: Tenderness Edema: No Labs: CBC, BMP 06/20/17 06:40 06/20/17 06:40 INR, PTT INR 1.20 (0.82-1.09) H 06/18/17 07:05 Problem List - Problems (1) CKD (chronic kidney disease) Code(s): N18.9 - CHRONIC KIDNEY DISEASE, UNSPECIFIED (2) COPD exacerbation Code(s): J44.1 - CHRONIC OBSTRUCTIVE PULMONARY DISEASE W (ACUTE) EXACERBATION (3) Palpitation Code(s): R00.2 - PALPITATIONS (4) SOB (shortness of breath) Code(s): R06.02 - SHORTNESS OF BREATH (5) Sinus tachycardia Code(s): R00.0 - TACHYCARDIA, UNSPECIFIED (6) COPD (chronic obstructive pulmonary disease) with acute bronchitis Code(s): J44.0 - CHRONIC OBSTRUCTIVE PULMON DISEASE W ACUTE LOWER RESP INFCT (7) Diverticulosis Code(s): K57.90 - DVRTCLOS OF INTEST, PART UNSP, W/O PERF OR ABSCESS W/O BLEED (8) Essential thrombocytosis Code(s): D47.3 - ESSENTIAL (HEMORRHAGIC) THROMBOCYTHEMIA (9) IBS (irritable bowel syndrome) Code(s): K58.9 - IRRITABLE BOWEL SYNDROME WITHOUT DIARRHEA (10) Leukocytosis Code(s): D72.829 - ELEVATED WHITE BLOOD CELL COUNT, UNSPECIFIED Qualifiers: Leukocytosis type: unspecified Qualified Code(s): D72.829 - Elevated white blood cell count, unspecified (11) Myeloproliferative disorder Code(s): D47.1 - CHRONIC MYELOPROLIFERATIVE DISEASE Assessment/Plan 1. Palpitations - rule out sustained tachyarrhythmia 2. Sinus tachycardia referable to acute exacerbation of home-O2 dependent COPD 3. Myeloproliferative disorder 4. Leukocytosis from steroids 5. Acute on CKD PLAN: 1. Transthoracic echocardiography to assess LV/RV and valvular function. Holter monitor to determine arrhythmia burden. 2. Bronchodilators, O2, steroid taper, empiric antibiotics, NIPPV support as needed 3. IVF with monitor renal function and electrolytes 4. ASA 81 qd and Toprol XL 12.5 qd as tolerated Further plans are to follow Bhavik Miranda MD
[2017-06-20 13:38] LABS: ANISOCYTOSIS 2+; MACROCYTOSIS 1+; OVALOCYTE 1+; PLATELET ESTIMATE NORMAL; TEAR DROP CELLS 1+
--- NOTE | 2017-06-20 14:12 | PN ---
Progress Note, Physician History of Present Illness: Pt seen and examined at bedside. She is awake and alert. She feels that her breathing is mildly improved. - Current Medication List Current Medications: Active Medications Al Hydroxide/Mg Hydroxide (Mylanta Oral Suspension -) 30 ml PO Q6H PRN PRN Reason: INDIGESTION Last Admin: 06/18/17 16:41 Dose: 30 ml Allopurinol (Zyloprim -) 100 mg PO DAILY [facility] Last Admin: 06/20/17 13:48 Dose: 100 mg Alprazolam (Xanax -) 0.25 mg PO Q6H PRN PRN Reason: ANXIETY Anagrelide HCl (Agrylin) 1 mg PO TID [facility] Last Admin: 06/20/17 13:50 Dose: 1 mg Aspirin (Asa -) 81 mg PO DAILY [facility] Last Admin: 06/20/17 10:39 Dose: 81 mg Budesonide/Formoterol Fumarate (Symbicort 160/4.5mcg -) 2 puff IH BID [facility] Last Admin: 06/20/17 10:41 Dose: Not Given Hydroxyurea (Hydrea -) 500 mg PO MoWeFr@1000 [facility] Last Admin: 06/19/17 10:32 Dose: 500 mg Methylprednisolone Sodium Succinate (Solu-Medrol -) 40 mg IVPUSH Q8H-IV RANDI Metoprolol Succinate (Toprol Xl -) 12.5 mg PO DAILY [facility] Last Admin: 06/20/17 10:40 Dose: 12.5 mg Linzess 72 Mcg (Capsule) 1 each PO DAILY [facility] Last Admin: 06/20/17 10:41 Dose: Not Given Pantoprazole Sodium (Protonix -) 20 mg PO DAILY [facility] Last Admin: 06/20/17 10:40 Dose: 20 mg Roflumilast (Daliresp -) 500 mcg PO DAILY [facility] Last Admin: 06/20/17 10:40 Dose: 500 mcg Trazodone HCl (Desyrel -) 100 mg PO HS [facility] Last Admin: 06/19/17 23:00 Dose: 100 mg - Objective Vital Signs: Vital Signs Temperature 99.3 F 06/20/17 13:53 Pulse Rate 95 H 06/20/17 13:53 Respiratory Rate 21 06/20/17 13:53 Blood Pressure 143/76 06/20/17 13:53 O2 Sat by Pulse Oximetry (%) 96 06/19/17 10:55 Constitutional: Yes: Calm Eyes: Yes: Conjunctiva Clear HENT: Yes: Atraumatic Neck: Yes: Supple Cardiovascular: Yes: S1, S2 Respiratory: Yes: Diminished, On BiPap, On Nasal O2 Gastrointestinal: Yes: Soft Genitourinary: Yes: WNL Musculoskeletal: Yes: WNL Edema: No Neurological: Yes: Oriented Psychiatric: Yes: Oriented Labs: CBC, BMP 06/20/17 06:40 06/20/17 06:40 INR, PTT INR 1.20 (0.82-1.09) H 06/18/17 07:05 Problem List - Problems (1) CKD (chronic kidney disease) Code(s): N18.9 - CHRONIC KIDNEY DISEASE, UNSPECIFIED (2) Hyperkalemia Code(s): E87.5 - HYPERKALEMIA (3) COPD exacerbation Code(s): J44.1 - CHRONIC OBSTRUCTIVE PULMONARY DISEASE W (ACUTE) EXACERBATION (4) SOB (shortness of breath) Code(s): R06.02 - SHORTNESS OF BREATH (5) Acute renal failure Code(s): N17.9 - ACUTE KIDNEY FAILURE, UNSPECIFIED Assessment/Plan Current Medications Generic Name Dose Route Start Last Admin Trade Name Freq PRN Reason Stop Dose Admin Al Hydroxide/Mg Hydroxide 30 ml 06/17/17 18:36 06/18/17 16:41 Mylanta Oral Suspension - PO 30 ml Q6H PRN Administration INDIGESTION Allopurinol 100 mg 06/15/17 10:00 06/20/17 13:48 Zyloprim - PO 100 mg DAILY RANDI Administration Alprazolam 0.25 mg 06/20/17 12:36 Xanax - PO Q6H PRN ANXIETY Anagrelide HCl 1 mg 06/15/17 22:00 06/20/17 13:50 Agrylin PO 1 mg TID RANDI Administration Aspirin 81 mg 06/15/17 10:00 06/20/17 10:39 Asa - PO 81 mg DAILY RANDI Administration Budesonide/Formoterol Fumarate 2 puff 06/14/17 22:00 06/20/17 10:41 Symbicort 160/4.5mcg - IH Not Given BID RANDI Hydroxyurea 500 mg 06/16/17 10:00 06/19/17 10:32 Hydrea - PO 500 mg MoWeFr@1000 RANDI Administration Methylprednisolone Sodium Succinate 40 mg 06/20/17 18:00 Solu-Medrol - IVPUSH Q8H-IV RANDI Metoprolol Succinate 12.5 mg 06/15/17 10:00 06/20/17 10:40 Toprol Xl - PO 12.5 mg DAILY RANDI Administration Linzess 72 Mcg 1 each 06/17/17 10:00 06/20/17 10:41 Capsule PO Not Given DAILY RANDI Pantoprazole Sodium 20 mg 06/20/17 10:00 06/20/17 10:40 Protonix - PO 20 mg DAILY RANDI Administration Roflumilast 500 mcg 06/15/17 10:00 06/20/17 10:40 Daliresp - PO 500 mcg DAILY RANDI Administration Trazodone HCl 100 mg 06/15/17 23:00 06/19/17 23:00 Desyrel - PO 100 mg HS RANDI Administration Laboratory Tests 06/20/17 06/20/17 06:40 12:36 Potassium 5.6 H Plasma Potassium 5.2 H Creatinine 1.6 H Impression 1. CKD with acute component 2. hyperkalemia - likely in part pseudohyperkalemia 3. copd exacerbation 4. essential thrombocytosis 5. htn 6. anxiety 7. diverticulosis 8. hemorrhoids Plan - plasma sodium is lower - elevated wbc contributes to high potassium - start low K diet - repeat labs in am - can stop fluids - steroids with taper per pulmonary - check UA Dr Argueta
[2017-06-20] MEDS: traZODone HCL 50 MG TABLET (FP) PO SCH (21:25)
[2017-06-20] MEDS ORDERED: ALBUTEROL SO4 0.083% IH SOL 2.5 MG/3 ML VIAL.NEB. NEB PRN (22:14)
[2017-06-21] MEDS: methylPREDNISolone NA SUCC 40 MG/1 ML VIAL IVPUSH SCH ×4 (02:49→18:15)
[2017-06-21] MEDS: ANAGRELIDE HCL 1 MG PO SCH ×3 (06:56→21:14)
[2017-06-21] MEDS: ALPRAZolam 0.25 MG TABLET PO PRN ×3 (08:05→21:15)
--- NOTE | 2017-06-21 08:09 | EKG ---
Test Reason : Blood Pressure : / mmHG Vent. Rate : 110 BPM Atrial Rate : 110 BPM P-R Int : 124 ms QRS Dur : 068 ms QT Int : 306 ms P-R-T Axes : 072 027 025 degrees QTc Int : 414 ms SINUS TACHYCARDIA OTHERWISE NORMAL ECG WHEN COMPARED WITH ECG OF 14-JUN-2017 18:33, NO SIGNIFICANT CHANGE WAS FOUND Confirmed by DRAGAN LANIER MD ([id number]) on 06/21/2017 8:08:54 AM Referred By: Confirmed By:DRAGAN LANIER MD
[2017-06-21 08:33] LABS: HEMATOCRIT 31.1 % (32.4-45.2); MCH 27.6 pg (25.7-33.7); MEAN CELL VOLUME 95.1 fl (80-96); MEAN PLT VOLUME 9.6 fl (7.5-11.1); PLATELET COUNT 417 K/MM3 (134-434); RBC 3.27 M/mm3 (3.60-5.2); RDW 21.3 % (11.6-15.6)
[2017-06-21] MEDS: ALBUTEROL SO4 2.5/IPRATROPIUM 0.5 INH SOL 3 ML VIAL.NEB. NEB SCH ×4 (08:40→20:35)
[2017-06-21 08:52] LABS: WHITE BLOOD COUNT 46.4 K/mm3 (4.0-10.0)
[2017-06-21 08:57] LABS: CHLORIDE 106 mmol/L (98-107); POTASSIUM 5.3 mmol/L (3.5-5.1); SODIUM 142 mmol/L (136-145)
[2017-06-21] MEDS ORDERED: PT OWN MED DRAWER 7, Y5N ONE ×5 (09:16→21:09)
[2017-06-21] MEDS: HYDROXYUREA 500 MG CAPSULE PO SCH (09:28)
[2017-06-21] MEDS: PANTOPRAZOLE 20 MG TABLET (FP) PO SCH (09:29)
[2017-06-21] MEDS: ASPIRIN 81 MG CHEWABLE TABLETS PO SCH (09:29)
[2017-06-21] MEDS: ROFLUMILAST 500 MCG TABLET PO SCH (09:30)
[2017-06-21] MEDS: LINZESS 72 MCG PO SCH (09:32)
[2017-06-21] MEDS: BUDESONIDE/FORMETEROL FUMARATE 160/4.5 mcg INHALER IH SCH ×2 (09:33→21:15)
[2017-06-21 10:21] LABS: ANION GAP 10 (8-16); BLOOD UREA NITROGEN 55 mg/dL (7-18); CALCIUM 8.3 mg/dL (8.5-10.1); CO2 26 mmol/L (21-32); CREATININE 1.6 mg/dL (0.55-1.02); GLUCOSE,RANDOM 82 mg/dL (74-106); MAGNESIUM 2.3 mg/dL (1.8-2.4); PHOSPHOROUS 3.8 mg/dL (2.5-4.9)
[2017-06-21] MEDS: ALLOPURINOL 100 MG TABLET (FP) PO SCH (10:30)
[2017-06-21] MEDS: METOPROLOL SUCCINATE 25 MG TAB.SR.24H (FP) PO SCH (10:30)
[2017-06-21 12:25] LABS: ANISOCYTOSIS 3+; MACROCYTOSIS 1+; OVALOCYTE 2+; PLATELET ESTIMATE NORMAL; TEAR DROP CELLS 2+
--- NOTE | 2017-06-21 13:00 | PN ---
Progress Note, Physician History of Present Illness: Dyspnea and palpitations improving, cough with scant light-green sputum. - Current Medication List Current Medications: Active Medications Al Hydroxide/Mg Hydroxide (Mylanta Oral Suspension -) 30 ml PO Q6H PRN PRN Reason: INDIGESTION Last Admin: 06/18/17 16:41 Dose: 30 ml Albuterol Sulfate (Ventolin 0.083% Nebulizer Soln -) 1 amp NEB Q4H PRN PRN Reason: SHORT OF BREATH/WHEEZING Last Admin: 06/20/17 21:45 Dose: 1 amp Albuterol/Ipratropium (Duoneb -) 1 amp NEB RQID [facility] Last Admin: 06/21/17 08:40 Dose: 1 amp Allopurinol (Zyloprim -) 100 mg PO DAILY [facility] Last Admin: 06/21/17 10:30 Dose: 100 mg Alprazolam (Xanax -) 0.25 mg PO Q6H PRN PRN Reason: ANXIETY Last Admin: 06/21/17 08:05 Dose: 0.25 mg Anagrelide HCl (Agrylin) 1 mg PO TID [facility] Last Admin: 06/21/17 06:56 Dose: 1 mg Aspirin (Asa -) 81 mg PO DAILY [facility] Last Admin: 06/21/17 09:29 Dose: 81 mg Budesonide/Formoterol Fumarate (Symbicort 160/4.5mcg -) 2 puff IH BID [facility] Last Admin: 06/21/17 09:33 Dose: 2 puff Hydroxyurea (Hydrea -) 500 mg PO MoWeFr@1000 [facility] Last Admin: 06/21/17 09:28 Dose: 500 mg Methylprednisolone Sodium Succinate (Solu-Medrol -) 40 mg IVPUSH Q8H-IV [facility] Last Admin: 06/21/17 10:30 Dose: Not Given Metoprolol Succinate (Toprol Xl -) 12.5 mg PO DAILY [facility] Last Admin: 06/21/17 10:30 Dose: 12.5 mg Linzess 72 Mcg (Capsule) 1 each PO DAILY [facility] Last Admin: 06/21/17 09:32 Dose: 1 each Pantoprazole Sodium (Protonix -) 20 mg PO DAILY [facility] Last Admin: 06/21/17 09:29 Dose: 20 mg Roflumilast (Daliresp -) 500 mcg PO DAILY [facility] Last Admin: 06/21/17 09:30 Dose: 500 mcg Trazodone HCl (Desyrel -) 100 mg PO HS [facility] Last Admin: 06/20/17 21:25 Dose: 100 mg - Objective Vital Signs: Vital Signs Temperature 98.6 F 06/21/17 09:18 Pulse Rate 113 H 06/21/17 10:28 Respiratory Rate 28 H 06/21/17 10:28 Blood Pressure 111/62 06/21/17 10:28 O2 Sat by Pulse Oximetry (%) 94 L 06/20/17 21:00 Constitutional: Yes: No Distress, Calm, Thin Neck: Yes: Supple Cardiovascular: Yes: Regular Rate and Rhythm Respiratory: Yes: Regular, Diminished, On Nasal O2 Gastrointestinal: Yes: Normal Bowel Sounds, Soft Edema: No Labs: CBC, BMP 06/21/17 07:30 06/21/17 07:30 INR, PTT INR 1.20 (0.82-1.09) H 06/18/17 07:05 Problem List - Problems (1) Anemia Code(s): D64.9 - ANEMIA, UNSPECIFIED Qualifiers: Anemia type: due to chronic kidney disease Chronic kidney disease stage: stage 2 (mild) Qualified Code(s): N18.2 - Chronic kidney disease, stage 2 ( mild); D63.1 - Anemia in chronic kidney disease; D63.1 - Anemia in chronic kidney disease (2) Palpitation Code(s): R00.2 - PALPITATIONS (3) Sinus tachycardia Code(s): R00.0 - TACHYCARDIA, UNSPECIFIED (4) COPD exacerbation Code(s): J44.1 - CHRONIC OBSTRUCTIVE PULMONARY DISEASE W (ACUTE) EXACERBATION (5) Anxiety Code(s): F41.9 - ANXIETY DISORDER, UNSPECIFIED (6) Leukocytosis Code(s): D72.829 - ELEVATED WHITE BLOOD CELL COUNT, UNSPECIFIED Qualifiers: Leukocytosis type: unspecified Qualified Code(s): D72.829 - Elevated white blood cell count, unspecified (7) Myeloproliferative disorder Code(s): D47.1 - CHRONIC MYELOPROLIFERATIVE DISEASE Assessment/Plan 06/20/2017 Transthoracic echocardiography: Normal LV size with hyperdynamic LV fxn, normal atrial sizes, tr MR, TR 1. Palpitations - rule out sustained tachyarrhythmia 2. Sinus tachycardia referable to acute exacerbation of home-O2 dependent COPD improving 3. Myeloproliferative disorder 4. Leukocytosis from steroids 5. Acute on CKD PLAN: 1. F/u Holter monitor to determine arrhythmia burden 2. Bronchodilators, O2, steroid taper, Daliresp, NIPPV support as needed 3. Monitor renal function and electrolytes 4. ASA 81 qd and increase Toprol XL 25 qd as tolerated
--- NOTE | 2017-06-21 14:14 | HOL ---
Hook-up date: 2017-06-20 10:33:00 Duration: 23:57:00 Test Indications: PALPITATIONS, TACHYCARDIA Medications: [id number] QRS complexes 87 Ventricular ectopics which represent <1 % of total QRS comp. 169 Supraventricular ectopics which represent <1 % of total QRS comp. * Paced QRS complexs which represent % of total QRS comp. * % of Time Classified as Noise VENTRICULAR ECTOPY 85 Isolated 0 Bigeminal Cycles 1 Couplets 0 Runs 0 Beats in Runs * Beats LONGEST at * BPM at :: -- * Beats FASTEST at * BPM at :: -- SUPRAVENTRICULAR ECTOPY 133 Isolated 15 Couplets 2 Runs 6 Beats in Runs 3 Beats LONGEST at 185 BPM at 11:57:37 2017-06-20 3 Beats FASTEST at 185 BPM at 11:57:37 2017-06-20 HEART RATES 72 MIN at 03:51:43 2017-06-21 101 AVG 143 MAX at 09:26:11 2017-06-21 LONGEST RR 1.152 secs at 03:51:42 2017-06-21 SCANNED BY: MARS 06/21/17 Normal sinus rhythm 85 isolated vpcs 1 couplet 133 isolated apc's 15 apccouplets 1 3 beats long svt at the rate of 185 Confirmed by YOLANDE ROBERTS, DRAGAN ([id number]) on 06/21/2017 2:13:43 PM Referred By: Sandeep LYNN Overread By: DRAGAN LANIER MD
[2017-06-21] MEDS ORDERED: METOPROLOL SUCCINATE 25 MG TAB.SR.24H (FP) PO ONE (14:15)
--- NOTE | 2017-06-21 15:51 | PN ---
Progress Note, Physician Chief Complaint: COUGH/SOB History of Present Illness: STILL WITH COUGH/SCANT SPUTUM - Current Medication List Current Medications: Active Medications Al Hydroxide/Mg Hydroxide (Mylanta Oral Suspension -) 30 ml PO Q6H PRN PRN Reason: INDIGESTION Last Admin: 06/18/17 16:41 Dose: 30 ml Albuterol Sulfate (Ventolin 0.083% Nebulizer Soln -) 1 amp NEB Q4H PRN PRN Reason: SHORT OF BREATH/WHEEZING Last Admin: 06/20/17 21:45 Dose: 1 amp Albuterol/Ipratropium (Duoneb -) 1 amp NEB RQID [facility] Last Admin: 06/21/17 11:35 Dose: 1 amp Allopurinol (Zyloprim -) 100 mg PO DAILY [facility] Last Admin: 06/21/17 10:30 Dose: 100 mg Alprazolam (Xanax -) 0.25 mg PO Q6H PRN PRN Reason: ANXIETY Last Admin: 06/21/17 14:36 Dose: 0.25 mg Anagrelide HCl (Agrylin) 1 mg PO TID [facility] Last Admin: 06/21/17 13:59 Dose: 1 mg Aspirin (Asa -) 81 mg PO DAILY [facility] Last Admin: 06/21/17 09:29 Dose: 81 mg Budesonide/Formoterol Fumarate (Symbicort 160/4.5mcg -) 2 puff IH BID [facility] Last Admin: 06/21/17 09:33 Dose: 2 puff Hydroxyurea (Hydrea -) 500 mg PO MoWeFr@1000 [facility] Last Admin: 06/21/17 09:28 Dose: 500 mg Methylprednisolone Sodium Succinate (Solu-Medrol -) 40 mg IVPUSH Q8H-IV [facility] Last Admin: 06/21/17 10:30 Dose: Not Given Metoprolol Succinate (Toprol Xl -) 25 mg PO DAILY [facility] Linzess 72 Mcg (Capsule) 1 each PO DAILY [facility] Last Admin: 06/21/17 09:32 Dose: 1 each Pantoprazole Sodium (Protonix -) 20 mg PO DAILY [facility] Last Admin: 06/21/17 09:29 Dose: 20 mg Roflumilast (Daliresp -) 500 mcg PO DAILY [facility] Last Admin: 06/21/17 09:30 Dose: 500 mcg Trazodone HCl (Desyrel -) 100 mg PO HS [facility] Last Admin: 06/20/17 21:25 Dose: 100 mg - Objective Vital Signs: Vital Signs Temperature 98 F 06/21/17 15:14 Pulse Rate 94 H 06/21/17 15:14 Respiratory Rate 24 06/21/17 15:14 Blood Pressure 121/65 06/21/17 15:14 O2 Sat by Pulse Oximetry (%) 95 06/21/17 10:00 Constitutional: Yes: Calm Eyes: Yes: EOM Intact HENT: Yes: Normocephalic Neck: Yes: Trachea Midline Cardiovascular: Yes: Regular Rate and Rhythm, S1, S2 Respiratory: Yes: Diminished, Poor Air Entry Gastrointestinal: Yes: Normal Bowel Sounds Edema: No Labs: CBC, BMP 06/21/17 07:30 06/21/17 07:30 INR, PTT INR 1.20 (0.82-1.09) H 06/18/17 07:05 - ....Imaging Chest X-ray: Report Reviewed, Image Reviewed EKG: Report Reviewed, Image Reviewed Problem List - Problems (1) Chronic respiratory failure Code(s): J96.10 - CHRONIC RESPIRATORY FAILURE, UNSP W HYPOXIA OR HYPERCAPNIA (2) CKD (chronic kidney disease) Code(s): N18.9 - CHRONIC KIDNEY DISEASE, UNSPECIFIED (3) COPD exacerbation Code(s): J44.1 - CHRONIC OBSTRUCTIVE PULMONARY DISEASE W (ACUTE) EXACERBATION (4) Hyperkalemia Code(s): E87.5 - HYPERKALEMIA (5) SOB (shortness of breath) Code(s): R06.02 - SHORTNESS OF BREATH Assessment/Plan Scheduled DuoNeb Daliresp Symbicort Heme/Renal evaluations appreciated ABX held NIPPV Support as needed SCDs O2 as needed Continue home meds. Taper steroids Sandeep LYNN MD
--- NOTE | 2017-06-21 17:15 | PN ---
Progress Note, Physician History of Present Illness: Pt seen and examined at bedside. She is awake and alert. She still complains of shortness of breath. - Current Medication List Current Medications: Active Medications Al Hydroxide/Mg Hydroxide (Mylanta Oral Suspension -) 30 ml PO Q6H PRN PRN Reason: INDIGESTION Last Admin: 06/18/17 16:41 Dose: 30 ml Albuterol Sulfate (Ventolin 0.083% Nebulizer Soln -) 1 amp NEB Q4H PRN PRN Reason: SHORT OF BREATH/WHEEZING Last Admin: 06/20/17 21:45 Dose: 1 amp Albuterol/Ipratropium (Duoneb -) 1 amp NEB RQID [facility] Last Admin: 06/21/17 16:00 Dose: 1 amp Allopurinol (Zyloprim -) 100 mg PO DAILY [facility] Last Admin: 06/21/17 10:30 Dose: 100 mg Alprazolam (Xanax -) 0.25 mg PO Q6H PRN PRN Reason: ANXIETY Last Admin: 06/21/17 14:36 Dose: 0.25 mg Anagrelide HCl (Agrylin) 1 mg PO TID [facility] Last Admin: 06/21/17 13:59 Dose: 1 mg Aspirin (Asa -) 81 mg PO DAILY [facility] Last Admin: 06/21/17 09:29 Dose: 81 mg Budesonide/Formoterol Fumarate (Symbicort 160/4.5mcg -) 2 puff IH BID [facility] Last Admin: 06/21/17 09:33 Dose: 2 puff Hydroxyurea (Hydrea -) 500 mg PO MoWeFr@1000 [facility] Last Admin: 06/21/17 09:28 Dose: 500 mg Methylprednisolone Sodium Succinate (Solu-Medrol -) 40 mg IVPUSH Q8H-IV [facility] Last Admin: 06/21/17 10:30 Dose: Not Given Metoprolol Succinate (Toprol Xl -) 25 mg PO DAILY [facility] Linzess 72 Mcg (Capsule) 1 each PO DAILY [facility] Last Admin: 06/21/17 09:32 Dose: 1 each Pantoprazole Sodium (Protonix -) 20 mg PO DAILY [facility] Last Admin: 06/21/17 09:29 Dose: 20 mg Roflumilast (Daliresp -) 500 mcg PO DAILY [facility] Last Admin: 06/21/17 09:30 Dose: 500 mcg Trazodone HCl (Desyrel -) 100 mg PO HS [facility] Last Admin: 06/20/17 21:25 Dose: 100 mg - Objective Vital Signs: Vital Signs Temperature 98 F 06/21/17 15:14 Pulse Rate 94 H 06/21/17 15:14 Respiratory Rate 24 06/21/17 15:14 Blood Pressure 121/65 06/21/17 15:14 O2 Sat by Pulse Oximetry (%) 95 06/21/17 10:00 Constitutional: Yes: Calm Eyes: Yes: Conjunctiva Clear HENT: Yes: Atraumatic Cardiovascular: Yes: S1, S2 Respiratory: Yes: On Nasal O2, Wheezes Gastrointestinal: Yes: Soft Genitourinary: Yes: WNL Musculoskeletal: Yes: WNL Edema: No Neurological: Yes: Oriented Psychiatric: Yes: Oriented Labs: CBC, BMP 06/21/17 07:30 06/21/17 07:30 INR, PTT INR 1.20 (0.82-1.09) H 06/18/17 07:05 Problem List - Problems (1) CKD (chronic kidney disease) Code(s): N18.9 - CHRONIC KIDNEY DISEASE, UNSPECIFIED (2) Hyperkalemia Code(s): E87.5 - HYPERKALEMIA (3) COPD exacerbation Code(s): J44.1 - CHRONIC OBSTRUCTIVE PULMONARY DISEASE W (ACUTE) EXACERBATION (4) SOB (shortness of breath) Code(s): R06.02 - SHORTNESS OF BREATH (5) Acute renal failure Code(s): N17.9 - ACUTE KIDNEY FAILURE, UNSPECIFIED Assessment/Plan Current Medications Generic Name Dose Route Start Last Admin Trade Name Freq PRN Reason Stop Dose Admin Al Hydroxide/Mg Hydroxide 30 ml 06/17/17 18:36 06/18/17 16:41 Mylanta Oral Suspension - PO 30 ml Q6H PRN Administration INDIGESTION Albuterol Sulfate 1 amp 06/20/17 22:14 06/20/17 21:45 Ventolin 0.083% Nebulizer Soln - NEB 1 amp Q4H PRN Administration SHORT OF BREATH/WHEEZING Albuterol/Ipratropium 1 amp 06/21/17 08:00 06/21/17 16:00 Duoneb - NEB 1 amp RQID [facility] Administration Allopurinol 100 mg 06/15/17 10:00 06/21/17 10:30 Zyloprim - PO 100 mg DAILY [facility] Administration Alprazolam 0.25 mg 06/20/17 12:36 06/21/17 14:36 Xanax - PO 0.25 mg Q6H PRN Administration ANXIETY Anagrelide HCl 1 mg 06/15/17 22:00 06/21/17 13:59 Agrylin PO 1 mg TID [facility] Administration Aspirin 81 mg 06/15/17 10:00 06/21/17 09:29 Asa - PO 81 mg DAILY [facility] Administration Budesonide/Formoterol Fumarate 2 puff 06/14/17 22:00 06/21/17 09:33 Symbicort 160/4.5mcg - IH 2 puff BID [facility] Administration Hydroxyurea 500 mg 06/16/17 10:00 06/21/17 09:28 Hydrea - PO 500 mg MoWeFr@1000 [facility] Administration Methylprednisolone Sodium Succinate 40 mg 06/20/17 18:00 06/21/17 10:30 Solu-Medrol - IVPUSH Not Given Q8H-IV [facility] Metoprolol Succinate 25 mg 06/22/17 10:00 Toprol Xl - PO DAILY [facility] Linzess 72 Mcg 1 each 06/17/17 10:00 06/21/17 09:32 Capsule PO 1 each DAILY [facility] Administration Pantoprazole Sodium 20 mg 06/20/17 10:00 06/21/17 09:29 Protonix - PO 20 mg DAILY [facility] Administration Roflumilast 500 mcg 06/15/17 10:00 06/21/17 09:30 Daliresp - PO 500 mcg DAILY [facility] Administration Trazodone HCl 100 mg 06/15/17 23:00 06/20/17 21:25 Desyrel - PO 100 mg HS [facility] Administration Impression 1. CKD with acute component 2. hyperkalemia - likely in part pseudohyperkalemia 3. copd exacerbation 4. essential thrombocytosis 5. htn 6. anxiety 7. diverticulosis 8. hemorrhoids 9. leukocytosis Plan - renal function is stable - potassium is stable - monitor renal function - steroids taper per pulm - elevated wbc contributes to high potassium - recommend outpt follow up with Dr Degroot and renal workup Dr Argueta
--- NOTE | 2017-06-21 19:36 | PN ---
Progress Note (short form) - Note Progress Note: Patient seen and examined continues to improve Cor: RSR, No murmurs, No gallops Lungs: decreased at bases Abd: Soft, Normal bowel sounds, No organomegaly Ext:No significant edema Last Vital Signs Temp Pulse Resp BP Pulse Ox 98 F 94 H 24 121/65 95 06/21/17 15:14 06/21/17 15:14 06/21/17 15:14 06/21/17 15:14 06/21/17 10:00 CBC, BMP 06/21/17 07:30 06/21/17 07:30 Current Medications Generic Name Dose Route Start Last Admin Trade Name Freq PRN Reason Stop Dose Admin Al Hydroxide/Mg Hydroxide 30 ml 06/17/17 18:36 06/18/17 16:41 Mylanta Oral Suspension - PO 30 ml Q6H PRN Administration INDIGESTION Albuterol Sulfate 1 amp 06/20/17 22:14 06/20/17 21:45 Ventolin 0.083% Nebulizer Soln - NEB 1 amp Q4H PRN Administration SHORT OF BREATH/WHEEZING Albuterol/Ipratropium 1 amp 06/21/17 08:00 06/21/17 16:00 Duoneb - NEB 1 amp RQID [facility] Administration Allopurinol 100 mg 06/15/17 10:00 06/21/17 10:30 Zyloprim - PO 100 mg DAILY [facility] Administration Alprazolam 0.25 mg 06/20/17 12:36 06/21/17 14:36 Xanax - PO 0.25 mg Q6H PRN Administration ANXIETY Anagrelide HCl 1 mg 06/15/17 22:00 06/21/17 13:59 Agrylin PO 1 mg TID [facility] Administration Aspirin 81 mg 06/15/17 10:00 06/21/17 09:29 Asa - PO 81 mg DAILY [facility] Administration Budesonide/Formoterol Fumarate 2 puff 06/14/17 22:00 06/21/17 09:33 Symbicort 160/4.5mcg - IH 2 puff BID [facility] Administration Hydroxyurea 500 mg 06/16/17 10:00 06/21/17 09:28 Hydrea - PO 500 mg MoWeFr@1000 [facility] Administration Methylprednisolone Sodium Succinate 40 mg 06/20/17 18:00 06/21/17 18:15 Solu-Medrol - IVPUSH 40 mg Q8H-IV [facility] Administration Metoprolol Succinate 25 mg 06/22/17 10:00 Toprol Xl - PO DAILY [facility] Linzess 72 Mcg 1 each 06/17/17 10:00 06/21/17 09:32 Capsule PO 1 each DAILY [facility] Administration Pantoprazole Sodium 20 mg 06/20/17 10:00 06/21/17 09:29 Protonix - PO 20 mg DAILY [facility] Administration Roflumilast 500 mcg 06/15/17 10:00 06/21/17 09:30 Daliresp - PO 500 mcg DAILY [facility] Administration Trazodone HCl 100 mg 06/15/17 23:00 06/20/17 21:25 Desyrel - PO 100 mg HS [facility] Administration CBC reviewed white cells increase, a component of steroid induced will c/w anagrelide/hydrea renal c.s noted steroids per Pulm will follow
[2017-06-21] MEDS: traZODone HCL 50 MG TABLET (FP) PO SCH (21:15)
[2017-06-22] MEDS: methylPREDNISolone NA SUCC 40 MG/1 ML VIAL IVPUSH SCH ×3 (01:41→17:08)
[2017-06-22] MEDS: ANAGRELIDE HCL 1 MG PO SCH ×3 (06:20→23:25)
[2017-06-22] MEDS: ALPRAZolam 0.25 MG TABLET PO PRN ×3 (07:57→23:03)
[2017-06-22] MEDS: ALBUTEROL SO4 2.5/IPRATROPIUM 0.5 INH SOL 3 ML VIAL.NEB. NEB SCH ×4 (08:20→20:51)
[2017-06-22] MEDS: PANTOPRAZOLE 20 MG TABLET (FP) PO SCH (09:55)
[2017-06-22] MEDS: ASPIRIN 81 MG CHEWABLE TABLETS PO SCH (09:55)
[2017-06-22] MEDS: ROFLUMILAST 500 MCG TABLET PO SCH (09:56)
[2017-06-22] MEDS: BUDESONIDE/FORMETEROL FUMARATE 160/4.5 mcg INHALER IH SCH ×2 (09:56→23:25)
[2017-06-22] MEDS: METOPROLOL SUCCINATE 25 MG TAB.SR.24H (FP) PO SCH (09:56)
[2017-06-22] MEDS: LINZESS 72 MCG PO SCH (09:57)
[2017-06-22] MEDS: ALLOPURINOL 100 MG TABLET (FP) PO SCH (10:28)
--- NOTE | 2017-06-22 13:04 | PN ---
Progress Note, Physician History of Present Illness: Dyspnea and palpitations improving, non-productive cough. Reviewed holter results with patient. - Current Medication List Current Medications: Active Medications Al Hydroxide/Mg Hydroxide (Mylanta Oral Suspension -) 30 ml PO Q6H PRN PRN Reason: INDIGESTION Last Admin: 06/18/17 16:41 Dose: 30 ml Albuterol Sulfate (Ventolin 0.083% Nebulizer Soln -) 1 amp NEB Q4H PRN PRN Reason: SHORT OF BREATH/WHEEZING Last Admin: 06/20/17 21:45 Dose: 1 amp Albuterol/Ipratropium (Duoneb -) 1 amp NEB RQID [facility] Last Admin: 06/22/17 08:20 Dose: 1 amp Allopurinol (Zyloprim -) 100 mg PO DAILY [facility] Last Admin: 06/22/17 10:28 Dose: 100 mg Alprazolam (Xanax -) 0.25 mg PO Q6H PRN PRN Reason: ANXIETY Last Admin: 06/22/17 07:57 Dose: 0.25 mg Anagrelide HCl (Agrylin) 1 mg PO TID [facility] Last Admin: 06/22/17 06:20 Dose: 1 mg Aspirin (Asa -) 81 mg PO DAILY [facility] Last Admin: 06/22/17 09:55 Dose: 81 mg Budesonide/Formoterol Fumarate (Symbicort 160/4.5mcg -) 2 puff IH BID [facility] Last Admin: 06/22/17 09:56 Dose: 2 puff Hydroxyurea (Hydrea -) 500 mg PO MoWeFr@1000 [facility] Last Admin: 06/21/17 09:28 Dose: 500 mg Methylprednisolone Sodium Succinate (Solu-Medrol -) 40 mg IVPUSH Q8H-IV [facility] Last Admin: 06/22/17 09:55 Dose: 40 mg Metoprolol Succinate (Toprol Xl -) 25 mg PO DAILY [facility] Last Admin: 06/22/17 09:56 Dose: 25 mg Linzess 72 Mcg (Capsule) 1 each PO DAILY [facility] Last Admin: 06/22/17 09:57 Dose: 1 each Pantoprazole Sodium (Protonix -) 20 mg PO DAILY [facility] Last Admin: 06/22/17 09:55 Dose: 20 mg Roflumilast (Daliresp -) 500 mcg PO DAILY [facility] Last Admin: 06/22/17 09:56 Dose: 500 mcg Trazodone HCl (Desyrel -) 100 mg PO HS [facility] Last Admin: 06/21/17 21:15 Dose: 100 mg - Objective Vital Signs: Vital Signs Temperature 98.5 F 06/22/17 11:17 Pulse Rate 92 H 06/22/17 11:17 Respiratory Rate 20 06/22/17 11:17 Blood Pressure 138/80 06/22/17 11:17 O2 Sat by Pulse Oximetry (%) 97 06/22/17 09:00 Constitutional: Yes: No Distress, Calm Neck: Yes: Supple Cardiovascular: Yes: Regular Rate and Rhythm Respiratory: Yes: Regular, Diminished, On Nasal O2 Gastrointestinal: Yes: Normal Bowel Sounds, Soft Edema: No Labs: CBC, BMP 06/21/17 07:30 06/21/17 07:30 INR, PTT INR 1.20 (0.82-1.09) H 06/18/17 07:05 Problem List - Problems (1) Anemia Code(s): D64.9 - ANEMIA, UNSPECIFIED Qualifiers: Anemia type: due to chronic kidney disease Chronic kidney disease stage: stage 2 (mild) Qualified Code(s): N18.2 - Chronic kidney disease, stage 2 ( mild); D63.1 - Anemia in chronic kidney disease; D63.1 - Anemia in chronic kidney disease (2) Palpitation Code(s): R00.2 - PALPITATIONS (3) Sinus tachycardia Code(s): R00.0 - TACHYCARDIA, UNSPECIFIED (4) COPD exacerbation Code(s): J44.1 - CHRONIC OBSTRUCTIVE PULMONARY DISEASE W (ACUTE) EXACERBATION (5) Anxiety Code(s): F41.9 - ANXIETY DISORDER, UNSPECIFIED (6) Leukocytosis Code(s): D72.829 - ELEVATED WHITE BLOOD CELL COUNT, UNSPECIFIED Qualifiers: Leukocytosis type: unspecified Qualified Code(s): D72.829 - Elevated white blood cell count, unspecified (7) Myeloproliferative disorder Code(s): D47.1 - CHRONIC MYELOPROLIFERATIVE DISEASE Assessment/Plan 06/20/2017 Transthoracic echocardiography: Normal LV size with hyperdynamic LV fxn, normal atrial sizes, tr MR, TR 06/20/2017 Holter: NSR, rare PAC, PVC 1. Palpitations - Rare PAC, PVC 2. Sinus tachycardia referable to acute exacerbation of home-O2 dependent COPD improving 3. Myeloproliferative disorder 4. Leukocytosis from steroids 5. Acute on CKD PLAN: 1. Bronchodilators, O2, steroid taper, Daliresp, NIPPV support as needed 2. Monitor renal function and electrolytes 3. ASA 81 qd and Toprol XL 25 qd as tolerated
--- NOTE | 2017-06-22 14:24 | PN ---
Progress Note, Physician History of Present Illness: PULMONARY ALERT,LESS DYSPNEIC,+COUGH - Current Medication List Current Medications: Active Medications Al Hydroxide/Mg Hydroxide (Mylanta Oral Suspension -) 30 ml PO Q6H PRN PRN Reason: INDIGESTION Last Admin: 06/18/17 16:41 Dose: 30 ml Albuterol Sulfate (Ventolin 0.083% Nebulizer Soln -) 1 amp NEB Q4H PRN PRN Reason: SHORT OF BREATH/WHEEZING Last Admin: 06/20/17 21:45 Dose: 1 amp Albuterol/Ipratropium (Duoneb -) 1 amp NEB RQID [facility] Last Admin: 06/22/17 08:20 Dose: 1 amp Allopurinol (Zyloprim -) 100 mg PO DAILY [facility] Last Admin: 06/22/17 10:28 Dose: 100 mg Alprazolam (Xanax -) 0.25 mg PO Q6H PRN PRN Reason: ANXIETY Last Admin: 06/22/17 07:57 Dose: 0.25 mg Anagrelide HCl (Agrylin) 1 mg PO TID [facility] Last Admin: 06/22/17 13:45 Dose: 1 mg Aspirin (Asa -) 81 mg PO DAILY [facility] Last Admin: 06/22/17 09:55 Dose: 81 mg Budesonide/Formoterol Fumarate (Symbicort 160/4.5mcg -) 2 puff IH BID [facility] Last Admin: 06/22/17 09:56 Dose: 2 puff Hydroxyurea (Hydrea -) 500 mg PO MoWeFr@1000 [facility] Last Admin: 06/21/17 09:28 Dose: 500 mg Methylprednisolone Sodium Succinate (Solu-Medrol -) 40 mg IVPUSH Q8H-IV [facility] Last Admin: 06/22/17 09:55 Dose: 40 mg Metoprolol Succinate (Toprol Xl -) 25 mg PO DAILY [facility] Last Admin: 06/22/17 09:56 Dose: 25 mg Linzess 72 Mcg (Capsule) 1 each PO DAILY [facility] Last Admin: 06/22/17 09:57 Dose: 1 each Pantoprazole Sodium (Protonix -) 20 mg PO DAILY [facility] Last Admin: 06/22/17 09:55 Dose: 20 mg Roflumilast (Daliresp -) 500 mcg PO DAILY [facility] Last Admin: 06/22/17 09:56 Dose: 500 mcg Trazodone HCl (Desyrel -) 100 mg PO HS [facility] Last Admin: 06/21/17 21:15 Dose: 100 mg - Objective Vital Signs: Vital Signs Temperature 98.5 F 06/22/17 11:17 Pulse Rate 92 H 06/22/17 11:17 Respiratory Rate 20 06/22/17 11:17 Blood Pressure 138/80 06/22/17 11:17 O2 Sat by Pulse Oximetry (%) 97 06/22/17 09:00 Constitutional: Yes: Calm, Thin Eyes: Yes: WNL HENT: Yes: WNL Neck: Yes: WNL Cardiovascular: Yes: Regular Rate and Rhythm, S1, S2 Respiratory: Yes: Wheezes (SCATTERED BI WHEEZES) Gastrointestinal: Yes: Normal Bowel Sounds, Soft Extremities: Yes: WNL Edema: No Labs: CBC, BMP Assessment/Plan Assessment/Plan DuoNeb Daliresp Symbicort ABX NIPPV support as needed SCDs O2 as needed Linzess Steroids taper DR YAN Problem List - Problems (1) COPD exacerbation Code(s): J44.1 - CHRONIC OBSTRUCTIVE PULMONARY DISEASE W (ACUTE) EXACERBATION (2) SOB (shortness of breath) Code(s): R06.02 - SHORTNESS OF BREATH (3) Anemia Code(s): D64.9 - ANEMIA, UNSPECIFIED (4) Anxiety Code(s): F41.9 - ANXIETY DISORDER, UNSPECIFIED (5) Bronchitis Code(s): J40 - BRONCHITIS, NOT SPECIFIED ACUTE OR CHRONIC (6) Bronchitis, acute Code(s): J20.9 - ACUTE BRONCHITIS, UNSPECIFIED (7) COPD (chronic obstructive pulmonary disease) with acute bronchitis Code(s): J44.0 - CHRONIC OBSTRUCTIVE PULMON DISEASE W ACUTE LOWER RESP INFCT (8) Diverticulosis of colon Code(s): K57.30 - DVRTCLOS OF LG INT W/O PERFORATION OR ABSCESS W/O BLEEDING (9) Essential thrombocytosis Code(s): D47.3 - ESSENTIAL (HEMORRHAGIC) THROMBOCYTHEMIA (10) Hemorrhoids Code(s): K64.9 - UNSPECIFIED HEMORRHOIDS (11) IBS (irritable bowel syndrome) Code(s): K58.9 - IRRITABLE BOWEL SYNDROME WITHOUT DIARRHEA (12) Myeloproliferative disorder Code(s): D47.1 - CHRONIC MYELOPROLIFERATIVE DISEASE (13) Stricture of sigmoid colon Code(s): K56.69 - OTHER INTESTINAL OBSTRUCTION * DO NOT USE *
--- NOTE | 2017-06-22 14:42 | PN ---
Progress Note, Physician History of Present Illness: Pt seen and examined at bedside. Still has SOB. - Current Medication List Current Medications: Active Medications Al Hydroxide/Mg Hydroxide (Mylanta Oral Suspension -) 30 ml PO Q6H PRN PRN Reason: INDIGESTION Last Admin: 06/18/17 16:41 Dose: 30 ml Albuterol Sulfate (Ventolin 0.083% Nebulizer Soln -) 1 amp NEB Q4H PRN PRN Reason: SHORT OF BREATH/WHEEZING Last Admin: 06/20/17 21:45 Dose: 1 amp Albuterol/Ipratropium (Duoneb -) 1 amp NEB RQID [facility] Last Admin: 06/22/17 08:20 Dose: 1 amp Allopurinol (Zyloprim -) 100 mg PO DAILY [facility] Last Admin: 06/22/17 10:28 Dose: 100 mg Alprazolam (Xanax -) 0.25 mg PO Q6H PRN PRN Reason: ANXIETY Last Admin: 06/22/17 07:57 Dose: 0.25 mg Anagrelide HCl (Agrylin) 1 mg PO TID [facility] Last Admin: 06/22/17 13:45 Dose: 1 mg Aspirin (Asa -) 81 mg PO DAILY [facility] Last Admin: 06/22/17 09:55 Dose: 81 mg Budesonide/Formoterol Fumarate (Symbicort 160/4.5mcg -) 2 puff IH BID [facility] Last Admin: 06/22/17 09:56 Dose: 2 puff Hydroxyurea (Hydrea -) 500 mg PO MoWeFr@1000 [facility] Last Admin: 06/21/17 09:28 Dose: 500 mg Methylprednisolone Sodium Succinate (Solu-Medrol -) 40 mg IVPUSH Q8H-IV [facility] Last Admin: 06/22/17 09:55 Dose: 40 mg Metoprolol Succinate (Toprol Xl -) 25 mg PO DAILY [facility] Last Admin: 06/22/17 09:56 Dose: 25 mg Linzess 72 Mcg (Capsule) 1 each PO DAILY [facility] Last Admin: 06/22/17 09:57 Dose: 1 each Pantoprazole Sodium (Protonix -) 20 mg PO DAILY [facility] Last Admin: 06/22/17 09:55 Dose: 20 mg Roflumilast (Daliresp -) 500 mcg PO DAILY [facility] Last Admin: 06/22/17 09:56 Dose: 500 mcg Trazodone HCl (Desyrel -) 100 mg PO HS [facility] Last Admin: 06/21/17 21:15 Dose: 100 mg - Objective Vital Signs: Vital Signs Temperature 98.5 F 06/22/17 11:17 Pulse Rate 92 H 06/22/17 11:17 Respiratory Rate 20 06/22/17 11:17 Blood Pressure 138/80 06/22/17 11:17 O2 Sat by Pulse Oximetry (%) 97 06/22/17 09:00 Constitutional: Yes: Calm Eyes: Yes: Conjunctiva Clear HENT: Yes: Atraumatic Cardiovascular: Yes: S1, S2 Respiratory: Yes: Diminished, On Nasal O2, Wheezes Gastrointestinal: Yes: Soft Genitourinary: Yes: WNL Musculoskeletal: Yes: WNL Edema: No Neurological: Yes: Oriented Psychiatric: Yes: Oriented Labs: CBC, BMP 06/21/17 07:30 06/21/17 07:30 INR, PTT INR 1.20 (0.82-1.09) H 06/18/17 07:05 Problem List - Problems (1) CKD (chronic kidney disease) Code(s): N18.9 - CHRONIC KIDNEY DISEASE, UNSPECIFIED (2) Hyperkalemia Code(s): E87.5 - HYPERKALEMIA (3) COPD exacerbation Code(s): J44.1 - CHRONIC OBSTRUCTIVE PULMONARY DISEASE W (ACUTE) EXACERBATION (4) SOB (shortness of breath) Code(s): R06.02 - SHORTNESS OF BREATH (5) Acute renal failure Code(s): N17.9 - ACUTE KIDNEY FAILURE, UNSPECIFIED Assessment/Plan Current Medications Generic Name Dose Route Start Last Admin Trade Name Freq PRN Reason Stop Dose Admin Al Hydroxide/Mg Hydroxide 30 ml 06/17/17 18:36 06/18/17 16:41 Mylanta Oral Suspension - PO 30 ml Q6H PRN Administration INDIGESTION Albuterol Sulfate 1 amp 06/20/17 22:14 06/20/17 21:45 Ventolin 0.083% Nebulizer Soln - NEB 1 amp Q4H PRN Administration SHORT OF BREATH/WHEEZING Albuterol/Ipratropium 1 amp 06/21/17 08:00 06/22/17 08:20 Duoneb - NEB 1 amp RQID [facility] Administration Allopurinol 100 mg 06/15/17 10:00 06/22/17 10:28 Zyloprim - PO 100 mg DAILY [facility] Administration Alprazolam 0.25 mg 06/20/17 12:36 06/22/17 07:57 Xanax - PO 0.25 mg Q6H PRN Administration ANXIETY Anagrelide HCl 1 mg 06/15/17 22:00 06/22/17 13:45 Agrylin PO 1 mg TID [facility] Administration Aspirin 81 mg 06/15/17 10:00 06/22/17 09:55 Asa - PO 81 mg DAILY [facility] Administration Budesonide/Formoterol Fumarate 2 puff 06/14/17 22:00 06/22/17 09:56 Symbicort 160/4.5mcg - IH 2 puff BID [facility] Administration Hydroxyurea 500 mg 06/16/17 10:00 06/21/17 09:28 Hydrea - PO 500 mg MoWeFr@1000 [facility] Administration Methylprednisolone Sodium Succinate 40 mg 06/20/17 18:00 06/22/17 09:55 Solu-Medrol - IVPUSH 40 mg Q8H-IV [facility] Administration Metoprolol Succinate 25 mg 06/22/17 10:00 06/22/17 09:56 Toprol Xl - PO 25 mg DAILY [facility] Administration Linzess 72 Mcg 1 each 06/17/17 10:00 06/22/17 09:57 Capsule PO 1 each DAILY [facility] Administration Pantoprazole Sodium 20 mg 06/20/17 10:00 06/22/17 09:55 Protonix - PO 20 mg DAILY [facility] Administration Roflumilast 500 mcg 06/15/17 10:00 06/22/17 09:56 Daliresp - PO 500 mcg DAILY [facility] Administration Trazodone HCl 100 mg 06/15/17 23:00 06/21/17 21:15 Desyrel - PO 100 mg HS [facility] Administration Laboratory Tests 06/21/17 07:30 WBC 46.4 H* Plt Count 417 Impression 1. CKD with acute component 2. hyperkalemia - likely in part pseudohyperkalemia 3. copd exacerbation 4. essential thrombocytosis 5. htn 6. anxiety 7. diverticulosis 8. hemorrhoids 9. leukocytosis Plan - no bmp today - check labs in am - steroids with taper - elevated wbc contributes to high potassium Dr Argueta
[2017-06-22 15:40] LABS: ALBUMIN 3.2 g/dl (3.4-5.0); ALK PHOS 93 U/L (45-117); ANION GAP 7 (8-16); BILIRUBIN,TOTAL 0.3 mg/dL (0.2-1.0); BLOOD UREA NITROGEN 56 mg/dL (7-18); CHLORIDE 107 mmol/L (98-107); CO2 27 mmol/L (21-32); CREATININE 1.8 mg/dL (0.55-1.02); GLUCOSE,RANDOM 156 mg/dL (74-106); POTASSIUM 5.2 mmol/L (3.5-5.1); SGOT/AST 7 U/L (15-37); SGPT/ALT 26 U/L (12-78); SODIUM 141 mmol/L (136-145); TOT PROT 5.8 g/dl (6.4-8.2)
[2017-06-22 15:53] LABS: HEMATOCRIT 30.8 % (32.4-45.2); HEMOGLOBIN 9.3 GM/dL (10.7-15.3); MCH 28.7 pg (25.7-33.7); MCHC 30.3 g/dl (32.0-36.0); MEAN CELL VOLUME 94.8 fl (80-96); MEAN PLT VOLUME 11.5 fl (7.5-11.1); PLATELET COUNT 456 K/MM3 (134-434); RBC 3.25 M/mm3 (3.60-5.2); RDW 20.8 % (11.6-15.6); WHITE BLOOD COUNT 44.3 K/mm3 (4.0-10.0)
--- NOTE | 2017-06-22 16:46 | PN ---
Progress Note (short form) - Note Progress Note: Patient seen and examined continues to improve Cor: RSR, No murmurs, No gallops Lungs: decreased at bases Abd: Soft, Normal bowel sounds, No organomegaly Ext:No significant edema Last Vital Signs Temp Pulse Resp BP Pulse Ox 98 F 94 H 24 121/65 95 06/21/17 15:14 06/21/17 15:14 06/21/17 15:14 06/21/17 15:14 06/21/17 10:00 CBC, BMP 06/21/17 07:30 06/21/17 07:30 Current Medications Generic Name Dose Route Start Last Admin Trade Name Freq PRN Reason Stop Dose Admin Al Hydroxide/Mg Hydroxide 30 ml 06/17/17 18:36 06/18/17 16:41 Mylanta Oral Suspension - PO 30 ml Q6H PRN Administration INDIGESTION Albuterol Sulfate 1 amp 06/20/17 22:14 06/20/17 21:45 Ventolin 0.083% Nebulizer Soln - NEB 1 amp Q4H PRN Administration SHORT OF BREATH/WHEEZING Albuterol/Ipratropium 1 amp 06/21/17 08:00 06/21/17 16:00 Duoneb - NEB 1 amp RQID [facility] Administration Allopurinol 100 mg 06/15/17 10:00 06/21/17 10:30 Zyloprim - PO 100 mg DAILY [facility] Administration Alprazolam 0.25 mg 06/20/17 12:36 06/21/17 14:36 Xanax - PO 0.25 mg Q6H PRN Administration ANXIETY Anagrelide HCl 1 mg 06/15/17 22:00 06/21/17 13:59 Agrylin PO 1 mg TID [facility] Administration Aspirin 81 mg 06/15/17 10:00 06/21/17 09:29 Asa - PO 81 mg DAILY [facility] Administration Budesonide/Formoterol Fumarate 2 puff 06/14/17 22:00 06/21/17 09:33 Symbicort 160/4.5mcg - IH 2 puff BID [facility] Administration Hydroxyurea 500 mg 06/16/17 10:00 06/21/17 09:28 Hydrea - PO 500 mg MoWeFr@1000 [facility] Administration Methylprednisolone Sodium Succinate 40 mg 06/20/17 18:00 06/21/17 18:15 Solu-Medrol - IVPUSH 40 mg Q8H-IV [facility] Administration Metoprolol Succinate 25 mg 06/22/17 10:00 Toprol Xl - PO DAILY [facility] Linzess 72 Mcg 1 each 06/17/17 10:00 06/21/17 09:32 Capsule PO 1 each DAILY [facility] Administration Pantoprazole Sodium 20 mg 06/20/17 10:00 06/21/17 09:29 Protonix - PO 20 mg DAILY [facility] Administration Roflumilast 500 mcg 06/15/17 10:00 06/21/17 09:30 Daliresp - PO 500 mcg DAILY [facility] Administration Trazodone HCl 100 mg 06/15/17 23:00 06/20/17 21:25 Desyrel - PO 100 mg HS [facility] Administration for labs continues to be on hydrea and anagrelide steroid taper being done renal f/u noted
[2017-06-22 19:14] LABS: ANISOCYTOSIS 2+; PLATELET ESTIMATE ADEQUATE
[2017-06-22] MEDS ORDERED: PT OWN MED DRAWER 7, Y5N ONE ×2 (22:49→23:11)
[2017-06-22] MEDS: traZODone HCL 50 MG TABLET (FP) PO SCH (23:02)
[2017-06-23] MEDS: methylPREDNISolone NA SUCC 40 MG/1 ML VIAL IVPUSH SCH ×3 (02:18→21:10)
[2017-06-23] MEDS: ANAGRELIDE HCL 1 MG PO SCH ×3 (05:41→22:23)
[2017-06-23] MEDS: ALBUTEROL SO4 2.5/IPRATROPIUM 0.5 INH SOL 3 ML VIAL.NEB. NEB SCH ×4 (08:10→21:20)
[2017-06-23 08:12] LABS: HEMATOCRIT 26.5 % (32.4-45.2); MCH 28.2 pg (25.7-33.7); MEAN CELL VOLUME 93.9 fl (80-96); MEAN PLT VOLUME 11.6 fl (7.5-11.1); PLATELET COUNT 373 K/MM3 (134-434); RBC 2.82 M/mm3 (3.60-5.2); RDW 20.2 % (11.6-15.6)
[2017-06-23 08:16] LABS: ANION GAP 8 (8-16); BLOOD UREA NITROGEN 58 mg/dL (7-18); CALCIUM 8.1 mg/dL (8.5-10.1); CHLORIDE 106 mmol/L (98-107); CO2 29 mmol/L (21-32); GLUCOSE,RANDOM 85 mg/dL (74-106); SODIUM 143 mmol/L (136-145)
[2017-06-23 08:17] LABS: CREATININE 1.6 mg/dL (0.55-1.02)
[2017-06-23 08:32] LABS: WHITE BLOOD COUNT 36.4 K/mm3 (4.0-10.0)
[2017-06-23] MEDS ORDERED: PT OWN MED DRAWER 7, Y5N ONE ×3 (09:38→14:27)
[2017-06-23] MEDS: ASPIRIN 81 MG CHEWABLE TABLETS PO SCH (09:42)
[2017-06-23] MEDS: PANTOPRAZOLE 20 MG TABLET (FP) PO SCH (09:43)
[2017-06-23] MEDS: METOPROLOL SUCCINATE 25 MG TAB.SR.24H (FP) PO SCH (09:43)
[2017-06-23] MEDS: ROFLUMILAST 500 MCG TABLET PO SCH (09:43)
[2017-06-23] MEDS: BUDESONIDE/FORMETEROL FUMARATE 160/4.5 mcg INHALER IH SCH ×2 (09:43→22:24)
[2017-06-23] MEDS: HYDROXYUREA 500 MG CAPSULE PO SCH (09:43)
--- NOTE | 2017-06-23 09:43 | EKG ---
Test Reason : Blood Pressure : / mmHG Vent. Rate : 091 BPM Atrial Rate : 091 BPM P-R Int : 112 ms QRS Dur : 070 ms QT Int : 326 ms P-R-T Axes : 076 009 014 degrees QTc Int : 400 ms NORMAL SINUS RHYTHM ANTERIOR INFARCT , AGE UNDETERMINED ABNORMAL ECG WHEN COMPARED WITH ECG OF 19-JUN-2017 17:22, NO SIGNIFICANT CHANGE WAS FOUND Confirmed by SHAGUFTA TOLEDO MD ([id number] on 06/23/2017 9:43:32 AM Referred By: Confirmed By:SHAGUFTA TOLEDO MD
[2017-06-23] MEDS: LINZESS 72 MCG PO SCH (09:44)
[2017-06-23] MEDS: ALPRAZolam 0.25 MG TABLET PO PRN ×2 (11:03→19:44)
[2017-06-23] MEDS: ALLOPURINOL 100 MG TABLET (FP) PO SCH (11:03)
[2017-06-23] MEDS ORDERED: METOPROLOL SUCCINATE 25 MG TAB.SR.24H (FP) PO SCH (15:11)
--- NOTE | 2017-06-23 15:16 | PN ---
Progress Note, Physician Chief Complaint: COUGH/SOB PERSIST BUT IMPROVED History of Present Illness: STILL WITH COUGH/SCANT SPUTUM - Current Medication List Current Medications: Active Medications Al Hydroxide/Mg Hydroxide (Mylanta Oral Suspension -) 30 ml PO Q6H PRN PRN Reason: INDIGESTION Last Admin: 06/18/17 16:41 Dose: 30 ml Albuterol Sulfate (Ventolin 0.083% Nebulizer Soln -) 1 amp NEB Q4H PRN PRN Reason: SHORT OF BREATH/WHEEZING Last Admin: 06/20/17 21:45 Dose: 1 amp Albuterol/Ipratropium (Duoneb -) 1 amp NEB RQID [facility] Last Admin: 06/23/17 12:36 Dose: 1 amp Allopurinol (Zyloprim -) 100 mg PO DAILY [facility] Last Admin: 06/23/17 11:03 Dose: 100 mg Alprazolam (Xanax -) 0.25 mg PO Q6H PRN PRN Reason: ANXIETY Last Admin: 06/23/17 11:03 Dose: 0.25 mg Anagrelide HCl (Agrylin) 1 mg PO TID [facility] Last Admin: 06/23/17 14:30 Dose: 1 mg Aspirin (Asa -) 81 mg PO DAILY [facility] Last Admin: 06/23/17 09:42 Dose: 81 mg Budesonide/Formoterol Fumarate (Symbicort 160/4.5mcg -) 2 puff IH BID [facility] Last Admin: 06/23/17 09:43 Dose: 2 puff Hydroxyurea (Hydrea -) 500 mg PO MoWeFr@1000 [facility] Last Admin: 06/23/17 09:43 Dose: 500 mg Methylprednisolone Sodium Succinate (Solu-Medrol -) 40 mg IVPUSH Q8H-IV [facility] Last Admin: 06/23/17 09:43 Dose: 40 mg Metoprolol Succinate (Toprol Xl -) 12.5 mg PO DAILY [facility] Linzess 72 Mcg (Capsule) 1 each PO DAILY [facility] Last Admin: 06/23/17 09:44 Dose: Not Given Pantoprazole Sodium (Protonix -) 20 mg PO DAILY [facility] Last Admin: 06/23/17 09:43 Dose: 20 mg Roflumilast (Daliresp -) 500 mcg PO DAILY [facility] Last Admin: 06/23/17 09:43 Dose: 500 mcg Trazodone HCl (Desyrel -) 100 mg PO HS [facility] Last Admin: 06/22/17 23:02 Dose: 100 mg - Objective Vital Signs: Vital Signs Temperature 98.5 F 06/23/17 14:56 Pulse Rate 87 06/23/17 14:56 Respiratory Rate 23 06/23/17 14:56 Blood Pressure 141/70 06/23/17 14:56 O2 Sat by Pulse Oximetry (%) 97 06/22/17 21:00 Constitutional: Yes: Anxious Eyes: Yes: EOM Intact HENT: Yes: Normocephalic Neck: Yes: Trachea Midline Cardiovascular: Yes: Regular Rate and Rhythm, S1, S2 Respiratory: Yes: Poor Air Entry, Wheezes Gastrointestinal: Yes: Normal Bowel Sounds Edema: LLE: 1+, RLE: 1+ Neurological: Yes: Alert Labs: CBC, BMP 06/23/17 07:05 06/23/17 07:05 INR, PTT INR 1.20 (0.82-1.09) H 06/18/17 07:05 - ....Imaging Chest X-ray: Report Reviewed, Image Reviewed EKG: Report Reviewed, Image Reviewed Other: Report Reviewed (HOLTOR) Problem List - Problems (1) Chronic respiratory failure Code(s): J96.10 - CHRONIC RESPIRATORY FAILURE, UNSP W HYPOXIA OR HYPERCAPNIA (2) CKD (chronic kidney disease) Code(s): N18.9 - CHRONIC KIDNEY DISEASE, UNSPECIFIED (3) COPD exacerbation Code(s): J44.1 - CHRONIC OBSTRUCTIVE PULMONARY DISEASE W (ACUTE) EXACERBATION (4) Hyperkalemia Code(s): E87.5 - HYPERKALEMIA (5) SOB (shortness of breath) Code(s): R06.02 - SHORTNESS OF BREATH Assessment/Plan Scheduled DuoNeb Daliresp Symbicort Heme/Renal evaluations appreciated ABX held NIPPV Support as needed SCDs O2 as needed Continue home meds. Taper steroids Reduce metoprolol to 12.5 discharge planning for tomorrow Sandeep LYNN MD
--- NOTE | 2017-06-23 16:22 | PN ---
Progress Note, Physician History of Present Illness: Pt seen and examined at bedside. She still complains of shortness of breath. - Current Medication List Current Medications: Active Medications Al Hydroxide/Mg Hydroxide (Mylanta Oral Suspension -) 30 ml PO Q6H PRN PRN Reason: INDIGESTION Last Admin: 06/18/17 16:41 Dose: 30 ml Albuterol Sulfate (Ventolin 0.083% Nebulizer Soln -) 1 amp NEB Q4H PRN PRN Reason: SHORT OF BREATH/WHEEZING Last Admin: 06/20/17 21:45 Dose: 1 amp Albuterol/Ipratropium (Duoneb -) 1 amp NEB RQID [facility] Last Admin: 06/23/17 12:36 Dose: 1 amp Allopurinol (Zyloprim -) 100 mg PO DAILY [facility] Last Admin: 06/23/17 11:03 Dose: 100 mg Alprazolam (Xanax -) 0.25 mg PO Q6H PRN PRN Reason: ANXIETY Last Admin: 06/23/17 11:03 Dose: 0.25 mg Anagrelide HCl (Agrylin) 1 mg PO TID [facility] Last Admin: 06/23/17 14:30 Dose: 1 mg Aspirin (Asa -) 81 mg PO DAILY [facility] Last Admin: 06/23/17 09:42 Dose: 81 mg Budesonide/Formoterol Fumarate (Symbicort 160/4.5mcg -) 2 puff IH BID [facility] Last Admin: 06/23/17 09:43 Dose: 2 puff Hydroxyurea (Hydrea -) 500 mg PO MoWeFr@1000 [facility] Last Admin: 06/23/17 09:43 Dose: 500 mg Methylprednisolone Sodium Succinate (Solu-Medrol -) 40 mg IVPUSH Q8H-IV [facility] Last Admin: 06/23/17 09:43 Dose: 40 mg Metoprolol Succinate (Toprol Xl -) 12.5 mg PO DAILY [facility] Linzess 72 Mcg (Capsule) 1 each PO DAILY [facility] Last Admin: 06/23/17 09:44 Dose: Not Given Pantoprazole Sodium (Protonix -) 20 mg PO DAILY [facility] Last Admin: 06/23/17 09:43 Dose: 20 mg Roflumilast (Daliresp -) 500 mcg PO DAILY [facility] Last Admin: 06/23/17 09:43 Dose: 500 mcg Trazodone HCl (Desyrel -) 100 mg PO HS [facility] Last Admin: 06/22/17 23:02 Dose: 100 mg - Objective Vital Signs: Vital Signs Temperature 98.5 F 06/23/17 14:56 Pulse Rate 87 06/23/17 14:56 Respiratory Rate 23 06/23/17 14:56 Blood Pressure 141/70 06/23/17 14:56 O2 Sat by Pulse Oximetry (%) 97 06/22/17 21:00 Constitutional: Yes: Calm Eyes: Yes: Conjunctiva Clear HENT: Yes: Atraumatic Neck: Yes: Supple Cardiovascular: Yes: S1, S2 Respiratory: Yes: On Nasal O2, Wheezes Gastrointestinal: Yes: WNL Genitourinary: Yes: WNL Musculoskeletal: Yes: WNL Extremities: Yes: WNL Edema: No Neurological: Yes: Oriented Psychiatric: Yes: Oriented Labs: CBC, BMP 06/23/17 07:05 06/23/17 07:05 INR, PTT INR 1.20 (0.82-1.09) H 06/18/17 07:05 Problem List - Problems (1) CKD (chronic kidney disease) Code(s): N18.9 - CHRONIC KIDNEY DISEASE, UNSPECIFIED (2) Hyperkalemia Code(s): E87.5 - HYPERKALEMIA (3) COPD exacerbation Code(s): J44.1 - CHRONIC OBSTRUCTIVE PULMONARY DISEASE W (ACUTE) EXACERBATION (4) SOB (shortness of breath) Code(s): R06.02 - SHORTNESS OF BREATH (5) Acute renal failure Code(s): N17.9 - ACUTE KIDNEY FAILURE, UNSPECIFIED Assessment/Plan Current Medications Generic Name Dose Route Start Last Admin Trade Name Freq PRN Reason Stop Dose Admin Al Hydroxide/Mg Hydroxide 30 ml 06/17/17 18:36 06/18/17 16:41 Mylanta Oral Suspension - PO 30 ml Q6H PRN Administration INDIGESTION Albuterol Sulfate 1 amp 06/20/17 22:14 06/20/17 21:45 Ventolin 0.083% Nebulizer Soln - NEB 1 amp Q4H PRN Administration SHORT OF BREATH/WHEEZING Albuterol/Ipratropium 1 amp 06/21/17 08:00 06/23/17 12:36 Duoneb - NEB 1 amp RQID [facility] Administration Allopurinol 100 mg 06/15/17 10:00 06/23/17 11:03 Zyloprim - PO 100 mg DAILY [facility] Administration Alprazolam 0.25 mg 06/20/17 12:36 06/23/17 11:03 Xanax - PO 0.25 mg Q6H PRN Administration ANXIETY Anagrelide HCl 1 mg 06/15/17 22:00 06/23/17 14:30 Agrylin PO 1 mg TID [facility] Administration Aspirin 81 mg 06/15/17 10:00 06/23/17 09:42 Asa - PO 81 mg DAILY [facility] Administration Budesonide/Formoterol Fumarate 2 puff 06/14/17 22:00 06/23/17 09:43 Symbicort 160/4.5mcg - IH 2 puff BID [facility] Administration Hydroxyurea 500 mg 06/16/17 10:00 06/23/17 09:43 Hydrea - PO 500 mg MoWeFr@1000 [facility] Administration Methylprednisolone Sodium Succinate 40 mg 06/20/17 18:00 06/23/17 09:43 Solu-Medrol - IVPUSH 40 mg Q8H-IV [facility] Administration Metoprolol Succinate 12.5 mg 06/23/17 15:11 Toprol Xl - PO DAILY [facility] Linzess 72 Mcg 1 each 06/17/17 10:00 06/23/17 09:44 Capsule PO Not Given DAILY [facility] Pantoprazole Sodium 20 mg 06/20/17 10:00 06/23/17 09:43 Protonix - PO 20 mg DAILY [facility] Administration Roflumilast 500 mcg 06/15/17 10:00 06/23/17 09:43 Daliresp - PO 500 mcg DAILY [facility] Administration Trazodone HCl 100 mg 06/15/17 23:00 06/22/17 23:02 Desyrel - PO 100 mg HS [facility] Administration Laboratory Tests 06/22/17 06/23/17 14:45 07:05 WBC 44.3 H* Potassium 5.0 Creatinine 1.6 H Impression 1. CKD with acute component 2. hyperkalemia - likely in part pseudohyperkalemia 3. copd exacerbation 4. essential thrombocytosis 5. htn 6. anxiety 7. diverticulosis 8. hemorrhoids 9. leukocytosis Plan - labs reviewed - potassium is stable - renal function is stable - can follow with Dr Degroot as outpt, has an appointment in 2 weeks - discussed plan with pt - will follow PRN - steroids with taper per pulm Dr Argueta
--- NOTE | 2017-06-23 16:28 | PN ---
Progress Note (short form) - Note Progress Note: Patient seen and examined Tired and fatigued Somewhat SOB and dyspneic on minimal exertion Cough persists Last Vital Signs Temp Pulse Resp BP Pulse Ox 98.5 F 87 23 141/70 97 06/23/17 14:56 06/23/17 14:56 06/23/17 14:56 06/23/17 14:56 06/22/17 21:00 HEENT: TONEY, EOM Intact Oropharynx: No thrush, No mucositis Neck: Supple Nodes: Without adenopathy Breasts: Without masses Cor: RSR, No murmurs, No gallops Lungs: Clear to P&A Abd: Soft, Normal bowel sounds, No organomegaly Ext:No significant edema Skin: No rashes, Integument intact CBC, BMP 06/23/17 07:05 06/23/17 07:05 Current Medications Generic Name Dose Route Start Last Admin Trade Name Freq PRN Reason Stop Dose Admin Al Hydroxide/Mg Hydroxide 30 ml 06/17/17 18:36 06/18/17 16:41 Mylanta Oral Suspension - PO 30 ml Q6H PRN Administration INDIGESTION Albuterol Sulfate 1 amp 06/20/17 22:14 06/20/17 21:45 Ventolin 0.083% Nebulizer Soln - NEB 1 amp Q4H PRN Administration SHORT OF BREATH/WHEEZING Albuterol/Ipratropium 1 amp 06/21/17 08:00 06/23/17 12:36 Duoneb - NEB 1 amp RQID [facility] Administration Allopurinol 100 mg 06/15/17 10:00 06/23/17 11:03 Zyloprim - PO 100 mg DAILY [facility] Administration Alprazolam 0.25 mg 06/20/17 12:36 06/23/17 11:03 Xanax - PO 0.25 mg Q6H PRN Administration ANXIETY Anagrelide HCl 1 mg 06/15/17 22:00 06/23/17 14:30 Agrylin PO 1 mg TID [facility] Administration Aspirin 81 mg 06/15/17 10:00 06/23/17 09:42 Asa - PO 81 mg DAILY [facility] Administration Budesonide/Formoterol Fumarate 2 puff 06/14/17 22:00 06/23/17 09:43 Symbicort 160/4.5mcg - IH 2 puff BID [facility] Administration Hydroxyurea 500 mg 06/16/17 10:00 06/23/17 09:43 Hydrea - PO 500 mg MoWeFr@1000 [facility] Administration Methylprednisolone Sodium Succinate 40 mg 06/20/17 18:00 06/23/17 09:43 Solu-Medrol - IVPUSH 40 mg Q8H-IV [facility] Administration Metoprolol Succinate 12.5 mg 06/23/17 15:11 Toprol Xl - PO DAILY [facility] Linzess 72 Mcg 1 each 06/17/17 10:00 06/23/17 09:44 Capsule PO Not Given DAILY [facility] Pantoprazole Sodium 20 mg 06/20/17 10:00 06/23/17 09:43 Protonix - PO 20 mg DAILY [facility] Administration Roflumilast 500 mcg 06/15/17 10:00 06/23/17 09:43 Daliresp - PO 500 mcg DAILY [facility] Administration Trazodone HCl 100 mg 06/15/17 23:00 06/22/17 23:02 Desyrel - PO 100 mg HS [facility] Administration Impression: Exacerbation of COPD- improving MPD on ASA, agrylin and hydrea. Elevated WBC- likely secondary to MPD, infection, steroids For office follow up.
--- NOTE | 2017-06-23 19:04 | PN ---
Progress Note, Physician History of Present Illness: Dyspnea, palpitations, non-productive cough slowly improving. Toprol XL dose reduced due to fatigue. - Current Medication List Current Medications: Active Medications Al Hydroxide/Mg Hydroxide (Mylanta Oral Suspension -) 30 ml PO Q6H PRN PRN Reason: INDIGESTION Last Admin: 06/18/17 16:41 Dose: 30 ml Albuterol Sulfate (Ventolin 0.083% Nebulizer Soln -) 1 amp NEB Q4H PRN PRN Reason: SHORT OF BREATH/WHEEZING Last Admin: 06/20/17 21:45 Dose: 1 amp Albuterol/Ipratropium (Duoneb -) 1 amp NEB RQID [facility] Last Admin: 06/23/17 17:10 Dose: 1 amp Allopurinol (Zyloprim -) 100 mg PO DAILY [facility] Last Admin: 06/23/17 11:03 Dose: 100 mg Alprazolam (Xanax -) 0.25 mg PO Q6H PRN PRN Reason: ANXIETY Last Admin: 06/23/17 11:03 Dose: 0.25 mg Anagrelide HCl (Agrylin) 1 mg PO TID [facility] Last Admin: 06/23/17 14:30 Dose: 1 mg Aspirin (Asa -) 81 mg PO DAILY [facility] Last Admin: 06/23/17 09:42 Dose: 81 mg Budesonide/Formoterol Fumarate (Symbicort 160/4.5mcg -) 2 puff IH BID [facility] Last Admin: 06/23/17 09:43 Dose: 2 puff Hydroxyurea (Hydrea -) 500 mg PO MoWeFr@1000 [facility] Last Admin: 06/23/17 09:43 Dose: 500 mg Methylprednisolone Sodium Succinate (Solu-Medrol -) 40 mg IVPUSH Q8H-IV [facility] Last Admin: 06/23/17 09:43 Dose: 40 mg Metoprolol Succinate (Toprol Xl -) 12.5 mg PO DAILY [facility] Linzess 72 Mcg (Capsule) 1 each PO DAILY [facility] Last Admin: 06/23/17 09:44 Dose: Not Given Pantoprazole Sodium (Protonix -) 20 mg PO DAILY [facility] Last Admin: 06/23/17 09:43 Dose: 20 mg Roflumilast (Daliresp -) 500 mcg PO DAILY [facility] Last Admin: 06/23/17 09:43 Dose: 500 mcg Trazodone HCl (Desyrel -) 100 mg PO HS [facility] Last Admin: 06/22/17 23:02 Dose: 100 mg - Objective Vital Signs: Vital Signs Temperature 98.8 F 06/23/17 18:00 Pulse Rate 108 H 06/23/17 18:00 Respiratory Rate 20 06/23/17 18:00 Blood Pressure 132/69 06/23/17 18:00 O2 Sat by Pulse Oximetry (%) 99 06/23/17 17:00 Constitutional: Yes: No Distress, Calm, Thin Neck: Yes: Supple Cardiovascular: Yes: Regular Rate and Rhythm Respiratory: Yes: Regular, Diminished, On Nasal O2 Gastrointestinal: Yes: Normal Bowel Sounds, Soft Edema: No Labs: CBC, BMP 06/23/17 07:05 06/23/17 07:05 INR, PTT INR 1.20 (0.82-1.09) H 06/18/17 07:05 Problem List - Problems (1) Anemia Code(s): D64.9 - ANEMIA, UNSPECIFIED Qualifiers: Anemia type: due to chronic kidney disease Chronic kidney disease stage: stage 2 (mild) Qualified Code(s): N18.2 - Chronic kidney disease, stage 2 ( mild); D63.1 - Anemia in chronic kidney disease; D63.1 - Anemia in chronic kidney disease (2) Palpitation Code(s): R00.2 - PALPITATIONS (3) Sinus tachycardia Code(s): R00.0 - TACHYCARDIA, UNSPECIFIED (4) COPD exacerbation Code(s): J44.1 - CHRONIC OBSTRUCTIVE PULMONARY DISEASE W (ACUTE) EXACERBATION (5) Anxiety Code(s): F41.9 - ANXIETY DISORDER, UNSPECIFIED (6) Leukocytosis Code(s): D72.829 - ELEVATED WHITE BLOOD CELL COUNT, UNSPECIFIED Qualifiers: Leukocytosis type: unspecified Qualified Code(s): D72.829 - Elevated white blood cell count, unspecified (7) Myeloproliferative disorder Code(s): D47.1 - CHRONIC MYELOPROLIFERATIVE DISEASE Assessment/Plan 06/20/2017 Transthoracic echocardiography: Normal LV size with hyperdynamic LV fxn, normal atrial sizes, tr MR, TR 06/20/2017 Holter: NSR, rare PAC, PVC 1. Palpitations - Rare PAC, PVC 2. Sinus tachycardia referable to acute exacerbation of home-O2 dependent COPD improving 3. Myeloproliferative disorder 4. Leukocytosis from steroids and MPD 5. Acute on CKD improved PLAN: 1. Bronchodilators, O2, IV steroid taper with GI protection, Daliresp, NIPPV support as needed 2. Monitor renal function and electrolytes 3. ASA 81 qd and change Toprol XL 12.5 qd to Bystolic 2.5 qd to minimize side effects
[2017-06-23] MEDS: traZODone HCL 50 MG TABLET (FP) PO SCH (22:23)
[2017-06-24] MEDS: methylPREDNISolone NA SUCC 40 MG/1 ML VIAL IVPUSH SCH ×2 (02:01→09:55)
[2017-06-24] MEDS: ANAGRELIDE HCL 1 MG PO SCH (06:16)
[2017-06-24] MEDS: ALPRAZolam 0.25 MG TABLET PO PRN (08:27)
[2017-06-24] MEDS: ALBUTEROL SO4 2.5/IPRATROPIUM 0.5 INH SOL 3 ML VIAL.NEB. NEB SCH ×2 (09:00→11:30)
[2017-06-24] MEDS ORDERED: PT OWN MED DRAWER 7, Y5N ONE (09:19)
[2017-06-24] MEDS: BUDESONIDE/FORMETEROL FUMARATE 160/4.5 mcg INHALER IH SCH (09:54)
[2017-06-24] MEDS: ASPIRIN 81 MG CHEWABLE TABLETS PO SCH (09:55)
[2017-06-24] MEDS: PANTOPRAZOLE 20 MG TABLET (FP) PO SCH (09:55)
[2017-06-24] MEDS: ROFLUMILAST 500 MCG TABLET PO SCH (09:55)
[2017-06-24] MEDS: LINZESS 72 MCG PO SCH (09:56)
[2017-06-24] MEDS ORDERED: NEBIVOLOL 2.5 MG TABLET (FP) PO SCH (10:00)
[2017-06-24 10:04] VITALS: BP 119/67; PULSE 114; TEMP 98.2
--- NOTE | 2017-06-24 10:42 | DS ---
Physical Examination Vital Signs: Vital Signs Temperature 98.2 F 06/24/17 09:53 Pulse Rate 114 H 06/24/17 09:53 Respiratory Rate 18 06/24/17 09:53 Blood Pressure 119/67 06/24/17 09:53 O2 Sat by Pulse Oximetry (%) 98 06/24/17 09:00 Constitutional: Yes: Calm Eyes: Yes: EOM Intact HENT: Yes: Normocephalic Neck: Yes: Trachea Midline Cardiovascular: Yes: Regular Rate and Rhythm Respiratory: Yes: Rhonchi Gastrointestinal: Yes: Soft Edema: No Labs: CBC, BMP 06/23/17 07:05 06/23/17 07:05 REST REVIEWED Discharge Summary Reason For Visit: OBSTRUCTIVE CHRONIC BRONCHITIS Current Active Problems CKD (chronic kidney disease) (Acute) COPD exacerbation (Acute) Chronic respiratory failure (Acute) Hyperkalemia (Acute) Palpitation (Acute) SOB (shortness of breath) (Acute) Sinus tachycardia (Acute) Condition: Fair - Instructions Referrals: Piero Lynn MD [Primary Care Provider] - - Home Medications Comprehensive Discharge Medication List: Ambulatory Orders Albuterol Sulfate [Proair Hfa -] 1 - 2 inh PO PRN PRN 01/28/14 Aspirin [ASA -] 81 mg PO DAILY 10/30/15 Hydroxyurea [Hydrea] 500 mg PO ASDIR #30 11/03/15 Alprazolam [Xanax] 0.25 mg PO TID PRN 07/21/16 Budesonide/Formeterol Fumarate [SYMBICORT 160/4.5mcg -] 2 puff IH BID inhaler 08/12/16 Trazodone HCl [Desyrel -] 100 mg PO HS tablet 08/12/16 Allopurinol [Zyloprim -] 100 mg PO DAILY 11/14/16 Anagrelide HCl [Agrylin -] 0.5 mg PO Q3H6XD 11/14/16 Docusate Sodium [Colace -] 100 mg PO BID 11/14/16 Linaclotide [Linzess] 72 mcg PO Q2D 02/06/17 Tiotropium Br/Olodaterol HCl [Stiolto Respimat Inhal [place]] 4 gm IH BID #1 mist.inhal 02/09/17 PIERO LYNN MD
[2017-06-24] MEDS: ALLOPURINOL 100 MG TABLET (FP) PO SCH (11:09)
--- NOTE | 2017-06-24 12:41 | PN ---
Progress Note, Physician Chief Complaint: Events noted Feels better History of Present Illness: Patient was seen and examined. Awake and alert. Chart was reviewed Denies chest pain. Feels better except intermittent palpitation - Current Medication List Current Medications: Active Medications Al Hydroxide/Mg Hydroxide (Mylanta Oral Suspension -) 30 ml PO Q6H PRN PRN Reason: INDIGESTION Last Admin: 06/18/17 16:41 Dose: 30 ml Albuterol Sulfate (Ventolin 0.083% Nebulizer Soln -) 1 amp NEB Q4H PRN PRN Reason: SHORT OF BREATH/WHEEZING Last Admin: 06/20/17 21:45 Dose: 1 amp Albuterol/Ipratropium (Duoneb -) 1 amp NEB RQID [facility] Last Admin: 06/24/17 11:30 Dose: 1 amp Allopurinol (Zyloprim -) 100 mg PO DAILY [facility] Last Admin: 06/24/17 11:09 Dose: 100 mg Alprazolam (Xanax -) 0.25 mg PO Q6H PRN PRN Reason: ANXIETY Last Admin: 06/24/17 08:27 Dose: 0.25 mg Anagrelide HCl (Agrylin) 1 mg PO TID [facility] Last Admin: 06/24/17 06:16 Dose: 1 mg Aspirin (Asa -) 81 mg PO DAILY [facility] Last Admin: 06/24/17 09:55 Dose: 81 mg Budesonide/Formoterol Fumarate (Symbicort 160/4.5mcg -) 2 puff IH BID [facility] Last Admin: 06/24/17 09:54 Dose: 2 puff Hydroxyurea (Hydrea -) 500 mg PO MoWeFr@1000 [facility] Last Admin: 06/23/17 09:43 Dose: 500 mg Methylprednisolone Sodium Succinate (Solu-Medrol -) 40 mg IVPUSH Q8H-IV [facility] Last Admin: 06/24/17 09:55 Dose: 40 mg Nebivolol (Bystolic -) 2.5 mg PO DAILY [facility] Last Admin: 06/24/17 09:56 Dose: 2.5 mg Linzess 72 Mcg (Capsule) 1 each PO DAILY [facility] Last Admin: 06/24/17 09:56 Dose: Not Given Pantoprazole Sodium (Protonix -) 20 mg PO DAILY [facility] Last Admin: 06/24/17 09:55 Dose: 20 mg Roflumilast (Daliresp -) 500 mcg PO DAILY [facility] Last Admin: 06/24/17 09:55 Dose: 500 mcg Trazodone HCl (Desyrel -) 100 mg PO HS [facility] Last Admin: 06/23/17 22:23 Dose: 100 mg - Objective Vital Signs: Vital Signs Temperature 98.2 F 06/24/17 09:53 Pulse Rate 114 H 06/24/17 09:53 Respiratory Rate 18 06/24/17 09:53 Blood Pressure 119/67 06/24/17 09:53 O2 Sat by Pulse Oximetry (%) 98 06/24/17 09:00 Constitutional: Yes: Well Nourished Eyes: Yes: PERRL HENT: Yes: Atraumatic Neck: Yes: Supple Cardiovascular: Yes: Regular Rate and Rhythm, Tachycardia, S1, S2 Respiratory: Yes: CTA Bilaterally, Diminished Gastrointestinal: Yes: Normal Bowel Sounds, Soft. No: Tenderness Edema: No Labs: CBC, BMP 06/23/17 07:05 06/23/17 07:05 Problem List - Problems (1) CKD (chronic kidney disease) Code(s): N18.9 - CHRONIC KIDNEY DISEASE, UNSPECIFIED (2) COPD exacerbation Code(s): J44.1 - CHRONIC OBSTRUCTIVE PULMONARY DISEASE W (ACUTE) EXACERBATION (3) Palpitation Code(s): R00.2 - PALPITATIONS (4) SOB (shortness of breath) Code(s): R06.02 - SHORTNESS OF BREATH (5) Sinus tachycardia Code(s): R00.0 - TACHYCARDIA, UNSPECIFIED (6) COPD (chronic obstructive pulmonary disease) with acute bronchitis Code(s): J44.0 - CHRONIC OBSTRUCTIVE PULMON DISEASE W ACUTE LOWER RESP INFCT (7) Diverticulosis Code(s): K57.90 - DVRTCLOS OF INTEST, PART UNSP, W/O PERF OR ABSCESS W/O BLEED (8) Essential thrombocytosis Code(s): D47.3 - ESSENTIAL (HEMORRHAGIC) THROMBOCYTHEMIA (9) IBS (irritable bowel syndrome) Code(s): K58.9 - IRRITABLE BOWEL SYNDROME WITHOUT DIARRHEA (10) Leukocytosis Code(s): D72.829 - ELEVATED WHITE BLOOD CELL COUNT, UNSPECIFIED Qualifiers: Leukocytosis type: unspecified Qualified Code(s): D72.829 - Elevated white blood cell count, unspecified (11) Myeloproliferative disorder Code(s): D47.1 - CHRONIC MYELOPROLIFERATIVE DISEASE Assessment/Plan 1. Palpitations 2. Sinus tachycardia referable to acute exacerbation of home-O2 dependent COPD 3. Myeloproliferative disorder 4. Leukocytosis from steroids 5. Acute on CKD PLAN: 1. Currently prescribed Bysolic as tolerated 2. Continue bronchodilators 4. ASA 81 qd Patient is to follow up in our office. Bhavik Miranda MD
== END 2017-06-24 12:51 | disposition home or self-care (01) | DRG 191 ==
LOC: JER 16:35 → JERBED 19:44 → J5S 23:33
PROVIDERS: ADMIT Specialist; ATTEND Specialist
DX: J44.1 Chronic obstructive pulmonary disease with (acute) exacerbation (principal); C94.6 Myelodysplastic disease, not elsewhere classified; N17.9 Acute kidney failure, unspecified; D64.9 Anemia, unspecified; F41.9 Anxiety disorder, unspecified; J20.9 Acute bronchitis, unspecified; R00.0 Tachycardia, unspecified; D72.829 Elevated white blood cell count, unspecified; N18.9 Chronic kidney disease, unspecified; E87.5 Hyperkalemia; R00.2 Palpitations; D47.3 Essential (hemorrhagic) thrombocythemia; K57.90 Diverticulosis of intestine, part unspecified, without perforation or abscess without bleeding; K64.9 Unspecified hemorrhoids; Z87.891 Personal history of nicotine dependence; K58.9 Irritable bowel syndrome, unspecified
CPT/HCPCS: 36415; 36600; 71045-TC; 80048; 80053; 81003; 82375; 82550; 82803; 83050; 83615; 83735; 83880; 84100; 84132; 84443; 84484; 84550; 85025; 85027; 85610; 85730; 87804; 87899; 93005; 93010; 93225; 93226; 93306-TC; 94640; 94660; 99285-25; J8999

== ENCOUNTER 2017-10-25 13:11 | Observation (INO) | payer OTHER, MEDICARE ==
--- NOTE | 2017-10-25 13:41 | PDOC ---
History of Present Illness - General Chief Complaint: Headache Stated Complaint: HEADACHE' Time Seen by Provider: 10/25/17 13:41 - History of Present Illness Initial Comments: 10/25/17 14:07 67 year old female with PMH of COPD stag IV,(home O2 2-3 Liters), MPD ( thrombocythemia), anxiety, hemorrhoids, diverticulosis, cardiomegaly, splenomegaly, and hepatomegaly presenting with 4-5 days of intermittent sharp temporal headaches. Patient states that the headaches were sudden onset without trauma or acute stress. She describes the headaches as sharp, without inciting event/ prodrome, intermittent (on and off every 10-20 minutes. They do not wake her up out of bed, or cause tearing, or other symptoms. Denies tenderness to the temples. Denies relief with her 1 G Tylenol daily. She is on chronic home O2 and has no need for increased O2, fevers, chills, worsening cough, nausea, vomiting, diarrhea, constipation, or other symptoms. Past History - Past Medical History Allergies/Adverse Reactions: Allergies Allergy/AdvReac Type Severity Reaction Status Date / Time Sulfa (Sulfonamide Allergy Severe Rash Verified 10/25/17 13:15 Antibiotics) Home Medications: Ambulatory Orders Albuterol Sulfate [Proair Hfa -] 1 - 2 inh PO PRN PRN 01/28/14 Aspirin [ASA -] 81 mg PO DAILY 10/30/15 Hydroxyurea [Hydrea] 500 mg PO ASDIR #30 11/03/15 Alprazolam [Xanax] 0.25 mg PO TID PRN 07/21/16 Budesonide/Formeterol Fumarate [SYMBICORT 160/4.5mcg -] 2 puff IH BID inhaler 08/12/16 traZODone HCL [Desyrel -] 100 mg PO HS tablet 08/12/16 Allopurinol [Zyloprim -] 100 mg PO DAILY 11/14/16 Anagrelide HCl [Agrylin -] 0.5 mg PO Q3H6XD 11/14/16 Docusate Sodium [Colace -] 100 mg PO BID 11/14/16 Linaclotide [Linzess] 72 mcg PO Q2D 02/06/17 Tiotropium Br/Olodaterol HCl [Stiolto Respimat Inhal [place]] 4 gm IH BID #1 mist.inhal 02/09/17 Albuterol 0.083% Nebulizer Chika [Ventolin 0.083% Nebulizer Soln -] 1 amp NEB Q4H PRN amp 06/24/17 Albuterol 2.5/Ipratropium 0.5 [Duoneb -] 1 amp NEB RQID amp 06/24/17 Allopurinol [Zyloprim -] 100 mg PO DAILY tablet 06/24/17 Alprazolam [Xanax] 0.25 mg PO Q6H PRN #30 tablet MDD 1 06/24/17 Anagrelide HCl [Agrylin] 1 mg PO TID capsule 06/24/17 Aspirin [ASA -] 81 mg PO DAILY tab.chew 06/24/17 Budesonide/Formeterol Fumarate [SYMBICORT 160/4.5mcg -] 2 puff IH BID inhaler 06/24/17 Hydroxyurea [Hydrea 500Mg Capsule -] 500 mg PO MoWeFr@1000 capsule 06/24/17 Mag Hydrox/Al Hydrox/Simeth [Mylanta Oral Suspension -] 30 ml PO Q6H PRN cup Nebivolol [Bystolic -] 2.5 mg PO DAILY #30 tab 06/24/17 Pantoprazole Sodium [Protonix -] 20 mg PO DAILY tablet.ec 06/24/17 Roflumilast [Daliresp -] 500 mcg PO DAILY 30 Days tablet 06/24/17 traZODone HCL [Desyrel -] 100 mg PO HS tablet 06/24/17 Anemia: No Asthma: No Cancer: Yes (BENIGN ADRENAL MASS) Cardiac Disorders: No CVA: No COPD: Yes CHF: No Dementia: No Diabetes: No GI Disorders: Yes (ibs,diverticulosis;ULCERATIVE/COLITIS/CROHN'S DISEASE) Disorders: Yes (kidney cysts) HTN: No Hypercholesterolemia: No Kidney Stones: Yes Liver Disease: No Psychiatric Problems: Yes (ANXIETY) Seizures: No Thyroid Disease: No - Surgical History Abdominal Surgery: Yes (PARTIAL RESECTION OF COLON) Appendectomy: No Cardiac Surgery: No Cholecystectomy: No Lung Surgery: No Neurologic Surgery: No Orthopedic Surgery: No - Immunization History Immunization Up to Date: Yes - Suicide/Smoking/Psychosocial Hx Smoking Status: Yes Smoking History: Former smoker Have you smoked in the past 12 months: No Number of Cigarettes Smoked Daily: 5 If you are a former smoker, when did you quit?: 2009 Information on smoking cessation initiated: No 'Breaking Loose' booklet given: 02/20/13 Hx Alcohol Use: No Drug/Substance Use Hx: No Substance Use Type: None Hx Substance Use Treatment: No Review of Systems - Review of Systems Constitutional: No: Chills, Diaphoresis, Fever HEENTM: No: Blurred Vision, Cataracts Respiratory: Yes: Cough, Shortness of Breath, SOB with Exertion Cardiac (ROS): No: Chest Pain, Irregular Heart Rate, Palpitations ABD/GI: No: Diarrhea, Nausea, Vomiting : No: Dysuria, Discharge, Frequency Musculoskeletal: No: Joint Pain, Muscle Pain, Neck Pain, Joint Stiffness Integumentary: No: Bruising, Change in Color, Lesions, Lumps Neurological: Yes: Headache. No: Numbness, Paresthesia, Seizure, Tingling Psychiatric: Yes: Anxiety. No: Depression Hematologic/Lymphatic: Yes: Other (thrombocythemia) *Physical Exam - Vital Signs Last Vital Signs Temp Pulse Resp BP Pulse Ox 98.6 F 118 H 28 H 153/80 93 L 10/25/17 13:15 10/25/17 13:15 10/25/17 13:15 10/25/17 13:15 10/25/17 13:15 - Physical Exam General Appearance: Yes: Nourished, Appropriately Dressed. No: Apparent Distress HEENT: positive: EOMI, JOSE D, Normal ENT Inspection, Normal Voice Neck: positive: Trachea midline, Normal Thyroid, Supple. negative: Tender, Rigid Respiratory/Chest: positive: Decreased Breath Sounds, Hyperresonant. negative: Chest Tender, Lungs Clear, Normal Breath Sounds, Respiratory Distress, Accessory Muscle Use, Labored Respiration Cardiovascular: positive: Regular Rhythm, Tachycardia. negative: Regular Rate Gastrointestinal/Abdominal: positive: Normal Bowel Sounds, Flat, Soft. negative : Tender Lymphatic: negative: Adenopathy, Tenderness Musculoskeletal: positive: Normal Inspection. negative: Decreased Range of Motion Extremity: positive: Normal Capillary Refill, Normal Inspection, Normal Range of Motion. negative: Tender Integumentary: positive: Normal Color, Dry, Warm Neurologic: positive: Fully Oriented, Alert, Normal Mood/Affect, Normal Response , Motor Strength 09/30 ED Treatment Course - LABORATORY CBC & Chemistry Diagram: 10/25/17 14:47 10/25/17 14:47 Medical Decision Making - Medical Decision Making Labs demonstrating leukocytosis to 36 (previous values elevated to 40s), platelets 650, and K 5.6 (slightly hemolyzed) with CT only demonstrating microvascular changes. Spoke to Dr. Hawkins and he agrees with MRI and would like to add MRV. Will admit patient under hospitalists and consult Dr. Lang for further workup. 10/25/17 16:46 Dr. Lang agrees with admission. Case discussed with Dr. Cotton (Medicine resident) and they will accept him to an observational stay. *DC/Admit/Observation/Transfer Diagnosis at time of Disposition: Visual symptom interfering with vision, Thrombocythemia, essential Headache Qualifiers: Headache type: unspecified Headache chronicity pattern: acute headache Intractability: intractable Qualified Code(s): R51 - Headache - Discharge Dispostion Condition at time of disposition: Stable Decision to Admit order: Yes - Referrals Referrals: Piero Ortiz MD [Primary Care Provider] - - Patient Instructions - Post Discharge Activity
[2017-10-25] MEDS ORDERED: METOCLOPRAMIDE HCL INJECTION 10 MG/2 ML VIAL IVPUSH ONE (14:00)
[2017-10-25] MEDS ORDERED: SODIUM CHLORIDE 1,000 ML IV STA (14:00)
[2017-10-25] MEDS ORDERED: ACETAMINOPHEN 1000 MG/100 ML VIAL (NON FORMULARY) IVPB ONE ×2 (14:00→14:13)
[2017-10-25] MEDS ORDERED: ALPRAZolam 0.25 MG TABLET PO ONE (14:14)
[2017-10-25] MEDS ORDERED: METOCLOPRAMIDE HCL INJECTION 10 MG/2 ML VIAL ONE (14:21)
[2017-10-25] MEDS ORDERED: ALPRAZolam 0.25 MG TABLET ONE ×2 (14:21→23:01)
[2017-10-25] MEDS ORDERED: ACETAMINOPHEN INJECTION 100 ML IVPB ONE (14:22)
--- NOTE | 2017-10-25 14:27 | PDOC ---
Attending Attestation - Resident Resident Name: Ely Macedo - ED Attending Attestation I have performed the following: I have examined & evaluated the patient, The case was reviewed & discussed with the resident, I agree w/resident's findings & plan, Exceptions are as noted - HPI HPI: 10/25/17 14:42 The patient is a 67 year old female with a significant past medical history of COPD on home O2 (3L), anxiety, myeloproliferative disorder, CKD (hide curer 1.4-1.6), and thrombocythemia, who presents to the emergency department with acute onset of episodic head pain for 4 days.Patient reports intermittent sudden onset of a sharp, temporal, alternating, "poking" pain that lasts for seconds, then resolves. She states initially, the poking sensation was on the left, but now is only on the right. She reports taking two 500mg Tylenol with mild relief of symptoms. She reports associated binocular floating lights, for which she was examined by an r d manager for about 3 months ago. She reports her symptoms do not wake her up from her sleep. She denies any trauma, dizziness, lightheadedness, photophobia, nausea, vomiting, neck or back pain, numbness, weakness or tingling. She denies any fever, chills, or cough. She denies any recent stressors, travel, or sick contacts. Allergies: NKDA Past SurgicaL History: Partial resection of colon Social History: Former smoker. No ETOH or recreational drug use. - Physicial Exam PE: 10/25/17 14:27 GENERAL: Awake, alert, and fully oriented, in no acute distress HEAD: No signs of trauma. No temporal ttp. EYES: PERRLA, EOMI, sclera anicteric, conjunctiva clear ENT: Auricles normal inspection, hearing grossly normal, nares patent, oropharynx clear without exudates. Moist mucosa. No lacrimation. NC in place NECK: Normal ROM, supple, no lymphadenopathy, JVD, or masses LUNGS: Breath sounds equal, diminished throughout. No wheezes, and no crackles HEART: Regular rate and rhythm, normal S1 and S2, no murmurs, rubs or gallops ABDOMEN: Soft, nontender, normoactive bowel sounds. No guarding, no rebound. No masses EXTREMITIES: Normal range of motion, no edema. No clubbing or cyanosis. No cords, erythema, or tenderness NEUROLOGICAL: Normal speech, cranial nerves intact, negative pronator drift, 5/ 5 strength in all 4 extremities, normal sensation to light touch in all 4 extremities, normal cerebellar exam, normal gait, normal reflexes and tone SKIN: Warm, Dry, normal turgor, no rashes or lesions noted. - Medical Decision Making 10/25/17 14:21 67yo F with MMP presents to the ED with migrating "poking" headache that lasts for seconds at a time a/w intermittent flashing lights. Vitals and exam unremarkable. Unlikely SAH as pain is poking, migrating, and lasts for seconds at a time. Pt is neuro intact Unlikely trigeminal neuralgia as pain doesn't radiate down the face Unlikely tension headache as severity is not consistent Unlikely cluster headache as no lacrimation Unclear etiology of headache, and patient does not get headaches typically. As such, will get CTH and try to treat headache in the meantime. Pt has seen Dr. Hawkins in the past, will discuss case with him. 10/25/17 18:23 CTH negative. Pt continues to have stabbing headache. Case discussed with Dr. Hawkins who recommends MRI/MRV. Pt admitted to Dr. Phillips for further mgmt/dispo.
[2017-10-25 15:22] LABS: INR 1.09 (0.82-1.09); PROTHROMBIN TIME (PATIENT) 12.3 SEC (9.7-13.0)
[2017-10-25 15:40] LABS: ALBUMIN 3.8 g/dl (3.4-5.0); ALK PHOS 98 U/L (45-117); ANION GAP 6 (8-16); BILIRUBIN,TOTAL 0.4 mg/dL (0.2-1.0); BLOOD UREA NITROGEN 41 mg/dL (7-18); CALCIUM 8.8 mg/dL (8.5-10.1); CHLORIDE 103 mmol/L (98-107); CO2 30 mmol/L (21-32); CREATININE 1.7 mg/dL (0.55-1.02); GLUCOSE,RANDOM 110 mg/dL (74-106); SGPT/ALT 23 U/L (12-78); SODIUM 139 mmol/L (136-145); TOT PROT 6.6 g/dl (6.4-8.2)
[2017-10-25 15:43] LABS: BASO % 0.5 % (0-2.0); EOS % 0.7 % (0-4.5); HEMATOCRIT 44.3 % (32.4-45.2); HEMOGLOBIN 13.2 GM/dL (10.7-15.3); LYMPH % 2.2 % (8-40); MCH 26.5 pg (25.7-33.7); MCHC 29.9 g/dl (32.0-36.0); MEAN CELL VOLUME 88.6 fl (80-96); MEAN PLT VOLUME 10.9 fl (7.5-11.1); NEUT % 95.6 % (42.8-82.8); PLATELET COUNT 653 K/MM3 (134-434); POTASSIUM 5.6 mmol/L (3.5-5.1); RDW 18.5 % (11.6-15.6); SGOT/AST 27 U/L (15-37)
--- NOTE | 2017-10-25 19:05 | PN ---
Teaching Attending Note Name of Resident: Kalli House ATTENDING PHYSICIAN STATEMENT I saw and evaluated the patient. I reviewed the resident's note and discussed the case with the resident. I agree with the resident's findings and plan as documented. SUBJECTIVE: 67yo F with PMH COPD on home o2 3L NC, anxiety, myeloproliferative disorder, thrombophilia, diverticulosis s/p partial colectomy presented to the ER with stabbing WILLIAM x4 days. initially started on L side of head but was very mild. then developed on the R side which is severe 10/10 sharp stabbing pain intermittent every 10-20 minutes. assoc with floating sensation in the eye. no relief with tyelnol. Denies CP, SOB, fever, chills, N/V/C/D, photophobia, halo around lights OBJECTIVE: Last Vital Signs Temp Pulse Resp BP Pulse Ox 98.6 F 118 H 28 H 153/80 93 L 10/25/17 13:15 10/25/17 13:15 10/25/17 13:15 10/25/17 13:15 10/25/17 13:15 General NAD HEENT PERRL, EOMI, no nystagmus. temporal artery is not enlarged, tender or nodular CV S1 S2 RRR no murmur/rub/gallop Lungs CTA B/L no wheezing/rales/rhonchi Abdomen soft NT/ND Neuro CN II- XII grossly intact. no nystagmus. strength equal in all 4 extremities, sensation grossly intact ASSESSMENT AND PLAN: 67yo F with PMH COPD on home o2 3L NC, anxiety, myeloproliferative disorder, thrombophilia, diverticulosis s/p partial colectomy presented to the ER with stabbing WILLIAM x4 days. 1. WILLIAM- medicine observation. concern for thrombosis due to thrombophilia but pt is not having any visual changes. head CT negative. will obtain MRI/MRV to further evaluate. neuro consult 2. hyperkalemia- give kayexylate 3. Thrombophilia- at baseline 4. Myeloproliferative disorder- labs consistent with baseline. no concern for infection at this time 5. COPD on home o2 6. DVT ppx- EAM
[2017-10-25] MEDS ORDERED: ALBUTEROL SO4 18 GM HFA INHALER IH PRN (19:18)
--- NOTE | 2017-10-25 19:28 | HP ---
CHIEF COMPLAINT: headache PCP: Dr Mahoney HISTORY OF PRESENT ILLNESS: The patient is a 67 year old female with a significant PMH of COPD, on 3 L, MPD , thrombocytosis, CKD, anxiety, cardiomegaly, hepatosplenomegaly, h/o of floaters, s/p partial colectomy, that presented to the hospital today complaining of sharp pain that is present on right side of her head. She had mild one present on left side for few days, but for the past 3 days it is located on right side, 10/10, comes every 15-20 minutes, lasts several seconds. It is not associated with vision problems, aura, no numbness, paresthesia, balance problems, lacrimation, no nausea, no vomiting. She denies head trauma. No history of migraine headaches. The patient was seen Neurologist in the past for "flashing lights" in right eye, but was told that everything is normal. She also saw ophtalmologist 3 months ago for visual floaters and also was told that her eye exam is WNL. The patient denies chest pain, palpitations, worsened SOB. She denies abdominal pain, N/V, dysuria, fever, chills. ER course was notable for: (1)WBC 36, K 5.6 (2)PLT 653 (3)Cr 1.7, CT head nl PAST MEDICAL HISTORY: as above and kidney cysts, h/o of diverticulosis PAST SURGICAL HISTORY: partial colectomy 2 years ago, adrenal mass removed 3 years ago, 2 c-sections Social History: Smoking:former smoker, 10 cig/day for 50 years Alcohol:denies Drugs: denies Family History: Father; kidney disease Mother: CHF Allergies Sulfa (Sulfonamide Antibiotics) Allergy (Severe, Verified 10/25/17 13:15) Rash HOME MEDICATIONS: Home Medications Medication Instructions Recorded Albuterol Sulfate [Proair Hfa -] 1 - 2 inh PO PRN PRN 01/28/14 Alprazolam [Xanax] 0.25 mg PO TID PRN 07/21/16 Anagrelide HCl [Agrylin -] 0.5 mg PO TID 11/14/16 Linaclotide [Linzess] 72 mcg PO Q2D 02/06/17 Albuterol 0.083% Nebulizer Chika 1 amp NEB Q4H PRN amp 06/24/17 [Ventolin 0.083% Nebulizer Soln -] Alprazolam [Xanax] 0.25 mg PO Q6H PRN #30 tablet MDD 1 06/24/17 Aspirin [ASA -] 81 mg PO DAILY tab.chew 06/24/17 Hydroxyurea [Hydrea 500Mg Capsule 500 mg PO MoWeFr@1000 capsule 06/24/17 -] Allopurinol [Zyloprim -] 200 mg PO DAILY 10/25/17 Roflumilast [Daliresp -] 500 mcg PO Q2D 10/25/17 Tiotropium [place] [Spiriva] 1 inh IH DAILY 10/25/17 traZODone HCL [Desyrel -] 100 mg PO HS 10/25/17 REVIEW OF SYSTEMS CONSTITUTIONAL: Absent: fever, chills, diaphoresis, generalized weakness, malaise, loss of appetite, weight change HEENT: Absent: rhinorrhea, nasal congestion, throat pain, throat swelling, difficulty swallowing, mouth swelling, ear pain, eye pain, visual changes CARDIOVASCULAR: Absent: chest pain, syncope, palpitations, irregular heart rate, lightheadedness , peripheral edema RESPIRATORY: cough, shortness of breath Absent: dyspnea with exertion, orthopnea, wheezing, stridor, hemoptysis GASTROINTESTINAL:abdominal distension Absent: abdominal pain, nausea, vomiting, diarrhea, constipation, GENITOURINARY: Absent: dysuria, frequency, urgency, hesitancy, hematuria, flank pain, genital pain MUSCULOSKELETAL: Absent: myalgia, arthralgia, joint swelling, back pain, neck pain SKIN: Absent: rash, itching, pallor HEMATOLOGIC/IMMUNOLOGIC: Absent: easy bleeding, easy bruising, lymphadenopathy, frequent infections ENDOCRINE: Absent: unexplained weight gain, unexplained weight loss, heat intolerance, cold intolerance NEUROLOGIC: headache, Absent: focal weakness or paresthesias, dizziness, unsteady gait, seizure PSYCHIATRIC: Absent: anxiety, depression PHYSICAL EXAMINATION Vital Signs - 24 hr 10/25/17 13:15 Temperature 98.6 F Pulse Rate 118 H Respiratory 28 H Rate Blood Pressure 153/80 O2 Sat by Pulse 93 L Oximetry (%) GENERAL: Awake, alert, and fully oriented, in no acute distress. HEAD: Normal with no signs of trauma, no tenderness to palpation, no skin rash. EYES: Pupils equal, round and reactive to light, extraocular movements intact, sclera anicteric, conjunctiva clear. EARS, NOSE, THROAT: Ears normal, nares patent, oropharynx clear without exudates. Moist mucous membranes. NECK: Normal range of motion, supple without lymphadenopathy, JVD, or masses. LUNGS: Breath sounds equal, clear to auscultation bilaterally. No wheezes, and no crackles. No accessory muscle use. HEART: Regular rate and rhythm, normal S1 and S2 without murmur, rub or gallop. ABDOMEN: Soft, nontender, distended, normoactive bowel sounds, no guarding, no rebound, no masses. + hepatomegaly and splenomegaly. MUSCULOSKELETAL: Normal range of motion at all joints. No bony deformities or tenderness. UPPER EXTREMITIES: No peripheral edema. LOWER EXTREMITIES: 2+ pulses, no peripheral edema. NEUROLOGICAL: Cranial nerves II-XII intact. Normal speech, no facial asymmetry, gait not observed. PSYCHIATRIC: Cooperative. Good eye contact. Appropriate mood and affect. SKIN: Warm, dry, normal turgor, no rashes or lesions noted. Laboratory Results - last 24 hr 10/25/17 10/25/17 10/25/17 14:47 14:47 14:47 WBC 36.0 H* D RBC 5.00 Hgb 13.2 Hct 44.3 MCV 88.6 MCH 26.5 MCHC 29.9 L RDW 18.5 H Plt Count 653 H MPV 10.9 D Neutrophils % 95.6 H Lymphocytes % 2.2 L D Monocytes % 1.0 L Eosinophils % 0.7 Basophils % 0.5 Nucleated RBC % 0 PT with INR 12.30 INR 1.09 Sodium 139 Potassium 5.6 H Chloride 103 Carbon Dioxide 30 Anion Gap 6 L BUN 41 H Creatinine 1.7 H Creat Clearance w eGFR 29.98 Random Glucose 110 H Calcium 8.8 Total Bilirubin 0.4 AST 27 ALT 23 Alkaline Phosphatase 98 C-Reactive Protein Total Protein 6.6 Albumin 3.8 10/25/17 16:28 WBC RBC Hgb Hct MCV MCH MCHC RDW Plt Count MPV Neutrophils % Lymphocytes % Monocytes % Eosinophils % Basophils % Nucleated RBC % PT with INR INR Sodium Potassium Chloride Carbon Dioxide Anion Gap BUN Creatinine Creat Clearance w eGFR Random Glucose Calcium Total Bilirubin AST ALT Alkaline Phosphatase C-Reactive Protein 0.[address] head: 1. No acute intracranial hemorrhage, mass effects or hydrocephalus. 2. Moderate microvascular ischemic changes as described above have progressed somewhat since [address] CT. ASSESSMENT/PLAN: The patient is a 67 year old female with a significant PMH of COPD, on 3 L, MPD , thrombocytosis, anxiety, cardiomegaly, hepatosplenomegaly, h/o of floaters, s/ p partial colectomy, that presented to the hospital today complaining of sharp pain that is present on right side of her head. She is admitted for severe headache. Headache; -the patient is complaining of severe, sharp, stabbing pain on right side. It is not associated with aura, visual problems, no neurological deficits. CT of her head excluded acute pathology. -Based on dr Hawkins recommendations, we will obtain MRI/MRA w/o contrast -we will observe the patient overnight -neuro checks -no pain meds needed COPD: -continue Oxygen supplementation -resume Nebulizers, Spiriva, Pro Air -stable Acute on CKD: -Cr 1.7 today, baseline around 1.5, BUN 41 -she is following Dr Degroot -elevated K, -avoid nephrotoxic substances and oral hydration MPD: -contnue Agrilyn -elevated PLT and WBC is chronic for the patient Hyperkalemia: -5.6, will give kayaxelate tonight -no acute ekg changes, compared with previous one -f/u CMP in AM Anxiety: -will continue Trazodone HS and Xanax HS PRN DVT PPX: -heparin sq -scds F/E/N: no/high K/low sodium Disposition: obs med surg Problem List - Problem (1) Essential thrombocytosis Code(s): D47.3 - ESSENTIAL (HEMORRHAGIC) THROMBOCYTHEMIA (2) Headache Code(s): R51 - HEADACHE Qualifiers: Headache type: unspecified Headache chronicity pattern: acute headache Intractability: intractable Qualified Code(s): R51 - Headache (3) Anxiety Code(s): F41.9 - ANXIETY DISORDER, UNSPECIFIED (4) Anxiety and depression Code(s): F41.8 - OTHER SPECIFIED ANXIETY DISORDERS (5) CKD (chronic kidney disease) Code(s): N18.9 - CHRONIC KIDNEY DISEASE, UNSPECIFIED (6) COPD (chronic obstructive pulmonary disease) Code(s): J44.9 - CHRONIC OBSTRUCTIVE PULMONARY DISEASE, UNSPECIFIED Qualifiers: COPD type: emphysema Emphysema type: unspecified Qualified Code(s): J43.9 - Emphysema, unspecified (7) COPD (chronic obstructive pulmonary disease) with acute bronchitis Code(s): J44.0 - CHRONIC OBSTRUCTIVE PULMON DISEASE W ACUTE LOWER RESP INFCT Visit type - Emergency Visit Emergency Visit: Yes ED Registration Date: 10/25/17 Care time: The patient presented to the Emergency Department on the above date and was hospitalized for further evaluation of their emergent condition. - New Patient This patient is new to me today: Yes Date on this admission: 10/25/17 - Critical Care Critical Care patient: No Hospitalist Screening - Colonoscopy Questionnaire Colonoscopy Questionnaire: Colonoscopy Questionnaire - Patient: 50 - 75 years old and never had a screening colonoscopy: No History of colon or rectal polyps, or CA: No History of IBD, Crohn's disease or UC: No History of abdominal radiation therapy as a child: No - Relative: 1 with colon or rectal CA, or polyps at age 60 or younger: No Colon or rectal CA diagnosed at age 45 or younger: No Multiple relatives with colon or rectal CA: No - Outcome: Screening Result: Negative Screen
[2017-10-25 19:47] LABS: PLATELET ESTIMATE INCREASED
[2017-10-25] MEDS ORDERED: SODIUM POLYSTYRENE SULFONATE 15 GM/60 ML BOTTLE PO ONE (20:03)
[2017-10-25] MEDS ORDERED: SODIUM POLYSTYRENE SULFONATE 15 GM/60 ML BOTTLE ONE (21:17)
[2017-10-25] MEDS ORDERED: traZODone HCL 50 MG TABLET (FP) PO SCH (22:00)
[2017-10-25] MEDS ORDERED: ANAGRELIDE HCL 0.5 MG CAPSULE PO SCH ×2 (22:00)
[2017-10-25] MEDS: HEPARIN NA (PORCINE) 5,000 UNITS/ML 1ML VIAL SQ SCH (22:25)
[2017-10-25] MEDS: ALBUTEROL SO4 0.083% IH SOL 2.5 MG/3 ML VIAL.NEB. NEB PRN (23:02)
[2017-10-25] MEDS: ALPRAZolam 0.25 MG TABLET PO PRN (23:56)
[2017-10-26 07:45] LABS: BASO % 0.7 % (0-2.0); EOS % 1.3 % (0-4.5); HEMATOCRIT 40.4 % (32.4-45.2); HEMOGLOBIN 12.4 GM/dL (10.7-15.3); LYMPH % 5.9 % (8-40); MCH 27.1 pg (25.7-33.7); MCHC 30.6 g/dl (32.0-36.0); MEAN CELL VOLUME 88.4 fl (80-96); MEAN PLT VOLUME 8.6 fl (7.5-11.1); NEUT % 90.1 % (42.8-82.8); PLATELET COUNT 466 K/MM3 (134-434); RBC 4.57 M/mm3 (3.60-5.2); RDW 17.8 % (11.6-15.6); WHITE BLOOD COUNT 27.2 K/mm3 (4.0-10.0)
[2017-10-26 07:58] LABS: CHLORIDE 105 mmol/L (98-107); POTASSIUM 4.7 mmol/L (3.5-5.1); SODIUM 141 mmol/L (136-145)
[2017-10-26 08:00] LABS: BLOOD UREA NITROGEN 39 mg/dL (7-18)
[2017-10-26 08:10] LABS: ALBUMIN 3.4 g/dl (3.4-5.0); ALK PHOS 84 U/L (45-117); ANION GAP 4 (8-16); BILIRUBIN,TOTAL 0.4 mg/dL (0.2-1.0); CALCIUM 8.4 mg/dL (8.5-10.1); CO2 32 mmol/L (21-32); CREATININE 1.6 mg/dL (0.55-1.02); GLUCOSE,RANDOM 74 mg/dL (74-106); MAGNESIUM 2.3 mg/dL (1.8-2.4); SGOT/AST 12 U/L (15-37); SGPT/ALT 19 U/L (12-78); TOT PROT 5.7 g/dl (6.4-8.2)
[2017-10-26] MEDS: ALPRAZolam 0.25 MG TABLET PO PRN ×2 (09:00→15:00)
[2017-10-26] MEDS ORDERED: ALBUTEROL SO4 0.083% IH SOL 2.5 MG/3 ML VIAL.NEB. NEB ONE (09:30)
[2017-10-26] MEDS: ALBUTEROL SO4 0.083% IH SOL 2.5 MG/3 ML VIAL.NEB. NEB PRN ×2 (09:47→14:21)
[2017-10-26] MEDS ORDERED: ALPRAZolam 0.25 MG TABLET ONE ×2 (09:53→14:38)
[2017-10-26] MEDS ORDERED: ALLOPURINOL 100 MG TABLET (FP) PO SCH (10:00)
[2017-10-26] MEDS ORDERED: TIOTROPIUM BROMIDE 18 MCG CAPSULES IH SCH (10:00)
[2017-10-26] MEDS ORDERED: ASPIRIN 81 MG CHEWABLE TABLETS PO SCH (10:00)
[2017-10-26] MEDS: HEPARIN NA (PORCINE) 5,000 UNITS/ML 1ML VIAL SQ SCH ×2 (10:32→10:51)
--- NOTE | 2017-10-26 13:28 | EKG ---
Test Reason : Blood Pressure : / mmHG Vent. Rate : 090 BPM Atrial Rate : 090 BPM P-R Int : 116 ms QRS Dur : 064 ms QT Int : 350 ms P-R-T Axes : 071 068 046 degrees QTc Int : 428 ms POOR DATA QUALITY, INTERPRETATION MAY BE ADVERSELY AFFECTED NORMAL SINUS RHYTHM POSSIBLE LEFT ATRIAL ENLARGEMENT ANTEROSEPTAL INFARCT (CITED ON OR BEFORE 23-JUN-2017) ABNORMAL ECG WHEN COMPARED WITH ECG OF 23-JUN-2017 09:04, QUESTIONABLE CHANGE IN QRS AXIS Confirmed by EUSEBIA GARCIA MD ([id number]) on 10/26/2017 1:28:24 PM Referred By: Confirmed By:EUSEBIA GARCIA MD
--- NOTE | 2017-10-26 13:41 | DS ---
Physical Exam: SUBJECTIVE: Patient seen and examined. Said she had one second pricking R sided headache this am. No associated visual changes, no aura. Has had visual disturbances in the past for which she follows an computer network engineer. OBJECTIVE: Vital Signs Period Temp Pulse Resp BP Sys/[place] Pulse Ox Last 24 Hr 98.2 F-98.6 F 73-90 18- 142-158/72-83 96 Vital Signs Temp 98.6 F 10/26/17 05:00 Pulse 73 10/26/17 05:00 Resp 18 10/26/17 05:00 BP 142/72 10/26/17 05:00 Pulse Ox 96 10/26/17 01:49 Intake & Output 10/25/17 10/26/17 10/26/17 23:59 11:59 23:59 Intake Total 1700 Balance 1700 Weight 53.07 kg 53.07 kg Intake: IV 1000 Normal Saline - 1,000 ml 1000 @ 1000 mls/hr IV ASDIR STA Rx#:[id number] Oral 700 Other: Voiding Method Toilet Bowel Movement Yes # Bowel Movements 2 Height 1.63 m 1.63 m Body Mass Index (BMI) 20.0 20.0 Weight Measurement Method Standing Scale PHYSICAL EXAM GENERAL: The patient is awake, alert, and fully oriented, in no acute respiratory distress on NC-3L oxygen. HEAD: Normal with no signs of trauma. EYES: PERRL, extraocular movements intact ENT: Oropharynx clear without exudates, moist mucous membranes. NC oxygen NECK: full range of motion, supple. LUNGS: Breath sounds equal, clear to auscultation bilaterally, no wheezes, no crackles HEART: Regular rate and rhythm, S1, S2 ABDOMEN: Firm, nontender, enlarged, normoactive bowel sounds, no guarding, no rebound, hepatosplenomegaly+, EXTREMITIES: 2+ pulses, warm, well-perfused, no edema. NEUROLOGICAL: Cranial nerves II through XII grossly intact. Normal speech, gait not observed. CBC, BMP 10/26/17 06:20 10/26/17 07:10 LABS Laboratory Results - last 24 hr 10/25/17 10/25/17 10/25/17 14:47 14:47 14:47 WBC 36.0 H* D RBC 5.00 Hgb 13.2 Hct 44.3 MCV 88.6 MCH 26.5 MCHC 29.9 L RDW 18.5 H Plt Count 653 H MPV 10.9 D Neutrophils % 95.6 H Neutrophils % (Manual) 90.0 H Band Neutrophils % 4.0 Lymphocytes % 2.2 L D Lymphocytes % (Manual) 3.0 L D Monocytes % 1.0 L Monocytes % (Manual) 2 L Eosinophils % 0.7 Eosinophils % (Manual) 0.0 D Basophils % 0.5 Basophils % (Manual) 0.0 Nucleated RBC % 0 Platelet Estimate Increased Platelet Comment No clumping noted ESR PT with INR 12.30 INR 1.09 Sodium 139 Potassium 5.6 H Chloride 103 Carbon Dioxide 30 Anion Gap 6 L BUN 41 H Creatinine 1.7 H Creat Clearance w eGFR 29.98 Random Glucose 110 H Calcium 8.8 Phosphorus Magnesium Total Bilirubin 0.4 AST 27 ALT 23 Alkaline Phosphatase 98 C-Reactive Protein Total Protein 6.6 Albumin 3.8 10/25/17 10/25/17 10/26/17 16:28 16:28 06:20 WBC 27.2 H RBC 4.57 Hgb 12.4 Hct 40.4 MCV 88.4 MCH 27.1 MCHC 30.6 L RDW 17.8 H Plt Count 466 H D MPV 8.6 D Neutrophils % 90.1 H Neutrophils % (Manual) Band Neutrophils % Lymphocytes % 5.9 L D Lymphocytes % (Manual) Monocytes % 2.0 L D Monocytes % (Manual) Eosinophils % 1.3 D Eosinophils % (Manual) Basophils % 0.7 Basophils % (Manual) Nucleated RBC % 0 Platelet Estimate Platelet Comment ESR 1 PT with INR INR Sodium Potassium Chloride Carbon Dioxide Anion Gap BUN Creatinine Creat Clearance w eGFR Random Glucose Calcium Phosphorus Magnesium Total Bilirubin AST ALT Alkaline Phosphatase C-Reactive Protein 0.3 Total Protein Albumin 10/26/17 07:10 WBC RBC Hgb Hct MCV MCH MCHC RDW Plt Count MPV Neutrophils % Neutrophils % (Manual) Band Neutrophils % Lymphocytes % Lymphocytes % (Manual) Monocytes % Monocytes % (Manual) Eosinophils % Eosinophils % (Manual) Basophils % Basophils % (Manual) Nucleated RBC % Platelet Estimate Platelet Comment ESR PT with INR INR Sodium 141 Potassium 4.7 Chloride 105 Carbon Dioxide 32 Anion Gap 4 L BUN 39 H Creatinine 1.6 H Creat Clearance w eGFR 32.15 Random Glucose 74 Calcium 8.4 L Phosphorus 5.0 H Magnesium 2.3 Total Bilirubin 0.4 AST 12 L ALT 19 Alkaline Phosphatase 84 C-Reactive Protein Total Protein 5.7 L Albumin 3.4 MRA/MRI brain w/o contrast 10/25/17 : 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 No acute intracranial hemorrhage, mass effects or hydrocephalus. 2. Moderate microvascular ischemic changes as described above have progressed somewhat since 2012 CT. HOSPITAL COURSE: Date of Admission:10/25/17 Date of Discharge: 10/26/17 Prehospital Course: The patient is a 67 year old female with a significant PMH of COPD, on 3 L, MPD , thrombocytosis (essential thrombocythemia), anxiety, cardiomyopathy, CKD, h/ o of eye floaters, s/p partial colectomy, and adrenelectomy that presented to the hospital today complaining of sharp right sided headache. Hospital course: Pt presented witha hemicranial intermittent headache not associated with aura. Head and brain imaging did not reveal any ICH or thrombosis., no acute pathology. D/W Dr Hawkins pt likely has a migraine and should follow up as an outpatient. Pt has COPD, not currently in exacerbation, but is dependent on home oxygen. She was continued on oxygen supplementation, and nebulizers-Spiriva, Pro Air She showed features of Acute on CKD with Cr-1.7 on presentation, with baseline around 1.5. She was continued on oral fluids with Cr trending down to 1.6. She will continue to follow Dr Ye. Pt has myeloproliferative disorder with thrombophilia. She continued her home Agrilyn. Pt came in with hyperkalemia of 5.6,which was managed with kayaxelate and resolved to 4.7. No acute ekg changes were noted on EKG. Pt continued Trazodone HS and Xanax HS PRN for anxiety She will follow up with the neurologist, computer network engineer, network planner and he PCP as an outpatient. Minutes to complete discharge: 40 Discharge Summary Reason For Visit: SOB; CKD; VISUAL SYMPTOM INTERFERE W/VISION Current Active Problems Essential thrombocytosis (Acute) Headache (Acute) Visual symptom interfering with vision (Acute) Condition: Stable - Instructions Diet, Activity, Other Instructions: You came in with recurrent sharp transient Right sided headaches We did tests on you that came back normal We discussed your case with a neurologist, follow up as an outpatient with Dr Hawkins for a likely migraine headache You had previous eye symptoms for which you follow your computer network engineer Follow up with a neurologist within a week Follow up with your computer network engineer Follow up with your hemoncologist Follow up with your network planner Continue with your home medications as prescribed If you think your symptoms are not getting better, go to the nearest emergency room Referrals: Piero Ortiz MD [Primary Care Provider] - 1 Week Bravo Ye MD [Staff Physician] - 2 Weeks Rich Medrano MD [Staff Physician] - 2 Weeks Misael Hawkins MD [Staff Physician] - 1 Week Disposition: HOME - Home Medications Comprehensive Discharge Medication List: Ambulatory Orders Albuterol Sulfate [Proair Hfa -] 1 - 2 inh PO PRN PRN 01/28/14 Alprazolam [Xanax] 0.25 mg PO TID PRN 07/21/16 Anagrelide HCl [Agrylin -] 1 mg PO TID 11/14/16 Linaclotide [Linzess] 72 mcg PO Q2D 02/06/17 Albuterol 0.083% Nebulizer Chika [Ventolin 0.083% Nebulizer Soln -] 1 amp NEB Q4H PRN amp 06/24/17 Aspirin [ASA -] 81 mg PO DAILY tab.chew 06/24/17 Hydroxyurea [Hydrea 500Mg Capsule -] 500 mg PO MoWeFr@1000 capsule 06/24/17 Allopurinol [Zyloprim -] 200 mg PO DAILY 10/25/17 Roflumilast [Daliresp -] 500 mcg PO Q2D 10/25/17 Tiotropium [place] [Spiriva] 1 inh IH DAILY 10/25/17 traZODone HCL [Desyrel -] 100 mg PO HS 10/25/17 This patient is new to me today: Yes Date on this admission: 10/26/17 Emergency Visit: Yes ED Registration Date: 10/25/17 Care time: The patient presented to the Emergency Department on the above date and was hospitalized for further evaluation of their emergent condition. Critical Care patient: No - Discharge Referral Referred to [facility] Yes Physician Referral: Bravo Ye DO (Neph)
[2017-10-26] MEDS ORDERED: ANAGRELIDE HCL 1 MG PO SCH (14:15)
[2017-10-26 15:26] VITALS: TEMP 98.4
[2017-10-26 15:28] VITALS: BP 159/89; PULSE 90
--- NOTE | 2017-10-26 15:43 | PN ---
Teaching Attending Note Name of Resident: Margo Lewis ATTENDING PHYSICIAN STATEMENT I saw and evaluated the patient. I reviewed the resident's note and discussed the case with the resident. I agree with the resident's findings and plan as documented. SUBJECTIVE:continues to have intermittent tapping sensation on the R temporal region,. it is not painful but more annoying. no visual changes. OBJECTIVE: Last Vital Signs Temp Pulse Resp BP Pulse Ox 98.4 F 90 18 159/89 99 10/26/17 13:00 10/26/17 13:00 10/26/17 13:00 10/26/17 13:00 10/26/17 09:00 General NAD ASSESSMENT AND PLAN: 67yo F with PMH COPD on home o2 3L NC, anxiety, myeloproliferative disorder, thrombophilia, diverticulosis s/p partial colectomy presented to the ER with stabbing WILLIAM x4 days. 1. WILLIAM-continues to be intermittent but not requiring medications. workup is negative. spoke with neurology who is unable to evaluate today. states she can be d/c and follow up in the office. 2. hyperkalemia- give kayexylate 3. Thrombophilia- at baseline 4. Myeloproliferative disorder- labs consistent with baseline. no concern for infection at this time 5. COPD on home o2 6. DVT ppx- EAM 7. d/c home
[2017-10-27] MEDS ORDERED: PATIENT'S OWN MEDICATION (NON-FORMULARY) (Linaclotide [Linzess] 72 MCG) PO SCH (10:00)
[2017-10-27] MEDS ORDERED: HYDROXYUREA 500 MG CAPSULE PO SCH (10:00)
[2017-10-27] MEDS ORDERED: ROFLUMILAST 500 MCG TABLET PO SCH (10:00)
== END 2017-10-26 15:00 | disposition home or self-care (01) ==
LOC: JER 13:11 → JERBED 18:23
PROVIDERS: ADMIT Internal Medicine; ATTEND Internal Medicine
PROC: 3E033NZ Introduction of Analgesics, Hypnotics, Sedatives into Peripheral Vein, Percutaneous Approach (ICD-10-PCS; principal; 2017-10-25)
PROC: 3E033GC Introduction of Other Therapeutic Substance into Peripheral Vein, Percutaneous Approach (ICD-10-PCS; 2017-10-25)
PROC: 3E0F7GC Introduction of Other Therapeutic Substance into Respiratory Tract, Via Natural or Artificial Opening (ICD-10-PCS; 2017-10-25)
DX: D47.3 Essential (hemorrhagic) thrombocythemia (principal); H53.8 Other visual disturbances; R51 Headache; F41.9 Anxiety disorder, unspecified; K64.8 Other hemorrhoids; R16.1 Splenomegaly, not elsewhere classified; I51.7 Cardiomegaly; R16.0 Hepatomegaly, not elsewhere classified; K58.9 Irritable bowel syndrome, unspecified; E87.5 Hyperkalemia; D68.59 Other primary thrombophilia; C94.6 Myelodysplastic disease, not elsewhere classified; D41.8 Neoplasm of uncertain behavior of other specified urinary organs; J44.0 Chronic obstructive pulmonary disease with (acute) lower respiratory infection; N18.9 Chronic kidney disease, unspecified; K50.90 Crohn's disease, unspecified, without complications; D72.829 Elevated white blood cell count, unspecified; Z88.2 Allergy status to sulfonamides; Z79.82 Long term (current) use of aspirin; Z87.891 Personal history of nicotine dependence; Z99.81 Dependence on supplemental oxygen; Z13.6 Encounter for screening for cardiovascular disorders
CPT/HCPCS: 36415; 70450-TC; 70544-TC; 70551-TC; 80053; 83735; 84100; 85025; 85610; 85651; 86140; 93005; 93010; 94640; 96374; 96375; 99284-25; G0378; J0131; J1644

== ENCOUNTER 2017-10-31 11:25 | Emergency (ER) | payer OTHER, MEDICARE ==
[2017-10-31 11:58] VITALS: TEMP 98.5; BMI 20.2
--- NOTE | 2017-10-31 13:11 | PDOC ---
History of Present Illness - General Chief Complaint: Pain, Acute Stated Complaint: SOB Time Seen by Provider: 10/31/17 12:17 - History of Present Illness Initial Comments: 10/31/17 13:12 67 yo F with h/o COPD ( 3 L NC, chronic steroid use 05/2017), adrenal adeoma s/ p adrenal gland removal, MPD, thrombocytosis, CKD, anxiety, cardiomegaly, HSG, IBD, s/p partial colectomy, who p/w L sided back pain. Patient reports acute onset left sided lower back pain beginning yesterday evening when attempting to sit in car. Denies back trauma, ext. sensory change, weakness, urinary retention , urinary retention, urinary or stool incontinence, perianal parasthesia. Pain worse with ambulating and touch. Not improved with erect posture, leaning forward. Able to ambulate without assistive device,but endorses painful ambulation. Denies F/C, N/V, neck pain, neck stiffness, morning stiffness, CP, SOB, abdominal pain, diarrhea, constipation, urinary complaints, hematuria, weakness , lightheadedness, sensory changes. PMHx: as noted above ROS: as noted above SHx: tobacco cessation 10 cigarettes per day/50 years. . Denies Etoh, IVDA. Allergies: Sulfa (Sulfonamide Antibiotics)- Rash. PMD: Dr. Ortiz Past History - Past Medical History Allergies/Adverse Reactions: Allergies Allergy/AdvReac Type Severity Reaction Status Date / Time Sulfa (Sulfonamide Allergy Severe Rash Verified 10/31/17 14:20 Antibiotics) Home Medications: Ambulatory Orders Albuterol Sulfate [Proair Hfa -] 1 - 2 inh PO PRN PRN 01/28/14 Alprazolam [Xanax] 0.5 mg PO BID 07/21/16 Anagrelide HCl [Agrylin -] 0.5 mg PO TID 11/14/16 Linaclotide [Linzess] 72 mcg PO Q2D 02/06/17 Albuterol 0.083% Nebulizer Chika [Ventolin 0.083% Nebulizer Soln -] 1 amp NEB Q4H PRN amp 06/24/17 Aspirin [ASA -] 81 mg PO DAILY tab.chew 06/24/17 Hydroxyurea [Hydrea 500Mg Capsule -] 500 mg PO MoWeFr@1000 capsule 06/24/17 Allopurinol [Zyloprim -] 200 mg PO DAILY 10/25/17 Roflumilast [Daliresp -] 500 mcg PO Q2D 10/25/17 Tiotropium [place] [Spiriva] 1 inh IH DAILY 10/25/17 traZODone HCL [Desyrel -] 100 mg PO HS 10/25/17 Oxycodone HCl/Acetaminophen [Percocet 5-325 mg Tablet] 1 - 2 tab PO Q6H PRN #20 tab MDD 8 tabs 10/31/17 Anemia: No Asthma: No Cancer: Yes (BENIGN ADRENAL MASS) Cardiac Disorders: No CVA: No COPD: Yes CHF: No Dementia: No Diabetes: No GI Disorders: Yes (ibs,diverticulosis;ULCERATIVE/COLITIS/CROHN'S DISEASE) Disorders: Yes (kidney cysts) HTN: No Hypercholesterolemia: No Kidney Stones: Yes Liver Disease: No Psychiatric Problems: Yes (ANXIETY) Seizures: No Thyroid Disease: No - Surgical History Abdominal Surgery: Yes (PARTIAL RESECTION OF COLON) Appendectomy: No Cardiac Surgery: No Cholecystectomy: No Lung Surgery: No Neurologic Surgery: No Orthopedic Surgery: No - Immunization History Immunization Up to Date: Yes - Suicide/Smoking/Psychosocial Hx Smoking Status: Yes Smoking History: Former smoker Have you smoked in the past 12 months: No Number of Cigarettes Smoked Daily: 5 If you are a former smoker, when did you quit?: 2010 Information on smoking cessation initiated: No 'Breaking Loose' booklet given: 02/20/13 Hx Alcohol Use: No Drug/Substance Use Hx: No Substance Use Type: None Hx Substance Use Treatment: No Review of Systems - Review of Systems Comments:: 10/31/17 13:21 GENERAL/CONSTITUTIONAL: No fever or chills. No weakness. HEAD, EYES, EARS, NOSE AND THROAT: No change in vision. No ear pain or discharge. No sore throat. CARDIOVASCULAR: No chest pain or shortness of breath RESPIRATORY: No cough, wheezing, or hemoptysis. GASTROINTESTINAL: No nausea, vomiting, diarrhea or constipation. GENITOURINARY: No dysuria, frequency, or change in urination. MUSCULOSKELETAL: No joint or muscle swelling or pain. No neck or back pain. SKIN: No rash NEUROLOGIC: No headache, vertigo, loss of consciousness, or change in strength/ sensation. ENDOCRINE: No increased thirst. No abnormal weight change HEMATOLOGIC/LYMPHATIC: No anemia, easy bleeding, or history of blood clots. ALLERGIC/IMMUNOLOGIC: No hives or skin allergy. *Physical Exam - Vital Signs Last Vital Signs Temp Pulse Resp BP Pulse Ox 98.5 F 125 H 30 H 124/88 91 L 10/31/17 11:54 10/31/17 11:54 10/31/17 11:54 10/31/17 11:54 10/31/17 11:54 - Physical Exam Comments: 10/31/17 13:22 GENERAL: Awake, alert, and fully oriented, in no acute distress HEAD: No signs of trauma, normocephalic, atraumatic EYES: PERRLA, EOMI, sclera anicteric, conjunctiva clear ENT: Hearing grossly normal, nares patent, oropharynx clear without exudates. Moist mucosa NECK: Normal ROM, supple, no lymphadenopathy, JVD, or masses LUNGS: No distress, speaks full sentences, clear to auscultation bilaterally HEART: Regular rate and rhythm, normal S1 and S2, no murmurs, rubs or gallops, peripheral pulses normal and equal bilaterally. ABDOMEN: Soft, nontender, normoactive bowel sounds. No guarding, no rebound. No masses EXTREMITIES : Normal inspection, Normal range of motion, no edema. No clubbing or cyanosis. NEUROLOGICAL: Cranial nerves II through XII grossly intact. Normal speech, gait not assessed ( limited 2/2 pain) , no focal sensorimotor deficits Back: + [place]o hump fat deposition/kyphotic appearing. Neg stepoff, bony deformity, skin changes. + L sided posterior superior iliac spine ttp. L hip with normal ROM. Absent greater trochanter ttp. SKIN: Warm, Dry, normal turgor, no rashes or lesions noted Medical Decision Making - Medical Decision Making 10/31/17 13:21 67 yo F with h/o COPD ( 3 L NC, chronic steroid use 05/2017), MPD, thrombocytosis, CKD, anxiety, cardiomegaly, HSG, IBD, s/p partial colectomy, who p/w L sided back pain. HR 125, R 30, 02 91 % 0n 3 L NC. AF, A&Ox3. + Left sided PSIS ttp. Low suspicion of severe pathology related to back pain. Absent red flag symptoms concerning for cauda equina, disc herniation, spinal stenosis , epidural abscess, AAA, Ao dissection, pyelonephritis. Pain control and reassess. Probable lumbrosacral strain. Patient with chronic steroid use, will consider steroid induced osteopenia and possible fracture. ED Course: Baclofen, Naproxen, Tramadol, Xanax 10/31/17 13:29 Lumbar-Sacral RAD Pelvis RAD Patient pain improved following medication. 10/31/17 16:19 Lumbar RAD: Mild degenerative arthritis. Pelvis: No acute pathology. Patient can ambulate w/out difficulty. Stable for d/c with return precautions. 10/31/17 17:03 Percocet sent to pharmacy *DC/Admit/Observation/Transfer Diagnosis at time of Disposition: Back pain without radiculopathy - Discharge Dispostion Condition at time of disposition: Stable Decision to Admit order: No - Prescriptions Prescriptions: Oxycodone HCl/Acetaminophen [Percocet 5-325 mg Tablet] 1 - 2 tab PO Q6H PRN #20 tab MDD 8 tabs PRN Reason: Pain - Referrals Referrals: Piero Ortiz MD [Primary Care Provider] - - Patient Instructions Printed Discharge Instructions: DI for Low Back Pain Additional Instructions: Please return to the emergency department with any new or worsening symptoms or concerns. Please follow up with your primary care physician within 72 hours. - Post Discharge Activity - Attestations Physician Attestion: 10/31/17 15:26 I attest to the information provided in this note.
[2017-10-31] MEDS ORDERED: BACLOFEN 10 MG TABLET (FP) PO ONE (13:27)
[2017-10-31] MEDS ORDERED: NAPROXEN 500 MG TABLET (FP) PO ONE (13:27)
[2017-10-31] MEDS ORDERED: NAPROXEN 500 MG TABLET (FP) ONE (13:34)
[2017-10-31] MEDS ORDERED: BACLOFEN 10 MG TABLET (FP) ONE (13:34)
[2017-10-31] MEDS ORDERED: traMADol HCL 50 MG TABLET PO ONE (14:03)
[2017-10-31] MEDS ORDERED: ALPRAZolam 0.25 MG TABLET PO ONE (14:04)
[2017-10-31] MEDS ORDERED: ALPRAZolam 0.25 MG TABLET ONE (14:07)
[2017-10-31] MEDS ORDERED: traMADol HCL 50 MG TABLET ONE (14:07)
--- NOTE | 2017-10-31 14:17 | PDOC ---
Attending Attestation - Resident Resident Name: Jacky Tesfaye - ED Attending Attestation I have performed the following: I have examined & evaluated the patient, The case was reviewed & discussed with the resident, I agree w/resident's findings & plan - HPI HPI: 10/31/17 14:14 67-year-old female with history of COPD on chronic steroids presents with atraumatic left low back/sacroiliac pain that began yesterday, not associated with any radicular symptoms or focal neurological deficits or bowel/bladder issues. No slip or fall, no heavy lifting, no fevers or chills. Took Tylenol with some relief initially, presents for evaluation. - Physicial Exam PE: 10/31/17 14:15 Baseline hypoxia on oxygen, slight tachycardia, afebrile Generally well-appearing, thin woman seated in wheelchair, appears older than stated age Kyphotic, but no midline spine tenderness to palpation or deformity or step- off. There is focal reproducible tenderness just left of the lower lumbar spine and along the SI joints, there is some presacral edema from her chronic steroid use, there is no warmth or erythema or induration All other joints are unremarkable with full range of motion with full strength, neurovascularly intact distally - Medical Decision Making 10/31/17 14:16 67-year-old female with history of COPD on long-standing steroids with likely underlying osteoporosis presents with atraumatic left low back/sacroiliac pain. Likely strain, rule out fracture. Neurologically intact, no evidence of infection. Lumbosacral spine and pelvis x-ray Pain medications Reassess
[2017-10-31 16:24] VITALS: BP 154/89; PULSE 91
== END 2017-10-31 17:30 | disposition home or self-care (01) ==
LOC: JER 11:25
DX: M54.5 Low back pain (principal); J44.9 Chronic obstructive pulmonary disease, unspecified; F41.9 Anxiety disorder, unspecified; D47.3 Essential (hemorrhagic) thrombocythemia; N18.9 Chronic kidney disease, unspecified
CPT/HCPCS: 72100-TC-FY; 72170-TC-FY; 99283-25; J0475

== ENCOUNTER 2017-11-06 09:51 | Inpatient (IN) | payer OTHER, MEDICARE ==
--- NOTE | 2017-11-06 10:44 | PDOC ---
History of Present Illness - General History Source: Patient Exam Limitations: No Limitations <Brit Walton - Last Filed: 11/06/17 12:47> - History of Present Illness Initial Comments: 11/06/17 12:37 The patient is a 67-year-old female, with past medical history of COPD on long- standing steroids, thrombocytosis, and anxiety, who presents to the ED via with 1 week of chronic left lower back pain The patient was seen in the ED on 11/01/27 for the same and was given percocet with no relief of her symptoms. Denies preceding trauma. The patient decided to come in today because her pain is getting worse and is not well controlled with percocet. On exam, the patient reports shortness of breath which she has at baseline due to her COPD. Denies CP. The patient denies any fever, chills, nausea, vomiting, diarrhea, or abdominal pain. Denies new LE weakness, numbness. Denies urine or stool incontinence or retention. Allergies: Sulfa PCP: Dr. Ortiz <Sharyn Moran - Last Filed: 11/06/17 16:01> - General Chief Complaint: Chronic pain Stated Complaint: Shortness of Breath Time Seen by Provider: 11/06/17 10:44 Past History <Brit Walton - Last Filed: 11/06/17 12:47> - Past Medical History Anemia: No Asthma: No Cancer: Yes (BENIGN ADRENAL MASS) Cardiac Disorders: No CVA: No COPD: Yes CHF: No Dementia: No Diabetes: No GI Disorders: Yes (ibs,diverticulosis;ULCERATIVE/COLITIS/CROHN'S DISEASE) Disorders: Yes (kidney cysts) HTN: No Hypercholesterolemia: No Kidney Stones: Yes Liver Disease: No Psychiatric Problems: Yes (ANXIETY) Seizures: No Thyroid Disease: No - Surgical History Abdominal Surgery: Yes (PARTIAL RESECTION OF COLON) Appendectomy: No Cardiac Surgery: No Cholecystectomy: No Lung Surgery: No Neurologic Surgery: No Orthopedic Surgery: No - Immunization History Immunization Up to Date: Yes - Suicide/Smoking/Psychosocial Hx Smoking Status: Yes Smoking History: Former smoker Have you smoked in the past 12 months: No Number of Cigarettes Smoked Daily: 0 If you are a former smoker, when did you quit?: 2010 Information on smoking cessation initiated: No 'Breaking Loose' booklet given: 09/25/13 Hx Alcohol Use: No Drug/Substance Use Hx: No Substance Use Type: None Hx Substance Use Treatment: No <Nassef,Yomna - Last Filed: 11/06/17 16:01> - Past Medical History Allergies/Adverse Reactions: Allergies Allergy/AdvReac Type Severity Reaction Status Date / Time Sulfa (Sulfonamide Allergy Severe Rash Verified 11/06/17 10:08 Antibiotics) Home Medications: Ambulatory Orders Albuterol Sulfate [Proair Hfa -] 1 - 2 inh PO PRN PRN 01/28/14 Alprazolam [Xanax] 0.5 mg PO BID 07/21/16 Anagrelide HCl [Agrylin -] 0.5 mg PO TID 11/14/16 Linaclotide [Linzess] 72 mcg PO Q2D 02/06/17 Albuterol 0.083% Nebulizer Chika [Ventolin 0.083% Nebulizer Soln -] 1 amp NEB Q4H PRN amp 06/24/17 Aspirin [ASA -] 81 mg PO DAILY tab.chew 06/24/17 Hydroxyurea [Hydrea 500Mg Capsule -] 500 mg PO MoWeFr@1000 capsule 06/24/17 Allopurinol [Zyloprim -] 200 mg PO DAILY 10/25/17 Roflumilast [Daliresp -] 500 mcg PO Q2D 10/25/17 Tiotropium [place] [Spiriva] 1 inh IH DAILY 10/25/17 traZODone HCL [Desyrel -] 100 mg PO HS 10/25/17 Oxycodone HCl/Acetaminophen [Percocet 5-325 mg Tablet] 1 - 2 tab PO Q6H PRN #20 tab MDD 8 tabs 10/31/17 Review of Systems - Review of Systems Comments:: 11/06/17 12:40 GENERAL/CONSTITUTIONAL: No fever or chills. No weakness. HEAD, EYES, EARS, NOSE AND THROAT: No change in vision. No ear pain or discharge. No sore throat. GASTROINTESTINAL: No nausea, vomiting, diarrhea or constipation. GENITOURINARY: No dysuria, frequency, or change in urination. CARDIOVASCULAR: No chest pain or shortness of breath. RESPIRATORY: No cough, wheezing, or hemoptysis. MUSCULOSKELETAL: No joint or muscle swelling or pain. No neck pain, +back pain SKIN: No rash NEUROLOGIC: No headache, vertigo, loss of consciousness, or change in strength/ sensation. ENDOCRINE: No increased thirst. No abnormal weight change. HEMATOLOGIC/LYMPHATIC: No anemia, easy bleeding, or history of blood clots. ALLERGIC/IMMUNOLOGIC: No hives or skin allergy. <Sharyn Moran - Last Filed: 11/06/17 16:01> *Physical Exam - Vital Signs Last Vital Signs Temp Pulse Resp BP Pulse Ox 98.7 F 90 16 186/89 99 11/06/17 09:58 11/06/17 09:58 11/06/17 09:58 11/06/17 09:58 11/06/17 09:58 <Brit Walton - Last Filed: 11/06/17 12:47> - Vital Signs Last Vital Signs Temp Pulse Resp BP Pulse Ox 98.7 F 90 16 186/89 99 11/06/17 09:58 11/06/17 09:58 11/06/17 09:58 11/06/17 09:58 11/06/17 09:58 - Physical Exam Comments: 11/06/17 12:40 GENERAL: Awake, alert, and fully oriented, in no acute distress HEAD: No signs of trauma EYES: PERRLA, EOMI, sclera anicteric, conjunctiva clear ENT: Auricles normal inspection, hearing grossly normal, NC in place, oropharynx clear without exudates. Moist mucosa NECK: Normal ROM, supple, no lymphadenopathy, JVD, or masses LUNGS: Breath sounds equal, clear to auscultation bilaterally. No wheezes, and no crackles HEART: Regular rate and rhythm, normal S1 and S2, no murmurs, rubs or gallops ABDOMEN: Soft, nontender, normoactive bowel sounds. No guarding, no rebound. No masses EXTREMITIES: No edema. No clubbing or cyanosis. No cords, erythema. BACK: (+)Left sacroiliac bony tenderness to palpation. No midline cervical, thoracic, lumbar ttp NEUROLOGICAL: Normal speech, cranial nerves intact, negative pronator drift, 5/ 5 strength in all 4 extremities, normal sensation to light touch in all 4 extremities, normal cerebellar exam, normal gait, normal reflexes and tone SKIN: Warm, Dry, normal turgor, no rashes or lesions noted. <Sharyn Moran - Last Filed: 11/06/17 16:01> ED Treatment Course - LABORATORY CBC & Chemistry Diagram: 11/06/17 11:49 11/06/17 11:49 <AntonBrit - Last Filed: 11/06/17 12:47> - LABORATORY CBC & Chemistry Diagram: 11/06/17 11:49 11/06/17 11:49 <Sharyn Moran - Last Filed: 11/06/17 16:01> Medical Decision Making - Medical Decision Making 11/06/17 11:33 Dr. Ortiz was paged overhead. 11/06/17 12:02 Dr. Ortiz was paged and notified via phone service. Second page was placed at 12:47. <AntonBrit - Last Filed: 11/06/17 12:47> - Medical Decision Making 11/06/17 12:42 67yo F hx COPD on chronic steroids, presents to ED for the second time with L sacroiliac pain that is not controlled with percocet. Vitals wnl. Exam with bony SI ttp. No deformities. Unclear etiology of pain, will check basic labs, CT , control pain, and discuss with Dr. Ortiz. 11/06/17 15:57 CT with acute L1 vertebral body fracture Pt required multiple doses of morphine, also given lidocaine patch, pain still poorly controlled Case discussed with her PMD Dr. Ortiz, plan is to admit pt to hospitalist for pain control Pt admitted to Dr. Hill Case discussed in detail with admitting physician including history, physical exam and ancillary studies. Admitting physician has assumed care for the patient, will follow all pending diagnostics and will complete the evaluation and treatment. <Sharyn Moran - Last Filed: 11/06/17 16:01> *DC/Admit/Observation/Transfer <Brit Walton - Last Filed: 11/06/17 12:47> - Discharge Dispostion Decision to Admit order: Yes - Attestations Physician Attestion: 11/06/17 16:01 I, Dr. Sharyn Moran MD, attest that this document has been prepared under my direction and personally reviewed by me in its entirety. I further attest, that it accurately reflects all work, treatment, procedures and medical decision -making performed by me. <Sharyn Moran - Last Filed: 11/06/17 16:01> Diagnosis at time of Disposition: Closed fracture of lumbar vertebral body - Discharge Dispostion Condition at time of disposition: Stable - Referrals Referrals: Piero Ortiz MD [Primary Care Provider] - - Patient Instructions - Post Discharge Activity
[2017-11-06] MEDS ORDERED: KETOROLAC TROMETHAMINE 15 MG/ML VIAL IVPUSH ONE (11:36)
[2017-11-06] MEDS ORDERED: KETOROLAC TROMETHAMINE 15 MG/ML VIAL ONE (11:43)
[2017-11-06 12:42] LABS: BASO % 0.7 % (0-2.0); EOS % 1.1 % (0-4.5); HEMATOCRIT 43.9 % (32.4-45.2); HEMOGLOBIN 13.8 GM/dL (10.7-15.3); LYMPH % 4.2 % (8-40); MCH 27.2 pg (25.7-33.7); MCHC 31.5 g/dl (32.0-36.0); MEAN CELL VOLUME 86.4 fl (80-96); MEAN PLT VOLUME 8.3 fl (7.5-11.1); MONO % 1.9 % (3.8-10.2); NEUT % 92.1 % (42.8-82.8); PLATELET COUNT 486 K/MM3 (134-434); RBC 5.08 M/mm3 (3.60-5.2); RDW 17.8 % (11.6-15.6); WHITE BLOOD COUNT 28.9 K/mm3 (4.0-10.0)
[2017-11-06] MEDS ORDERED: ALPRAZolam 0.25 MG TABLET PO ONE (12:45)
[2017-11-06] MEDS ORDERED: morphine CARPU-JECT 4 MG/1 ML DISP.SYRIN IVPUSH ONE ×2 (12:45→14:05)
[2017-11-06 12:46] LABS: ALBUMIN 3.9 g/dl (3.4-5.0); ANION GAP 3 (8-16); BILIRUBIN,TOTAL 0.5 mg/dL (0.2-1.0); BLOOD UREA NITROGEN 41 mg/dL (7-18); CALCIUM 8.9 mg/dL (8.5-10.1); CHLORIDE 101 mmol/L (98-107); CO2 35 mmol/L (21-32); CREATININE 1.5 mg/dL (0.55-1.02); GLUCOSE,RANDOM 74 mg/dL (74-106); POTASSIUM 5.3 mmol/L (3.5-5.1); SGOT/AST 18 U/L (15-37); SODIUM 139 mmol/L (136-145); TOT PROT 6.8 g/dl (6.4-8.2)
[2017-11-06 12:57] LABS: ALK PHOS 98 U/L (45-117); SGPT/ALT 24 U/L (12-78)
[2017-11-06] MEDS ORDERED: ALPRAZolam 0.25 MG TABLET ONE (13:09)
[2017-11-06] MEDS ORDERED: morphine CARPU-JECT 2 MG/1 ML DISP.SYRIN ONE (13:09)
[2017-11-06] MEDS ORDERED: LIDOCAINE 5% TOPICAL PATCH TP ONE (14:05)
[2017-11-06] MEDS ORDERED: LIDOCAINE 5% TOPICAL PATCH ONE (14:46)
[2017-11-06] MEDS ORDERED: morphine SULFATE 4 MG/ML VIAL ONE (14:46)
[2017-11-06] MEDS ORDERED: ALBUTEROL SO4 0.083% IH SOL 2.5 MG/3 ML VIAL.NEB. NEB ONE ×2 (18:02→18:08)
[2017-11-06 18:41] LABS: PLATELET ESTIMATE INCREASED
--- NOTE | 2017-11-06 20:10 | HP ---
Admitting History and Physical - Primary Care Physician PCP: Sunita Hill - Admission History of Present Illness: [id number] female, with past medical history of COPD on long-standing steroids , thrombocytosis, and anxiety, who presents to the ED via with 1 week of chronic left lower back pain The patient was seen in the ED on 11/01/27 for the same and was given percocet with no relief of her symptoms. Denies preceding trauma. The patient decided to come in today because her pain is getting worse and is not well controlled with percocet. On exam, the patient reports shortness of breath which she has at baseline due to her COPD. Denies CP. . Allergies: Sulfa PCP: Dr. Ortiz - Past Medical History Cardiovascular: Yes: HTN Pulmonary: Yes: COPD Gastrointestinal: Yes: Constipation, Other (ADRENAL ADENOMA, SEVERE DIVERTICULOSIS AND DIVERTICULITIS) Hepatobiliary: Yes: Other (HAD WORKUP FOR PORTAL HTN WHICH WAS NEGATIVE ( INCLUDED PORTAL PRESSURE MEASUREMENTS)) Renal/: Yes: Renal Inusuff Heme/Onc: Yes: Thrombocytopenia. No: Anemia, B12 Deficiency, Bleeding Disorder , Cancer, Current Chemotherapy, Current Radiation Therapy, Hemochromatosis, Hypercoaguable State, Myeloproliferative Synd, Sickle Cell Disease, Sickle Cell Trait, Other Psych: Yes: Anxiety - Past Surgical History Past Surgical History: Yes: Colonoscopy, Upper Endoscopy - Smoking History Smoking history: Former smoker Have you smoked in the past 12 months: No Aproximately how many cigarettes per day: 0 If you are a former smoker, when did you quit?: 2010 - Alcohol/Substance Use Hx Alcohol Use: No History of Substance Use: reports: None - Social History ADL: Independent History of Recent Travel: No Home Medications - Allergies Allergies/Adverse Reactions: Allergies Allergy/AdvReac Type Severity Reaction Status Date / Time Sulfa (Sulfonamide Allergy Severe Rash Verified 11/06/17 10:08 Antibiotics) - Home Medications Home Medications: Ambulatory Orders Albuterol Sulfate [Proair Hfa -] 1 - 2 inh PO PRN PRN 01/28/14 Alprazolam [Xanax] 0.5 mg PO PRN PRN 07/21/16 Anagrelide HCl [Agrylin -] 0.5 mg PO TID 11/14/16 Linaclotide [Linzess] 72 mcg PO Q2D 02/06/17 Albuterol 0.083% Nebulizer Chika [Ventolin 0.083% Nebulizer Soln -] 1 amp NEB Q4H PRN amp 06/24/17 Aspirin [ASA -] 81 mg PO DAILY tab.chew 06/24/17 Hydroxyurea [Hydrea 500Mg Capsule -] 500 mg PO MoWeFr@1000 capsule 06/24/17 Allopurinol [Zyloprim -] 200 mg PO DAILY 10/25/17 Roflumilast [Daliresp -] 500 mcg PO Q2D 10/25/17 Tiotropium [place] [Spiriva] 1 inh IH DAILY 10/25/17 traZODone HCL [Desyrel -] 100 mg PO HS 10/25/17 Oxycodone HCl/Acetaminophen [Percocet 5-325 mg Tablet] 1 - 2 tab PO Q6H PRN #20 tab MDD 8 tabs 10/31/17 Physical Examination Vital Signs: Vital Signs Temperature 99.8 F H 11/06/17 18:20 Pulse Rate 106 H 11/06/17 18:20 Respiratory Rate 18 11/06/17 18:20 Blood Pressure 189/108 11/06/17 18:20 O2 Sat by Pulse Oximetry (%) 94 L 11/06/17 18:58 Constitutional: Yes: No Distress HENT: Yes: Atraumatic Neck: Yes: Supple Cardiovascular: Yes: Regular Rate and Rhythm Respiratory: Yes: CTA Bilaterally Gastrointestinal: Yes: Normal Bowel Sounds Extremities: Yes: WNL Neurological: Yes: Alert, Oriented Labs: CBC, BMP 11/06/17 11:49 11/06/17 11:49 Problem List - Problems (1) COPD (chronic obstructive pulmonary disease) Code(s): J44.9 - CHRONIC OBSTRUCTIVE PULMONARY DISEASE, UNSPECIFIED (2) Musculoskeletal pain Code(s): M79.1 - MYALGIA Assessment/Plan Laboratory Tests 11/06/17 11/06/17 11:49 11:49 WBC 28.9 H RBC 5.08 Hgb 13.8 D Hct 43.9 MCV 86.4 MCH 27.2 MCHC 31.5 L RDW 17.8 H Plt Count 486 H MPV 8.3 Absolute Neuts (auto) 26.6 Total Counted 100 Neutrophils % 92.1 H Neutrophils % (Manual) 91.0 H Band Neutrophils % 1.0 Lymphocytes % 4.2 L D Lymphocytes % (Manual) 6.0 L D Monocytes % 1.9 L Monocytes % (Manual) 2 L Eosinophils % 1.1 Basophils % 0.7 Nucleated RBC % 0 Platelet Estimate Increased Platelet Comment No clumping noted Sodium 139 Potassium 5.3 H Chloride 101 Carbon Dioxide 35 H Anion Gap 3 L BUN 41 H Creatinine 1.5 H Creat Clearance w eGFR 34.64 Random Glucose 74 Calcium 8.9 Total Bilirubin 0.5 D AST 18 ALT 24 Alkaline Phosphatase 98 Total Protein 6.8 Albumin 3.9 Active Medications Generic Name Dose Route Start Last Admin Trade Name Freq PRN Reason Stop Dose Admin Miscellaneous 1 each 11/06/17 22:00 Lidoderm Patch Removal MC DAILY@2200 RANDI
[2017-11-06] MEDS ORDERED: ALPRAZolam 0.25 MG TABLET PO PRN (20:11)
[2017-11-06] MEDS ORDERED: ACETAMINOPHEN 325 MG TABLET (FP) PO PRN (20:13)
--- NOTE | 2017-11-06 21:22 | CONSULT ---
Consult Consult Specialty:: Pain Management Referred by:: Dr. Hill Reason for Consultation:: Back pain - History of Present Illness History of Present Illness: 67 yr old female with COPD on Prednisone has Low back pain for a week. She has difficulty in ambulation and doing ADLs. Pain is 10/10 , localized , nonradiating pain. No bowel/Bladder incontinence - History Source History Provided By: Patient Limitations to Obtaining History: No Limitations - Past Medical History Cardio/Vascular: Yes: HTN Pulmonary: Yes: COPD Gastrointestinal: Yes: Constipation, Other (ADRENAL ADENOMA, SEVERE DIVERTICULOSIS AND DIVERTICULITIS) Hepatobiliary: Yes: Other (HAD WORKUP FOR PORTAL HTN WHICH WAS NEGATIVE ( INCLUDED PORTAL PRESSURE MEASUREMENTS)) Renal/: Yes: Renal Inusuff Psych: Yes: Anxiety - Past Surgical History Past Surgical History: Yes: Colonoscopy, Upper Endoscopy - Alcohol/Substance Use Hx Alcohol Use: No History of Substance Use: reports: None - Smoking History Smoking history: Former smoker Have you smoked in the past 12 months: No Aproximately how many cigarettes per day: 0 If you are a former smoker, when did you quit?: 2010 - Social History Usual Living Arrangement: Alone (lives alone in house with 2 steps to enter and 12 inside; previously Independent in ADLs without AD) ADL: Independent History of Recent Travel: No Home Medications - Allergies Allergies/Adverse Reactions: Allergies Allergy/AdvReac Type Severity Reaction Status Date / Time Sulfa (Sulfonamide Allergy Severe Rash Verified 11/06/17 10:08 Antibiotics) - Home Medications Home Medications: Ambulatory Orders Albuterol Sulfate [Proair Hfa -] 1 - 2 inh PO PRN PRN 01/28/14 Alprazolam [Xanax] 0.5 mg PO PRN PRN 07/21/16 Anagrelide HCl [Agrylin -] 0.5 mg PO TID 11/14/16 Linaclotide [Linzess] 72 mcg PO Q2D 02/06/17 Albuterol 0.083% Nebulizer Chika [Ventolin 0.083% Nebulizer Soln -] 1 amp NEB Q4H PRN amp 06/24/17 Aspirin [ASA -] 81 mg PO DAILY tab.chew 06/24/17 Hydroxyurea [Hydrea 500Mg Capsule -] 500 mg PO MoWeFr@1000 capsule 06/24/17 Allopurinol [Zyloprim -] 200 mg PO DAILY 05/30/18 Roflumilast [Daliresp -] 500 mcg PO Q2D 10/25/17 Tiotropium [place] [Spiriva] 1 inh IH DAILY 10/25/17 traZODone HCL [Desyrel -] 100 mg PO HS 10/25/17 Oxycodone HCl/Acetaminophen [Percocet 5-325 mg Tablet] 1 - 2 tab PO Q6H PRN #20 tab MDD 8 tabs 10/31/17 Review of Systems - Review of Systems Constitutional: reports: No Symptoms Eyes: reports: No Symptoms HENT: reports: No Symptoms Neck: reports: No Symptoms Respiratory: reports: SOB Gastrointestinal: reports: Constipation Genitourinary: reports: No Symptoms Musculoskeletal: reports: Back Pain Integumentary: reports: No Symptoms Neurological: reports: No Symptoms Psychiatric: reports: No Symptoms Pain Intensity: 10 Physical Exam Vital Signs: Vital Signs Temperature 99.8 F H 11/06/17 18:20 Pulse Rate 106 H 11/06/17 18:20 Respiratory Rate 18 11/06/17 18:20 Blood Pressure 189/108 11/06/17 18:20 O2 Sat by Pulse Oximetry (%) 94 L 11/06/17 18:58 Constitutional: Yes: Calm, Anxious Eyes: Yes: WNL HENT: Yes: WNL Neck: Yes: WNL Respiratory: Yes: On Nasal O2 Gastrointestinal: Yes: WNL Musculoskeletal: Yes: Back Pain Edema: No Neurological: Yes: WNL ...Motor Strength: WNL Labs: CBC, BMP 11/06/17 11:49 11/06/17 11:49 Current Medications Generic Name Dose Route Start Last Admin Trade Name Freq PRN Reason Stop Dose Admin Acetaminophen 650 mg 11/06/17 20:13 Tylenol - PO Q6H PRN FEVER Albuterol Sulfate 1 amp 11/06/17 20:11 Ventolin 0.083% Nebulizer Soln - NEB Q4H PRN SHORT OF BREATH/WHEEZING Alprazolam 0.5 mg 11/06/17 20:11 Xanax - PO Q24H PRN ANXIETY Anagrelide HCl 0.5 mg 11/06/17 22:00 Agrylin - PO TID RANDI Aspirin 81 mg 11/07/17 10:00 Asa - PO DAILY [facility] Heparin Sodium (Porcine) 5,000 unit 11/06/17 22:00 Heparin - SQ BID [facility] Hydroxyurea 500 mg 11/08/17 10:00 Hydrea - PO MoWeFr@1000 [facility] Lidocaine 1 patch 11/07/17 10:00 Lidoderm Patch - TP DAILY [facility] Miscellaneous 1 each 11/06/17 22:00 Lidoderm Patch Removal MC DAILY@2200 [facility] Non-Formulary Medication 72 mcg 11/08/17 10:00 Linaclotide [Linzess] PO Q2D [facility] Oxycodone HCl 10 mg 11/06/17 20:13 Roxicodone - PO Q6H PRN PAIN 7-10 Roflumilast 500 mcg 11/08/17 10:00 Daliresp - PO Q2D [facility] Tiotropium [place] 1 puff 11/07/17 10:00 Spiriva - IH DAILY [facility] Trazodone HCl 100 mg 11/06/17 22:00 Desyrel - PO HS [facility] Imaging - Results Cat Scan: Report Reviewed Problem List - Problems (1) Compression fracture of lumbar vertebra Code(s): S32.000A - WEDGE COMPRESSION FRACTURE OF UNSP LUMBAR VERTEBRA, INIT Qualifiers: Lumbar vertebra fracture level: L1 Fracture type: closed Assessment/Plan Discussed in detail and answered all questions. !. Continue current medication and care 2. Physical Therapy and Respirartory Therapy. 3. Consult request to Spine Surgeon for possible Vertebroplasty. 4. MS contin 15 mg PO BID . Thanks your your kind referral. Dr. Badillo
[2017-11-06] MEDS ORDERED: PT OWN MED DRAWER 7, Y5N ONE (21:52)
[2017-11-06] MEDS: ANAGRELIDE HCL 0.5 MG CAPSULE PO SCH (21:58)
[2017-11-06] MEDS: oxyCODONE HCL 5 MG TABLET PO PRN (21:59)
[2017-11-06] MEDS: traZODone HCL 50 MG TABLET (FP) PO SCH (21:59)
[2017-11-06] MEDS: HEPARIN NA (PORCINE) 5,000 UNITS/ML 1ML VIAL SQ SCH (21:59)
[2017-11-06] MEDS ORDERED: LIDOCAINE PATCH REMOVAL MC SCH (22:00)
[2017-11-06] MEDS: LIDOCAINE PATCH REMOVAL MC SCH (22:00)
[2017-11-06] MEDS: morphine SO4 SUSTAINED ACTING 15 MG TABLET.SA PO SCH (22:00)
[2017-11-07] MEDS ORDERED: PT OWN MED DRAWER 7, Y5N ONE ×2 (05:35→20:39)
[2017-11-07] MEDS: oxyCODONE HCL 5 MG TABLET PO PRN ×2 (05:43→12:47)
[2017-11-07] MEDS: ANAGRELIDE HCL 0.5 MG CAPSULE PO SCH ×3 (05:44→23:00)
[2017-11-07] MEDS: ALBUTEROL SO4 0.083% IH SOL 2.5 MG/3 ML VIAL.NEB. NEB PRN (08:29)
[2017-11-07 08:50] LABS: URINE APPEARANCE SLCLOUDY; URINE BILIRUBIN NEGATIVE (<2.0 mg/dL); URINE COLOR YELLOW; URINE GLUCOSE (UA) NEGATIVE (NEGATIVE); URINE KETONE NEGATIVE (NEGATIVE); URINE LEUK ESTERASE NEGATIVE (NEGATIVE); URINE NITRITE NEGATIVE (NEGATIVE); URINE UROBILINOGEN NEGATIVE mg/dL (0.2-1.0)
[2017-11-07 08:57] LABS: URINE PROTEIN 2+ (NEGATIVE)
[2017-11-07 08:59] LABS: EPI CELLS RARE /HPF (FEW); URINE BACTERIA RARE /hpf (NONE SEEN)
[2017-11-07] MEDS: ASPIRIN 81 MG CHEWABLE TABLETS PO SCH (09:05)
[2017-11-07] MEDS: morphine SO4 SUSTAINED ACTING 15 MG TABLET.SA PO SCH ×2 (09:05→21:41)
[2017-11-07] MEDS: TIOTROPIUM BROMIDE 18 MCG CAPSULES IH SCH (09:05)
[2017-11-07] MEDS: LIDOCAINE 5% TOPICAL PATCH TP SCH (09:06)
[2017-11-07] MEDS: HEPARIN NA (PORCINE) 5,000 UNITS/ML 1ML VIAL SQ SCH ×3 (09:06→21:46)
--- NOTE | 2017-11-07 15:48 | PN ---
Progress Note, Physician History of Present Illness: back pain - Current Medication List Current Medications: Active Medications Acetaminophen (Tylenol -) 650 mg PO Q6H PRN PRN Reason: FEVER Albuterol Sulfate (Ventolin 0.083% Nebulizer Soln -) 1 amp NEB Q4H PRN PRN Reason: SHORT OF BREATH/WHEEZING Last Admin: 11/07/17 08:29 Dose: 1 amp Alprazolam (Xanax -) 0.5 mg PO Q24H PRN PRN Reason: ANXIETY Last Admin: 11/07/17 11:46 Dose: 0.5 mg Anagrelide HCl (Agrylin -) 0.5 mg PO TID [facility] Last Admin: 11/07/17 13:26 Dose: 0.5 mg Aspirin (Asa -) 81 mg PO DAILY [facility] Last Admin: 11/07/17 09:05 Dose: 81 mg Heparin Sodium (Porcine) (Heparin -) 5,000 unit SQ BID [facility] Last Admin: 11/07/17 09:06 Dose: 5,000 unit Hydroxyurea (Hydrea -) 500 mg PO MoWeFr@1000 [facility] Lidocaine (Lidoderm Patch -) 1 patch TP DAILY [facility] Last Admin: 11/07/17 09:06 Dose: 1 patch Miscellaneous (Lidoderm Patch Removal) 1 each [facility] DAILY@2200 [facility] Last Admin: 11/06/17 22:00 Dose: 1 each Morphine Sulfate (Ms Contin -) 15 mg PO BID [facility] Last Admin: 11/07/17 09:05 Dose: 15 mg Non-Formulary Medication (Linaclotide [Linzess]) 72 mcg PO Q2D [facility] Oxycodone HCl (Roxicodone -) 10 mg PO Q6H PRN PRN Reason: PAIN 7-10 Last Admin: 11/07/17 12:47 Dose: 10 mg Roflumilast (Daliresp -) 500 mcg PO Q2D [facility] Tiotropium [place] (Spiriva -) 1 puff IH DAILY [facility] Last Admin: 11/07/17 09:05 Dose: 1 puff Trazodone HCl (Desyrel -) 100 mg PO HS [facility] Last Admin: 11/06/17 21:59 Dose: 100 mg - Objective Vital Signs: Vital Signs Temperature 98.9 F 11/07/17 14:42 Pulse Rate 90 11/07/17 14:42 Respiratory Rate 20 11/07/17 14:42 Blood Pressure 175/96 11/07/17 14:42 O2 Sat by Pulse Oximetry (%) 92 L 11/07/17 08:00 Constitutional: Yes: Anxious HENT: Yes: Atraumatic Neck: Yes: Supple Cardiovascular: Yes: Regular Rate and Rhythm Respiratory: Yes: CTA Bilaterally Gastrointestinal: Yes: Normal Bowel Sounds Extremities: Yes: WNL Neurological: Yes: Alert, Oriented Labs: CBC, BMP 11/06/17 11:49 11/06/17 11:49 Problem List - Problems (1) COPD (chronic obstructive pulmonary disease) Assessment/Plan: prn duo nebs stable Code(s): J44.9 - CHRONIC OBSTRUCTIVE PULMONARY DISEASE, UNSPECIFIED (2) Musculoskeletal pain Assessment/Plan: on pain meds Code(s): M79.1 - MYALGIA (3) Compression fracture of lumbar vertebra Assessment/Plan: on pain meds dr alex on board will get neuro surgery eval Code(s): S32.000A - WEDGE COMPRESSION FRACTURE OF UNSP LUMBAR VERTEBRA, INIT Qualifiers: Lumbar vertebra fracture level: L1 Fracture type: closed
[2017-11-07] MEDS: SODIUM CHLORIDE 1,000 ML IV SCH (16:10)
[2017-11-07 17:30] LABS: BASO % 0.3 % (0-2.0); EOS % 0.3 % (0-4.5); HEMATOCRIT 45.2 % (32.4-45.2); HEMOGLOBIN 14.1 GM/dL (10.7-15.3); MCH 26.5 pg (25.7-33.7); MCHC 31.2 g/dl (32.0-36.0); MEAN CELL VOLUME 85.1 fl (80-96); MEAN PLT VOLUME 9.1 fl (7.5-11.1); MONO % 1.6 % (3.8-10.2); NEUT % 95.8 % (42.8-82.8); PLATELET COUNT 573 K/MM3 (134-434); RBC 5.31 M/mm3 (3.60-5.2)
[2017-11-07 17:56] LABS: ALBUMIN 3.5 g/dl (3.4-5.0); ANION GAP 7 (8-16); BLOOD UREA NITROGEN 51 mg/dL (7-18); CALCIUM 8.9 mg/dL (8.5-10.1); CHLORIDE 98 mmol/L (98-107); CO2 31 mmol/L (21-32); POTASSIUM 5.7 mmol/L (3.5-5.1); SODIUM 136 mmol/L (136-145)
[2017-11-07 17:57] LABS: WHITE BLOOD COUNT 34.6 K/mm3 (4.0-10.0)
[2017-11-07 18:02] LABS: ALK PHOS 102 U/L (45-117); BILIRUBIN,TOTAL 0.6 mg/dL (0.2-1.0); CREATININE 1.7 mg/dL (0.55-1.02); GLUCOSE,RANDOM 96 mg/dL (74-106); SGOT/AST 17 U/L (15-37); SGPT/ALT 21 U/L (12-78); TOT PROT 6.4 g/dl (6.4-8.2)
[2017-11-07] MEDS: ONDANSETRON 4 MG/2 ML VIAL IVPB PRN (19:08)
[2017-11-07] MEDS: RANITIDINE HCL 150 MG TABLET (FP) PO SCH (19:09)
[2017-11-07 19:37] LABS: ANISOCYTOSIS 2+; MACROCYTOSIS 1+; PLATELET ESTIMATE INCREASED
[2017-11-07] MEDS: traZODone HCL 50 MG TABLET (FP) PO SCH (21:41)
[2017-11-07] MEDS: LIDOCAINE PATCH REMOVAL MC SCH (23:00)
[2017-11-08] MEDS ORDERED: PT OWN MED DRAWER 7, Y5N ONE ×2 (05:24→09:28)
[2017-11-08] MEDS: oxyCODONE HCL 5 MG TABLET PO PRN (05:29)
[2017-11-08] MEDS: ANAGRELIDE HCL 0.5 MG CAPSULE PO SCH ×3 (05:33→21:40)
[2017-11-08] MEDS: ONDANSETRON 4 MG/2 ML VIAL IVPB PRN ×3 (05:34→22:41)
[2017-11-08] MEDS: SODIUM CHLORIDE 1,000 ML IV SCH (05:49)
[2017-11-08] MEDS ORDERED: ALPRAZolam 0.25 MG TABLET PO ONE (06:00)
[2017-11-08] MEDS: ALBUTEROL SO4 0.083% IH SOL 2.5 MG/3 ML VIAL.NEB. NEB PRN ×2 (06:56→11:51)
[2017-11-08] MEDS: RANITIDINE HCL 150 MG TABLET (FP) PO SCH (09:39)
[2017-11-08] MEDS: ASPIRIN 81 MG CHEWABLE TABLETS PO SCH (09:39)
[2017-11-08] MEDS: morphine SO4 SUSTAINED ACTING 15 MG TABLET.SA PO SCH (09:39)
[2017-11-08] MEDS: TIOTROPIUM BROMIDE 18 MCG CAPSULES IH SCH (09:40)
[2017-11-08] MEDS: LIDOCAINE 5% TOPICAL PATCH TP SCH (09:40)
[2017-11-08] MEDS: HEPARIN NA (PORCINE) 5,000 UNITS/ML 1ML VIAL SQ SCH ×2 (09:41→21:44)
[2017-11-08] MEDS ORDERED: PATIENT'S OWN MEDICATION (NON-FORMULARY) (Linaclotide [Linzess] 72 MCG) PO SCH (10:00)
[2017-11-08] MEDS ORDERED: ROFLUMILAST 500 MCG TABLET PO SCH (10:00)
[2017-11-08] MEDS ORDERED: HYDROXYUREA 500 MG CAPSULE PO SCH (10:00)
[2017-11-08] MEDS: predniSONE 10 MG TABLET (UD) PO ONE ×2 (14:07→15:07)
--- NOTE | 2017-11-08 14:13 | PN ---
Physical Exam: SUBJECTIVE: Patient seen and examined at bed side today. Complaining of lower back pain which has improved since admission. Has dry cough- chronic that resolves with the use of inhalers; also has nausea on/off that started yesterday. Denies chest pain, sob, palpitation, abdominal pain, vomiting, tingling, numnbess, no focal neurological deficits, urinary or bowel incontinence. Patient was admitted at [facility] on 11/06/17 for lower back pain that started a couple of weeks ago. It had been progressively getting worse to the point where she could barely move. Had excruciating back pain, describes pain as " someone cutting with a razor blade", non radiating to the lower extremities. Lives at home and doesn't need support to walk. Denies any h/o trauma or injury to her back. Was taking tylenol for the back pain without any relief. Was seen in the ED on 10/31/17 for back pain, was given Percocet and sent home. Was admitted at [facility] for a day on 10/13 for Headache PCP: Dr Ortiz Kindergarten Tutor: Dr. Medrano Waterproofing Supervisor: Dr. Ye Past medical Hx: COPD on 3 L and steroids , MPD on aspirin, thrombocytosis, Hepatosplenomegaly, CKD, anxiety, cardiomegaly, h/o of floaters, h/o diverticulitis s/p partial colectomy Allergies: Sulfa Surgical Hx: As mentioned above Smoking: Smoked 10 cigs/day > 40 yrs, quit 10 yrs ago Alcohol: Occasional Drugs: Denies OBJECTIVE: Vital Signs Period Temp Pulse Resp BP Sys/Palacios Pulse Ox Last 24 Hr 98.4 F-99.3 F 88-96 18-20 137-175/80-96 94-94 GENERAL: Middle aged women, sitting comfortably in a chair, is awake, alert, and fully oriented, in no acute distress, nasal canula in place. HEAD: Normal with no signs of trauma. EYES: EOM Intact, no palllor or icterus. ENT: Ears normal, moist mucous membranes. NECK: Supple. LUNGS: Decreased Breath sounds bilaterally, clear to auscultation bilaterally, no accessory muscle use. HEART: Regular rate and rhythm, S1, S2 without murmur. ABDOMEN: Soft, nontender, distended +, normoactive bowel sounds, no guarding, no rebound, hepatosplenomegaly +, no masses. MUSCULOSKELETAL: No rashes in the back, tenderness on deep palpation in the left side of the lower back. EXTREMITIES: 2+ pulses, warm, well-perfused, no edema. NEUROLOGICAL: No facial droop, power 5/5 in all extremities, Cranial nerves II through XII grossly intact. Normal speech, gait not observed. PSYCH: Normal mood, normal affect. SKIN: Warm, dry, normal turgor, no rashes or lesions noted Laboratory Results - last 24 hr 11/07/17 11/07/17 17:00 17:00 WBC 34.6 H* RBC 5.31 H Hgb 14.1 Hct 45.2 MCV 85.1 MCH 26.5 MCHC 31.2 L RDW 19.0 H Plt Count 573 H MPV 9.1 Absolute Neuts (auto) 33.2 Neutrophils % 95.8 H Neutrophils % (Manual) 85.0 H Band Neutrophils % 3.0 Lymphocytes % 2.0 L D Lymphocytes % (Manual) 8.0 D Monocytes % 1.6 L Monocytes % (Manual) 3 L Eosinophils % 0.3 Eosinophils % (Manual) 1.0 D Basophils % 0.3 Nucleated RBC % 0 Hypochromia 1+ Platelet Estimate Increased Polychromasia 1+ Anisocytosis 2+ Microcytosis 1+ Macrocytosis 1+ Sodium 136 Potassium 5.7 H Chloride 98 Carbon Dioxide 31 Anion Gap 7 L BUN 51 H Creatinine 1.7 H Creat Clearance w eGFR 29.98 Random Glucose 96 Calcium 8.9 Total Bilirubin 0.6 AST 17 ALT 21 Alkaline Phosphatase 102 Total Protein 6.4 Albumin 3.5 Active Medications Generic Name Dose Route Start Last Admin Trade Name Freq PRN Reason Stop Dose Admin Acetaminophen 650 mg 11/06/17 20:13 Tylenol - PO Q6H PRN FEVER Albuterol Sulfate 1 amp 11/06/17 20:11 11/08/17 11:51 Ventolin 0.083% Nebulizer Soln - NEB 1 amp Q4H PRN Administration SHORT OF BREATH/WHEEZING Alprazolam 0.5 mg 11/06/17 20:11 11/07/17 11:46 Xanax - PO 0.5 mg Q24H PRN Administration ANXIETY Anagrelide HCl 0.5 mg 11/06/17 22:00 11/08/17 14:08 Agrylin - PO 0.5 mg TID RANDI Administration Aspirin 81 mg 11/07/17 10:00 11/08/17 09:39 Asa - PO 81 mg DAILY [facility] Administration Heparin Sodium (Porcine) 5,000 unit 11/06/17 22:00 11/08/17 09:41 Heparin - SQ 5,000 unit BID RANDI Administration Hydroxyurea 500 mg 11/08/17 10:00 11/08/17 09:40 Hydrea - PO 500 mg MoWeFr@1000 RANDI Administration Sodium Chloride 1,000 mls @ 75 mls/hr 11/07/17 16:00 11/08/17 05:49 Normal Saline - IV 75 mls/hr ASDIR RANDI Administration Lidocaine 1 patch 11/07/17 10:00 11/08/17 09:40 Lidoderm Patch - TP 1 patch DAILY [facility] Administration Miscellaneous 1 each 11/06/17 22:00 11/07/17 23:00 Lidoderm Patch Removal MC 1 each DAILY@2200 RANDI Administration Morphine Sulfate 15 mg 11/06/17 22:00 11/08/17 09:39 Ms Contin - PO 15 mg BID [facility] Administration Non-Formulary Medication 72 mcg 11/08/17 10:00 Linaclotide [Linzess] PO Q2D [facility] Ondansetron HCl 4 mg 11/07/17 19:02 11/08/17 11:05 Zofran Injection IVPB 4 mg Q4H PRN Administration NAUSEA AND/OR VOMITING Oxycodone HCl 10 mg 11/06/17 20:13 11/07/17 12:47 Roxicodone - PO 10 mg Q6H PRN Administration PAIN 7-10 Prednisone 10 mg 11/09/17 10:00 Deltasone - PO DAILY [facility] Prednisone 10 mg 11/08/17 14:15 11/08/17 14:07 Deltasone - PO 11/08/17 14:16 10 mg ONCE ONE Administration Ranitidine HCl 150 mg 11/07/17 19:15 11/08/17 09:39 Zantac - PO 150 mg DAILY [facility] Administration Roflumilast 500 mcg 11/08/17 10:00 11/08/17 09:41 Daliresp - PO 500 mcg Q2D [facility] Administration Tiotropium [place] 1 puff 11/07/17 10:00 11/08/17 09:40 Spiriva - IH 1 puff DAILY [facility]ANDI Administration Trazodone HCl 100 mg 11/06/17 22:00 11/07/17 21:41 Desyrel - PO 100 mg HS RANDI Administration Lumbar spine CT without contrast 11/06/17: Acute L1 vertebral body compression fracture ASSESSMENT/PLAN: Patient is a 67 year old female with significant past medical history of COPD on 3 L and steroids , MPD on aspirin, thrombocytosis, Hepatosplenomegaly, CKD, anxiety, cardiomegaly, h/o of floaters, h/o diverticulitis s/p partial colectomy presented with severe left sided lower back pain. # Lower back pain likely due to acute L1 vertebral body compression fracture likely due to chronic steroid use lower back pain has been improving since admission As per Dr. Morales place a TLSO brace for comfort Will need outpatient DEXA scan and workup for osteoporosis Continue MS contin 15 mg PO BID # Hyperkalemia K-5.7; stat Plasma potassium Stat EKG Will give her PO Kayexalate and repeat K in the morning. # Nausea Likely secondary to multiple medications she is on Zofran 4mg Q4H PRN # COPD: Not in exacerbation continue Oxygen supplementation Prednisone increased from 10mg to 15 mg (pt says she was on 20mg, now her breathing has improved,hence on 15mg) resume Nebulizers, Spiriva, Pro Air stable # CKD: Cr 1.7 today, baseline around 1.5 Avoid nephrotoxic substances and oral hydration # Myeloproliferative Disorder: contnue Agrilyn and aspirin Dr. Sutherland has been consulted # IBS Continue Linaclotide # Anxiety Continue Trazodone HS and Xanax HS PRN # Prophylaxis For DVT: On Heparin 5000 IU sq TID For GI: Not indicated # FEN IV NS @ 75mls/hr for Acute on chronic CKD, encourage PO intake Electrolytes WNL Chol/Fat/sod controlled diet # Code status: Full Code # Disposition: Admitted in Med-Surg/Inpatient. Duration of stay unknown. Illness, Investigation and Plan of care explained to the patient. She verbalized understanding. Case discussed with Dr. Gross. Visit type - Emergency Visit Emergency Visit: Yes ED Registration Date: 11/09/17 Care time: The patient presented to the Emergency Department on the above date and was hospitalized for further evaluation of their emergent condition. - New Patient This patient is new to me today: Yes Date on this admission: 11/10/17 - Critical Care Critical Care patient: No - Discharge Referral Referred to [facility] Med P.C.: No
--- NOTE | 2017-11-08 14:20 | PN ---
Teaching Attending Note Name of Resident: Adina Fiore ATTENDING PHYSICIAN STATEMENT I saw and evaluated the patient. I reviewed the resident's note and discussed the case with the resident. I agree with the resident's findings and plan as documented. SUBJECTIVE:c/o nausea. states both the pain medication and anti-nausea medication causes nausea. multiple episode of bilious vomiting. poor oral intake during this time. did have urinary incontinence last night but no other episodes. denies CP, SOB, fever, chills, C/D. denies numbness/tingling in the legs had a DEXA scan many many years ago per pt OBJECTIVE: Last Vital Signs Temp Pulse Resp BP Pulse Ox 99.3 F 90 18 137/82 94 L 11/08/17 13:46 11/08/17 13:46 11/08/17 13:46 11/08/17 13:46 11/08/17 11:00 General mildly anxious CV S1 S2 RRR no murmur/rub/gallop lungs CTA B/L no wheezing/rales/rhonchi Abdomen soft distended. hepatomegaly back bone point tenderness ASSESSMENT AND PLAN: 67yo F with PMH COPD on home O2 3L NC, anxiety, myeloproliferative disorder, thrombophilia, diverticulosis s/p partial colectomy presented to the ER with low back pain 1. L1 vertebral fracture- likely steroid induced. evaluated by pain and Neurosurgery. will place TLSO brace. will need to call back pain management as she is refusing to take pain medications. some relief with lidoderm patch. will start low dose fentanyl patch. see what pain management recommends. give reglan prn pain, will assess pt with PT to evaluate if pain is controlled. will need to f[facility]u [facility] neurosurgery as outpatient for progress. should follow up with PMD for DEXA scan to evalute for osteopenia 2. Hyperkalemia- check EKG to assess for peaked T waves. give kayxylate. 3. CKD- slightly above baseline. likely dehydration. start low dose IVF. 4. COPD- on home 3L NC. has been having difficulty on pred 10mg which she has been titrated down from. pulmonary increased to 15mg. will f/u in office. 5. myeloproliferative disorder- leukocytosis at baseline. on hydroxyurea, asa, agrylin. can f/u wtih heme as outpatient 6. thrombophilia- at baseline. on asa 7. anxiety- xanax prn 8. DVT ppx- hep sq
--- NOTE | 2017-11-08 14:30 | CONSULT ---
Consult - text type - Consultation Consultation Note: NEUROSURGERY CONSULTATION Jasmine Saul is a 67 year old female, with a recent diagnosis of Stage 4 COPD on long-standing steroids (Prednisone) who presents to the ED via with 1 week of chronic left lower back pain The patient was seen in the [facility] ER on 11/01/27 for the same and was given Percocet with no relief of her symptoms. The patient denies any antecedent accident or injury. The patient decided to come in yesterday because her pain was getting worse and was not well controlled with Percocet. Lumbar CT reveals a mild L1 Burst fracture which should heal with bracing. TLICS score 2 (2 Morphology; 0 Neurological Injury; 0 Posterior Elements). We will place a TLSO brace for comfort and see her periodically to follow her progress.
--- NOTE | 2017-11-08 15:34 | PN ---
Progress Note (short form) - Note Progress Note: PULMONARY CONSULTATION DICTATED 10/29/17 IMP ADVANCED COPD WITH CHRONIC HYPOXEMIC RESPIRATORY FAILURE O2 DEPENDENT BACK PAIN SECONDARY MILD L1 BURST FX ACUTE ON CHRONIC KIDNEY DISEASE THROMBOCYTOSIS ANXIETY H/O COLITIS S/P PARTIAL COLECTOMY PLAN IVF ANALGESICS INHALED BRONCHODILATORS PLASMA K MONITOR LYTES,CBC,PLT CT RENAL AND HEME EVALUATION DR YAN Problem List - Problems (1) Closed fracture of lumbar vertebral body Code(s): S32.009A - UNSP FRACTURE OF UNSP LUMBAR VERTEBRA, INIT FOR CLOS FX (2) Anemia Code(s): D64.9 - ANEMIA, UNSPECIFIED Qualifiers: Anemia type: due to chronic kidney disease Chronic kidney disease stage: stage 2 (mild) Qualified Code(s): N18.2 - Chronic kidney disease, stage 2 ( mild); D63.1 - Anemia in chronic kidney disease; D63.1 - Anemia in chronic kidney disease (3) Anxiety Code(s): F41.9 - ANXIETY DISORDER, UNSPECIFIED (4) CKD (chronic kidney disease) Code(s): N18.9 - CHRONIC KIDNEY DISEASE, UNSPECIFIED (5) COPD (chronic obstructive pulmonary disease) Code(s): J44.9 - CHRONIC OBSTRUCTIVE PULMONARY DISEASE, UNSPECIFIED (6) Hyperkalemia Code(s): E87.5 - HYPERKALEMIA (7) Myeloproliferative disorder Code(s): D47.1 - CHRONIC MYELOPROLIFERATIVE DISEASE
--- NOTE | 2017-11-08 16:20 | EKG ---
Test Reason : Blood Pressure : / mmHG Vent. Rate : 086 BPM Atrial Rate : 086 BPM P-R Int : 118 ms QRS Dur : 072 ms QT Int : 340 ms P-R-T Axes : 067 032 022 degrees QTc Int : 406 ms NORMAL SINUS RHYTHM NORMAL ECG WHEN COMPARED WITH ECG OF 25-OCT-2017 14:47, CRITERIA FOR ANTEROSEPTAL INFARCT ARE NO LONGER PRESENT Confirmed by YOLANDE ROBERTS, DRAGAN ([id number]) on 11/08/2017 4:20:21 PM Referred By: Cristo CLARKE Confirmed By:DRAGAN LANIER MD
[2017-11-08] MEDS ORDERED: SODIUM POLYSTYRENE SULFONATE 15 GM/60 ML BOTTLE PO ONE (16:30)
[2017-11-08] MEDS ORDERED: ALPRAZolam 0.25 MG TABLET PO PRN (17:33)
[2017-11-08] MEDS ORDERED: FENTANYL PATCH WASTE TD PRN (17:33)
[2017-11-08] MEDS ORDERED: SODIUM CHLORIDE 1,000 ML IV SCH (17:45)
[2017-11-08] MEDS ORDERED: fentaNYL 12mcg/hr PATCH.TD72 TD SCH (17:45)
--- NOTE | 2017-11-08 18:42 | CONS ---
DATE OF CONSULTATION: 11/08/2017 PULMONARY CONSULTATION REFERRING PHYSICIAN: Kiki Tao M.D. HISTORY OF PRESENT ILLNESS: The patient is a 67-year-old white female known to me from previous hospitalization, past medical history of end-stage COPD, chronic hypoxemic respiratory failure maintained on home O2, thrombocytosis, anxiety, history of colitis, Crohn disease status post partial resection of the colon, headaches, benign adrenal mass, admitted to [facility] with complaint of 1-week history of worsening of left lower back pain. Patient was seen in the ER prior to admission on October 31. At the time she was given Percocet without any improvement. She denied any previous falls or trauma. Of note, the patient presented to the emergency room on November 06 with increasing pain. She was evaluated by Dr. Louis for neurosurgery, lumbar CT revealed mild [id number] fracture. Dr. Louis recommended TLSO brace for comfort. Patient denies any shortness of breath, denies any cough or hemoptysis. Denies any fevers, weight loss, or night sweats. PAST MEDICAL HISTORY: Again includes advanced COPD on home O2, anxiety, Crohn disease, colitis status post partial resection. SOCIAL HISTORY: Tobacco use many years but quit in 2010. No occupational exposures. REVIEW OF SYSTEMS: No orthopnea. No PND. Positive nausea. No shortness of breath. No abdominal pain. Positive back pain. CURRENT MEDICATIONS: Include Zofran, prednisone, Tylenol, heparin, Desyrel, Spiriva, Hydrea, Xanax, albuterol, normal saline, and oxycodone, and MS Contin. PHYSICAL EXAMINATION: General: The patient is a well-developed, well-nourished female awake, alert, in no acute distress. Vital signs: She is afebrile. Blood pressure 137/82, respiratory rate 18, O2 saturation 94% on 3 L. HEENT: Head is normocephalic, atraumatic. Neck: Supple. Heart: Regular. S1, S2. Chest: A few crackles at the bases. Abdomen: Soft. Bowel sounds positive. Extremities: No cyanosis, edema. LABORATORY: WBC is 34.6, hemoglobin 14.1, hematocrit 45.2 with platelet count of 573,000. Potassium 5.7, BUN 51, creatinine 1.7. Chest x-ray not performed. IMPRESSION: 1. Advanced chronic obstructive pulmonary disease with chronic hypoxemic respiratory failure on home oxygen therapy. 2. Back pain secondary to mild L1 burst fracture. 3. History of colitis, Crohn disease, status post partial bowel resection. 4. Hyperkalemia. 5. Chronic kidney disease. 6. Probable myeloproliferative disorder. 7. Thrombocytosis. PLAN: Prednisone taper, analgesics as per neurosurgery, plasma K, Hematology, Renal consultation, obtain chest x-ray. Monitor electrolytes,renal function IMTIAZ YAN M.D. [id number] MTDD
[2017-11-08] MEDS: METOCLOPRAMIDE HCL INJECTION 10 MG/2 ML VIAL IVPUSH PRN (18:51)
--- NOTE | 2017-11-08 20:11 | PN ---
Progress Note (short form) - Note Progress Note: 67 yr old female with Compression fx L1 Vetebra on Fenatnyl patch and Morphine. She has persistent nausia and vomiting . She thought it is due to change her pain medication. Adv. D/C Fentanyl patch and Morphine . Start Oxycontin 10 mg po BID and oxycodone 5 mg PO Q6 PRN . Thanks Dr. Badillo Problem List - Problems (1) Compression fracture of lumbar vertebra Code(s): S32.000A - WEDGE COMPRESSION FRACTURE OF UNSP LUMBAR VERTEBRA, INIT Qualifiers: Lumbar vertebra fracture level: L1 Fracture type: closed
[2017-11-08] MEDS ORDERED: oxyCODONE HCL 5 MG TABLET PO PRN (20:26)
[2017-11-08] MEDS: traZODone HCL 50 MG TABLET (FP) PO SCH (21:40)
[2017-11-08] MEDS: LIDOCAINE PATCH REMOVAL MC SCH (21:44)
[2017-11-08] MEDS: oxyCODONE HCL 10 MG SUSTAINED ACTING TABLET PO SCH (21:46)
--- NOTE | 2017-11-09 00:39 | PN ---
Progress Note (short form) - Note Progress Note: 11/08/2017 Note: Pt well known to us. follows for MPD. Now admitted for back pain and has L1 Burst fracture Seen by Pain mgmt/NSG-- recommended TLSO brace Cor: RSR, No murmurs, No gallops Lungs: decreased at bases Abd: Soft, Normal bowel sounds, No organomegaly Ext:No significant edema Last Vital Signs Temp Pulse Resp BP Pulse Ox 98.7 F 70 20 126/70 94 L 11/08/17 22:22 11/08/17 22:22 11/08/17 22:22 11/08/17 22:22 11/08/17 11:00 CBC, BMP 11/07/17 17:00 11/07/17 17:00 Current Medications Generic Name Dose Route Start Last Admin Trade Name Freq PRN Reason Stop Dose Admin Acetaminophen 650 mg 11/06/17 20:13 Tylenol - PO Q6H PRN FEVER Albuterol Sulfate 1 amp 11/06/17 20:11 11/08/17 11:51 Ventolin 0.083% Nebulizer Soln - NEB 1 amp Q4H PRN Administration SHORT OF BREATH/WHEEZING Alprazolam 0.25 mg 11/08/17 17:33 11/08/17 23:39 Xanax - PO 0.25 mg Q6H PRN Administration ANXIETY Anagrelide HCl 0.5 mg 11/06/17 22:00 11/08/17 21:40 Agrylin - PO 0.5 mg TID RANDI Administration Aspirin 81 mg 11/07/17 10:00 11/08/17 09:39 Asa - PO 81 mg DAILY RANDI Administration Heparin Sodium (Porcine) 5,000 unit 11/08/17 22:00 11/08/17 21:44 Heparin - SQ Not Given TID RANDI Hydroxyurea 500 mg 11/08/17 10:00 11/08/17 09:40 Hydrea - PO 500 mg MoWeFr@1000 RANDI Administration Sodium Chloride 1,000 mls @ 50 mls/hr 11/08/17 17:45 11/08/17 22:42 Normal Saline - IV 11/09/17 17:34 50 mls/hr ASDIR RANDI Administration Metoclopramide HCl 10 mg 11/08/17 17:32 11/08/17 18:51 Reglan Injection - IVPUSH 10 mg Q6H PRN Administration NAUSEA AND/OR VOMITING Miscellaneous 1 each 11/06/17 22:00 11/08/17 21:44 Lidoderm Patch Removal MC 1 each DAILY@2200 RANDI Administration Miscellaneous 1 each 11/08/17 17:33 11/08/17 20:10 Duragesic Patch Waste TD 1 each PRN PRN Administration PAIN Non-Formulary Medication 72 mcg 11/08/17 10:00 Linaclotide [Linzess] PO Q2D [facility] Ondansetron HCl 4 mg 11/07/17 19:02 11/08/17 22:41 Zofran Injection IVPB 4 mg Q4H PRN Administration NAUSEA AND/OR VOMITING Oxycodone HCl 10 mg 11/08/17 22:00 11/08/17 21:46 Oxycontin - PO Not Given BID RANDI Oxycodone HCl 5 mg 11/08/17 20:26 Roxicodone - PO Q6H PRN PAIN LEVEL 4 - 6 Prednisone 15 mg 11/09/17 10:00 Deltasone - PO DAILY [facility] Ranitidine HCl 150 mg 11/07/17 19:15 11/08/17 09:39 Zantac - PO 150 mg DAILY [facility] Administration Roflumilast 500 mcg 11/08/17 10:00 11/08/17 09:41 Daliresp - PO 500 mcg Q2D [facility]I Administration Tiotropium [place] 1 puff 11/07/17 10:00 11/08/17 09:40 Spiriva - IH 1 puff DAILY [facility] Administration Trazodone HCl 100 mg 11/06/17 22:00 11/08/17 21:40 Desyrel - PO 100 mg HS RANDI Administration A/P L1 Burst fracture-- awaiting TLSO brace. continues to have pain, awaiting pain mgmt recs Advanced COPD- Pulm f.u noted MPD -c/w ASA, agrylin and hydrea. CBC parameters acceptable renal f.u For office follow up.
[2017-11-09 08:56] LABS: ANION GAP 15 (8-16); BLOOD UREA NITROGEN 71 mg/dL (7-18); CALCIUM 8.8 mg/dL (8.5-10.1); CHLORIDE 98 mmol/L (98-107); CO2 25 mmol/L (21-32); CREATININE 1.9 mg/dL (0.55-1.02); GLUCOSE,RANDOM 108 mg/dL (74-106); POTASSIUM 5.7 mmol/L (3.5-5.1); SODIUM 138 mmol/L (136-145)
[2017-11-09 09:05] LABS: HEMATOCRIT 46.4 % (32.4-45.2); HEMOGLOBIN 14.2 GM/dL (10.7-15.3); MCH 26.6 pg (25.7-33.7); MCHC 30.6 g/dl (32.0-36.0); MEAN CELL VOLUME 86.7 fl (80-96); MEAN PLT VOLUME 8.8 fl (7.5-11.1); PLATELET COUNT 654 K/MM3 (134-434); RBC 5.36 M/mm3 (3.60-5.2); RDW 18.8 % (11.6-15.6); WHITE BLOOD COUNT 27.8 K/mm3 (4.0-10.0)
[2017-11-09] MEDS: ANAGRELIDE HCL 0.5 MG CAPSULE PO SCH ×2 (09:16→14:16)
[2017-11-09] MEDS: HEPARIN NA (PORCINE) 5,000 UNITS/ML 1ML VIAL SQ SCH ×2 (09:16→14:17)
[2017-11-09] MEDS: METOCLOPRAMIDE HCL INJECTION 10 MG/2 ML VIAL IVPUSH PRN (09:56)
[2017-11-09] MEDS ORDERED: predniSONE 10 MG TABLET (UD) PO SCH ×2 (10:00)
[2017-11-09] MEDS ORDERED: PROCHLORPERAZINE INJECTION 10 MG/2 ML VIAL IVPB PRN (10:28)
--- NOTE | 2017-11-09 10:45 | PN ---
Physical Exam: SUBJECTIVE: Patient seen and examined. Said to have been throwing up all night. Still has pain more belw the ribs bilaterally from retching. OBJECTIVE: Vital Signs Period Temp Pulse Resp BP Sys/Palacios Pulse Ox Last 24 Hr 98.7 F-99.3 F 70-90 18-20 126-137/70-82 94-95 Vital Signs Temp 98.7 F 11/08/17 22:22 Pulse 70 11/08/17 22:22 Resp 20 11/08/17 22:22 BP 126/70 11/08/17 22:22 Pulse Ox 95 11/08/17 19:00 Intake & Output 11/08/17 11/08/17 11/09/17 11:59 23:59 11:59 Intake Total 1050 Balance 1050 Intake: IV 875 Normal Saline - 1,000 ml 50 @ 50 mls/hr IV ASDIR FLOR Rx#:[id number] Normal Saline - 1,000 ml 825 @ 75 mls/hr IV ASDIR FLOR Rx#:[id number] Oral 175 Other: Voiding Method Diaper Diaper # Unmeasured Voids Void 3 Bowel Movement No # Bowel Movements 0 Intake & Output 11/06/17 11/07/17 11/08/17 11/09/17 23:59 23:59 23:59 23:59 Intake Total 450 1050 Output Total 370 Balance 80 1050 Weight 54.431 kg GENERAL: The patient is awake, alert, and fully oriented, sitting OOB in chair LUNGS: Absent wheezes or rhonchi. Basal crackles HEART:Tachycardic S1, S2 ABDOMEN: Distended, firm, non tender, bowel sounds present EXTREMITIES: 2+ pulses, warm, well-perfused, no edema. NEUROLOGICAL: AAOx3. No facial droop, able to ,move all limbs CBC, BMP 11/09/17 08:04 11/09/17 06:20 Laboratory Results - last 24 hr 11/08/17 11/09/17 11/09/17 17:00 06:20 08:04 WBC 27.8 H RBC 5.36 H Hgb 14.2 Hct 46.4 H MCV 86.7 MCH 26.6 MCHC 30.6 L RDW 18.8 H Plt Count 654 H MPV 8.8 Sodium 138 Potassium 5.7 H Plasma Potassium 5.3 H Chloride 98 Carbon Dioxide 25 Anion Gap 15 BUN 71 H Creatinine 1.9 H Random Glucose 108 H Calcium 8.8 Current Medications Acetaminophen (Tylenol -) 650 mg PO Q6H PRN PRN Reason: FEVER Albuterol Sulfate (Ventolin 0.083% Nebulizer Soln -) 1 amp NEB Q4H PRN PRN Reason: SHORT OF BREATH/WHEEZING Last Admin: 11/08/17 11:51 Dose: 1 amp Alprazolam (Xanax -) 0.25 mg PO Q6H PRN PRN Reason: ANXIETY Last Admin: 11/08/17 23:39 Dose: 0.25 mg Anagrelide HCl (Agrylin -) 0.5 mg PO TID [facility] Last Admin: 11/09/17 09:16 Dose: Not Given Aspirin (Asa -) 81 mg PO DAILY [facility] Last Admin: 11/08/17 09:39 Dose: 81 mg Heparin Sodium (Porcine) (Heparin -) 5,000 unit SQ TID [facility] Last Admin: 11/09/17 09:16 Dose: Not Given Hydroxyurea (Hydrea -) 500 mg PO MoWeFr@1000 [facility] Last Admin: 11/08/17 09:40 Dose: 500 mg Sodium Chloride (Normal Saline -) 1,000 mls @ 50 mls/hr IV ASDIR [facility] Stop: 11/09/17 17:34 Last Admin: 11/08/17 22:42 Dose: 50 mls/hr Lorazepam (Ativan Injection -) 0.5 mg IVPUSH ONCE ONE Stop: 11/09/17 11:11 Metoclopramide HCl (Reglan Injection -) 10 mg IVPUSH Q6H [facility] Miscellaneous (Lidoderm Patch Removal) 1 each MC DAILY@2200 [facility] Last Admin: 11/08/17 21:44 Dose: 1 each Miscellaneous (Duragesic Patch Waste) 1 each TD PRN PRN PRN Reason: PAIN Last Admin: 11/08/17 20:10 Dose: 1 each Non-Formulary Medication (Linaclotide [Linzess]) 72 mcg PO Q2D [facility] Ondansetron HCl (Zofran Injection) 4 mg IVPB Q4H PRN PRN Reason: NAUSEA AND/OR VOMITING Last Admin: 11/08/17 22:41 Dose: 4 mg Oxycodone HCl (Oxycontin -) 10 mg PO BID [facility] Last Admin: 11/08/17 21:46 Dose: Not Given Oxycodone HCl (Roxicodone -) 5 mg PO Q6H PRN PRN Reason: PAIN LEVEL 4 - 6 Prednisone (Deltasone -) 15 mg PO DAILY [facility] Last Admin: 11/09/17 09:56 Dose: 15 mg Prochlorperazine Edisylate (Compazine Injection -) 2.5 mg IVPB Q3H PRN PRN Reason: NAUSEA AND/OR VOMITING Ranitidine HCl (Zantac -) 150 mg PO DAILY [facility] Last Admin: 11/08/17 09:39 Dose: 150 mg Roflumilast (Daliresp -) 500 mcg PO Q2D [facility] Last Admin: 11/08/17 09:41 Dose: 500 mcg Sodium Polystyrene Sulfonate (Kayexalate -) 15 gm PO ONCE ONE Stop: 11/09/17 10:49 Tiotropium [place] (Spiriva -) 1 puff IH DAILY [facility] Last Admin: 11/08/17 09:40 Dose: 1 puff Trazodone HCl (Desyrel -) 100 mg PO HS [facility] Last Admin: 11/08/17 21:40 Dose: [address] without contrast 11/06/17: Acute L1 vertebral body compression fracture ASSESSMENT/PLAN: Patient is a 67 year old female with significant past medical history of COPD on 3 L and steroids , MPD on aspirin, thrombocytosis, Hepatosplenomegaly, CKD, anxiety, cardiomegaly, h/o of floaters, h/o diverticulitis s/p partial colectomy presented with severe left sided lower back pain. #Acute on chronic respiratory failure Pt on 3L home oxygen with COPD, sating low 80s Respiratory tx Cont O2 to maintain sats above 88% #Chest pain Could be musculoskeletal related to retching R/O ACS Pt is currently tachycardic- could be due to anxiety or pain EKG stat Cardiac profile Resume fentanyl patch Increase antiemetics- reglan flor, Zofran, compazine as needed iv ativan 0.5 stat # Lower back pain likely due to acute L1 vertebral body compression fracture Could be due to chronic steroid use Fentanyl patch As per Dr. Morales place a TLSO brace for comfort Will need outpatient DEXA scan and workup for osteoporosis oxycodone, roxicodone # Hyperkalemia K-5.7; Stat EKG Pt unable to take PO, will give kayexalate [place] # Nausea Could be due to pain or secondary to opiates Zofran 4mg Q4H PRN # COPD: Not in exacerbation continue Oxygen supplementation Prednisone increased from 10mg to 15 mg (pt says she was on 20mg, now her breathing has improved,hence on 15mg) resume Nebulizers, Spiriva, Pro Air stable # CKD: Cr trending up, baseline around 1.5 Likely due to dehydration from vomiting Avoid nephrotoxic substances Cont Iv hydration # Myeloproliferative Disorder: continue Agrilyn and aspirin Dr. Sutherland has been consulted # IBS Continue Linaclotide # Anxiety Continue Trazodone HS and Xanax HS PRN # Prophylaxis For DVT: On Heparin 5000 IU sq TID For GI: Not indicated # FEN IV NS @ 75mls/hr for Acute on chronic CKD, encourage PO intake Electrolytes WNL Chol/Fat/sod controlled diet # Dispo: Continue to monitor- change to in patient Visit type - Emergency Visit Emergency Visit: Yes ED Registration Date: 11/06/17 Care time: The patient presented to the Emergency Department on the above date and was hospitalized for further evaluation of their emergent condition. - New Patient This patient is new to me today: Yes Date on this admission: 11/09/17 - Critical Care Critical Care patient: No - Discharge Referral Referred to [facility] Med [facility] No
--- NOTE | 2017-11-09 10:58 | CONSULT ---
Consultation: REQUESTING PROVIDER: Dr. Cotton CONSULT REQUEST: We have been asked to medically evaluate this patient for hyperkalemia. HISTORY OF PRESENT ILLNESS: This is a 67 year old female with a history of esential thrombocythemia, myeloproliferative disease, severe COPD, CKD, who presented with low back pain, found to have L1 burst fracture, we were called to evaluate patient for hyperkalemia and acute kidney injury. On admission patient K 5.3, was given kalyexelate, repeat K 5.7. Baseline creatinine roun 1.5-1; today Cr 1.9. PMHx: essential thrombocytopenia, MPD, COPD, CKD, hyperkalemia, diverticulosos, back pain PSHX; colectomy Allergies: sulfa REVIEW OF SYSTEMS: CONSTITUTIONAL: Absent: fever, chills, diaphoresis, generalized weakness, malaise, loss of appetite, weight change HEENT: Absent: rhinorrhea, nasal congestion, throat pain, throat swelling, difficulty swallowing, mouth swelling, ear pain, eye pain, visual changes CARDIOVASCULAR: Absent: chest pain, syncope, palpitations, irregular heart rate, lightheadedness , peripheral edema RESPIRATORY: Absent: cough, shortness of breath, dyspnea with exertion, orthopnea, wheezing, stridor, hemoptysis GASTROINTESTINAL: Absent: abdominal pain, abdominal distension, nausea, vomiting, diarrhea, constipation, melena, hematochezia GENITOURINARY: Absent: dysuria, frequency, urgency, hesitancy, hematuria, flank pain, genital pain MUSCULOSKELETAL: Positive: back pain Absent: myalgia, arthralgia, joint swelling, back pain, neck pain SKIN: Absent: rash, itching, pallor HEMATOLOGIC/IMMUNOLOGIC: Absent: easy bleeding, easy bruising, lymphadenopathy, frequent infections ENDOCRINE: Absent: unexplained weight gain, unexplained weight loss, heat intolerance, cold intolerance NEUROLOGIC: Absent: headache, focal weakness or paresthesias, dizziness, unsteady gait, seizure, mental status changes, bladder or bowel incontinence PSYCHIATRIC: Absent: anxiety, depression, suicidal or homicidal ideation, hallucinations. PHYSICAL EXAMINATION Vital Signs - 24 hr 11/08/17 11/08/17 11/08/17 11:00 13:46 19:00 Temperature 99.3 F Pulse Rate 90 Respiratory 20 18 20 Rate Blood Pressure 137/82 O2 Sat by Pulse 94 L 95 Oximetry (%) 11/08/17 22:22 Temperature 98.7 F Pulse Rate 70 Respiratory 20 Rate Blood Pressure 126/70 O2 Sat by Pulse Oximetry (%) GENERAL: Awake, alert, and fully oriented, in pain from back injury LUNGS: right LL crackles on inspiration HEART: Regular rate and rhythm, normal S1 and S2 without murmur, rub or gallop. ABDOMEN: abdominal distention ; tympanic MUSCULOSKELETAL: limited movement to back pain UPPER EXTREMITIES: 2+ pulses, warm, well-perfused. No cyanosis. No clubbing. Cap refill <2 seconds. No peripheral edema. LOWER EXTREMITIES: 2+ pulses, warm, well-perfused. No calf tenderness. No peripheral edema. NEUROLOGICAL: Cranial nerves II-XII intact. Normal speech. PSYCHIATRIC: Cooperative. Good eye contact. Appropriate mood and affect. SKIN: Warm, dry, normal turgor, no rashes or lesions noted. Laboratory Results - last 24 hr 11/08/17 11/09/17 11/09/17 17:00 06:20 08:04 WBC 27.8 H RBC 5.36 H Hgb 14.2 Hct 46.4 H MCV 86.7 MCH 26.6 MCHC 30.6 L RDW 18.8 H Plt Count 654 H MPV 8.8 Sodium 138 Potassium 5.7 H Plasma Potassium 5.3 H Chloride 98 Carbon Dioxide 25 Anion Gap 15 BUN 71 H Creatinine 1.9 H Random Glucose 108 H Calcium 8.8 Active Medications Generic Name Dose Route Start Last Admin Trade Name Freq PRN Reason Stop Dose Admin Acetaminophen 650 mg 11/06/17 20:13 Tylenol - PO Q6H PRN FEVER Albuterol Sulfate 1 amp 11/06/17 20:11 11/08/17 11:51 Ventolin 0.083% Nebulizer Soln - NEB 1 amp Q4H PRN Administration SHORT OF BREATH/WHEEZING Alprazolam 0.25 mg 11/08/17 17:33 11/08/17 23:39 Xanax - PO 0.25 mg Q6H PRN Administration ANXIETY Anagrelide HCl 0.5 mg 11/06/17 22:00 11/09/17 09:16 Agrylin - PO Not Given TID [facility]I Aspirin 81 mg 11/07/17 10:00 11/08/17 09:39 Asa - PO 81 mg DAILY [facility] Administration Heparin Sodium (Porcine) 5,000 unit 11/08/17 22:00 11/09/17 09:16 Heparin - SQ Not Given TID [facility] Hydroxyurea 500 mg 11/08/17 10:00 11/08/17 09:40 Hydrea - PO 500 mg MoWeFr@1000 [facility] Administration Sodium Chloride 1,000 mls @ 50 mls/hr 11/08/17 17:45 11/08/17 22:42 Normal Saline - IV 11/09/17 17:34 50 mls/hr ASDIR [facility] Administration Lorazepam 0.5 mg 11/09/17 11:10 Ativan Injection - IVPUSH 11/09/17 11:11 ONCE ONE Metoclopramide HCl 10 mg 11/09/17 10:30 Reglan Injection - IVPUSH Q6H [facility] Miscellaneous 1 each 11/06/17 22:00 11/08/17 21:44 Lidoderm Patch Removal MC 1 each DAILY@2200 [facility] Administration Miscellaneous 1 each 11/08/17 17:33 11/08/17 20:10 Duragesic Patch Waste TD 1 each PRN PRN Administration PAIN Non-Formulary Medication 72 mcg 11/08/17 10:00 Linaclotide [Linzess] PO Q2D [facility] Ondansetron HCl 4 mg 11/07/17 19:02 11/08/17 22:41 Zofran Injection IVPB 4 mg Q4H PRN Administration NAUSEA AND/OR VOMITING Oxycodone HCl 10 mg 11/08/17 22:00 11/08/17 21:46 Oxycontin - PO Not Given BID [facility] Oxycodone HCl 5 mg 11/08/17 20:26 Roxicodone - PO Q6H PRN PAIN LEVEL 4 - 6 Prednisone 15 mg 11/09/17 10:00 11/09/17 09:56 Deltasone - PO 15 mg DAILY [facility] Administration Prochlorperazine Edisylate 2.5 mg 11/09/17 10:28 Compazine Injection - IVPB Q3H PRN NAUSEA AND/OR VOMITING Ranitidine HCl 150 mg 11/07/17 19:15 11/08/17 09:39 Zantac - PO 150 mg DAILY [facility] Administration Roflumilast 500 mcg 11/08/17 10:00 11/08/17 09:41 Daliresp - PO 500 mcg Q2D [facility] Administration Sodium Polystyrene Sulfonate 15 gm 11/09/17 10:48 Kayexalate - PO 11/09/17 10:49 ONCE ONE Tiotropium [place] 1 puff 11/07/17 10:00 11/08/17 09:40 Spiriva - IH 1 puff DAILY [facility] Administration Trazodone HCl 100 mg 11/06/17 22:00 11/08/17 21:40 Desyrel - PO 100 mg HS [facility] Administration ASSESSMENT/PLAN: This is a 67 year old female with history of essential thrombocytosis, MPD, COPD, CKD admitted for intrctble low bck pin, found to have L1 burst fracture. Called to evaluate for hyperkalemia and acute kidney injury. #hyperkalemia: likely psuedo, check plasma K -can be due to myeolproliferative disorder/elevated white count due to cell fragility/lysis and K going out of cell -s/p kayexalte; try to avoid is currently distened and has had hx of colon resection; and has not had a BM since admission -monitor K; if continues to rise; stat ECG -IVF -low potassium diet #acute on chronic CKD stage 3b; sec to meds? vs vol status? -will check urine lytes/creatinine -Renal US 2015 with bilateral renl cysts; will get repeat if continues to rise -avoid neprotoxic agents -renal dose meds -cont IVF hydration, change to 1/2 ns #essential thrombocytopenia/ myeloproliferative disease -cont asa/hyroxyurea/grylin -heme following #COPD: -cont inhaled broncodilators -pulm following #L1 burst fracture; -TLSO brace -neurox following - avoid constipation Dispo: We will continue to follow the patient. Thank you for this consultative opportunity. Visit type - Emergency Visit Emergency Visit: No - New Patient This patient is new to me today: Yes Date on this admission: 11/09/17 - Critical Care Critical Care patient: No
[2017-11-09] MEDS ORDERED: LORazepam 2 MG/ML SDV VIAL IVPUSH ONE (11:10)
[2017-11-09] MEDS ORDERED: SODIUM POLYSTYRENE SULFONATE 15 GM/60 ML BOTTLE PO ONE (11:15)
[2017-11-09] MEDS: METOCLOPRAMIDE HCL INJECTION 10 MG/2 ML VIAL IVPUSH SCH ×2 (11:46→16:07)
[2017-11-09] MEDS ORDERED: SODIUM POLYSTYRENE SULFONATE 15 GM/60 ML BOTTLE RC ONE (12:15)
[2017-11-09] MEDS ORDERED: CALCIUM GLUCONATE 10% - 1,000 MG/10 ML VIAL IVPB ONE (12:20)
[2017-11-09] MEDS ORDERED: FUROSEMIDE 40 MG/4 ML INJECTABLE VIAL IVPUSH ONE (12:23)
[2017-11-09] MEDS ORDERED: ADENOSINE 6 MG/2 ML VIAL IVPUSH ONE (12:36)
--- NOTE | 2017-11-09 12:36 | PN ---
Teaching Attending Note Name of Resident: Margo Lewis ATTENDING PHYSICIAN STATEMENT I saw and evaluated the patient. I reviewed the resident's note and discussed the case with the resident. I agree with the resident's findings and plan as documented. SUBJECTIVE:c/o nausea. unable to eat or take any oral medications due to the nausea. has had persistent vomiting of bile since last night. continuing to have some chest heaviness. denies fever, chills, cough OBJECTIVE: Last Vital Signs Temp Pulse Resp BP Pulse Ox 98.7 F 70 20 126/70 95 11/08/17 22:22 11/08/17 22:22 11/08/17 22:22 11/08/17 22:22 11/08/17 19:00 General mildly anxious, mild distress due to nausea, tachypnic CV S1 S2 tachy lungs Coarse breath sounds Abdomen soft distended. hepatomegaly ASSESSMENT AND PLAN: 67yo F with PMH COPD on home O2 3L NC, anxiety, myeloproliferative disorder, thrombophilia, diverticulosis s/p partial colectomy presented to the ER with low back pain 1. L1 vertebral fracture- likely steroid induced. evaluated by pain and Neurosurgery. has been unable to tolerate any oral pain medications. refusing IV medications. will place back lidoderm patch. awaiting TSLO brace. joseph hold PT at this time. pain management to weigh in on alternative treatments for pain. should follow up with PMD for DEXA scan to evalute for osteopenia 2. SVT- EKG done showing SVT 133bpm. assoc chest pressure likely due to tachycardia. will transport pt to 4w for cardiac montioring and give adenosine 6mg x1 and monitor to see if HR slows. 3. Nausea and vomiting- can be pain or medication induced. start reglan RTC. compazine and zofran prn nausea. increase IVF for dehydration. 4. Hyperkalemia- no peaked T waves on EKG. will give kayexylate [place] once more medically stable 5. CKD- likely dehydration. increase IVF. trend Cr 6. COPD- on home 3L NC. slightly tachypnic requiring higher O2 requirements 4L. will give breathing treatment. check CXR. concern for aspiration with the frequent vomiting. cont pred 15mg. pulmonary on board. 7. myeloproliferative disorder- leukocytosis at baseline. on hydroxyurea, asa, agrylin. can f/u wtih heme as outpatient 8. thrombophilia- at baseline. on asa 9. anxiety- xanax prn 10. DVT ppx- hep sq 11. transfer to tele for continuous cardiac monitoring
[2017-11-09 13:10] LABS: ANION GAP 13 (8-16); BLOOD UREA NITROGEN 75 mg/dL (7-18); CALCIUM 9.3 mg/dL (8.5-10.1); CHLORIDE 95 mmol/L (98-107); CO2 29 mmol/L (21-32); CREATININE 2.2 mg/dL (0.55-1.02); GLUCOSE,RANDOM 100 mg/dL (74-106); MAGNESIUM 2.3 mg/dL (1.8-2.4); POTASSIUM 5.5 mmol/L (3.5-5.1); SODIUM 137 mmol/L (136-145)
[2017-11-09] MEDS: oxyCODONE HCL 10 MG SUSTAINED ACTING TABLET PO SCH (13:24)
[2017-11-09] MEDS: ASPIRIN 81 MG CHEWABLE TABLETS PO SCH (13:24)
[2017-11-09] MEDS: TIOTROPIUM BROMIDE 18 MCG CAPSULES IH SCH (13:24)
[2017-11-09] MEDS: RANITIDINE HCL 150 MG TABLET (FP) PO SCH (13:24)
[2017-11-09] MEDS ORDERED: PT OWN MED DRAWER 7, Y5N ONE (13:27)
--- NOTE | 2017-11-09 13:57 | HOSP ---
Subjective - Review of Symptoms Subjective: EKG done showing SVT 138bpm transferred to for cardiac monitoring adenosine 6mg x1 and 12mg x1 given with no effect cardizem 10mg IVP x1 given. HR slowed to 114 pt tolerated well. resting comfortable spoke with cardio and aware. will evaluate the patient Physical Examination Vital Signs: Vital Signs Temperature 98.7 F 11/08/17 22:22 Pulse Rate 70 11/08/17 22:22 Respiratory Rate 20 11/08/17 22:22 Blood Pressure 126/70 11/08/17 22:22 O2 Sat by Pulse Oximetry (%) 95 11/08/17 19:00 Labs: CBC, BMP 11/09/17 08:04 11/09/17 11:35
[2017-11-09 13:59] LABS: ANISOCYTOSIS 1+; MACROCYTOSIS 1+; OVALOCYTE 1+; PLATELET ESTIMATE INCREASED
[2017-11-09] MEDS ORDERED: dilTIAZem HCL 25 MG/5 ML - 5 ML VIAL IVPUSH ONE (14:15)
[2017-11-09] MEDS ORDERED: SODIUM CHLORIDE 0.45% 1,000 ML IV SCH (14:15)
[2017-11-09] MEDS ORDERED: DILTIAZEM INJECTION 125 MG in SODIUM CHLORIDE 100 ML IVPB SCH (14:30)
--- NOTE | 2017-11-09 14:33 | PN ---
Teaching Attending Note Name of Resident: Jaimie Andrews (Nephrology) ATTENDING PHYSICIAN STATEMENT I saw and evaluated the patient. I reviewed the resident's note and discussed the case with the resident. I agree with the resident's findings and plan as documented. Nephrology Pt is a 67 year old female with is admitted with lumbar fracture. I was called to evaluate her for CKD and hyperkalemia. She has history of essenstion thrombocytosis. She has also had elevated WBC. She complains of back pain from the fracture. phx ckd, hyperkalemia htn anxiety allergies sulfa fam hx denies ros back pain Current Medications Generic Name Dose Route Start Last Admin Trade Name Freq PRN Reason Stop Dose Admin Acetaminophen 650 mg 11/06/17 20:13 Tylenol - PO Q6H PRN FEVER Albuterol Sulfate 1 amp 11/06/17 20:11 11/08/17 11:51 Ventolin 0.083% Nebulizer Soln - NEB 1 amp Q4H PRN Administration SHORT OF BREATH/WHEEZING Alprazolam 0.25 mg 11/08/17 17:33 11/08/17 23:39 Xanax - PO 0.25 mg Q6H PRN Administration ANXIETY Anagrelide HCl 0.5 mg 11/06/17 22:00 11/09/17 14:16 Agrylin - PO 0.5 mg TID [facility]I Administration Aspirin 81 mg 11/07/17 10:00 11/09/17 13:24 Asa - PO Not Given DAILY [facility] Heparin Sodium (Porcine) 5,000 unit 11/08/17 22:00 11/09/17 14:17 Heparin - SQ 5,000 unit TID [facility]I Administration Hydroxyurea 500 mg 11/08/17 10:00 11/08/17 09:40 Hydrea - PO 500 mg MoWeFr@1000 [facility] Administration Sodium Chloride 1,000 mls @ 65 mls/hr 11/09/17 14:15 11/09/17 14:17 1/2 Normal Saline IV 65 mls/hr ASDIR [facility]I Administration Diltiazem HCl 125 mg/ Sodium 125 mls @ 5 mls/hr 11/09/17 14:30 Chloride IVPB TITR [facility]I Protocol 5 MG/HR Metoclopramide HCl 10 mg 11/09/17 10:30 11/09/17 11:46 Reglan Injection - IVPUSH Not Given Q6H-IV [facility] Miscellaneous 1 each 11/06/17 22:00 11/08/17 21:44 Lidoderm Patch Removal MC 1 each DAILY@2200 [facility] Administration Miscellaneous 1 each 11/08/17 17:33 11/08/17 20:10 Duragesic Patch Waste TD 1 each PRN PRN Administration PAIN Non-Formulary Medication 72 mcg 11/08/17 10:00 Linaclotide [Linzess] PO Q2D [facility] Ondansetron HCl 4 mg 11/07/17 19:02 11/08/17 22:41 Zofran Injection IVPB 4 mg Q4H PRN Administration NAUSEA AND/OR VOMITING Oxycodone HCl 10 mg 11/08/17 22:00 11/09/17 13:24 Oxycontin - PO Not Given BID [facility] Oxycodone HCl 5 mg 11/08/17 20:26 Roxicodone - PO Q6H PRN PAIN LEVEL 4 - 6 Prednisone 15 mg 11/09/17 10:00 11/09/17 09:56 Deltasone - PO 15 mg DAILY [facility] Administration Prochlorperazine Edisylate 2.5 mg 11/09/17 10:28 Compazine Injection - IVPB Q3H PRN NAUSEA AND/OR VOMITING Ranitidine HCl 150 mg 11/07/17 19:15 11/09/17 13:24 Zantac - PO Not Given DAILY [facility] Roflumilast 500 mcg 11/08/17 10:00 11/08/17 09:41 Daliresp - PO 500 mcg Q2D [facility] Administration Tiotropium [place] 1 puff 11/07/17 10:00 11/09/17 13:24 Spiriva - IH Not Given DAILY [facility] Trazodone HCl 100 mg 11/06/17 22:00 11/08/17 21:40 Desyrel - PO 100 mg HS [facility] Administration cardio s1s2 resp wheeze GI distended, non tender ext neg edema neuro awake skin neg rash Laboratory Tests 11/07/17 11/07/17 11/09/17 06:15 17:00 08:04 WBC 34.6 H* 27.8 H Plt Count 654 H Potassium Plasma Potassium Urine Protein 2+ H 11/09/17 11/09/17 11:35 13:20 WBC Plt Count Potassium 5.5 H Plasma Potassium 4.8 Urine Protein Impression 1. CKD with acute component 2. hyperkalemia - likely in part pseudohyperkalemia 3. copd exacerbation 4. essential thrombocytosis 5. htn 6. anxiety 7. diverticulosis 8. hemorrhoids 9. leukocytosis Plan - plasma potassium is normal - likely pseudohyperkalemia - change fluids to 1/2 ns - repeat labs in am - check urine lytes - check renal ultrasound - will follow Dr Argueta
--- NOTE | 2017-11-09 15:33 | EKG ---
Test Reason : Blood Pressure : / mmHG Vent. Rate : 133 BPM Atrial Rate : 073 BPM P-R Int : 000 ms QRS Dur : 084 ms QT Int : 308 ms P-R-T Axes : 000 065 010 degrees QTc Int : 458 ms SUPRAVENTRICULAR TACHYCARDIA INFERIOR INFARCT , AGE UNDETERMINED ANTERIOR INFARCT , AGE UNDETERMINED ABNORMAL ECG WHEN COMPARED WITH ECG OF 08-NOV-2017 15:34, VENT. RATE HAS INCREASED BY 47 BPM INFERIOR INFARCT IS NOW PRESENT Confirmed by EUSEBIA GARCIA MD ([id number]) on 11/09/2017 3:33:28 PM Referred By: Julien ESTRELLA Confirmed By:EUSEBIA GARCIA MD
[2017-11-09] MEDS ORDERED: dilTIAZem HCL 50 MG/10 ML - 10 ML VIAL IVPUSH ONE (16:00)
[2017-11-09] MEDS: ALBUTEROL SO4 0.083% IH SOL 2.5 MG/3 ML VIAL.NEB. NEB PRN (16:02)
[2017-11-09] MEDS ORDERED: METOPROLOL TARTRATE 5 MG/5 ML VIAL IVPUSH ONE (16:45)
--- NOTE | 2017-11-09 17:14 | CON.CARD ---
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 Received adenosine, Cardizem IV without sig effects, IV Lopressor converted to SR. Transferred for possible aspiration PNA, cough and altered mental status placed on VM->bipap, CXR shows RLL PNA. - History Source History Provided By: Medical Record Limitations to Obtaining History: Clinical Condition - Past Medical History Cardio/Vascular: Yes: HTN Pulmonary: Yes: COPD Gastrointestinal: Yes: Constipation, Other (ADRENAL ADENOMA, SEVERE DIVERTICULOSIS AND DIVERTICULITIS) Hepatobiliary: Yes: Other (HAD WORKUP FOR PORTAL HTN WHICH WAS NEGATIVE ( INCLUDED PORTAL PRESSURE MEASUREMENTS)) Renal/: Yes: Renal Inusuff Psych: Yes: Anxiety - Past Surgical History Past Surgical History: Yes: Colonoscopy, Upper Endoscopy - Alcohol/Substance Use Hx Alcohol Use: No History of Substance Use: reports: None - Smoking History Smoking history: Former smoker Have you smoked in the past 12 months: No Aproximately how many cigarettes per day: 0 If you are a former smoker, when did you quit?: 2010 - Social History Usual Living Arrangement: Alone (lives alone in house with 2 steps to enter and 12 inside; previously Independent in ADLs without AD) ADL: Independent History of Recent Travel: No Home Medications - Allergies Allergies/Adverse Reactions: Allergies Allergy/AdvReac Type Severity Reaction Status Date / Time Sulfa (Sulfonamide Allergy Severe Rash Verified 11/06/17 10:08 Antibiotics) - Home Medications Home Medications: Ambulatory Orders Albuterol Sulfate [Proair Hfa -] 1 - 2 inh PO PRN PRN 01/28/14 Alprazolam [Xanax] 0.25 mg PO PRN PRN 07/21/16 Anagrelide HCl [Agrylin -] 0.5 mg PO TID 11/14/16 Linaclotide [Linzess] 72 mcg PO Q2D 02/06/17 Albuterol 0.083% Nebulizer Chika [Ventolin 0.083% Nebulizer Soln -] 1 amp NEB Q4H PRN amp 06/24/17 Aspirin [ASA -] 81 mg PO DAILY tab.chew 06/24/17 Hydroxyurea [Hydrea 500Mg Capsule -] 500 mg PO MoWeFr@1000 capsule 06/24/17 Allopurinol [Zyloprim -] 200 mg PO DAILY 10/25/17 Roflumilast [Daliresp -] 500 mcg PO Q2D 10/25/17 Tiotropium Holman [Spiriva] 1 inh IH DAILY 10/25/17 traZODone HCL [Desyrel -] 100 mg PO HS 10/25/17 Oxycodone HCl/Acetaminophen [Percocet 5-325 mg Tablet] 1 - 2 tab PO Q6H PRN #20 tab MDD 8 tabs 10/31/17 Prednisone [Deltasone] 20 mg PO DAILY 11/08/17 Review of Systems Unable to obtain ROS, reason: Clinical condition Vital Signs: Vital Signs Temperature 99.8 F H 11/09/17 16:31 Pulse Rate 125 H 11/09/17 16:31 Respiratory Rate 24 11/09/17 16:31 Blood Pressure 112/79 11/09/17 16:31 O2 Sat by Pulse Oximetry (%) 95 11/09/17 13:58 Constitutional: Yes: No Distress, Calm, Thin Neck: Yes: Supple Respiratory: Yes: Diminished, On BiPap Gastrointestinal: Yes: Soft, Hypoactive Bowel Sounds Cardiovascular: Yes: Regular Rate and Rhythm JVD: No Carotid Bruit: No Heart Sounds: Yes: S1, S2 Edema: No - Other Data Labs, Other Data: CBC, BMP 11/09/17 08:04 11/09/17 11:35 Troponin, BNP 11/09/17 11:35 Troponin I < 0.02 Troponin, BNP 11/09/17 11:35 Troponin I < 0.02 SVT @ 133 c/w previous NSR @ [address]-T changes Ejection Fraction %: LVEF > or = 40 % Imaging - Results Chest X-ray: Report Reviewed (RLL PNA) Problem List - Problems (1) [id number] kidney injury Code(s): N17.9 - ACUTE KIDNEY FAILURE, UNSPECIFIED; N18.9 - CHRONIC KIDNEY DISEASE, UNSPECIFIED Qualifiers: Acute renal failure type: unspecified (2) Paroxysmal supraventricular tachycardia Code(s): I47.1 - SUPRAVENTRICULAR TACHYCARDIA (3) Acute on chronic respiratory failure with hypoxia and hypercapnia Code(s): J96.21 - ACUTE AND CHRONIC RESPIRATORY FAILURE WITH HYPOXIA; J96.22 - ACUTE AND CHRONIC RESPIRATORY FAILURE WITH HYPERCAPNIA (4) Closed fracture of lumbar vertebral body Code(s): S32.009A - UNSP FRACTURE OF UNSP LUMBAR VERTEBRA, INIT FOR CLOS FX (5) COPD (chronic obstructive pulmonary disease) Code(s): J44.9 - CHRONIC OBSTRUCTIVE PULMONARY DISEASE, UNSPECIFIED Qualifiers: COPD type: unspecified COPD Qualified Code(s): J44.9 - Chronic obstructive pulmonary disease, unspecified (6) Myeloproliferative disorder Code(s): D47.1 - CHRONIC MYELOPROLIFERATIVE DISEASE (7) Hyperkalemia Code(s): E87.5 - HYPERKALEMIA Assessment/Plan Echo: Jun 20, 2017 Normal LV size with hyperdynamic LV fxn, tr MR, TR mod pulm HTN RVSP 47 mmHg 1. PSVT->SR 2. Acute on chronic hypercapneic, hypoxic respiratory failure, RLL PNA possible aspiration 3. Steroid and home-O2 dependent COPD 4. Myeloproliferative disorder 5. Acute on CKD with hyperkalemia 6. Nausea and emesis referable to narcotics 7. L1 compression fracture PLAN: 1. Bipap to maintain saO2>90%, BD, steroids, abx coverage for presumed asp pna, hydration with monitor renal fxn 2. IV Lopressor as needed (observe for bronchospasm, tolerated first dose) 3. TLSO brace 4. Thank you for consultative opportunity
[2017-11-09] MEDS: AMPICILLIN NA/SULBACTAM NA 1.5 GM in SODIUM CHLORIDE 100 ML IVPB SCH (17:34)
[2017-11-09 17:41] LABS: ARTERIAL BLD GAS O2 SATURATION 91.8 % (90-98.9); ARTERIAL BLOOD GAS BASE EXCESS -0.8 meq/l (-2-2); ARTERIAL BLOOD GAS PCO2 56.9 mmHg (35-45); ARTERIAL BLOOD GAS PO2 67.9 mmHg (80-100); ARTERIAL BLOOD GAS pH 7.29 (7.35-7.45)
[2017-11-09 17:43] LABS: ALLENS TEST POSITIVE
[2017-11-09 18:26] LABS: URINE APPEARANCE SLCLOUDY; URINE BILIRUBIN NEGATIVE (<2.0 mg/dL); URINE COLOR DKYELLOW; URINE GLUCOSE (UA) NEGATIVE (NEGATIVE); URINE KETONE NEGATIVE (NEGATIVE); URINE LEUK ESTERASE NEGATIVE (NEGATIVE); URINE NITRITE NEGATIVE (NEGATIVE); URINE UROBILINOGEN NEGATIVE mg/dL (0.2-1.0)
[2017-11-09 18:30] LABS: URINE PROTEIN 2+ (NEGATIVE)
[2017-11-09 18:42] LABS: EPI CELLS RARE /HPF (FEW); URINE MUCUS RARE
[2017-11-09] MEDS: LIDOCAINE PATCH REMOVAL MC SCH (19:00)
[2017-11-09] MEDS: ONDANSETRON 4 MG/2 ML VIAL IVPB PRN (19:57)
[2017-11-09 21:03] LABS: BASO % 0.3 % (0-2.0); EOS % 0.1 % (0-4.5); HEMATOCRIT 46.3 % (32.4-45.2); LYMPH % 0.6 % (8-40); MCH 25.9 pg (25.7-33.7); MCHC 30.3 g/dl (32.0-36.0); MEAN CELL VOLUME 85.7 fl (80-96); MEAN PLT VOLUME 10.5 fl (7.5-11.1); MONO % 2.3 % (3.8-10.2); NEUT % 96.7 % (42.8-82.8); PLATELET COUNT 951 K/MM3 (134-434); RDW 18.2 % (11.6-15.6)
--- NOTE | 2017-11-09 21:07 | CONSULT ---
Consult Consult Specialty:: PULM/CCM Referred by:: Dr. Renetta Gross Reason for Consultation:: AMS - History of Present Illness Chief Complaint: AMS History of Present Illness: Ms. Saul is a 66 y/o woman w/ endstage home O2 & chronic steroid-dependent COPD , MPD, anxiety, hemorrhoids, diverticulosis, cardiomegaly, splenomegaly, hepatomegaly, IBS, and thrombocytopenia admitted for back pain on 11/06 06/30 an L1 compression fx. C/c/b N/V & AMS in the setting of narcotics for back pain. RR called this PM for PSVT --> the 130's (converted back to RSR w/: adenosine, IV cardizem, & IV Lopressor). Pt admitted now to the ICU for AMS, ARF, & asp PNA. - History Source History Provided By: Family Member, Medical Record Limitations to Obtaining History: Clinical Condition - Past Medical History Cardio/Vascular: Yes: HTN Pulmonary: Yes: COPD Gastrointestinal: Yes: Constipation, Other (ADRENAL ADENOMA, SEVERE DIVERTICULOSIS AND DIVERTICULITIS) Hepatobiliary: Yes: Other (HAD WORKUP FOR PORTAL HTN WHICH WAS NEGATIVE ( INCLUDED PORTAL PRESSURE MEASUREMENTS)) Renal/: Yes: Renal Inusuff Psych: Yes: Anxiety - Past Surgical History Past Surgical History: Yes: Colonoscopy, Upper Endoscopy - Alcohol/Substance Use Hx Alcohol Use: No History of Substance Use: reports: None - Smoking History Smoking history: Former smoker Have you smoked in the past 12 months: No Aproximately how many cigarettes per day: 0 If you are a former smoker, when did you quit?: 2010 - Social History Usual Living Arrangement: Alone (lives alone in house with 2 steps to enter and 12 inside; previously Independent in ADLs without AD) ADL: Independent History of Recent Travel: No Home Medications - Allergies Allergies/Adverse Reactions: Allergies Allergy/AdvReac Type Severity Reaction Status Date / Time Sulfa (Sulfonamide Allergy Severe Rash Verified 11/06/17 10:08 Antibiotics) - Home Medications Home Medications: Ambulatory Orders Albuterol Sulfate [Proair Hfa -] 1 - 2 inh PO PRN PRN 01/28/14 Alprazolam [Xanax] 0.25 mg PO PRN PRN 07/21/16 Anagrelide HCl [Agrylin -] 0.5 mg PO TID 06/19/17 Linaclotide [Linzess] 72 mcg PO Q2D 02/06/17 Albuterol 0.083% Nebulizer Chika [Ventolin 0.083% Nebulizer Soln -] 1 amp NEB Q4H PRN amp 06/24/17 Aspirin [ASA -] 81 mg PO DAILY tab.chew 06/24/17 Hydroxyurea [Hydrea 500Mg Capsule -] 500 mg PO MoWeFr@1000 capsule 06/24/17 Allopurinol [Zyloprim -] 200 mg PO DAILY 10/25/17 Roflumilast [Daliresp -] 500 mcg PO Q2D 10/25/17 Tiotropium Sheldon [Spiriva] 1 inh IH DAILY 10/25/17 traZODone HCL [Desyrel -] 100 mg PO HS 10/25/17 Oxycodone HCl/Acetaminophen [Percocet 5-325 mg Tablet] 1 - 2 tab PO Q6H PRN #20 tab MDD 8 tabs 10/31/17 Prednisone [Deltasone] 20 mg PO DAILY 11/08/17 Family Disease History - Family Disease History Family History: Unremarkable Review of Systems Unable to obtain ROS, reason: AMS Physical Exam Vital Signs: Vital Signs Temperature 99.0 F 11/09/17 20:00 Pulse Rate 106 H 11/09/17 20:00 Respiratory Rate 23 11/09/17 20:00 Blood Pressure 136/64 11/09/17 20:00 O2 Sat by Pulse Oximetry (%) 93 L 11/09/17 18:20 Constitutional: Yes: Anxious, Cachectic, Thin Eyes: Yes: WNL, Conjunctiva Clear HENT: Yes: WNL, Atraumatic, Normocephalic Neck: Yes: WNL, Supple, Thyromegaly Cardiovascular: Yes: WNL, Regular Rate and Rhythm Respiratory: Yes: Accessory Muscle Use, Diminished, Hyperresonant, On Venti-Mask Gastrointestinal: Yes: WNL, Soft, Distention ...Rectal Exam: Yes: Deferred Renal/: Yes: Oliguria Breast(s): Yes: WNL Musculoskeletal: Yes: Back Pain Extremities: Yes: WNL Edema: No Peripheral Pulses WNL: Yes Neurological: Yes: Confusion ...Motor Strength: WNL Psychiatric: Yes: WNL, Alert Labs: CBC, BMP 11/09/17 20:20 11/09/17 20:20 ABG Results ABG pH 7.29 (7.35-7.45) L 11/09/17 16:40 ABG pCO2 at Pt Temp 56.9 mmHg (35-45) H 11/09/17 16:40 ABG pO2 at Pt Temp 67.9 mmHg (80-100) L 11/09/17 16:40 ABG HCO3 26.5 meq/L (22-26) H 11/09/17 16:40 ABG O2 Sat (Measured) 91.8 % (90-98.9) 11/09/17 16:40 ABG O2 Content 18.4 % vol (15-22) 11/09/17 16:40 ABG Base Excess -0.8 meq/l (-2-2) 11/09/17 16:40 Troponin, BNP 11/09/17 11/09/17 11:35 20:20 Troponin I < 0.02 0.04 Microbiology 11/07/17 17:50 Urine - Urine Clean Catch Urine Culture - Final NO GROWTH OBTAINED Imaging - Results Chest X-ray: Image Reviewed (11/09: Right parahilar right lower lobe airspace opacities concerning for pneumonia. No pneumothorax, or large pleural effusion is seen.) Ultrasound: Report Reviewed (TTE 06/20/17: Normal LV size with hyperdynamic LV fxn, tr MR, TR mod pulm HTN RVSP 47 mmHg.) EKG: Image Reviewed (11/09: RSR @ 86, no ST or T-wave aberration, no acute process (My Read).) Problem List - Problems (1) Acute on chronic respiratory failure with hypoxia and hypercapnia Code(s): J96.21 - ACUTE AND CHRONIC RESPIRATORY FAILURE WITH HYPOXIA; J96.22 - ACUTE AND CHRONIC RESPIRATORY FAILURE WITH HYPERCAPNIA (2) Closed fracture of lumbar vertebral body Code(s): S32.009A - UNSP FRACTURE OF UNSP LUMBAR VERTEBRA, INIT FOR CLOS FX (3) Compression fracture of lumbar vertebra Code(s): S32.000A - WEDGE COMPRESSION FRACTURE OF UNSP LUMBAR VERTEBRA, INIT Qualifiers: Lumbar vertebra fracture level: L1 Fracture type: closed (4) Acute renal failure Code(s): N17.9 - ACUTE KIDNEY FAILURE, UNSPECIFIED (5) Anemia Code(s): D64.9 - ANEMIA, UNSPECIFIED Qualifiers: Anemia type: due to chronic kidney disease Chronic kidney disease stage: stage 2 (mild) Qualified Code(s): N18.2 - Chronic kidney disease, stage 2 ( mild); D63.1 - Anemia in chronic kidney disease; D63.1 - Anemia in chronic kidney disease (6) Anxiety Code(s): F41.9 - ANXIETY DISORDER, UNSPECIFIED (7) COPD (chronic obstructive pulmonary disease) Code(s): J44.9 - CHRONIC OBSTRUCTIVE PULMONARY DISEASE, UNSPECIFIED Qualifiers: COPD type: unspecified COPD Qualified Code(s): J44.9 - Chronic obstructive pulmonary disease, unspecified (8) Myeloproliferative disorder Code(s): D47.1 - CHRONIC MYELOPROLIFERATIVE DISEASE Assessment/Plan ASSESS: -Steroid and home O2 dependent COPD -Acute on chronic hypercapneic, hypoxic respiratory fail in the setting of RLL PNA -PSVT->SR -MPD -Acute on CKD renal Fail -Nausea and emesis referable to narcotics -L1 compression fracture PLAN: -NPO -Zofran -Bipap to maintain saO2>90%, -Nebs -CPT -IS -steroids -Unasyn -IVFs -Monitor UOP -Trend BUN/Cr -Replete e-lytes prn -U-Lytes --> Calculate FeNa -Renal US -RENAL -Lidocaine patch to lumbar spine -TLSO brace -Cont MPD meds -Agressive BR -SQH -Pepcid -GOC DGL, ACNP-BC [facility] ICU PULM/CCM
[2017-11-09] MEDS ORDERED: LACTATED RINGERS SOLUTION 1,000 ML/1,000 ML INFUS.BAG IV STA (21:11)
[2017-11-09 21:21] LABS: ALBUMIN 3.4 g/dl (3.4-5.0); ANION GAP 17 (8-16); BILIRUBIN,TOTAL 0.7 mg/dL (0.2-1.0); BLOOD UREA NITROGEN 91 mg/dL (7-18); CALCIUM 8.7 mg/dL (8.5-10.1); CHLORIDE 94 mmol/L (98-107); CO2 27 mmol/L (21-32); GLUCOSE,RANDOM 117 mg/dL (74-106); POTASSIUM 5.8 mmol/L (3.5-5.1); SGOT/AST 15 U/L (15-37); SGPT/ALT 22 U/L (12-78); SODIUM 138 mmol/L (136-145); TOT PROT 6.5 g/dl (6.4-8.2)
[2017-11-09 21:33] LABS: ALK PHOS 94 U/L (45-117)
[2017-11-09 21:39] LABS: WHITE BLOOD COUNT 37.3 K/mm3 (4.0-10.0)
[2017-11-09 23:27] LABS: PLATELET ESTIMATE SIGNIFICANT INCREASE
[2017-11-09 23:29] LABS: ANISOCYTOSIS 1+; MACROCYTOSIS 1+
[2017-11-10] MEDS: METOCLOPRAMIDE HCL INJECTION 10 MG/2 ML VIAL IVPUSH SCH ×5 (00:49→21:47)
[2017-11-10] MEDS: ALBUTEROL SO4 0.083% IH SOL 2.5 MG/3 ML VIAL.NEB. NEB PRN (00:59)
[2017-11-10] MEDS: ONDANSETRON 4 MG/2 ML VIAL IVPB PRN (03:31)
[2017-11-10] MEDS ORDERED: ALPRAZolam 0.25 MG TABLET PO ONE ×2 (05:46→06:15)
[2017-11-10 05:51] LABS: ARTERIAL BLD GAS O2 SATURATION 95.9 % (90-98.9); ARTERIAL BLOOD GAS BASE EXCESS 3.8 meq/l (-2-2); ARTERIAL BLOOD GAS PCO2 53.4 mmHg (35-45); ARTERIAL BLOOD GAS PO2 82.7 mmHg (80-100); ARTERIAL BLOOD GAS pH 7.37 (7.35-7.45)
[2017-11-10 05:55] LABS: ALLENS TEST POSITIVE
[2017-11-10 06:05] LABS: BASO % 0.2 % (0-2.0); EOS % 0.1 % (0-4.5); HEMATOCRIT 45.6 % (32.4-45.2); HEMOGLOBIN 14.3 GM/dL (10.7-15.3); MCH 26.6 pg (25.7-33.7); MCHC 31.4 g/dl (32.0-36.0); MEAN CELL VOLUME 84.8 fl (80-96); MEAN PLT VOLUME 10.5 fl (7.5-11.1); MONO % 1.8 % (3.8-10.2); NEUT % 96.9 % (42.8-82.8); PLATELET COUNT 898 K/MM3 (134-434); RBC 5.38 M/mm3 (3.60-5.2); RDW 18.6 % (11.6-15.6)
[2017-11-10] MEDS: HEPARIN NA (PORCINE) 5,000 UNITS/ML 1ML VIAL SQ SCH ×4 (06:05→21:47)
[2017-11-10 06:23] LABS: WHITE BLOOD COUNT 35.2 K/mm3 (4.0-10.0)
[2017-11-10 06:40] LABS: ANION GAP 14 (8-16); BLOOD UREA NITROGEN 101 mg/dL (7-18); CALCIUM 8.7 mg/dL (8.5-10.1); CHLORIDE 93 mmol/L (98-107); CO2 28 mmol/L (21-32); CREATININE 3.6 mg/dL (0.55-1.02); GLUCOSE,RANDOM 104 mg/dL (74-106); SODIUM 135 mmol/L (136-145)
[2017-11-10 07:21] LABS: POTASSIUM 6.2 mmol/L (3.5-5.1)
[2017-11-10] MEDS ORDERED: ALBUTEROL SO4 0.083% IH SOL 2.5 MG/3 ML VIAL.NEB. NEB ONE (07:23)
[2017-11-10] MEDS ORDERED: DEXTROSE 50%-WATER - 25 GM/50 ML VIAL IVPUSH ONE (07:23)
[2017-11-10] MEDS ORDERED: DEXTROSE 50%-WATER 25 GM/50 ML DISP.SYRIN ONE (07:41)
--- NOTE | 2017-11-10 08:26 | PN ---
Progress Note (short form) - Note Progress Note: S: Vomitting bile. Complains of nausea. No evidence of obstruction on x-ray O: Vital Signs Period Temp Pulse Resp BP Sys/Pal[place]ios Pulse Ox Last 24 Hr 97.9 F-99.8 F 95-129 18-25 112-150/64-101 93-97 Tele - JENNIFER GEN: AAOx3, NAD, Lying comfortably HEENT: PERRL, EOMi CV: S1, S2, RRR LUNG: CTABL ABD: Hard, nontender, distended NEURO: CN 2-12 grossly intact A/P: 66yo F with End stage COPD admitted for back pain 2/2 L1 compression fracture. Transferred to ICU after RR called on 11/09 for PSVT to 130s. # L1 vertebral compression fracture -- Could be steroid induced. Conservative mgmt. for now w/ patches and PT. # Suspected opioid induced ileus -- NGT placed, drained +2500cc of bilious vomitting. Improvement in distension. No air fluid levels on abd-xr. Continue NGT. Replace fluids w/ D5NS. GI consulted. # Acute Hypoxic RF 2/2 suspected aspiration PNA -- Aspiration pna likely from emesis. On Unasyn 1.5 BID. Was on BiPAP, now doing well on nasal cannula. # SVT -- Could have been induced by dehydration vs aspiration pneumonia leading to septic picture. IV Lopressor prn for tachy. Watch for bronchospasm # COPD -- Not in exacerbation. Home 3l nc. 15mg prednisone daily. # Myeloproliferative disorder -- Has thrombocytosis. Leukocytosis at baseline. Continue home meds # FEN/PPx -- D5NS at 125cc/hr to replace bile, NPO, HSQ TID # Dispo -- Keep in ICU.
[2017-11-10] MEDS ORDERED: SODIUM BICARBONATE 8.4% 50 MEQ/50 ML DISP.SYRIN IVPUSH ONE (08:30)
[2017-11-10] MEDS ORDERED: INSULIN REGULAR HUMAN 100 UNITS/ML *VIAL IVPUSH ONE (08:30)
[2017-11-10] MEDS ORDERED: METOPROLOL TARTRATE 5 MG/5 ML VIAL IVPUSH PRN (08:34)
[2017-11-10] MEDS ORDERED: LORazepam 2 MG/ML SDV VIAL ONE ×2 (09:08→22:18)
[2017-11-10 09:15] LABS: ANISOCYTOSIS 1+; PLATELET ESTIMATE INCREASED; TEAR DROP CELLS 1+
--- NOTE | 2017-11-10 09:38 | EKG ---
Test Reason : Blood Pressure : / mmHG Vent. Rate : 129 BPM Atrial Rate : 046 BPM P-R Int : 000 ms QRS Dur : 066 ms QT Int : 334 ms P-R-T Axes : 000 086 063 degrees QTc Int : 489 ms SUPRAVENTRICULAR TACHYCARDIA SEPTAL INFARCT (CITED ON OR BEFORE 23-JUN-2017) INFERIOR INFARCT , AGE UNDETERMINED ABNORMAL ECG Confirmed by SHAGUFTA TOLEDO MD ([id number]) on 11/10/2017 9:38:21 AM Referred By: JUNITO AVILA DR Confirmed By:SHAGUFTA TOLEDO MD
[2017-11-10] MEDS: TIOTROPIUM BROMIDE 18 MCG CAPSULES IH SCH (10:00)
[2017-11-10] MEDS ORDERED: PT OWN MED DRAWER 7, Y5N ONE ×4 (10:32→23:45)
[2017-11-10] MEDS ORDERED: DEXTROSE 5%-0.45% SALINE 1,000 ML IV SCH (10:45)
[2017-11-10] MEDS ORDERED: SODIUM CHLORIDE 1,000 ML IV SCH (10:45)
[2017-11-10] MEDS: AMPICILLIN NA/SULBACTAM NA 1.5 GM in SODIUM CHLORIDE 100 ML IVPB SCH ×2 (11:00→21:47)
[2017-11-10] MEDS ORDERED: DEXTROSE 5%-NORMAL SALINE 1,000 ML IV SCH ×2 (11:00→23:15)
--- NOTE | 2017-11-10 11:01 | PN ---
Teaching Attending Note Name of Resident: Fina Madrid ATTENDING PHYSICIAN STATEMENT I saw and evaluated the patient. I reviewed the resident's note and discussed the case with the resident. I agree with the resident's findings and plan as documented. SUBJECTIVE: Patient seen and examined in the ICU. Uncomfortable due to abdominal pain. NGT inserted, 1600 cc of gastric contents. (+) SOB due to abdominal symptoms. Intake & Output 11/07/17 11/08/17 11/09/17 11/10/17 23:59 23:59 23:59 23:59 Intake Total 450 1050 1310 780 Output Total 370 501 600 Balance 80 1050 809 180 Weight 121 lb 1.6 oz Last Vital Signs Temp Pulse Resp BP Pulse Ox 99 F 115 H 19 112/73 97 11/10/17 08:57 11/10/17 10:54 11/10/17 10:54 11/10/17 10:54 11/10/17 02:35 Active Medications Acetaminophen (Tylenol -) 650 mg PO Q6H PRN PRN Reason: FEVER Acetaminophen (Ofirmev Injection -) 1,000 mg IVPB Q6H PRN PRN Reason: PAIN LEVEL 6-10 Albuterol Sulfate (Ventolin 0.083% Nebulizer Soln -) 1 amp NEB Q4H PRN PRN Reason: SHORT OF BREATH/WHEEZING Last Admin: 11/10/17 00:59 Dose: 1 amp Heparin Sodium (Porcine) (Heparin -) 5,000 unit SQ TID RANDI Last Admin: 11/10/17 06:05 Dose: 5,000 unit Ampicillin Sodium/Sulbactam (Sodium 1.5 gm/ Sodium Chloride) 100 mls @ 200 mls/ hr IVPB BID RANDI Last Admin: 11/09/17 17:34 Dose: 200 mls/hr Dextrose/Sodium Chloride (D5-Ns -) 1,000 mls @ 125 mls/hr IV ASDIR RANDI Lorazepam (Ativan Injection -) 0.5 mg IVPUSH Q6H PRN PRN Reason: ANXIETY Last Admin: 11/10/17 09:17 Dose: 0.5 mg Metoclopramide HCl (Reglan Injection -) 10 mg IVPUSH Q6H-IV RANDI Last Admin: 11/10/17 02:49 Dose: 10 mg Metoprolol Tartrate (Lopressor Injection -) 5 mg IVPUSH Q4H PRN PRN Reason: TACHYCARDIA Miscellaneous (Lidoderm Patch Removal) 1 each MC DAILY@2200 [facility] Last Admin: 11/09/17 19:00 Dose: 1 each Miscellaneous (Duragesic Patch Waste) 1 each TD PRN PRN PRN Reason: PAIN Last Admin: 11/08/17 20:10 Dose: 1 each Ondansetron HCl (Zofran Injection) 4 mg IVPB Q4H PRN PRN Reason: NAUSEA AND/OR VOMITING Last Admin: 11/10/17 03:31 Dose: 4 mg Prochlorperazine Edisylate (Compazine Injection -) 2.5 mg IVPB Q3H PRN PRN Reason: NAUSEA AND/OR VOMITING Tiotropium [place] (Spiriva -) 1 puff IH DAILY [facility] Last Admin: 11/09/17 13:24 Dose: Not Given Constitutional: Yes: Anxious, Cachectic, Thin, SOB Eyes: Yes: WNL, Conjunctiva Clear HENT: Yes: WNL, Atraumatic, Normocephalic Neck: Yes: WNL, Supple, Thyromegaly Cardiovascular: Yes: WNL, Regular Rate and Rhythm Respiratory: Yes: Accessory Muscle Use, Diminished, Hyperresonant, On Venti-Mask Gastrointestinal: Yes: Distention, Firm, hypoactive BS ...Rectal Exam: Yes: Deferred Renal/: Yes: Oliguria Breast(s): Yes: WNL Musculoskeletal: Yes: Back Pain Extremities: Yes: WNL Edema: No Peripheral Pulses WNL: Yes Neurological: Yes: Confusion ...Motor Strength: WNL Psychiatric: Yes: WNL, Alert Labs: Laboratory Results - last 24 hr 11/09/17 11/09/17 11/09/17 08:04 11:35 13:20 WBC RBC Hgb Hct MCV MCH MCHC RDW Plt Count MPV Absolute Neuts (auto) Total Counted Neutrophils % Neutrophils % (Manual) 91.0 H Band Neutrophils % 9.0 Lymphocytes % Lymphocytes % (Manual) 0.0 L Monocytes % Monocytes % (Manual) 0 L D Eosinophils % Eosinophils % (Manual) 0.0 D Basophils % Basophils % (Manual) 0.0 Myelocytes % (Man) 0 Promyelocytes % (Man) 0 Blast Cells % (Manual) 0 Nucleated RBC % 0 Metamyelocytes 0 Hypochromia 1+ Platelet Estimate Increased Platelet Comment Present Polychromasia 1+ Anisocytosis 1+ Microcytosis 1+ Macrocytosis 1+ Tear Drop Cells Ovalocytes 1+ Anticoagulation Therapy Puncture Site ABG pH ABG pCO2 at Pt Temp ABG pO2 at Pt Temp ABG HCO3 ABG O2 Sat (Measured) ABG O2 Content ABG Base Excess Hemanth Test O2 Delivery Device Oxygen Flow Rate Vent Mode Vent Rate Mechanical Rate PEEP Pressure Support Vent Sodium 137 Potassium 5.5 H Plasma Potassium 4.8 Chloride 95 L Carbon Dioxide 29 Anion Gap 13 BUN 75 H Creatinine 2.2 H Creat Clearance w eGFR Random Glucose 100 Lactic Acid Calcium 9.3 Magnesium 2.3 Total Bilirubin AST ALT Alkaline Phosphatase Ammonia Creatine Kinase 42 Troponin I < 0.02 Total Protein Albumin Urine Color Urine Appearance Urine pH Ur Specific [place] Urine Protein Urine Glucose (UA) Urine Ketones Urine Blood Urine Nitrite Urine Bilirubin Urine Urobilinogen Ur Leukocyte Esterase Urine WBC (Auto) Urine RBC (Auto) Ur Epithelial Cells Urine Mucus Ur Random Sodium Ur Random Potassium Ur Random Chloride Urine Creatinine 11/09/17 11/09/17 11/09/17 15:00 15:00 15:00 WBC RBC Hgb Hct MCV MCH MCHC RDW Plt Count MPV Absolute Neuts (auto) Total Counted Neutrophils % Neutrophils % (Manual) Band Neutrophils % Lymphocytes % Lymphocytes % (Manual) Monocytes % Monocytes % (Manual) Eosinophils % Eosinophils % (Manual) Basophils % Basophils % (Manual) Myelocytes % (Man) Promyelocytes % (Man) Blast Cells % (Manual) Nucleated RBC % Metamyelocytes Hypochromia Platelet Estimate Platelet Comment Polychromasia Anisocytosis Microcytosis Macrocytosis Tear Drop Cells Ovalocytes Anticoagulation Therapy Puncture Site ABG pH ABG pCO2 at Pt Temp ABG pO2 at Pt Temp ABG HCO3 ABG O2 Sat (Measured) ABG O2 Content ABG Base Excess Hemanth Test O2 Delivery Device Oxygen Flow Rate Vent Mode Vent Rate Mechanical Rate PEEP Pressure Support Vent Sodium Potassium Plasma Potassium Chloride Carbon Dioxide Anion Gap BUN Creatinine Creat Clearance w eGFR Random Glucose Lactic Acid Calcium Magnesium Total Bilirubin AST ALT Alkaline Phosphatase Ammonia Creatine Kinase Troponin I Total Protein Albumin Urine Color Dkyellow Urine Appearance Slcloudy Urine pH 5.0 Ur Specific [place] 1.018 Urine Protein 2+ H Urine Glucose (UA) Negative Urine Ketones Negative Urine Blood Negative Urine Nitrite Negative Urine Bilirubin Negative Urine Urobilinogen Negative Ur Leukocyte Esterase Negative Urine WBC (Auto) 1 Urine RBC (Auto) 1 Ur Epithelial Cells Rare Urine Mucus Rare Ur Random Sodium 18 Ur Random Potassium 71.7 Ur Random Chloride 31 Urine Creatinine 117.0 11/09/17 11/09/17 11/09/17 16:40 20:20 20:20 WBC 37.3 H* D RBC 5.40 H Hgb 14.0 Hct 46.3 H MCV 85.7 MCH 25.9 MCHC 30.3 L RDW 18.2 H Plt Count 951 H D MPV 10.5 D Absolute Neuts (auto) 36.1 Total Counted 100 Neutrophils % 96.7 H Neutrophils % (Manual) 83.0 H Band Neutrophils % 12.0 Lymphocytes % 0.6 L Lymphocytes % (Manual) 1.0 L D Monocytes % 2.3 L Monocytes % (Manual) 4 D Eosinophils % 0.1 Eosinophils % (Manual) Basophils % 0.3 Basophils % (Manual) Myelocytes % (Man) Promyelocytes % (Man) Blast Cells % (Manual) Nucleated RBC % 0 Metamyelocytes Hypochromia 1+ Platelet Estimate Significant increase Platelet Comment No clumping noted Polychromasia 1+ Anisocytosis 1+ Microcytosis 1+ Macrocytosis 1+ Tear Drop Cells Ovalocytes Anticoagulation Therapy No Result Required. Puncture Site Right radial ABG pH 7.29 L ABG pCO2 at Pt Temp 56.9 H ABG pO2 at Pt Temp 67.9 L ABG HCO3 26.5 H ABG O2 Sat (Measured) 91.8 ABG O2 Content 18.4 ABG Base Excess -0.8 Hemanth Test Positive O2 Delivery Device Venti mask Oxygen Flow Rate 40% Vent Mode No Result Required. Vent Rate No Result Required. Mechanical Rate No Result Required. PEEP Pressure Support Vent No Result Required. Sodium 138 Potassium 5.8 H Plasma Potassium Chloride 94 L Carbon Dioxide 27 Anion Gap 17 H BUN 91 H Creatinine 3.0 H Creat Clearance w eGFR 15.57 Random Glucose 117 H Lactic Acid Calcium 8.7 Magnesium Total Bilirubin 0.7 AST 15 ALT 22 Alkaline Phosphatase 94 Ammonia Creatine Kinase 34 Troponin I 0.04 Total Protein 6.5 Albumin 3.4 Urine Color Urine Appearance Urine pH Ur Specific [place] Urine Protein Urine Glucose (UA) Urine Ketones Urine Blood Urine Nitrite Urine Bilirubin Urine Urobilinogen Ur Leukocyte Esterase Urine WBC (Auto) Urine RBC (Auto) Ur Epithelial Cells Urine Mucus Ur Random Sodium Ur Random Potassium Ur Random Chloride Urine Creatinine 11/09/17 11/09/17 11/10/17 20:20 20:20 05:10 WBC RBC Hgb Hct MCV MCH MCHC RDW Plt Count MPV Absolute Neuts (auto) Total Counted Neutrophils % Neutrophils % (Manual) Band Neutrophils % Lymphocytes % Lymphocytes % (Manual) Monocytes % Monocytes % (Manual) Eosinophils % Eosinophils % (Manual) Basophils % Basophils % (Manual) Myelocytes % (Man) Promyelocytes % (Man) Blast Cells % (Manual) Nucleated RBC % Metamyelocytes Hypochromia Platelet Estimate Platelet Comment Polychromasia Anisocytosis Microcytosis Macrocytosis Tear Drop Cells Ovalocytes Anticoagulation Therapy No Result Required. Puncture Site Left radial ABG pH 7.37 ABG pCO2 at Pt Temp 53.4 H ABG pO2 at Pt Temp 82.7 D ABG HCO3 30.0 H ABG O2 Sat (Measured) 95.9 ABG O2 Content 19.6 ABG Base Excess 3.8 H Hemanth Test Positive O2 Delivery Device Bipap Oxygen Flow Rate 40% Vent Mode No Result Required. Vent Rate Mechanical Rate No Result Required. PEEP 5.0 Pressure Support Vent Sodium Potassium Plasma Potassium Chloride Carbon Dioxide Anion Gap BUN Creatinine Creat Clearance w eGFR Random Glucose Lactic Acid 1.2 Calcium Magnesium Total Bilirubin AST ALT Alkaline Phosphatase Ammonia 18.9 Creatine Kinase Troponin I Total Protein Albumin Urine Color Urine Appearance Urine pH Ur Specific [place] Urine Protein Urine Glucose (UA) Urine Ketones Urine Blood Urine Nitrite Urine Bilirubin Urine Urobilinogen Ur Leukocyte Esterase Urine WBC (Auto) Urine RBC (Auto) Ur Epithelial Cells Urine Mucus Ur Random Sodium Ur Random Potassium Ur Random Chloride Urine Creatinine 11/10/17 11/10/17 05:50 05:50 WBC 35.2 H* RBC 5.38 H Hgb 14.3 Hct 45.6 H MCV 84.8 MCH 26.6 MCHC 31.4 L RDW 18.6 H Plt Count 898 H MPV 10.5 Absolute Neuts (auto) 34.1 Total Counted Neutrophils % 96.9 H Neutrophils % (Manual) 85.7 H Band Neutrophils % 10.2 Lymphocytes % 1.0 L D Lymphocytes % (Manual) 0.0 L Monocytes % 1.8 L Monocytes % (Manual) 4 Eosinophils % 0.1 Eosinophils % (Manual) 0.0 Basophils % 0.2 Basophils % (Manual) 0.0 Myelocytes % (Man) 0 Promyelocytes % (Man) 0 Blast Cells % (Manual) 0 Nucleated RBC % 0 Metamyelocytes 0 Hypochromia Platelet Estimate Increased Platelet Comment Polychromasia 2+ Anisocytosis 1+ Microcytosis 2+ Macrocytosis Tear Drop Cells 1+ Ovalocytes Anticoagulation Therapy Puncture Site ABG pH ABG pCO2 at Pt Temp ABG pO2 at Pt Temp ABG HCO3 ABG O2 Sat (Measured) ABG O2 Content ABG Base Excess Hemanth Test O2 Delivery Device Oxygen Flow Rate Vent Mode Vent Rate Mechanical Rate PEEP Pressure Support Vent Sodium 135 L Potassium 6.2 H* Plasma Potassium Chloride 93 L Carbon Dioxide 28 Anion Gap 14 BUN 101 H Creatinine 3.6 H Creat Clearance w eGFR Random Glucose 104 Lactic Acid Calcium 8.7 Magnesium Total Bilirubin AST ALT Alkaline Phosphatase Ammonia Creatine Kinase Troponin I Total Protein Albumin Urine Color Urine Appearance Urine pH Ur Specific [place] Urine Protein Urine Glucose (UA) Urine Ketones Urine Blood Urine Nitrite Urine Bilirubin Urine Urobilinogen Ur Leukocyte Esterase Urine WBC (Auto) Urine RBC (Auto) Ur Epithelial Cells Urine Mucus Ur Random Sodium Ur Random Potassium Ur Random Chloride Urine Creatinine Problem List - Problems (1) Acute on chronic respiratory failure with hypoxia and hypercapnia Code(s): J96.21 - ACUTE AND CHRONIC RESPIRATORY FAILURE WITH HYPOXIA; J96.22 - ACUTE AND CHRONIC RESPIRATORY FAILURE WITH HYPERCAPNIA (2) Closed fracture of lumbar vertebral body Code(s): S32.009A - UNSP FRACTURE OF UNSP LUMBAR VERTEBRA, INIT FOR CLOS FX (3) Compression fracture of lumbar vertebra Code(s): S32.000A - WEDGE COMPRESSION FRACTURE OF UNSP LUMBAR VERTEBRA, INIT Qualifiers: Lumbar vertebra fracture level: L1 Fracture type: closed (4) Acute renal failure Code(s): N17.9 - ACUTE KIDNEY FAILURE, UNSPECIFIED (5) Anemia Code(s): D64.9 - ANEMIA, UNSPECIFIED Qualifiers: Anemia type: due to chronic kidney disease Chronic kidney disease stage: stage 2 (mild) Qualified Code(s): N18.2 - Chronic kidney disease, stage 2 ( mild); D63.1 - Anemia in chronic kidney disease; D63.1 - Anemia in chronic kidney disease (6) Anxiety Code(s): F41.9 - ANXIETY DISORDER, UNSPECIFIED (7) COPD (chronic obstructive pulmonary disease) Code(s): J44.9 - CHRONIC OBSTRUCTIVE PULMONARY DISEASE, UNSPECIFIED Qualifiers: COPD type: unspecified COPD Qualified Code(s): J44.9 - Chronic obstructive pulmonary disease, unspecified (8) Myeloproliferative disorder Code(s): D47.1 - CHRONIC MYELOPROLIFERATIVE DISEASE Assessment/Plan ASSESS: -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
--- NOTE | 2017-11-10 11:04 | PN ---
Progress Note, Physician History of Present Illness: Weaned to NC, abd distended, NGT inserted with 1600 cc volume. Tachycardia improved. - Current Medication List Current Medications: Active Medications Acetaminophen (Tylenol -) 650 mg PO Q6H PRN PRN Reason: FEVER Acetaminophen (Ofirmev Injection -) 1,000 mg IVPB Q6H PRN PRN Reason: PAIN LEVEL 6-10 Albuterol Sulfate (Ventolin 0.083% Nebulizer Soln -) 1 amp NEB Q4H PRN PRN Reason: SHORT OF BREATH/WHEEZING Last Admin: 11/10/17 00:59 Dose: 1 amp Heparin Sodium (Porcine) (Heparin -) 5,000 unit SQ TID [facility] Last Admin: 11/10/17 06:05 Dose: 5,000 unit Ampicillin Sodium/Sulbactam (Sodium 1.5 gm/ Sodium Chloride) 100 mls @ 200 mls/ hr IVPB BID [facility] Last Admin: 11/09/17 17:34 Dose: 200 mls/hr Dextrose/Sodium Chloride (D5-Ns -) 1,000 mls @ 125 mls/hr IV ASDIR RANDI Lorazepam (Ativan Injection -) 0.5 mg IVPUSH Q6H PRN PRN Reason: ANXIETY Last Admin: 11/10/17 09:17 Dose: 0.5 mg Metoclopramide HCl (Reglan Injection -) 10 mg IVPUSH Q6H-IV RANDI Last Admin: 11/10/17 02:49 Dose: 10 mg Metoprolol Tartrate (Lopressor Injection -) 5 mg IVPUSH Q4H PRN PRN Reason: TACHYCARDIA Miscellaneous (Lidoderm Patch Removal) 1 each MC DAILY@2200 [facility] Last Admin: 11/09/17 19:00 Dose: 1 each Miscellaneous (Duragesic Patch Waste) 1 each TD PRN PRN PRN Reason: PAIN Last Admin: 11/08/17 20:10 Dose: 1 each Ondansetron HCl (Zofran Injection) 4 mg IVPB Q4H PRN PRN Reason: NAUSEA AND/OR VOMITING Last Admin: 11/10/17 03:31 Dose: 4 mg Prochlorperazine Edisylate (Compazine Injection -) 2.5 mg IVPB Q3H PRN PRN Reason: NAUSEA AND/OR VOMITING Tiotropium [place] (Spiriva -) 1 puff IH DAILY [facility] Last Admin: 11/09/17 13:24 Dose: Not Given - Objective Vital Signs: Vital Signs Temperature 99 F 11/10/17 08:57 Pulse Rate 115 H 11/10/17 10:54 Respiratory Rate 19 11/10/17 10:54 Blood Pressure 112/73 11/10/17 10:54 O2 Sat by Pulse Oximetry (%) 97 11/10/17 02:35 Constitutional: Yes: Mild Distress, Thin Neck: Yes: Supple Cardiovascular: Yes: Tachycardia Respiratory: Yes: Regular, Diminished, On Nasal O2 Gastrointestinal: Yes: Distention, Hyperactive Bowel Sounds Edema: No Labs: CBC, BMP 11/10/17 05:50 11/10/17 05:50 - ....Imaging Ultrasound: Report Reviewed (Medical renal disease) EKG: Report Reviewed (EKG: SVT) Problem List - Problems (1) [id number] kidney injury Code(s): N17.9 - ACUTE KIDNEY FAILURE, UNSPECIFIED; N18.9 - CHRONIC KIDNEY DISEASE, UNSPECIFIED Qualifiers: Acute renal failure type: unspecified (2) Paroxysmal supraventricular tachycardia Code(s): I47.1 - SUPRAVENTRICULAR TACHYCARDIA (3) Acute on chronic respiratory failure with hypoxia and hypercapnia Code(s): J96.21 - ACUTE AND CHRONIC RESPIRATORY FAILURE WITH HYPOXIA; J96.22 - ACUTE AND CHRONIC RESPIRATORY FAILURE WITH HYPERCAPNIA (4) Closed fracture of lumbar vertebral body Code(s): S32.009A - UNSP FRACTURE OF UNSP LUMBAR VERTEBRA, INIT FOR CLOS FX (5) COPD (chronic obstructive pulmonary disease) Code(s): J44.9 - CHRONIC OBSTRUCTIVE PULMONARY DISEASE, UNSPECIFIED Qualifiers: COPD type: unspecified COPD Qualified Code(s): J44.9 - Chronic obstructive pulmonary disease, unspecified (6) Myeloproliferative disorder Code(s): D47.1 - CHRONIC MYELOPROLIFERATIVE DISEASE (7) Hyperkalemia Code(s): E87.5 - HYPERKALEMIA (8) Ileus Code(s): K56.7 - ILEUS, UNSPECIFIED Assessment/Plan Echo: Jun 20, 2017 Normal LV size with hyperdynamic LV fxn, tr MR, TR mod pulm HTN RVSP 47 mmHg 1. PSVT->SR 2. Acute on chronic hypercapneic, hypoxic respiratory failure, RLL PNA possible aspiration 3. Steroid and home-O2 dependent COPD 4. Myeloproliferative disorder 5. Acute on CKD with hyperkalemia 6. Nausea and emesis referable to narcotics, r/o ileus 7. L1 compression fracture PLAN: 1. Wean O2 to maintain saO2>90%, BD, steroids, abx coverage for presumed asp pna , hydration with monitor renal fxn 2. IV Lopressor as needed (observe for bronchospasm, tolerated first dose) 3. F/u obstructive series, avoid narcotics 4. DVT prophylaxis
[2017-11-10 13:22] LABS: POTASSIUM 5.2 mmol/L (3.5-5.1)
--- NOTE | 2017-11-10 13:36 | CON.GI ---
Consult Consult Specialty:: GI Reason for Consultation:: abdominal distension - History of Present Illness History of Present Illness: Chart reviewed. Acute event noted. Prior admissions and colonoscopies/flex sigs reviewed. GI was called for evaluation of distended abdomen, dilated small bowel loops on abd xray and 3 L of bile-colored liquid aspirated via NGT this am. The pt is in the ICU with end stage COPD, renal insufficiency, and arrhythmia. Takes opiates for back pain and linzess for chronic constipation. 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 No BMs recorder/documented since the admission on 11/06. - History Source History Provided By: Patient, Medical Record, Caregiver - Past Medical History Cardio/Vascular: Yes: HTN Pulmonary: Yes: COPD Gastrointestinal: Yes: Constipation, Other (ADRENAL ADENOMA, SEVERE DIVERTICULOSIS AND DIVERTICULITIS) Hepatobiliary: Yes: Other (HAD WORKUP FOR PORTAL HTN WHICH WAS NEGATIVE ( INCLUDED PORTAL PRESSURE MEASUREMENTS)) Renal/: Yes: Renal Inusuff Psych: Yes: Anxiety - Past Surgical History Past Surgical History: Yes: Colonoscopy, Upper Endoscopy - Alcohol/Substance Use Hx Alcohol Use: No History of Substance Use: reports: None - Smoking History Smoking history: Former smoker Have you smoked in the past 12 months: No Aproximately how many cigarettes per day: 0 If you are a former smoker, when did you quit?: 2010 - Social History Usual Living Arrangement: Alone (lives alone in house with 2 steps to enter and 12 inside; previously Independent in ADLs without AD) ADL: Independent History of Recent Travel: No Home Medications - Allergies Allergies/Adverse Reactions: Allergies Allergy/AdvReac Type Severity Reaction Status Date / Time Sulfa (Sulfonamide Allergy Severe Rash Verified 11/06/17 10:08 Antibiotics) - Home Medications Home Medications: Ambulatory Orders Albuterol Sulfate [Proair Hfa -] 1 - 2 inh PO PRN PRN 01/28/14 Alprazolam [Xanax] 0.25 mg PO PRN PRN 07/21/16 Anagrelide HCl [Agrylin -] 0.5 mg PO TID 11/14/16 Linaclotide [Linzess] 72 mcg PO Q2D 02/06/17 Albuterol 0.083% Nebulizer Chika [Ventolin 0.083% Nebulizer Soln -] 1 amp NEB Q4H PRN amp 06/24/17 Aspirin [ASA -] 81 mg PO DAILY tab.chew 06/24/17 Hydroxyurea [Hydrea 500Mg Capsule -] 500 mg PO MoWeFr@1000 capsule 06/24/17 Allopurinol [Zyloprim -] 200 mg PO DAILY 10/25/17 Roflumilast [Daliresp -] 500 mcg PO Q2D 10/25/17 Tiotropium [place] [Spiriva] 1 inh IH DAILY 10/25/17 traZODone HCL [Desyrel -] 100 mg PO HS 10/25/17 Oxycodone HCl/Acetaminophen [Percocet 5-325 mg Tablet] 1 - 2 tab PO Q6H PRN #20 tab MDD 8 tabs 10/31/17 Prednisone [Deltasone] 20 mg PO DAILY 11/08/17 Family Disease History - Family Disease History Family History: Unremarkable Review of Systems Findings/Remarks: as per H&P, HPI, ED Physical Exam-GI Vital Signs: Vital Signs Temperature 98.4 F 11/10/17 12:21 Pulse Rate 116 H 11/10/17 12:11 Respiratory Rate 19 11/10/17 12:11 Blood Pressure 120/76 11/10/17 12:11 O2 Sat by Pulse Oximetry (%) 94 L 11/10/17 12:20 Constitutional: Yes: Calm Eyes: Yes: Conjunctiva Clear. No: Sclera Icterus HENT: Yes: Atraumatic Cardiovascular: Yes: Bradycardia, Tachycardia Respiratory: Yes: Poor Air Entry Gastrointestinal Inspection: Yes: Distention ...Auscultate: Yes: No Bowel Sounds ...Palpate: Yes: Guarding, Tenderness ...Percussion: Yes: Tympanitic Neurological: Yes: Alert Labs: CBC, BMP 11/10/17 05:50 Laboratory Last Values WBC 35.2 K/mm3 (4.0-10.0) H* 11/10/17 05:50 RBC 5.38 M/mm3 (3.60-5.2) H 11/10/17 05:50 Hgb 14.3 GM/dL (10.7-15.3) 11/10/17 05:50 Hct 45.6 % (32.4-45.2) H 11/10/17 05:50 MCV 84.8 fl (80-96) 11/10/17 05:50 MCH 26.6 pg (25.7-33.7) 11/10/17 05:50 MCHC 31.4 g/dl (32.0-36.0) L 11/10/17 05:50 RDW 18.6 % (11.6-15.6) H 11/10/17 05:50 Plt Count 898 K/MM3 (134-434) H 11/10/17 05:50 MPV 10.5 fl (7.5-11.1) 11/10/17 05:50 Absolute Neuts (auto) 34.1 # 11/10/17 05:50 Total Counted 100 11/09/17 20:20 Neutrophils % 96.9 % (42.8-82.8) H 11/10/17 05:50 Neutrophils % (Manual) 85.7 % (42.8-82.8) H 11/10/17 05:50 Band Neutrophils % 10.2 % 11/10/17 05:50 Lymphocytes % 1.0 % (8-40) L D 11/10/17 05:50 Lymphocytes % (Manual) 0.0 % (8-40) L 11/10/17 05:50 Monocytes % 1.8 % (3.8-10.2) L 11/10/17 05:50 Monocytes % (Manual) 4 % (3.8-10.2) 11/10/17 05:50 Eosinophils % 0.1 % (0-4.5) 11/10/17 05:50 Eosinophils % (Manual) 0.0 % (0-4.5) 11/10/17 05:50 Basophils % 0.2 % (0-2.0) 11/10/17 05:50 Basophils % (Manual) 0.0 % (0-2.0) 11/10/17 05:50 Myelocytes % (Man) 0 % (0-2) 11/10/17 05:50 Promyelocytes % (Man) 0 % (0-2) 11/10/17 05:50 Blast Cells % (Manual) 0 % (0-0) 11/10/17 05:50 Nucleated RBC % 0 % (0-0) 11/10/17 05:50 Metamyelocytes 0 % (0-2) 11/10/17 05:50 Hypochromia 1+ 11/09/17 20:20 Platelet Estimate Increased 11/10/17 05:50 Platelet Comment No clumping noted 11/09/17 20:20 Polychromasia 2+ 11/10/17 05:50 Anisocytosis 1+ 11/10/17 05:50 Microcytosis 2+ 11/10/17 05:50 Macrocytosis 1+ 11/09/17 20:20 Tear Drop Cells 1+ 11/10/17 05:50 Ovalocytes 1+ 11/09/17 08:04 Anticoagulation Therapy No Result Required. 11/10/17 05:10 Puncture Site Left radial 11/10/17 05:10 ABG pH 7.37 (7.35-7.45) 11/10/17 05:10 ABG pCO2 at Pt Temp 53.4 mmHg (35-45) H 11/10/17 05:10 ABG pO2 at Pt Temp 82.7 mmHg (80-100) D 11/10/17 05:10 ABG HCO3 30.0 meq/L (22-26) H 11/10/17 05:10 ABG O2 Sat (Measured) 95.9 % (90-98.9) 11/10/17 05:10 ABG O2 Content 19.6 % vol (15-22) 11/10/17 05:10 ABG Base Excess 3.8 meq/l (-2-2) H 11/10/17 05:10 Hemanth Test Positive 11/10/17 05:10 O2 Delivery Device Bipap 11/10/17 05:10 Oxygen Flow Rate 40% 11/10/17 05:10 Vent Mode No Result Required. 11/10/17 05:10 Vent Rate No Result Required. 11/09/17 16:40 Mechanical Rate No Result Required. 11/10/17 05:10 PEEP 5.0 cmH2O 11/10/17 05:10 Pressure Support Vent No Result Required. 11/09/17 16:40 Sodium 135 mmol/L (136-145) L 11/10/17 05:50 Potassium 5.2 mmol/L (3.5-5.1) H 11/10/17 12:40 Plasma Potassium 4.9 mmol/L (3.5-5.1) 11/10/17 09:00 Chloride 93 mmol/L (98-107) L 11/10/17 05:50 Carbon Dioxide 28 mmol/L (21-32) 11/10/17 05:50 Anion Gap 14 (8-16) 11/10/17 05:50 BUN 101 mg/dL (7-18) H 11/10/17 05:50 Creatinine 3.6 mg/dL (0.55-1.02) H 11/10/17 05:50 Creat Clearance w eGFR 15.57 (>60) 11/09/17 20:20 Random Glucose 104 mg/dL (74-106) 11/10/17 05:50 Lactic Acid 1.2 mmol/L (0.0-2.0) 11/09/17 20:20 Calcium 8.7 mg/dL (8.5-10.1) 11/10/17 05:50 Magnesium 2.3 mg/dL (1.8-2.4) 11/09/17 11:35 Total Bilirubin 0.7 mg/dL (0.2-1.0) 11/09/17 20:20 AST 15 U/L (15-37) 11/09/17 20:20 ALT 22 U/L (12-78) 11/09/17 20:20 Alkaline Phosphatase 94 U/L (45-117) 11/09/17 20:20 Ammonia 18.9 umol/L (11-32) 11/09/17 20:20 Creatine Kinase 34 IU/L (26-192) 11/09/17 20:20 Troponin I 0.04 ng/ml (0.00-0.05) 11/09/17 20:20 Total Protein 6.5 g/dl (6.4-8.2) 11/09/17 20:20 Albumin 3.4 g/dl (3.4-5.0) 11/09/17 20:20 Urine Color Dkyellow 11/09/17 15:00 Urine Appearance Slcloudy 11/09/17 15:00 Urine pH 5.0 (5.0-8.0) 11/09/17 15:00 Ur Specific Joaquin 1.018 (1.001-1.035) 11/09/17 15:00 Urine Protein 2+ (NEGATIVE) H 11/09/17 15:00 Urine Glucose (UA) Negative (NEGATIVE) 11/09/17 15:00 Urine Ketones Negative (NEGATIVE) 11/09/17 15:00 Urine Blood Negative (NEGATIVE) 11/09/17 15:00 Urine Nitrite Negative (NEGATIVE) 11/09/17 15:00 Urine Bilirubin Negative (<2.0 mg/dL) 11/09/17 15:00 Urine Urobilinogen Negative mg/dL (0.2-1.0) 11/09/17 15:00 Ur Leukocyte Esterase Negative (NEGATIVE) 11/09/17 15:00 Urine WBC (Auto) 1 /hpf (3-5) 11/09/17 15:00 Urine RBC (Auto) 1 /hpf (0-3) 11/09/17 15:00 Ur Epithelial Cells Rare /HPF (FEW) 11/09/17 15:00 Urine Bacteria Rare /hpf (NONE SEEN) 11/07/17 06:15 Urine Mucus Rare 11/09/17 15:00 Ur Random Sodium 18 MMOL/L 11/09/17 15:00 Ur Random Potassium 71.7 MMOL/L 11/09/17 15:00 Ur Random Chloride 31 MMOL/L 11/09/17 15:00 Urine Creatinine 117.0 mg/dL (20-320) 11/09/17 15:00 Imaging - Results X-ray: Report Reviewed (dilated small bowel loops) Problem List - Problems (1) Ileus Code(s): K56.7 - ILEUS, UNSPECIFIED (2) Acute on chronic respiratory failure with hypoxia and hypercapnia Code(s): J96.21 - ACUTE AND CHRONIC RESPIRATORY FAILURE WITH HYPOXIA; J96.22 - ACUTE AND CHRONIC RESPIRATORY FAILURE WITH HYPERCAPNIA (3) [id number]-[id number] kidney injury Code(s): N17.9 - ACUTE KIDNEY FAILURE, UNSPECIFIED; N18.9 - CHRONIC KIDNEY DISEASE, UNSPECIFIED Qualifiers: Acute renal failure type: unspecified (4) Closed fracture of lumbar vertebral body Code(s): S32.009A - UNSP FRACTURE OF UNSP LUMBAR VERTEBRA, INIT FOR CLOS FX Assessment/Plan A 67F with advanced, acute medical problems requiring ICU level of care develop what appears to be a paralytic ileus in the settings of hypoxia, opiods, electorlytes abnormalities and renal insufficiency. Rule out bowel obstruction. Obtain non-contrast CT. Frequent abdominal exams and close monitoring. Correct electrolytes and avoid narcotics. NGT to intermittent suction. Sx consult. Discussed with the ICU team.
--- NOTE | 2017-11-10 13:40 | PN ---
Progress Note (short form) - Note Progress Note: Patient sen and examined Lethargic, but easily arouseable Lying in bed No specific complaints of pain currently Last Vital Signs Temp Pulse Resp BP Pulse Ox 98.4 F 116 H 19 120/76 94 L 11/10/17 12:21 11/10/17 12:11 11/10/17 12:11 11/10/17 12:11 11/10/17 12:20 HEENT: TONEY, EOM Intact Oropharynx: No thrush, No mucositis, dry mucous membranes Cor: RSR, No murmurs, No gallops Lungs: decreased breath sounds , rhonchi Abd: Soft, Normal bowel sounds, No organomegaly Ext:No significant edema Skin: No rashes, Integument intact CBC, BMP 11/10/17 05:50 Current Medications Generic Name Dose Route Start Last Admin Trade Name Freq PRN Reason Stop Dose Admin Acetaminophen 650 mg 11/06/17 20:13 Tylenol - PO Q6H PRN FEVER Acetaminophen 1,000 mg 11/10/17 05:21 Ofirmev Injection - IVPB Q6H PRN PAIN LEVEL 6-10 Albuterol Sulfate 1 amp 11/06/17 20:11 11/10/17 00:59 Ventolin 0.083% Nebulizer Soln - NEB 1 amp Q4H PRN Administration SHORT OF BREATH/WHEEZING Heparin Sodium (Porcine) 5,000 unit 11/08/17 22:00 11/10/17 06:05 Heparin - SQ 5,000 unit TID RANDI Administration Ampicillin Sodium/Sulbactam 100 mls @ 200 mls/hr 11/09/17 16:45 11/09/17 17: 34 Sodium 1.5 gm/ Sodium Chloride IVPB 200 mls/hr BID RANDI Administration Dextrose/Sodium Chloride 1,000 mls @ 125 mls/hr 11/10/17 11:00 D5-Ns - IV ASDIR RANDI Lorazepam 0.5 mg 11/10/17 08:34 11/10/17 09:17 Ativan Injection - IVPUSH 0.5 mg Q6H PRN Administration ANXIETY Metoclopramide HCl 10 mg 11/09/17 10:30 11/10/17 02:49 Reglan Injection - IVPUSH 10 mg Q6H-IV RANDI Administration Metoprolol Tartrate 5 mg 11/10/17 08:34 Lopressor Injection - IVPUSH Q4H PRN TACHYCARDIA Miscellaneous 1 each 11/06/17 22:00 11/09/17 19:00 Lidoderm Patch Removal MC 1 each DAILY@2200 RANDI Administration Miscellaneous 1 each 11/08/17 17:33 11/08/17 20:10 Duragesic Patch Waste TD 1 each PRN PRN Administration PAIN Ondansetron HCl 4 mg 11/07/17 19:02 11/10/17 03:31 Zofran Injection IVPB 4 mg Q4H PRN Administration NAUSEA AND/OR VOMITING Prochlorperazine Edisylate 2.5 mg 11/09/17 10:28 Compazine Injection - IVPB Q3H PRN NAUSEA AND/OR VOMITING Tiotropium [place] 1 puff 11/07/17 10:00 11/09/17 13:24 Spiriva - IH Not Given DAILY RANDI Impression: Acute compression fracture Aspiration MPD Hyperkalemia COPD Anxiety Leucocytosis- secndary to MPD and recent infection Thrombocytosis- secondary to MPD and recent infection Hyperkalemian- may be psuedohyperkalemia from thrombocytosis Plan: Patient previously on anagrelide 1 gm tid- will change order, Hyperkalemia- - will obtain serum and plama K+ to decide about therapy.
--- NOTE | 2017-11-10 13:49 | PN ---
Teaching Attending Note Name of Resident: Margo Lewis ATTENDING PHYSICIAN STATEMENT I saw and evaluated the patient. I reviewed the resident's note and discussed the case with the resident. I agree with the resident's findings and plan as documented. SUBJECTIVE:c/o back pain. nausea started again this AM and vomited her AM labs. denies Cp, SOB, fever, chills, C/D. OBJECTIVE: Last Vital Signs Temp Pulse Resp BP Pulse Ox 98.4 F 116 H 19 120/76 94 L 11/10/17 12:21 11/10/17 12:11 11/10/17 12:11 11/10/17 12:11 11/10/17 12:20 General slight tachypnic. resting comfortable CV S1 S2 tachy lungs Coarse breath sounds Abdomen soft distended. hepatomegaly Extremities no pedal edema unable to rotate to examine back ASSESSMENT AND PLAN: 67yo F with PMH COPD on home O2 3L NC, anxiety, myeloproliferative disorder, thrombophilia, diverticulosis s/p partial colectomy presented to the ER with low back pain 1. L1 vertebral fracture- likely steroid induced. evaluated by pain and Neurosurgery. has been unable to tolerate any oral pain medications. refusing IV medications. will place back lidoderm patch. awaiting TSLO brace. joseph hold PT at this time. pain management to weigh in on alternative treatments for pain. should follow up with PMD for DEXA scan to evalute for osteopenia 2. SVT-now sinus tach. responding to lopressor. does not appear to have bronchospasms. will cont with lopressor prn for tachycardia as unable to tolerate po. will consider starting standing dose if tachycardia persists. 3. Nausea and vomiting- can be pain or medication induced. NPO for now for bowel rest. cont reglan RTC. compazine and zofran prn nausea. increase IVF for dehydration. GI consult 4. Hyperkalemia- no peaked T waves on EKG. will give kayexylate PA 5. CKD- likely dehydration.FeNa <1%. likely dehydration. switch IVF to NS. trend Cr. renal on board 6. Acute on chronic hypoxic/hypercapnic failure- due to PNA. likely aspiration. tolerated bipap overnihgt. CO2 trending down. mental status back at baseline. started on Unasyn day 2. now on home o2 of 2-3L NC. slightly tachpynic as pt states she is pain. cont pred 15mg. pulmonary on board. 7. aspiration PNA- likely due to persistent vomiting. started on usnasyn. monitor vitals closely. 8. myeloproliferative disorder- leukocytosis at baseline. on hydroxyurea, asa, agrylin. can f/u wtih heme as outpatient 9. thrombophilia- at baseline. on asa 10. anxiety- xanax prn 11. DVT ppx- hep sq 12. MICU monitoring. spoke with children present at bedside. all questions answered. verbalized understanding and agreement with plan The care of this patient involved high complexity decision making to prevent further life threatening deterioration of the patient's condition and/or to evaluate & treat vital organ system(s) failure or risk of failure. Critical care time spent in reviewing chart, evaluating patient and formulating plan - 40 minutes.
[2017-11-10] MEDS ORDERED: ASPIRIN COATED 81 MG TABLET.EC PO SCH (14:00)
--- NOTE | 2017-11-10 15:28 | PN ---
Physical Exam: SUBJECTIVE: Patient seen and examined. Pt had tachycardia up to 138bpm, yesterday, mx for SVT with adenosine without breaking. Given cardizem then lopressor. Noted to have aspiration PNA yesterday, desated and transferred to ICU after becoming more lethargic and confused. Was on BIpap overnight. Was NPO overnight but vomited in am after PO xanax. Tele showing sinus tachy in am in 120s. Blood gas improved this am. Pt noticed to be back to baseline mentally. OBJECTIVE: Vital Signs Period Temp Pulse Resp BP Sys/Palacios Pulse Ox Last 24 Hr 97.9 F-99.8 F 95-130 18-25 112-153/64-101 93-98 Vital Signs Temp 98.5 F 11/10/17 14:49 Pulse 106 H 11/10/17 18:57 Resp 16 11/10/17 20:11 BP 139/71 11/10/17 18:57 Pulse Ox 96 11/10/17 20:18 Intake & Output 11/09/17 11/10/17 11/10/17 23:59 11:59 23:59 Intake Total 1210 780 550 Output Total 500 3600 1300 Balance 710 -2820 -750 Weight 54.93 kg Intake: IV 1210 780 450 1/2 Normal Saline 1,000 190 780 ml @ 65 mls/hr IV ASDIR RANDI Rx#:[id number] Cardizem Injection - 125 20 mg In Normal Saline - 100 ml @ 5 MG/HR 5 mls/hr IVPB TITR RANDI Rx#: [id number] D5-Ns - 1,000 ml @ 125 450 mls/hr IV ASDIR RANDI Rx#: [id number] LACTATED RINGERS SOLUTION 1000 1,000 ml In 1,000 ml @ 1000 mls/hr IV ONCE STA Rx#:[id number] IVPB 100 Output: Gastric Drainage 3000 700 Urine 500 600 600 Tillman 600 600 Void 500 Other: Voiding Method Indwelling Catheter Indwelling Catheter Indwelling Catheter Weight Measurement Method Built in [facility] Intake & Output 11/07/17 11/08/17 11/09/17 11/10/17 23:59 23:59 23:59 23:59 Intake Total 450 1050 1310 1330 Output Total 492 583 4640 Balance 80 1050 809 -3570 Weight 54.93 kg GENERAL: The patient is awake, alert, and fully oriented, on NC-2L ENT: NC-2L LUNGS: Wheezes and rhonchi HEART: Tachycardic, S1, S2 without murmur ABDOMEN: Distended, bowel sounds present EXTREMITIES: 2+ pulses, warm, well-perfused, no edema. NEUROLOGICAL: AAOx3, no facial droop, normal muscle strength globally CBC, BMP 11/10/17 05:50 11/10/17 12:40 Laboratory Results - last 24 hr 11/09/17 11/09/17 11/09/17 15:00 15:00 15:00 WBC RBC Hgb Hct MCV MCH MCHC RDW Plt Count MPV Absolute Neuts (auto) Total Counted Neutrophils % Neutrophils % (Manual) Band Neutrophils % Lymphocytes % Lymphocytes % (Manual) Monocytes % Monocytes % (Manual) Eosinophils % Eosinophils % (Manual) Basophils % Basophils % (Manual) Myelocytes % (Man) Promyelocytes % (Man) Blast Cells % (Manual) Nucleated RBC % Metamyelocytes Hypochromia Platelet Estimate Platelet Comment Polychromasia Anisocytosis Microcytosis Macrocytosis Tear Drop Cells Anticoagulation Therapy Puncture Site ABG pH ABG pCO2 at Pt Temp ABG pO2 at Pt Temp ABG HCO3 ABG O2 Sat (Measured) ABG O2 Content ABG Base Excess Hemanth Test O2 Delivery Device Oxygen Flow Rate Vent Mode Vent Rate Mechanical Rate PEEP Pressure Support Vent Sodium Potassium Plasma Potassium Chloride Carbon Dioxide Anion Gap BUN Creatinine Creat Clearance w eGFR Random Glucose Lactic Acid Calcium Total Bilirubin AST ALT Alkaline Phosphatase Ammonia Creatine Kinase Troponin I Total Protein Albumin Urine Color Dkyellow Urine Appearance Slcloudy Urine pH 5.0 Ur Specific [place] 1.018 Urine Protein 2+ H Urine Glucose (UA) Negative Urine Ketones Negative Urine Blood Negative Urine Nitrite Negative Urine Bilirubin Negative Urine Urobilinogen Negative Ur Leukocyte Esterase Negative Urine WBC (Auto) 1 Urine RBC (Auto) 1 Ur Epithelial Cells Rare Urine Mucus Rare Ur Random Sodium 18 Ur Random Potassium 71.7 Ur Random Chloride 31 Urine Creatinine 117.0 11/09/17 11/09/17 11/09/17 16:40 20:20 20:20 WBC 37.3 H* D RBC 5.40 H Hgb 14.0 Hct 46.3 H MCV 85.7 MCH 25.9 MCHC 30.3 L RDW 18.2 H Plt Count 951 H D MPV 10.5 D Absolute Neuts (auto) 36.1 Total Counted 100 Neutrophils % 96.7 H Neutrophils % (Manual) 83.0 H Band Neutrophils % 12.0 Lymphocytes % 0.6 L Lymphocytes % (Manual) 1.0 L D Monocytes % 2.3 L Monocytes % (Manual) 4 D Eosinophils % 0.1 Eosinophils % (Manual) Basophils % 0.3 Basophils % (Manual) Myelocytes % (Man) Promyelocytes % (Man) Blast Cells % (Manual) Nucleated RBC % 0 Metamyelocytes Hypochromia 1+ Platelet Estimate Significant increase Platelet Comment No clumping noted Polychromasia 1+ Anisocytosis 1+ Microcytosis 1+ Macrocytosis 1+ Tear Drop Cells Anticoagulation Therapy No Result Required. Puncture Site Right radial ABG pH 7.29 L ABG pCO2 at Pt Temp 56.9 H ABG pO2 at Pt Temp 67.9 L ABG HCO3 26.5 H ABG O2 Sat (Measured) 91.8 ABG O2 Content 18.4 ABG Base Excess -0.8 Hemanth Test Positive O2 Delivery Device Venti mask Oxygen Flow Rate 40% Vent Mode No Result Required. Vent Rate No Result Required. Mechanical Rate No Result Required. PEEP Pressure Support Vent No Result Required. Sodium 138 Potassium 5.8 H Plasma Potassium Chloride 94 L Carbon Dioxide 27 Anion Gap 17 H BUN 91 H Creatinine 3.0 H Creat Clearance w eGFR 15.57 Random Glucose 117 H Lactic Acid Calcium 8.7 Total Bilirubin 0.7 AST 15 ALT 22 Alkaline Phosphatase 94 Ammonia Creatine Kinase 34 Troponin I 0.04 Total Protein 6.5 Albumin 3.4 Urine Color Urine Appearance Urine pH Ur Specific [place] Urine Protein Urine Glucose (UA) Urine Ketones Urine Blood Urine Nitrite Urine Bilirubin Urine Urobilinogen Ur Leukocyte Esterase Urine WBC (Auto) Urine RBC (Auto) Ur Epithelial Cells Urine Mucus Ur Random Sodium Ur Random Potassium Ur Random Chloride Urine Creatinine 11/09/17 11/09/17 11/10/17 20:20 20:20 05:10 WBC RBC Hgb Hct MCV MCH MCHC RDW Plt Count MPV Absolute Neuts (auto) Total Counted Neutrophils % Neutrophils % (Manual) Band Neutrophils % Lymphocytes % Lymphocytes % (Manual) Monocytes % Monocytes % (Manual) Eosinophils % Eosinophils % (Manual) Basophils % Basophils % (Manual) Myelocytes % (Man) Promyelocytes % (Man) Blast Cells % (Manual) Nucleated RBC % Metamyelocytes Hypochromia Platelet Estimate Platelet Comment Polychromasia Anisocytosis Microcytosis Macrocytosis Tear Drop Cells Anticoagulation Therapy No Result Required. Puncture Site Left radial ABG pH 7.37 ABG pCO2 at Pt Temp 53.4 H ABG pO2 at Pt Temp 82.7 D ABG HCO3 30.0 H ABG O2 Sat (Measured) 95.9 ABG O2 Content 19.6 ABG Base Excess 3.8 H Hemanth Test Positive O2 Delivery Device Bipap Oxygen Flow Rate 40% Vent Mode No Result Required. Vent Rate Mechanical Rate No Result Required. PEEP 5.0 Pressure Support Vent Sodium Potassium Plasma Potassium Chloride Carbon Dioxide Anion Gap BUN Creatinine Creat Clearance w eGFR Random Glucose Lactic Acid 1.2 Calcium Total Bilirubin AST ALT Alkaline Phosphatase Ammonia 18.9 Creatine Kinase Troponin I Total Protein Albumin Urine Color Urine Appearance Urine pH Ur Specific [place] Urine Protein Urine Glucose (UA) Urine Ketones Urine Blood Urine Nitrite Urine Bilirubin Urine Urobilinogen Ur Leukocyte Esterase Urine WBC (Auto) Urine RBC (Auto) Ur Epithelial Cells Urine Mucus Ur Random Sodium Ur Random Potassium Ur Random Chloride Urine Creatinine 11/10/17 11/10/17 11/10/17 05:50 05:50 09:00 WBC 35.2 H* RBC 5.38 H Hgb 14.3 Hct 45.6 H MCV 84.8 MCH 26.6 MCHC 31.4 L RDW 18.6 H Plt Count 898 H MPV 10.5 Absolute Neuts (auto) 34.1 Total Counted Neutrophils % 96.9 H Neutrophils % (Manual) 85.7 H Band Neutrophils % 10.2 Lymphocytes % 1.0 L D Lymphocytes % (Manual) 0.0 L Monocytes % 1.8 L Monocytes % (Manual) 4 Eosinophils % 0.1 Eosinophils % (Manual) 0.0 Basophils % 0.2 Basophils % (Manual) 0.0 Myelocytes % (Man) 0 Promyelocytes % (Man) 0 Blast Cells % (Manual) 0 Nucleated RBC % 0 Metamyelocytes 0 Hypochromia Platelet Estimate Increased Platelet Comment Polychromasia 2+ Anisocytosis 1+ Microcytosis 2+ Macrocytosis Tear Drop Cells 1+ Anticoagulation Therapy Puncture Site ABG pH ABG pCO2 at Pt Temp ABG pO2 at Pt Temp ABG HCO3 ABG O2 Sat (Measured) ABG O2 Content ABG Base Excess Hemanth Test O2 Delivery Device Oxygen Flow Rate Vent Mode Vent Rate Mechanical Rate PEEP Pressure Support Vent Sodium 135 L Potassium 6.2 H* Plasma Potassium 4.9 Chloride 93 L Carbon Dioxide 28 Anion Gap 14 BUN 101 H Creatinine 3.6 H Creat Clearance w eGFR Random Glucose 104 Lactic Acid Calcium 8.7 Total Bilirubin AST ALT Alkaline Phosphatase Ammonia Creatine Kinase Troponin I Total Protein Albumin Urine Color Urine Appearance Urine pH Ur Specific [place] Urine Protein Urine Glucose (UA) Urine Ketones Urine Blood Urine Nitrite Urine Bilirubin Urine Urobilinogen Ur Leukocyte Esterase Urine WBC (Auto) Urine RBC (Auto) Ur Epithelial Cells Urine Mucus Ur Random Sodium Ur Random Potassium Ur Random Chloride Urine Creatinine 11/10/17 12:40 WBC RBC Hgb Hct MCV MCH MCHC RDW Plt Count MPV Absolute Neuts (auto) Total Counted Neutrophils % Neutrophils % (Manual) Band Neutrophils % Lymphocytes % Lymphocytes % (Manual) Monocytes % Monocytes % (Manual) Eosinophils % Eosinophils % (Manual) Basophils % Basophils % (Manual) Myelocytes % (Man) Promyelocytes % (Man) Blast Cells % (Manual) Nucleated RBC % Metamyelocytes Hypochromia Platelet Estimate Platelet Comment Polychromasia Anisocytosis Microcytosis Macrocytosis Tear Drop Cells Anticoagulation Therapy Puncture Site ABG pH ABG pCO2 at Pt Temp ABG pO2 at Pt Temp ABG HCO3 ABG O2 Sat (Measured) ABG O2 Content ABG Base Excess Hemanth Test O2 Delivery Device Oxygen Flow Rate Vent Mode Vent Rate Mechanical Rate PEEP Pressure Support Vent Sodium Potassium 5.2 H Plasma Potassium Chloride Carbon Dioxide Anion Gap BUN Creatinine Creat Clearance w eGFR Random Glucose Lactic Acid Calcium Total Bilirubin AST ALT Alkaline Phosphatase Ammonia Creatine Kinase Troponin I Total Protein Albumin Urine Color Urine Appearance Urine pH Ur Specific [place] Urine Protein Urine Glucose (UA) Urine Ketones Urine Blood Urine Nitrite Urine Bilirubin Urine Urobilinogen Ur Leukocyte Esterase Urine WBC (Auto) Urine RBC (Auto) Ur Epithelial Cells Urine Mucus Ur Random Sodium Ur Random Potassium Ur Random Chloride Urine Creatinine Active Medications Generic Name Dose Route Start Last Admin Trade Name Freq PRN Reason Stop Dose Admin Acetaminophen 650 mg 11/06/17 20:13 Tylenol - PO Q6H PRN FEVER Acetaminophen 1,000 mg 11/10/17 05:21 Ofirmev Injection - IVPB Q6H PRN PAIN LEVEL 6-10 Albuterol Sulfate 1 amp 11/06/17 20:11 11/10/17 00:59 Ventolin 0.083% Nebulizer Soln - NEB 1 amp Q4H PRN Administration SHORT OF BREATH/WHEEZING Anagrelide HCl 1 mg 11/10/17 14:00 Agrylin PO TID [facility] Aspirin 81 mg 11/10/17 14:00 Ecotrin - PO DAILY RANDI Heparin Sodium (Porcine) 5,000 unit 11/08/17 22:00 11/10/17 06:05 Heparin - SQ 5,000 unit TID RANDI Administration Ampicillin Sodium/Sulbactam 100 mls @ 200 mls/hr 11/09/17 16:45 11/09/17 17: 34 Sodium 1.5 gm/ Sodium Chloride IVPB 200 mls/hr BID RANDI Administration Dextrose/Sodium Chloride 1,000 mls @ 125 mls/hr 11/10/17 11:00 D5-Ns - IV ASDIR RANDI Lorazepam 0.5 mg 11/10/17 08:34 11/10/17 09:17 Ativan Injection - IVPUSH 0.5 mg Q6H PRN Administration ANXIETY Metoclopramide HCl 10 mg 11/09/17 10:30 11/10/17 02:49 Reglan Injection - IVPUSH 10 mg Q6H-IV RANDI Administration Metoprolol Tartrate 5 mg 11/10/17 08:34 Lopressor Injection - IVPUSH Q4H PRN TACHYCARDIA Miscellaneous 1 each 11/06/17 22:00 11/09/17 19:00 Lidoderm Patch Removal MC 1 each DAILY@2200 RANDI Administration Miscellaneous 1 each 11/08/17 17:33 11/08/17 20:10 Duragesic Patch Waste TD 1 each PRN PRN Administration PAIN Prochlorperazine Edisylate 2.5 mg 11/09/17 10:28 Compazine Injection - IVPB Q3H PRN NAUSEA AND/OR VOMITING Tiotropium [place] 1 puff 11/07/17 10:00 11/09/17 13:24 Spiriva - IH Not Given DAILY [facility] Ambulatory Orders Albuterol Sulfate [Proair Hfa -] 1 - 2 inh PO PRN PRN 01/28/14 Alprazolam [Xanax] 0.25 mg PO PRN PRN 07/21/16 Anagrelide HCl [Agrylin -] 0.5 mg PO TID 11/14/16 Linaclotide [Linzess] 72 mcg PO Q2D 02/06/17 Albuterol 0.083% Nebulizer Chika [Ventolin 0.083% Nebulizer Soln -] 1 amp NEB Q4H PRN amp 06/24/17 Aspirin [ASA -] 81 mg PO DAILY tab.chew 06/24/17 Hydroxyurea [Hydrea 500Mg Capsule -] 500 mg PO MoWeFr@1000 capsule 06/24/17 Allopurinol [Zyloprim -] 200 mg PO DAILY 10/25/17 Roflumilast [Daliresp -] 500 mcg PO Q2D 10/25/17 Tiotropium [place] [Spiriva] 1 inh IH DAILY 10/25/17 traZODone HCL [Desyrel -] 100 mg PO HS 10/25/17 Oxycodone HCl/Acetaminophen [Percocet 5-325 mg Tablet] 1 - 2 tab PO Q6H PRN #20 tab MDD 8 tabs 10/31/17 Prednisone [Deltasone] 20 mg PO DAILY 11/08/17 Current Medications Acetaminophen (Tylenol -) 650 mg PO Q6H PRN PRN Reason: FEVER Acetaminophen (Ofirmev Injection -) 1,000 mg IVPB Q6H PRN PRN Reason: PAIN LEVEL 6-10 Albuterol Sulfate (Ventolin 0.083% Nebulizer Soln -) 1 amp NEB Q4H PRN PRN Reason: SHORT OF BREATH/WHEEZING Last Admin: 11/10/17 00:59 Dose: 1 amp Anagrelide HCl (Agrylin) 1 mg PO TID [facility] Last Admin: 11/10/17 15:52 Dose: Not Given Aspirin (Asa -) 150 mg RC DAILY [facility] Last Admin: 11/10/17 17:17 Dose: 150 mg Heparin Sodium (Porcine) (Heparin -) 5,000 unit SQ TID [facility] Last Admin: 11/10/17 15:00 Dose: 5,000 unit Ampicillin Sodium/Sulbactam (Sodium 1.5 gm/ Sodium Chloride) 100 mls @ 200 mls/ hr IVPB BID [facility] Last Admin: 11/10/17 11:00 Dose: 200 mls/hr Dextrose/Sodium Chloride (D5-Ns -) 1,000 mls @ 125 mls/hr IV ASDIR [facility] Last Admin: 11/10/17 11:00 Dose: 125 mls/hr Lorazepam (Ativan Injection -) 0.5 mg IVPUSH Q6H PRN PRN Reason: ANXIETY Last Admin: 11/10/17 09:17 Dose: 0.5 mg Metoclopramide HCl (Reglan Injection -) 10 mg IVPUSH Q6H-IV RANDI Last Admin: 11/10/17 15:46 Dose: Not Given Metoprolol Tartrate (Lopressor Injection -) 5 mg IVPUSH Q4H PRN PRN Reason: TACHYCARDIA Miscellaneous (Lidoderm Patch Removal) 1 each MC DAILY@2200 RANDI Last Admin: 11/09/17 19:00 Dose: 1 each Miscellaneous (Duragesic Patch Waste) 1 each TD PRN PRN PRN Reason: PAIN Last Admin: 11/08/17 20:10 Dose: 1 each Prochlorperazine Edisylate (Compazine Injection -) 2.5 mg IVPB Q3H PRN PRN Reason: NAUSEA AND/OR VOMITING Saliva Substitute (Mouthkote Solution -) 1 applic MM DAILY [facility] Tiotropium [place] (Spiriva -) 1 puff IH DAILY [facility] Last Admin: 11/10/17 10:00 Dose: Not Given Lumbar spine CT without contrast 11/06/17: Acute L1 vertebral body compression fracture ASSESSMENT/PLAN: Patient is a 67 year old female with significant past medical history of COPD on 3 L and steroids , MPD on aspirin, thrombocytosis, Hepatosplenomegaly, CKD, anxiety, cardiomegaly, h/o of floaters, h/o diverticulitis s/p partial colectomy presented with severe left sided lower back pain. #Acute on chronic respiratory failure Respiratory acidosis - resolving PH normalizing likely secondary to aspiration PNA from vomiting Pt made NPO Was placed on bipap overnight, continued on NC- oxygen to maintain sats above 90% Pt on 3L home oxygen with COPD, sating low 80s Respiratory tx Low treshold for intubation if needed #Aspiration PNA Continue Unasyn Aspiration precautions Oxygen as needed #Acute metabolic encephalopathy Improved- Pt appears at baseline Likely secondary to hypoxia from aspiration PNA Pt made NPO overnight Maintained on BIPAP with improved hypoxia, ow on NC #Intractable emesis Resulted in aspiration PNA Pt made NPO iv meds only NGT inserted under suction GI consulted AXR- showed ileus R/O bowel obstruction Surgical consult Monitor lytes, replete as needed CT abd w/o contrast- likely ileus- Likely secondary to opiates- opiates held Dr Medrano consulted-anagrelid on board-zosyn dcd Cont reglan and compazine Ileus R/o SBO Cont NPO NGT [facility] consult Sx consult Monitor #Tachycardia Now sinus tachy Appeared like SVT but did not break with adenosine or cardizem Pt maintained on lopressor due to failed cardizem despite COPD hx Dr Thomas on board 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 Morales place a TLSO brace for comfort Will need outpatient DEXA scan and workup for osteoporosis Lidocaine patch- for local action to minimize systemic side effects # Hyperkalemia Pseudo hyperkalemia Plasma K lower Nephro on board Oncology on board # COPD: Not in exacerbation continue Oxygen supplementation Steroids dcd # CKD: Cr trending up, baseline around 1.5 FeUrea- prerenal picture Likely due to dehydration from vomiting Background chronically shrunken kidneys- KUB US Avoid nephrotoxic substances Cont Iv hydration Nephro on board # Myeloproliferative Disorder: continue Agrilyn - per Dr Medrano #Chest pain Resolved in am Could be musculoskeletal related to retching R/O ACS Pt is currently tachycardic- could be due to anxiety or pain EKG stat Cardiac profile ativan 0.5mg Q6h prn # IBS Hold Linaclotide # Prophylaxis For DVT: On Heparin 5000 IU sq TID For GI: Not indicated # FEN IV NS @ 75mls/hr for Acute on chronic CKD, Monitor lytes NPO # Dispo: ICU Visit type - Emergency Visit Emergency Visit: Yes ED Registration Date: 11/09/17 Care time: The patient presented to the Emergency Department on the above date and was hospitalized for further evaluation of their emergent condition. - New Patient This patient is new to me today: No - Critical Care Critical Care patient: Yes Total Critical Care Time (in minutes): 40 Critical Care Statement: The care of this patient involved high complexity decision making to prevent further life threatening deterioration of the patient 's condition and/or to evaluate & treat vital organ system(s) failure or risk of failure.
[2017-11-10] MEDS: ANAGRELIDE HCL 1 MG PO SCH ×2 (15:52→21:47)
[2017-11-10] MEDS: ASPIRIN 300 MG SUPP.RECT RC SCH (17:17)
[2017-11-10] MEDS: LIDOCAINE PATCH REMOVAL MC SCH (21:47)
--- NOTE | 2017-11-10 22:42 | PN ---
Progress Note (short form) - Note Progress Note: Problems 1. CKD with acute component 2. hyperkalemia - likely in part pseudohyperkalemia 3. copd exacerbation 4. essential thrombocytosis 5. htn 6. anxiety 7. diverticulosis 8. hemorrhoids 9. leukocytosis Current Medications Acetaminophen (Tylenol -) 650 mg PO Q6H PRN PRN Reason: FEVER Acetaminophen (Ofirmev Injection -) 1,000 mg IVPB Q6H PRN PRN Reason: PAIN LEVEL 6-10 Albuterol Sulfate (Ventolin 0.083% Nebulizer Soln -) 1 amp NEB Q4H PRN PRN Reason: SHORT OF BREATH/WHEEZING Last Admin: 11/10/17 00:59 Dose: 1 amp Anagrelide HCl (Agrylin) 1 mg PO TID RANDI Last Admin: 11/10/17 21:47 Dose: 1 mg Aspirin (Asa -) 150 mg RC DAILY [facility]I Last Admin: 11/10/17 17:17 Dose: 150 mg Heparin Sodium (Porcine) (Heparin -) 5,000 unit SQ TID [facility]ANDI Last Admin: 11/10/17 21:47 Dose: 5,000 unit Ampicillin Sodium/Sulbactam (Sodium 1.5 gm/ Sodium Chloride) 100 mls @ 200 mls/ hr IVPB BID RANDI Last Admin: 11/10/17 21:47 Dose: 200 mls/hr Dextrose/Sodium Chloride (D5-Ns -) 1,000 mls @ 125 mls/hr IV ASDIR RANDI Last Admin: 11/10/17 11:00 Dose: 125 mls/hr Lorazepam (Ativan Injection -) 0.5 mg IVPUSH Q6H PRN PRN Reason: ANXIETY Last Admin: 11/10/17 22:23 Dose: 0.5 mg Metoclopramide HCl (Reglan Injection -) 10 mg IVPUSH Q6H-IV RANDI Last Admin: 11/10/17 21:47 Dose: Not Given Metoprolol Tartrate (Lopressor Injection -) 5 mg IVPUSH Q4H PRN PRN Reason: TACHYCARDIA Miscellaneous (Lidoderm Patch Removal) 1 each MC DAILY@2200 RANDI Last Admin: 11/10/17 21:47 Dose: 1 each Miscellaneous (Duragesic Patch Waste) 1 each TD PRN PRN PRN Reason: PAIN Last Admin: 11/08/17 20:10 Dose: 1 each Prochlorperazine Edisylate (Compazine Injection -) 2.5 mg IVPB Q3H PRN PRN Reason: NAUSEA AND/OR VOMITING Saliva Substitute (Mouthkote Solution -) 1 applic MM DAILY [facility]I Tiotropium [place] (Spiriva -) 1 puff IH DAILY [facility]I Last Admin: 11/10/17 10:00 Dose: Not Given Last Vital Signs Temp Pulse Resp BP Pulse Ox 98.5 F 102 H 20 162/89 96 11/10/17 14:49 11/10/17 22:00 11/10/17 22:00 11/10/17 22:00 11/10/17 21:00 lungs clear heart reg abd soft nontender ext no edema CBC, BMP 11/10/17 05:50 11/10/17 12:40 IMP- aisha/ckd copd htn Plan - monitor renal function and electrolytes follow k
[2017-11-11] MEDS: METOCLOPRAMIDE HCL INJECTION 10 MG/2 ML VIAL IVPUSH SCH (02:42)
[2017-11-11] MEDS: HEPARIN NA (PORCINE) 5,000 UNITS/ML 1ML VIAL SQ SCH ×3 (05:52→21:58)
[2017-11-11] MEDS: ANAGRELIDE HCL 1 MG PO SCH ×4 (05:52→21:30)
[2017-11-11] MEDS: ACETAMINOPHEN 1000 MG/100 ML VIAL (NON FORMULARY) IVPB PRN (05:53)
[2017-11-11 06:15] LABS: ALBUMIN 2.8 g/dl (3.4-5.0); ANION GAP 4 (8-16); BLOOD UREA NITROGEN 102 mg/dL (7-18); CALCIUM 8.1 mg/dL (8.5-10.1); CHLORIDE 98 mmol/L (98-107); CO2 41 mmol/L (21-32); GLUCOSE,RANDOM 104 mg/dL (74-106); POTASSIUM 4.9 mmol/L (3.5-5.1); SODIUM 143 mmol/L (136-145)
[2017-11-11 06:19] LABS: ALK PHOS 71 U/L (45-117); BILIRUBIN,TOTAL 0.4 mg/dL (0.2-1.0); CREATININE 3.4 mg/dL (0.55-1.02); SGOT/AST 17 U/L (15-37); SGPT/ALT 21 U/L (12-78); TOT PROT 5.7 g/dl (6.4-8.2)
[2017-11-11 06:22] LABS: HEMATOCRIT 43.9 % (32.4-45.2); HEMOGLOBIN 13.8 GM/dL (10.7-15.3); MCH 26.6 pg (25.7-33.7); MCHC 31.5 g/dl (32.0-36.0); MEAN CELL VOLUME 84.6 fl (80-96); MEAN PLT VOLUME 9.4 fl (7.5-11.1); PLATELET COUNT 625 K/MM3 (134-434); RBC 5.19 M/mm3 (3.60-5.2); RDW 18.3 % (11.6-15.6)
[2017-11-11] MEDS ORDERED: ACETAMINOPHEN 325 MG TABLET (FP) PO PRN (07:07)
[2017-11-11] MEDS ORDERED: ALBUTEROL SO4 0.083% IH SOL 2.5 MG/3 ML VIAL.NEB. NEB PRN (07:07)
[2017-11-11] MEDS ORDERED: FENTANYL PATCH WASTE TD PRN (07:07)
--- NOTE | 2017-11-11 07:17 | PN ---
Progress Note (short form) - Note Progress Note: c/o nausea and anxiety. only mild relief with NGT placement. denies CP, SOB, fever, chills, V/C/D. no flatus last BM was monday Current Medications Generic Name Dose Route Start Last Admin Trade Name Freq PRN Reason Stop Dose Admin Acetaminophen 1,000 mg 11/10/17 05:21 11/11/17 05:53 Ofirmev Injection - IVPB 1,000 mg Q6H PRN Administration PAIN LEVEL 6-10 Acetaminophen 650 mg 11/11/17 07:07 Tylenol - PO Q6H PRN FEVER Albuterol Sulfate 1 amp 11/11/17 07:07 Ventolin 0.083% Nebulizer Soln - NEB Q4H PRN SHORT OF BREATH/WHEEZING Anagrelide HCl 1 mg 11/10/17 14:00 11/11/17 06:45 Agrylin PO Not Given TID RANDI Aspirin 150 mg 11/10/17 15:45 11/10/17 17:17 Asa - RC 150 mg DAILY RANDI Administration Chlorhexidine Gluconate 1 applic 11/11/17 07:07 Hibiclens For Decolonization - TP HS RANDI Heparin Sodium (Porcine) 5,000 unit 11/11/17 14:00 Heparin - SQ TID RANDI Dextrose/Sodium Chloride 1,000 mls @ 75 mls/hr 11/10/17 23:15 11/11/17 02:32 D5-Ns - IV 75 mls/hr ASDIR RANDI Administration Ampicillin Sodium/Sulbactam 100 mls @ 200 mls/hr 11/11/17 10:00 Sodium 1.5 gm/ Sodium Chloride IVPB BID RANDI Lorazepam 0.5 mg 11/10/17 08:34 11/10/17 22:23 Ativan Injection - IVPUSH 0.5 mg Q6H PRN Administration ANXIETY Metoclopramide HCl 10 mg 11/11/17 09:00 Reglan Injection - IVPUSH Q6H-IV RANDI Metoprolol Tartrate 5 mg 11/10/17 08:34 Lopressor Injection - IVPUSH Q4H PRN TACHYCARDIA Mupirocin 1 applic 11/11/17 08:00 Bactroban Ointment (For Decolonization) - NS 11/16/17 07:59 BID RANDI Prochlorperazine Edisylate 2.5 mg 11/11/17 07:07 Compazine Injection - IVPB Q3H PRN NAUSEA AND/OR VOMITING Saliva Substitute 1 applic 11/10/17 16:15 [place]outhk[place] Solution - MM DAILY RANDI Tiotropium [place] 1 puff 11/11/17 10:00 Spiriva - IH DAILY RANDI Last Vital Signs Temp Pulse Resp BP Pulse Ox 98.1 F 99 H 20 148/86 94 L 11/11/17 06:00 11/11/17 06:00 11/11/17 06:00 11/11/17 06:00 11/11/17 06:00 Intake & Output 11/08/17 11/09/17 11/10/17 11/11/17 23:59 23:59 23:59 23:59 Intake Total 1050 1310 1705 525 Output Total 501 5850 450 Balance 1050 809 -4140 75 Weight 121 lb 1.6 oz 118 lb 14.4 oz General anxious, dry heaving CV S1 S2 tachy lungs Coarse breath sounds Abdomen soft distended. hepatomegaly, hypoactive BS Extremities no pedal edema rectal multiple external hemorrhoids. good rectal tone. minimal stool in rectal vault CBCD WBC 24.0 K/mm3 (4.0-10.0) H D 11/11/17 05:45 RBC 5.19 M/mm3 (3.60-5.2) 11/11/17 05:45 Hgb 13.8 GM/dL (10.7-15.3) 11/11/17 05:45 Hct 43.9 % (32.4-45.2) 11/11/17 05:45 MCV 84.6 fl (80-96) 11/11/17 05:45 MCHC 31.5 g/dl (32.0-36.0) L 11/11/17 05:45 RDW 18.3 % (11.6-15.6) H 11/11/17 05:45 Plt Count 625 K/MM3 (134-434) H D 11/11/17 05:45 MPV 9.4 fl (7.5-11.1) D 11/11/17 05:45 CMP Sodium 143 mmol/L (136-145) 11/11/17 05:45 Potassium 4.9 mmol/L (3.5-5.1) 11/11/17 05:45 Chloride 98 mmol/L (98-107) 11/11/17 05:45 Carbon Dioxide 41 mmol/L (21-32) H 11/11/17 05:45 Anion Gap 4 (8-16) L 11/11/17 05:45 BUN 102 mg/dL (7-18) H 11/11/17 05:45 Creatinine 3.4 mg/dL (0.55-1.02) H 11/11/17 05:45 Creat Clearance w eGFR 13.47 (>60) 11/11/17 05:45 Calcium 8.1 mg/dL (8.5-10.1) L 11/11/17 05:45 Total Bilirubin 0.4 mg/dL (0.2-1.0) D 11/11/17 05:45 AST 17 U/L (15-37) 11/11/17 05:45 ALT 21 U/L (12-78) 11/11/17 05:45 Alkaline Phosphatase 71 U/L (45-117) 11/11/17 05:45 Total Protein 5.7 g/dl (6.4-8.2) L 11/11/17 05:45 Albumin 2.8 g/dl (3.4-5.0) L 11/11/17 05:45 ASSESSMENT AND PLAN: 67yo F with PMH COPD on home O2 3L NC, anxiety, myeloproliferative disorder, thrombophilia, diverticulosis s/p partial colectomy presented to the ER with low back pain 1. L1 vertebral fracture- likely steroid induced. evaluated by pain and Neurosurgery. on lidoderm patch. TLSO brace. should follow up with PMD for DEXA scan to evalute for osteopenia 2. atrial tachycardia- did not respond to adenosine. HR mostly controlled. lopressor prn. will obtain echo. previous one from 05/2017. 3. SBO- ileus seen on CT scan. NGT with 3L bile output. an additional 1.3L since then. only mild relief. NGT may have some bleeding noted in it. as per RN not seen when first inserted. check gastric contents for blood. FOBT. cont NPO , IVF, complete bowel rest. GI and surgery on board. 4. Hyperkalemia- resolved 5. CKD- likely dehydration.FeNa <1%. likely dehydration. slowly improving. renal dose all medications.renal on board 6. Acute on chronic hypoxic/hypercapnic failure- due to PNA. likely aspiration. saturating well on 3L NC.pulmonary on board. 7. aspiration PNA- likely due to persistent vomiting. on usnasyn day 3. monitor vitals closely. 8. myeloproliferative disorder- leukocytosis at baseline. on hydroxyurea, asa, agrylin. heme on board 9. thrombophilia- at baseline. on asa 10. anxiety- xanax prn 11. DVT ppx- hep sq 12. MICU monitoring. The care of this patient involved high complexity decision making to prevent further life threatening deterioration of the patient's condition and/or to evaluate & treat vital organ system(s) failure or risk of failure. Critical care time spent in reviewing chart, evaluating patient and formulating plan - 35 minutes. Visit type - Emergency Visit Emergency Visit: Yes ED Registration Date: 11/09/17 Care time: The patient presented to the Emergency Department on the above date and was hospitalized for further evaluation of their emergent condition. - New Patient This patient is new to me today: No - Critical Care Critical Care patient: Yes Total Critical Care Time (in minutes): 35 Critical Care Statement: The care of this patient involved high complexity decision making to prevent further life threatening deterioration of the patient 's condition and/or to evaluate & treat vital organ system(s) failure or risk of failure. - Discharge Referral Referred to [facility] Med P.C.: No
[2017-11-11] MEDS ORDERED: LORazepam 2 MG/ML SDV VIAL ONE ×2 (07:50→14:07)
[2017-11-11] MEDS: MUPIROCIN 2% TOPICAL OINTMENT FOR DECOLONIZATION NS SCH ×2 (08:00→21:58)
[2017-11-11] MEDS: CHLORHEXIDINE GLUCONATE 4% CLEANSER FOR DECOLONIZATION TP SCH ×2 (08:00→21:58)
--- NOTE | 2017-11-11 08:37 | PN ---
Progress Note (short form) - Note Progress Note: Chief Complaint: Events noted, notes reviewed, complaining of nausea, denies any chest pain or dyspnea, sinus rhythm is noted/sinus tachycardia History of Present Illness: Seen and examined in the ICU. Events noted, notes reviewed, complaining of nausea, denies any chest pain or dyspnea, sinus rhythm is noted/sinus tachycardia 12 lead EKG noted at the time of the tachycardia, probable ectopic atrial tachycardia vs. sinus tachycardia, since patient did not respond to Adenosine therapy my suspicion that there is no AV aleksandra involvement in the pathway Abdominal distention related to ileus noted and is persistent, evaluation and management is in progress Echocardiography dated Jun 20, 2017 revealed normal LV size (hyperdynamic) and function, trace MR, TR moderate pulmonary HTN with RVSP 47 mmHg - Current Medication List Current Medications: Current Medications Acetaminophen (Ofirmev Injection -) 1,000 mg IVPB Q6H PRN PRN Reason: PAIN LEVEL 6-10 Last Admin: 11/11/17 05:53 Dose: 1,000 mg Acetaminophen (Tylenol -) 650 mg PO Q6H PRN PRN Reason: FEVER Albuterol Sulfate (Ventolin 0.083% Nebulizer Soln -) 1 amp NEB Q4H PRN PRN Reason: SHORT OF BREATH/WHEEZING Anagrelide HCl (Agrylin) 1 mg PO TID [facility] Last Admin: 11/11/17 06:45 Dose: Not Given Aspirin (Asa -) 150 mg RC DAILY [facility] Last Admin: 11/10/17 17:17 Dose: 150 mg Chlorhexidine Gluconate (Hibiclens For Decolonization -) 1 applic TP HS [facility] Heparin Sodium (Porcine) (Heparin -) 5,000 unit SQ TID [facility] Dextrose/Sodium Chloride (D5-Ns -) 1,000 mls @ 75 mls/hr IV ASDIR RANDI Last Admin: 11/11/17 02:32 Dose: 75 mls/hr Ampicillin Sodium/Sulbactam (Sodium 1.5 gm/ Sodium Chloride) 100 mls @ 200 mls/ hr IVPB BID RANDI Lorazepam (Ativan Injection -) 0.5 mg IVPUSH Q6H PRN PRN Reason: ANXIETY Last Admin: 11/10/17 22:23 Dose: 0.5 mg Metoclopramide HCl (Reglan Injection -) 10 mg IVPUSH Q6H-IV RANDI Metoprolol Tartrate (Lopressor Injection -) 5 mg IVPUSH Q4H PRN PRN Reason: TACHYCARDIA Mupirocin (Bactroban Ointment (For Decolonization) -) 1 applic NS BID RANDI Stop: 11/16/17 07:59 Prochlorperazine Edisylate (Compazine Injection -) 2.5 mg IVPB Q3H PRN PRN Reason: NAUSEA AND/OR VOMITING Saliva Substitute ([place] Solution -) 1 applic MM DAILY RANDI Tiotropium [place] (Spiriva -) 1 puff IH DAILY [facility] Review of Systems Cardiovascular: As noted above Respiratory: denies: Cough or Sputum Production Gastrointestinal: denies: Vomiting, Diarrhea, Constipation or Abdominal Discomfort but reports Nausea and Abdominal Distention Musculoskeletal: No Symptoms Reported Endocrine: No Symptoms Reported - Objective Vital Signs: Last Vital Signs Temp Pulse Resp BP Pulse Ox 98.1 F 99 H 20 148/86 94 L 11/11/17 06:00 11/11/17 06:00 11/11/17 06:00 11/11/17 06:00 11/11/17 06:00 Intake & Output 11/08/17 11/09/17 11/10/17 11/11/17 23:59 23:59 23:59 23:59 Intake Total 1050 1310 1705 525 Output Total 501 5850 450 Balance 1050 809 -4145 75 Weight 121 lb 1.6 oz 118 lb 14.4 oz Constitutional: Mild Distress, Thin Neck: Supple Cardiovascular: S1 S2 Regular Rate Rhythm Respiratory: Diminished at the Bases Gastrointestinal: Distention Hyperactive Bowel Sounds Ext: No Edema Labs: CBC, BMP 11/11/17 05:45 11/11/17 05:45 Assessment/Plan ASSESSMENT: 1. PSVT ectopic atrial tachycardia vs. sinus tachycardia, unlikely to be AV aleksandra reentrant or accessory pathway mediated tachycardia (Adenosine non responsive) 2. Acute on chronic hypercapneic, hypoxic respiratory failure, pneumonia possible aspiration 3. COPD, on chronic steroid and home O2 dependent 4. Myelo-proliferative disorder 5. Acute on CKD with hyperkalemia 6. Nausea most likely related to ileus 7. Lumber spine compression fracture PLAN: 1. Antibiotics as per the primary 2. bronchodilators as per the primary team 3. Continue IV Lopressor as needed, and hemodynamics permit 4. Surgical consult for evaluation of the above noted ileus Ca Cannon MD
--- NOTE | 2017-11-11 08:56 | PN ---
Progress Note (short form) - Note Progress Note: Seen and examined in ICU Didnt require BiPAP overnight NGT remain to suction total 4.3 liters of bilious drainage, still w/ c/o nausea WBC improving SCr stable Current Medications Acetaminophen (Ofirmev Injection -) 1,000 mg IVPB Q6H PRN PRN Reason: PAIN LEVEL 6-10 Last Admin: 11/11/17 05:53 Dose: 1,000 mg Acetaminophen (Tylenol -) 650 mg PO Q6H PRN PRN Reason: FEVER Albuterol Sulfate (Ventolin 0.083% Nebulizer Soln -) 1 amp NEB Q4H PRN PRN Reason: SHORT OF BREATH/WHEEZING Anagrelide HCl (Agrylin) 1 mg PO TID [facility] Last Admin: 11/11/17 06:45 Dose: Not Given Aspirin (Asa -) 150 mg RC DAILY [facility] Last Admin: 11/10/17 17:17 Dose: 150 mg Chlorhexidine Gluconate (Hibiclens For Decolonization -) 1 applic TP HS [facility] Heparin Sodium (Porcine) (Heparin -) 5,000 unit SQ TID RANDI Dextrose/Sodium Chloride (D5-Ns -) 1,000 mls @ 75 mls/hr IV ASDIR RANDI Last Admin: 11/11/17 02:32 Dose: 75 mls/hr Ampicillin Sodium/Sulbactam (Sodium 1.5 gm/ Sodium Chloride) 100 mls @ 200 mls/ hr IVPB BID [facility] Lorazepam (Ativan Injection -) 0.5 mg IVPUSH Q6H PRN PRN Reason: ANXIETY Last Admin: 11/10/17 22:23 Dose: 0.5 mg Metoclopramide HCl (Reglan Injection -) 10 mg IVPUSH Q6H-IV RANDI Metoprolol Tartrate (Lopressor Injection -) 5 mg IVPUSH Q4H PRN PRN Reason: TACHYCARDIA Mupirocin (Bactroban Ointment (For Decolonization) -) 1 applic NS BID [facility] Stop: 11/16/17 07:59 Prochlorperazine Edisylate (Compazine Injection -) 2.5 mg IVPB Q3H PRN PRN Reason: NAUSEA AND/OR VOMITING Saliva Substitute (Mouthk[place] Solution -) 1 applic MM DAILY [facility] Tiotropium [place] (Spiriva -) 1 puff IH DAILY RANDI Vital Signs Period Temp Pulse Resp BP Sys/[place] Pulse Ox Last 24 Hr 98.1 F-99 F 99-116 16-20 112-162/70-90 94-98 Intake & Output 11/08/17 11/09/17 11/10/17 11/11/17 23:59 23:59 23:59 23:59 Intake Total 1050 1310 1705 525 Output Total 501 5850 450 Balance 1050 809 -414 75 Weight 54.93 kg 53.932 kg Exam: General: awake, alert w/ co nausea HEENT: PERRL Pulm: diminished in bases CV: sinus tach Abd: tedner to palp, distended, hypoactive Neuro: awake and alert CBCD WBC 24.0 K/mm3 (4.0-10.0) H D 11/11/17 05:45 RBC 5.19 M/mm3 (3.60-5.2) 11/11/17 05:45 Hgb 13.8 GM/dL (10.7-15.3) 11/11/17 05:45 Hct 43.9 % (32.4-45.2) 11/11/17 05:45 MCV 84.6 fl (80-96) 11/11/17 05:45 MCHC 31.5 g/dl (32.0-36.0) L 11/11/17 05:45 RDW 18.3 % (11.6-15.6) H 11/11/17 05:45 Plt Count 625 K/MM3 (134-434) H D 11/11/17 05:45 MPV 9.4 fl (7.5-11.1) D 11/11/17 05:45 CMP Sodium 143 mmol/L (136-145) 11/11/17 05:45 Potassium 4.9 mmol/L (3.5-5.1) 11/11/17 05:45 Chloride 98 mmol/L (98-107) 11/11/17 05:45 Carbon Dioxide 41 mmol/L (21-32) H 11/11/17 05:45 Anion Gap 4 (8-16) L 11/11/17 05:45 BUN 102 mg/dL (7-18) H 11/11/17 05:45 Creatinine 3.4 mg/dL (0.55-1.02) H 11/11/17 05:45 Creat Clearance w eGFR 13.47 (>60) 11/11/17 05:45 Random Glucose 104 mg/dL (74-106) 11/11/17 05:45 Calcium 8.1 mg/dL (8.5-10.1) L 11/11/17 05:45 Total Bilirubin 0.4 mg/dL (0.2-1.0) D 11/11/17 05:45 AST 17 U/L (15-37) 11/11/17 05:45 ALT 21 U/L (12-78) 11/11/17 05:45 Alkaline Phosphatase 71 U/L (45-117) 11/11/17 05:45 Total Protein 5.7 g/dl (6.4-8.2) L 11/11/17 05:45 Albumin 2.8 g/dl (3.4-5.0) L 11/11/17 05:45 CARDIAC ENZYMES Creatine Kinase 34 IU/L (26-192) 11/09/17 20:20 Troponin I 0.04 ng/ml (0.00-0.05) 11/09/17 20:20 CTAP: illeus vs SBO CXR: No CXR today Problem List - Problems Current Active Problems Acute on chronic respiratory failure with hypoxia and hypercapnia (Acute) [id number] kidney injury (Acute) Closed fracture of lumbar vertebral body (Acute) Compression fracture of lumbar vertebra (Acute) SBO, Ileus (Acute) Paroxysmal supraventricular tachycardia (Acute) Assessment/Plan ASSESS: -Steroid and home O2 dependent COPD -Acute on chronic hypercapneic, hypoxic respiratory fail in the setting of RLL PNA -PSVT->SR -MPD -Acute on CKD renal Fail -SBO/ileus w/ Nausea and emesis referable to narcotics -L1 compression fracture PLAN: -NGT to LWS -NPO for illeus vs SBO, surgery aware currently medical management -Zofran prn -NIPPV as needed, caution given nausea -O2 for sat >88% -BD TX -Steroids taper off (pred 20mg at home) -ABX for aspiration pna -IVF -Trend BUN/Cr -Renal dose medications -VTE prophylaxis Boerem ACNP Pulm/CCM
[2017-11-11] MEDS ORDERED: METOCLOPRAMIDE HCL INJECTION 10 MG/2 ML VIAL IVPUSH SCH (09:00)
[2017-11-11] MEDS: TIOTROPIUM BROMIDE 18 MCG CAPSULES IH SCH (10:00)
[2017-11-11] MEDS: LYTES/YERBA SANTA 240 ML BOTTLE MM SCH (10:00)
[2017-11-11] MEDS: AMPICILLIN NA/SULBACTAM NA 1.5 GM in SODIUM CHLORIDE 100 ML IVPB SCH ×2 (10:00→21:58)
[2017-11-11] MEDS: ASPIRIN 300 MG SUPP.RECT RC SCH (10:00)
[2017-11-11] MEDS ORDERED: PT OWN MED DRAWER 7, Y5N ONE (12:43)
--- NOTE | 2017-11-11 13:19 | PN ---
Progress Note (short form) - Note Progress Note: Problems 1. CKD with acute component 2. hyperkalemia - likely in part pseudohyperkalemia 3. copd exacerbation 4. essential thrombocytosis 5. htn 6. anxiety 7. diverticulosis 8. hemorrhoids 9. leukocytosis Current Medications Acetaminophen (Ofirmev Injection -) 1,000 mg IVPB Q6H PRN PRN Reason: PAIN LEVEL 6-10 Last Admin: 11/11/17 05:53 Dose: 1,000 mg Acetaminophen (Tylenol -) 650 mg PO Q6H PRN PRN Reason: FEVER Albuterol Sulfate (Ventolin 0.083% Nebulizer Soln -) 1 amp NEB Q4H PRN PRN Reason: SHORT OF BREATH/WHEEZING Anagrelide HCl (Agrylin) 1 mg PO TID [facility] Last Admin: 11/11/17 06:45 Dose: Not Given Aspirin (Asa -) 150 mg RC DAILY [facility] Last Admin: 11/10/17 17:17 Dose: 150 mg Chlorhexidine Gluconate (Hibiclens For Decolonization -) 1 applic TP HS [facility] Heparin Sodium (Porcine) (Heparin -) 5,000 unit SQ TID [facility] Dextrose/Sodium Chloride (D5-Ns -) 1,000 mls @ 75 mls/hr IV ASDIR [facility] Last Admin: 11/11/17 02:32 Dose: 75 mls/hr Ampicillin Sodium/Sulbactam (Sodium 1.5 gm/ Sodium Chloride) 100 mls @ 200 mls/ hr IVPB BID [facility] Lorazepam (Ativan Injection -) 0.5 mg IVPUSH Q6H PRN PRN Reason: ANXIETY Last Admin: 11/10/17 22:23 Dose: 0.5 mg Metoclopramide HCl (Reglan Injection -) 10 mg IVPUSH Q6H-IV RANDI Metoprolol Tartrate (Lopressor Injection -) 5 mg IVPUSH Q4H PRN PRN Reason: TACHYCARDIA Mupirocin (Bactroban Ointment (For Decolonization) -) 1 applic NS BID [facility] Stop: 11/16/17 07:59 Prochlorperazine Edisylate (Compazine Injection -) 2.5 mg IVPB Q3H PRN PRN Reason: NAUSEA AND/OR VOMITING Saliva Substitute ([place]outhk[place] Solution -) 1 applic MM DAILY RANDI Tiotropium [place] (Spiriva -) 1 puff IH DAILY RANDI Last Vital Signs Temp Pulse Resp BP Pulse Ox 98.1 F 102 H 20 148/86 94 L 11/11/17 06:00 11/11/17 11:24 11/11/17 06:00 11/11/17 06:00 11/11/17 11:24 lungs clear heart reg abd soft nontender ext no edema CBC, BMP 11/11/17 05:45 11/11/17 05:45 IMP- aisha/ckd- renal improving from creat 3.6 to 3.4 copd htn Plan - monitor renal function and electrolytes follow k
[2017-11-11] MEDS: PROCHLORPERAZINE INJECTION 10 MG/2 ML VIAL IVPB PRN (14:09)
--- NOTE | 2017-11-11 14:27 | CONSULT ---
Consult Consult Specialty:: General Surgery Referred by:: Dr. Limon/ICU team Reason for Consultation:: SBO - History of Present Illness Chief Complaint: abdominal pain, distention, constipation History of Present Illness: 67yo F with multiple medical problems and surgical history significant for sigmoid stricture s/p resection ~1yr ago, left adrenalectomy for adenoma, c- section, who was admitted last week with back pain and found to have L1 compression fracture (nonoperative - brace only). She is on chronic steroids for O2-dependent COPD, and Agrylin for myeloproliferative disorder and thrombocytosis. She also has IBS with constipation and has been on Linzess for the last year at home. She does not tend to have diarrhea with the medication, but does usually move her bowels more regularly. She has not currently had a BM since last Monday. Her back pain was initially treated with narcotics here in the hospital, and she had nausea treated with Zofran. 2d ago, she had an episode of SVT, and was transferred to ICU. Yesterday, she had a small emesis early am after Ativan, and progressive abdominal distention had been noted. NGT was inserted with 3L bilious output, and CT was done showing dilated, fluid- filled small bowel loops suggestive of obstruction, though severe ileus cannot be excluded. There is some stool in colon, but no evidence of impaction. GI has been consulted, and Surgery was also asked to evaluate. Pt seen and examined in bed in ICU, with daughter and son at bedside. She is resting, but wakes easily. She denies abdominal pain or back pain at this time, but would like more ativan. She has had some nausea despite the NGT, though per children, her abdomen is smaller than it was. She has had 6L+ out the NGT thus far, including at least 500ml after adjustment of the tube during exam. Output is bilious/green. - History Source History Provided By: Patient, Family Member (daughter/son at bedside), Medical Record Limitations to Obtaining History: No Limitations - Past Medical History Cardio/Vascular: Yes: HTN Pulmonary: Yes: COPD, O2 Dependent (2-3L at home) Gastrointestinal: Yes: Constipation, Diverticulitis (with sigmoid stricture requiring resection), Diverticulosis, Irritable Bowel Disease (w/constipation), Other Hepatobiliary: Yes: Other (HAD WORKUP FOR PORTAL HTN WHICH WAS NEGATIVE ( INCLUDED PORTAL PRESSURE MEASUREMENTS)) Renal/: Yes: Renal Inusuff Heme/Onc: Yes: Myeloproliferative Synd, Other (thrombocytosis). No: Thrombocytopenia Psych: Yes: Anxiety Musculoskeletal: Yes: Other (acute L1 compression fracture) Endocrine: Yes: Other (adrenal adenoma) - Past Surgical History Past Surgical History: Yes: Colectomy (partial sigmoid for stricture), Colonoscopy, , Upper Endoscopy Additional Surgical History: left adrenalectomy for adenoma - Alcohol/Substance Use Hx Alcohol Use: No History of Substance Use: reports: None - Smoking History Smoking history: Former smoker Have you smoked in the past 12 months: No If you are a former smoker, when did you quit?: 2010 - Social History Usual Living Arrangement: Alone (lives alone in house with 2 steps to enter and 12 inside; previously Independent in ADLs without AD) ADL: Independent History of Recent Travel: No Home Medications - Allergies Allergies/Adverse Reactions: Allergies Allergy/AdvReac Type Severity Reaction Status Date / Time Sulfa (Sulfonamide Allergy Severe Rash Verified 11/06/17 10:08 Antibiotics) - Home Medications Home Medications: Ambulatory Orders Albuterol Sulfate [Proair Hfa -] 1 - 2 inh PO PRN PRN 01/28/14 Alprazolam [Xanax] 0.25 mg PO PRN PRN 07/21/16 Anagrelide HCl [Agrylin -] 0.5 mg PO TID 11/14/16 Linaclotide [Linzess] 72 mcg PO Q2D 02/06/17 Albuterol 0.083% Nebulizer [place] [Ventolin 0.083% Nebulizer Soln -] 1 amp NEB Q4H PRN amp 06/24/17 Aspirin [ASA -] 81 mg PO DAILY tab.chew 06/24/17 Hydroxyurea [Hydrea 500Mg Capsule -] 500 mg PO MoWeFr@1000 capsule 06/24/17 Allopurinol [Zyloprim -] 200 mg PO DAILY 10/25/17 Roflumilast [Daliresp -] 500 mcg PO Q2D 10/25/17 Tiotropium [place] [Spiriva] 1 inh IH DAILY 10/25/17 traZODone HCL [Desyrel -] 100 mg PO HS 10/25/17 Oxycodone HCl/Acetaminophen [Percocet 5-325 mg Tablet] 1 - 2 tab PO Q6H PRN #20 tab MDD 8 tabs 10/31/17 Prednisone [Deltasone] 20 mg PO DAILY 11/08/17 Family Disease History - Family Disease History Family History: Unremarkable (noncontributory) Review of Systems - Review of Systems Constitutional: denies: Chills, Fever Eyes: denies: Blurred Vision, Recent Change in Vision HENT: denies: Difficult Swallowing, Throat Pain Neck: denies: Swollen Glands, Tenderness Cardiovascular: denies: Chest Pain, Palpitations Respiratory: denies: Cough, SOB Gastrointestinal: reports: Abdominal Pain (left lower), Bloating, Constipation, Nausea, Vomiting. denies: Diarrhea Genitourinary: denies: Burning, Dysuria Musculoskeletal: reports: Back Pain (not so much anymore). denies: Joint Swelling Integumentary: denies: Change in Color, Rash Neurological: denies: Dizziness, Headache Psychiatric: reports: Anxiety. denies: Depression Physical Exam Vital Signs: Vital Signs Temperature 98.1 F 11/11/17 06:00 Pulse Rate 102 H 11/11/17 11:24 Respiratory Rate 20 11/11/17 06:00 Blood Pressure 148/86 11/11/17 06:00 O2 Sat by Pulse Oximetry (%) 94 L 11/11/17 11:24 Constitutional: Yes: No Distress, Calm (sleeping at first, asked for ativan), Thin Eyes: Yes: Conjunctiva Clear, EOM Intact HENT: Yes: Atraumatic, Normocephalic, Other (NGT in place - advanced from 45 to 55cm at nares with at least 500ml more dark green output) Neck: Yes: Supple, Trachea Midline Cardiovascular: Yes: Tachycardia. No: Pulse Irregular (occasional premature beats, though), Murmur Respiratory: Yes: Regular, Accessory Muscle Use, Cough (occasional, slight, dry) , On Nasal O2 (3L), Wheezes (faint inspiratory bilaterally) Gastrointestinal: Yes: Soft, Distention (softly, tympanic - little less after more drainage from NG), Hypoactive Bowel Sounds (absent), Other (healed lower midline and left-sided abdominal scars). No: Tenderness ...Rectal Exam: Yes: Deferred Renal/: Yes: Tillman Present. No: Hematuria Musculoskeletal: No: Back Pain (denies - not directly palpated), Joint Stiffness , Joint Swelling Extremities: No: Cool, Cyanosis Edema: No Peripheral Pulses WNL: Yes Integumentary: No: Jaundice, Rash Neurological: Yes: Alert (once awake, somewhat drowsy), Oriented Psychiatric: Yes: Alert, Oriented Labs: CBC, BMP 11/11/17 05:45 11/11/17 05:45 CMP Sodium 143 mmol/L (136-145) 11/11/17 05:45 Potassium 4.9 mmol/L (3.5-5.1) 11/11/17 05:45 Plasma Potassium mmol/L (3.5-5.1) 11/10/17 12:40 Chloride 98 mmol/L (98-107) 11/11/17 05:45 Carbon Dioxide 41 mmol/L (21-32) H 11/11/17 05:45 Anion Gap 4 (8-16) L 11/11/17 05:45 BUN 102 mg/dL (7-18) H 11/11/17 05:45 Creatinine 3.4 mg/dL (0.55-1.02) H 11/11/17 05:45 Creat Clearance w eGFR 13.47 (>60) 11/11/17 05:45 Random Glucose 104 mg/dL (74-106) 11/11/17 05:45 Lactic Acid 1.2 mmol/L (0.0-2.0) 11/09/17 20:20 Calcium 8.1 mg/dL (8.5-10.1) L 11/11/17 05:45 Magnesium 2.3 mg/dL (1.8-2.4) 11/09/17 11:35 Total Bilirubin 0.4 mg/dL (0.2-1.0) D 11/11/17 05:45 AST 17 U/L (15-37) 11/11/17 05:45 ALT 21 U/L (12-78) 11/11/17 05:45 Alkaline Phosphatase 71 U/L (45-117) 11/11/17 05:45 Ammonia 18.9 umol/L (11-32) 11/09/17 20:20 Creatine Kinase 34 IU/L (26-192) 11/09/17 20:20 Troponin I 0.04 ng/ml (0.00-0.05) 11/09/17 20:20 Total Protein 5.7 g/dl (6.4-8.2) L 11/11/17 05:45 Albumin 2.8 g/dl (3.4-5.0) L 11/11/17 05:45 BUN/Cr elevated but Cr down from 3.6 wbc down from 30s plts up but stable Urine Test Results Urine Color Dkyellow 11/09/17 15:00 Urine Appearance Slcloudy 11/09/17 15:00 Urine pH 5.0 (5.0-8.0) 11/09/17 15:00 Ur Specific [place] 1.018 (1.001-1.035) 11/09/17 15:00 Urine Protein 2+ (NEGATIVE) H 11/09/17 15:00 Urine Glucose (UA) Negative (NEGATIVE) 11/09/17 15:00 Urine Ketones Negative (NEGATIVE) 11/09/17 15:00 Urine Blood Negative (NEGATIVE) 11/09/17 15:00 Urine Nitrite Negative (NEGATIVE) 11/09/17 15:00 Urine Bilirubin Negative (<2.0 mg/dL) 11/09/17 15:00 Ur Leukocyte Esterase Negative (NEGATIVE) 11/09/17 15:00 Ur Epithelial Cells Rare /HPF (FEW) 11/09/17 15:00 Urine Bacteria Rare /hpf (NONE SEEN) 11/07/17 06:15 Urine Mucus Rare 11/09/17 15:00 Imaging - Results X-ray: Pending (in am) Cat Scan: Report Reviewed, Image Reviewed (images personally reviewed - dilated , fluid-filled small bowel loops; anastomosis visible in distal colon/ rectosigmoid region; no free air) Problem List - Problems (1) Ileus Code(s): K56.7 - ILEUS, UNSPECIFIED (2) Small bowel obstruction due to adhesions Assessment/Plan: may be multifactorial - given baseline tendency to constipation, recent opioid use, and h/o abdominal surgery could be partly adhesive, partly opioid-related may also have had ileus related to acute L1 compression fracture agree with NGT to LCWS NPO - NO MEDS or anything via tube for now IVF - pt feeling thirsty with good UOP, may need to increase fluids some pain meds prn - avoid narcotics and NSAIDs as able IV Tylenol ordered AXR ordered for am - will review when NG output decreases, will consider PO contrast via tube and serial imaging to follow through GI on board - consider trying Relistor? would not use Reglan discussed potential need for surgical intervention with son and daughter, but agree with conservative measures for now pt is high-risk for surgery given her comorbidities including pulmonary and immunocompromised status if ok with cardiology, consider holding aspirin for now until possibility of need for OR has passed will follow with you This patient is critically ill. Time spent reviewing chart, examining patient, talking with providers and/or family and documentation is 45 minutes. Thank you for the opportunity to participate in the care of this patient. Code(s): K56.50 - INTESTNL ADHESIONS, UNSP TO PARTIAL VERSUS COMPLETE OBST (3) Constipation Code(s): K59.00 - CONSTIPATION, UNSPECIFIED Qualifiers: Constipation type: drug induced constipation Qualified Code(s): K59.03 - Drug induced constipation (4) Irritable bowel syndrome with constipation Code(s): K58.1 - IRRITABLE BOWEL SYNDROME WITH CONSTIPATION (5) Compression fracture of lumbar vertebra Assessment/Plan: TLSO brace when up as per neuro/spine Code(s): S32.000A - WEDGE COMPRESSION FRACTURE OF UNSP LUMBAR VERTEBRA, INIT Qualifiers: Encounter type: initial encounter Lumbar vertebra fracture level: L1 Fracture type: closed Qualified Code(s): S32.010A - Wedge compression fracture of first lumbar vertebra, initial encounter for closed fracture (6) [id number] kidney injury Assessment/Plan: renal on board, Cr improving may need more fluids given thirsty status and volume of NG output monitor lytes closely Code(s): N17.9 - ACUTE KIDNEY FAILURE, UNSPECIFIED; N18.9 - CHRONIC KIDNEY DISEASE, UNSPECIFIED Qualifiers: Acute renal failure type: unspecified Chronic kidney disease stage: unspecified stage Qualified Code(s): N17.9 - Acute kidney failure, unspecified ; N18.9 - Chronic kidney disease, unspecified (7) Paroxysmal supraventricular tachycardia Assessment/Plan: cardiology on board seems to be improved/resolved Code(s): I47.1 - SUPRAVENTRICULAR TACHYCARDIA (8) Abdominal pain Code(s): R10.9 - UNSPECIFIED ABDOMINAL PAIN Qualifiers: Abdominal location: lower abdomen, unspecified Qualified Code(s): R10.30 - Lower abdominal pain, unspecified (9) Anxiety Code(s): F41.9 - ANXIETY DISORDER, UNSPECIFIED (10) COPD (chronic obstructive pulmonary disease) Assessment/Plan: on nasal O2 would avoid bipap to avoid gastric distention per ICU, low threshold for intubation Code(s): J44.9 - CHRONIC OBSTRUCTIVE PULMONARY DISEASE, UNSPECIFIED Qualifiers: COPD type: unspecified COPD Qualified Code(s): J44.9 - Chronic obstructive pulmonary disease, unspecified (11) Essential thrombocytosis Code(s): D47.3 - ESSENTIAL (HEMORRHAGIC) THROMBOCYTHEMIA (12) Myeloproliferative disorder Code(s): D47.1 - CHRONIC MYELOPROLIFERATIVE DISEASE
--- NOTE | 2017-11-11 17:34 | PN ---
Progress Note, Physician History of Present Illness: CT report noted. NGT continues to drain bilious material. The pt is AAO x 3. Mild respiratory distress. - Current Medication List Current Medications: Active Medications Acetaminophen (Ofirmev Injection -) 1,000 mg IVPB Q6H PRN PRN Reason: PAIN LEVEL 6-10 Last Admin: 11/11/17 05:53 Dose: 1,000 mg Albuterol Sulfate (Ventolin 0.083% Nebulizer Soln -) 1 amp NEB Q4H PRN PRN Reason: SHORT OF BREATH/WHEEZING Anagrelide HCl (Agrylin) 1 mg PO TID [facility] Last Admin: 11/11/17 14:31 Dose: Not Given Aspirin (Asa -) 150 mg RC DAILY [facility] Last Admin: 11/11/17 10:00 Dose: Not Given Chlorhexidine Gluconate (Hibiclens For Decolonization -) 1 applic TP HS [facility] Heparin Sodium (Porcine) (Heparin -) 5,000 unit SQ TID [facility] Dextrose/Sodium Chloride (D5-Ns -) 1,000 mls @ 75 mls/hr IV ASDIR [facility] Last Admin: 11/11/17 02:32 Dose: 75 mls/hr Ampicillin Sodium/Sulbactam (Sodium 1.5 gm/ Sodium Chloride) 100 mls @ 200 mls/ hr IVPB BID [facility] Last Admin: 11/11/17 10:00 Dose: 200 mls/hr Lorazepam (Ativan Injection -) 0.5 mg IVPUSH Q6H PRN PRN Reason: ANXIETY Last Admin: 11/11/17 14:12 Dose: 0.5 mg Metoprolol Tartrate (Lopressor Injection -) 5 mg IVPUSH Q4H PRN PRN Reason: TACHYCARDIA Mupirocin (Bactroban Ointment (For Decolonization) -) 1 applic NS BID [facility] Stop: 11/16/17 07:59 Prochlorperazine Edisylate (Compazine Injection -) 2.5 mg IVPB Q3H PRN PRN Reason: NAUSEA AND/OR VOMITING Last Admin: 11/11/17 14:09 Dose: 2.5 mg Saliva Substitute ([place] Solution -) 1 applic MM DAILY [facility] Tiotropium [place] (Spiriva -) 1 puff IH DAILY [facility] Last Admin: 11/11/17 10:00 Dose: Not Given - Objective Vital Signs: Vital Signs Temperature 98.1 F 11/11/17 06:00 Pulse Rate 102 H 11/11/17 11:24 Respiratory Rate 20 11/11/17 06:00 Blood Pressure 148/86 11/11/17 06:00 O2 Sat by Pulse Oximetry (%) 94 L 11/11/17 15:31 Constitutional: Yes: Calm, Mild Distress Gastrointestinal: Yes: Soft, Distention. No: Tenderness Neurological: Yes: Alert, Oriented Labs: CBC, BMP 11/11/17 05:45 11/11/17 05:45 Laboratory Last Values WBC 24.0 K/mm3 (4.0-10.0) H D 11/11/17 05:45 RBC 5.19 M/mm3 (3.60-5.2) 11/11/17 05:45 Hgb 13.8 GM/dL (10.7-15.3) 11/11/17 05:45 Hct 43.9 % (32.4-45.2) 11/11/17 05:45 MCV 84.6 fl (80-96) 11/11/17 05:45 MCH 26.6 pg (25.7-33.7) 11/11/17 05:45 MCHC 31.5 g/dl (32.0-36.0) L 11/11/17 05:45 RDW 18.3 % (11.6-15.6) H 11/11/17 05:45 Plt Count 625 K/MM3 (134-434) H D 11/11/17 05:45 MPV 9.4 fl (7.5-11.1) D 11/11/17 05:45 Absolute Neuts (auto) 34.1 # 11/10/17 05:50 Total Counted 100 11/09/17 20:20 Neutrophils % 96.9 % (42.8-82.8) H 11/10/17 05:50 Neutrophils % (Manual) 85.7 % (42.8-82.8) H 11/10/17 05:50 Band Neutrophils % 10.2 % 11/10/17 05:50 Lymphocytes % 1.0 % (8-40) L D 11/10/17 05:50 Lymphocytes % (Manual) 0.0 % (8-40) L 11/10/17 05:50 Monocytes % 1.8 % (3.8-10.2) L 11/10/17 05:50 Monocytes % (Manual) 4 % (3.8-10.2) 11/10/17 05:50 Eosinophils % 0.1 % (0-4.5) 11/10/17 05:50 Eosinophils % (Manual) 0.0 % (0-4.5) 11/10/17 05:50 Basophils % 0.2 % (0-2.0) 11/10/17 05:50 Basophils % (Manual) 0.0 % (0-2.0) 11/10/17 05:50 Myelocytes % (Man) 0 % (0-2) 11/10/17 05:50 Promyelocytes % (Man) 0 % (0-2) 11/10/17 05:50 Blast Cells % (Manual) 0 % (0-0) 11/10/17 05:50 Nucleated RBC % 0 % (0-0) 11/10/17 05:50 Metamyelocytes 0 % (0-2) 11/10/17 05:50 Hypochromia 1+ 11/09/17 20:20 Platelet Estimate Increased 11/10/17 05:50 Platelet Comment No clumping noted 11/09/17 20:20 Polychromasia 2+ 11/10/17 05:50 Anisocytosis 1+ 11/10/17 05:50 Microcytosis 2+ 11/10/17 05:50 Macrocytosis 1+ 11/09/17 20:20 Tear Drop Cells 1+ 11/10/17 05:50 Ovalocytes 1+ 11/09/17 08:04 Anticoagulation Therapy No Result Required. 11/10/17 05:10 Puncture Site Left radial 11/10/17 05:10 ABG pH 7.37 (7.35-7.45) 11/10/17 05:10 ABG pCO2 at Pt Temp 53.4 mmHg (35-45) H 11/10/17 05:10 ABG pO2 at Pt Temp 82.7 mmHg (80-100) D 11/10/17 05:10 ABG HCO3 30.0 meq/L (22-26) H 11/10/17 05:10 ABG O2 Sat (Measured) 95.9 % (90-98.9) 11/10/17 05:10 ABG O2 Content 19.6 % vol (15-22) 11/10/17 05:10 ABG Base Excess 3.8 meq/l (-2-2) H 11/10/17 05:10 Hemanth Test Positive 11/10/17 05:10 O2 Delivery Device Bipap 11/10/17 05:10 Oxygen Flow Rate 40% 11/10/17 05:10 Vent Mode No Result Required. 11/10/17 05:10 Vent Rate No Result Required. 11/09/17 16:40 Mechanical Rate No Result Required. 11/10/17 05:10 PEEP 5.0 cmH2O 11/10/17 05:10 Pressure Support Vent No Result Required. 11/09/17 16:40 Sodium 143 mmol/L (136-145) 11/11/17 05:45 Potassium 4.9 mmol/L (3.5-5.1) 11/11/17 05:45 Plasma Potassium mmol/L (3.5-5.1) 11/10/17 12:40 Chloride 98 mmol/L (98-107) 11/11/17 05:45 Carbon Dioxide 41 mmol/L (21-32) H 11/11/17 05:45 Anion Gap 4 (8-16) L 11/11/17 05:45 BUN 102 mg/dL (7-18) H 11/11/17 05:45 Creatinine 3.4 mg/dL (0.55-1.02) H 11/11/17 05:45 Creat Clearance w eGFR 13.47 (>60) 11/11/17 05:45 Random Glucose 104 mg/dL (74-106) 11/11/17 05:45 Lactic Acid 1.2 mmol/L (0.0-2.0) 11/09/17 20:20 Calcium 8.1 mg/dL (8.5-10.1) L 11/11/17 05:45 Magnesium 2.3 mg/dL (1.8-2.4) 11/09/17 11:35 Total Bilirubin 0.4 mg/dL (0.2-1.0) D 11/11/17 05:45 AST 17 U/L (15-37) 11/11/17 05:45 ALT 21 U/L (12-78) 11/11/17 05:45 Alkaline Phosphatase 71 U/L (45-117) 11/11/17 05:45 Ammonia 18.9 umol/L (11-32) 11/09/17 20:20 Creatine Kinase 34 IU/L (26-192) 11/09/17 20:20 Troponin I 0.04 ng/ml (0.00-0.05) 11/09/17 20:20 Total Protein 5.7 g/dl (6.4-8.2) L 11/11/17 05:45 Albumin 2.8 g/dl (3.4-5.0) L 11/11/17 05:45 Urine Color Dkyellow 11/09/17 15:00 Urine Appearance Slcloudy 11/09/17 15:00 Urine pH 5.0 (5.0-8.0) 11/09/17 15:00 Ur Specific [place] 1.018 (1.001-1.035) 11/09/17 15:00 Urine Protein 2+ (NEGATIVE) H 11/09/17 15:00 Urine Glucose (UA) Negative (NEGATIVE) 11/09/17 15:00 Urine Ketones Negative (NEGATIVE) 11/09/17 15:00 Urine Blood Negative (NEGATIVE) 11/09/17 15:00 Urine Nitrite Negative (NEGATIVE) 11/09/17 15:00 Urine Bilirubin Negative (<2.0 mg/dL) 11/09/17 15:00 Urine Urobilinogen Negative mg/dL (0.2-1.0) 11/09/17 15:00 Ur Leukocyte Esterase Negative (NEGATIVE) 11/09/17 15:00 Urine WBC (Auto) 1 /hpf (3-5) 11/09/17 15:00 Urine RBC (Auto) 1 /hpf (0-3) 11/09/17 15:00 Ur Epithelial Cells Rare /HPF (FEW) 11/09/17 15:00 Urine Bacteria Rare /hpf (NONE SEEN) 11/07/17 06:15 Urine Mucus Rare 11/09/17 15:00 Ur Random Sodium 18 MMOL/L 11/09/17 15:00 Ur Random Potassium 71.7 MMOL/L 11/09/17 15:00 Ur Random Chloride 31 MMOL/L 11/09/17 15:00 Urine Creatinine 117.0 mg/dL (20-320) 11/09/17 15:00 Stool Occult Blood Negative (NEGATIVE) 11/11/17 08:00 Problem List - Problems (1) Ileus Code(s): K56.7 - ILEUS, UNSPECIFIED (2) Acute on chronic respiratory failure with hypoxia and hypercapnia Code(s): J96.21 - ACUTE AND CHRONIC RESPIRATORY FAILURE WITH HYPOXIA; J96.22 - ACUTE AND CHRONIC RESPIRATORY FAILURE WITH HYPERCAPNIA (3) [id number] kidney injury Code(s): N17.9 - ACUTE KIDNEY FAILURE, UNSPECIFIED; N18.9 - CHRONIC KIDNEY DISEASE, UNSPECIFIED Qualifiers: Acute renal failure type: unspecified Chronic kidney disease stage: unspecified stage Qualified Code(s): N17.9 - Acute kidney failure, unspecified ; N18.9 - Chronic kidney disease, unspecified (4) Closed fracture of lumbar vertebral body Code(s): S32.009A - UNSP FRACTURE OF UNSP LUMBAR VERTEBRA, INIT FOR CLOS FX Assessment/Plan Relistor x 1, 2 tap water enemas (if the pt can be positioned). Sx evaluation noted.
--- NOTE | 2017-11-11 17:44 | EKG ---
Test Reason : Blood Pressure : / mmHG Vent. Rate : 110 BPM Atrial Rate : 110 BPM P-R Int : 112 ms QRS Dur : 070 ms QT Int : 306 ms P-R-T Axes : 086 -52 -30 degrees QTc Int : 414 ms SINUS TACHYCARDIA WITH PREMATURE SUPRAVENTRICULAR COMPLEXES AND WITH OCCASIONAL PREMATURE VENTRICULAR COMPLEXES LEFT AXIS DEVIATION VOLTAGE CRITERIA FOR LEFT VENTRICULAR HYPERTROPHY INFERIOR INFARCT , AGE UNDETERMINED ABNORMAL ECG WHEN COMPARED WITH ECG OF 10-NOV-2017 08:20, SIGNIFICANT CHANGES HAVE OCCURRED Confirmed by DRAGAN LANIER MD ([id number]) on 11/11/2017 5:43:52 PM Referred By: Rosangela POWELL Confirmed By:DRAGAN LANIER MD
[2017-11-11] MEDS: Methylnaltrexone Bromide 12 MG/0.6 ML KIT SQ ONE ×2 (18:50→19:02)
--- NOTE | 2017-11-11 19:48 | PN ---
Progress Note (short form) - Note Progress Note: pt seen and examined. events noted. feels a little better Cor: RSR, No murmurs, No gallops Lungs: decreased at bases Abd: Soft, Normal bowel sounds, No organomegaly Ext:No significant edema Last Vital Signs Temp Pulse Resp BP Pulse Ox 98.8 F 104 H 20 149/94 94 L 11/11/17 16:00 11/11/17 16:00 11/11/17 16:00 11/11/17 16:00 11/11/17 19:40 CBC, BMP 11/11/17 05:45 11/11/17 05:45 Current Medications Generic Name Dose Route Start Last Admin Trade Name Freq PRN Reason Stop Dose Admin Acetaminophen 1,000 mg 11/10/17 05:21 11/11/17 05:53 Ofirmev Injection - IVPB 1,000 mg Q6H PRN Administration PAIN LEVEL 6-10 Albuterol Sulfate 1 amp 11/11/17 07:07 Ventolin 0.083% Nebulizer Soln - NEB Q4H PRN SHORT OF BREATH/WHEEZING Anagrelide HCl 1 mg 11/10/17 14:00 11/11/17 14:31 Agrylin PO Not Given TID RANDI Chlorhexidine Gluconate 1 applic 11/11/17 07:07 11/11/17 08:00 Hibiclens For Decolonization - TP 1 applic HS RANDI Administration Heparin Sodium (Porcine) 5,000 unit 11/11/17 14:00 11/11/17 16:00 Heparin - SQ 5,000 unit TID RANDI Administration Dextrose/Sodium Chloride 1,000 mls @ 75 mls/hr 11/10/17 23:15 11/11/17 02:32 D5-Ns - IV 75 mls/hr ASDIR RANDI Administration Ampicillin Sodium/Sulbactam 100 mls @ 200 mls/hr 11/11/17 10:00 11/11/17 10: 00 Sodium 1.5 gm/ Sodium Chloride IVPB 200 mls/hr BID RANDI Administration Lorazepam 0.5 mg 11/10/17 08:34 11/11/17 14:12 Ativan Injection - IVPUSH 0.5 mg Q6H PRN Administration ANXIETY Metoprolol Tartrate 5 mg 11/10/17 08:34 Lopressor Injection - IVPUSH Q4H PRN TACHYCARDIA Mupirocin 1 applic 11/11/17 08:00 11/11/17 08:00 Bactroban Ointment (For Decolonization) - NS 11/16/17 07:59 1 applic BID RANDI Administration Prochlorperazine Edisylate 2.5 mg 11/11/17 07:07 11/11/17 14:09 Compazine Injection - IVPB 2.5 mg Q3H PRN Administration NAUSEA AND/OR VOMITING Saliva Substitute 1 applic 11/10/17 16:15 11/11/17 10:00 [place]outh[place] Solution - MM Not Given DAILY RANDI Tiotropium [place] 1 puff 11/11/17 10:00 11/11/17 10:00 Spiriva - IH Not Given DAILY RANDI A/P Aspiration--on abx Ileus-- GI and Surgical f/u noted. L1 Burst fracture-- awaiting TLSO brace. continues to have pain, awaiting pain mgmt recs Advanced COPD- Pulm f.u noted MPD -c/w, agrylin and hydrea. Will hold ASA(added for her MPD), in light of the need for surgery. on SQH CBC parameters acceptable renal f.u
[2017-11-11] MEDS ORDERED: LACTATED RINGERS SOLUTION 1,000 ML/1,000 ML INFUS.BAG IV ONE (21:46)
[2017-11-11] MEDS ORDERED: DEXTROSE 5%-NORMAL SALINE 1,000 ML IV ONE (21:48)
[2017-11-11] MEDS ORDERED: DEXTROSE 5%-NORMAL SALINE 1,000 ML IV SCH (21:48)
[2017-11-11] MEDS ORDERED: AMPICILLIN NA/SULBACTAM NA 1.5 GM VIAL ONE (21:50)
[2017-11-11] MEDS ORDERED: SODIUM CHLORIDE 100 ML IVPB ONE (21:50)
[2017-11-11] MEDS ORDERED: LIDOCAINE PATCH REMOVAL MC SCH (22:00)
[2017-11-12] MEDS: LORazepam 2 MG/ML SDV VIAL IVPUSH PRN ×3 (02:28→21:19)
[2017-11-12] MEDS: ANAGRELIDE HCL 1 MG PO SCH (05:58)
[2017-11-12] MEDS: HEPARIN NA (PORCINE) 5,000 UNITS/ML 1ML VIAL SQ SCH ×3 (05:58→21:21)
[2017-11-12] MEDS: ACETAMINOPHEN 1000 MG/100 ML VIAL (NON FORMULARY) IVPB PRN ×2 (05:58→12:04)
[2017-11-12 06:56] LABS: ALBUMIN 2.6 g/dl (3.4-5.0); ANION GAP 4 (8-16); BLOOD UREA NITROGEN 88 mg/dL (7-18); CHLORIDE 101 mmol/L (98-107); CO2 44 mmol/L (21-32); GLUCOSE,RANDOM 117 mg/dL (74-106); POTASSIUM 4.5 mmol/L (3.5-5.1); SODIUM 149 mmol/L (136-145)
[2017-11-12 07:01] LABS: ALK PHOS 65 U/L (45-117); BILIRUBIN,TOTAL 0.4 mg/dL (0.2-1.0); CREATININE 2.2 mg/dL (0.55-1.02); SGOT/AST 13 U/L (15-37); SGPT/ALT 17 U/L (12-78); TOT PROT 5.5 g/dl (6.4-8.2)
[2017-11-12 07:03] LABS: BASO % 0.5 % (0-2.0); EOS % 1.1 % (0-4.5); HEMATOCRIT 43.9 % (32.4-45.2); HEMOGLOBIN 13.4 GM/dL (10.7-15.3); LYMPH % 2.9 % (8-40); MCH 26.4 pg (25.7-33.7); MCHC 30.6 g/dl (32.0-36.0); MEAN CELL VOLUME 86.3 fl (80-96); MEAN PLT VOLUME 10.9 fl (7.5-11.1); MONO % 3.7 % (3.8-10.2); NEUT % 91.8 % (42.8-82.8); PLATELET COUNT 560 K/MM3 (134-434); RBC 5.08 M/mm3 (3.60-5.2); RDW 18.5 % (11.6-15.6); WHITE BLOOD COUNT 20.8 K/mm3 (4.0-10.0)
--- NOTE | 2017-11-12 07:44 | PN ---
Teaching Attending Note Name of Resident: Tyrell Thompson ATTENDING PHYSICIAN STATEMENT I saw and evaluated the patient. I reviewed the resident's note and discussed the case with the resident. I agree with the resident's findings and plan as documented. SUBJECTIVE:continues to feel nauseated but has not had urge to vomit. +flatus. denies Cp, SOB, fever, chills, abdominal pain, V/C/D OBJECTIVE: Last Vital Signs Temp Pulse Resp BP Pulse Ox 98.8 F 85 22 195/95 95 11/11/17 16:00 11/12/17 06:00 11/12/17 06:00 11/12/17 06:00 11/12/17 06:00 Intake & Output 11/09/17 11/10/17 11/11/17 11/12/17 23:59 23:59 23:59 23:59 Intake Total 1310 1705 2750 875 Output Total 501 5850 3950 1400 Balance 809 -4145 -1200 -525 Weight 121 lb 1.6 oz 118 lb 14.4 oz 112 lb 12.8 oz General lethargic (just received ativan) CV S1 S2 RRR no murmur/rub/gallop Lungs Coarse no wheezing/rales/rhonchi ABdomen soft +distended NT hypoactive BS Extremities no pedal edema ASSESSMENT AND PLAN: 67yo F with PMH COPD on home O2 3L NC, anxiety, myeloproliferative disorder, thrombophilia, diverticulosis s/p partial colectomy presented to the ER with low back pain 1. L1 vertebral fracture- likely steroid induced. evaluated by pain and Neurosurgery. on lidoderm patch. TLSO brace. should follow up with PMD for DEXA scan to evalute for osteopenia 2. atrial tachycardia- did not respond to adenosine. HR mostly controlled. lopressor prn. will obtain echo. previous one from 05/2017. 3. SBO- ileus seen on CT scan. NGT [id number] bile output this AM, +flatus but having copious output from NGT. AXR from this AM on my read does not appear to be improved since 2 days earlier. reslistor given yesterday with no improvement. will cont with medical management at this time. surgery on board but pt is a poor surgical candidate. plan to administer contrast via NGT if gastric output improves over the next 2 days. NPO, IVF switch to D5W, pain control with tylenol. GI and surgery on board. FOBT negative 4. Hyperkalemia- resolved 5. Elevated BP- will start standing lopressor q6H 6. acute on CKD- likely dehydration.FeNa <1%. likely dehydration. slowly improving. renal dose all medications.renal on board 7. Acute on chronic hypoxic/hypercapnic failure- due to PNA. likely aspiration. saturating well on 3L NC.pulmonary on board. 8. aspiration PNA- likely due to persistent vomiting. on usnasyn day 4. monitor vitals closely. 9. myeloproliferative disorder- leukocytosis at baseline. holding ALL oral medications at this time based on degree SBO. no asa for possible surgery. heme on board 10. thrombophilia- at baseline. 11. anxiety- xanax prn 12. DVT ppx- hep sq 13. MICU monitoring. The care of this patient involved high complexity decision making to prevent further life threatening deterioration of the patient's condition and/or to evaluate & treat vital organ system(s) failure or risk of failure. Critical care time spent in reviewing chart, evaluating patient and formulating plan - 38 minutes.
[2017-11-12] MEDS ORDERED: PT OWN MED DRAWER 7, Y5N ONE (07:48)
[2017-11-12] MEDS ORDERED: AMPICILLIN NA/SULBACTAM NA 1.5 GM VIAL ONE ×2 (07:49→21:14)
[2017-11-12] MEDS ORDERED: SODIUM CHLORIDE 100 ML IVPB ONE ×2 (07:49→21:14)
--- NOTE | 2017-11-12 07:59 | PN ---
Progress Note, Physician History of Present Illness: Pt seen and examined in bed in ICU with Dr. Baptiste of primary team. She is resting comfortably, but reports anxiety. No significant abdominal pain or back pain. Her nausea is better but still has a little. NGT put out another 1500ml since my exam yesterday per nurse (full canister), bilious. No BM yet. Had a dose of Relistor yesterday. XR done this am, chest and abdomen. - Current Medication List Current Medications: Active Medications Acetaminophen (Ofirmev Injection -) 1,000 mg IVPB Q6H PRN PRN Reason: PAIN LEVEL 6-10 Last Admin: 11/12/17 05:58 Dose: 1,000 mg Albuterol Sulfate (Ventolin 0.083% Nebulizer Soln -) 1 amp NEB Q4H PRN PRN Reason: SHORT OF BREATH/WHEEZING Anagrelide HCl (Agrylin) 1 mg PO TID [facility] Last Admin: 11/12/17 05:58 Dose: Not Given Chlorhexidine Gluconate (Hibiclens For Decolonization -) 1 applic TP HS [facility] Last Admin: 11/11/17 21:58 Dose: 1 applic Heparin Sodium (Porcine) (Heparin -) 5,000 unit SQ TID [facility] Last Admin: 11/12/17 05:58 Dose: 5,000 unit Ampicillin Sodium/Sulbactam (Sodium 1.5 gm/ Sodium Chloride) 100 mls @ 200 mls/ hr IVPB BID [facility] Last Admin: 11/11/17 21:58 Dose: 200 mls/hr Dextrose/Sodium Chloride (D5-Ns -) 1,000 mls @ 125 mls/hr IV ASDIR [facility] Last Admin: 11/12/17 05:59 Dose: 125 mls/hr Lorazepam (Ativan Injection -) 0.5 mg IVPUSH Q6H PRN PRN Reason: ANXIETY Last Admin: 11/12/17 02:28 Dose: 0.5 mg Metoprolol Tartrate (Lopressor Injection -) 5 mg IVPUSH Q4H PRN PRN Reason: TACHYCARDIA Last Admin: 11/11/17 22:00 Dose: 5 mg Mupirocin (Bactroban Ointment (For Decolonization) -) 1 applic NS BID [facility] Stop: 11/16/17 07:59 Last Admin: 11/11/17 21:58 Dose: 1 applic Prochlorperazine Edisylate (Compazine Injection -) 2.5 mg IVPB Q3H PRN PRN Reason: NAUSEA AND/OR VOMITING Last Admin: 11/11/17 14:09 Dose: 2.5 mg Saliva Substitute (Mouthk[place] Solution -) 1 applic MM DAILY [facility] Last Admin: 11/11/17 10:00 Dose: Not Given Tiotropium [place] (Spiriva -) 1 puff IH DAILY [facility] Last Admin: 11/11/17 10:00 Dose: Not Given - Objective Vital Signs: Vital Signs Temperature 98.8 F 11/11/17 16:00 Pulse Rate 85 11/12/17 06:00 Respiratory Rate 22 11/12/17 06:00 Blood Pressure 195/95 11/12/17 06:00 O2 Sat by Pulse Oximetry (%) 95 11/12/17 06:00 Constitutional: Yes: No Distress, Anxious, Thin Eyes: Yes: Conjunctiva Clear, EOM Intact HENT: Yes: Atraumatic, Normocephalic, Other (NG in place, 55 at nares. bilious output in canister) Gastrointestinal: Yes: Soft, Distention. No: Tenderness (soft, tympanic) ...Rectal Exam: Yes: Deferred Genitourinary: Yes: Tillman Present. No: Hematuria Musculoskeletal: No: Joint Stiffness, Joint Swelling Extremities: No: Cool, Cyanosis Edema: No Integumentary: No: Jaundice, Rash Neurological: Yes: Alert, Oriented Psychiatric: Yes: Alert, Oriented, Other (anxious) Labs: CBC, BMP 11/12/17 06:15 11/12/17 06:15 BUN/Cr decreasing wbc down a bit Na up some and CO2 up significantly - ....Imaging Chest X-ray: Report Reviewed, Image Reviewed X-ray: Report Reviewed, Image Reviewed (images personally reviewed - chest and abdomen; worsening changes in bilateral lung bases, very little change in gas pattern from CT; small bubble of air in RUQ visible on CXR - ? abdominal vs pulmonary) Problem List - Problems (1) Ileus Code(s): K56.7 - ILEUS, UNSPECIFIED (2) Small bowel obstruction due to adhesions Assessment/Plan: likely multifactorial - given baseline tendency to constipation, recent opioid use, and h/o abdominal surgery distal SBO partly adhesive, though constipation may be opioid-related and partially chronic may also have had ileus related to acute L1 compression fracture agree with NGT to LCWS NPO - NO MEDS or anything via tube for now IVF, UOP ok pain meds prn - avoid narcotics and NSAIDs as able IV Tylenol ordered AXR and CXR reviewed with radiologist Dr. Connor - small bubble of gas in RUQ, difficult to tell if pulm vs abd, but pt without tenderness on exam when NG output decreases, will consider PO contrast via tube and serial imaging to follow through GI on board - tried relistor yesterday with no effect yet enemas considered - may be difficult secondary to lumbar fx and NGT with high output right now if ok with cardiology, consider holding aspirin for now until possibility of need for OR has passed will follow with you This patient is critically ill. Time spent reviewing chart, examining patient, talking with providers and/or family and documentation is 35 minutes. Code(s): K56.50 - INTESTNL ADHESIONS, UNSP TO PARTIAL VERSUS COMPLETE OBST (3) Constipation Code(s): K59.00 - CONSTIPATION, UNSPECIFIED Qualifiers: Constipation type: drug induced constipation Qualified Code(s): K59.03 - Drug induced constipation (4) Irritable bowel syndrome with constipation Code(s): K58.1 - IRRITABLE BOWEL SYNDROME WITH CONSTIPATION (5) Compression fracture of lumbar vertebra Assessment/Plan: TLSO brace when up as per neuro/spine Code(s): S32.000A - WEDGE COMPRESSION FRACTURE OF UNSP LUMBAR VERTEBRA, INIT Qualifiers: Encounter type: initial encounter Lumbar vertebra fracture level: L1 Fracture type: closed Qualified Code(s): S32.010A - Wedge compression fracture of first lumbar vertebra, initial encounter for closed fracture (6) [id number] kidney injury Assessment/Plan: renal on board, BUN/Cr improving continue IVF/NPO/NGT monitor lytes closely alkalosis - CO2 high Code(s): N17.9 - ACUTE KIDNEY FAILURE, UNSPECIFIED; N18.9 - CHRONIC KIDNEY DISEASE, UNSPECIFIED Qualifiers: Acute renal failure type: unspecified Chronic kidney disease stage: unspecified stage Qualified Code(s): N17.9 - Acute kidney failure, unspecified ; N18.9 - Chronic kidney disease, unspecified (7) Paroxysmal supraventricular tachycardia Assessment/Plan: cardiology on board seems to be improved/resolved Code(s): I47.1 - SUPRAVENTRICULAR TACHYCARDIA (8) Abdominal pain Code(s): R10.9 - UNSPECIFIED ABDOMINAL PAIN Qualifiers: Abdominal location: lower abdomen, unspecified Qualified Code(s): R10.30 - Lower abdominal pain, unspecified (9) Anxiety Code(s): F41.9 - ANXIETY DISORDER, UNSPECIFIED (10) COPD (chronic obstructive pulmonary disease) Assessment/Plan: on nasal O2 would avoid bipap to avoid gastric distention per ICU, low threshold for intubation pulmonary changes at bases worse on CXR encourage pulm toilet - would get IS for patient to work with Code(s): J44.9 - CHRONIC OBSTRUCTIVE PULMONARY DISEASE, UNSPECIFIED Qualifiers: COPD type: unspecified COPD Qualified Code(s): J44.9 - Chronic obstructive pulmonary disease, unspecified (11) Essential thrombocytosis Assessment/Plan: cannot continue PO meds at this time hematology following Code(s): D47.3 - ESSENTIAL (HEMORRHAGIC) THROMBOCYTHEMIA (12) Myeloproliferative disorder Code(s): D47.1 - CHRONIC MYELOPROLIFERATIVE DISEASE
--- NOTE | 2017-11-12 08:19 | PN ---
Progress Note (short form) - Note Progress Note: Chief Complaint: Events noted, notes reviewed, complaining of nausea but severity decreased, denies any chest pain or dyspnea, sinus rhythm is noted/ sinus tachycardia resolved History of Present Illness: Seen and examined in the ICU. Events noted, notes reviewed, complaining of nausea but severity decreased, denies any chest pain or dyspnea, sinus rhythm is noted/sinus tachycardia resolved Hypertension noted, remains NPO, abdominal distention related to ileus noted and is persistent, evaluation and management is in progress As outlined in yesterday's note 12 lead EKG noted at the time of the tachycardia , probable ectopic atrial tachycardia vs. sinus tachycardia, since patient did not respond to Adenosine therapy my suspicion that there is no AV aleksandra involvement in the pathway Echocardiography dated Jun 20, 2017 revealed normal LV size (hyperdynamic) and function, trace MR, TR moderate pulmonary HTN with RVSP 47 mmHg - Current Medication List Current Medications: Current Medications Acetaminophen (Ofirmev Injection -) 1,000 mg IVPB Q6H PRN PRN Reason: PAIN LEVEL 6-10 Last Admin: 11/12/17 05:58 Dose: 1,000 mg Albuterol Sulfate (Ventolin 0.083% Nebulizer Soln -) 1 amp NEB Q4H PRN PRN Reason: SHORT OF BREATH/WHEEZING Anagrelide HCl (Agrylin) 1 mg PO TID [facility] Last Admin: 11/12/17 05:58 Dose: Not Given Chlorhexidine Gluconate (Hibiclens For Decolonization -) 1 applic TP HS [facility] Last Admin: 11/11/17 21:58 Dose: 1 applic Heparin Sodium (Porcine) (Heparin -) 5,000 unit SQ TID [facility] Last Admin: 11/12/17 05:58 Dose: 5,000 unit Ampicillin Sodium/Sulbactam (Sodium 1.5 gm/ Sodium Chloride) 100 mls @ 200 mls/ hr IVPB BID [facility] Last Admin: 11/11/17 21:58 Dose: 200 mls/hr Dextrose/Sodium Chloride (D5-Ns -) 1,000 mls @ 125 mls/hr IV ASDIR [facility] Last Admin: 11/12/17 05:59 Dose: 125 mls/hr Lorazepam (Ativan Injection -) 0.5 mg IVPUSH Q6H PRN PRN Reason: ANXIETY Last Admin: 11/12/17 07:54 Dose: 0.5 mg Metoprolol Tartrate (Lopressor Injection -) 5 mg IVPUSH Q4H PRN PRN Reason: TACHYCARDIA Last Admin: 11/11/17 22:00 Dose: 5 mg Mupirocin (Bactroban Ointment (For Decolonization) -) 1 applic NS BID [facility] Stop: 11/16/17 07:59 Last Admin: 11/11/17 21:58 Dose: 1 applic Prochlorperazine Edisylate (Compazine Injection -) 2.5 mg IVPB Q3H PRN PRN Reason: NAUSEA AND/OR VOMITING Last Admin: 11/11/17 14:09 Dose: 2.5 mg Saliva Substitute (Mouthk[place] Solution -) 1 applic MM DAILY [facility] Last Admin: 11/11/17 10:00 Dose: Not Given Tiotropium [place] (Spiriva -) 1 puff IH DAILY [facility] Last Admin: 11/11/17 10:00 Dose: Not Given Review of Systems Cardiovascular: As noted above Respiratory: denies: Cough or Sputum Production Gastrointestinal: denies: Vomiting, Diarrhea, Constipation or Abdominal Discomfort but reports Nausea and Abdominal Distention Musculoskeletal: No Symptoms Reported Endocrine: No Symptoms Reported - Objective Vital Signs: Last Vital Signs Temp Pulse Resp BP Pulse Ox 98.8 F 81 21 163/74 97 11/11/17 16:00 11/12/17 08:04 11/12/17 08:04 11/12/17 08:04 11/12/17 08:06 Intake & Output 11/09/17 11/10/17 11/11/17 11/12/17 23:59 23:59 23:59 23:59 Intake Total 1310 1705 2750 875 Output Total 501 5850 3950 1400 Balance 809 -4145 -1200 -525 Weight 121 lb 1.6 oz 118 lb 14.4 oz 112 lb 12.8 oz Constitutional: Mild Distress, Thin Neck: Supple Negative JVD Cardiovascular: S1 S2 Regular Rate Rhythm Respiratory: Diminished at the Bases Gastrointestinal: Abdominal Distention Hyperactive Bowel Sounds Ext: No Edema Labs: CBC, BMP 11/12/17 06:15 11/12/17 06:15 Assessment/Plan ASSESSMENT: 1. PSVT ectopic atrial tachycardia vs. sinus tachycardia, unlikely to be AV aleksandra reentrant or accessory pathway mediated tachycardia (Adenosine non responsive) 2. Acute on chronic hypercapneic, hypoxic respiratory failure, pneumonia possible aspiration 3. COPD, on chronic steroid and home O2 dependent 4. Hypertension 5. Myelo-proliferative disorder 6. Acute on CKD with hyperkalemia (Hyperkalemia resolved) 7. Nausea most likely related to ileus, persistent ileus 8. Lumber spine compression fracture PLAN: 1. Antibiotics as per the primary 2. Bronchodilators as per the primary team 3. Continue IV Lopressor but change to Q6-8h administration, hemodynamics permitting 4. management of ileus as per primary team Ca Cannon MD
[2017-11-12] MEDS ORDERED: METOPROLOL TARTRATE 5 MG/5 ML VIAL IVPUSH SCH (08:30)
[2017-11-12] MEDS: DEXTROSE 5%-WATER - 1,000 ML IV SCH (09:33)
[2017-11-12] MEDS: LYTES/YERBA SANTA 240 ML BOTTLE MM SCH ×3 (09:33→10:59)
[2017-11-12] MEDS: AMPICILLIN NA/SULBACTAM NA 1.5 GM in SODIUM CHLORIDE 100 ML IVPB SCH ×2 (09:34→21:20)
[2017-11-12] MEDS: TIOTROPIUM BROMIDE 18 MCG CAPSULES IH SCH ×2 (09:38→11:00)
[2017-11-12] MEDS: MUPIROCIN 2% TOPICAL OINTMENT FOR DECOLONIZATION NS SCH ×3 (09:38→21:21)
--- NOTE | 2017-11-12 09:52 | PN ---
Physical Exam: SUBJECTIVE: Patient seen and examined at bedside. NGT still draining. Pt complains of anxiety but no pain. Has not had a BM. No other complaints. OBJECTIVE: Vital Signs Period Temp Pulse Resp BP Sys/Palacios Pulse Ox Last 24 Hr 98 F-98.8 F 70-107 17-22 149-195/74-95 94-97 Gen: Pt sitting in bed in NAD. NGT in place and draining green fluid. AAO HEENT: NCAT, EOMI Neck: supple, no jvd Cardio: rrr, s1s2 no m/r/g lungs: limited exam as pt cannot move easily due to fx. Ant crackles b/l Abd: soft, distended, no tenderness, no guarding, hypoactive bs Ext: 2+ pulses, no edema Laboratory Results - last 24 hr 11/11/17 11/12/17 11/12/17 08:00 06:15 06:15 WBC 20.8 H RBC 5.08 Hgb 13.4 Hct 43.9 MCV 86.3 MCH 26.4 MCHC 30.6 L RDW 18.5 H Plt Count 560 H MPV 10.9 D Absolute Neuts (auto) 19.1 Neutrophils % 91.8 H Lymphocytes % 2.9 L D Monocytes % 3.7 L D Eosinophils % 1.1 D Basophils % 0.5 Nucleated RBC % 0 Sodium 149 H Potassium 4.5 Chloride 101 Carbon Dioxide 44 H Anion Gap 4 L BUN 88 H Creatinine 2.2 H Creat Clearance w eGFR 22.26 Random Glucose 117 H Calcium 8.0 L Total Bilirubin 0.4 AST 13 L ALT 17 Alkaline Phosphatase 65 Total Protein 5.5 L Albumin 2.6 L Stool Occult Blood Negative Active Medications Generic Name Dose Route Start Last Admin Trade Name Freq PRN Reason Stop Dose Admin Acetaminophen 1,000 mg 11/10/17 05:21 11/12/17 05:58 Ofirmev Injection - IVPB 1,000 mg Q6H PRN Administration PAIN LEVEL 6-10 Albuterol Sulfate 1 amp 11/11/17 07:07 Ventolin 0.083% Nebulizer Soln - NEB Q4H PRN SHORT OF BREATH/WHEEZING Chlorhexidine Gluconate 1 applic 11/11/17 07:07 11/11/17 21:58 Hibiclens For Decolonization - TP 1 applic HS [facility] Administration Heparin Sodium (Porcine) 5,000 unit 11/11/17 14:00 11/12/17 05:58 Heparin - SQ 5,000 unit TID [facility] Administration Ampicillin Sodium/Sulbactam 100 mls @ 200 mls/hr 11/11/17 10:00 11/12/17 09: 34 Sodium 1.5 gm/ Sodium Chloride IVPB 200 mls/hr BID [facility] Administration Dextrose 1,000 mls @ 100 mls/hr 11/12/17 08:30 11/12/17 09:33 D5w - IV 100 mls/hr ASDIR [facility] Administration Lorazepam 0.5 mg 11/12/17 02:22 11/12/17 07:54 Ativan Injection - IVPUSH 0.5 mg Q6H PRN Administration ANXIETY Metoprolol Tartrate 5 mg 11/12/17 14:00 Lopressor Injection - IVPUSH TID [facility] Mupirocin 1 applic 11/11/17 08:00 11/12/17 09:38 Bactroban Ointment (For Decolonization) - NS 11/16/17 07:59 Not Given BID [facility] Prochlorperazine Edisylate 2.5 mg 11/11/17 07:07 11/11/17 14:09 Compazine Injection - IVPB 2.5 mg Q3H PRN Administration NAUSEA AND/OR VOMITING Saliva Substitute 1 applic 11/10/17 16:15 11/12/17 09:33 Mouthkote Solution - MM Not Given DAILY [facility] Tiotropium [place] 1 puff 11/11/17 10:00 11/12/17 09:38 Spiriva - IH Not Given DAILY [facility] ASSESSMENT/PLAN:
--- NOTE | 2017-11-12 09:53 | PN ---
Physical Exam: SUBJECTIVE: Patient seen and examined in ICU. Too lethargic to answer questions, falls back into sleep. Per nurse, NGT drainage around 600 cc overnight. OBJECTIVE: Vital Signs Period Temp Pulse Resp BP Sys/Palacios Pulse Ox Last 24 Hr 98 F-98.8 F 70-107 17-22 149-195/74-95 94-97 GENERAL: NC 2L, mild distress, arousable, but lethargic LUNGS: Poor air entry HEART: Regular rate and rhythm, S1, S2 without murmur, rub or gallop. ABDOMEN: distended, normoactive bowel sounds, no guarding, no rebound EXTREMITIES: no edema CBCD WBC 20.8 K/mm3 (4.0-10.0) H 11/12/17 06:15 RBC 5.08 M/mm3 (3.60-5.2) 11/12/17 06:15 Hgb 13.4 GM/dL (10.7-15.3) 11/12/17 06:15 Hct 43.9 % (32.4-45.2) 11/12/17 06:15 MCV 86.3 fl (80-96) 11/12/17 06:15 MCHC 30.6 g/dl (32.0-36.0) L 11/12/17 06:15 RDW 18.5 % (11.6-15.6) H 11/12/17 06:15 Plt Count 560 K/MM3 (134-434) H 11/12/17 06:15 MPV 10.9 fl (7.5-11.1) D 11/12/17 06:15 CMP Sodium 149 mmol/L (136-145) H 11/12/17 06:15 Potassium 4.5 mmol/L (3.5-5.1) 11/12/17 06:15 Chloride 101 mmol/L (98-107) 11/12/17 06:15 Carbon Dioxide 44 mmol/L (21-32) H 11/12/17 06:15 Anion Gap 4 (8-16) L 11/12/17 06:15 BUN 88 mg/dL (7-18) H 11/12/17 06:15 Creatinine 2.2 mg/dL (0.55-1.02) H 11/12/17 06:15 Creat Clearance w eGFR 22.26 (>60) 11/12/17 06:15 Calcium 8.0 mg/dL (8.5-10.1) L 11/12/17 06:15 Total Bilirubin 0.4 mg/dL (0.2-1.0) 11/12/17 06:15 AST 13 U/L (15-37) L 11/12/17 06:15 ALT 17 U/L (12-78) 11/12/17 06:15 Alkaline Phosphatase 65 U/L (45-117) 11/12/17 06:15 Total Protein 5.5 g/dl (6.4-8.2) L 11/12/17 06:15 Albumin 2.6 g/dl (3.4-5.0) L 11/12/17 06:15 ASSESSMENT/PLAN: 67 yo F in ICU for acute on chronic hypoxic hypercapnic respiratory failure and SBO. acute on chronic hypercapnic respiratory failure - 2/2 aspiration PNA - Cont. unasyn day 5 SBO - NGT 700 cc in total * will administer contrast if NGT output improves - Strictly NPO - Cont. medical management, pt is poor surgical candidate cause of her respiratory status Hypernatremia - IVF changed to D5W RICHARD on CKD - Improving - Cont. D5W L1 fracture - Lidoderm patch, TLSO - DEXA as outpatient HTN - On lopressor q6h Myeloproliferative disorder - WBC and plt at baseline DVT ppx - Heparin sq Dispo - Cont. to monitor in ICU Visit type - Emergency Visit Emergency Visit: No - New Patient This patient is new to me today: No - Critical Care Critical Care patient: Yes Total Critical Care Time (in minutes): 35 Critical Care Statement: The care of this patient involved high complexity decision making to prevent further life threatening deterioration of the patient 's condition and/or to evaluate & treat vital organ system(s) failure or risk of failure.
[2017-11-12 10:28] LABS: ANISOCYTOSIS 1+; OVALOCYTE 1+; PLATELET ESTIMATE INCREASED
[2017-11-12] MEDS ORDERED: METOPROLOL TARTRATE 5 MG/5 ML VIAL IVPUSH ONE (12:11)
[2017-11-12] MEDS: METOPROLOL TARTRATE 5 MG/5 ML VIAL IVPUSH SCH ×2 (13:08→21:20)
--- NOTE | 2017-11-12 14:10 | PN ---
Progress Note (short form) - Note Progress Note: Pulm/CCM Seen and examined in ICU 24Hr; -wbc 24--> 20 -still with 600cc NGT out put -hemodynamics stable Active Medications Acetaminophen (Ofirmev Injection -) 1,000 mg IVPB Q6H PRN PRN Reason: PAIN LEVEL 6-10 Last Admin: 11/12/17 12:04 Dose: 1,000 mg Albuterol Sulfate (Ventolin 0.083% Nebulizer Soln -) 1 amp NEB Q4H PRN PRN Reason: SHORT OF BREATH/WHEEZING Chlorhexidine Gluconate (Hibiclens For Decolonization -) 1 applic TP HS [facility] Last Admin: 11/11/17 21:58 Dose: 1 applic Heparin Sodium (Porcine) (Heparin -) 5,000 unit SQ TID [facility] Last Admin: 11/12/17 13:06 Dose: 5,000 unit Ampicillin Sodium/Sulbactam (Sodium 1.5 gm/ Sodium Chloride) 100 mls @ 200 mls/ hr IVPB BID [facility] Last Admin: 11/12/17 09:34 Dose: 200 mls/hr Dextrose (D5w -) 1,000 mls @ 100 mls/hr IV ASDIR [facility] Last Admin: 11/12/17 09:33 Dose: 100 mls/hr Lorazepam (Ativan Injection -) 0.5 mg IVPUSH Q6H PRN PRN Reason: ANXIETY Last Admin: 11/12/17 07:54 Dose: 0.5 mg Metoprolol Tartrate (Lopressor Injection -) 5 mg IVPUSH TID [facility] Last Admin: 11/12/17 13:08 Dose: Not Given Mupirocin (Bactroban Ointment (For Decolonization) -) 1 applic NS BID [facility] Stop: 11/16/17 07:59 Last Admin: 11/12/17 11:01 Dose: 1 applic Prochlorperazine Edisylate (Compazine Injection -) 2.5 mg IVPB Q3H PRN PRN Reason: NAUSEA AND/OR VOMITING Last Admin: 11/11/17 14:09 Dose: 2.5 mg Saliva Substitute (Mouthkote Solution -) 1 applic MM DAILY [facility] Last Admin: 11/12/17 10:59 Dose: 1 applic Tiotropium [place] (Spiriva -) 1 puff IH DAILY [facility] Last Admin: 11/12/17 11:00 Dose: 1 puff Vital Signs Temp 99.7 F H 11/12/17 12:20 Pulse 100 H 11/12/17 13:08 Resp 24 11/12/17 12:20 BP 171/85 11/12/17 12:20 Pulse Ox 96 11/12/17 14:06 Intake & Output 11/11/17 11/12/17 11/12/17 23:59 11:59 23:59 Intake Total 2225 875 950 Output Total 3500 1400 500 Balance -1275 -525 450 Weight 51.165 kg Intake: IV 2125 875 750 D5-Ns - 1,000 ml @ 125 225 875 mls/hr IV ASDIR [facility] Rx#: [id number] D5-Ns - 1,000 ml @ 75 mls 900 /hr IV ASDIR [facility] Rx#: [id number] D5w - 1,000 ml @ 100 mls/ 750 hr IV ASDIR [facility] Rx#: [id number] LACTATED RINGERS SOLUTION 1000 1,000 ml In 1,000 ml @ 500 mls/hr IV ONCE ONE Rx #:[id number] IVPB 100 200 Output: Gastric Drainage 2700 600 Urine 800 800 500 Tillman 800 800 500 Other: Voiding Method Indwelling Catheter Indwelling Catheter Weight Measurement Method Built in [facility] Exam: General: awake, alert, less nauseatd, NGT LWS HEENT: PERRL Pulm: diminished in bases CV: sinus tach Abd: tedner to palp, distended, hypoactive Neuro: awake and alert CBC,CMP WBC 20.8 K/mm3 (4.0-10.0) H 11/12/17 06:15 RBC 5.08 M/mm3 (3.60-5.2) 11/12/17 06:15 Hgb 13.4 GM/dL (10.7-15.3) 11/12/17 06:15 Hct 43.9 % (32.4-45.2) 11/12/17 06:15 MCV 86.3 fl (80-96) 11/12/17 06:15 MCH 26.4 pg (25.7-33.7) 11/12/17 06:15 MCHC 30.6 g/dl (32.0-36.0) L 11/12/17 06:15 RDW 18.5 % (11.6-15.6) H 11/12/17 06:15 Plt Count 560 K/MM3 (134-434) H 11/12/17 06:15 MPV 10.9 fl (7.5-11.1) D 11/12/17 06:15 Absolute Neuts (auto) 19.1 # 11/12/17 06:15 Total Counted 100 11/09/17 20:20 Neutrophils % 91.8 % (42.8-82.8) H 11/12/17 06:15 Neutrophils % (Manual) 88.0 % (42.8-82.8) H 11/12/17 06:15 Band Neutrophils % 5.0 % 11/12/17 06:15 Lymphocytes % 2.9 % (8-40) L D 11/12/17 06:15 Lymphocytes % (Manual) 3.0 % (8-40) L D 11/12/17 06:15 Monocytes % 3.7 % (3.8-10.2) L D 11/12/17 06:15 Monocytes % (Manual) 2 % (3.8-10.2) L 11/12/17 06:15 Eosinophils % 1.1 % (0-4.5) D 11/12/17 06:15 Eosinophils % (Manual) 0.0 % (0-4.5) 11/12/17 06:15 Basophils % 0.5 % (0-2.0) 11/12/17 06:15 Basophils % (Manual) 0.0 % (0-2.0) 11/12/17 06:15 Myelocytes % (Man) 0 % (0-2) 11/12/17 06:15 Promyelocytes % (Man) 0 % (0-2) 11/12/17 06:15 Blast Cells % (Manual) 0 % (0-0) 11/12/17 06:15 Nucleated RBC % 0 % (0-0) 11/12/17 06:15 Metamyelocytes 0 % (0-2) 11/12/17 06:15 Hypochromia 1+ 11/09/17 20:20 Platelet Estimate Increased 11/12/17 06:15 Platelet Comment Present 11/12/17 06:15 Polychromasia 2+ 11/10/17 05:50 Anisocytosis 1+ 11/12/17 06:15 Microcytosis 2+ 11/10/17 05:50 Macrocytosis 1+ 11/09/17 20:20 Tear Drop Cells 1+ 11/10/17 05:50 Ovalocytes 1+ 11/12/17 06:15 Sodium 149 mmol/L (136-145) H 11/12/17 06:15 Potassium 4.5 mmol/L (3.5-5.1) 11/12/17 06:15 Plasma Potassium mmol/L (3.5-5.1) 11/10/17 12:40 Chloride 101 mmol/L (98-107) 11/12/17 06:15 Carbon Dioxide 44 mmol/L (21-32) H 11/12/17 06:15 Anion Gap 4 (8-16) L 11/12/17 06:15 BUN 88 mg/dL (7-18) H 11/12/17 06:15 Creatinine 2.2 mg/dL (0.55-1.02) H 11/12/17 06:15 Creat Clearance w eGFR 22.26 (>60) 11/12/17 06:15 Random Glucose 117 mg/dL (74-106) H 11/12/17 06:15 Lactic Acid 1.2 mmol/L (0.0-2.0) 11/09/17 20:20 Calcium 8.0 mg/dL (8.5-10.1) L 11/12/17 06:15 Magnesium 2.3 mg/dL (1.8-2.4) 11/09/17 11:35 Total Bilirubin 0.4 mg/dL (0.2-1.0) 11/12/17 06:15 AST 13 U/L (15-37) L 11/12/17 06:15 ALT 17 U/L (12-78) 11/12/17 06:15 Alkaline Phosphatase 65 U/L (45-117) 11/12/17 06:15 Ammonia 18.9 umol/L (11-32) 11/09/17 20:20 Creatine Kinase 34 IU/L (26-192) 11/09/17 20:20 Troponin I 0.04 ng/ml (0.00-0.05) 11/09/17 20:20 Total Protein 5.5 g/dl (6.4-8.2) L 11/12/17 06:15 Albumin 2.6 g/dl (3.4-5.0) L 11/12/17 06:15 CTAP: illeus vs SBO CXR: No CXR today Problem List - Problems Current Active Problems Acute on chronic respiratory failure with hypoxia and hypercapnia (Acute) Uoihg-ek-emgayud kidney injury (Acute) Closed fracture of lumbar vertebral body (Acute) Compression fracture of lumbar vertebra (Acute) SBO, Ileus (Acute) Paroxysmal supraventricular tachycardia (Acute) Assessment/Plan ASSESS: -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 -ABX for aspiration pna, unasyn -IVF -Trend BUN/Cr -Renal dose medications -VTE prophylaxis Alanna ACNP [id number]
[2017-11-12] MEDS ORDERED: LORazepam 2 MG/ML SDV VIAL IVPUSH ONE (14:15)
--- NOTE | 2017-11-12 16:23 | PN ---
Progress Note (short form) - Note Progress Note: Problems 1. CKD with acute component 2. hyperkalemia - likely in part pseudohyperkalemia 3. copd exacerbation 4. essential thrombocytosis 5. htn 6. anxiety 7. diverticulosis 8. hemorrhoids 9. leukocytosis Current Medications Acetaminophen (Ofirmev Injection -) 1,000 mg IVPB Q6H PRN PRN Reason: PAIN LEVEL 6-10 Last Admin: 11/12/17 12:04 Dose: 1,000 mg Albuterol Sulfate (Ventolin 0.083% Nebulizer Soln -) 1 amp NEB Q4H PRN PRN Reason: SHORT OF BREATH/WHEEZING Chlorhexidine Gluconate (Hibiclens For Decolonization -) 1 applic TP HS [facility] Last Admin: 11/11/17 21:58 Dose: 1 applic Heparin Sodium (Porcine) (Heparin -) 5,000 unit SQ TID [facility] Last Admin: 11/12/17 13:06 Dose: 5,000 unit Ampicillin Sodium/Sulbactam (Sodium 1.5 gm/ Sodium Chloride) 100 mls @ 200 mls/ hr IVPB BID [facility] Last Admin: 11/12/17 09:34 Dose: 200 mls/hr Dextrose (D5w -) 1,000 mls @ 100 mls/hr IV ASDIR [facility] Last Admin: 11/12/17 09:33 Dose: 100 mls/hr Lorazepam (Ativan Injection -) 0.5 mg IVPUSH Q6H PRN PRN Reason: ANXIETY Last Admin: 11/12/17 07:54 Dose: 0.5 mg Metoprolol Tartrate (Lopressor Injection -) 5 mg IVPUSH TID [facility] Last Admin: 11/12/17 13:08 Dose: Not Given Mupirocin (Bactroban Ointment (For Decolonization) -) 1 applic NS BID [facility] Stop: 11/16/17 07:59 Last Admin: 11/12/17 11:01 Dose: 1 applic Prochlorperazine Edisylate (Compazine Injection -) 2.5 mg IVPB Q3H PRN PRN Reason: NAUSEA AND/OR VOMITING Last Admin: 11/11/17 14:09 Dose: 2.5 mg Saliva Substitute (Mouthkote Solution -) 1 applic MM DAILY [facility] Last Admin: 11/12/17 10:59 Dose: 1 applic Tiotropium [place] (Spiriva -) 1 puff IH DAILY [facility] Last Admin: 11/12/17 11:00 Dose: 1 puff Last Vital Signs Temp Pulse Resp BP Pulse Ox 98.7 F 90 24 167/74 96 11/12/17 14:23 11/12/17 16:04 11/12/17 16:04 11/12/17 16:04 11/12/17 14:06 lungs clear heart reg abd soft nontender ext no edema CBC, BMP 11/12/17 06:15 11/12/17 06:15 CBC, BMP 11/11/17 05:45 11/11/17 05:45 IMP- New hypernatremia- switched to d5w aisha/ckd- renal function continues improving 2.2 from creat 3.6 to 3.4 copd htn Plan - monitor renal function and electrolytes follow k
[2017-11-12] MEDS: CHLORHEXIDINE GLUCONATE 4% CLEANSER FOR DECOLONIZATION TP SCH (21:21)
--- NOTE | 2017-11-12 21:40 | PN ---
Progress Note, Physician History of Present Illness: NGT continues to drain bilious material, 500 cc/shift. The pt is AAO x 3. Mild respiratory distress. Abdomen distended. +Flatus. +BS. Wants ice chips. - Current Medication List Current Medications: Active Medications Acetaminophen (Ofirmev Injection -) 1,000 mg IVPB Q6H PRN PRN Reason: PAIN LEVEL 6-10 Last Admin: 11/12/17 12:04 Dose: 1,000 mg Albuterol Sulfate (Ventolin 0.083% Nebulizer Soln -) 1 amp NEB Q4H PRN PRN Reason: SHORT OF BREATH/WHEEZING Chlorhexidine Gluconate (Hibiclens For Decolonization -) 1 applic TP HS [facility] Last Admin: 11/12/17 21:21 Dose: 1 applic Heparin Sodium (Porcine) (Heparin -) 5,000 unit SQ TID [facility] Last Admin: 11/12/17 21:21 Dose: 5,000 unit Ampicillin Sodium/Sulbactam (Sodium 1.5 gm/ Sodium Chloride) 100 mls @ 200 mls/ hr IVPB BID [facility] Last Admin: 11/12/17 21:20 Dose: 200 mls/hr Dextrose (D5w -) 1,000 mls @ 100 mls/hr IV ASDIR [facility] Last Admin: 11/12/17 09:33 Dose: 100 mls/hr Lorazepam (Ativan Injection -) 0.5 mg IVPUSH Q6H PRN PRN Reason: ANXIETY Last Admin: 11/12/17 21:19 Dose: 0.5 mg Metoprolol Tartrate (Lopressor Injection -) 5 mg IVPUSH TID [facility] Last Admin: 11/12/17 21:20 Dose: 5 mg Mupirocin (Bactroban Ointment (For Decolonization) -) 1 applic NS BID [facility] Stop: 11/16/17 07:59 Last Admin: 11/12/17 21:21 Dose: 1 applic Prochlorperazine Edisylate (Compazine Injection -) 2.5 mg IVPB Q3H PRN PRN Reason: NAUSEA AND/OR VOMITING Last Admin: 11/11/17 14:09 Dose: 2.5 mg Saliva Substitute (Mouthkote Solution -) 1 applic MM DAILY [facility] Last Admin: 11/12/17 10:59 Dose: 1 applic Tiotropium [place] (Spiriva -) 1 puff IH DAILY [facility] Last Admin: 11/12/17 11:00 Dose: 1 puff - Objective Vital Signs: Vital Signs Temperature 98.7 F 11/12/17 14:23 Pulse Rate 94 H 11/12/17 21:20 Respiratory Rate 24 11/12/17 20:44 Blood Pressure 175/83 11/12/17 21:20 O2 Sat by Pulse Oximetry (%) 95 11/12/17 20:53 Gastrointestinal: Yes: Soft, Distention. No: Tenderness Labs: CBC, BMP 11/12/17 06:15 11/12/17 06:15 Laboratory Last Values WBC 20.8 K/mm3 (4.0-10.0) H 11/12/17 06:15 RBC 5.08 M/mm3 (3.60-5.2) 11/12/17 06:15 Hgb 13.4 GM/dL (10.7-15.3) 11/12/17 06:15 Hct 43.9 % (32.4-45.2) 11/12/17 06:15 MCV 86.3 fl (80-96) 11/12/17 06:15 MCH 26.4 pg (25.7-33.7) 11/12/17 06:15 MCHC 30.6 g/dl (32.0-36.0) L 11/12/17 06:15 RDW 18.5 % (11.6-15.6) H 11/12/17 06:15 Plt Count 560 K/MM3 (134-434) H 11/12/17 06:15 MPV 10.9 fl (7.5-11.1) D 11/12/17 06:15 Absolute Neuts (auto) 19.1 # 11/12/17 06:15 Total Counted 100 11/09/17 20:20 Neutrophils % 91.8 % (42.8-82.8) H 11/12/17 06:15 Neutrophils % (Manual) 88.0 % (42.8-82.8) H 11/12/17 06:15 Band Neutrophils % 5.0 % 11/12/17 06:15 Lymphocytes % 2.9 % (8-40) L D 11/12/17 06:15 Lymphocytes % (Manual) 3.0 % (8-40) L D 11/12/17 06:15 Monocytes % 3.7 % (3.8-10.2) L D 11/12/17 06:15 Monocytes % (Manual) 2 % (3.8-10.2) L 11/12/17 06:15 Eosinophils % 1.1 % (0-4.5) D 11/12/17 06:15 Eosinophils % (Manual) 0.0 % (0-4.5) 11/12/17 06:15 Basophils % 0.5 % (0-2.0) 11/12/17 06:15 Basophils % (Manual) 0.0 % (0-2.0) 11/12/17 06:15 Myelocytes % (Man) 0 % (0-2) 11/12/17 06:15 Promyelocytes % (Man) 0 % (0-2) 11/12/17 06:15 Blast Cells % (Manual) 0 % (0-0) 11/12/17 06:15 Nucleated RBC % 0 % (0-0) 11/12/17 06:15 Metamyelocytes 0 % (0-2) 11/12/17 06:15 Hypochromia 1+ 11/09/17 20:20 Platelet Estimate Increased 11/12/17 06:15 Platelet Comment Present 11/12/17 06:15 Polychromasia 2+ 11/10/17 05:50 Anisocytosis 1+ 11/12/17 06:15 Microcytosis 2+ 11/10/17 05:50 Macrocytosis 1+ 11/09/17 20:20 Tear Drop Cells 1+ 11/10/17 05:50 Ovalocytes 1+ 11/12/17 06:15 Anticoagulation Therapy No Result Required. 11/10/17 05:10 Puncture Site Left radial 11/10/17 05:10 ABG pH 7.37 (7.35-7.45) 11/10/17 05:10 ABG pCO2 at Pt Temp 53.4 mmHg (35-45) H 11/10/17 05:10 ABG pO2 at Pt Temp 82.7 mmHg (80-100) D 11/10/17 05:10 ABG HCO3 30.0 meq/L (22-26) H 11/10/17 05:10 ABG O2 Sat (Measured) 95.9 % (90-98.9) 11/10/17 05:10 ABG O2 Content 19.6 % vol (15-22) 11/10/17 05:10 ABG Base Excess 3.8 meq/l (-2-2) H 11/10/17 05:10 Hemanth Test Positive 11/10/17 05:10 O2 Delivery Device Bipap 11/10/17 05:10 Oxygen Flow Rate 40% 11/10/17 05:10 Vent Mode No Result Required. 11/10/17 05:10 Vent Rate No Result Required. 11/09/17 16:40 Mechanical Rate No Result Required. 11/10/17 05:10 PEEP 5.0 cmH2O 11/10/17 05:10 Pressure Support Vent No Result Required. 11/09/17 16:40 Sodium 149 mmol/L (136-145) H 11/12/17 06:15 Potassium 4.5 mmol/L (3.5-5.1) 11/12/17 06:15 Plasma Potassium mmol/L (3.5-5.1) 11/10/17 12:40 Chloride 101 mmol/L (98-107) 11/12/17 06:15 Carbon Dioxide 44 mmol/L (21-32) H 11/12/17 06:15 Anion Gap 4 (8-16) L 11/12/17 06:15 BUN 88 mg/dL (7-18) H 11/12/17 06:15 Creatinine 2.2 mg/dL (0.55-1.02) H 11/12/17 06:15 Creat Clearance w eGFR 22.26 (>60) 11/12/17 06:15 Random Glucose 117 mg/dL (74-106) H 11/12/17 06:15 Lactic Acid 1.2 mmol/L (0.0-2.0) 11/09/17 20:20 Calcium 8.0 mg/dL (8.5-10.1) L 11/12/17 06:15 Magnesium 2.3 mg/dL (1.8-2.4) 11/09/17 11:35 Total Bilirubin 0.4 mg/dL (0.2-1.0) 11/12/17 06:15 AST 13 U/L (15-37) L 11/12/17 06:15 ALT 17 U/L (12-78) 11/12/17 06:15 Alkaline Phosphatase 65 U/L (45-117) 11/12/17 06:15 Ammonia 18.9 umol/L (11-32) 11/09/17 20:20 Creatine Kinase 34 IU/L (26-192) 11/09/17 20:20 Troponin I 0.04 ng/ml (0.00-0.05) 11/09/17 20:20 Total Protein 5.5 g/dl (6.4-8.2) L 11/12/17 06:15 Albumin 2.6 g/dl (3.4-5.0) L 11/12/17 06:15 Urine Color Dkyellow 11/09/17 15:00 Urine Appearance Slcloudy 11/09/17 15:00 Urine pH 5.0 (5.0-8.0) 11/09/17 15:00 Ur Specific [place] 1.018 (1.001-1.035) 11/09/17 15:00 Urine Protein 2+ (NEGATIVE) H 11/09/17 15:00 Urine Glucose (UA) Negative (NEGATIVE) 11/09/17 15:00 Urine Ketones Negative (NEGATIVE) 11/09/17 15:00 Urine Blood Negative (NEGATIVE) 11/09/17 15:00 Urine Nitrite Negative (NEGATIVE) 11/09/17 15:00 Urine Bilirubin Negative (<2.0 mg/dL) 11/09/17 15:00 Urine Urobilinogen Negative mg/dL (0.2-1.0) 11/09/17 15:00 Ur Leukocyte Esterase Negative (NEGATIVE) 11/09/17 15:00 Urine WBC (Auto) 1 /hpf (3-5) 11/09/17 15:00 Urine RBC (Auto) 1 /hpf (0-3) 11/09/17 15:00 Ur Epithelial Cells Rare /HPF (FEW) 11/09/17 15:00 Urine Bacteria Rare /hpf (NONE SEEN) 11/07/17 06:15 Urine Mucus Rare 11/09/17 15:00 Ur Random Sodium 18 MMOL/L 11/09/17 15:00 Ur Random Potassium 71.7 MMOL/L 11/09/17 15:00 Ur Random Chloride 31 MMOL/L 11/09/17 15:00 Urine Creatinine 117.0 mg/dL (20-320) 11/09/17 15:00 Stool Occult Blood Negative (NEGATIVE) 11/11/17 08:00 Problem List - Problems (1) Ileus Code(s): K56.7 - ILEUS, UNSPECIFIED (2) Acute on chronic respiratory failure with hypoxia and hypercapnia Code(s): J96.21 - ACUTE AND CHRONIC RESPIRATORY FAILURE WITH HYPOXIA; J96.22 - ACUTE AND CHRONIC RESPIRATORY FAILURE WITH HYPERCAPNIA (3) Wypsy-tr-qoqtiij kidney injury Code(s): N17.9 - ACUTE KIDNEY FAILURE, UNSPECIFIED; N18.9 - CHRONIC KIDNEY DISEASE, UNSPECIFIED Qualifiers: Acute renal failure type: unspecified Chronic kidney disease stage: unspecified stage Qualified Code(s): N17.9 - Acute kidney failure, unspecified ; N18.9 - Chronic kidney disease, unspecified (4) Closed fracture of lumbar vertebral body Code(s): S32.009A - UNSP FRACTURE OF UNSP LUMBAR VERTEBRA, INIT FOR CLOS FX Assessment/Plan Continue current care.
[2017-11-13] MEDS: ACETAMINOPHEN 1000 MG/100 ML VIAL (NON FORMULARY) IVPB PRN ×3 (04:06→22:13)
[2017-11-13] MEDS: HEPARIN NA (PORCINE) 5,000 UNITS/ML 1ML VIAL SQ SCH ×3 (06:08→21:28)
[2017-11-13] MEDS: METOPROLOL TARTRATE 5 MG/5 ML VIAL IVPUSH SCH ×4 (06:08→21:28)
[2017-11-13 06:22] LABS: BASO % 0.4 % (0-2.0); EOS % 1.8 % (0-4.5); HEMATOCRIT 42.7 % (32.4-45.2); HEMOGLOBIN 12.9 GM/dL (10.7-15.3); LYMPH % 3.5 % (8-40); MCH 26.3 pg (25.7-33.7); MCHC 30.3 g/dl (32.0-36.0); MEAN CELL VOLUME 86.9 fl (80-96); MEAN PLT VOLUME 10.9 fl (7.5-11.1); MONO % 2.7 % (3.8-10.2); NEUT % 91.6 % (42.8-82.8); PLATELET COUNT 564 K/MM3 (134-434); RBC 4.91 M/mm3 (3.60-5.2); RDW 18.7 % (11.6-15.6); WHITE BLOOD COUNT 23.5 K/mm3 (4.0-10.0)
[2017-11-13 06:54] LABS: CHLORIDE 98 mmol/L (98-107); POTASSIUM 4.1 mmol/L (3.5-5.1); SODIUM 145 mmol/L (136-145)
[2017-11-13 07:02] LABS: ANION GAP 3 (8-16); BLOOD UREA NITROGEN 58 mg/dL (7-18); CALCIUM 8.3 mg/dL (8.5-10.1); CO2 44 mmol/L (21-32); CREATININE 1.5 mg/dL (0.55-1.02); GLUCOSE,RANDOM 95 mg/dL (74-106); MAGNESIUM 2.4 mg/dL (1.8-2.4); PHOSPHOROUS 2.9 mg/dL (2.5-4.9)
[2017-11-13] MEDS: LORazepam 2 MG/ML SDV VIAL IVPUSH PRN ×3 (08:13→22:13)
[2017-11-13] MEDS ORDERED: hydrALAZINE HCL 20 MG/ML VIAL IVPUSH ONE (08:15)
[2017-11-13] MEDS: MUPIROCIN 2% TOPICAL OINTMENT FOR DECOLONIZATION NS SCH ×2 (10:00→21:28)
[2017-11-13] MEDS ORDERED: hydrALAZINE HCL 20 MG/ML VIAL ONE (10:20)
[2017-11-13] MEDS ORDERED: AMPICILLIN NA/SULBACTAM NA 1.5 GM VIAL ONE ×2 (10:21→21:44)
[2017-11-13] MEDS ORDERED: SODIUM CHLORIDE 100 ML IVPB ONE ×2 (10:21→21:45)
[2017-11-13] MEDS: AMPICILLIN NA/SULBACTAM NA 1.5 GM in SODIUM CHLORIDE 100 ML IVPB SCH ×2 (10:27→21:56)
[2017-11-13] MEDS: LYTES/YERBA SANTA 240 ML BOTTLE MM SCH (10:27)
[2017-11-13] MEDS: DEXTROSE 5%-WATER - 1,000 ML IV SCH (10:27)
[2017-11-13] MEDS: TIOTROPIUM BROMIDE 18 MCG CAPSULES IH SCH (10:27)
[2017-11-13] MEDS ORDERED: PICC LINE 8 ML FLUSH PROTOCOL IVPUSH PRN (11:23)
--- NOTE | 2017-11-13 11:50 | PN ---
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 had elevated BP over night 182/94 , continue Metoprolol 5 iv TID and one time hydrazine 10 IV . NG tube drained 550 cc since 7 pm last night total of 1200 CC per 24 hr. OBJECTIVE: Vital Signs Period Temp Pulse Resp BP Sys/[place] Pulse Ox Last 24 Hr 98.2 F-99.7 F 75-106 16-24 121-187/64-105 95-96 GENERAL: AAOx3 in NAD HEAD: NC/AT EYES: PERRL, EOMI, sclera anicteric, conjunctiva clear. ENT: Ears normal, nares patent, oropharynx clear without exudates, dry mucous membranes. NECK: Trachea midline, supple. LUNGS: Breath sounds equal, clear to auscultation bilaterally, no wheezes, no crackles, no accessory muscle use. HEART: Regular rate and rhythm, S1, S2 without murmur, rub or gallop. ABDOMEN: Soft, tender to deep palpation , distended, hypoactive bowel sounds, no guarding, no rebound,para umbilical hernia 5x5 cm EXTREMITIES: 2+ pulses, warm, well-perfused, no edema. NEUROLOGICAL: Cranial nerves II through XII grossly intact. Normal speech, gait not observed. PSYCH: Normal mood, normal affect. SKIN: Warm, dry, normal turgor, Laboratory Results - last 24 hr 11/13/17 11/13/17 05:30 05:30 WBC 23.5 H RBC 4.91 Hgb 12.9 Hct 42.7 MCV 86.9 MCH 26.3 MCHC 30.3 L RDW 18.7 H Plt Count 564 H MPV 10.9 Absolute Neuts (auto) 21.5 Neutrophils % 91.6 H Lymphocytes % 3.5 L D Monocytes % 2.7 L Eosinophils % 1.8 Basophils % 0.4 Nucleated RBC % 0 Sodium 145 Potassium 4.1 Chloride 98 Carbon Dioxide 44 H Anion Gap 3 L BUN 58 H D Creatinine 1.5 H Creat Clearance w eGFR 34.64 Random Glucose 95 Calcium 8.3 L Phosphorus 2.9 Magnesium 2.4 Active Medications Generic Name Dose Route Start Last Admin Trade Name Freq PRN Reason Stop Dose Admin Albuterol Sulfate 1 amp 11/11/17 07:07 Ventolin 0.083% Nebulizer Soln - NEB Q4H PRN SHORT OF BREATH/WHEEZING Chlorhexidine Gluconate 1 applic 11/11/17 07:07 11/12/17 21:21 Hibiclens For Decolonization - TP 1 applic HS [facility] Administration Heparin Sodium (Porcine) 5,000 unit 11/11/17 14:00 11/13/17 06:08 Heparin - SQ 5,000 unit TID [facility] Administration IV Flush 8 ml 11/13/17 11:23 Picc Line Flush IVPUSH PRN PRN Protocol Ampicillin Sodium/Sulbactam 100 mls @ 200 mls/hr 11/11/17 10:00 11/13/17 10: 27 Sodium 1.5 gm/ Sodium Chloride IVPB 200 mls/hr BID [facility] Administration Dextrose 1,000 mls @ 100 mls/hr 11/12/17 08:30 11/13/17 10:27 D5w - IV 100 mls/hr ASDIR [facility] Administration Lorazepam 0.5 mg 11/12/17 02:22 11/13/17 08:13 Ativan Injection - IVPUSH 0.5 mg Q6H PRN Administration ANXIETY Metoprolol Tartrate 5 mg 11/12/17 14:00 11/13/17 06:08 Lopressor Injection - IVPUSH 5 mg TID [facility] Administration Mupirocin 1 applic 11/11/17 08:00 11/12/17 21:21 Bactroban Ointment (For Decolonization) - NS 11/16/17 07:59 1 applic BID [facility] Administration Prochlorperazine Edisylate 2.5 mg 11/11/17 07:07 11/11/17 14:09 Compazine Injection - IVPB 2.5 mg Q3H PRN Administration NAUSEA AND/OR VOMITING Saliva Substitute 1 applic 11/10/17 16:15 11/13/17 10:27 Mouthkote Solution - MM 1 applic DAILY [facility] Administration Tiotropium [place] 1 puff 11/11/17 10:00 11/13/17 10:27 Spiriva - IH 1 puff DAILY [facility] Administration CBC, BMP 11/13/17 05:30 11/13/17 05:30 ASSESSMENT/PLAN: 67 yo Fpresented with back pain and found later to have SBO and was admitted to ICU for further evaluation # GI - Small bowel obstruction partial high grade * had 2 previous abd surgery and use of narcotics could participate to the SBO * abdomen distneded, soft , pass flatus but no BM yet . * CT abdomen reviewed * NPO * IV fluids * cont abx Unacyn day 3 * NGT drain 1200 cc /24 hr * Cebtral line for TPN * monitor lytes * pain medicine Tyelnol , avoids narcotics * continue conservative management for now till NGT drainage decrease will consider barium study , poor surgical candidate * surgery consulted * GI consulted dr benton agree with the plan and avoid reglan # Pulm - Acute on chronic respiratory distress due to PNA -COPD * CXR with worsening B/L changes pulm and pleural * repeat CXr in AM * cont ABX unasyn * insentive spirometry * aspiration precautions * bronchodilators * #Nephro -RICHARD on CKD * Improving * Cont. D5W # New onset hypernatremia , resolved * on D5w * repeat BMP #Neuro - Anxiety * Ativan 0.5 Q 6hr - L1 fracture * AOx3 * Lidoderm patch, TLSO * DEXA as outpatient * poor surgical candidate # Cardiovascular -HTN uncontrolled * On lopressor q6h * hydralasin 10 IV once in AM if needed # Heme -Myeloproliferative disorder * WBC and plt at baseline #FEN * F: D5w @ 75 CC * E: monitor * N: NPO # DVT ppx * Heparin sq TID #Dispo * Cont. to monitor in ICU * central line placement and stat TPN * Full code Total critical time 45 min Visit type - Emergency Visit Emergency Visit: Yes ED Registration Date: 11/09/17 Care time: The patient presented to the Emergency Department on the above date and was hospitalized for further evaluation of their emergent condition. - New Patient This patient is new to me today: Yes Date on this admission: 11/13/17 - Critical Care Critical Care patient: Yes Total Critical Care Time (in minutes): 45 Critical Care Statement: The care of this patient involved high complexity decision making to prevent further life threatening deterioration of the patient 's condition and/or to evaluate & treat vital organ system(s) failure or risk of failure.
--- NOTE | 2017-11-13 12:19 | PN ---
Teaching Attending Note Name of Resident: Maynor Weiner ATTENDING PHYSICIAN STATEMENT I saw and evaluated the patient. I reviewed the resident's note and discussed the case with the resident. I agree with the resident's findings and plan as documented. SUBJECTIVE: Pt seen and examined in the ICU. Still with high output from NGT. Feels slightly less distended. No shortness of breath or chest pain. No fevers or chills. OBJECTIVE: Vital Signs Period Temp Pulse Resp BP Sys/[place]ios Pulse Ox Last 24 Hr 98.2 F-99.7 F 75-106 16-24 121-187/64-99 95-96 Intake & Output 11/10/17 11/11/17 11/12/17 11/13/17 23:59 23:59 23:59 23:59 Intake Total 1705 2750 2325 700 Output Total 5850 3950 2850 1050 Balance -4145 -1200 -525 -350 Weight 54.93 kg 53.932 kg 51.165 kg 53.977 kg Gen: uncomfortable Heart: RRR Lung: decreased breath sounds at the bases Abd: softly distended, nontender Ext: no edema CBC, BMP 11/13/17 05:30 11/13/17 05:30 Active Medications Albuterol Sulfate (Ventolin 0.083% Nebulizer Soln -) 1 amp NEB Q4H PRN PRN Reason: SHORT OF BREATH/WHEEZING Chlorhexidine Gluconate (Hibiclens For Decolonization -) 1 applic TP HS [facility] Last Admin: 11/12/17 21:21 Dose: 1 applic Heparin Sodium (Porcine) (Heparin -) 5,000 unit SQ TID [facility] Last Admin: 11/13/17 06:08 Dose: 5,000 unit IV Flush (Picc Line Flush) 8 ml IVPUSH PRN PRN PRN Reason: Protocol Ampicillin Sodium/Sulbactam (Sodium 1.5 gm/ Sodium Chloride) 100 mls @ 200 mls/ hr IVPB BID [facility] Last Admin: 11/13/17 10:27 Dose: 200 mls/hr Dextrose (D5w -) 1,000 mls @ 100 mls/hr IV ASDIR [facility] Last Admin: 11/13/17 10:27 Dose: 100 mls/hr Lorazepam (Ativan Injection -) 0.5 mg IVPUSH Q6H PRN PRN Reason: ANXIETY Last Admin: 11/13/17 08:13 Dose: 0.5 mg Metoprolol Tartrate (Lopressor Injection -) 5 mg IVPUSH TID [facility] Last Admin: 11/13/17 06:08 Dose: 5 mg Mupirocin (Bactroban Ointment (For Decolonization) -) 1 applic NS BID [facility] Stop: 11/16/17 07:59 Last Admin: 11/12/17 21:21 Dose: 1 applic Prochlorperazine Edisylate (Compazine Injection -) 2.5 mg IVPB Q3H PRN PRN Reason: NAUSEA AND/OR VOMITING Last Admin: 11/11/17 14:09 Dose: 2.5 mg Saliva Substitute ([place] Solution -) 1 applic MM DAILY [facility] Last Admin: 11/13/17 10:27 Dose: 1 applic Tiotropium [place] (Spiriva -) 1 puff IH DAILY [facility] Last Admin: 11/13/17 10:27 Dose: 1 puff ASSESSMENT AND PLAN: Small Bowel Obstruction Pneumonia Acute on Chronic Hypoxic and Hypercapneic Respiratory Failure Acute on Chronic Renal Failure COPD Myeloproliferative Disorder Lumbar Compression Fracture HTN - continue antibiotics - NGT to intermittent low wall suction - IVF - will need TPN - monitor urine output, creatinine - monitor lytes - inhaled bronchodilators - O2 to keep SpO2 >90% - await return of bowel function - DVT prophylaxis - continue ICU monitoring critical care time spent in reviewing chart, evaluating patient and formulating plan 35 min
--- NOTE | 2017-11-13 12:30 | PN ---
Progress Note, Physician History of Present Illness: Abd distension improved, NGT inserted with 1500 cc volume output. Tachycardia improved on IV Lopressor, undergoing CVL placement for TPN. - Current Medication List Current Medications: Active Medications Albuterol Sulfate (Ventolin 0.083% Nebulizer Soln -) 1 amp NEB Q4H PRN PRN Reason: SHORT OF BREATH/WHEEZING Chlorhexidine Gluconate (Hibiclens For Decolonization -) 1 applic TP HS [facility] Last Admin: 11/12/17 21:21 Dose: 1 applic Heparin Sodium (Porcine) (Heparin -) 5,000 unit SQ TID [facility] Last Admin: 11/13/17 06:08 Dose: 5,000 unit IV Flush (Picc Line Flush) 8 ml IVPUSH PRN PRN PRN Reason: Protocol Ampicillin Sodium/Sulbactam (Sodium 1.5 gm/ Sodium Chloride) 100 mls @ 200 mls/ hr IVPB BID [facility] Last Admin: 11/13/17 10:27 Dose: 200 mls/hr Dextrose (D5w -) 1,000 mls @ 100 mls/hr IV ASDIR [facility] Last Admin: 11/13/17 10:27 Dose: 100 mls/hr Lorazepam (Ativan Injection -) 0.5 mg IVPUSH Q6H PRN PRN Reason: ANXIETY Last Admin: 11/13/17 08:13 Dose: 0.5 mg Metoprolol Tartrate (Lopressor Injection -) 5 mg IVPUSH TID [facility] Last Admin: 11/13/17 06:08 Dose: 5 mg Mupirocin (Bactroban Ointment (For Decolonization) -) 1 applic NS BID [facility] Stop: 11/16/17 07:59 Last Admin: 11/12/17 21:21 Dose: 1 applic Prochlorperazine Edisylate (Compazine Injection -) 2.5 mg IVPB Q3H PRN PRN Reason: NAUSEA AND/OR VOMITING Last Admin: 11/11/17 14:09 Dose: 2.5 mg Saliva Substitute ([place] Solution -) 1 applic MM DAILY [facility] Last Admin: 11/13/17 10:27 Dose: 1 applic Tiotropium [place] (Spiriva -) 1 puff IH DAILY [facility] Last Admin: 11/13/17 10:27 Dose: 1 puff - Objective Vital Signs: Vital Signs Temperature 98.2 F 11/13/17 02:12 Pulse Rate 78 11/13/17 11:35 Respiratory Rate 16 11/13/17 11:35 Blood Pressure 145/75 11/13/17 11:35 O2 Sat by Pulse Oximetry (%) 96 11/13/17 10:00 Constitutional: Yes: No Distress, Calm, Thin Neck: Yes: Supple Cardiovascular: Yes: Regular Rate and Rhythm Respiratory: Yes: Regular, Diminished, On Nasal O2 Gastrointestinal: Yes: Distention, Hyperactive Bowel Sounds Edema: No Labs: CBC, BMP 11/13/17 05:30 11/13/17 05:30 Problem List - Problems (1) [id number]-krbulcf kidney injury Code(s): N17.9 - ACUTE KIDNEY FAILURE, UNSPECIFIED; N18.9 - CHRONIC KIDNEY DISEASE, UNSPECIFIED Qualifiers: Acute renal failure type: unspecified Chronic kidney disease stage: unspecified stage Qualified Code(s): N17.9 - Acute kidney failure, unspecified ; N18.9 - Chronic kidney disease, unspecified (2) Paroxysmal supraventricular tachycardia Code(s): I47.1 - SUPRAVENTRICULAR TACHYCARDIA (3) Acute on chronic respiratory failure with hypoxia and hypercapnia Code(s): J96.21 - ACUTE AND CHRONIC RESPIRATORY FAILURE WITH HYPOXIA; J96.22 - ACUTE AND CHRONIC RESPIRATORY FAILURE WITH HYPERCAPNIA (4) Closed fracture of lumbar vertebral body Code(s): S32.009A - UNSP FRACTURE OF UNSP LUMBAR VERTEBRA, INIT FOR CLOS FX (5) COPD (chronic obstructive pulmonary disease) Code(s): J44.9 - CHRONIC OBSTRUCTIVE PULMONARY DISEASE, UNSPECIFIED Qualifiers: COPD type: unspecified COPD Qualified Code(s): J44.9 - Chronic obstructive pulmonary disease, unspecified (6) Myeloproliferative disorder Code(s): D47.1 - CHRONIC MYELOPROLIFERATIVE DISEASE (7) Hyperkalemia Code(s): E87.5 - HYPERKALEMIA (8) Small bowel obstruction due to adhesions Code(s): K56.50 - INTESTNL ADHESIONS, UNSP TO PARTIAL VERSUS COMPLETE OBST Assessment/Plan Echo: Jun 20, 2017 Normal LV size with hyperdynamic LV fxn, tr MR, TR mod pulm HTN RVSP 47 mmHg 1. PSVT ectopic atrial tachycardia vs. sinus tachycardia, unlikely to be AV aleksandra reentrant or accessory pathway mediated tachycardia (Adenosine non responsive) 2. Acute on chronic hypercapneic, hypoxic respiratory failure, pneumonia possible aspiration 3. COPD, on chronic steroid and home O2 dependent, PNA 4. Hypertension 5. Myelo-proliferative disorder 6. Acute on CKD with hyperkalemia improved 7. Small bowel obstruction 8. Lumber spine compression fracture PLAN: 1. Empiric antibiotic course as per the primary 2. Bronchodilators as per the primary team 3. Continue IV Lopressor as needed, hemodynamics permitting 4. NGT to intermittent low wall suction, IVF, start TPN 5. BD, O2 to keep SpO2 >90%, await return of bowel function 6. DVT prophylaxis
[2017-11-13] MEDS ORDERED: MIDAZOLAM HCL 2 MG/2 ML SINGLE DOSE VIAL IVPUSH ONE (12:36)
--- NOTE | 2017-11-13 14:20 | PN ---
Progress Note, Physician History of Present Illness: Pt seen and examined at bedside. She is awake and alert. She says she feels hungry. She still an NG tube to suction. - Current Medication List Current Medications: Active Medications Albuterol Sulfate (Ventolin 0.083% Nebulizer Soln -) 1 amp NEB Q4H PRN PRN Reason: SHORT OF BREATH/WHEEZING Chlorhexidine Gluconate (Hibiclens For Decolonization -) 1 applic TP HS [facility] Last Admin: 11/12/17 21:21 Dose: 1 applic Heparin Sodium (Porcine) (Heparin -) 5,000 unit SQ TID [facility] Last Admin: 11/13/17 06:08 Dose: 5,000 unit IV Flush (Picc Line Flush) 8 ml IVPUSH PRN PRN PRN Reason: Protocol Ampicillin Sodium/Sulbactam (Sodium 1.5 gm/ Sodium Chloride) 100 mls @ 200 mls/ hr IVPB BID [facility] Last Admin: 11/13/17 10:27 Dose: 200 mls/hr Dextrose (D5w -) 1,000 mls @ 100 mls/hr IV ASDIR [facility] Last Admin: 11/13/17 10:27 Dose: 100 mls/hr Lorazepam (Ativan Injection -) 0.5 mg IVPUSH Q6H PRN PRN Reason: ANXIETY Last Admin: 11/13/17 08:13 Dose: 0.5 mg Metoprolol Tartrate (Lopressor Injection -) 5 mg IVPUSH Q6H [facility] Mupirocin (Bactroban Ointment (For Decolonization) -) 1 applic NS BID [facility] Stop: 11/16/17 07:59 Last Admin: 11/12/17 21:21 Dose: 1 applic Prochlorperazine Edisylate (Compazine Injection -) 2.5 mg IVPB Q3H PRN PRN Reason: NAUSEA AND/OR VOMITING Last Admin: 11/11/17 14:09 Dose: 2.5 mg Saliva Substitute ([place] Solution -) 1 applic MM DAILY [facility] Last Admin: 11/13/17 10:27 Dose: 1 applic Tiotropium [place] (Spiriva -) 1 puff IH DAILY [facility] Last Admin: 11/13/17 10:27 Dose: 1 puff - Objective Vital Signs: Vital Signs Temperature 98.2 F 11/13/17 02:12 Pulse Rate 78 06/18/18 11:35 Respiratory Rate 16 11/13/17 11:35 Blood Pressure 145/75 11/13/17 11:35 O2 Sat by Pulse Oximetry (%) 96 11/13/17 10:00 Constitutional: Yes: Calm Eyes: Yes: Conjunctiva Clear HENT: Yes: Atraumatic Cardiovascular: Yes: S1, S2 Respiratory: Yes: On Nasal O2 Gastrointestinal: Yes: Soft, Other (ng tube) Genitourinary: Yes: [place] Present Musculoskeletal: Yes: Back Pain Edema: No Neurological: Yes: Oriented Psychiatric: Yes: Oriented Labs: CBC, BMP 11/13/17 05:30 11/13/17 05:30 Problem List - Problems (1) Ileus Code(s): K56.7 - ILEUS, UNSPECIFIED (2) Small bowel obstruction due to adhesions Code(s): K56.50 - INTESTNL ADHESIONS, UNSP TO PARTIAL VERSUS COMPLETE OBST (3) CKD (chronic kidney disease) Code(s): N18.9 - CHRONIC KIDNEY DISEASE, UNSPECIFIED Assessment/Plan Current Medications Generic Name Dose Route Start Last Admin Trade Name Freq PRN Reason Stop Dose Admin Albuterol Sulfate 1 amp 11/11/17 07:07 Ventolin 0.083% Nebulizer Soln - NEB Q4H PRN SHORT OF BREATH/WHEEZING Chlorhexidine Gluconate 1 applic 11/11/17 07:07 11/12/17 21:21 Hibiclens For Decolonization - TP 1 applic HS [facility] Administration Heparin Sodium (Porcine) 5,000 unit 11/11/17 14:00 11/13/17 06:08 Heparin - SQ 5,000 unit TID [facility] Administration IV Flush 8 ml 11/13/17 11:23 Picc Line Flush IVPUSH PRN PRN Protocol Ampicillin Sodium/Sulbactam 100 mls @ 200 mls/hr 11/11/17 10:00 11/13/17 10: 27 Sodium 1.5 gm/ Sodium Chloride IVPB 200 mls/hr BID [facility] Administration Dextrose 1,000 mls @ 100 mls/hr 11/12/17 08:30 11/13/17 10:27 D5w - IV 100 mls/hr ASDIR [facility] Administration Lorazepam 0.5 mg 11/12/17 02:22 11/13/17 08:13 Ativan Injection - IVPUSH 0.5 mg Q6H PRN Administration ANXIETY Metoprolol Tartrate 5 mg 11/13/17 15:00 Lopressor Injection - IVPUSH Q6H-IV [facility] Mupirocin 1 applic 11/11/17 08:00 11/12/17 21:21 Bactroban Ointment (For Decolonization) - NS 11/16/17 07:59 1 applic BID [facility] Administration Prochlorperazine Edisylate 2.5 mg 11/11/17 07:07 11/11/17 14:09 Compazine Injection - IVPB 2.5 mg Q3H PRN Administration NAUSEA AND/OR VOMITING Saliva Substitute 1 applic 11/10/17 16:15 11/13/17 10:27 Mouthk[place] Solution - MM 1 applic DAILY [facility] Administration Tiotropium [place] 1 puff 11/11/17 10:00 11/13/17 10:27 Spiriva - IH 1 puff DAILY [facility] Administration Impression 1. CKD with acute component 2. hyperkalemia - likely in part pseudohyperkalemia 3. copd exacerbation 4. essential thrombocytosis 5. htn 6. anxiety 7. diverticulosis 8. hemorrhoids 9. leukocytosis Plan - renal function is improving - cont with fluids - monitor lytes - monitor urine ouput - monitor ng output - will follow Dr Argueta
--- NOTE | 2017-11-13 14:41 | PN ---
Progress Note, Physician History of Present Illness: NGT continues to drain bilious material, 1500 cc 24+hrs. The pt is AAO x 3. Mild respiratory distress. Abdomen softer. +Flatus. +BS. - Current Medication List Current Medications: Active Medications Albuterol Sulfate (Ventolin 0.083% Nebulizer Soln -) 1 amp NEB Q4H PRN PRN Reason: SHORT OF BREATH/WHEEZING Chlorhexidine Gluconate (Hibiclens For Decolonization -) 1 applic TP HS [facility] Last Admin: 11/12/17 21:21 Dose: 1 applic Heparin Sodium (Porcine) (Heparin -) 5,000 unit SQ TID [facility] Last Admin: 11/13/17 06:08 Dose: 5,000 unit IV Flush (Picc Line Flush) 8 ml IVPUSH PRN PRN PRN Reason: Protocol Ampicillin Sodium/Sulbactam (Sodium 1.5 gm/ Sodium Chloride) 100 mls @ 200 mls/ hr IVPB BID [facility] Last Admin: 11/13/17 10:27 Dose: 200 mls/hr Dextrose (D5w -) 1,000 mls @ 100 mls/hr IV ASDIR [facility] Last Admin: 11/13/17 10:27 Dose: 100 mls/hr Lorazepam (Ativan Injection -) 0.5 mg IVPUSH Q6H PRN PRN Reason: ANXIETY Last Admin: 11/13/17 08:13 Dose: 0.5 mg Metoprolol Tartrate (Lopressor Injection -) 5 mg IVPUSH Q6H-IV [facility] Mupirocin (Bactroban Ointment (For Decolonization) -) 1 applic NS BID [facility] Stop: 11/16/17 07:59 Last Admin: 11/12/17 21:21 Dose: 1 applic Prochlorperazine Edisylate (Compazine Injection -) 2.5 mg IVPB Q3H PRN PRN Reason: NAUSEA AND/OR VOMITING Last Admin: 11/11/17 14:09 Dose: 2.5 mg Saliva Substitute (M[place] Solution -) 1 applic MM DAILY [facility] Last Admin: 11/13/17 10:27 Dose: 1 applic Tiotropium [place] (Spiriva -) 1 puff IH DAILY [facility] Last Admin: 11/13/17 10:27 Dose: 1 puff - Objective Vital Signs: Vital Signs Temperature 98.2 F 11/13/17 02:12 Pulse Rate 78 11/13/17 11:35 Respiratory Rate 16 11/13/17 11:35 Blood Pressure 145/75 11/13/17 11:35 O2 Sat by Pulse Oximetry (%) 96 11/13/17 10:00 Constitutional: Yes: Mild Distress Gastrointestinal: Yes: Soft, Distention. No: Tenderness, Tenderness, Rebound Neurological: Yes: Alert, Oriented Labs: CBC, BMP 11/13/17 05:30 11/13/17 05:30 Laboratory Last Values WBC 23.5 K/mm3 (4.0-10.0) H 11/13/17 05:30 RBC 4.91 M/mm3 (3.60-5.2) 11/13/17 05:30 Hgb 12.9 GM/dL (10.7-15.3) 11/13/17 05:30 Hct 42.7 % (32.4-45.2) 11/13/17 05:30 MCV 86.9 fl (80-96) 11/13/17 05:30 MCH 26.3 pg (25.7-33.7) 11/13/17 05:30 MCHC 30.3 g/dl (32.0-36.0) L 11/13/17 05:30 RDW 18.7 % (11.6-15.6) H 11/13/17 05:30 Plt Count 564 K/MM3 (134-434) H 11/13/17 05:30 MPV 10.9 fl (7.5-11.1) 11/13/17 05:30 Absolute Neuts (auto) 21.5 # 11/13/17 05:30 Total Counted 100 11/09/17 20:20 Neutrophils % 91.6 % (42.8-82.8) H 11/13/17 05:30 Neutrophils % (Manual) 88.0 % (42.8-82.8) H 11/12/17 06:15 Band Neutrophils % 5.0 % 11/12/17 06:15 Lymphocytes % 3.5 % (8-40) L D 11/13/17 05:30 Lymphocytes % (Manual) 3.0 % (8-40) L D 11/12/17 06:15 Monocytes % 2.7 % (3.8-10.2) L 11/13/17 05:30 Monocytes % (Manual) 2 % (3.8-10.2) L 11/12/17 06:15 Eosinophils % 1.8 % (0-4.5) 11/13/17 05:30 Eosinophils % (Manual) 0.0 % (0-4.5) 11/12/17 06:15 Basophils % 0.4 % (0-2.0) 11/13/17 05:30 Basophils % (Manual) 0.0 % (0-2.0) 11/12/17 06:15 Myelocytes % (Man) 0 % (0-2) 11/12/17 06:15 Promyelocytes % (Man) 0 % (0-2) 11/12/17 06:15 Blast Cells % (Manual) 0 % (0-0) 11/12/17 06:15 Nucleated RBC % 0 % (0-0) 11/13/17 05:30 Metamyelocytes 0 % (0-2) 11/12/17 06:15 Hypochromia 1+ 11/09/17 20:20 Platelet Estimate Increased 11/12/17 06:15 Platelet Comment Present 11/12/17 06:15 Polychromasia 2+ 11/10/17 05:50 Anisocytosis 1+ 11/12/17 06:15 Microcytosis 2+ 11/10/17 05:50 Macrocytosis 1+ 11/09/17 20:20 Tear Drop Cells 1+ 11/10/17 05:50 Ovalocytes 1+ 11/12/17 06:15 Anticoagulation Therapy No Result Required. 11/10/17 05:10 Puncture Site Left radial 11/10/17 05:10 ABG pH 7.37 (7.35-7.45) 11/10/17 05:10 ABG pCO2 at Pt Temp 53.4 mmHg (35-45) H 11/10/17 05:10 ABG pO2 at Pt Temp 82.7 mmHg (80-100) D 11/10/17 05:10 ABG HCO3 30.0 meq/L (22-26) H 11/10/17 05:10 ABG O2 Sat (Measured) 95.9 % (90-98.9) 11/10/17 05:10 ABG O2 Content 19.6 % vol (15-22) 11/10/17 05:10 ABG Base Excess 3.8 meq/l (-2-2) H 11/10/17 05:10 Hemanth Test Positive 11/10/17 05:10 O2 Delivery Device Bipap 11/10/17 05:10 Oxygen Flow Rate 40% 11/10/17 05:10 Vent Mode No Result Required. 11/10/17 05:10 Vent Rate No Result Required. 11/09/17 16:40 Mechanical Rate No Result Required. 11/10/17 05:10 PEEP 5.0 cmH2O 11/10/17 05:10 Pressure Support Vent No Result Required. 11/09/17 16:40 Sodium 145 mmol/L (136-145) 11/13/17 05:30 Potassium 4.1 mmol/L (3.5-5.1) 11/13/17 05:30 Plasma Potassium mmol/L (3.5-5.1) 11/10/17 12:40 Chloride 98 mmol/L (98-107) 11/13/17 05:30 Carbon Dioxide 44 mmol/L (21-32) H 11/13/17 05:30 Anion Gap 3 (8-16) L 11/13/17 05:30 BUN 58 mg/dL (7-18) H D 11/13/17 05:30 Creatinine 1.5 mg/dL (0.55-1.02) H 11/13/17 05:30 Creat Clearance w eGFR 34.64 (>60) 11/13/17 05:30 Random Glucose 95 mg/dL (74-106) 11/13/17 05:30 Lactic Acid 1.2 mmol/L (0.0-2.0) 11/09/17 20:20 Calcium 8.3 mg/dL (8.5-10.1) L 11/13/17 05:30 Phosphorus 2.9 mg/dL (2.5-4.9) 11/13/17 05:30 Magnesium 2.4 mg/dL (1.8-2.4) 11/13/17 05:30 Total Bilirubin 0.4 mg/dL (0.2-1.0) 11/12/17 06:15 AST 13 U/L (15-37) L 11/12/17 06:15 ALT 17 U/L (12-78) 11/12/17 06:15 Alkaline Phosphatase 65 U/L (45-117) 11/12/17 06:15 Ammonia 18.9 umol/L (11-32) 11/09/17 20:20 Creatine Kinase 34 IU/L (26-192) 11/09/17 20:20 Troponin I 0.04 ng/ml (0.00-0.05) 11/09/17 20:20 Total Protein 5.5 g/dl (6.4-8.2) L 11/12/17 06:15 Albumin 2.6 g/dl (3.4-5.0) L 11/12/17 06:15 Urine Color Dkyellow 11/09/17 15:00 Urine Appearance Slcloudy 11/09/17 15:00 Urine pH 5.0 (5.0-8.0) 11/09/17 15:00 Ur Specific [place] 1.018 (1.001-1.035) 11/09/17 15:00 Urine Protein 2+ (NEGATIVE) H 11/09/17 15:00 Urine Glucose (UA) Negative (NEGATIVE) 11/09/17 15:00 Urine Ketones Negative (NEGATIVE) 11/09/17 15:00 Urine Blood Negative (NEGATIVE) 11/09/17 15:00 Urine Nitrite Negative (NEGATIVE) 11/09/17 15:00 Urine Bilirubin Negative (<2.0 mg/dL) 11/09/17 15:00 Urine Urobilinogen Negative mg/dL (0.2-1.0) 11/09/17 15:00 Ur Leukocyte Esterase Negative (NEGATIVE) 11/09/17 15:00 Urine WBC (Auto) 1 /hpf (3-5) 11/09/17 15:00 Urine RBC (Auto) 1 /hpf (0-3) 11/09/17 15:00 Ur Epithelial Cells Rare /HPF (FEW) 11/09/17 15:00 Urine Bacteria Rare /hpf (NONE SEEN) 11/07/17 06:15 Urine Mucus Rare 11/09/17 15:00 Ur Random Sodium 18 MMOL/L 11/09/17 15:00 Ur Random Potassium 71.7 MMOL/L 11/09/17 15:00 Ur Random Chloride 31 MMOL/L 11/09/17 15:00 Urine Creatinine 117.0 mg/dL (20-320) 11/09/17 15:00 Stool Occult Blood Negative (NEGATIVE) 11/11/17 08:00 Problem List - Problems (1) Ileus Code(s): K56.7 - ILEUS, UNSPECIFIED (2) Acute on chronic respiratory failure with hypoxia and hypercapnia Code(s): J96.21 - ACUTE AND CHRONIC RESPIRATORY FAILURE WITH HYPOXIA; J96.22 - ACUTE AND CHRONIC RESPIRATORY FAILURE WITH HYPERCAPNIA (3) Sbejo-th-ntjcfka kidney injury Code(s): N17.9 - ACUTE KIDNEY FAILURE, UNSPECIFIED; N18.9 - CHRONIC KIDNEY DISEASE, UNSPECIFIED Qualifiers: Acute renal failure type: unspecified Chronic kidney disease stage: unspecified stage Qualified Code(s): N17.9 - Acute kidney failure, unspecified ; N18.9 - Chronic kidney disease, unspecified (4) Closed fracture of lumbar vertebral body Code(s): S32.009A - UNSP FRACTURE OF UNSP LUMBAR VERTEBRA, INIT FOR CLOS FX Assessment/Plan Partial SBO. Continue conservative care care.
[2017-11-13] MEDS ORDERED: [UNRECOGNIZED DRUG - OTHER] IVPB SCH (16:00)
[2017-11-13] MEDS ORDERED: SODIUM CHLORIDE IVPB SCH (16:00)
[2017-11-13] MEDS ORDERED: POTASSIUM CHLORIDE IVPB SCH (16:00)
[2017-11-13] MEDS ORDERED: POTASSIUM PHOSPHATE IVPB SCH (16:00)
--- NOTE | 2017-11-13 17:09 | PN ---
Teaching Attending Note Name of Resident: Margo Lewis ATTENDING PHYSICIAN STATEMENT I saw and evaluated the patient. I reviewed the resident's note and discussed the case with the resident. I agree with the resident's findings and plan as documented. SUBJECTIVE:remains nauseated. pain is controlled. +flatus. no BM. denies CP, SOB , fever, chills, OBJECTIVE: Last Vital Signs Temp Pulse Resp BP Pulse Ox 98.2 F 86 16 196/90 96 11/13/17 02:12 11/13/17 16:13 11/13/17 11:35 11/13/17 16:13 11/13/17 10:00 Intake & Output 11/10/17 11/11/17 11/12/17 11/13/17 23:59 23:59 23:59 23:59 Intake Total 1705 2750 2325 700 Output Total 5850 3950 2850 1650 Balance -4145 -1200 -525 -950 Weight 121 lb 1.6 oz 118 lb 14.4 oz 112 lb 12.8 oz 119 lb General NAD CV S1 S2 RRR no murmur/rub/gallop Lungs Coarse no wheezing/rales/rhonchi ABdomen soft +distended NT +tympanic to percussion. hypoactive BS Extremities no pedal edema ASSESSMENT AND PLAN: 67yo F with PMH COPD on home O2 3L NC, anxiety, myeloproliferative disorder, thrombophilia, diverticulosis s/p partial colectomy presented to the ER with low back pain 1. L1 vertebral fracture- likely steroid induced. evaluated by pain and Neurosurgery. on lidoderm patch. TLSO brace. should follow up with PMD for DEXA scan to evaluate for osteopenia 2. atrial tachycardia- did not respond to adenosine. HR mostly controlled. lopressor prn. will obtain echo. previous one from 05/2017. 3. SBO- ileus seen on CT scan. continues to have copious bile output from NGT. conservative management as pt is poor candidate for surgery. serial abdominal exams. daily AXR. NPO, IVF. pain and nausea control. GI and surgery on board. 4. Hyperkalemia- resolved 5. Elevated BP- not controlled. increase lopressor to q6H standing 6. acute on CKD- likely dehydration.FeNa <1%. likely dehydration. slowly improving. renal dose all medications.renal on board 7. Acute on chronic hypoxic/hypercapnic failure- due to PNA. likely aspiration. saturating well on 3L NC.pulmonary on board. 8. aspiration PNA- likely due to persistent vomiting. on yn day 5. would d/ c after today 9. myeloproliferative disorder- leukocytosis at baseline. holding ALL oral medications at this time based on degree SBO. no asa for possible surgery. heme on board 10. thrombophilia- at baseline. 11. anxiety- xanax prn 12. DVT ppx- hep sq 13. MICU monitoring. The care of this patient involved high complexity decision making to prevent further life threatening deterioration of the patient's condition and/or to evaluate & treat vital organ system(s) failure or risk of failure. Critical care time spent in reviewing chart, evaluating patient and formulating plan - 35 minutes.
--- NOTE | 2017-11-13 18:07 | PN ---
Physical Exam: SUBJECTIVE: Patient seen and examined. Drained up to 1050mls in 24hrs from NGT under suction. Nauseous but no vomiting. BP elevated overnight. C/o about being anxious and requesting ice chips. Has passed flatus. Yet to move bowel. Pain controlled well on iv tylenol. OBJECTIVE: Vital Signs Period Temp Pulse Resp BP Sys/[place]ios Pulse Ox Last 24 Hr 98 F-98.2 F 75-94 16-24 140-196/73-99 95-96 Vital Signs Temp 98 F 11/13/17 08:00 Pulse 90 11/13/17 21:28 Resp 20 11/13/17 20:00 BP 154/90 11/13/17 21:28 Pulse Ox 96 11/13/17 20:00 Intake & Output 11/12/17 11/13/17 11/13/17 23:59 11:59 23:59 Intake Total 4122 158 7390 Output Total 1450 1050 1100 Balance 0 -350 -25 Weight 53.977 kg 53.977 kg Intake: IV 1377 517 8572 D5w - 1,000 ml @ 100 mls/ 1250 700 500 hr IV ASDIR RANDI Rx#: [id number] Normal Saline - 1,000 ml 525 @ 75 mls/hr IV ASDIR RANDI Rx#:[id number] IVPB 200 Oral 50 Output: Gastric Drainage 450 550 500 Urine 1000 500 600 Tillman 1000 500 600 Other: Voiding Method Indwelling Catheter Indwelling Catheter Indwelling Catheter Bowel Movement No No Height 1.63 m Body Mass Index (BMI) 20.4 Weight Measurement Method Built in [facility] Intake & Output 11/10/17 11/11/17 11/12/17 11/13/17 23:59 23:59 23:59 23:59 Intake Total 1705 2750 2325 1775 Output Total 5850 3950 2850 2150 Balance -4145 -1200 -525 -375 Weight 54.93 kg 53.932 kg 51.165 kg 53.977 kg GENERAL: NGT in place. The patient is awake, alert, in no acute respiratory distress ENT: NGT and NC- oxygen in place LUNGS: Few wheezes and crackles HEART: Regular rate and rhythm, S1, S2 without murmur ABDOMEN: Soft, non tender, mildly distended, hypoactive bowel sounds EXTREMITIES: 2+ pulses, warm, well-perfused, no edema. Bilateral varicose veins NEUROLOGICAL: AAOx3. No facial droop. Able to move all limbs CBC, BMP 11/13/17 05:30 11/13/17 05:30 Laboratory Results - last 24 hr 11/13/17 11/13/17 05:30 05:30 WBC 23.5 H RBC 4.91 Hgb 12.9 Hct 42.7 MCV 86.9 MCH 26.3 MCHC 30.3 L RDW 18.7 H Plt Count 564 H MPV 10.9 Absolute Neuts (auto) 21.5 Neutrophils % 91.6 H Lymphocytes % 3.5 L D Monocytes % 2.7 L Eosinophils % 1.8 Basophils % 0.4 Nucleated RBC % 0 Sodium 145 Potassium 4.1 Chloride 98 Carbon Dioxide 44 H Anion Gap 3 L BUN 58 H D Creatinine 1.5 H Creat Clearance w eGFR 34.64 Random Glucose 95 Calcium 8.3 L Phosphorus 2.9 Magnesium 2.4 Current Medications Acetaminophen (Ofirmev Injection -) 1,000 mg IVPB Q6H PRN PRN Reason: PAIN LEVEL 4 - 6 Last Admin: 11/13/17 22:13 Dose: 1,000 mg Albuterol Sulfate (Ventolin 0.083% Nebulizer Soln -) 1 amp NEB Q4H PRN PRN Reason: SHORT OF BREATH/WHEEZING Chlorhexidine Gluconate (Hibiclens For Decolonization -) 1 applic TP HS [facility] Last Admin: 11/13/17 21:29 Dose: 1 applic Heparin Sodium (Porcine) (Heparin -) 5,000 unit SQ TID [facility] Last Admin: 11/13/17 21:28 Dose: 5,000 unit IV Flush (Picc Line Flush) 8 ml IVPUSH PRN PRN PRN Reason: Protocol Ampicillin Sodium/Sulbactam (Sodium 1.5 gm/ Sodium Chloride) 100 mls @ 200 mls/ hr IVPB BID [facility] Last Admin: 11/13/17 21:56 Dose: 200 mls/hr Dextrose/Sodium Chloride (D5-1/2ns -) 1,000 mls @ 83 mls/hr IV ASDIR [facility] Last Admin: 11/13/17 20:00 Dose: 83 mls/hr Lorazepam (Ativan Injection -) 0.5 mg IVPUSH Q6H PRN PRN Reason: ANXIETY Last Admin: 11/13/17 22:13 Dose: 0.5 mg Metoprolol Tartrate (Lopressor Injection -) 5 mg IVPUSH Q6H-IV RANDI Last Admin: 11/13/17 21:28 Dose: 5 mg Mupirocin (Bactroban Ointment (For Decolonization) -) 1 applic NS BID RANDI Stop: 11/16/17 07:59 Last Admin: 11/13/17 21:28 Dose: 1 applic Prochlorperazine Edisylate (Compazine Injection -) 2.5 mg IVPB Q3H PRN PRN Reason: NAUSEA AND/OR VOMITING Last Admin: 11/11/17 14:09 Dose: 2.5 mg Saliva Substitute ([place] Solution -) 1 applic MM DAILY RANDI Last Admin: 11/13/17 10:27 Dose: 1 applic Tiotropium [place] (Spiriva -) 1 puff IH DAILY [facility] Last Admin: 11/13/17 10:27 Dose: 1 puff Ambulatory Orders Albuterol Sulfate [Proair Hfa -] 1 - 2 inh PO PRN PRN 01/28/14 Alprazolam [Xanax] 0.25 mg PO PRN PRN 07/21/16 Anagrelide HCl [Agrylin -] 0.5 mg PO TID 11/14/16 Linaclotide [Linzess] 72 mcg PO Q2D 02/06/17 Albuterol 0.083% Nebulizer [place] [Ventolin 0.083% Nebulizer Soln -] 1 amp NEB Q4H PRN amp 06/24/17 Aspirin [ASA -] 81 mg PO DAILY tab.chew 06/24/17 Hydroxyurea [Hydrea 500Mg Capsule -] 500 mg PO MoWeFr@1000 capsule 06/24/17 Allopurinol [Zyloprim -] 200 mg PO DAILY 10/25/17 Roflumilast [Daliresp -] 500 mcg PO Q2D 10/25/17 Tiotropium [place] [Spiriva] 1 inh IH DAILY 10/25/17 traZODone HCL [Desyrel -] 100 mg PO HS 10/25/17 Oxycodone HCl/Acetaminophen [Percocet 5-325 mg Tablet] 1 - 2 tab PO Q6H PRN #20 tab MDD 8 tabs 10/31/17 Prednisone [Deltasone] 20 mg PO DAILY 11/08/[address] without contrast 11/06/17: Acute L1 vertebral body compression fracture CT abd w/o contrast- likely ileus- AXR- showed ileus R/O bowel obstruction Background chronically shrunken kidneys- abd/pelvic US-showing bladder and kidneys ASSESSMENT/PLAN: Patient is a 67 year old female with significant past medical history of COPD on 3 L and steroids , MPD on aspirin, thrombocytosis, Hepatosplenomegaly, CKD, anxiety, cardiomegaly, h/o of floaters, h/o diverticulitis s/p partial colectomy presented with severe left sided lower back pain, found to have L1 lumbar compression fracture, had Atrial tachycardia, intractable vomiting with AMS and aspiration PNA, found to have ileus Ileus with partial SBO Cont NPO, pt tolerating ice chips, now with flatus and hypoactive bowel sounds NGT had been on continous suction with high drainage, to transition to intermittent drainage per ICU Tillman GI consult- apprec recs Sx consult- apprec recs Monitor Uncontrolled BP Increase Lopressor from Q8H to Q6H To add hydralazine if still non responsive Acute metabolic encephalopathy Likely due to sepsis with aspiration PNA Pt back to baseline Cont Unasyn Cont fluids #Acute on chronic respiratory failure Improved, Pt on nasal cannular likely secondary to aspiration PNA from vomiting and AMS Pt NPO, with AMS reversed Pt on 3L home oxygen with COPD #Aspiration PNA Continue Unasyn Aspiration precautions Oxygen as needed #Tachycardia-likely atrial tachycardia Now sinus tachy Appeared like SVT but did not break with adenosine or cardizem Pt maintained on lopressor due to failed cardizem Cardiol-Dr Thomas appreciate recs Cont environmental monitoring specialist # Anxiety Cont Iv ativan 0.5 Q6H # Lower back pain likely due to acute L1 vertebral body compression fracture Could be due to chronic steroid use Fentanyl patch As per Dr. Morales -TLSO brace for comfort Will need outpatient DEXA scan and workup for osteoporosis Lidocaine patch- for local action to minimize systemic side effects # Hyperkalemia normalized Pseudo hyperkalemia Plasma K lower Nephro on board Oncology on board # COPD: Not in exacerbation continue Oxygen supplementation Steroids dcd # CKD: Cr -improving Cr-back to baseline of 1.5 FeUrea- prerenal picture Likely due to dehydration from vomiting Avoid nephrotoxic substances Cont Iv hydration Nephro on board # Myeloproliferative Disorder: Agrilyn on hold as pt is NPO Apprec recs-hemonc - per Dr Medrano #Chest pain Resolved in am Could be musculoskeletal related to retching R/O ACS Pt is currently tachycardic- could be due to anxiety or pain ativan 0.5mg Q6h prn # IBS Hold Linaclotide #hypernatremia Reversed on D5W # Prophylaxis For DVT: On Heparin 5000 IU sq TID For GI: Not indicated # FEN IV NS @ 75mls/hr for Acute on chronic CKD, Monitor lytes NPO # Dispo: ICU, pending return of bowel function Visit type - Emergency Visit Emergency Visit: Yes ED Registration Date: 11/09/17 Care time: The patient presented to the Emergency Department on the above date and was hospitalized for further evaluation of their emergent condition. - New Patient This patient is new to me today: No - Critical Care Critical Care patient: Yes Total Critical Care Time (in minutes): 40 Critical Care Statement: The care of this patient involved high complexity decision making to prevent further life threatening deterioration of the patient 's condition and/or to evaluate & treat vital organ system(s) failure or risk of failure. - Discharge Referral Referred to [facility] Med [facility] No
--- NOTE | 2017-11-13 18:20 | PN ---
Progress Note (short form) - Note Progress Note: Patient seen and examined requesting ice chips feels tired Last Vital Signs Temp Pulse Resp BP Pulse Ox 98 F 86 20 196/90 96 11/13/17 08:00 11/13/17 16:13 11/13/17 16:00 11/13/17 16:13 11/13/17 10:00 Cor: RSR, No murmurs, No gallops Lungs: Clear to P&A Abd: Soft, Normal bowel sounds, No organomegaly Ext:No significant edema Abnormal Lab Results 11/13/17 11/13/17 05:30 05:30 WBC 23.5 H MCHC 30.3 L RDW 18.7 H Plt Count 564 H Neutrophils % 91.6 H Lymphocytes % 3.5 L D Monocytes % 2.7 L Carbon Dioxide 44 H Anion Gap 3 L BUN 58 H D Creatinine 1.5 H Calcium 8.3 L Active Medications Generic Name Dose Route Start Last Admin Trade Name Freq PRN Reason Stop Dose Admin Acetaminophen 1,000 mg 11/13/17 16:05 11/13/17 16:19 Ofirmev Injection - IVPB 1,000 mg Q6H PRN Administration PAIN LEVEL 4 - 6 Albuterol Sulfate 1 amp 11/11/17 07:07 Ventolin 0.083% Nebulizer Soln - NEB Q4H PRN SHORT OF BREATH/WHEEZING Chlorhexidine Gluconate 1 applic 11/11/17 07:07 11/12/17 21:21 Hibiclens For Decolonization - TP 1 applic HS RANDI Administration Heparin Sodium (Porcine) 5,000 unit 11/11/17 14:00 11/13/17 15:11 Heparin - SQ 5,000 unit TID RANDI Administration IV Flush 8 ml 11/13/17 11:23 Picc Line Flush IVPUSH PRN PRN Protocol Ampicillin Sodium/Sulbactam 100 mls @ 200 mls/hr 11/11/17 10:00 11/13/17 10: 27 Sodium 1.5 gm/ Sodium Chloride IVPB 200 mls/hr BID RANDI Administration Dextrose 1,000 mls @ 100 mls/hr 11/12/17 08:30 11/13/17 10:27 D5w - IV 100 mls/hr ASDIR RANDI Administration Lorazepam 0.5 mg 11/12/17 02:22 11/13/17 16:23 Ativan Injection - IVPUSH 0.5 mg Q6H PRN Administration ANXIETY Metoprolol Tartrate 5 mg 11/13/17 15:00 11/13/17 16:13 Lopressor Injection - IVPUSH 5 mg Q6H-IV RANDI Administration Mupirocin 1 applic 11/11/17 08:00 11/13/17 10:00 Bactroban Ointment (For Decolonization) - NS 11/16/17 07:59 1 applic BID RANDI Administration Prochlorperazine Edisylate 2.5 mg 11/11/17 07:07 11/11/17 14:09 Compazine Injection - IVPB 2.5 mg Q3H PRN Administration NAUSEA AND/OR VOMITING Saliva Substitute 1 applic 11/10/17 16:15 11/13/17 10:27 M[place] Solution - MM 1 applic DAILY RANDI Administration Tiotropium [place] 1 puff 11/11/17 10:00 11/13/17 10:27 Spiriva - IH 1 puff DAILY RANDI Administration A/P 67yo F with PMH COPD on home O2 3L NC, anxiety, myeloproliferative disorder, thrombophilia, diverticulosis s/p partial colectomy presented to the ER with low back pain 1. L1 vertebral fracture- likely steroid induced. evaluated by pain and Neurosurgery. on lidoderm patch. TLSO brace. 2. atrial tachycardia- 3. SBO- ileus seen on CT scan. continues to have copious bile output from NGT. conservative management as pt is poor candidate for surgery. 4. acute on CKD- improving 5. MPD--off ASA/hydrea due to ileus On heparin SC
[2017-11-13] MEDS ORDERED: SODIUM CHLORIDE 1,000 ML IV SCH (18:45)
[2017-11-13] MEDS ORDERED: DEXTROSE 5%-0.45% SALINE 1,000 ML IV SCH (20:00)
--- NOTE | 2017-11-13 20:06 | PN ---
Progress Note, Physician History of Present Illness: Pt seen and examined in bed in ICU. She is resting comfortably, states she feels "lousy." Pain is less, mostly "gas pains" on left side of abdomen. She has passed a little gas. NGT put out about 700ml overnight, 400ml since am, now light/herman. No BM yet. - Current Medication List Current Medications: Active Medications Acetaminophen (Ofirmev Injection -) 1,000 mg IVPB Q6H PRN PRN Reason: PAIN LEVEL 4 - 6 Last Admin: 11/13/17 16:19 Dose: 1,000 mg Albuterol Sulfate (Ventolin 0.083% Nebulizer Soln -) 1 amp NEB Q4H PRN PRN Reason: SHORT OF BREATH/WHEEZING Chlorhexidine Gluconate (Hibiclens For Decolonization -) 1 applic TP HS RANDI Last Admin: 11/12/17 21:21 Dose: 1 applic Heparin Sodium (Porcine) (Heparin -) 5,000 unit SQ TID RANDI Last Admin: 11/13/17 15:11 Dose: 5,000 unit IV Flush (Picc Line Flush) 8 ml IVPUSH PRN PRN PRN Reason: Protocol Ampicillin Sodium/Sulbactam (Sodium 1.5 gm/ Sodium Chloride) 100 mls @ 200 mls/ hr IVPB BID RANDI Last Admin: 11/13/17 10:27 Dose: 200 mls/hr Dextrose/Sodium Chloride (D5-1/2ns -) 1,000 mls @ 83 mls/hr IV ASDIR RANDI Lorazepam (Ativan Injection -) 0.5 mg IVPUSH Q6H PRN PRN Reason: ANXIETY Last Admin: 11/13/17 16:23 Dose: 0.5 mg Metoprolol Tartrate (Lopressor Injection -) 5 mg IVPUSH Q6H-IV RANDI Last Admin: 11/13/17 16:13 Dose: 5 mg Mupirocin (Bactroban Ointment (For Decolonization) -) 1 applic NS BID [facility] Stop: 11/16/17 07:59 Last Admin: 11/13/17 10:00 Dose: 1 applic Prochlorperazine Edisylate (Compazine Injection -) 2.5 mg IVPB Q3H PRN PRN Reason: NAUSEA AND/OR VOMITING Last Admin: 11/11/17 14:09 Dose: 2.5 mg Saliva Substitute ([place] Solution -) 1 applic MM DAILY RANDI Last Admin: 11/13/17 10:27 Dose: 1 applic Tiotropium [place] (Spiriva -) 1 puff IH DAILY [facility] Last Admin: 11/13/17 10:27 Dose: 1 puff - Objective Vital Signs: Vital Signs Temperature 98 F 11/13/17 08:00 Pulse Rate 86 11/13/17 16:13 Respiratory Rate 20 11/13/17 16:00 Blood Pressure 196/90 11/13/17 16:13 O2 Sat by Pulse Oximetry (%) 96 11/13/17 10:00 Constitutional: Yes: Well Nourished, No Distress, Calm Eyes: Yes: Conjunctiva Clear, EOM Intact HENT: Yes: Atraumatic, Normocephalic, Other (NGT) Gastrointestinal: Yes: Soft, Distention (somewhat less, soft). No: Tenderness ( no direct tenderness) ...Rectal Exam: Yes: Deferred Genitourinary: Yes: Tillman Present. No: Hematuria Extremities: No: Cool, Cyanosis Integumentary: No: Jaundice, Rash Neurological: Yes: Alert, Oriented Labs: CBC, BMP 11/13/17 05:30 11/13/17 05:30 BUN/Cr down further wbc, plts stable - ....Imaging X-ray: Image Reviewed (AXR done tonight - images personally reviewed - still with gas-distended loops in central abdomen, possibly a little gas in distal colon but difficult to tell; report pending (abd supine view only, upright is chest - both portable)) Problem List - Problems (1) Small bowel obstruction due to adhesions Assessment/Plan: distal SBO likely related to adhesions, may be partial since pt is now passing some gas continue NGT to LCWS NPO - NO MEDS or anything via tube for now IVF, UOP ok pain meds prn - avoid narcotics and NSAIDs as able IV Tylenol ordered NG output decreasing will consider PO contrast via tube and serial imaging to follow through GI on board holding aspirin and agrylin This patient is critically ill. Time spent reviewing chart, examining patient, talking with providers and/or family and documentation is 35 minutes. Code(s): K56.50 - INTESTNL ADHESIONS, UNSP TO PARTIAL VERSUS COMPLETE OBST (2) Ileus Code(s): K56.7 - ILEUS, UNSPECIFIED (3) Constipation Code(s): K59.00 - CONSTIPATION, UNSPECIFIED Qualifiers: Constipation type: drug induced constipation Qualified Code(s): K59.03 - Drug induced constipation (4) Irritable bowel syndrome with constipation Code(s): K58.1 - IRRITABLE BOWEL SYNDROME WITH CONSTIPATION (5) Compression fracture of lumbar vertebra Assessment/Plan: TLSO brace when up as per neuro/spine Code(s): S32.000A - WEDGE COMPRESSION FRACTURE OF UNSP LUMBAR VERTEBRA, INIT Qualifiers: Encounter type: initial encounter Lumbar vertebra fracture level: L1 Fracture type: closed Qualified Code(s): S32.010A - Wedge compression fracture of first lumbar vertebra, initial encounter for closed fracture (6) Gpcyz-co-rbouqgr kidney injury Assessment/Plan: renal on board, BUN/Cr improving continue IVF/NPO/NGT monitor lytes closely Code(s): N17.9 - ACUTE KIDNEY FAILURE, UNSPECIFIED; N18.9 - CHRONIC KIDNEY DISEASE, UNSPECIFIED Qualifiers: Acute renal failure type: unspecified Chronic kidney disease stage: unspecified stage Qualified Code(s): N17.9 - Acute kidney failure, unspecified ; N18.9 - Chronic kidney disease, unspecified (7) Paroxysmal supraventricular tachycardia Code(s): I47.1 - SUPRAVENTRICULAR TACHYCARDIA (8) Abdominal pain Code(s): R10.9 - UNSPECIFIED ABDOMINAL PAIN Qualifiers: Abdominal location: lower abdomen, unspecified Qualified Code(s): R10.30 - Lower abdominal pain, unspecified (9) Anxiety Code(s): F41.9 - ANXIETY DISORDER, UNSPECIFIED (10) COPD (chronic obstructive pulmonary disease) Assessment/Plan: on venti mask tonight, sats in high 70s with nasal cannula only avoid bipap to avoid gastric distention per ICU, low threshold for intubation pulmonary changes at bases poss from aspiration encourage pulm toilet - encourage IS, pulm toilet Code(s): J44.9 - CHRONIC OBSTRUCTIVE PULMONARY DISEASE, UNSPECIFIED Qualifiers: COPD type: unspecified COPD Qualified Code(s): J44.9 - Chronic obstructive pulmonary disease, unspecified (11) Essential thrombocytosis Assessment/Plan: cannot continue PO meds at this time hematology following Code(s): D47.3 - ESSENTIAL (HEMORRHAGIC) THROMBOCYTHEMIA (12) Myeloproliferative disorder Code(s): D47.1 - CHRONIC MYELOPROLIFERATIVE DISEASE
[2017-11-13] MEDS: CHLORHEXIDINE GLUCONATE 4% CLEANSER FOR DECOLONIZATION TP SCH (21:29)
[2017-11-14] MEDS: METOPROLOL TARTRATE 5 MG/5 ML VIAL IVPUSH SCH ×4 (02:11→21:53)
[2017-11-14] MEDS: LORazepam 2 MG/ML SDV VIAL IVPUSH PRN ×3 (04:52→22:00)
[2017-11-14] MEDS: HEPARIN NA (PORCINE) 5,000 UNITS/ML 1ML VIAL SQ SCH ×3 (05:41→21:52)
[2017-11-14 06:16] LABS: BASO % 0.5 % (0-2.0); EOS % 1.2 % (0-4.5); HEMATOCRIT 44.6 % (32.4-45.2); HEMOGLOBIN 13.2 GM/dL (10.7-15.3); LYMPH % 2.8 % (8-40); MCH 25.9 pg (25.7-33.7); MCHC 29.6 g/dl (32.0-36.0); MEAN CELL VOLUME 87.6 fl (80-96); MEAN PLT VOLUME 9.3 fl (7.5-11.1); MONO % 2.4 % (3.8-10.2); NEUT % 93.1 % (42.8-82.8); PLATELET COUNT 529 K/MM3 (134-434); RBC 5.09 M/mm3 (3.60-5.2); RDW 18.7 % (11.6-15.6); WHITE BLOOD COUNT 25.3 K/mm3 (4.0-10.0)
[2017-11-14] MEDS ORDERED: hydrALAZINE HCL 20 MG/ML VIAL IVPUSH PRN (06:39)
[2017-11-14 06:45] LABS: CALCIUM 8.4 mg/dL (8.5-10.1); CHLORIDE 98 mmol/L (98-107); POTASSIUM 4.3 mmol/L (3.5-5.1); SODIUM 144 mmol/L (136-145)
[2017-11-14 06:51] LABS: ALBUMIN 2.6 g/dl (3.4-5.0); ALK PHOS 79 U/L (45-117); ANION GAP 5 (8-16); BILIRUBIN,TOTAL 0.6 mg/dL (0.2-1.0); BLOOD UREA NITROGEN 46 mg/dL (7-18); CO2 41 mmol/L (21-32); CREATININE 1.3 mg/dL (0.55-1.02); GLUCOSE,RANDOM 95 mg/dL (74-106); MAGNESIUM 2.2 mg/dL (1.8-2.4); PHOSPHOROUS 2.9 mg/dL (2.5-4.9); SGOT/AST 14 U/L (15-37); SGPT/ALT 15 U/L (12-78); TOT PROT 5.2 g/dl (6.4-8.2)
--- NOTE | 2017-11-14 07:39 | PN ---
Progress Note (short form) - Note Progress Note: Chief Complaint: Events noted, notes reviewed, reports dyspnea, denies any chest pain, complaining of nausea but severity decreased, sinus rhythm is noted History of Present Illness: Seen and examined in the ICU. Events noted, notes reviewed, reports dyspnea, denies any chest pain, complaining of nausea but severity decreased, sinus rhythm is noted Remains NPO, abdominal distention related to ileus is persistent, evaluation and management is in progress As outlined in prior notes 12 lead EKG noted at the time of the tachycardia, probable ectopic atrial tachycardia vs. sinus tachycardia, since patient did not respond to Adenosine therapy my suspicion that there is no AV aleksandra involvement in the pathway Echocardiography dated Jun 20, 2017 revealed normal LV size (hyperdynamic) and function, trace MR, TR moderate pulmonary HTN with RVSP 47 mmHg - Current Medication List Current Medications: Current Medications Acetaminophen (Ofirmev Injection -) 1,000 mg IVPB Q6H PRN PRN Reason: PAIN LEVEL 4 - 6 Last Admin: 11/13/17 22:13 Dose: 1,000 mg Albuterol Sulfate (Ventolin 0.083% Nebulizer Soln -) 1 amp NEB Q4H PRN PRN Reason: SHORT OF BREATH/WHEEZING Chlorhexidine Gluconate (Hibiclens For Decolonization -) 1 applic TP HS [facility] Last Admin: 11/13/17 21:29 Dose: 1 applic Heparin Sodium (Porcine) (Heparin -) 5,000 unit SQ TID [facility]I Last Admin: 11/14/17 05:41 Dose: 5,000 unit Hydralazine HCl (Apresoline Injection -) 10 mg IVPUSH Q6H PRN PRN Reason: HYPERTENSION IV Flush (Picc Line Flush) 8 ml IVPUSH PRN PRN PRN Reason: Protocol Dextrose/Sodium Chloride (D5-1/2ns -) 1,000 mls @ 83 mls/hr IV ASDIR RANDI Last Admin: 11/13/17 20:00 Dose: 83 mls/hr Lorazepam (Ativan Injection -) 0.5 mg IVPUSH Q6H PRN PRN Reason: ANXIETY Last Admin: 11/14/17 04:52 Dose: 0.5 mg Metoprolol Tartrate (Lopressor Injection -) 5 mg IVPUSH Q6H-IV RANDI Last Admin: 11/14/17 02:11 Dose: 5 mg Mupirocin (Bactroban Ointment (For Decolonization) -) 1 applic NS BID [facility] Stop: 11/16/17 07:59 Last Admin: 11/13/17 21:28 Dose: 1 applic Prochlorperazine Edisylate (Compazine Injection -) 2.5 mg IVPB Q3H PRN PRN Reason: NAUSEA AND/OR VOMITING Last Admin: 11/11/17 14:09 Dose: 2.5 mg Saliva Substitute (Mouthk[place] Solution -) 1 applic MM DAILY [facility] Last Admin: 11/13/17 10:27 Dose: 1 applic Tiotropium [place] (Spiriva -) 1 puff IH DAILY [facility] Last Admin: 11/13/17 10:27 Dose: 1 puff Review of Systems Cardiovascular: As noted above Respiratory: denies: Cough or Sputum Production Gastrointestinal: denies: Vomiting, Diarrhea, Constipation or Abdominal Discomfort but reports Nausea and Abdominal Distention Musculoskeletal: No Symptoms Reported Endocrine: No Symptoms Reported - Objective Vital Signs: Last Vital Signs Temp Pulse Resp BP Pulse Ox 98.2 F 80 22 170/80 96 11/14/17 06:00 11/14/17 06:00 11/14/17 06:00 11/14/17 06:00 11/13/17 22:00 Intake & Output 11/11/17 11/12/17 11/13/17 11/14/17 23:59 23:59 23:59 23:59 Intake Total 2750 2325 1775 1146 Output Total 3950 2850 2500 700 Balance -3419 -525 -725 446 Weight 118 lb 14.4 oz 112 lb 12.8 oz 119 lb 118 lb 14.4 oz Constitutional: Mild Distress, Thin Neck: Supple Negative JVD Cardiovascular: S1 S2 Regular Rate Rhythm Respiratory: Diminished at the Bases Gastrointestinal: Abdominal Distention Hyperactive Bowel Sounds Ext: No Edema Labs: CBC, BMP 11/14/17 05:30 11/14/17 05:30 Assessment/Plan ASSESSMENT: 1. PSVT ectopic atrial tachycardia vs. sinus tachycardia, unlikely to be AV aleksandra reentrant or accessory pathway mediated tachycardia (Adenosine non responsive) 2. Acute on chronic hypercapneic, hypoxic respiratory failure, pneumonia possible aspiration, resolving 3. COPD, on chronic steroid and home O2 dependent 4. Hypertension 5. Myelo-proliferative disorder 6. Acute on CKD with hyperkalemia (Hyperkalemia resolved) 7. Nausea most likely related to ileus, persistent ileus 8. Lumber spine compression fracture PLAN: 1. Antibiotics as per the primary 2. Bronchodilators as per the primary team 3. Continue IV Lopressor but change to Q6-8h administration, hemodynamics permitting 4. Management of ileus as per primary team Ca Cannon MD
[2017-11-14] MEDS ORDERED: PT OWN MED DRAWER 7, Y5N ONE ×3 (08:27→18:34)
--- NOTE | 2017-11-14 08:42 | PN ---
Physical Exam: SUBJECTIVE: Patient seen and examined. C/O of SOB, was off ventimask. NGT now intermittent suction. Pt requesting ice chips constantly. Received ativan round the clock for anxiety. OBJECTIVE: Vital Signs Period Temp Pulse Resp BP Sys/Palacios Pulse Ox Last 24 Hr 98.2 F-98.8 F 69-90 16-23 134-196/70-93 50-96 Vital Signs Temp 98.2 F 11/14/17 06:00 Pulse 86 11/14/17 08:00 Resp 20 11/14/17 08:00 BP 163/88 11/14/17 08:00 Pulse Ox 96 11/13/17 22:00 Intake & Output 11/13/17 11/13/17 11/14/17 11:59 23:59 11:59 Intake Total 700 1075 1146 Output Total 1050 1450 700 Balance -350 -375 446 Weight 53.977 kg 53.977 kg 53.932 kg Intake: IV 700 1025 996 D5-1/2Ns - 1,000 ml @ 83 996 mls/hr IV ASDIR RANDI Rx#: [id number] D5w - 1,000 ml @ 100 mls/ 700 500 hr IV ASDIR RANDI Rx#: [id number] Normal Saline - 1,000 ml 525 @ 75 mls/hr IV ASDIR RANDI Rx#:[id number] IVPB 100 Oral 50 50 Output: Gastric Drainage 550 500 300 Urine 500 950 400 Tillman 500 950 400 Other: Voiding Method Indwelling Catheter Indwelling Catheter Bowel Movement No No No Height 1.63 m Body Mass Index (BMI) 20.4 Weight Measurement Method Built in [facility] Built [facility] Intake & Output 11/11/17 11/12/17 11/13/17 11/14/17 23:59 23:59 23:59 23:59 Intake Total 2750 2325 1775 1146 Output Total 3950 2850 2500 700 Balance -1200 -525 -725 446 Weight 53.932 kg 51.165 kg 53.977 kg 53.932 kg GENERAL: The patient is drowsy but arousable. Slept with ventimask off. Was sating at 95% with ventimask @50%, tachypneic. ENT: moist mucous membranes. NGT still draining bilous fluid NECK: supple. LUNGS: Breath sounds reduced at lung bases. no wheezes, no crackles HEART: Regular rate and rhythm, S1, S2 without murmur ABDOMEN: Soft, non tender, mildly distended, hypoactive bowel sounds EXTREMITIES: 2+ pulses, warm, well-perfused, no edema. Bilateral varicose veins NEUROLOGICAL: Oriented x3. Normal speech, gait not observed. PSYCH: Normal mood, normal affect. SKIN: Warm, dry, normal turgor, no rashes or lesions noted CBC, BMP 11/14/17 05:30 11/14/17 05:30 Laboratory Results - last 24 hr 11/13/17 11/14/17 11/14/17 05:30 05:30 05:30 WBC 25.3 H RBC 5.09 Hgb 13.2 Hct 44.6 MCV 87.6 MCH 25.9 MCHC 29.6 L RDW 18.7 H Plt Count 529 H MPV 9.3 D Absolute Neuts (auto) 23.6 Neutrophils % 93.1 H Neutrophils % (Manual) No Result Required. Lymphocytes % 2.8 L Monocytes % 2.4 L Eosinophils % 1.2 Basophils % 0.5 Nucleated RBC % 0 Sodium 144 Potassium 4.3 Chloride 98 Carbon Dioxide 41 H Anion Gap 5 L BUN 46 H Creatinine 1.3 H Creat Clearance w eGFR 40.86 Random Glucose 95 Calcium 8.4 L Phosphorus 2.9 Magnesium 2.2 Total Bilirubin 0.6 D AST 14 L ALT 15 Alkaline Phosphatase 79 Total Protein 5.2 L Albumin 2.6 L Current Medications Acetaminophen (Ofirmev Injection -) 1,000 mg IVPB Q6H PRN PRN Reason: PAIN LEVEL 4 - 6 Last Admin: 11/13/17 22:13 Dose: 1,000 mg Albuterol Sulfate (Ventolin 0.083% Nebulizer Soln -) 1 amp NEB Q4H PRN PRN Reason: SHORT OF BREATH/WHEEZING Chlorhexidine Gluconate (Hibiclens For Decolonization -) 1 applic TP HS [facility] Last Admin: 11/13/17 21:29 Dose: 1 applic Heparin Sodium (Porcine) (Heparin -) 5,000 unit SQ TID RANDI Last Admin: 11/14/17 05:41 Dose: 5,000 unit Hydralazine HCl (Apresoline Injection -) 10 mg IVPUSH Q6H PRN PRN Reason: HYPERTENSION IV Flush (Picc Line Flush) 8 ml IVPUSH PRN PRN PRN Reason: Protocol Dextrose/Sodium Chloride (D5-1/2ns -) 1,000 mls @ 83 mls/hr IV ASDIR RANDI Last Admin: 11/13/17 20:00 Dose: 83 mls/hr Lorazepam (Ativan Injection -) 0.5 mg IVPUSH Q6H PRN PRN Reason: ANXIETY Last Admin: 11/14/17 04:52 Dose: 0.5 mg Metoprolol Tartrate (Lopressor Injection -) 5 mg IVPUSH Q6H-IV RANDI Last Admin: 11/14/17 08:36 Dose: 5 mg Mupirocin (Bactroban Ointment (For Decolonization) -) 1 applic NS BID [facility] Stop: 11/16/17 07:59 Last Admin: 11/13/17 21:28 Dose: 1 applic Prochlorperazine Edisylate (Compazine Injection -) 2.5 mg IVPB Q3H PRN PRN Reason: NAUSEA AND/OR VOMITING Last Admin: 11/11/17 14:09 Dose: 2.5 mg Saliva Substitute ([place]outh[place] Solution -) 1 applic MM DAILY [facility] Last Admin: 11/13/17 10:27 Dose: 1 applic Tiotropium [place] (Spiriva -) 1 puff IH DAILY [facility] Last Admin: 11/13/17 10:27 Dose: 1 puff Ambulatory Orders Albuterol Sulfate [Proair Hfa -] 1 - 2 inh PO PRN PRN 01/28/14 Alprazolam [Xanax] 0.25 mg PO PRN PRN 07/21/16 Anagrelide HCl [Agrylin -] 0.5 mg PO TID 11/14/16 Linaclotide [Linzess] 72 mcg PO Q2D 02/06/17 Albuterol 0.083% Nebulizer [place]ika [Ventolin 0.083% Nebulizer Soln -] 1 amp NEB Q4H PRN amp 06/24/17 Aspirin [ASA -] 81 mg PO DAILY tab.chew 06/24/17 Hydroxyurea [Hydrea 500Mg Capsule -] 500 mg PO MoWeFr@1000 capsule 06/24/17 Allopurinol [Zyloprim -] 200 mg PO DAILY 10/25/17 Roflumilast [Daliresp -] 500 mcg PO Q2D 10/25/17 Tiotropium [place] [Spiriva] 1 inh IH DAILY 10/25/17 traZODone HCL [Desyrel -] 100 mg PO HS 10/25/17 Oxycodone HCl/Acetaminophen [Percocet 5-325 mg Tablet] 1 - 2 tab PO Q6H PRN #20 tab MDD 8 tabs 10/31/17 Prednisone [Deltasone] 20 mg PO DAILY 11/08/17 ASSESSMENT/PLAN: Lumbar spine CT without contrast 11/06/17: Acute L1 vertebral body compression fracture CT abd w/o contrast- likely ileus- AXR- showed ileus R/O bowel obstruction Background chronically shrunken kidneys- abd/pelvic US-showing bladder and kidneys AXR ASSESSMENT/PLAN: Patient is a 67 year old female with significant past medical history of COPD on 3 L and steroids , MPD on aspirin, thrombocytosis, Hepatosplenomegaly, CKD, anxiety, cardiomegaly, h/o of floaters, h/o diverticulitis s/p partial colectomy presented with severe left sided lower back pain, found to have L1 lumbar compression fracture, had Atrial tachycardia, intractable vomiting with AMS and aspiration PNA, found to have ileus Ileus with partial SBO Repeat AXR- appears ileus improved Cont NPO, NO ice chips- per sx, now with flatus and hypoactive bowel sounds NGT reduced drainage, on intermittent drainage GI consult- apprec recs Sx consult- apprec recs Monitor Uncontrolled BP Lopressor from Q6H iv hydralazine 10mg Q6H Acute metabolic encephalopathy Likely due to sepsis with aspiration PNA Pt back to baseline Cont Unasyn Cont fluids- D5/1/2NS #Acute on chronic respiratory failure Improved, Pt on ventimask-50% likely secondary to aspiration PNA from vomiting and AMS Pt NPO, with AMS reversed Pt on 3L home oxygen with COPD #Aspiration PNA Continue Unasyn- Day 5 Aspiration precautions Oxygen as needed #Tachycardia-likely atrial tachycardia Now sinus tachy Appeared like SVT but did not break with adenosine or cardizem Pt maintained on lopressor due to failed cardizem Cardiol-Dr Thomas appreciate recs Cont cardiac rehabilitation program director # Anxiety Cont Iv ativan 0.5 Q6H # Lower back pain likely due to acute L1 vertebral body compression fracture Could be due to chronic steroid use Fentanyl patch As per Dr. Morales -TLSO brace for comfort Will need outpatient DEXA scan and workup for osteoporosis Lidocaine patch- for local action to minimize systemic side effects # Hyperkalemia normalized Pseudo hyperkalemia Plasma K lower Nephro on board Oncology on board # COPD: Not in exacerbation continue Oxygen supplementation Steroids dcd # CKD: Cr -improving Cr 1.3, - baseline of 1.5 FeUrea- prerenal picture Likely due to dehydration from vomiting Avoid nephrotoxic substances Cont Iv hydration Nephro on board # Myeloproliferative Disorder: Agrilyn on hold as pt is NPO Apprec recs-hemonc - per Dr Medrano #Chest pain Resolved in am Could be musculoskeletal related to retching R/O ACS Pt is currently tachycardic- could be due to anxiety or pain ativan 0.5mg Q6h prn # IBS Hold Linaclotide #hypernatremia Now on D5/1/2NS # Prophylaxis For DVT: On Heparin 5000 IU sq TID For GI: Not indicated # FEN IV D51/2NS @ 75mls/hr for Acute on chronic CKD, Monitor lytes NPO # Dispo: ICU, pending return of bowel function Visit type - Emergency Visit Emergency Visit: Yes ED Registration Date: 11/09/17 Care time: The patient presented to the Emergency Department on the above date and was hospitalized for further evaluation of their emergent condition. - New Patient This patient is new to me today: No - Critical Care Critical Care patient: Yes Total Critical Care Time (in minutes): 40 Critical Care Statement: The care of this patient involved high complexity decision making to prevent further life threatening deterioration of the patient 's condition and/or to evaluate & treat vital organ system(s) failure or risk of failure. - Discharge Referral Referred to [facility] Med P.C.: No
[2017-11-14 09:51] LABS: ANISOCYTOSIS 1+; MACROCYTOSIS 1+; OVALOCYTE 1+; PLATELET ESTIMATE INCREASED; TEAR DROP CELLS 1+
[2017-11-14] MEDS ORDERED: AMPICILLIN NA/SULBACTAM NA 1.5 GM in SODIUM CHLORIDE 100 ML IVPB SCH (10:00)
[2017-11-14] MEDS: TIOTROPIUM BROMIDE 18 MCG CAPSULES IH SCH (10:48)
[2017-11-14] MEDS: MUPIROCIN 2% TOPICAL OINTMENT FOR DECOLONIZATION NS SCH ×2 (10:48→21:54)
[2017-11-14] MEDS: LYTES/YERBA SANTA 240 ML BOTTLE MM SCH (10:55)
[2017-11-14] MEDS: ALBUTEROL SO4 0.083% IH SOL 2.5 MG/3 ML VIAL.NEB. NEB SCH ×3 (12:41→20:09)
--- NOTE | 2017-11-14 13:56 | PN ---
Physical Exam: SUBJECTIVE: Patient seen and examined at bed side in ICU NGT drainage 300 CC since AM , denies any chest pain abdominal pain or sob. continue conservative management pt is improving passing gases , active BS , asking for food. had elevated BP started on Hydralyzin PRN OBJECTIVE: Vital Signs Period Temp Pulse Resp BP Sys/Palacios Pulse Ox Last 24 Hr 98.2 F-98.8 F 69-90 18-23 83-196/65-90 50-96 GENERAL: AAOx3 in NAD HEAD: NC/AT EYES: PERRL, EOMI, sclera anicteric, conjunctiva clear. ENT: Ears normal, nares patent, oropharynx clear without exudates, dry mucous membranes. NECK: Trachea midline, supple. LUNGS: decrease breath sound at right base , no wheezes, no crackles, no accessory muscle use. HEART: Regular rate and rhythm, S1, S2 without murmur, rub or gallop. ABDOMEN: Soft, tender to deep palpation , distended, active bowel sounds, no guarding, no rebound,para umbilical hernia 5x5 cm EXTREMITIES: 2+ pulses, warm, well-perfused, no edema. NEUROLOGICAL: Cranial nerves II through XII grossly intact. Normal speech, gait not observed. Laboratory Results - last 24 hr 11/13/17 11/14/17 11/14/17 05:30 05:30 05:30 WBC 25.3 H RBC 5.09 Hgb 13.2 Hct 44.6 MCV 87.6 MCH 25.9 MCHC 29.6 L RDW 18.7 H Plt Count 529 H MPV 9.3 D Absolute Neuts (auto) 23.6 Neutrophils % 93.1 H Neutrophils % (Manual) No Result Required. 89.9 H Band Neutrophils % 0.0 Lymphocytes % 2.8 L Lymphocytes % (Manual) 5.1 L D Monocytes % 2.4 L Monocytes % (Manual) 2 L Eosinophils % 1.2 Eosinophils % (Manual) 3.0 D Basophils % 0.5 Basophils % (Manual) 0.0 Myelocytes % (Man) 0 Promyelocytes % (Man) 0 Blast Cells % (Manual) 0 Nucleated RBC % 0 Metamyelocytes 0 Hypochromia 2+ Platelet Estimate Increased Polychromasia 1+ Poikilocytosis 2+ Anisocytosis 1+ Microcytosis 1+ Macrocytosis 1+ Tear Drop Cells 1+ Ovalocytes 1+ Stomatocytes 1+ Sodium 144 Potassium 4.3 Chloride 98 Carbon Dioxide 41 H Anion Gap 5 L BUN 46 H Creatinine 1.3 H Creat Clearance w eGFR 40.86 Random Glucose 95 Calcium 8.4 L Phosphorus 2.9 Magnesium 2.2 Total Bilirubin 0.6 D AST 14 L ALT 15 Alkaline Phosphatase 79 Total Protein 5.2 L Albumin 2.6 L Active Medications Generic Name Dose Route Start Last Admin Trade Name Freq PRN Reason Stop Dose Admin Acetaminophen 1,000 mg 11/13/17 16:05 11/13/17 22:13 Ofirmev Injection - IVPB 1,000 mg Q6H PRN Administration PAIN LEVEL 4 - 6 Albuterol Sulfate 1 amp 11/11/17 07:07 Ventolin 0.083% Nebulizer Soln - NEB Q4H PRN SHORT OF BREATH/WHEEZING Albuterol Sulfate 1 amp 11/14/17 12:00 11/14/17 12:41 Ventolin 0.083% Nebulizer Soln - NEB 1 amp RQID RANDI Administration Chlorhexidine Gluconate 1 applic 11/11/17 07:07 11/13/17 21:29 Hibiclens For Decolonization - TP 1 applic HS RANDI Administration Heparin Sodium (Porcine) 5,000 unit 11/11/17 14:00 11/14/17 05:41 Heparin - SQ 5,000 unit TID RANDI Administration Hydralazine HCl 10 mg 11/14/17 06:39 Apresoline Injection - IVPUSH Q6H PRN HYPERTENSION IV Flush 8 ml 11/13/17 11:23 Picc Line Flush IVPUSH PRN PRN Protocol Dextrose/Sodium Chloride 1,000 mls @ 83 mls/hr 11/13/17 20:00 11/13/17 20:00 D5-1/2ns - IV 83 mls/hr ASDIR RANDI Administration Ampicillin Sodium/Sulbactam 100 mls @ 200 mls/hr 11/14/17 15:00 Sodium 1.5 gm/ Sodium Chloride IVPB Q6H-IV RANDI Lorazepam 0.5 mg 11/12/17 02:22 11/14/17 09:42 Ativan Injection - IVPUSH 0.5 mg Q6H PRN Administration ANXIETY Metoprolol Tartrate 5 mg 11/13/17 15:00 11/14/17 08:36 Lopressor Injection - IVPUSH 5 mg Q6H-IV RANDI Administration Mupirocin 1 applic 11/11/17 08:00 11/14/17 10:48 Bactroban Ointment (For Decolonization) - NS 11/16/17 07:59 1 applic BID RANDI Administration Prochlorperazine Edisylate 2.5 mg 11/11/17 07:07 11/11/17 14:09 Compazine Injection - IVPB 2.5 mg Q3H PRN Administration NAUSEA AND/OR VOMITING Saliva Substitute 1 applic 11/10/17 16:15 11/14/17 10:55 Mouthkote Solution - MM 1 applic DAILY RANDI Administration Tiotropium [place] 1 puff 11/11/17 10:00 11/14/17 10:48 Spiriva - IH 1 puff DAILY RANDI Administration CBC, BMP 11/14/17 05:30 11/14/17 05:30 ASSESSMENT/PLAN: 67 yo Fpresented with back pain and found later to have SBO and was admitted to ICU for further evaluation # GI - Small bowel obstruction partial high grade * had 2 previous abd surgery and use of narcotics could participate to the SBO * abdomen distneded, soft , pass flatus but no BM yet . * CT abdomen reviewed * NPO * IV fluids * cont abx Unacyn * NGT drain 300cc since AM * monitor lytes * pain medicine Tyelnol , avoids narcotics * continue conservative management for now till NGT drainage decrease will consider barium study , poor surgical candidate * surgery consulted * GI consulted dr benton agree with the plan and avoid reglan # Pulm - Acute on chronic respiratory distress due to PNA -COPD * CXR with worsening B/L changes pulm and pleural * repeat CXr in AM * cont ABX unasyn * insentive spirometry * aspiration precautions * bronchodilators #Nephro -RICHARD on CKD * Improving * Cont. D5W/1/2 NS # New onset hypernatremia , resolved * on D5w * repeat BMP #Neuro - Anxiety * Ativan 0.5 Q 6hr - L1 fracture * AOx3 * Lidoderm patch, TLSO * DEXA as outpatient * poor surgical candidate # Cardiovascular -HTN uncontrolled * On lopressor q6h * hydralasin 10 IV PRN in AM if needed # Heme -Myeloproliferative disorder * WBC and plt at baseline #FEN * F: D5w/1/2 NS @ 75 CC * E: monitor * N: NPO # DVT ppx * Heparin sq TID #Dispo * Cont. to monitor in ICU * Full code * discuss with dr Christopher GARCIA who agreed with the plan and ICU team . Total critical time 45 min Visit type - Emergency Visit Emergency Visit: Yes ED Registration Date: 11/09/17 Care time: The patient presented to the Emergency Department on the above date and was hospitalized for further evaluation of their emergent condition. - New Patient This patient is new to me today: No - Critical Care Critical Care patient: Yes Total Critical Care Time (in minutes): 45 Critical Care Statement: The care of this patient involved high complexity decision making to prevent further life threatening deterioration of the patient 's condition and/or to evaluate & treat vital organ system(s) failure or risk of failure.
--- NOTE | 2017-11-14 14:35 | PN ---
Teaching Attending Note Name of Resident: Maynor Weiner ATTENDING PHYSICIAN STATEMENT I saw and evaluated the patient. I reviewed the resident's note and discussed the case with the resident. I agree with the resident's findings and plan as documented. SUBJECTIVE: Patient seen and examined in the ICU. NGT output decreasing. Patient reports passing flatus and abdomen appears less distended. Breathing feels better overall. from NGT. Denies shortness of breath or chest pain. No fevers or chills. CXR: RLL effusion/atelectasis OBJECTIVE: Intake & Output 11/11/17 11/12/17 11/13/17 11/14/17 23:59 23:59 23:59 23:59 Intake Total 2750 2325 1775 1146 Output Total 3950 2850 2500 700 Balance -1200 -525 -725 446 Weight 118 lb 14.4 oz 112 lb 12.8 oz 119 lb 118 lb 14.4 oz Last Vital Signs Temp Pulse Resp BP Pulse Ox 98.2 F 86 20 83/69 95 11/14/17 06:00 11/14/17 12:00 11/14/17 12:00 11/14/17 12:00 11/14/17 10:00 Active Medications Acetaminophen (Ofirmev Injection -) 1,000 mg IVPB Q6H PRN PRN Reason: PAIN LEVEL 4 - 6 Last Admin: 11/13/17 22:13 Dose: 1,000 mg Albuterol Sulfate (Ventolin 0.083% Nebulizer Soln -) 1 amp NEB Q4H PRN PRN Reason: SHORT OF BREATH/WHEEZING Albuterol Sulfate (Ventolin 0.083% Nebulizer Soln -) 1 amp NEB RQID [facility] Last Admin: 11/14/17 12:41 Dose: 1 amp Chlorhexidine Gluconate (Hibiclens For Decolonization -) 1 applic TP HS RANDI Last Admin: 11/13/17 21:29 Dose: 1 applic Heparin Sodium (Porcine) (Heparin -) 5,000 unit SQ TID RANDI Last Admin: 11/14/17 05:41 Dose: 5,000 unit Hydralazine HCl (Apresoline Injection -) 10 mg IVPUSH Q6H PRN PRN Reason: HYPERTENSION IV Flush (Picc Line Flush) 8 ml IVPUSH PRN PRN PRN Reason: Protocol Dextrose/Sodium Chloride (D5-1/2ns -) 1,000 mls @ 83 mls/hr IV ASDIR RANDI Last Admin: 11/13/17 20:00 Dose: 83 mls/hr Ampicillin Sodium/Sulbactam (Sodium 1.5 gm/ Sodium Chloride) 100 mls @ 200 mls/ hr IVPB Q6H-IV RANDI Lorazepam (Ativan Injection -) 0.5 mg IVPUSH Q6H PRN PRN Reason: ANXIETY Last Admin: 11/14/17 09:42 Dose: 0.5 mg Metoprolol Tartrate (Lopressor Injection -) 5 mg IVPUSH Q6H-IV RANDI Last Admin: 11/14/17 08:36 Dose: 5 mg Mupirocin (Bactroban Ointment (For Decolonization) -) 1 applic NS BID [facility] Stop: 11/16/17 07:59 Last Admin: 11/14/17 10:48 Dose: 1 applic Prochlorperazine Edisylate (Compazine Injection -) 2.5 mg IVPB Q3H PRN PRN Reason: NAUSEA AND/OR VOMITING Last Admin: 11/11/17 14:09 Dose: 2.5 mg Saliva Substitute ([place] Solution -) 1 applic MM DAILY RANDI Last Admin: 11/14/17 10:55 Dose: 1 applic Tiotropium [place] (Spiriva -) 1 puff IH DAILY [facility] Last Admin: 11/14/17 10:48 Dose: 1 puff Gen: Mildly tachypneic at rest, NAD Heart: RRR Lung: Right basilar rhonchi, no wheeze Abd: softly distended, less tenderness, (+) BS Ext: no edema Laboratory Results - last 24 hr 11/13/17 11/14/17 11/14/17 05:30 05:30 05:30 WBC 25.3 H RBC 5.09 Hgb 13.2 Hct 44.6 MCV 87.6 MCH 25.9 MCHC 29.6 L RDW 18.7 H Plt Count 529 H MPV 9.3 D Absolute Neuts (auto) 23.6 Neutrophils % 93.1 H Neutrophils % (Manual) No Result Required. 89.9 H Band Neutrophils % 0.0 Lymphocytes % 2.8 L Lymphocytes % (Manual) 5.1 L D Monocytes % 2.4 L Monocytes % (Manual) 2 L Eosinophils % 1.2 Eosinophils % (Manual) 3.0 D Basophils % 0.5 Basophils % (Manual) 0.0 Myelocytes % (Man) 0 Promyelocytes % (Man) 0 Blast Cells % (Manual) 0 Nucleated RBC % 0 Metamyelocytes 0 Hypochromia 2+ Platelet Estimate Increased Polychromasia 1+ Poikilocytosis 2+ Anisocytosis 1+ Microcytosis 1+ Macrocytosis 1+ Tear Drop Cells 1+ Ovalocytes 1+ Stomatocytes 1+ Sodium 144 Potassium 4.3 Chloride 98 Carbon Dioxide 41 H Anion Gap 5 L BUN 46 H Creatinine 1.3 H Creat Clearance w eGFR 40.86 Random Glucose 95 Calcium 8.4 L Phosphorus 2.9 Magnesium 2.2 Total Bilirubin 0.6 D AST 14 L ALT 15 Alkaline Phosphatase 79 Total Protein 5.2 L Albumin 2.6 L ASSESSMENT AND PLAN: Small Bowel Obstruction Pneumonia Acute on Chronic Hypoxic and Hypercapneic Respiratory Failure Acute on Chronic Renal Failure COPD Myeloproliferative Disorder Lumbar Compression Fracture HTN - ABX per ID - NGT to intermittent low wall suction: outputs significantly decreasing - IVF - If unable to take PO in the next 1 to 2 days (today is 5 days NPO)-> Access and TPN - Monitor urine output, creatinine - Inhaled bronchodilators - O2 to keep SpO2 >90% - Await return of bowel function - VTE prophylaxis - Noted Unasyn started - Continue ICU monitoring Dr Briggs Critical care time spent in reviewing chart, evaluating patient and formulating plan 35 min
--- NOTE | 2017-11-14 15:03 | PN ---
Progress Note, Physician History of Present Illness: Pt seen and examined at bedside. She is awake and alert. She denies abdominal pain. - Current Medication List Current Medications: Active Medications Acetaminophen (Ofirmev Injection -) 1,000 mg IVPB Q6H PRN PRN Reason: PAIN LEVEL 4 - 6 Last Admin: 11/13/17 22:13 Dose: 1,000 mg Albuterol Sulfate (Ventolin 0.083% Nebulizer Soln -) 1 amp NEB Q4H PRN PRN Reason: SHORT OF BREATH/WHEEZING Albuterol Sulfate (Ventolin 0.083% Nebulizer Soln -) 1 amp NEB RQID [facility] Last Admin: 11/14/17 12:41 Dose: 1 amp Chlorhexidine Gluconate (Hibiclens For Decolonization -) 1 applic TP HS [facility] Last Admin: 11/13/17 21:29 Dose: 1 applic Heparin Sodium (Porcine) (Heparin -) 5,000 unit SQ TID [facility] Last Admin: 11/14/17 05:41 Dose: 5,000 unit Hydralazine HCl (Apresoline Injection -) 10 mg IVPUSH Q6H PRN PRN Reason: HYPERTENSION IV Flush (Picc Line Flush) 8 ml IVPUSH PRN PRN PRN Reason: Protocol Dextrose/Sodium Chloride (D5-1/2ns -) 1,000 mls @ 83 mls/hr IV ASDIR [facility] Last Admin: 11/13/17 20:00 Dose: 83 mls/hr Ampicillin Sodium/Sulbactam (Sodium 1.5 gm/ Sodium Chloride) 100 mls @ 200 mls/ hr IVPB Q6H-IV RANDI Lorazepam (Ativan Injection -) 0.5 mg IVPUSH Q6H PRN PRN Reason: ANXIETY Last Admin: 11/14/17 09:42 Dose: 0.5 mg Methylprednisolone Sodium Succinate (Solu-Medrol -) 16 mg IVPUSH DAILY [facility] Metoprolol Tartrate (Lopressor Injection -) 5 mg IVPUSH Q6H-IV [facility] Last Admin: 11/14/17 08:36 Dose: 5 mg Mupirocin (Bactroban Ointment (For Decolonization) -) 1 applic NS BID [facility] Stop: 11/16/17 07:59 Last Admin: 11/14/17 10:48 Dose: 1 applic Prochlorperazine Edisylate (Compazine Injection -) 2.5 mg IVPB Q3H PRN PRN Reason: NAUSEA AND/OR VOMITING Last Admin: 11/11/17 14:09 Dose: 2.5 mg Saliva Substitute (Mouthkote Solution -) 1 applic MM DAILY [facility] Last Admin: 11/14/17 10:55 Dose: 1 applic Tiotropium [employer] (Spiriva -) 1 puff IH DAILY [facility] Last Admin: 11/14/17 10:48 Dose: 1 puff - Objective Vital Signs: Vital Signs Temperature 98.7 F 11/14/17 14:00 Pulse Rate 88 11/14/17 14:00 Respiratory Rate 22 11/14/17 14:00 Blood Pressure 156/83 11/14/17 14:00 O2 Sat by Pulse Oximetry (%) 95 11/14/17 10:00 Constitutional: Yes: Calm Eyes: Yes: Conjunctiva Clear HENT: Yes: Atraumatic Cardiovascular: Yes: S1, S2 Respiratory: Yes: On Venti-Mask Gastrointestinal: Yes: Soft, Other (ng tube) Genitourinary: Yes: Tillman Present Musculoskeletal: Yes: Muscle Weakness Edema: No Neurological: Yes: Oriented Psychiatric: Yes: Oriented Labs: CBC, BMP 11/14/17 05:30 11/14/17 05:30 - ....Imaging Chest X-ray: Report Reviewed Problem List - Problems (1) Ileus Code(s): K56.7 - ILEUS, UNSPECIFIED (2) Small bowel obstruction due to adhesions Code(s): K56.50 - INTESTNL ADHESIONS, UNSP TO PARTIAL VERSUS COMPLETE OBST (3) CKD (chronic kidney disease) Code(s): N18.9 - CHRONIC KIDNEY DISEASE, UNSPECIFIED Assessment/Plan Current Medications Generic Name Dose Route Start Last Admin Trade Name Freq PRN Reason Stop Dose Admin Acetaminophen 1,000 mg 11/13/17 16:05 11/13/17 22:13 Ofirmev Injection - IVPB 1,000 mg Q6H PRN Administration PAIN LEVEL 4 - 6 Albuterol Sulfate 1 amp 11/11/17 07:07 Ventolin 0.083% Nebulizer Soln - NEB Q4H PRN SHORT OF BREATH/WHEEZING Albuterol Sulfate 1 amp 11/14/17 12:00 11/14/17 12:41 Ventolin 0.083% Nebulizer Soln - NEB 1 amp RQID RANDI Administration Chlorhexidine Gluconate 1 applic 11/11/17 07:07 11/13/17 21:29 Hibiclens For Decolonization - TP 1 applic HS RANDI Administration Heparin Sodium (Porcine) 5,000 unit 11/11/17 14:00 11/14/17 05:41 Heparin - SQ 5,000 unit TID RANDI Administration Hydralazine HCl 10 mg 11/14/17 06:39 Apresoline Injection - IVPUSH Q6H PRN HYPERTENSION IV Flush 8 ml 11/13/17 11:23 Picc Line Flush IVPUSH PRN PRN Protocol Dextrose/Sodium Chloride 1,000 mls @ 83 mls/hr 11/13/17 20:00 11/13/17 20:00 D5-1/2ns - IV 83 mls/hr ASDIR RANDI Administration Ampicillin Sodium/Sulbactam 100 mls @ 200 mls/hr 11/14/17 15:00 Sodium 1.5 gm/ Sodium Chloride IVPB Q6H-IV RANDI Lorazepam 0.5 mg 11/12/17 02:22 11/14/17 09:42 Ativan Injection - IVPUSH 0.5 mg Q6H PRN Administration ANXIETY Methylprednisolone Sodium Succinate 16 mg 11/14/17 15:00 Solu-Medrol - IVPUSH DAILY RANDI Metoprolol Tartrate 5 mg 11/13/17 15:00 11/14/17 08:36 Lopressor Injection - IVPUSH 5 mg Q6H-IV RANDI Administration Mupirocin 1 applic 11/11/17 08:00 11/14/17 10:48 Bactroban Ointment (For Decolonization) - NS 11/16/17 07:59 1 applic BID RANDI Administration Prochlorperazine Edisylate 2.5 mg 11/11/17 07:07 11/11/17 14:09 Compazine Injection - IVPB 2.5 mg Q3H PRN Administration NAUSEA AND/OR VOMITING Saliva Substitute 1 applic 11/10/17 16:15 11/14/17 10:55 Mouthkote Solution - MM 1 applic DAILY RANDI Administration Tiotropium [employer] 1 puff 11/11/17 10:00 11/14/17 10:48 Spiriva - IH 1 puff DAILY RANDI Administration Impression 1. CKD with acute component 2. hyperkalemia - likely in part pseudohyperkalemia 3. copd exacerbation 4. essential thrombocytosis 5. htn 6. anxiety 7. diverticulosis 8. hemorrhoids 9. leukocytosis Plan - renal function continues to improve - potassium stable - repeat labs in am - GI follow up - will add clinimix and decrease rate of fluids - will follow Dr Argueta
[2017-11-14] MEDS ORDERED: SODIUM CHLORIDE 100 ML IVPB ONE ×2 (15:08→21:51)
[2017-11-14] MEDS ORDERED: AMPICILLIN NA/SULBACTAM NA 1.5 GM VIAL ONE ×2 (15:08→21:51)
[2017-11-14] MEDS ORDERED: AMINO ACIDS 4.25%/D5W 1,000 ML IV SCH (15:30)
[2017-11-14] MEDS: DEXTROSE 5%-0.45% SALINE 1,000 ML IV SCH (15:38)
--- NOTE | 2017-11-14 15:41 | PN ---
Teaching Attending Note Name of Resident: Margo Lewis ATTENDING PHYSICIAN STATEMENT I saw and evaluated the patient. I reviewed the resident's note and discussed the case with the resident. I agree with the resident's findings and plan as documented with exceptions below. SUBJECTIVE: patient seen and examined. More dyspneic today, denies nausea, vomiting or abdominal pain. wants ice chips. Passing gas but no BM yet. OBJECTIVE: Vital Signs Period Temp Pulse Resp BP Sys/Palacios Pulse Ox Last 24 Hr 98.2 F-98.8 F 69-90 18-23 83-196/65-90 50-96 Intake & Output 11/11/17 11/12/17 11/13/17 11/14/17 23:59 23:59 23:59 23:59 Intake Total 2750 2325 1775 1146 Output Total 3950 2850 2500 700 Balance -1200 -525 -725 446 Weight 118 lb 14.4 oz 112 lb 12.8 oz 119 lb 118 lb 14.4 oz General: mild tachypneic in bed, NG tube in place Chest: limited exam, decreased breath sounds at bases Abdomen:soft, positive bowel sounds, NT throughout, distended Extremities: no edema Home Medication List Medication Instructions Recorded Confirmed Type Albuterol Sulfate [Proair Hfa -] 1 - 2 inh PO PRN PRN 01/28/14 11/06/17 History Alprazolam [Xanax] 0.25 mg PO PRN PRN 07/21/16 11/08/17 History Anagrelide HCl [Agrylin -] 0.5 mg PO TID 11/14/16 11/06/17 History Linaclotide [Linzess] 72 mcg PO Q2D 02/06/17 11/06/17 History Allopurinol [Zyloprim -] 200 mg PO DAILY 10/25/17 11/06/17 History Roflumilast [Daliresp -] 500 mcg PO Q2D 10/25/17 11/06/17 History Tiotropium [place] [Spiriva] 1 inh IH DAILY 10/25/17 11/06/17 History traZODone HCL [Desyrel -] 100 mg PO HS 10/25/17 11/06/17 History Prednisone [Deltasone] 20 mg PO DAILY 11/08/17 11/08/17 History Active Medications Generic Name Dose Route Start Last Admin Trade Name Freq PRN Reason Stop Dose Admin Acetaminophen 1,000 mg 11/13/17 16:05 11/13/17 22:13 Ofirmev Injection - IVPB 1,000 mg Q6H PRN Administration PAIN LEVEL 4 - 6 Albuterol Sulfate 1 amp 11/11/17 07:07 Ventolin 0.083% Nebulizer Soln - NEB Q4H PRN SHORT OF BREATH/WHEEZING Albuterol Sulfate 1 amp 11/14/17 12:00 11/14/17 12:41 Ventolin 0.083% Nebulizer Soln - NEB 1 amp RQID RANDI Administration Chlorhexidine Gluconate 1 applic 11/11/17 07:07 11/13/17 21:29 Hibiclens For Decolonization - TP 1 applic HS RANDI Administration Heparin Sodium (Porcine) 5,000 unit 11/11/17 14:00 11/14/17 05:41 Heparin - SQ 5,000 unit TID RANDI Administration Hydralazine HCl 10 mg 11/14/17 06:39 Apresoline Injection - IVPUSH Q6H PRN HYPERTENSION IV Flush 8 ml 11/13/17 11:23 Picc Line Flush IVPUSH PRN PRN Protocol Ampicillin Sodium/Sulbactam 100 mls @ 200 mls/hr 11/14/17 15:00 Sodium 1.5 gm/ Sodium Chloride IVPB Q6H-IV RANDI Dextrose/Sodium Chloride 1,000 mls @ 35 mls/hr 11/14/17 15:03 D5-1/2ns - IV ASDIR RANDI Amino Acids 1,000 mls @ 42 mls/hr 11/14/17 15:30 Clinimix - IV Q24H RANDI Lorazepam 0.5 mg 11/12/17 02:22 11/14/17 09:42 Ativan Injection - IVPUSH 0.5 mg Q6H PRN Administration ANXIETY Methylprednisolone Sodium Succinate 16 mg 11/14/17 15:15 Solu-Medrol - IVPUSH DAILY RANDI Metoprolol Tartrate 5 mg 11/13/17 15:00 11/14/17 08:36 Lopressor Injection - IVPUSH 5 mg Q6H-IV RANDI Administration Mupirocin 1 applic 11/11/17 08:00 11/14/17 10:48 Bactroban Ointment (For Decolonization) - NS 11/16/17 07:59 1 applic BID RANDI Administration Prochlorperazine Edisylate 2.5 mg 11/11/17 07:07 11/11/17 14:09 Compazine Injection - IVPB 2.5 mg Q3H PRN Administration NAUSEA AND/OR VOMITING Saliva Substitute 1 applic 11/10/17 16:15 11/14/17 10:55 Mouthkote Solution - MM 1 applic DAILY RANDI Administration Tiotropium [place] 1 puff 11/11/17 10:00 11/14/17 10:48 Spiriva - IH 1 puff DAILY RANDI Administration Laboratory Results - last 24 hr 11/13/17 11/14/17 11/14/17 05:30 05:30 05:30 WBC 25.3 H RBC 5.09 Hgb 13.2 Hct 44.6 MCV 87.6 MCH 25.9 MCHC 29.6 L RDW 18.7 H Plt Count 529 H MPV 9.3 D Absolute Neuts (auto) 23.6 Neutrophils % 93.1 H Neutrophils % (Manual) No Result Required. 89.9 H Band Neutrophils % 0.0 Lymphocytes % 2.8 L Lymphocytes % (Manual) 5.1 L D Monocytes % 2.4 L Monocytes % (Manual) 2 L Eosinophils % 1.2 Eosinophils % (Manual) 3.0 D Basophils % 0.5 Basophils % (Manual) 0.0 Myelocytes % (Man) 0 Promyelocytes % (Man) 0 Blast Cells % (Manual) 0 Nucleated RBC % 0 Metamyelocytes 0 Hypochromia 2+ Platelet Estimate Increased Polychromasia 1+ Poikilocytosis 2+ Anisocytosis 1+ Microcytosis 1+ Macrocytosis 1+ Tear Drop Cells 1+ Ovalocytes 1+ Stomatocytes 1+ Sodium 144 Potassium 4.3 Chloride 98 Carbon Dioxide 41 H Anion Gap 5 L BUN 46 H Creatinine 1.3 H Creat Clearance w eGFR 40.86 Random Glucose 95 Calcium 8.4 L Phosphorus 2.9 Magnesium 2.2 Total Bilirubin 0.6 D AST 14 L ALT 15 Alkaline Phosphatase 79 Total Protein 5.2 L Albumin 2.6 L Microbiology 11/09/17 21:00 Urine - Urine - Catheterized Urine Culture - Final NO GROWTH OBTAINED 11/07/17 17:50 Urine - Urine Clean Catch Urine Culture - Final NO GROWTH OBTAINED Abdominal xray reviewed, report noted ASSESSMENT AND PLAN: 67yo F with PMH COPD on home O2 3L NC, anxiety, myeloproliferative disorder, thrombophilia, diverticulosis s/p partial colectomy presented to the ER with low back pain, L1 fracture, course complicated by partial SBO vs ileus and RLL PNA likely aspiration. -Partial SBO vs ileus -RLL PNA, likely aspiration from vomiting. -Acute hypoxic/hypercapneic respiratory failure, off Bipap -Atrial tachycardia, improved -RICHARD on CKD, likely dehydration -Chronic steroid/oxygen dependent COPD -Hyperkalemia, resolved -HTN -Myeloproliferative disorder with leucocytosis/thrombophilia -Anxiety Plan: NG output decreased, abdominal xray improved. COntinue NPO, NG tube, conservative management, follow up with surgery. Avoid opiods. Back pain controlled, off lidocaine patch/opioids, monitor. Patient declines TLSO brace. Outpatient DEXA scan. \ Continue unasyn for now with aspiration precautions. Taper off oxygen as tolerated. Resume home steroids as patient more tachypneic today pending surgery input. Cardiology input noted. Continue lopressor q6h. Hydralazine prn. Trend CBC. DVTPPX heparin Dispo pending clinical improvement. Plan discussed with patient in detail, all questions answered. Total critical care time spent in ICU 40 min.
[2017-11-14] MEDS: methylPREDNISolone NA SUCC 40 MG/1 ML VIAL IVPUSH SCH (15:59)
[2017-11-14] MEDS: AMPICILLIN NA/SULBACTAM NA 1.5 GM in SODIUM CHLORIDE 100 ML IVPB SCH ×2 (16:00→21:53)
--- NOTE | 2017-11-14 18:20 | PN ---
Progress Note (short form) - Note Progress Note: Patient seen and examined Last Vital Signs Temp Pulse Resp BP Pulse Ox 98 F 86 20 196/90 96 11/13/17 08:00 11/13/17 16:13 11/13/17 16:00 11/13/17 16:13 11/13/17 10:00 Cor: RSR, No murmurs, No gallops Lungs: Clear to P&A Abd: Soft, Normal bowel sounds, No organomegaly, distended, ngt present Ext:No significant edema Abnormal Lab Results 11/13/17 11/13/17 05:30 05:30 WBC 23.5 H MCHC 30.3 L RDW 18.7 H Plt Count 564 H Neutrophils % 91.6 H Lymphocytes % 3.5 L D Monocytes % 2.7 L Carbon Dioxide 44 H Anion Gap 3 L BUN 58 H D Creatinine 1.5 H Calcium 8.3 L Active Medications Generic Name Dose Route Start Last Admin Trade Name Freq PRN Reason Stop Dose Admin Acetaminophen 1,000 mg 11/13/17 16:05 11/13/17 16:19 Ofirmev Injection - IVPB 1,000 mg Q6H PRN Administration PAIN LEVEL 4 - 6 Albuterol Sulfate 1 amp 11/11/17 07:07 Ventolin 0.083% Nebulizer Soln - NEB Q4H PRN SHORT OF BREATH/WHEEZING Chlorhexidine Gluconate 1 applic 11/11/17 07:07 11/12/17 21:21 Hibiclens For Decolonization - TP 1 applic HS RANDI Administration Heparin Sodium (Porcine) 5,000 unit 11/11/17 14:00 11/13/17 15:11 Heparin - SQ 5,000 unit TID RANDI Administration IV Flush 8 ml 11/13/17 11:23 Picc Line Flush IVPUSH PRN PRN Protocol Ampicillin Sodium/Sulbactam 100 mls @ 200 mls/hr 11/11/17 10:00 11/13/17 10: 27 Sodium 1.5 gm/ Sodium Chloride IVPB 200 mls/hr BID RANDI Administration Dextrose 1,000 mls @ 100 mls/hr 11/12/17 08:30 11/13/17 10:27 D5w - IV 100 mls/hr ASDIR RANDI Administration Lorazepam 0.5 mg 11/12/17 02:22 11/13/17 16:23 Ativan Injection - IVPUSH 0.5 mg Q6H PRN Administration ANXIETY Metoprolol Tartrate 5 mg 11/13/17 15:00 11/13/17 16:13 Lopressor Injection - IVPUSH 5 mg Q6H-IV RANDI Administration Mupirocin 1 applic 11/11/17 08:00 11/13/17 10:00 Bactroban Ointment (For Decolonization) - NS 11/16/17 07:59 1 applic BID RANDI Administration Prochlorperazine Edisylate 2.5 mg 11/11/17 07:07 11/11/17 14:09 Compazine Injection - IVPB 2.5 mg Q3H PRN Administration NAUSEA AND/OR VOMITING Saliva Substitute 1 applic 11/10/17 16:15 11/13/17 10:27 Mouthkote Solution - MM 1 applic DAILY RANDI Administration Tiotropium [place] 1 puff 11/11/17 10:00 11/13/17 10:27 Spiriva - IH 1 puff DAILY RANDI Administration A/P 67yo F with PMH COPD on home O2 3L NC, anxiety, myeloproliferative disorder, thrombophilia, diverticulosis s/p partial colectomy presented to the ER with low back pain . MPD--off ASA/hydrea due to ileus--will await to resume once she can be taken off of strict npo On heparin SC close monitoring of cbc--pt with h/o mpd and at risk for thromboses
--- NOTE | 2017-11-14 21:50 | PN ---
Progress Note, Physician History of Present Illness: Pt seen and examined in bed in ICU. She is resting comfortably, no complaints of pain now. No nausea. Has been taking ice chips. She is passing gas and had a small pellet of stool earlier. NGT put out 1050ml yesterday, 850 in last 24 hrs. Pt on O2 by mask. Complains of not being able to sleep. - Current Medication List Current Medications: Active Medications Acetaminophen (Ofirmev Injection -) 1,000 mg IVPB Q6H PRN PRN Reason: PAIN LEVEL 4 - 6 Last Admin: 11/13/17 22:13 Dose: 1,000 mg Albuterol Sulfate (Ventolin 0.083% Nebulizer Soln -) 1 amp NEB Q4H PRN PRN Reason: SHORT OF BREATH/WHEEZING Albuterol Sulfate (Ventolin 0.083% Nebulizer Soln -) 1 amp NEB RQID RANDI Last Admin: 11/14/17 20:09 Dose: 1 amp Chlorhexidine Gluconate (Hibiclens For Decolonization -) 1 applic TP HS RANDI Last Admin: 11/13/17 21:29 Dose: 1 applic Heparin Sodium (Porcine) (Heparin -) 5,000 unit SQ TID RANDI Last Admin: 11/14/17 15:37 Dose: 5,000 unit Hydralazine HCl (Apresoline Injection -) 10 mg IVPUSH Q6H PRN PRN Reason: HYPERTENSION IV Flush (Picc Line Flush) 8 ml IVPUSH PRN PRN PRN Reason: Protocol Ampicillin Sodium/Sulbactam (Sodium 1.5 gm/ Sodium Chloride) 100 mls @ 200 mls/ hr IVPB Q6H-IV RANDI Last Admin: 11/14/17 16:00 Dose: 200 mls/hr Dextrose/Sodium Chloride (D5-1/2ns -) 1,000 mls @ 35 mls/hr IV ASDIR RANDI Last Admin: 11/14/17 15:38 Dose: 35 mls/hr Amino Acids (Clinimix -) 1,000 mls @ 42 mls/hr IV Q24H RADNI Last Admin: 11/14/17 17:44 Dose: 42 mls/hr Lorazepam (Ativan Injection -) 0.5 mg IVPUSH Q6H PRN PRN Reason: ANXIETY Last Admin: 11/14/17 09:42 Dose: 0.5 mg Methylprednisolone Sodium Succinate (Solu-Medrol -) 16 mg IVPUSH DAILY [facility] Last Admin: 11/14/17 15:59 Dose: 16 mg Metoprolol Tartrate (Lopressor Injection -) 5 mg IVPUSH Q6H-IV [facility] Last Admin: 11/14/17 15:38 Dose: 5 mg Mupirocin (Bactroban Ointment (For Decolonization) -) 1 applic NS BID [facility] Stop: 11/16/17 07:59 Last Admin: 11/14/17 10:48 Dose: 1 applic Prochlorperazine Edisylate (Compazine Injection -) 2.5 mg IVPB Q3H PRN PRN Reason: NAUSEA AND/OR VOMITING Last Admin: 11/11/17 14:09 Dose: 2.5 mg Saliva Substitute (Mouthkote Solution -) 1 applic MM DAILY [facility] Last Admin: 11/14/17 10:55 Dose: 1 applic Tiotropium [place] (Spiriva -) 1 puff IH DAILY [facility] Last Admin: 11/14/17 10:48 Dose: 1 puff - Objective Vital Signs: Vital Signs Temperature 98.0 F 11/14/17 16:00 Pulse Rate 87 11/14/17 18:00 Respiratory Rate 23 11/14/17 18:00 Blood Pressure 159/77 11/14/17 18:00 O2 Sat by Pulse Oximetry (%) 95 11/14/17 10:00 Constitutional: Yes: Well Nourished, No Distress, Calm Eyes: Yes: Conjunctiva Clear, EOM Intact HENT: Yes: Atraumatic, Normocephalic, Other (NGT in place) Gastrointestinal: Yes: Soft, Distention (with tympany). No: Tenderness ...Rectal Exam: Yes: Deferred Genitourinary: Yes: Tillman Present. No: Hematuria Musculoskeletal: No: Joint Stiffness, Joint Swelling Extremities: No: Cool, Cyanosis Integumentary: No: Jaundice, Rash Neurological: Yes: Alert, Oriented Labs: CBC, BMP 11/14/17 05:30 11/14/17 05:30 - ....Imaging X-ray: Report Reviewed, Image Reviewed (images personally reviewed, slightly less distention of mid abdominal loops, but not much other change, paucity of gas peripherally) Problem List - Problems (1) Small bowel obstruction due to adhesions Assessment/Plan: distal SBO likely related to adhesions, may be partial since pt is now passing some gas continue NGT to LCWS NPO - NO MEDS or anything via tube for now, NO ice chips IVF, UOP ok pain meds prn - avoid narcotics and NSAIDs as able IV Tylenol ordered NG output decreasing will consider PO contrast via tube in am and CT or serial XR to follow through GI on board holding aspirin and agrylin This patient is critically ill. Time spent reviewing chart, examining patient, talking with providers and/or family and documentation is 35 minutes. Code(s): K56.50 - INTESTNL ADHESIONS, UNSP TO PARTIAL VERSUS COMPLETE OBST (2) Ileus Code(s): K56.7 - ILEUS, UNSPECIFIED (3) Constipation Code(s): K59.00 - CONSTIPATION, UNSPECIFIED Qualifiers: Constipation type: drug induced constipation Qualified Code(s): K59.03 - Drug induced constipation (4) Irritable bowel syndrome with constipation Code(s): K58.1 - IRRITABLE BOWEL SYNDROME WITH CONSTIPATION (5) Compression fracture of lumbar vertebra Assessment/Plan: TLSO brace when up as per neuro/spine Code(s): S32.000A - WEDGE COMPRESSION FRACTURE OF UNSP LUMBAR VERTEBRA, INIT Qualifiers: Encounter type: initial encounter Lumbar vertebra fracture level: L1 Fracture type: closed Qualified Code(s): S32.010A - Wedge compression fracture of first lumbar vertebra, initial encounter for closed fracture (6) [id number] kidney injury Assessment/Plan: renal on board, BUN/Cr improving continue IVF/NPO/NGT monitor lytes closely Code(s): N17.9 - ACUTE KIDNEY FAILURE, UNSPECIFIED; N18.9 - CHRONIC KIDNEY DISEASE, UNSPECIFIED Qualifiers: Acute renal failure type: unspecified Chronic kidney disease stage: unspecified stage Qualified Code(s): N17.9 - Acute kidney failure, unspecified ; N18.9 - Chronic kidney disease, unspecified (7) Paroxysmal supraventricular tachycardia Code(s): I47.1 - SUPRAVENTRICULAR TACHYCARDIA (8) Abdominal pain Code(s): R10.9 - UNSPECIFIED ABDOMINAL PAIN Qualifiers: Abdominal location: lower abdomen, unspecified Qualified Code(s): R10.30 - Lower abdominal pain, unspecified (9) Anxiety Code(s): F41.9 - ANXIETY DISORDER, UNSPECIFIED (10) COPD (chronic obstructive pulmonary disease) Assessment/Plan: on venti mask avoid bipap to avoid gastric distention per ICU, low threshold for intubation pulmonary changes at bases poss from aspiration encourage pulm toilet - encourage IS, pulm toilet Code(s): J44.9 - CHRONIC OBSTRUCTIVE PULMONARY DISEASE, UNSPECIFIED Qualifiers: COPD type: unspecified COPD Qualified Code(s): J44.9 - Chronic obstructive pulmonary disease, unspecified (11) Essential thrombocytosis Assessment/Plan: cannot continue PO meds at this time hematology following Code(s): D47.3 - ESSENTIAL (HEMORRHAGIC) THROMBOCYTHEMIA (12) Myeloproliferative disorder Code(s): D47.1 - CHRONIC MYELOPROLIFERATIVE DISEASE
[2017-11-14] MEDS: CHLORHEXIDINE GLUCONATE 4% CLEANSER FOR DECOLONIZATION TP SCH (21:54)
[2017-11-14 22:02] LABS: BASO % 1.5 % (0-2.0); EOS % 0.5 % (0-4.5); HEMATOCRIT 43.3 % (32.4-45.2); HEMOGLOBIN 12.9 GM/dL (10.7-15.3); LYMPH % 1.6 % (8-40); MCH 25.8 pg (25.7-33.7); MCHC 29.7 g/dl (32.0-36.0); MEAN PLT VOLUME 10.8 fl (7.5-11.1); MONO % 0.8 % (3.8-10.2); NEUT % 95.6 % (42.8-82.8); PLATELET COUNT 601 K/MM3 (134-434); RBC 4.98 M/mm3 (3.60-5.2); RDW 18.4 % (11.6-15.6); WHITE BLOOD COUNT 27.3 K/mm3 (4.0-10.0)
[2017-11-14 23:07] LABS: PLATELET ESTIMATE INCREASED
[2017-11-15] MEDS ORDERED: SODIUM CHLORIDE 100 ML IVPB ONE ×4 (02:53→20:40)
[2017-11-15] MEDS ORDERED: AMPICILLIN NA/SULBACTAM NA 1.5 GM VIAL ONE ×4 (02:53→20:40)
[2017-11-15] MEDS: AMPICILLIN NA/SULBACTAM NA 1.5 GM in SODIUM CHLORIDE 100 ML IVPB SCH ×4 (02:55→21:02)
[2017-11-15] MEDS: METOPROLOL TARTRATE 5 MG/5 ML VIAL IVPUSH SCH ×4 (02:55→21:01)
[2017-11-15] MEDS: ACETAMINOPHEN 1000 MG/100 ML VIAL (NON FORMULARY) IVPB PRN ×2 (03:11→21:01)
[2017-11-15] MEDS: PROCHLORPERAZINE INJECTION 10 MG/2 ML VIAL IVPB PRN (03:50)
[2017-11-15] MEDS ORDERED: HYDROmorphone HCL CARPU-JECT 1 MG/1 ML DISP.SYRIN IVPUSH STA (05:26)
[2017-11-15] MEDS ORDERED: MORPHINE SULFATE 2 MG/ML VIAL IVPUSH STA (05:31)
[2017-11-15 05:51] LABS: BASO % 0.5 % (0-2.0); EOS % 0.7 % (0-4.5); HEMATOCRIT 40.5 % (32.4-45.2); HEMOGLOBIN 12.3 GM/dL (10.7-15.3); LYMPH % 2.4 % (8-40); MCH 26.3 pg (25.7-33.7); MCHC 30.3 g/dl (32.0-36.0); MEAN CELL VOLUME 86.8 fl (80-96); MEAN PLT VOLUME 9.4 fl (7.5-11.1); MONO % 2.5 % (3.8-10.2); NEUT % 93.9 % (42.8-82.8); PLATELET COUNT 556 K/MM3 (134-434); RBC 4.67 M/mm3 (3.60-5.2); RDW 18.2 % (11.6-15.6); WHITE BLOOD COUNT 24.8 K/mm3 (4.0-10.0)
[2017-11-15] MEDS: HEPARIN NA (PORCINE) 5,000 UNITS/ML 1ML VIAL SQ SCH ×3 (05:55→21:02)
[2017-11-15 06:15] LABS: ALBUMIN 2.6 g/dl (3.4-5.0); ALK PHOS 81 U/L (45-117); ANION GAP 5 (8-16); BILIRUBIN,TOTAL 0.3 mg/dL (0.2-1.0); BLOOD UREA NITROGEN 39 mg/dL (7-18); CALCIUM 7.8 mg/dL (8.5-10.1); CHLORIDE 97 mmol/L (98-107); CO2 42 mmol/L (21-32); CREATININE 1.2 mg/dL (0.55-1.02); GLUCOSE,RANDOM 113 mg/dL (74-106); MAGNESIUM 1.9 mg/dL (1.8-2.4); PHOSPHOROUS 2.3 mg/dL (2.5-4.9); POTASSIUM 3.9 mmol/L (3.5-5.1); SGOT/AST 15 U/L (15-37); SGPT/ALT 15 U/L (12-78); SODIUM 144 mmol/L (136-145); TOT PROT 5.1 g/dl (6.4-8.2)
[2017-11-15] MEDS: DEXTROSE 5%-0.45% SALINE 1,000 ML IV SCH (08:02)
[2017-11-15] MEDS: ALBUTEROL SO4 0.083% IH SOL 2.5 MG/3 ML VIAL.NEB. NEB SCH ×4 (08:35→20:22)
[2017-11-15] MEDS ORDERED: POTASSIUM PHOSPHATE 15 MM in DEXTROSE 5%-WATER - 250 ML IVPB ONE (09:00)
[2017-11-15] MEDS: TIOTROPIUM BROMIDE 18 MCG CAPSULES IH SCH (09:36)
[2017-11-15] MEDS: methylPREDNISolone NA SUCC 40 MG/1 ML VIAL IVPUSH SCH (09:41)
[2017-11-15] MEDS: LIDOCAINE 5% TOPICAL PATCH TP SCH (09:41)
[2017-11-15] MEDS: MUPIROCIN 2% TOPICAL OINTMENT FOR DECOLONIZATION NS SCH ×2 (10:30→21:02)
--- NOTE | 2017-11-15 10:43 | PN ---
Progress Note, Physician History of Present Illness: Pt seen and examined in bed in ICU. She is resting comfortably, no complaints of pain or nausea. She is passing a little gas and had a small pellet of stool yesterday. NGT output has been decreasing, ~1L/day. Pt on O2 by NC with sats 98% . Feeling very dry. - Current Medication List Current Medications: Active Medications Acetaminophen (Ofirmev Injection -) 1,000 mg IVPB Q6H PRN PRN Reason: PAIN LEVEL 4 - 6 Last Admin: 11/15/17 03:11 Dose: 1,000 mg Albuterol Sulfate (Ventolin 0.083% Nebulizer Soln -) 1 amp NEB Q4H PRN PRN Reason: SHORT OF BREATH/WHEEZING Albuterol Sulfate (Ventolin 0.083% Nebulizer Soln -) 1 amp NEB RQID [facility] Last Admin: 11/15/17 08:35 Dose: 1 amp Chlorhexidine Gluconate (Hibiclens For Decolonization -) 1 applic TP HS [facility] Last Admin: 11/14/17 21:54 Dose: 1 applic Heparin Sodium (Porcine) (Heparin -) 5,000 unit SQ TID [facility] Last Admin: 11/15/17 05:55 Dose: 5,000 unit Hydralazine HCl (Apresoline Injection -) 10 mg IVPUSH Q6H PRN PRN Reason: HYPERTENSION Ampicillin Sodium/Sulbactam (Sodium 1.5 gm/ Sodium Chloride) 100 mls @ 200 mls/ hr IVPB Q6H-IV [facility] Last Admin: 11/15/17 09:37 Dose: 200 mls/hr Dextrose/Sodium Chloride (D5-1/2ns -) 1,000 mls @ 35 mls/hr IV ASDIR [facility] Last Admin: 11/15/17 08:02 Dose: 35 mls/hr Amino Acids (Clinimix -) 1,000 mls @ 42 mls/hr IV Q24H [facility] Last Admin: 11/14/17 17:44 Dose: 42 mls/hr Potassium Phosphate 15 mm/ (Dextrose) 255 mls @ 62.5 mls/hr IVPB ONCE ONE Stop: 11/15/17 13:04 Last Admin: 11/15/17 10:28 Dose: 62.5 mls/hr Lidocaine (Lidoderm Patch -) 1 patch TP DAILY [facility] Last Admin: 11/15/17 09:41 Dose: 1 patch Lorazepam (Ativan Injection -) 0.5 mg IVPUSH Q6H PRN PRN Reason: ANXIETY Last Admin: 11/14/17 22:00 Dose: 0.5 mg Methylprednisolone Sodium Succinate (Solu-Medrol -) 16 mg IVPUSH DAILY [facility] Last Admin: 11/15/17 09:41 Dose: 16 mg Metoprolol Tartrate (Lopressor Injection -) 5 mg IVPUSH Q6H-IV [facility] Last Admin: 11/15/17 09:40 Dose: 5 mg Miscellaneous (Lidoderm Patch Removal) 1 each MC DAILY@2200 [facility] Mupirocin (Bactroban Ointment (For Decolonization) -) 1 applic NS BID [facility] Stop: 11/16/17 07:59 Last Admin: 11/15/17 10:30 Dose: 1 applic Prochlorperazine Edisylate (Compazine Injection -) 2.5 mg IVPB Q3H PRN PRN Reason: NAUSEA AND/OR VOMITING Last Admin: 11/15/17 03:50 Dose: 2.5 mg Saliva Substitute (Mouthkote Solution -) 1 applic MM DAILY [facility] Last Admin: 11/14/17 10:55 Dose: 1 applic Tiotropium [place] (Spiriva -) 1 puff IH DAILY [facility] Last Admin: 11/15/17 09:36 Dose: 1 puff - Objective Vital Signs: Vital Signs Temperature 98.3 F 11/15/17 10:00 Pulse Rate 74 11/15/17 10:00 Respiratory Rate 20 11/15/17 10:00 Blood Pressure 135/74 11/15/17 10:00 O2 Sat by Pulse Oximetry (%) 95 11/14/17 22:00 Constitutional: Yes: Well Nourished, No Distress, Calm Eyes: Yes: Conjunctiva Clear, EOM Intact HENT: Yes: Atraumatic, Normocephalic, Other (NGT in place) Gastrointestinal: Yes: Soft, Distention (tympanic), Hypoactive Bowel Sounds. No : Tenderness ...Rectal Exam: Yes: Deferred Genitourinary: No: Tillman Present Extremities: No: Cool, Cyanosis Integumentary: No: Jaundice, Rash Neurological: Yes: Alert, Oriented Labs: CBC, BMP 11/15/17 05:30 06/20/18 05:30 Phos normal Mg 1.9 - ....Imaging Cat Scan: Pending Problem List - Problems (1) Small bowel obstruction due to adhesions Assessment/Plan: distal SBO likely related to adhesions, may be partial? NPO - NO MEDS via tube for now, NO ice chips Tillman out, voiding in commode on Clinimix and IVF not needing pain meds - avoid narcotics as able IV Tylenol prn NG output decreasing will give PO contrast via NGT and get CT 2-2.5 hrs after contrast in today if nephrology ok with IV contrast, would do and continue hydration discussed with Dr. Limon of ICU team clamp NG until CT done and read if n/v, place NGT back to suction pending CT results and contrast passage, discussed with patient possibility of needing surgery holding aspirin and agrylin This patient is critically ill. Time spent reviewing chart, examining patient, talking with providers and/or family and documentation is 35 minutes. Code(s): K56.50 - INTESTNL ADHESIONS, UNSP TO PARTIAL VERSUS COMPLETE OBST (2) Ileus Code(s): K56.7 - ILEUS, UNSPECIFIED (3) Constipation Code(s): K59.00 - CONSTIPATION, UNSPECIFIED Qualifiers: Constipation type: drug induced constipation Qualified Code(s): K59.03 - Drug induced constipation (4) Irritable bowel syndrome with constipation Code(s): K58.1 - IRRITABLE BOWEL SYNDROME WITH CONSTIPATION (5) Compression fracture of lumbar vertebra Code(s): S32.000A - WEDGE COMPRESSION FRACTURE OF UNSP LUMBAR VERTEBRA, INIT Qualifiers: Encounter type: initial encounter Lumbar vertebra fracture level: L1 Fracture type: closed Qualified Code(s): S32.010A - Wedge compression fracture of first lumbar vertebra, initial encounter for closed fracture (6) Qgiyo-di-fvthqzu kidney injury Code(s): N17.9 - ACUTE KIDNEY FAILURE, UNSPECIFIED; N18.9 - CHRONIC KIDNEY DISEASE, UNSPECIFIED Qualifiers: Acute renal failure type: unspecified Chronic kidney disease stage: unspecified stage Qualified Code(s): N17.9 - Acute kidney failure, unspecified ; N18.9 - Chronic kidney disease, unspecified (7) Paroxysmal supraventricular tachycardia Code(s): I47.1 - SUPRAVENTRICULAR TACHYCARDIA (8) Abdominal pain Code(s): R10.9 - UNSPECIFIED ABDOMINAL PAIN Qualifiers: Abdominal location: lower abdomen, unspecified Qualified Code(s): R10.30 - Lower abdominal pain, unspecified (9) Anxiety Code(s): F41.9 - ANXIETY DISORDER, UNSPECIFIED (10) COPD (chronic obstructive pulmonary disease) Code(s): J44.9 - CHRONIC OBSTRUCTIVE PULMONARY DISEASE, UNSPECIFIED Qualifiers: COPD type: unspecified COPD Qualified Code(s): J44.9 - Chronic obstructive pulmonary disease, unspecified (11) Essential thrombocytosis Code(s): D47.3 - ESSENTIAL (HEMORRHAGIC) THROMBOCYTHEMIA (12) Myeloproliferative disorder Code(s): D47.1 - CHRONIC MYELOPROLIFERATIVE DISEASE
--- NOTE | 2017-11-15 11:19 | PN ---
Physical Exam: SUBJECTIVE: Patient seen and examined at bed side in ICU NGT drainage 200 CC since AM, over 1 L in 24 hr , denies any chest pain abdominal pain or sob. continue conservative management pt is improving passing gases , active BS , asking for food. had elevated BP started on Hydralyzin PRN OBJECTIVE: Vital Signs Period Temp Pulse Resp BP Sys/Palacios Pulse Ox Last 24 Hr 98 F-98.7 F 69-96 20-23 83-175/54-95 95-95 GENERAL: AAOx3 in NAD HEAD: NC/AT EYES: PERRL, EOMI, sclera anicteric, conjunctiva clear. ENT: Ears normal, nares patent, oropharynx clear without exudates, dry mucous membranes. NECK: Trachea midline, supple. LUNGS: decrease breath sound at right base , no wheezes, no crackles, no accessory muscle use. HEART: Regular rate and rhythm, S1, S2 without murmur, rub or gallop. ABDOMEN: Soft, tender to deep palpation , distended, active bowel sounds, no guarding, no rebound,para umbilical hernia 5x5 cm EXTREMITIES: 2+ pulses, warm, well-perfused, no edema. NEUROLOGICAL: Cranial nerves II through XII grossly intact. Normal speech, gait not observed. Laboratory Results - last 24 hr 11/14/17 11/15/17 11/15/17 21:30 05:30 05:30 WBC 27.3 H 24.8 H RBC 4.98 4.67 Hgb 12.9 12.3 Hct 43.3 40.5 MCV 87.0 86.8 MCH 25.8 26.3 MCHC 29.7 L 30.3 L RDW 18.4 H 18.2 H Plt Count 601 H 556 H MPV 10.8 D 9.4 D Absolute Neuts (auto) 26.1 23.3 Neutrophils % 95.6 H 93.9 H Neutrophils % (Manual) 92.0 H Band Neutrophils % 5.0 Lymphocytes % 1.6 L D 2.4 L D Lymphocytes % (Manual) 1.0 L D Monocytes % 0.8 L 2.5 L D Monocytes % (Manual) 0 L D Eosinophils % 0.5 0.7 Eosinophils % (Manual) 1.0 Basophils % 1.5 0.5 Basophils % (Manual) 0.0 Myelocytes % (Man) 1 D Nucleated RBC % 0 0 Platelet Estimate Increased Platelet Comment Large platelets Sodium 144 Potassium 3.9 Chloride 97 L Carbon Dioxide 42 H Anion Gap 5 L BUN 39 H Creatinine 1.2 H Creat Clearance w eGFR 44.81 Random Glucose 113 H Calcium 7.8 L Phosphorus 2.3 L Magnesium 1.9 Total Bilirubin 0.3 D AST 15 ALT 15 Alkaline Phosphatase 81 Total Protein 5.1 L Albumin 2.6 L Active Medications Generic Name Dose Route Start Last Admin Trade Name Freq PRN Reason Stop Dose Admin Acetaminophen 1,000 mg 11/13/17 16:05 11/15/17 03:11 Ofirmev Injection - IVPB 1,000 mg Q6H PRN Administration PAIN LEVEL 4 - 6 Albuterol Sulfate 1 amp 11/11/17 07:07 Ventolin 0.083% Nebulizer Soln - NEB Q4H PRN SHORT OF BREATH/WHEEZING Albuterol Sulfate 1 amp 11/14/17 12:00 11/15/17 08:35 Ventolin 0.083% Nebulizer Soln - NEB 1 amp RQID [facility] Administration Chlorhexidine Gluconate 1 applic 11/11/17 07:07 11/14/17 21:54 Hibiclens For Decolonization - TP 1 applic HS [facility] Administration Heparin Sodium (Porcine) 5,000 unit 11/11/17 14:00 11/15/17 05:55 Heparin - SQ 5,000 unit TID [facility] Administration Hydralazine HCl 10 mg 11/14/17 06:39 Apresoline Injection - IVPUSH Q6H PRN HYPERTENSION Ampicillin Sodium/Sulbactam 100 mls @ 200 mls/hr 11/14/17 15:00 11/15/17 09: 37 Sodium 1.5 gm/ Sodium Chloride IVPB 200 mls/hr Q6H-IV [facility] Administration Dextrose/Sodium Chloride 1,000 mls @ 35 mls/hr 11/14/17 15:03 11/15/17 08:02 D5-1/2ns - IV 35 mls/hr ASDIR [facility] Administration Amino Acids 1,000 mls @ 42 mls/hr 11/14/17 15:30 11/14/17 17:44 Clinimix - IV 42 mls/hr Q24H [facility] Administration Potassium Phosphate 15 mm/ 255 mls @ 62.5 mls/hr 11/15/17 09:00 11/15/17 10: 28 Dextrose IVPB 11/15/17 13:04 62.5 mls/hr ONCE ONE Administration Lidocaine 1 patch 11/15/17 10:00 11/15/17 09:41 Lidoderm Patch - TP 1 patch DAILY [facility] Administration Lorazepam 0.5 mg 11/12/17 02:22 11/14/17 22:00 Ativan Injection - IVPUSH 0.5 mg Q6H PRN Administration ANXIETY Methylprednisolone Sodium Succinate 16 mg 11/14/17 15:15 11/15/17 09:41 Solu-Medrol - IVPUSH 16 mg DAILY [facility] Administration Metoprolol Tartrate 5 mg 11/13/17 15:00 11/15/17 09:40 Lopressor Injection - IVPUSH 5 mg Q6H-IV [facility] Administration Miscellaneous 1 each 11/15/17 22:00 Lidoderm Patch Removal MC DAILY@2200 [facility] Mupirocin 1 applic 11/11/17 08:00 11/15/17 10:30 Bactroban Ointment (For Decolonization) - NS 11/16/17 07:59 1 applic BID [facility] Administration Prochlorperazine Edisylate 2.5 mg 11/11/17 07:07 11/15/17 03:50 Compazine Injection - IVPB 2.5 mg Q3H PRN Administration NAUSEA AND/OR VOMITING Saliva Substitute 1 applic 11/10/17 16:15 11/14/17 10:55 Mouthkote Solution - MM 1 applic DAILY [facility] Administration Tiotropium [place] 1 puff 11/11/17 10:00 11/15/17 09:36 Spiriva - IH 1 puff DAILY [facility] Administration CBC, BMP 11/15/17 05:30 11/15/17 05:30 ASSESSMENT/PLAN: 67 yo Fpresented with back pain and found later to have SBO and was admitted to ICU for further evaluation # GI - Small bowel obstruction partial high grade * had 2 previous abd surgery and use of narcotics could participate to the SBO * abdomen distneded, soft , pass flatus but no BM yet . * CT abdomen reviewed * NPO * IV fluids * cont abx Unacyn * NGT drain 300cc since AM * monitor lytes * pain medicine Tyelnol , avoids narcotics * continue conservative management for now till NGT drainage decrease will consider barium study , poor surgical candidate * surgery consulted * GI consulted dr benton agree with the plan and avoid reglan # Pulm - Acute on chronic respiratory distress due to PNA -COPD * CXR with worsening B/L changes pulm and pleural * repeat CXr in AM * cont ABX unasyn * insentive spirometry * aspiration precautions * bronchodilators #Nephro -RICHARD on CKD * Improving * Cont. D5W/1/2 NS # New onset hypernatremia , resolved * on D5w * repeat BMP #Neuro - Anxiety * Ativan 0.5 Q 6hr - L1 fracture * AOx3 * Lidoderm patch, TLSO * DEXA as outpatient * poor surgical candidate # Cardiovascular -HTN uncontrolled * On lopressor q6h * hydralasin 10 IV PRN in AM if needed # Heme -Myeloproliferative disorder * WBC and plt at baseline #FEN * F: D5w/1/2 NS @ 75 CC * E: monitor * N: NPO # DVT ppx * Heparin sq TID #Dispo * Cont to monitor in ICU * Full code * discuss with dr Christopher GARCIA who agreed with the plan and ICU team . Total critical time 45 min Visit type - Emergency Visit Emergency Visit: Yes ED Registration Date: 11/09/17 Care time: The patient presented to the Emergency Department on the above date and was hospitalized for further evaluation of their emergent condition. - New Patient This patient is new to me today: No - Critical Care Critical Care patient: Yes Total Critical Care Time (in minutes): 45 Critical Care Statement: The care of this patient involved high complexity decision making to prevent further life threatening deterioration of the patient 's condition and/or to evaluate & treat vital organ system(s) failure or risk of failure.
--- NOTE | 2017-11-15 11:45 | PN ---
Teaching Attending Note Name of Resident: Maynor Weiner ATTENDING PHYSICIAN STATEMENT I saw and evaluated the patient. I reviewed the resident's note and discussed the case with the resident. I agree with the resident's findings and plan as documented. SUBJECTIVE: Pt seen and examined in the ICU. Still with significant NGT output. No nausea or vomiting. No abdominal pain. + flatus. OBJECTIVE: Vital Signs Period Temp Pulse Resp BP Sys/Palacios Pulse Ox Last 24 Hr 98 F-98.7 F 69-96 20-23 83-175/54-95 95-95 Intake & Output 11/12/17 11/13/17 11/14/17 11/15/17 23:59 23:59 23:59 23:59 Intake Total 2325 1775 2484 639 Output Total 2850 7455 2550 500 Balance -525 -725 -66 139 Weight 51.165 kg 53.977 kg 53.932 kg 51.936 kg Gen: NAD at rest Heart: RRR Lung: decreased breath sounds at the bases Abd: softly distended, nontender, hypoactive bowel sounds Ext: no edema CBC, BMP 11/15/17 05:30 11/15/17 05:30 Active Medications Acetaminophen (Ofirmev Injection -) 1,000 mg IVPB Q6H PRN PRN Reason: PAIN LEVEL 4 - 6 Last Admin: 11/15/17 03:11 Dose: 1,000 mg Albuterol Sulfate (Ventolin 0.083% Nebulizer Soln -) 1 amp NEB Q4H PRN PRN Reason: SHORT OF BREATH/WHEEZING Albuterol Sulfate (Ventolin 0.083% Nebulizer Soln -) 1 amp NEB RQID [facility] Last Admin: 11/15/17 08:35 Dose: 1 amp Chlorhexidine Gluconate (Hibiclens For Decolonization -) 1 applic TP HS [facility] Last Admin: 11/14/17 21:54 Dose: 1 applic Heparin Sodium (Porcine) (Heparin -) 5,000 unit SQ TID [facility] Last Admin: 11/15/17 05:55 Dose: 5,000 unit Hydralazine HCl (Apresoline Injection -) 10 mg IVPUSH Q6H PRN PRN Reason: HYPERTENSION Ampicillin Sodium/Sulbactam (Sodium 1.5 gm/ Sodium Chloride) 100 mls @ 200 mls/ hr IVPB Q6H-IV [facility] Last Admin: 11/15/17 09:37 Dose: 200 mls/hr Dextrose/Sodium Chloride (D5-1/2ns -) 1,000 mls @ 35 mls/hr IV ASDIR [facility] Last Admin: 11/15/17 08:02 Dose: 35 mls/hr Amino Acids (Clinimix -) 1,000 mls @ 42 mls/hr IV Q24H [facility] Last Admin: 11/14/17 17:44 Dose: 42 mls/hr Potassium Phosphate 15 mm/ (Dextrose) 255 mls @ 62.5 mls/hr IVPB ONCE ONE Stop: 11/15/17 13:04 Last Admin: 11/15/17 10:28 Dose: 62.5 mls/hr Lidocaine (Lidoderm Patch -) 1 patch TP DAILY [facility] Last Admin: 11/15/17 09:41 Dose: 1 patch Lorazepam (Ativan Injection -) 0.5 mg IVPUSH Q6H PRN PRN Reason: ANXIETY Last Admin: 11/14/17 22:00 Dose: 0.5 mg Methylprednisolone Sodium Succinate (Solu-Medrol -) 16 mg IVPUSH DAILY [facility] Last Admin: 11/15/17 09:41 Dose: 16 mg Metoprolol Tartrate (Lopressor Injection -) 5 mg IVPUSH Q6H-IV [facility] Last Admin: 11/15/17 09:40 Dose: 5 mg Miscellaneous (Lidoderm Patch Removal) 1 each MC DAILY@2200 [facility] Mupirocin (Bactroban Ointment (For Decolonization) -) 1 applic NS BID [facility] Stop: 11/16/17 07:59 Last Admin: 11/15/17 10:30 Dose: 1 applic Prochlorperazine Edisylate (Compazine Injection -) 2.5 mg IVPB Q3H PRN PRN Reason: NAUSEA AND/OR VOMITING Last Admin: 11/15/17 03:50 Dose: 2.5 mg Saliva Substitute (Mouthkote Solution -) 1 applic MM DAILY [facility] Last Admin: 11/14/17 10:55 Dose: 1 applic Tiotropium [place] (Spiriva -) 1 puff IH DAILY [facility] Last Admin: 11/15/17 09:36 Dose: 1 puff ASSESSMENT AND PLAN: Small Bowel Obstruction Pneumonia Acute on Chronic Hypoxic and Hypercapneic Respiratory Failure Acute on Chronic Renal Failure COPD Myeloproliferative Disorder Lumbar Compression Fracture HTN - CT A/P with oral contrast - continue antibiotics - NGT to intermittent low wall suction - continue clinimix, increase rate - monitor urine output, creatinine - monitor lytes - inhaled bronchodilators - O2 to keep SpO2 >90% - await return of bowel function - DVT prophylaxis - continue ICU monitoring critical care time spent in reviewing chart, evaluating patient and formulating plan 35 min
--- NOTE | 2017-11-15 12:13 | PN ---
Progress Note, Physician History of Present Illness: Abd distension improved, NGT inserted with decreased output. Tachycardia improved on IV Lopressor, receiving TPN, passing small flatus and stool. - Current Medication List Current Medications: Active Medications Acetaminophen (Ofirmev Injection -) 1,000 mg IVPB Q6H PRN PRN Reason: PAIN LEVEL 4 - 6 Last Admin: 11/15/17 03:11 Dose: 1,000 mg Albuterol Sulfate (Ventolin 0.083% Nebulizer Soln -) 1 amp NEB Q4H PRN PRN Reason: SHORT OF BREATH/WHEEZING Albuterol Sulfate (Ventolin 0.083% Nebulizer Soln -) 1 amp NEB RQID [facility] Last Admin: 11/15/17 12:11 Dose: 1 amp Chlorhexidine Gluconate (Hibiclens For Decolonization -) 1 applic TP HS [facility] Last Admin: 11/14/17 21:54 Dose: 1 applic Heparin Sodium (Porcine) (Heparin -) 5,000 unit SQ TID [facility] Last Admin: 11/15/17 05:55 Dose: 5,000 unit Hydralazine HCl (Apresoline Injection -) 10 mg IVPUSH Q6H PRN PRN Reason: HYPERTENSION Ampicillin Sodium/Sulbactam (Sodium 1.5 gm/ Sodium Chloride) 100 mls @ 200 mls/ hr IVPB Q6H-IV [facility] Last Admin: 11/15/17 09:37 Dose: 200 mls/hr Potassium Phosphate 15 mm/ (Dextrose) 255 mls @ 62.5 mls/hr IVPB ONCE ONE Stop: 11/15/17 13:04 Last Admin: 11/15/17 10:28 Dose: 62.5 mls/hr Multivitamins/Minerals 10 ml/ (Amino Acids) 2,010 mls @ 83 mls/hr IV Q24H [facility] Lidocaine (Lidoderm Patch -) 1 patch TP DAILY [facility] Last Admin: 11/15/17 09:41 Dose: 1 patch Lorazepam (Ativan Injection -) 0.5 mg IVPUSH Q6H PRN PRN Reason: ANXIETY Last Admin: 11/14/17 22:00 Dose: 0.5 mg Methylprednisolone Sodium Succinate (Solu-Medrol -) 16 mg IVPUSH DAILY [facility] Last Admin: 11/15/17 09:41 Dose: 16 mg Metoprolol Tartrate (Lopressor Injection -) 5 mg IVPUSH Q6H-IV [facility] Last Admin: 11/15/17 09:40 Dose: 5 mg Miscellaneous (Lidoderm Patch Removal) 1 each MC DAILY@2200 [facility] Mupirocin (Bactroban Ointment (For Decolonization) -) 1 applic NS BID [facility] Stop: 11/16/17 07:59 Last Admin: 11/15/17 10:30 Dose: 1 applic Prochlorperazine Edisylate (Compazine Injection -) 2.5 mg IVPB Q3H PRN PRN Reason: NAUSEA AND/OR VOMITING Last Admin: 11/15/17 03:50 Dose: 2.5 mg Saliva Substitute (Mouthkote Solution -) 1 applic MM DAILY [facility] Last Admin: 11/14/17 10:55 Dose: 1 applic Tiotropium [place] (Spiriva -) 1 puff IH DAILY [facility] Last Admin: 11/15/17 09:36 Dose: 1 puff - Objective Vital Signs: Vital Signs Temperature 98.3 F 11/15/17 10:00 Pulse Rate 74 11/15/17 10:00 Respiratory Rate 20 11/15/17 10:00 Blood Pressure 135/74 11/15/17 10:00 O2 Sat by Pulse Oximetry (%) 95 11/14/17 22:00 Constitutional: Yes: No Distress, Calm, Thin Neck: Yes: Supple Cardiovascular: Yes: Regular Rate and Rhythm Respiratory: Yes: Regular, Diminished, On Nasal O2 Gastrointestinal: Yes: Distention, Hypoactive Bowel Sounds Edema: No Labs: CBC, BMP 11/15/17 05:30 11/15/17 05:30 - ....Imaging Chest X-ray: Report Reviewed (Better aeration right hemithorax) X-ray: Report Reviewed (SBO) Problem List - Problems (1) Ofkpj-ro-eihpzyp kidney injury Code(s): N17.9 - ACUTE KIDNEY FAILURE, UNSPECIFIED; N18.9 - CHRONIC KIDNEY DISEASE, UNSPECIFIED Qualifiers: Acute renal failure type: unspecified Chronic kidney disease stage: unspecified stage Qualified Code(s): N17.9 - Acute kidney failure, unspecified ; N18.9 - Chronic kidney disease, unspecified (2) Paroxysmal supraventricular tachycardia Code(s): I47.1 - SUPRAVENTRICULAR TACHYCARDIA (3) Acute on chronic respiratory failure with hypoxia and hypercapnia Code(s): J96.21 - ACUTE AND CHRONIC RESPIRATORY FAILURE WITH HYPOXIA; J96.22 - ACUTE AND CHRONIC RESPIRATORY FAILURE WITH HYPERCAPNIA (4) Closed fracture of lumbar vertebral body Code(s): S32.009A - UNSP FRACTURE OF UNSP LUMBAR VERTEBRA, INIT FOR CLOS FX (5) COPD (chronic obstructive pulmonary disease) Code(s): J44.9 - CHRONIC OBSTRUCTIVE PULMONARY DISEASE, UNSPECIFIED Qualifiers: COPD type: unspecified COPD Qualified Code(s): J44.9 - Chronic obstructive pulmonary disease, unspecified (6) Myeloproliferative disorder Code(s): D47.1 - CHRONIC MYELOPROLIFERATIVE DISEASE (7) Hyperkalemia Code(s): E87.5 - HYPERKALEMIA (8) Small bowel obstruction due to adhesions Code(s): K56.50 - INTESTNL ADHESIONS, UNSP TO PARTIAL VERSUS COMPLETE OBST Assessment/Plan Echo: Jun 20, 2017 Normal LV size with hyperdynamic LV fxn, tr MR, TR mod pulm HTN RVSP 47 mmHg 1. PSVT ectopic atrial tachycardia vs. sinus tachycardia, unlikely to be AV aleksandra reentrant or accessory pathway mediated tachycardia (Adenosine non responsive) 2. Acute on chronic hypercapneic, hypoxic respiratory failure, pneumonia possible aspiration 3. COPD, on chronic steroid and home O2 dependent, PNA 4. Hypertension 5. Myeloproliferative disorder 6. Acute on CKD with hyperkalemia improved 7. Distal small bowel obstruction likely related to adhesions 8. Lumber spine compression fracture PLAN: 1. Empiric antibiotic course as per the primary 2. Bronchodilators as per the primary team 3. Continue IV Lopressor as needed, IV hydralazine hemodynamics permitting 4. NGT to intermittent low wall suction, TPN 5. BD, O2 to keep SpO2 >90%, await return of bowel function 6. DVT prophylaxis 7. F/u abd&pelvic CT
[2017-11-15 12:28] LABS: ANISOCYTOSIS 2+; MACROCYTOSIS 0; PLATELET ESTIMATE INCREASED; TEAR DROP CELLS 1+
--- NOTE | 2017-11-15 13:08 | PN ---
Progress Note, Physician History of Present Illness: Pt seen and examined at bedside. She is awake and alert. She denies shortness of breath. - Current Medication List Current Medications: Active Medications Acetaminophen (Ofirmev Injection -) 1,000 mg IVPB Q6H PRN PRN Reason: PAIN LEVEL 4 - 6 Last Admin: 11/15/17 03:11 Dose: 1,000 mg Albuterol Sulfate (Ventolin 0.083% Nebulizer Soln -) 1 amp NEB Q4H PRN PRN Reason: SHORT OF BREATH/WHEEZING Albuterol Sulfate (Ventolin 0.083% Nebulizer Soln -) 1 amp NEB RQID RANDI Last Admin: 11/15/17 12:11 Dose: 1 amp Chlorhexidine Gluconate (Hibiclens For Decolonization -) 1 applic TP HS RANDI Last Admin: 11/14/17 21:54 Dose: 1 applic Heparin Sodium (Porcine) (Heparin -) 5,000 unit SQ TID RANDI Last Admin: 11/15/17 05:55 Dose: 5,000 unit Hydralazine HCl (Apresoline Injection -) 10 mg IVPUSH Q6H PRN PRN Reason: HYPERTENSION Ampicillin Sodium/Sulbactam (Sodium 1.5 gm/ Sodium Chloride) 100 mls @ 200 mls/ hr IVPB Q6H-IV [facility] Last Admin: 11/15/17 09:37 Dose: 200 mls/hr Potassium Phosphate 15 mm/ (Dextrose) 255 mls @ 62.5 mls/hr IVPB ONCE ONE Stop: 11/15/17 13:04 Last Admin: 11/15/17 10:28 Dose: 62.5 mls/hr Amino Acids (Clinimix -) 1,000 mls @ 83 mls/hr IV Q12H [facility] Lidocaine (Lidoderm Patch -) 1 patch TP DAILY [facility] Last Admin: 11/15/17 09:41 Dose: 1 patch Lorazepam (Ativan Injection -) 0.5 mg IVPUSH Q6H PRN PRN Reason: ANXIETY Last Admin: 11/14/17 22:00 Dose: 0.5 mg Methylprednisolone Sodium Succinate (Solu-Medrol -) 16 mg IVPUSH DAILY [facility] Last Admin: 11/15/17 09:41 Dose: 16 mg Metoprolol Tartrate (Lopressor Injection -) 5 mg IVPUSH Q6H-IV [facility]I Last Admin: 11/15/17 09:40 Dose: 5 mg Miscellaneous (Lidoderm Patch Removal) 1 each MC DAILY@2200 [facility] Multivitamins/Minerals (Infuvite Adult -) 10 ml IV Q24H [facility] Mupirocin (Bactroban Ointment (For Decolonization) -) 1 applic NS BID RANDI Stop: 11/16/17 07:59 Last Admin: 11/15/17 10:30 Dose: 1 applic Prochlorperazine Edisylate (Compazine Injection -) 2.5 mg IVPB Q3H PRN PRN Reason: NAUSEA AND/OR VOMITING Last Admin: 11/15/17 03:50 Dose: 2.5 mg Saliva Substitute (Mouthkote Solution -) 1 applic MM DAILY RANDI Last Admin: 11/14/17 10:55 Dose: 1 applic Tiotropium [place] (Spiriva -) 1 puff IH DAILY [facility] Last Admin: 11/15/17 09:36 Dose: 1 puff - Objective Vital Signs: Vital Signs Temperature 98.3 F 11/15/17 10:00 Pulse Rate 74 11/15/17 10:00 Respiratory Rate 20 11/15/17 10:00 Blood Pressure 135/74 11/15/17 10:00 O2 Sat by Pulse Oximetry (%) 95 11/14/17 22:00 Constitutional: Yes: Calm Eyes: Yes: Conjunctiva Clear HENT: Yes: Atraumatic Neck: Yes: Supple Cardiovascular: Yes: S1, S2 Respiratory: Yes: CTA Bilaterally Gastrointestinal: Yes: Soft, Other (ng tube) Genitourinary: Yes: Bennett Present Musculoskeletal: Yes: WNL Edema: No Neurological: Yes: Oriented Psychiatric: Yes: Oriented Labs: CBC, BMP 11/15/17 05:30 11/15/17 05:30 Problem List - Problems (1) Ileus Code(s): K56.7 - ILEUS, UNSPECIFIED (2) Small bowel obstruction due to adhesions Code(s): K56.50 - INTESTNL ADHESIONS, UNSP TO PARTIAL VERSUS COMPLETE OBST (3) CKD (chronic kidney disease) Code(s): N18.9 - CHRONIC KIDNEY DISEASE, UNSPECIFIED Assessment/Plan Current Medications Generic Name Dose Route Start Last Admin Trade Name Freq PRN Reason Stop Dose Admin Acetaminophen 1,000 mg 11/13/17 16:05 11/15/17 03:11 Ofirmev Injection - IVPB 1,000 mg Q6H PRN Administration PAIN LEVEL 4 - 6 Albuterol Sulfate 1 amp 11/11/17 07:07 Ventolin 0.083% Nebulizer Soln - NEB Q4H PRN SHORT OF BREATH/WHEEZING Albuterol Sulfate 1 amp 11/14/17 12:00 11/15/17 12:11 Ventolin 0.083% Nebulizer Soln - NEB 1 amp RQID RANDI Administration Chlorhexidine Gluconate 1 applic 11/11/17 07:07 11/14/17 21:54 Hibiclens For Decolonization - TP 1 applic HS RANDI Administration Heparin Sodium (Porcine) 5,000 unit 11/11/17 14:00 11/15/17 05:55 Heparin - SQ 5,000 unit TID RANDI Administration Hydralazine HCl 10 mg 11/14/17 06:39 Apresoline Injection - IVPUSH Q6H PRN HYPERTENSION Ampicillin Sodium/Sulbactam 100 mls @ 200 mls/hr 11/14/17 15:00 11/15/17 09: 37 Sodium 1.5 gm/ Sodium Chloride IVPB 200 mls/hr Q6H-IV RANDI Administration Amino Acids 1,000 mls @ 83 mls/hr 11/15/17 11:59 Clinimix - IV Q12H RANDI Lidocaine 1 patch 11/15/17 10:00 11/15/17 09:41 Lidoderm Patch - TP 1 patch DAILY RANDI Administration Lorazepam 0.5 mg 11/12/17 02:22 11/14/17 22:00 Ativan Injection - IVPUSH 0.5 mg Q6H PRN Administration ANXIETY Methylprednisolone Sodium Succinate 16 mg 11/14/17 15:15 11/15/17 09:41 Solu-Medrol - IVPUSH 16 mg DAILY RANDI Administration Metoprolol Tartrate 5 mg 11/13/17 15:00 11/15/17 09:40 Lopressor Injection - IVPUSH 5 mg Q6H-IV RANDI Administration Miscellaneous 1 each 11/15/17 22:00 Lidoderm Patch Removal MC DAILY@2200 [facility] Multivitamins/Minerals 10 ml 11/15/17 14:00 Infuvite Adult - IV Q24H RANDI Mupirocin 1 applic 11/11/17 08:00 11/15/17 10:30 Bactroban Ointment (For Decolonization) - NS 11/16/17 07:59 1 applic BID RANDI Administration Prochlorperazine Edisylate 2.5 mg 11/11/17 07:07 11/15/17 03:50 Compazine Injection - IVPB 2.5 mg Q3H PRN Administration NAUSEA AND/OR VOMITING Saliva Substitute 1 applic 11/10/17 16:15 11/14/17 10:55 Mouthkote Solution - MM 1 applic DAILY RANDI Administration Tiotropium [place] 1 puff 11/11/17 10:00 11/15/17 09:36 Spiriva - IH 1 puff DAILY RANDI Administration Impression 1. CKD with acute component 2. hyperkalemia - likely in part pseudohyperkalemia 3. copd exacerbation 4. essential thrombocytosis 5. htn 6. anxiety 7. diverticulosis 8. hemorrhoids 9. leukocytosis 10. SBO Plan - bennett replaced as she was in retention - fluids changed to just clinimix - discussed IV contrast for CT scan and risk of STEPHAN. Pt bonilla not want to take any IV contrast. She understands the risks clearly. - follow up ct with po contrast - discussed with ICU team - renal function is improving - sodium is stable - will follow Dr Argueta
[2017-11-15] MEDS ORDERED: MULTIVIT INJ. ADULT COMBO WITH VIT K 1 COMBO 10 ML VIAL IV SCH (14:00)
[2017-11-15] MEDS: AMINO ACIDS 4.25%/D5W 1,000 ML IV SCH (15:48)
[2017-11-15] MEDS: LORazepam 2 MG/ML SDV VIAL IVPUSH PRN ×2 (17:06→22:49)
[2017-11-15] MEDS ORDERED: PT OWN MED DRAWER 7, Y5N ONE (17:11)
--- NOTE | 2017-11-15 17:26 | PN ---
Physical Exam: SUBJECTIVE: Patient seen and examined. C/o of back pain, not releved with tylenol injection. Pt given one time dose of morphine overnight. Had some disorientation overnight, unsure of where she was. Not compliant on ventimask, back on NC-3L. Not SOB this am. Passed flatus and small bowel movement yesterday. NGT still draining significant amounts. No fevers, no abdominal pain. Resumed steroids iv to aid respiration. Kidney function continuing to improve on D5/1/2 NS. Now on clinimix, pending access for TPN. OBJECTIVE: Vital Signs Period Temp Pulse Resp BP Sys/Palacios Pulse Ox Last 24 Hr 98 F-98.5 F 69-96 20-23 117-175/54-95 95-99 GENERAL: The patient is awake, alert, and fully oriented, on NC-3L ENT: NGT in place intermittent suction LUNGS: Reduced Breath sounds lung bases, clear to auscultation bilaterally, no wheezes, no crackles HEART: Regular rate and rhythm, S1, S2 ABDOMEN: Soft, nontender, mildly distended, hypo to absent bowel sounds, no guarding, EXTREMITIES: 2+ pulses, warm, well-perfused, no edema. NEUROLOGICAL: AAOx3, no facial droop, able to move all extremities PSYCH: anxious. CBC, BMP 11/15/17 05:30 11/15/17 05:30 Laboratory Results - last 24 hr 11/14/17 11/15/17 11/15/17 21:30 05:30 05:30 WBC 27.3 H 24.8 H RBC 4.98 4.67 Hgb 12.9 12.3 Hct 43.3 40.5 MCV 87.0 86.8 MCH 25.8 26.3 MCHC 29.7 L 30.3 L RDW 18.4 H 18.2 H Plt Count 601 H 556 H MPV 10.8 D 9.4 D Absolute Neuts (auto) 26.1 23.3 Neutrophils % 95.6 H 93.9 H Neutrophils % (Manual) 92.0 H 88.0 H Band Neutrophils % 5.0 4.0 Lymphocytes % 1.6 L D 2.4 L D Lymphocytes % (Manual) 1.0 L D 4.0 L D Monocytes % 0.8 L 2.5 L D Monocytes % (Manual) 0 L D 2 L D Eosinophils % 0.5 0.7 Eosinophils % (Manual) 1.0 0.0 D Basophils % 1.5 0.5 Basophils % (Manual) 0.0 0.0 Myelocytes % (Man) 1 D 1 Promyelocytes % (Man) 0 Blast Cells % (Manual) 0 Nucleated RBC % 0 0 Metamyelocytes 0 Hypochromia 0 Platelet Estimate Increased Increased Platelet Comment Large platelets Present Polychromasia 0 Poikilocytosis 1+ Basophilic Stippling 1+ Anisocytosis 2+ Microcytosis 2+ Macrocytosis 0 Tear Drop Cells 1+ Schistocytes 1+ Sodium 144 Potassium 3.9 Chloride 97 L Carbon Dioxide 42 H Anion Gap 5 L BUN 39 H Creatinine 1.2 H Creat Clearance w eGFR 44.81 Random Glucose 113 H Calcium 7.8 L Phosphorus 2.3 L Magnesium 1.9 Total Bilirubin 0.3 D AST 15 ALT 15 Alkaline Phosphatase 81 Total Protein 5.1 L Albumin 2.6 L Current Medications Acetaminophen (Ofirmev Injection -) 1,000 mg IVPB Q6H PRN PRN Reason: PAIN LEVEL 4 - 6 Last Admin: 11/16/17 03:11 Dose: 1,000 mg Albuterol Sulfate (Ventolin 0.083% Nebulizer Soln -) 1 amp NEB Q4H PRN PRN Reason: SHORT OF BREATH/WHEEZING Albuterol Sulfate (Ventolin 0.083% Nebulizer Soln -) 1 amp NEB RQID [facility] Last Admin: 11/15/17 20:22 Dose: Not Given Chlorhexidine Gluconate (Hibiclens For Decolonization -) 1 applic TP HS [facility] Last Admin: 11/15/17 21:02 Dose: 1 applic Heparin Sodium (Porcine) (Heparin -) 5,000 unit SQ TID [facility] Last Admin: 11/15/17 21:02 Dose: 5,000 unit Hydralazine HCl (Apresoline Injection -) 10 mg IVPUSH Q6H PRN PRN Reason: HYPERTENSION Ampicillin Sodium/Sulbactam (Sodium 1.5 gm/ Sodium Chloride) 100 mls @ 200 mls/ hr IVPB Q6H-IV [facility] Last Admin: 11/16/17 03:10 Dose: 200 mls/hr Amino Acids (Clinimix -) 1,000 mls @ 83 mls/hr IV Q12H [facility] Last Admin: 11/16/17 02:00 Dose: 83 mls/hr Lidocaine (Lidoderm Patch -) 1 patch TP DAILY [facility] Last Admin: 11/15/17 09:41 Dose: 1 patch Lorazepam (Ativan Injection -) 0.5 mg IVPUSH Q6H PRN PRN Reason: ANXIETY Last Admin: 11/15/17 22:49 Dose: 0.5 mg Methylprednisolone Sodium Succinate (Solu-Medrol -) 16 mg IVPUSH DAILY [facility] Last Admin: 11/15/17 09:41 Dose: 16 mg Metoprolol Tartrate (Lopressor Injection -) 5 mg IVPUSH Q6H-IV [facility] Last Admin: 11/16/17 03:10 Dose: 5 mg Miscellaneous (Lidoderm Patch Removal) 1 each MC DAILY@2200 [facility] Last Admin: 11/15/17 21:02 Dose: 1 each Multivitamins/Minerals (Infuvite Adult -) 10 ml IV Q24H [facility] Last Admin: 11/15/17 15:48 Dose: 10 ml Mupirocin (Bactroban Ointment (For Decolonization) -) 1 applic NS BID [facility] Stop: 11/16/17 07:59 Last Admin: 11/15/17 21:02 Dose: 1 applic Prochlorperazine Edisylate (Compazine Injection -) 2.5 mg IVPB Q3H PRN PRN Reason: NAUSEA AND/OR VOMITING Last Admin: 11/15/17 03:50 Dose: 2.5 mg Saliva Substitute (Mouthkote Solution -) 1 applic MM DAILY [facility] Last Admin: 11/15/17 18:47 Dose: 1 applic Tiotropium [place] (Spiriva -) 1 puff IH DAILY [facility] Last Admin: 11/15/17 09:36 Dose: 1 puff Ambulatory Orders Albuterol Sulfate [Proair Hfa -] 1 - 2 inh PO PRN PRN 01/28/14 Alprazolam [Xanax] 0.25 mg PO PRN PRN 07/21/16 Anagrelide HCl [Agrylin -] 0.5 mg PO TID 11/14/16 Linaclotide [Linzess] 72 mcg PO Q2D 02/06/17 Albuterol 0.083% Nebulizer Chika [Ventolin 0.083% Nebulizer Soln -] 1 amp NEB Q4H PRN amp 06/24/17 Aspirin [ASA -] 81 mg PO DAILY tab.chew 06/24/17 Hydroxyurea [Hydrea 500Mg Capsule -] 500 mg PO MoWeFr@1000 capsule 06/24/17 Allopurinol [Zyloprim -] 200 mg PO DAILY 10/25/17 Roflumilast [Daliresp -] 500 mcg PO Q2D 10/25/17 Tiotropium [place] [Spiriva] 1 inh IH DAILY 10/25/17 traZODone HCL [Desyrel -] 100 mg PO HS 10/25/17 Oxycodone HCl/Acetaminophen [Percocet 5-325 mg Tablet] 1 - 2 tab PO Q6H PRN #20 tab MDD 8 tabs 10/31/17 Prednisone [Deltasone] 20 mg PO DAILY 11/08/[address] without contrast 11/06/17: Acute L1 vertebral body compression fracture CT abd w/o contrast- likely ileus- AXR- showed ileus R/O bowel obstruction Background chronically shrunken kidneys- abd/pelvic US-showing bladder and kidneys AXR- 11/15/17- appears obstruction is improving CT a/p with po contrast-11/15/17-Per Dr Gracia's D/W radiologist Shows some contrast in colon, most likely is same contrast that was present in colon on CT last week. Contrast in small bowel present in normal loops, also fluid without contrast present in dilated loops, with one segment of SB abnormally thickened with contrast in it, but difficult to trace clearly proximally and distally. There also may be a transition zone in SB without contrast in it, under midline in lower abdomen. Overall, distention of proximal bowel is less than last week. Small bowel findings highly suggestive of continued obstruction and abnormal loop of unclear import ASSESSMENT/PLAN: Patient is a 67 year old female with significant past medical history of COPD on 3 L and steroids , MPD on aspirin, thrombocytosis, Hepatosplenomegaly, CKD, anxiety, cardiomegaly, h/o of floaters, h/o diverticulitis s/p partial colectomy presented with severe left sided lower back pain, found to have L1 lumbar compression fracture, had Atrial tachycardia, intractable vomiting with AMS and aspiration PNA, found to have ileus Ileus with partial SBO CTa/p 6/20/18-suggestive of continous obstruction AXR in am Cont NPO, NO ice chips- per sx, Hx of flatus - bowel sounds more reduced NGT -on intermittent drainage Continue Unasyn considering persistent SBO GI consult- apprec recs Sx consult- apprec recs- if obstruction persists- pt may require trnasfer to a tertiary institution considering multiple comorbidites and previous surgeries with adhesions Monitor Dry mouth Pt kept requestig ice chips Saliva substitute HTN Cont Lopressor Q6H iv hydralazine 10mg Q6H Lower back pain acute L1 vertebral body compression fracture-likely due to chronic steroid use Local pain mx preferable- continue lidocaine patch Cont to avoid opiates in setting of SBO As per Dr. Morales -TLSO brace for comfort - pt not using it as she said it is big and uncomfortable Will need outpatient DEXA scan and workup for osteoporosis Acute metabolic encephalopathy Likely due to sepsis with aspiration PNA Pt back to baseline Cont Unasyn Cont fluids- D5/1/2NS #Acute on chronic respiratory failure Improved, NC, pt not compliant on ventimask Pt on 3L home oxygen with COPD Cont Solumed #Aspiration PNA Continue Unasyn- Day 6 Aspiration precautions Oxygen as needed #Tachycardia-likely atrial tachycardia Now sinus tachy Appeared like SVT but did not break with adenosine or cardizem Pt maintained on lopressor due to failed cardizem Cardiol-Dr Thomas appreciate 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 # Anxiety Cont Iv ativan 0.5 Q6H # Hyperkalemia normalized Pseudo hyperkalemia Plasma K lower Nephro on board Oncology on board #Hypernatremia Resolved # COPD: Not in exacerbation continue Oxygen supplementation Steroids dcd # CKD: Cr -improving Cr 1., - baseline of 1.5 FeUrea- prerenal picture Likely due to dehydration from vomiting Avoid nephrotoxic substances Cont Iv hydration Nephro on board # Myeloproliferative Disorder: Agrilyn on hold as pt is NPO Apprec recs-hemonc - per Dr Medrano #Chest pain Resolved Could be musculoskeletal related to retching R/O ACS Pt is currently tachycardic- could be due to anxiety or pain ativan 0.5mg Q6h prn # IBS Hold Linaclotide #hypernatremia Now on D5/1/2NS # Prophylaxis For DVT: On Heparin 5000 IU sq TID For GI: Not indicated # FEN IV D51/2NS @ 75mls/hr for Acute on chronic CKD, Monitor dee NPO # Dispo: ICU, pending return of bowel function, for transfer to tertiary instititution for Sx if persisting Visit type - Emergency Visit Emergency Visit: Yes ED Registration Date: 11/09/17 Care time: The patient presented to the Emergency Department on the above date and was hospitalized for further evaluation of their emergent condition. - New Patient This patient is new to me today: No - Critical Care Critical Care patient: Yes Total Critical Care Time (in minutes): 50 Critical Care Statement: The care of this patient involved high complexity decision making to prevent further life threatening deterioration of the patient 's condition and/or to evaluate & treat vital organ system(s) failure or risk of failure.
--- NOTE | 2017-11-15 18:16 | PN ---
Teaching Attending Note Name of Resident: Margo Lewis ATTENDING PHYSICIAN STATEMENT I saw and evaluated the patient. I reviewed the resident's note and discussed the case with the resident. I agree with the resident's findings and plan as documented with exceptions below. SUBJECTIVE: Patient seen and examined. breathing overall unchanged, passing gas, no BM, no nausea, vomiting, reports some back pain today. OBJECTIVE: Vital Signs Period Temp Pulse Resp BP Sys/Palacios Pulse Ox Last 24 Hr 98 F-98.5 F 69-96 20-23 117-175/54-95 95-99 Intake & Output 11/12/17 11/13/17 11/14/17 11/15/17 23:59 23:59 23:59 23:59 Intake Total 2325 1775 2484 1752 Output Total 2850 2500 2550 1100 Balance -525 -725 -66 652 Weight 112 lb 12.8 oz 119 lb 118 lb 14.4 oz 114 lb 8 oz General: lying in bed, tachypnea improved Abdomen:soft, distended, non tender, hypoactive bowel sounds today Extremities: no edema Chest: poor effort, limited exam Home Medications Medication Instructions Recorded Albuterol Sulfate [Proair Hfa -] 1 - 2 inh PO PRN PRN 01/28/14 Alprazolam [Xanax] 0.25 mg PO PRN PRN 07/21/16 Anagrelide HCl [Agrylin -] 0.5 mg PO TID 11/14/16 Linaclotide [Linzess] 72 mcg PO Q2D 02/06/17 Albuterol 0.083% Nebulizer Chika 1 amp NEB Q4H PRN amp 06/24/17 [Ventolin 0.083% Nebulizer Soln -] Aspirin [ASA -] 81 mg PO DAILY tab.chew 06/24/17 Hydroxyurea [Hydrea 500Mg Capsule 500 mg PO MoWeFr@1000 capsule 06/24/17 -] Allopurinol [Zyloprim -] 200 mg PO DAILY 10/25/17 Roflumilast [Daliresp -] 500 mcg PO Q2D 10/25/17 Tiotropium [place] [Spiriva] 1 inh IH DAILY 10/25/17 traZODone HCL [Desyrel -] 100 mg PO HS 10/25/17 Oxycodone HCl/Acetaminophen 1 - 2 tab PO Q6H PRN #20 tab MDD 8 10/31/17 [Percocet 5-325 mg Tablet] tabs Prednisone [Deltasone] 20 mg PO DAILY 11/08/17 Active Medications Acetaminophen (Ofirmev Injection -) 1,000 mg IVPB Q6H PRN PRN Reason: PAIN LEVEL 4 - 6 Last Admin: 11/15/17 03:11 Dose: 1,000 mg Albuterol Sulfate (Ventolin 0.083% Nebulizer Soln -) 1 amp NEB Q4H PRN PRN Reason: SHORT OF BREATH/WHEEZING Albuterol Sulfate (Ventolin 0.083% Nebulizer Soln -) 1 amp NEB RQID [facility] Last Admin: 11/15/17 16:35 Dose: Not Given Chlorhexidine Gluconate (Hibiclens For Decolonization -) 1 applic TP HS [facility] Last Admin: 11/14/17 21:54 Dose: 1 applic Heparin Sodium (Porcine) (Heparin -) 5,000 unit SQ TID [facility] Last Admin: 11/15/17 16:12 Dose: 5,000 unit Hydralazine HCl (Apresoline Injection -) 10 mg IVPUSH Q6H PRN PRN Reason: HYPERTENSION Ampicillin Sodium/Sulbactam (Sodium 1.5 gm/ Sodium Chloride) 100 mls @ 200 mls/ hr IVPB Q6H-IV [facility] Last Admin: 11/15/17 16:11 Dose: 200 mls/hr Amino Acids (Clinimix -) 1,000 mls @ 83 mls/hr IV Q12H [facility] Last Admin: 11/15/17 15:48 Dose: 83 mls/hr Lidocaine (Lidoderm Patch -) 1 patch TP DAILY [facility] Last Admin: 11/15/17 09:41 Dose: 1 patch Lorazepam (Ativan Injection -) 0.5 mg IVPUSH Q6H PRN PRN Reason: ANXIETY Last Admin: 11/15/17 17:06 Dose: 0.5 mg Methylprednisolone Sodium Succinate (Solu-Medrol -) 16 mg IVPUSH DAILY [facility] Last Admin: 11/15/17 09:41 Dose: 16 mg Metoprolol Tartrate (Lopressor Injection -) 5 mg IVPUSH Q6H-IV [facility] Last Admin: 11/15/17 16:11 Dose: 5 mg Miscellaneous (Lidoderm Patch Removal) 1 each MC DAILY@2200 [facility] Multivitamins/Minerals (Infuvite Adult -) 10 ml IV Q24H [facility] Last Admin: 11/15/17 15:48 Dose: 10 ml Mupirocin (Bactroban Ointment (For Decolonization) -) 1 applic NS BID [facility] Stop: 11/16/17 07:59 Last Admin: 11/15/17 10:30 Dose: 1 applic Prochlorperazine Edisylate (Compazine Injection -) 2.5 mg IVPB Q3H PRN PRN Reason: NAUSEA AND/OR VOMITING Last Admin: 11/15/17 03:50 Dose: 2.5 mg Saliva Substitute (M[place] Solution -) 1 applic MM DAILY [facility] Last Admin: 11/14/17 10:55 Dose: 1 applic Tiotropium [place] (Spiriva -) 1 puff IH DAILY [facility] Last Admin: 11/15/17 09:36 Dose: 1 puff Laboratory Results - last 24 hr 11/14/17 11/15/17 11/15/17 21:30 05:30 05:30 WBC 27.3 H 24.8 H RBC 4.98 4.67 Hgb 12.9 12.3 Hct 43.3 40.5 MCV 87.0 86.8 MCH 25.8 26.3 MCHC 29.7 L 30.3 L RDW 18.4 H 18.2 H Plt Count 601 H 556 H MPV 10.8 D 9.4 D Absolute Neuts (auto) 26.1 23.3 Neutrophils % 95.6 H 93.9 H Neutrophils % (Manual) 92.0 H 88.0 H Band Neutrophils % 5.0 4.0 Lymphocytes % 1.6 L D 2.4 L D Lymphocytes % (Manual) 1.0 L D 4.0 L D Monocytes % 0.8 L 2.5 L D Monocytes % (Manual) 0 L D 2 L D Eosinophils % 0.5 0.7 Eosinophils % (Manual) 1.0 0.0 D Basophils % 1.5 0.5 Basophils % (Manual) 0.0 0.0 Myelocytes % (Man) 1 D 1 Promyelocytes % (Man) 0 Blast Cells % (Manual) 0 Nucleated RBC % 0 0 Metamyelocytes 0 Hypochromia 0 Platelet Estimate Increased Increased Platelet Comment Large platelets Present Polychromasia 0 Poikilocytosis 1+ Basophilic Stippling 1+ Anisocytosis 2+ Microcytosis 2+ Macrocytosis 0 Tear Drop Cells 1+ Schistocytes 1+ Sodium 144 Potassium 3.9 Chloride 97 L Carbon Dioxide 42 H Anion Gap 5 L BUN 39 H Creatinine 1.2 H Creat Clearance w eGFR 44.81 Random Glucose 113 H Calcium 7.8 L Phosphorus 2.3 L Magnesium 1.9 Total Bilirubin 0.3 D AST 15 ALT 15 Alkaline Phosphatase 81 Total Protein 5.1 L Albumin 2.6 L Microbiology 11/09/17 21:00 Urine - Urine - Catheterized Urine Culture - Final NO GROWTH OBTAINED 11/07/17 17:50 Urine - Urine Clean Catch Urine Culture - Final NO GROWTH OBTAINED ASSESSMENT AND PLAN: 67yo F with PMH COPD on home O2 3L NC, anxiety, myeloproliferative disorder, thrombophilia, diverticulosis s/p partial colectomy presented to the ER with low back pain, L1 fracture, course complicated by partial SBO vs ileus and RLL PNA likely aspiration. -Partial SBO vs ileus -RLL PNA, likely aspiration from vomiting. -Acute hypoxic/hypercapneic respiratory failure, off Bipap -Atrial tachycardia, improved -RICHARD on CKD, likely dehydration -Chronic steroid/oxygen dependent COPD -Hyperkalemia, resolved -HTN -Myeloproliferative disorder with leucocytosis/thrombophilia -Anxiety Plan: Persistent NG tube output, CT A/P with some improvement. COntinue NPO, NG tube, conservative management, follow up with surgery. Avoid opiods. Back pain today, resume lidocaine patch. Avoid opioids. Patient declines TLSO brace. Outpatient DEXA scan. Continue unasyn for now with aspiration precautions. Taper off oxygen as tolerated. Continue home steroids. Cardiology input noted. Continue lopressor q6h. Hydralazine prn. Trend CBC. DVTPPX heparin Dispo pending clinical improvement. Plan discussed with patient in detail, all questions answered. Total critical care time spent in ICU 40 min.
[2017-11-15] MEDS: LYTES/YERBA SANTA 240 ML BOTTLE MM SCH (18:47)
[2017-11-15] MEDS: CHLORHEXIDINE GLUCONATE 4% CLEANSER FOR DECOLONIZATION TP SCH (21:02)
[2017-11-15] MEDS: LIDOCAINE PATCH REMOVAL MC SCH (21:02)
[2017-11-16] MEDS: AMINO ACIDS 4.25%/D5W 1,000 ML IV SCH ×2 (02:00→14:09)
[2017-11-16] MEDS ORDERED: SODIUM CHLORIDE 100 ML IVPB ONE ×3 (03:02→15:20)
[2017-11-16] MEDS ORDERED: AMPICILLIN NA/SULBACTAM NA 1.5 GM VIAL ONE ×3 (03:02→15:20)
[2017-11-16] MEDS: AMPICILLIN NA/SULBACTAM NA 1.5 GM in SODIUM CHLORIDE 100 ML IVPB SCH ×3 (03:10→15:27)
[2017-11-16] MEDS: METOPROLOL TARTRATE 5 MG/5 ML VIAL IVPUSH SCH ×4 (03:10→21:34)
[2017-11-16] MEDS: ACETAMINOPHEN 1000 MG/100 ML VIAL (NON FORMULARY) IVPB PRN ×3 (03:11→19:52)
[2017-11-16] MEDS: HEPARIN NA (PORCINE) 5,000 UNITS/ML 1ML VIAL SQ SCH ×3 (05:50→21:36)
--- NOTE | 2017-11-16 05:58 | PN ---
Physical Exam: SUBJECTIVE:Patient seen and examined at bed side in ICU NGT drainage 300 CC since AM, over 1 L in 24 hr , denies any chest pain abdominal pain or sob. continue conservative management pt is improving passing gases , active BS , asking for food. had elevated BP started on Hydralyzin PRN cebtral line was place for TPN OBJECTIVE: Vital Signs Period Temp Pulse Resp BP Sys/Palacios Pulse Ox Last 24 Hr 98 F-98.7 F 71-85 17-26 116-158/56-95 98-99 GENERAL: AAOx3 in NAD HEAD: NC/AT EYES: PERRL, EOMI, sclera anicteric, conjunctiva clear. ENT: Ears normal, nares patent, oropharynx clear without exudates, dry mucous membranes. NECK: Trachea midline, supple. LUNGS: decrease breath sound at right base , no wheezes, no crackles, no accessory muscle use. HEART: Regular rate and rhythm, S1, S2 without murmur, rub or gallop. ABDOMEN: Soft, NT , distended, active bowel sounds, no guarding, no rebound, para umbilical hernia 5x5 cm EXTREMITIES: 2+ pulses, warm, well-perfused, no edema. NEUROLOGICAL: Cranial nerves II through XII grossly intact. Normal speech, gait not observed. Laboratory Results - last 24 hr 11/15/17 11/15/17 05:30 05:30 WBC 24.8 H RBC 4.67 Hgb 12.3 Hct 40.5 MCV 86.8 MCH 26.3 MCHC 30.3 L RDW 18.2 H Plt Count 556 H MPV 9.4 D Absolute Neuts (auto) 23.3 Neutrophils % 93.9 H Neutrophils % (Manual) 88.0 H Band Neutrophils % 4.0 Lymphocytes % 2.4 L D Lymphocytes % (Manual) 4.0 L D Monocytes % 2.5 L D Monocytes % (Manual) 2 L D Eosinophils % 0.7 Eosinophils % (Manual) 0.0 D Basophils % 0.5 Basophils % (Manual) 0.0 Myelocytes % (Man) 1 Promyelocytes % (Man) 0 Blast Cells % (Manual) 0 Nucleated RBC % 0 Metamyelocytes 0 Hypochromia 0 Platelet Estimate Increased Platelet Comment Present Polychromasia 0 Poikilocytosis 1+ Basophilic Stippling 1+ Anisocytosis 2+ Microcytosis 2+ Macrocytosis 0 Tear Drop Cells 1+ Schistocytes 1+ Sodium 144 Potassium 3.9 Chloride 97 L Carbon Dioxide 42 H Anion Gap 5 L BUN 39 H Creatinine 1.2 H Creat Clearance w eGFR 44.81 Random Glucose 113 H Calcium 7.8 L Phosphorus 2.3 L Magnesium 1.9 Total Bilirubin 0.3 D AST 15 ALT 15 Alkaline Phosphatase 81 Total Protein 5.1 L Albumin 2.6 L Active Medications Generic Name Dose Route Start Last Admin Trade Name Freq PRN Reason Stop Dose Admin Acetaminophen 1,000 mg 11/15/17 21:33 11/16/17 03:11 Ofirmev Injection - IVPB 1,000 mg Q6H PRN Administration PAIN LEVEL 4 - 6 Albuterol Sulfate 1 amp 11/11/17 07:07 Ventolin 0.083% Nebulizer Soln - NEB Q4H PRN SHORT OF BREATH/WHEEZING Albuterol Sulfate 1 amp 11/14/17 12:00 11/15/17 20:22 Ventolin 0.083% Nebulizer Soln - NEB Not Given RQID RANDI Chlorhexidine Gluconate 1 applic 11/11/17 07:07 11/15/17 21:02 Hibiclens For Decolonization - TP 1 applic HS RANDI Administration Heparin Sodium (Porcine) 5,000 unit 11/11/17 14:00 11/16/17 05:50 Heparin - SQ 5,000 unit TID RANDI Administration Hydralazine HCl 10 mg 11/14/17 06:39 Apresoline Injection - IVPUSH Q6H PRN HYPERTENSION Ampicillin Sodium/Sulbactam 100 mls @ 200 mls/hr 11/14/17 15:00 11/16/17 03: 10 Sodium 1.5 gm/ Sodium Chloride IVPB 200 mls/hr Q6H-IV RNADI Administration Amino Acids 1,000 mls @ 83 mls/hr 11/15/17 11:59 11/16/17 02:00 Clinimix - IV 83 mls/hr Q12H RANDI Administration Lidocaine 1 patch 11/15/17 10:00 11/15/17 09:41 Lidoderm Patch - TP 1 patch DAILY RANDI Administration Lorazepam 0.5 mg 11/12/17 02:22 11/15/17 22:49 Ativan Injection - IVPUSH 0.5 mg Q6H PRN Administration ANXIETY Methylprednisolone Sodium Succinate 16 mg 11/14/17 15:15 11/15/17 09:41 Solu-Medrol - IVPUSH 16 mg DAILY RANDI Administration Metoprolol Tartrate 5 mg 11/13/17 15:00 11/16/17 03:10 Lopressor Injection - IVPUSH 5 mg Q6H-IV RANDI Administration Miscellaneous 1 each 11/15/17 22:00 11/15/17 21:02 Lidoderm Patch Removal MC 1 each DAILY@2200 RANDI Administration Multivitamins/Minerals 10 ml 11/15/17 14:00 11/15/17 15:48 Infuvite Adult - IV 10 ml Q24H RANDI Administration Mupirocin 1 applic 11/11/17 08:00 11/15/17 21:02 Bactroban Ointment (For Decolonization) - NS 11/16/17 07:59 1 applic BID RANDI Administration Prochlorperazine Edisylate 2.5 mg 11/11/17 07:07 11/15/17 03:50 Compazine Injection - IVPB 2.5 mg Q3H PRN Administration NAUSEA AND/OR VOMITING Saliva Substitute 1 applic 11/10/17 16:15 11/15/17 18:47 Mouthkote Solution - MM 1 applic DAILY RANDI Administration Tiotropium [place] 1 puff 11/11/17 10:00 11/15/17 09:36 Spiriva - IH 1 puff DAILY RANDI Administration CBC, BMP 11/16/17 05:30 11/16/17 05:30 ASSESSMENT/PLAN: 67 yo F presented with back pain and found later to have SBO and was admitted to ICU for further evaluation # GI - Small bowel obstruction partial high grade * had 2 previous abd surgery and use of narcotics could participate to the SBO * abdomen distneded, soft , pass flatus but no BM yet. felt urge to go to bath room but No BM * CT abdomen reviewed * NPO * IV fluids * cont abx Unacyn * NGT drain 300cc since AM * monitor lytes * pain medicine Tyelnol , avoids narcotics * continue conservative management for nowbarium study , poor surgical candidate * surgery consulted would prefer pt to be transferred to tertiary facility due to high risk and comorbidities * Ct contrast shows SBO with minimal or no improvement * Central line was placed for TPN # Pulm - Acute on chronic respiratory distress due to PNA -COPD * CXR with worsening B/L changes pulm and pleural * repeat CXr in AM * cont ABX unasyn * insentive spirometry * aspiration precautions * bronchodilators #Nephro -RICHARD on CKD * Improving * Cont. D5W/1/2 NS # New onset hypernatremia , resolved * on D5w/1/2 NS * repeat BMP #Neuro - Anxiety * Ativan 0.5 Q 6hr - L1 fracture * AOx3 * Lidoderm patch, TLSO * DEXA as outpatient * poor surgical candidate # Cardiovascular -HTN uncontrolled * On lopressor q6h * hydralasin 10 IV PRN in AM if needed # Heme -Myeloproliferative disorder * WBC and plt at baseline #FEN * F: D5w//2 NS @ 75 CC * E: monitor * N: NPO # DVT ppx * Heparin sq TID #Dispo * Cont to monitor in ICU * Full code * discuss with dr Christopher GARCIA , General surgery who agreed with the plan and ICU team . Total critical time 45 min Visit type - Emergency Visit Emergency Visit: Yes ED Registration Date: 11/09/17 Care time: The patient presented to the Emergency Department on the above date and was hospitalized for further evaluation of their emergent condition. - New Patient This patient is new to me today: No - Critical Care Critical Care patient: Yes Total Critical Care Time (in minutes): 45 Critical Care Statement: The care of this patient involved high complexity decision making to prevent further life threatening deterioration of the patient 's condition and/or to evaluate & treat vital organ system(s) failure or risk of failure. - Discharge Referral Referred to [facility] No
[2017-11-16 06:06] LABS: BASO % 0.3 % (0-2.0); EOS % 1.3 % (0-4.5); HEMATOCRIT 42.8 % (32.4-45.2); HEMOGLOBIN 13.1 GM/dL (10.7-15.3); LYMPH % 3.5 % (8-40); MCH 26.6 pg (25.7-33.7); MCHC 30.6 g/dl (32.0-36.0); MEAN CELL VOLUME 86.8 fl (80-96); MEAN PLT VOLUME 9.1 fl (7.5-11.1); MONO % 2.8 % (3.8-10.2); NEUT % 92.1 % (42.8-82.8); PLATELET COUNT 526 K/MM3 (134-434); RBC 4.94 M/mm3 (3.60-5.2); RDW 18.6 % (11.6-15.6); WHITE BLOOD COUNT 26.7 K/mm3 (4.0-10.0)
[2017-11-16] MEDS ORDERED: IBUPROFEN 800 MG/8 ML IJ IVPB ONE (06:20)
[2017-11-16 06:31] LABS: ALBUMIN 2.7 g/dl (3.4-5.0); ANION GAP 3 (8-16); BLOOD UREA NITROGEN 36 mg/dL (7-18); CALCIUM 8.2 mg/dL (8.5-10.1); CHLORIDE 94 mmol/L (98-107); CO2 40 mmol/L (21-32); GLUCOSE,RANDOM 96 mg/dL (74-106); MAGNESIUM 1.7 mg/dL (1.8-2.4); PHOSPHOROUS 2.5 mg/dL (2.5-4.9); POTASSIUM 3.9 mmol/L (3.5-5.1); SGOT/AST 20 U/L (15-37); SGPT/ALT 18 U/L (12-78); SODIUM 137 mmol/L (136-145)
[2017-11-16 06:33] LABS: ALK PHOS 81 U/L (45-117); BILIRUBIN,TOTAL 0.4 mg/dL (0.2-1.0); TOT PROT 5.3 g/dl (6.4-8.2)
--- NOTE | 2017-11-16 07:15 | PN ---
Physical Exam: SUBJECTIVE: Patient seen and examined. No SOB or chest pain. NGT draining. Pt awake all night complaining of back pain despite non narcotic pain meds. Requesting muscle relaxant. Still passing flatus. No BM overnight. Pending imaging to review improvement OBJECTIVE: Vital Signs Period Temp Pulse Resp BP Sys/Palacios Pulse Ox Last 24 Hr 98 F-98.7 F 71-85 16-26 116-158/56-95 98-99 Vital Signs Temp 98.3 F 11/16/17 06:00 Pulse 73 11/16/17 06:00 Resp 16 11/16/17 06:00 BP 134/77 11/16/17 06:00 Pulse Ox 99 11/15/17 22:00 Intake & Output 11/15/17 11/15/17 11/16/17 11:59 23:59 11:59 Intake Total 639 1505 781 Output Total 1100 450 550 Balance -461 1055 231 Weight 51.936 kg 51.851 kg Intake: IV 539 955 581 Clinimix 850 581 D5-1/2Ns - 1,000 ml @ 35 294 105 mls/hr IV ASDIR RANDI Rx#: [id number] D5-1/2Ns - 1,000 ml @ 83 245 mls/hr IV ASDIR RANDI Rx#: [id number] IVPB 100 550 200 Output: Gastric Drainage 200 50 150 Urine 900 400 400 Tillman 600 400 400 Void 300 Other: Voiding Method Indwelling Catheter Bowel Movement No No Weight Measurement Method Built in [facility] Built in [facility] Intake & Output 11/13/17 11/14/17 11/15/17 11/16/17 23:59 23:59 23:59 23:59 Intake Total 1775 2484 2144 781 Output Total 2500 2550 1550 550 Balance -725 -66 594 231 Weight 53.977 kg 53.932 kg 51.936 kg 51.851 kg GENERAL: The patient is awake, and fully oriented, in no acute respiratory distress- On NC-3l. ENT:NGT in place. NC LUNGS: Breath sounds equal, clear to auscultation bilaterally, no wheezes, no crackles HEART: Regular rate and rhythm, S1, S2 without murmur. ABDOMEN: Soft, non tender, mildly distended,unable to appreciate bowel sounds EXTREMITIES: 2+ pulses, warm, well-perfused, no edema. NEUROLOGICAL: AAOx3. Able to move all extremities PSYCH: Anxious CBC, BMP 11/16/17 05:30 11/16/17 05:30 Laboratory Results - last 24 hr 11/15/17 11/16/17 11/16/17 05:30 05:30 05:30 WBC 26.7 H RBC 4.94 Hgb 13.1 Hct 42.8 MCV 86.8 MCH 26.6 MCHC 30.6 L RDW 18.6 H Plt Count 526 H MPV 9.1 Absolute Neuts (auto) 24.6 Neutrophils % 92.1 H Neutrophils % (Manual) 88.0 H Band Neutrophils % 4.0 Lymphocytes % 3.5 L D Lymphocytes % (Manual) 4.0 L D Monocytes % 2.8 L Monocytes % (Manual) 2 L D Eosinophils % 1.3 D Eosinophils % (Manual) 0.0 D Basophils % 0.3 Basophils % (Manual) 0.0 Myelocytes % (Man) 1 Promyelocytes % (Man) 0 Blast Cells % (Manual) 0 Nucleated RBC % 0 Metamyelocytes 0 Hypochromia 0 Platelet Estimate Increased Platelet Comment Present Polychromasia 0 Poikilocytosis 1+ Basophilic Stippling 1+ Anisocytosis 2+ Microcytosis 2+ Macrocytosis 0 Tear Drop Cells 1+ Schistocytes 1+ Sodium 137 Potassium 3.9 Chloride 94 L Carbon Dioxide 40 H Anion Gap 3 L BUN 36 H Creatinine 1.0 Creat Clearance w eGFR 55.30 Random Glucose 96 Calcium 8.2 L Phosphorus 2.5 Magnesium 1.7 L Total Bilirubin 0.4 D AST 20 ALT 18 Alkaline Phosphatase 81 Total Protein 5.3 L Albumin 2.7 L Current Medications Acetaminophen (Ofirmev Injection -) 1,000 mg IVPB Q6H PRN PRN Reason: PAIN LEVEL 4 - 6 Last Admin: 11/16/17 03:11 Dose: 1,000 mg Albuterol Sulfate (Ventolin 0.083% Nebulizer Soln -) 1 amp NEB Q4H PRN PRN Reason: SHORT OF BREATH/WHEEZING Albuterol Sulfate (Ventolin 0.083% Nebulizer Soln -) 1 amp NEB RQID RANDI Last Admin: 11/15/17 20:22 Dose: Not Given Chlorhexidine Gluconate (Hibiclens For Decolonization -) 1 applic TP HS [facility] Last Admin: 11/15/17 21:02 Dose: 1 applic Heparin Sodium (Porcine) (Heparin -) 5,000 unit SQ TID [facility] Last Admin: 11/16/17 05:50 Dose: 5,000 unit Hydralazine HCl (Apresoline Injection -) 10 mg IVPUSH Q6H PRN PRN Reason: HYPERTENSION Ampicillin Sodium/Sulbactam (Sodium 1.5 gm/ Sodium Chloride) 100 mls @ 200 mls/ hr IVPB Q6H-IV [facility] Last Admin: 11/16/17 03:10 Dose: 200 mls/hr Amino Acids (Clinimix -) 1,000 mls @ 83 mls/hr IV Q12H [facility] Last Admin: 11/16/17 02:00 Dose: 83 mls/hr Lidocaine (Lidoderm Patch -) 1 patch TP DAILY [facility] Last Admin: 11/15/17 09:41 Dose: 1 patch Lorazepam (Ativan Injection -) 0.5 mg IVPUSH Q6H PRN PRN Reason: ANXIETY Last Admin: 11/15/17 22:49 Dose: 0.5 mg Methylprednisolone Sodium Succinate (Solu-Medrol -) 16 mg IVPUSH DAILY [facility] Last Admin: 11/15/17 09:41 Dose: 16 mg Metoprolol Tartrate (Lopressor Injection -) 5 mg IVPUSH Q6H-IV [facility] Last Admin: 11/16/17 03:10 Dose: 5 mg Miscellaneous (Lidoderm Patch Removal) 1 each MC DAILY@2200 [facility] Last Admin: 11/15/17 21:02 Dose: 1 each Multivitamins/Minerals (Infuvite Adult -) 10 ml IV Q24H [facility] Last Admin: 11/15/17 15:48 Dose: 10 ml Mupirocin (Bactroban Ointment (For Decolonization) -) 1 applic NS BID [facility] Stop: 11/16/17 07:59 Last Admin: 11/15/17 21:02 Dose: 1 applic Prochlorperazine Edisylate (Compazine Injection -) 2.5 mg IVPB Q3H PRN PRN Reason: NAUSEA AND/OR VOMITING Last Admin: 11/15/17 03:50 Dose: 2.5 mg Saliva Substitute (Mouthkote Solution -) 1 applic MM DAILY [facility] Last Admin: 11/15/17 18:47 Dose: 1 applic Tiotropium [place]on (Spiriva -) 1 puff IH DAILY [facility] Last Admin: 11/15/17 09:36 Dose: 1 puff Ambulatory Orders Albuterol Sulfate [Proair Hfa -] 1 - 2 inh PO PRN PRN 01/28/14 Alprazolam [Xanax] 0.25 mg PO PRN PRN 07/21/16 Anagrelide HCl [Agrylin -] 0.5 mg PO TID 11/14/16 Linaclotide [Linzess] 72 mcg PO Q2D 02/06/17 Albuterol 0.083% Nebulizer Chika [Ventolin 0.083% Nebulizer Soln -] 1 amp NEB Q4H PRN amp 06/24/17 Aspirin [ASA -] 81 mg PO DAILY tab.chew 06/24/17 Hydroxyurea [Hydrea 500Mg Capsule -] 500 mg PO MoWeFr@1000 capsule 06/24/17 Allopurinol [Zyloprim -] 200 mg PO DAILY 10/25/17 Roflumilast [Daliresp -] 500 mcg PO Q2D 10/25/17 Tiotropium [place] [Spiriva] 1 inh IH DAILY 10/25/17 traZODone HCL [Desyrel -] 100 mg PO HS 10/25/17 Oxycodone HCl/Acetaminophen [Percocet 5-325 mg Tablet] 1 - 2 tab PO Q6H PRN #20 tab MDD 8 tabs 10/31/17 Prednisone [Deltasone] 20 mg PO DAILY 11/08/[address] without contrast 11/06/17: Acute L1 vertebral body compression fracture CT abd w/o contrast-11/10/17- likely ileus- AXR- 11/10/17- showed ileus R/O bowel obstruction US-showing bladder and kidneys 11/09/17- Background chronically shrunken kidneys - abd/pelvic AXR- 11/15/17- appears obstruction is improving CT a/p with po contrast-11/15/17-Per Dr Gracia's D/W radiologist Shows some contrast in colon, most likely is same contrast that was present in colon on CT last week. Contrast in small bowel present in normal loops, also fluid without contrast present in dilated loops, with one segment of SB abnormally thickened with contrast in it, but difficult to trace clearly proximally and distally. There also may be a transition zone in SB without contrast in it, under midline in lower abdomen. Overall, distention of proximal bowel is less than last week. Small bowel findings highly suggestive of continued obstruction and abnormal loop of unclear import AXR_ 11/16/17mall bowel obstruction, some of the loops of intestine have contrast. Contrast is from 11/15/17 ASSESSMENT/PLAN: Patient is a 67 year old female with significant past medical history of COPD on 3 L and steroids , MPD on aspirin, thrombocytosis, Hepatosplenomegaly, CKD, anxiety, cardiomegaly, h/o of floaters, h/o diverticulitis s/p partial colectomy presented with severe left sided lower back pain, found to have L1 lumbar compression fracture, had Atrial tachycardia, intractable vomiting with AMS and aspiration PNA, found to have ileus SBO CTa/p 11/15/17-suggestive of continous obstruction AXR - see above Cont NPO, NO ice chips- per sx, Hx of flatus - bowel sounds more reduced NGT -on intermittent suction Continue Unasyn considering persistent SBO GI consult- apprec recs Sx consult- apprec recs- if obstruction persists- pt may require transfer to a tertiary institution considering multiple comorbidites and previous surgeries with adhesions Monitor TLC catheter put in for TPN Dry mouth Pt kept requestig ice chips Saliva substitute HTN Cont Lopressor Q6H iv hydralazine 10mg Q6H Lower back pain acute L1 vertebral body compression fracture-likely due to chronic steroid use Local pain mx preferable- continue lidocaine patch Cont to avoid opiates in setting of SBO As per Dr. Morales -BLANCA perales for comfort - pt not using it as she said it is big and uncomfortable Will need outpatient DEXA scan and workup for osteoporosis Acute metabolic encephalopathy Likely due to sepsis with aspiration PNA Pt back to baseline Cont Unasyn #Acute on chronic respiratory failure Improved, on ventimask- 40% this am Pt on 3L home oxygen with COPD Cont Solumed #Aspiration PNA Continue Unasyn- Day 6 Aspiration precautions Oxygen as needed #Tachycardia-likely atrial tachycardia Now sinus tachy Appeared like SVT but did not break with adenosine or cardizem Pt maintained on lopressor due to failed cardizem Cardiol-Dr Thomas appreciate recs Cont gambling monitor # Anxiety Cont Iv ativan 0.5 Q6H # Hyperkalemia normalized Pseudo hyperkalemia Plasma K lower Nephro on board Oncology on board #Hypernatremia Resolved # COPD: Not in exacerbation continue Oxygen supplementation Steroids dcd # CKD: Cr -improving Cr 1., - baseline of 1.5 FeUrea- prerenal picture Likely due to dehydration from vomiting Avoid nephrotoxic substances Cont Iv hydration Nephro on board # Myeloproliferative Disorder: Agrilyn on hold as pt is NPO Apprec recs-hemonc - per Dr Medrano #Chest pain Resolved Could be musculoskeletal related to retching R/O ACS Pt is currently tachycardic- could be due to anxiety or pain ativan 0.5mg Q6h prn # IBS Hold Linaclotide #hypernatremia Resolved # Prophylaxis For DVT: On Heparin 5000 IU sq TID For GI: Not indicated # FEN Monitor lytes NPO TPN # Dispo: ICU, pending return of bowel function, on conservative ma for transfer to tertiary instititution for Sx if persisting Visit type - Emergency Visit Emergency Visit: Yes ED Registration Date: 11/09/17 Care time: The patient presented to the Emergency Department on the above date and was hospitalized for further evaluation of their emergent condition. - New Patient This patient is new to me today: No - Critical Care Critical Care patient: Yes Total Critical Care Time (in minutes): 50 Critical Care Statement: The care of this patient involved high complexity decision making to prevent further life threatening deterioration of the patient 's condition and/or to evaluate & treat vital organ system(s) failure or risk of failure. - Discharge Referral Referred to [facility] No
[2017-11-16] MEDS: ALBUTEROL SO4 0.083% IH SOL 2.5 MG/3 ML VIAL.NEB. NEB SCH ×4 (07:50→20:48)
[2017-11-16] MEDS ORDERED: MAGNESIUM 1GM/D5W 100ML - 100 ML IVPB IVPB ONE (09:00)
[2017-11-16] MEDS: methylPREDNISolone NA SUCC 40 MG/1 ML VIAL IVPUSH SCH (09:13)
[2017-11-16] MEDS: LIDOCAINE 5% TOPICAL PATCH TP SCH (09:55)
--- NOTE | 2017-11-16 10:45 | PN ---
Progress Note (short form) - Note Progress Note: surgery - second opinion Pt seen and examined. no abd pain. some flatus. minimal ngt output last [address] shows psbo with abnormal segment of bowel in pelvis. abd- soft, nt, mild distension wbc persistently elevated on steroids Plan- poor candidate for surgery secondary to end stage copd. suspect ischemic event or severe localized enteritis to segment of small bowel that is slowly recoverinng. suggest tpn, prolonged if necessary. cont npo until definite return of bowel function. If patient requires surgery should be a tertiary care. cont surgical care per DR. Gracia.
[2017-11-16 10:55] LABS: ANISOCYTOSIS 1+; MACROCYTOSIS 1+; OVALOCYTE 1+; PLATELET ESTIMATE INCREASED
[2017-11-16] MEDS: TIOTROPIUM BROMIDE 18 MCG CAPSULES IH SCH (11:28)
[2017-11-16] MEDS: FAMOTIDINE 20 MG/50 ML IVPB 20 MG/50 ML MG IVPB SCH ×2 (11:28→21:36)
[2017-11-16] MEDS: LYTES/YERBA SANTA 240 ML BOTTLE MM SCH (11:39)
--- NOTE | 2017-11-16 11:41 | PN ---
Progress Note, Physician History of Present Illness: Abd distension improved, NGT inserted with decreased output. Tachycardia improved on IV Lopressor, receiving TPN, passing small flatus and stool. Surgical input appreciated. - Current Medication List Current Medications: Active Medications Acetaminophen (Ofirmev Injection -) 1,000 mg IVPB Q6H PRN PRN Reason: PAIN LEVEL 4 - 6 Last Admin: 11/16/17 10:31 Dose: 1,000 mg Albuterol Sulfate (Ventolin 0.083% Nebulizer Soln -) 1 amp NEB Q4H PRN PRN Reason: SHORT OF BREATH/WHEEZING Albuterol Sulfate (Ventolin 0.083% Nebulizer Soln -) 1 amp NEB RQID RANDI Last Admin: 11/16/17 07:50 Dose: 1 amp Chlorhexidine Gluconate (Hibiclens For Decolonization -) 1 applic TP HS RANDI Last Admin: 11/15/17 21:02 Dose: 1 applic Heparin Sodium (Porcine) (Heparin -) 5,000 unit SQ TID RANDI Last Admin: 11/16/17 05:50 Dose: 5,000 unit Hydralazine HCl (Apresoline Injection -) 10 mg IVPUSH Q6H PRN PRN Reason: HYPERTENSION Ampicillin Sodium/Sulbactam (Sodium 1.5 gm/ Sodium Chloride) 100 mls @ 200 mls/ hr IVPB Q6H-IV RANDI Last Admin: 11/16/17 09:02 Dose: 200 mls/hr Amino Acids (Clinimix -) 1,000 mls @ 83 mls/hr IV Q12H RANDI Last Admin: 11/16/17 02:00 Dose: 83 mls/hr Famotidine/Sodium Chloride (Pepcid 20 Mg Premixed Ivpb -) 20 mg in 50 mls @ 100 mls/hr IVPB BID RANDI Last Admin: 11/16/17 11:28 Dose: 100 mls/hr Lidocaine (Lidoderm Patch -) 1 patch TP DAILY [facility]ANDI Last Admin: 11/16/17 09:55 Dose: 1 patch Lorazepam (Ativan Injection -) 0.5 mg IVPUSH Q6H PRN PRN Reason: ANXIETY Last Admin: 11/15/17 22:49 Dose: 0.5 mg Methylprednisolone Sodium Succinate (Solu-Medrol -) 16 mg IVPUSH DAILY [facility] Last Admin: 11/16/17 09:13 Dose: 16 mg Metoprolol Tartrate (Lopressor Injection -) 5 mg IVPUSH Q6H-IV RANDI Last Admin: 11/16/17 09:12 Dose: 5 mg Miscellaneous (Lidoderm Patch Removal) 1 each MC DAILY@2200 [facility] Last Admin: 11/15/17 21:02 Dose: 1 each Multivitamins/Minerals (Infuvite Adult -) 10 ml IV Q24H [facility] Last Admin: 11/15/17 15:48 Dose: 10 ml Prochlorperazine Edisylate (Compazine Injection -) 2.5 mg IVPB Q3H PRN PRN Reason: NAUSEA AND/OR VOMITING Last Admin: 11/15/17 03:50 Dose: 2.5 mg Saliva Substitute (Mouthkote Solution -) 1 applic MM DAILY [facility] Last Admin: 11/16/17 11:39 Dose: 1 applic Tiotropium Isabella (Spiriva -) 1 puff IH DAILY [facility] Last Admin: 11/16/17 11:28 Dose: 1 puff - Objective Vital Signs: Vital Signs Temperature 98.3 F 11/16/17 06:00 Pulse Rate 88 11/16/17 09:12 Respiratory Rate 16 11/16/17 08:00 Blood Pressure 131/76 11/16/17 09:12 O2 Sat by Pulse Oximetry (%) 98 11/16/17 10:00 Constitutional: Yes: No Distress, Calm, Thin Cardiovascular: Yes: Regular Rate and Rhythm Respiratory: Yes: Regular, Diminished Gastrointestinal: Yes: Soft, Distention, Hypoactive Bowel Sounds Edema: No Labs: CBC, BMP 11/16/17 05:30 11/16/17 05:30 - ....Imaging Chest X-ray: Report Reviewed (Bibasilar ATX) Problem List - Problems (1) Gotnq-di-ihyopcm kidney injury Code(s): N17.9 - ACUTE KIDNEY FAILURE, UNSPECIFIED; N18.9 - CHRONIC KIDNEY DISEASE, UNSPECIFIED Qualifiers: Acute renal failure type: unspecified Chronic kidney disease stage: unspecified stage Qualified Code(s): N17.9 - Acute kidney failure, unspecified ; N18.9 - Chronic kidney disease, unspecified (2) Paroxysmal supraventricular tachycardia Code(s): I47.1 - SUPRAVENTRICULAR TACHYCARDIA (3) Acute on chronic respiratory failure with hypoxia and hypercapnia Code(s): J96.21 - ACUTE AND CHRONIC RESPIRATORY FAILURE WITH HYPOXIA; J96.22 - ACUTE AND CHRONIC RESPIRATORY FAILURE WITH HYPERCAPNIA (4) Closed fracture of lumbar vertebral body Code(s): S32.009A - UNSP FRACTURE OF UNSP LUMBAR VERTEBRA, INIT FOR CLOS FX (5) COPD (chronic obstructive pulmonary disease) Code(s): J44.9 - CHRONIC OBSTRUCTIVE PULMONARY DISEASE, UNSPECIFIED Qualifiers: COPD type: unspecified COPD Qualified Code(s): J44.9 - Chronic obstructive pulmonary disease, unspecified (6) Myeloproliferative disorder Code(s): D47.1 - CHRONIC MYELOPROLIFERATIVE DISEASE (7) Small bowel obstruction due to adhesions Code(s): K56.50 - INTESTNL ADHESIONS, UNSP TO PARTIAL VERSUS COMPLETE OBST Assessment/Plan Echo: Jun 20, 2017 Normal LV size with hyperdynamic LV fxn, tr MR, TR mod pulm HTN RVSP 47 mmHg 1. PSVT ectopic atrial tachycardia vs. sinus tachycardia, unlikely to be AV aleksandra reentrant or accessory pathway mediated tachycardia (Adenosine non responsive) 2. Acute on chronic hypercapneic, hypoxic respiratory failure, pneumonia possible aspiration 3. COPD, on chronic steroid and home O2 dependent, PNA 4. Hypertension 5. Myeloproliferative disorder 6. Acute on CKD with hyperkalemia improved 7. Partial small bowel obstruction suspect ischemic event or severe localized enteritis to segment of small bowel that is slowly recovering 8. Lumber spine compression fracture 9. Urinary retention PLAN: 1. Empiric antibiotic course as per the primary 2. Bronchodilators, IV steroids with GI protection as per the primary team 3. Continue IV Lopressor as needed, IV hydralazine hemodynamics permitting 4. NGT to intermittent low wall suction, Clinimix->TPN 5. BD, O2 to keep SpO2 >90%, await return of bowel function 6. DVT prophylaxis, bennett 7. Abd&pelvic CT shows improvement of psbo with abnormal segment of bowel in pelvis
[2017-11-16] MEDS: LORazepam 2 MG/ML SDV VIAL IVPUSH PRN ×2 (11:58→19:52)
[2017-11-16] MEDS ORDERED: LIDOCAINE HCL 2% 100 MG/5 ML DISP.SYRIN ONE (12:10)
[2017-11-16] MEDS ORDERED: LIDOCAINE HCL 1%, 10 MG/ML (20ML VIAL) ONE (12:12)
--- NOTE | 2017-11-16 13:21 | PN ---
Teaching Attending Note Name of Resident: Maynor Weiner ATTENDING PHYSICIAN STATEMENT I saw and evaluated the patient. I reviewed the resident's note and discussed the case with the resident. I agree with the resident's findings and plan as documented. SUBJECTIVE: Patient seen and examined in the ICU. D/W surgery. Would maintain on NGT and start TPN. Very high risk for surgical intervention and subsequent post-op morbidity. (+) Flatus. Intake & Output 11/13/17 11/14/17 11/15/17 11/16/17 23:59 23:59 23:59 23:59 Intake Total 1775 2484 2144 781 Output Total 2500 2550 1550 550 Balance -725 -66 594 231 Weight 119 lb 118 lb 14.4 oz 114 lb 8 oz 114 lb 5 oz Last Vital Signs Temp Pulse Resp BP Pulse Ox 98.3 F 88 16 131/76 98 11/16/17 06:00 11/16/17 09:12 11/16/17 08:00 11/16/17 09:12 11/16/17 10:00 Active Medications Acetaminophen (Ofirmev Injection -) 1,000 mg IVPB Q6H PRN PRN Reason: PAIN LEVEL 4 - 6 Last Admin: 11/16/17 10:31 Dose: 1,000 mg Albuterol Sulfate (Ventolin 0.083% Nebulizer Soln -) 1 amp NEB Q4H PRN PRN Reason: SHORT OF BREATH/WHEEZING Albuterol Sulfate (Ventolin 0.083% Nebulizer Soln -) 1 amp NEB RQID RANDI Last Admin: 11/16/17 11:20 Dose: 1 amp Chlorhexidine Gluconate (Hibiclens For Decolonization -) 1 applic TP HS RANDI Last Admin: 11/15/17 21:02 Dose: 1 applic Heparin Sodium (Porcine) (Heparin -) 5,000 unit SQ TID RANDI Last Admin: 11/16/17 05:50 Dose: 5,000 unit Hydralazine HCl (Apresoline Injection -) 10 mg IVPUSH Q6H PRN PRN Reason: HYPERTENSION Ampicillin Sodium/Sulbactam (Sodium 1.5 gm/ Sodium Chloride) 100 mls @ 200 mls/ hr IVPB Q6H-IV RANDI Last Admin: 11/16/17 09:02 Dose: 200 mls/hr Famotidine/Sodium Chloride (Pepcid 20 Mg Premixed Ivpb -) 20 mg in 50 mls @ 100 mls/hr IVPB BID COUNT INCLUDES THE [facility] Last Admin: 11/16/17 11:28 Dose: 100 mls/hr Lidocaine (Lidoderm Patch -) 1 patch TP DAILY COUNT INCLUDES THE [facility] Last Admin: 11/16/17 09:55 Dose: 1 patch Lorazepam (Ativan Injection -) 0.5 mg IVPUSH Q6H PRN PRN Reason: ANXIETY Last Admin: 11/16/17 11:58 Dose: 0.5 mg Methylprednisolone Sodium Succinate (Solu-Medrol -) 16 mg IVPUSH DAILY COUNT INCLUDES THE [facility] Last Admin: 11/16/17 09:13 Dose: 16 mg Metoprolol Tartrate (Lopressor Injection -) 5 mg IVPUSH Q6H-IV COUNT INCLUDES THE [facility] Last Admin: 11/16/17 09:12 Dose: 5 mg Miscellaneous (Lidoderm Patch Removal) 1 each MC DAILY@2200 COUNT INCLUDES THE [facility] Last Admin: 11/15/17 21:02 Dose: 1 each Prochlorperazine Edisylate (Compazine Injection -) 2.5 mg IVPB Q3H PRN PRN Reason: NAUSEA AND/OR VOMITING Last Admin: 11/15/17 03:50 Dose: 2.5 mg Saliva Substitute (Mouthkote Solution -) 1 applic MM DAILY COUNT INCLUDES THE [facility] Last Admin: 11/16/17 11:39 Dose: 1 applic Tiotropium [place] (Spiriva -) 1 puff IH DAILY COUNT INCLUDES THE [facility] Last Admin: 11/16/17 11:28 Dose: 1 puff Gen: Uncomfortable due to pain, awake and alert Heart: RRR Lung: decreased breath sounds at the bases Abd: softly distended, mild tenderness, hypoactive bowel sounds Ext: no edema Laboratory Results - last 24 hr 11/16/17 11/16/17 05:30 05:30 WBC 26.7 H RBC 4.94 Hgb 13.1 Hct 42.8 MCV 86.8 MCH 26.6 MCHC 30.6 L RDW 18.6 H Plt Count 526 H MPV 9.1 Absolute Neuts (auto) 24.6 Neutrophils % 92.1 H Neutrophils % (Manual) 89.6 H Band Neutrophils % 0.0 Lymphocytes % 3.5 L D Lymphocytes % (Manual) 3.5 L Monocytes % 2.8 L Monocytes % (Manual) 0 L D Eosinophils % 1.3 D Eosinophils % (Manual) 2.6 D Basophils % 0.3 Basophils % (Manual) 1.7 D Myelocytes % (Man) 0 D Promyelocytes % (Man) 0 Blast Cells % (Manual) 0 Nucleated RBC % 0 Metamyelocytes 0 Hypochromia 1+ Platelet Estimate Increased Polychromasia 1+ Poikilocytosis 1+ Anisocytosis 1+ Microcytosis 1+ Macrocytosis 1+ Ovalocytes 1+ Schistocytes 1+ Sodium 137 Potassium 3.9 Chloride 94 L Carbon Dioxide 40 H Anion Gap 3 L BUN 36 H Creatinine 1.0 Creat Clearance w eGFR 55.30 Random Glucose 96 Calcium 8.2 L Phosphorus 2.5 Magnesium 1.7 L Total Bilirubin 0.4 D AST 20 ALT 18 Alkaline Phosphatase 81 Total Protein 5.3 L Albumin 2.7 L ASSESSMENT AND PLAN: Small Bowel Obstruction Pneumonia Acute on Chronic Hypoxic and Hypercapneic Respiratory Failure Acute on Chronic Renal Failure COPD Myeloproliferative Disorder Lumbar Compression Fracture HTN - TLC insertion : TPN to be started - ID evaluation - NGT to constant low wall suction - monitor urine output, creatinine - monitor lytes - inhaled bronchodilators - O2 to keep SpO2 >90% - NPO until cleared by surgery - DVT prophylaxis - continue ICU monitoring Dr Briggs Critical care time spent in reviewing chart, evaluating patient and formulating plan 35 min
[2017-11-16 13:26] LABS: CHOLESTEROL 97 mg/dL (50-200); HDL CHOLESTEROL 25 mg/dL (40-60); TRIGLYCERIDES 245 mg/dL (35-160)
--- NOTE | 2017-11-16 14:51 | PN ---
Progress Note (short form) - Note Progress Note: Patient seen and examined feels she is improving , feels the urge to have a Bowel movement. remains NPO including meds Now being started on TPN Last Vital Signs Temp Pulse Resp BP Pulse Ox 98 F 86 20 196/90 96 11/13/17 08:00 11/13/17 16:13 11/13/17 16:00 11/13/17 16:13 11/13/17 10:00 Cor: RSR, No murmurs, No gallops Lungs: Clear to P&A Abd: Soft, Normal bowel sounds, No organomegaly, distended, ngt present Ext:No significant edema Abnormal Lab Results 11/13/17 11/13/17 05:30 05:30 WBC 23.5 H MCHC 30.3 L RDW 18.7 H Plt Count 564 H Neutrophils % 91.6 H Lymphocytes % 3.5 L D Monocytes % 2.7 L Carbon Dioxide 44 H Anion Gap 3 L BUN 58 H D Creatinine 1.5 H Calcium 8.3 L Active Medications Generic Name Dose Route Start Last Admin Trade Name Freq PRN Reason Stop Dose Admin Acetaminophen 1,000 mg 11/13/17 16:05 11/13/17 16:19 Ofirmev Injection - IVPB 1,000 mg Q6H PRN Administration PAIN LEVEL 4 - 6 Albuterol Sulfate 1 amp 11/11/17 07:07 Ventolin 0.083% Nebulizer Soln - NEB Q4H PRN SHORT OF BREATH/WHEEZING Chlorhexidine Gluconate 1 applic 11/11/17 07:07 11/12/17 21:21 Hibiclens For Decolonization - TP 1 applic HS RANDI Administration Heparin Sodium (Porcine) 5,000 unit 11/11/17 14:00 11/13/17 15:11 Heparin - SQ 5,000 unit TID RANDI Administration IV Flush 8 ml 11/13/17 11:23 Picc Line Flush IVPUSH PRN PRN Protocol Ampicillin Sodium/Sulbactam 100 mls @ 200 mls/hr 11/11/17 10:00 11/13/17 10: 27 Sodium 1.5 gm/ Sodium Chloride IVPB 200 mls/hr BID RANDI Administration Dextrose 1,000 mls @ 100 mls/hr 11/12/17 08:30 11/13/17 10:27 D5w - IV 100 mls/hr ASDIR RANDI Administration Lorazepam 0.5 mg 11/12/17 02:22 11/13/17 16:23 Ativan Injection - IVPUSH 0.5 mg Q6H PRN Administration ANXIETY Metoprolol Tartrate 5 mg 11/13/17 15:00 11/13/17 16:13 Lopressor Injection - IVPUSH 5 mg Q6H-IV RANDI Administration Mupirocin 1 applic 11/11/17 08:00 11/13/17 10:00 Bactroban Ointment (For Decolonization) - NS 11/16/17 07:59 1 applic BID RANDI Administration Prochlorperazine Edisylate 2.5 mg 11/11/17 07:07 11/11/17 14:09 Compazine Injection - IVPB 2.5 mg Q3H PRN Administration NAUSEA AND/OR VOMITING Saliva Substitute 1 applic 11/10/17 16:15 11/13/17 10:27 Mouthkote Solution - MM 1 applic DAILY RANDI Administration Tiotropium [place] 1 puff 11/11/17 10:00 11/13/17 10:27 Spiriva - IH 1 puff DAILY RANDI Administration A/P 67yo F with PMH COPD on home O2 3L NC, anxiety, myeloproliferative disorder, thrombophilia, diverticulosis s/p partial colectomy presented to the ER with low back pain . MPD--off ASA/hydrea due to ileus--will await to resume once she can be taken off of strict npo On heparin SC close monitoring of cbc--pt with h/o mpd and at risk for thromboses. now on TPN. ID c/s noted
--- NOTE | 2017-11-16 14:55 | PN ---
Progress Note, Physician History of Present Illness: Pt seen and examined at bedside. She complains of pain from the fracture. She denies abdominal pain. She complains of discomfort from the NG tube. - Current Medication List Current Medications: Active Medications Acetaminophen (Ofirmev Injection -) 1,000 mg IVPB Q6H PRN PRN Reason: PAIN LEVEL 4 - 6 Last Admin: 11/16/17 10:31 Dose: 1,000 mg Albuterol Sulfate (Ventolin 0.083% Nebulizer Soln -) 1 amp NEB Q4H PRN PRN Reason: SHORT OF BREATH/WHEEZING Albuterol Sulfate (Ventolin 0.083% Nebulizer Soln -) 1 amp NEB RQID RANDI Last Admin: 11/16/17 11:20 Dose: 1 amp Chlorhexidine Gluconate (Hibiclens For Decolonization -) 1 applic TP HS RANDI Last Admin: 11/15/17 21:02 Dose: 1 applic Heparin Sodium (Porcine) (Heparin -) 5,000 unit SQ TID RANDI Last Admin: 11/16/17 05:50 Dose: 5,000 unit Hydralazine HCl (Apresoline Injection -) 10 mg IVPUSH Q6H PRN PRN Reason: HYPERTENSION Ampicillin Sodium/Sulbactam (Sodium 1.5 gm/ Sodium Chloride) 100 mls @ 200 mls/ hr IVPB Q6H-IV RANDI Last Admin: 11/16/17 09:02 Dose: 200 mls/hr Famotidine/Sodium Chloride (Pepcid 20 Mg Premixed Ivpb -) 20 mg in 50 mls @ 100 mls/hr IVPB BID RANDI Last Admin: 11/16/17 11:28 Dose: 100 mls/hr Potassium Chloride 10 meq/Potassium Phosphate 30 mm/Sodium Chloride 40 meq/ Calcium Gluconate 1,600 mg/Magnesium Sulfate 1.5 gm/Folic Acid 1 mg/ Multivitamins /Minerals 10 ml/ Sterile Water / Amino Acids/ Dextrose 1,500 mls @ 62.5 mls/hr IVPB DAILY@1600 RANDI Fat Emulsion Intravenous (Intralipid -) 250 mls @ 20.833 mls/hr IV DAILY@2200 RANDI Lidocaine (Lidoderm Patch -) 1 patch TP DAILY [facility] Last Admin: 11/16/17 09:55 Dose: 1 patch Lorazepam (Ativan Injection -) 0.5 mg IVPUSH Q6H PRN PRN Reason: ANXIETY Last Admin: 11/16/17 11:58 Dose: 0.5 mg Methylprednisolone Sodium Succinate (Solu-Medrol -) 16 mg IVPUSH DAILY [facility] Last Admin: 11/16/17 09:13 Dose: 16 mg Metoprolol Tartrate (Lopressor Injection -) 5 mg IVPUSH Q6H-IV RANDI Last Admin: 11/16/17 09:12 Dose: 5 mg Miscellaneous (Lidoderm Patch Removal) 1 each MC DAILY@2200 [facility] Last Admin: 11/15/17 21:02 Dose: 1 each Prochlorperazine Edisylate (Compazine Injection -) 2.5 mg IVPB Q3H PRN PRN Reason: NAUSEA AND/OR VOMITING Last Admin: 11/15/17 03:50 Dose: 2.5 mg Saliva Substitute (Mouthkote Solution -) 1 applic MM DAILY [facility] Last Admin: 11/16/17 11:39 Dose: 1 applic Tiotropium [place] (Spiriva -) 1 puff IH DAILY [facility] Last Admin: 11/16/17 11:28 Dose: 1 puff - Objective Vital Signs: Vital Signs Temperature 98.3 F 11/16/17 06:00 Pulse Rate 88 11/16/17 09:12 Respiratory Rate 16 11/16/17 08:00 Blood Pressure 131/76 11/16/17 09:12 O2 Sat by Pulse Oximetry (%) 98 11/16/17 10:00 Constitutional: Yes: Calm Eyes: Yes: Conjunctiva Clear HENT: Yes: Atraumatic Neck: Yes: Supple Cardiovascular: Yes: S1, S2 Gastrointestinal: Yes: Soft, Other (ng tube to suction) Genitourinary: Yes: Bennett Present Edema: No Neurological: Yes: Oriented Psychiatric: Yes: Oriented Labs: CBC, BMP 11/16/17 05:30 11/16/17 05:30 Problem List - Problems (1) Ileus Code(s): K56.7 - ILEUS, UNSPECIFIED (2) Small bowel obstruction due to adhesions Code(s): K56.50 - INTESTNL ADHESIONS, UNSP TO PARTIAL VERSUS COMPLETE OBST (3) CKD (chronic kidney disease) Code(s): N18.9 - CHRONIC KIDNEY DISEASE, UNSPECIFIED Assessment/Plan Current Medications Generic Name Dose Route Start Last Admin Trade Name Freq PRN Reason Stop Dose Admin Acetaminophen 1,000 mg 11/15/17 21:33 11/16/17 10:31 Ofirmev Injection - IVPB 1,000 mg Q6H PRN Administration PAIN LEVEL 4 - 6 Albuterol Sulfate 1 amp 11/11/17 07:07 Ventolin 0.083% Nebulizer Soln - NEB Q4H PRN SHORT OF BREATH/WHEEZING Albuterol Sulfate 1 amp 11/14/17 12:00 11/16/17 11:20 Ventolin 0.083% Nebulizer Soln - NEB 1 amp RQID RANDI Administration Chlorhexidine Gluconate 1 applic 11/11/17 07:07 11/15/17 21:02 Hibiclens For Decolonization - TP 1 applic HS RANDI Administration Heparin Sodium (Porcine) 5,000 unit 11/11/17 14:00 11/16/17 05:50 Heparin - SQ 5,000 unit TID RANDI Administration Hydralazine HCl 10 mg 11/14/17 06:39 Apresoline Injection - IVPUSH Q6H PRN HYPERTENSION Ampicillin Sodium/Sulbactam 100 mls @ 200 mls/hr 11/14/17 15:00 11/16/17 09: 02 Sodium 1.5 gm/ Sodium Chloride IVPB 200 mls/hr Q6H-IV RANDI Administration Famotidine/Sodium Chloride 20 mg in 50 mls @ 100 mls/hr 11/16/17 10:00 11:28 Pepcid 20 Mg Premixed Ivpb - IVPB 100 mls/hr BID RANDI Administration Potassium Chloride 10 meq/ 1,500 mls @ 62.5 mls/hr 11/16/17 16:00 Potassium Phosphate 30 mm/ IVPB Sodium Chloride 40 meq/ DAILY@1600 RANDI Calcium Gluconate 1,600 mg/ Magnesium Sulfate 1.5 gm/ Folic Acid 1 mg/ Multivitamins /Minerals 10 ml/ Sterile Water / Amino Acids/ Dextrose Fat Emulsion Intravenous 250 mls @ 20.833 mls/hr 11/16/17 22:00 Intralipid - IV DAILY@2200 RADNI Lidocaine 1 patch 11/15/17 10:00 11/16/17 09:55 Lidoderm Patch - TP 1 patch DAILY RANDI Administration Lorazepam 0.5 mg 11/12/17 02:22 11/16/17 11:58 Ativan Injection - IVPUSH 0.5 mg Q6H PRN Administration ANXIETY Methylprednisolone Sodium Succinate 16 mg 11/14/17 15:15 11/16/17 09:13 Solu-Medrol - IVPUSH 16 mg DAILY RANDI Administration Metoprolol Tartrate 5 mg 11/13/17 15:00 11/16/17 09:12 Lopressor Injection - IVPUSH 5 mg Q6H-IV RANDI Administration Miscellaneous 1 each 11/15/17 22:00 11/15/17 21:02 Lidoderm Patch Removal MC 1 each DAILY@2200 RANDI Administration Prochlorperazine Edisylate 2.5 mg 11/11/17 07:07 11/15/17 03:50 Compazine Injection - IVPB 2.5 mg Q3H PRN Administration NAUSEA AND/OR VOMITING Saliva Substitute 1 applic 11/10/17 16:15 11/16/17 11:39 Mouthkote Solution - MM 1 applic DAILY RANDI Administration Tiotropium [place] 1 puff 11/11/17 10:00 11/16/17 11:28 Spiriva - IH 1 puff DAILY RANDI Administration Impression 1. CKD with acute component 2. hyperkalemia - likely in part pseudohyperkalemia 3. copd exacerbation 4. essential thrombocytosis 5. htn 6. anxiety 7. diverticulosis 8. hemorrhoids 9. leukocytosis 10. SBO Plan - renal function stable - pt started on TPN - monitor lytes - surgery input alice - bennett in place for retention - sodium is stable - will follow Dr Argueta
[2017-11-16 15:02] VITALS: BMI 19.5
--- NOTE | 2017-11-16 15:30 | PN ---
Teaching Attending Note Name of Resident: Margo Lewis ATTENDING PHYSICIAN STATEMENT I saw and evaluated the patient. I reviewed the resident's note and discussed the case with the resident. I agree with the resident's findings and plan as documented with exceptions below. SUBJECTIVE: Patient seen and examined. breathing improved, not passing gas, no nausea or vomiting. OBJECTIVE: Vital Signs Period Temp Pulse Resp BP Sys/[place] Pulse Ox Last 24 Hr 98 F-98.7 F 71-88 16-26 116-158/57-100 98-99 Intake & Output 11/13/17 11/14/17 11/15/17 11/16/17 23:59 23:59 23:59 23:59 Intake Total 1775 2484 2144 781 Output Total 2500 2550 1550 550 Balance -725 -66 594 231 Weight 119 lb 118 lb 14.4 oz 114 lb 8 oz 114 lb 5 oz General: lying in bed, no tachypnea noted Abdomen: soft, distended, unable to hear bowel sounds Extremities: no edema Chest: positive air entry, limited by effort Home Medications Medication Instructions Recorded Albuterol Sulfate [Proair Hfa -] 1 - 2 inh PO PRN PRN 01/28/14 Alprazolam [Xanax] 0.25 mg PO PRN PRN 07/21/16 Anagrelide HCl [Agrylin -] 0.5 mg PO TID 11/14/16 Linaclotide [Linzess] 72 mcg PO Q2D 02/06/17 Albuterol 0.083% Nebulizer [place] 1 amp NEB Q4H PRN amp 06/24/17 [Ventolin 0.083% Nebulizer Soln -] Aspirin [ASA -] 81 mg PO DAILY tab.chew 06/24/17 Hydroxyurea [Hydrea 500Mg Capsule 500 mg PO MoWeFr@1000 capsule 06/24/17 -] Allopurinol [Zyloprim -] 200 mg PO DAILY 10/25/17 Roflumilast [Daliresp -] 500 mcg PO Q2D 10/25/17 Tiotropium [place] [Spiriva] 1 inh IH DAILY 10/25/17 traZODone HCL [Desyrel -] 100 mg PO HS 10/25/17 Oxycodone HCl/Acetaminophen 1 - 2 tab PO Q6H PRN #20 tab MDD 8 10/31/17 [Percocet 5-325 mg Tablet] tabs Prednisone [Deltasone] 20 mg PO DAILY 11/08/17 Active Medications Acetaminophen (Ofirmev Injection -) 1,000 mg IVPB Q6H PRN PRN Reason: PAIN LEVEL 4 - 6 Last Admin: 11/16/17 10:31 Dose: 1,000 mg Albuterol Sulfate (Ventolin 0.083% Nebulizer Soln -) 1 amp NEB Q4H PRN PRN Reason: SHORT OF BREATH/WHEEZING Albuterol Sulfate (Ventolin 0.083% Nebulizer Soln -) 1 amp NEB RQID RANDI Last Admin: 11/16/17 15:23 Dose: Not Given Chlorhexidine Gluconate (Hibiclens For Decolonization -) 1 applic TP HS [facility] Last Admin: 11/15/17 21:02 Dose: 1 applic Heparin Sodium (Porcine) (Heparin -) 5,000 unit SQ TID RANDI Last Admin: 11/16/17 15:24 Dose: 5,000 unit Hydralazine HCl (Apresoline Injection -) 10 mg IVPUSH Q6H PRN PRN Reason: HYPERTENSION Famotidine/Sodium Chloride (Pepcid 20 Mg Premixed Ivpb -) 20 mg in 50 mls @ 100 mls/hr IVPB BID [facility] Last Admin: 11/16/17 11:28 Dose: 100 mls/hr Potassium Chloride 10 meq/Potassium Phosphate 30 mm/Sodium Chloride 40 meq/ Calcium Gluconate 1,600 mg/Magnesium Sulfate 1.5 gm/Folic Acid 1 mg/ Multivitamins /Minerals 10 ml/ Sterile Water / Amino Acids/ Dextrose 1,500 mls @ 62.5 mls/hr IVPB DAILY@1600 RANDI Fat Emulsion Intravenous (Intralipid -) 250 mls @ 20.833 mls/hr IV DAILY@2200 RANDI Piperacillin Sod/Tazobactam (Sod 3.375 gm/ Dextrose) 50 mls @ 100 mls/hr IVPB Q8H-IV [facility]; Protocol Lidocaine (Lidoderm Patch -) 1 patch TP DAILY [facility] Last Admin: 11/16/17 09:55 Dose: 1 patch Lorazepam (Ativan Injection -) 0.5 mg IVPUSH Q6H PRN PRN Reason: ANXIETY Last Admin: 11/16/17 11:58 Dose: 0.5 mg Methylprednisolone Sodium Succinate (Solu-Medrol -) 16 mg IVPUSH DAILY [facility] Last Admin: 11/16/17 09:13 Dose: 16 mg Metoprolol Tartrate (Lopressor Injection -) 5 mg IVPUSH Q6H-IV RANDI Last Admin: 11/16/17 15:25 Dose: 5 mg Miscellaneous (Lidoderm Patch Removal) 1 each MC DAILY@2200 RANDI Last Admin: 11/15/17 21:02 Dose: 1 each Prochlorperazine Edisylate (Compazine Injection -) 2.5 mg IVPB Q3H PRN PRN Reason: NAUSEA AND/OR VOMITING Last Admin: 11/15/17 03:50 Dose: 2.5 mg Saliva Substitute (Mouthkote Solution -) 1 applic MM DAILY [facility] Last Admin: 11/16/17 11:39 Dose: 1 applic Tiotropium [place] (Spiriva -) 1 puff IH DAILY [facility] Last Admin: 11/16/17 11:28 Dose: 1 puff Laboratory Results - last 24 hr 11/16/17 11/16/17 11/16/17 05:30 05:30 05:30 WBC 26.7 H RBC 4.94 Hgb 13.1 Hct 42.8 MCV 86.8 MCH 26.6 MCHC 30.6 L RDW 18.6 H Plt Count 526 H MPV 9.1 Absolute Neuts (auto) 24.6 Neutrophils % 92.1 H Neutrophils % (Manual) 89.6 H Band Neutrophils % 0.0 Lymphocytes % 3.5 L D Lymphocytes % (Manual) 3.5 L Monocytes % 2.8 L Monocytes % (Manual) 0 L D Eosinophils % 1.3 D Eosinophils % (Manual) 2.6 D Basophils % 0.3 Basophils % (Manual) 1.7 D Myelocytes % (Man) 0 D Promyelocytes % (Man) 0 Blast Cells % (Manual) 0 Nucleated RBC % 0 Metamyelocytes 0 Hypochromia 1+ Platelet Estimate Increased Polychromasia 1+ Poikilocytosis 1+ Anisocytosis 1+ Microcytosis 1+ Macrocytosis 1+ Ovalocytes 1+ Schistocytes 1+ Sodium 137 Potassium 3.9 Chloride 94 L Carbon Dioxide 40 H Anion Gap 3 L BUN 36 H Creatinine 1.0 Creat Clearance w eGFR 55.30 Random Glucose 96 Calcium 8.2 L Phosphorus 2.5 Magnesium 1.7 L Total Bilirubin 0.4 D AST 20 ALT 18 Alkaline Phosphatase 81 Total Protein 5.3 L Albumin 2.7 L Triglycerides 245 H Cholesterol 97 Total LDL Cholesterol 55 HDL Cholesterol 25 L Microbiology 11/09/17 21:00 Urine - Urine - Catheterized Urine Culture - Final NO GROWTH OBTAINED 11/07/17 17:50 Urine - Urine Clean Catch Urine Culture - Final NO GROWTH OBTAINED ASSESSMENT AND PLAN: 67yo F with PMH COPD on home O2 3L NC, anxiety, myeloproliferative disorder, thrombophilia, diverticulosis s/p partial colectomy presented to the ER with low back pain, L1 fracture, course complicated by partial SBO vs ileus and RLL PNA likely aspiration. -Partial SBO vs ileus -RLL PNA, likely aspiration from vomiting. -Acute hypoxic/hypercapneic respiratory failure, off Bipap -Atrial tachycardia, improved -RICHARD on CKD, likely dehydration -Chronic steroid/oxygen dependent COPD -Hyperkalemia, resolved -HTN -Myeloproliferative disorder with leucocytosis/thrombophilia -Anxiety Plan: Persistent NG tube output, CT A/P with some improvement. Continue NPO, NG tube, conservative management, follow up with surgery. Avoid opiods. Possible transfer to tertiary care center if fails to improve. Started on TPN today. Back pain today, resumed lidocaine patch. Avoid opioids. Patient declines TLSO brace. Outpatient DEXA scan. Continue unasyn for now with aspiration precautions. Taper off oxygen as tolerated. Continue home steroids. Cardiology input noted. Continue lopressor q6h. Hydralazine prn. Trend CBC. DVTPPX heparin Dispo pending clinical improvement. Plan discussed with patient in detail, all questions answered. Total critical care time spent in ICU 40 min.
--- NOTE | 2017-11-16 15:31 | PN ---
Progress Note (short form) - Note Progress Note: ID Consult dictated SBO ? enteritis Marked leukocytosis- multifactorial Possible asp pneumonia COPD MPS Vertebral compression fracture Blood c/s Substitute Zosyn 3.375 mg q8h
[2017-11-16] MEDS ORDERED: PIPERACILLIN/TAZOBACTAM 3.375 GM VIAL IVPB ONE ×2 (15:57→21:21)
[2017-11-16] MEDS ORDERED: DEXTROSE 5%-WATER - 50 ML IVPB ONE ×2 (15:58→21:22)
[2017-11-16] MEDS ORDERED: POTASSIUM PHOSPHATE IVPB SCH (16:00)
[2017-11-16] MEDS ORDERED: [UNRECOGNIZED DRUG - OTHER] IVPB SCH (16:00)
[2017-11-16] MEDS ORDERED: SODIUM CHLORIDE IVPB SCH (16:00)
[2017-11-16] MEDS ORDERED: POTASSIUM CHLORIDE IVPB SCH (16:00)
[2017-11-16] MEDS: PIPERACILLIN/TAZOB 3.375 GM 3.375 GM in DEXTROSE 5%-WATER - 50 ML IVPB SCH ×2 (16:02→21:35)
--- NOTE | 2017-11-16 16:02 | CONS ---
DATE OF CONSULTATION: DATE OF DICTATION: 11/16/2017 INFECTIOUS DISEASE CONSULTATION HISTORY OF PRESENT ILLNESS: The patient is a 67-year-old female who was admitted to the hospital on November 09, 2017, with worsening low back pain. She was found on imaging study to have a compression fracture of the L1 vertebra. She developed worsening abdominal pain and distention, and was found to have a small bowel obstruction. Her white blood cell count was markedly elevated. She was empirically started on Unasyn for possible aspiration pneumonia in the setting of bowel obstruction. She continues to have a markedly elevated white blood cell count. A followup CAT scan of the abdomen and pelvis showed small bowel obstruction with an abnormal loop of small bowel suggestive of enteritis. The patient states that she has not moved her bowels for approximately 1 week. However, she has been passing flatus. An NG tube is in place. She denies any fever or chills. PAST MEDICAL HISTORY: Positive for myeloproliferative disorder, COPD (on chronic steroids), diverticulosis, ulcerative colitis, chronic kidney disease, chronic low back pain. PAST SURGICAL HISTORY: Status post partial colectomy. ALLERGIES: SULFA (rash). MEDICATIONS: Albuterol, Xanax, aspirin, Hydrea, Zyloprim, Spiriva. SOCIAL HISTORY: She lives at home in the community. Former smoker. REVIEW OF SYSTEMS: Neurologic: No loss of consciousness, seizure activity, focal weakness. Cardiac: Negative for chest pain or palpitations. Respiratory: As per HPI. Gastrointestinal: As per HPI. Genitourinary: Negative for urinary tract infection. LABORATORY DATA: White count 26,000, neutrophils 92, lymphocytes 3, monocytes 3; hematocrit 42.8; platelet count 526. BUN 36, creatinine 1.0. Urinalysis with 1 white cell. PHYSICAL EXAMINATION: General: She is in moderate distress secondary to abdominal distention and NG tube. Vital Signs: Temperature 98.3, blood pressure 133/76, pulse 88 and regular, respirations 18 per minute. HEENT: Sclerae anicteric. NG tube is in place. Cardiac: Heart sounds S1, S2. Lungs: Diminished breath sounds at the bases. Abdomen: Distended, soft. No tenderness elicited. No appreciable bowel sounds. Extremities: Negative for edema. IMPRESSION: 1. Small bowel obstruction. 2. Possible enteritis. 3. Marked leukocytosis, multifactorial (possible sepsis, myeloproliferative syndrome, steroid use). 4. Possible aspiration pneumonia. 5. Chronic obstructive pulmonary disease. 6. Myeloproliferative disorder. 7. Vertebral compression fracture. PLAN: We will obtain blood cultures. Substitute Zosyn 3.375 gm IV piggyback every 8 hours. Surgical followup. We will follow. Thank you for the kind referral. SHAGUFTA ROTHMAN M.D. YURIDIA/[id number]
--- NOTE | 2017-11-16 20:27 | PN ---
Progress Note, Physician History of Present Illness: Pt seen and examined in bed in ICU. She is resting comfortably, no complaints of pain or nausea. She is passing some gas and had felt some urge for BM but not passed any stool. NGT output down further, ~200-300/day last day or two. Pt on O2 by NC. Tried to see patient earlier, but ICU team was inserting CVC for TPN, which is now started. Seen tonight, no family present. - Current Medication List Current Medications: Active Medications Acetaminophen (Ofirmev Injection -) 1,000 mg IVPB Q6H PRN PRN Reason: PAIN LEVEL 4 - 6 Last Admin: 11/16/17 19:52 Dose: 1,000 mg Albuterol Sulfate (Ventolin 0.083% Nebulizer Soln -) 1 amp NEB Q4H PRN PRN Reason: SHORT OF BREATH/WHEEZING Albuterol Sulfate (Ventolin 0.083% Nebulizer Soln -) 1 amp NEB RQID COUNTS INCLUDE 234 BEDS AT THE [facility] Last Admin: 11/16/17 15:23 Dose: Not Given Chlorhexidine Gluconate (Hibiclens For Decolonization -) 1 applic TP HS COUNTS INCLUDE 234 BEDS AT THE [facility] Last Admin: 11/15/17 21:02 Dose: 1 applic Heparin Sodium (Porcine) (Heparin -) 5,000 unit SQ TID COUNTS INCLUDE 234 BEDS AT THE [facility] Last Admin: 11/16/17 15:24 Dose: 5,000 unit Hydralazine HCl (Apresoline Injection -) 10 mg IVPUSH Q6H PRN PRN Reason: HYPERTENSION Famotidine/Sodium Chloride (Pepcid 20 Mg Premixed Ivpb -) 20 mg in 50 mls @ 100 mls/hr IVPB BID COUNTS INCLUDE 234 BEDS AT THE [facility] Last Admin: 11/16/17 11:28 Dose: 100 mls/hr Potassium Chloride 10 meq/Potassium Phosphate 30 mm/Sodium Chloride 40 meq/ Calcium Gluconate 1,600 mg/Magnesium Sulfate 1.5 gm/Folic Acid 1 mg/ Multivitamins /Minerals 10 ml/ Sterile Water / Amino Acids/ Dextrose 1,500 mls @ 62.5 mls/hr IVPB DAILY@1600 COUNTS INCLUDE 234 BEDS AT THE [facility] Last Admin: 11/16/17 16:52 Dose: 62.5 mls/hr Fat Emulsion Intravenous (Intralipid -) 250 mls @ 20.833 mls/hr IV DAILY@2200 COUNTS INCLUDE 234 BEDS AT THE [facility] Piperacillin Sod/Tazobactam (Sod 3.375 gm/ Dextrose) 50 mls @ 100 mls/hr IVPB Q8H-IV RANDI; Protocol Last Admin: 11/16/17 16:02 Dose: 100 mls/hr Lidocaine (Lidoderm Patch -) 1 patch TP DAILY COUNTS INCLUDE 234 BEDS AT THE [facility] Last Admin: 11/16/17 09:55 Dose: 1 patch Lorazepam (Ativan Injection -) 0.5 mg IVPUSH Q6H PRN PRN Reason: ANXIETY Last Admin: 11/16/17 19:52 Dose: 0.5 mg Methylprednisolone Sodium Succinate (Solu-Medrol -) 16 mg IVPUSH DAILY [facility] Last Admin: 11/16/17 09:13 Dose: 16 mg Metoprolol Tartrate (Lopressor Injection -) 5 mg IVPUSH Q6H-IV [facility]I Last Admin: 11/16/17 15:25 Dose: 5 mg Miscellaneous (Lidoderm Patch Removal) 1 each MC DAILY@2200 [facility] Last Admin: 11/15/17 21:02 Dose: 1 each Prochlorperazine Edisylate (Compazine Injection -) 2.5 mg IVPB Q3H PRN PRN Reason: NAUSEA AND/OR VOMITING Last Admin: 11/15/17 03:50 Dose: 2.5 mg Saliva Substitute (Mouthkote Solution -) 1 applic MM DAILY [facility] Last Admin: 11/16/17 11:39 Dose: 1 applic Tiotropium [place] (Spiriva -) 1 puff IH DAILY COUNTS INCLUDE 234 BEDS AT THE [facility] Last Admin: 11/16/17 11:28 Dose: 1 puff - Objective Vital Signs: Vital Signs Temperature 98.9 F 11/16/17 14:00 Pulse Rate 80 11/16/17 18:00 Respiratory Rate 22 11/16/17 18:00 Blood Pressure 148/60 11/16/17 18:00 O2 Sat by Pulse Oximetry (%) 98 11/16/17 10:00 Constitutional: Yes: Well Nourished, No Distress, Calm Eyes: Yes: Conjunctiva Clear, EOM Intact HENT: Yes: Atraumatic, Normocephalic, Other (NGT in place with light herman output) Neck: Yes: Other (LIJ CVC in place) Gastrointestinal: Yes: Soft, Distention (tympanic). No: Tenderness ...Rectal Exam: Yes: Deferred Genitourinary: Yes: Tillman Present. No: Hematuria Extremities: No: Cool, Cyanosis Integumentary: No: Jaundice, Rash Neurological: Yes: Alert, Oriented Labs: CBC, BMP 11/16/17 05:30 11/16/17 05:30 - ....Imaging X-ray: Report Reviewed, Image Reviewed (AXR from this morning seen - central dilated, gas-filled SB loops persist, possible shading of contrast visible in SB as well, some air present in R colon, but appears consistent with continued obstruction) Problem List - Problems (1) Small bowel obstruction due to adhesions Assessment/Plan: high-grade SBO likely related to adhesions; if partial, no significant change to central SB loops on imaging yet CT yesterday showed very abnormal bowel loop, thickened SB with contrast, possibly area of transition, but difficult to interpret given prior contrast in colon and difficulty tracing this loop distally continue NPO - NO MEDS via tube for now, NO ice chips NG output decreasing - continue to LCWS Tillman reinserted on TPN via CVC starting today not needing pain meds - avoid narcotics as able IV Tylenol prn holding aspirin and agrylin Spoke with Dr. Miller, who assisted in OR with Dr. Joyner last year. He saw patient this morning. Agree with TPN and continued NPO/NGT. Agree with need for tertiary center if surgery were to be needed. Discussed with Dr. Beckman of primary team today, and given current stability, would transfer now before any medical decompensation or urgent need for surgical intervention arises. Spoke briefly with Dr. Bobo of [facility], who indicated pt is likely appropriate for transfer to the acute care surgical service there. I will contact transfer center in am and initiate transfer. Spoke to patient, who understands and agrees with plan. This patient is critically ill. Time spent reviewing chart, examining patient, talking with providers and/or family and documentation is 45 minutes. Code(s): K56.50 - INTESTNL ADHESIONS, UNSP TO PARTIAL VERSUS COMPLETE OBST (2) Constipation Code(s): K59.00 - CONSTIPATION, UNSPECIFIED Qualifiers: Constipation type: unspecified constipation type Qualified Code(s): K59.00 - Constipation, unspecified (3) Irritable bowel syndrome with constipation Code(s): K58.1 - IRRITABLE BOWEL SYNDROME WITH CONSTIPATION (4) Compression fracture of lumbar vertebra Code(s): S32.000A - WEDGE COMPRESSION FRACTURE OF UNSP LUMBAR VERTEBRA, INIT Qualifiers: Encounter type: initial encounter Lumbar vertebra fracture level: L1 Fracture type: closed Qualified Code(s): S32.010A - Wedge compression fracture of first lumbar vertebra, initial encounter for closed fracture (5) [id number] kidney injury Code(s): N17.9 - ACUTE KIDNEY FAILURE, UNSPECIFIED; N18.9 - CHRONIC KIDNEY DISEASE, UNSPECIFIED Qualifiers: Acute renal failure type: unspecified Chronic kidney disease stage: unspecified stage Qualified Code(s): N17.9 - Acute kidney failure, unspecified ; N18.9 - Chronic kidney disease, unspecified (6) Paroxysmal supraventricular tachycardia Code(s): I47.1 - SUPRAVENTRICULAR TACHYCARDIA (7) Anxiety Code(s): F41.9 - ANXIETY DISORDER, UNSPECIFIED (8) COPD (chronic obstructive pulmonary disease) Code(s): J44.9 - CHRONIC OBSTRUCTIVE PULMONARY DISEASE, UNSPECIFIED Qualifiers: COPD type: unspecified COPD Qualified Code(s): J44.9 - Chronic obstructive pulmonary disease, unspecified (9) Essential thrombocytosis Code(s): D47.3 - ESSENTIAL (HEMORRHAGIC) THROMBOCYTHEMIA (10) Myeloproliferative disorder Code(s): D47.1 - CHRONIC MYELOPROLIFERATIVE DISEASE
[2017-11-16] MEDS: LIDOCAINE PATCH REMOVAL MC SCH (21:36)
[2017-11-16] MEDS: CHLORHEXIDINE GLUCONATE 4% CLEANSER FOR DECOLONIZATION TP SCH (21:36)
[2017-11-16] MEDS ORDERED: FAT EMULSIONS 250 ML IV SCH (22:00)
[2017-11-16] MEDS ORDERED: MORPHINE SULFATE 2 MG/ML VIAL IVPUSH STA (23:00)
[2017-11-16] MEDS ORDERED: morphine SULFATE 4 MG/ML VIAL ONE (23:00)
[2017-11-17] MEDS ORDERED: DEXTROSE 5%-WATER - 50 ML IVPB ONE ×2 (03:00→08:54)
[2017-11-17] MEDS ORDERED: PIPERACILLIN/TAZOBACTAM 3.375 GM VIAL IVPB ONE ×2 (03:00→08:53)
[2017-11-17] MEDS: PIPERACILLIN/TAZOB 3.375 GM 3.375 GM in DEXTROSE 5%-WATER - 50 ML IVPB SCH ×2 (03:01→09:47)
[2017-11-17] MEDS: METOPROLOL TARTRATE 5 MG/5 ML VIAL IVPUSH SCH ×3 (03:02→14:56)
[2017-11-17] MEDS: ACETAMINOPHEN 1000 MG/100 ML VIAL (NON FORMULARY) IVPB PRN (05:36)
[2017-11-17] MEDS: HEPARIN NA (PORCINE) 5,000 UNITS/ML 1ML VIAL SQ SCH ×2 (06:21→14:56)
[2017-11-17 06:36] LABS: ALBUMIN 2.6 g/dl (3.4-5.0); ANION GAP 5 (8-16); BLOOD UREA NITROGEN 36 mg/dL (7-18); CALCIUM 8.2 mg/dL (8.5-10.1); CHLORIDE 94 mmol/L (98-107); CO2 40 mmol/L (21-32); GLUCOSE,RANDOM 90 mg/dL (74-106); MAGNESIUM 2.1 mg/dL (1.8-2.4); PHOSPHOROUS 3.4 mg/dL (2.5-4.9); POTASSIUM 3.9 mmol/L (3.5-5.1); SGOT/AST 23 U/L (15-37); SGPT/ALT 20 U/L (12-78); SODIUM 139 mmol/L (136-145)
[2017-11-17 06:38] LABS: ALK PHOS 85 U/L (45-117); BILIRUBIN,TOTAL 0.4 mg/dL (0.2-1.0); TOT PROT 5.3 g/dl (6.4-8.2)
[2017-11-17 06:46] LABS: BASO % 0.4 % (0-2.0); EOS % 1.6 % (0-4.5); HEMATOCRIT 40.9 % (32.4-45.2); HEMOGLOBIN 12.6 GM/dL (10.7-15.3); LYMPH % 3.2 % (8-40); MCH 26.6 pg (25.7-33.7); MCHC 30.9 g/dl (32.0-36.0); MEAN CELL VOLUME 86.3 fl (80-96); MONO % 1.9 % (3.8-10.2); NEUT % 92.9 % (42.8-82.8); PLATELET COUNT 582 K/MM3 (134-434); RBC 4.74 M/mm3 (3.60-5.2); RDW 18.6 % (11.6-15.6); WHITE BLOOD COUNT 25.5 K/mm3 (4.0-10.0)
--- NOTE | 2017-11-17 06:46 | PN ---
Physical Exam: SUBJECTIVE: Patient seen and examined at bed side in ICU NGT drainage 600 CC since AM, , denies any chest pain abdominal pain or sob. continue conservative management pt is improving passing gases , active BS , asking for food. feel some urge to move her bowel had elevated BP started on Hydralyzin PRN central line was place for TPN OBJECTIVE: Vital Signs Period Temp Pulse Resp BP Sys/Palacios Pulse Ox Last 24 Hr 98.4 F-98.9 F 73-88 15-22 124-160/57-100 98-100 GENERAL: AAOx3 in NAD HEAD: NC/AT EYES: PERRL, EOMI, sclera anicteric, conjunctiva clear. ENT: Ears normal, nares patent, oropharynx clear without exudates, dry mucous membranes. NECK: Trachea midline, supple. LUNGS: decrease breath sound at right base , no wheezes, no crackles, no accessory muscle use. HEART: Regular rate and rhythm, S1, S2 without murmur, rub or gallop. ABDOMEN: Soft, NT , distended, active bowel sounds, no guarding, no rebound, para umbilical hernia 5x5 cm EXTREMITIES: 2+ pulses, warm, well-perfused, no edema. NEUROLOGICAL: Cranial nerves II through XII grossly intact. Normal speech, gait not observed. Laboratory Results - last 24 hr 11/16/17 11/16/17 11/17/17 05:30 05:30 05:30 Neutrophils % (Manual) 89.6 H Band Neutrophils % 0.0 Lymphocytes % (Manual) 3.5 L Monocytes % (Manual) 0 L D Eosinophils % (Manual) 2.6 D Basophils % (Manual) 1.7 D Myelocytes % (Man) 0 D Promyelocytes % (Man) 0 Blast Cells % (Manual) 0 Metamyelocytes 0 Hypochromia 1+ Platelet Estimate Increased Polychromasia 1+ Poikilocytosis 1+ Anisocytosis 1+ Microcytosis 1+ Macrocytosis 1+ Ovalocytes 1+ Schistocytes 1+ Sodium 139 Potassium 3.9 Chloride 94 L Carbon Dioxide 40 H Anion Gap 5 L BUN 36 H Creatinine 1.0 Creat Clearance w eGFR 55.30 Random Glucose 90 Calcium 8.2 L Phosphorus 3.4 Magnesium 2.1 Total Bilirubin 0.4 AST 23 ALT 20 Alkaline Phosphatase 85 Total Protein 5.3 L Albumin 2.6 L Triglycerides 245 H Cholesterol 97 Total LDL Cholesterol 55 HDL Cholesterol 25 L Active Medications Generic Name Dose Route Start Last Admin Trade Name Freq PRN Reason Stop Dose Admin Albuterol Sulfate 1 amp 11/11/17 07:07 Ventolin 0.083% Nebulizer Soln - NEB Q4H PRN SHORT OF BREATH/WHEEZING Albuterol Sulfate 1 amp 11/14/17 12:00 11/16/17 20:48 Ventolin 0.083% Nebulizer Soln - NEB 1 amp RQID [facility]I Administration Chlorhexidine Gluconate 1 applic 11/11/17 07:07 11/16/17 21:36 Hibiclens For Decolonization - TP 1 applic HS [facility]ANDI Administration Heparin Sodium (Porcine) 5,000 unit 11/11/17 14:00 11/17/17 06:21 Heparin - SQ 5,000 unit TID RANDI Administration Hydralazine HCl 10 mg 11/14/17 06:39 Apresoline Injection - IVPUSH Q6H PRN HYPERTENSION Famotidine/Sodium Chloride 20 mg in 50 mls @ 100 mls/hr 11/16/17 10:00 21:36 Pepcid 20 Mg Premixed Ivpb - IVPB 100 mls/hr BID RANDI Administration Potassium Chloride 10 meq/ 1,500 mls @ 62.5 mls/hr 11/16/17 16:00 11/16/17 16 :52 Potassium Phosphate 30 mm/ IVPB 62.5 mls/hr Sodium Chloride 40 meq/ DAILY@1600 RANDI Administration Calcium Gluconate 1,600 mg/ Magnesium Sulfate 1.5 gm/ Folic Acid 1 mg/ Multivitamins /Minerals 10 ml/ Sterile Water / Amino Acids/ Dextrose Fat Emulsion Intravenous 250 mls @ 20.833 mls/hr 11/16/17 22:00 11/16/17 21: 37 Intralipid - IV 20.833 mls/hr DAILY@2200 RANDI Administration Piperacillin Sod/Tazobactam 50 mls @ 100 mls/hr 11/16/17 16:00 11/17/17 03:01 Sod 3.375 gm/ Dextrose IVPB 100 mls/hr Q8H-IV RANDI Administration Protocol Lidocaine 1 patch 11/15/17 10:00 11/16/17 09:55 Lidoderm Patch - TP 1 patch DAILY [facility]I Administration Lorazepam 0.5 mg 11/12/17 02:22 11/16/17 19:52 Ativan Injection - IVPUSH 0.5 mg Q6H PRN Administration ANXIETY Methylprednisolone Sodium Succinate 16 mg 11/14/17 15:15 11/16/17 09:13 Solu-Medrol - IVPUSH 16 mg DAILY RANDI Administration Metoprolol Tartrate 5 mg 11/13/17 15:00 11/17/17 03:02 Lopressor Injection - IVPUSH Not Given Q6H-IV RANDI Miscellaneous 1 each 11/15/17 22:00 11/16/17 21:36 Lidoderm Patch Removal MC 1 each DAILY@2200 R[facility]I Administration Prochlorperazine Edisylate 2.5 mg 11/11/17 07:07 11/15/17 03:50 Compazine Injection - IVPB 2.5 mg Q3H PRN Administration NAUSEA AND/OR VOMITING Saliva Substitute 1 applic 11/10/17 16:15 11/16/17 11:39 Mouthkote Solution - MM 1 applic DAILY RANDI Administration Tiotropium [place] 1 puff 11/11/17 10:00 11/16/17 11:28 Spiriva - IH 1 puff DAILY RANDI Administration CBC, BMP 11/17/17 05:30 11/17/17 05:30 ASSESSMENT/PLAN: 67 yo F presented with back pain and found later to have SBO and was admitted to ICU for further evaluation # GI - Small bowel obstruction partial high grade * had 2 previous abd surgery and use of narcotics could participate to the SBO * abdomen distneded, soft , pass flatus but no BM yet. felt urge to go to bath room but No BM * CT abdomen reviewed * NPO * IV fluids * cont abx Unacyn * NGT drain 300cc since AM * monitor lytes * pain medicine Tyelnol , avoids narcotics * continue conservative management , poor surgical candidate * surgery consulted would prefer pt to be transferred to tertiary facility due to high risk and comorbidities * Ct contrast shows SBO with minimal or no improvement * Central line was placed for TPN # Pulm - Acute on chronic respiratory distress due to PNA -COPD * CXR with worsening B/L changes pulm and pleural * repeat CXR in AM * cont ABX, switch to zosyn , Dr hinkle recommend to stop abx if cx is negative * insentive spirometry * aspiration precautions * bronchodilators #Nephro -RICHARD on CKD * Improving * Cont. D5W/1/2 NS # New onset hypernatremia , resolved * TPN * repeat BMP #Neuro - Anxiety * Ativan 0.5 Q 6hr - L1 fracture * AOx3 * Lidoderm patch, TLSO * DEXA as outpatient * poor surgical candidate # Cardiovascular -HTN uncontrolled * On lopressor q6h * hydralasin 10 IV PRN in AM if needed # Heme -Myeloproliferative disorder * WBC and plt at baseline #FEN * F: D5w/1/2 NS @ 75 CC * E: monitor * N: NPO # DVT ppx * Heparin sq TID #Dispo * Cont to monitor in ICU , plan to transfer to tertiary facility [facility] * Full code * discuss with dr Christopher GARCIA , General surgery who agreed with the plan and ICU team . Total critical time 45 min Visit type - Emergency Visit Emergency Visit: Yes ED Registration Date: 11/09/17 Care time: The patient presented to the Emergency Department on the above date and was hospitalized for further evaluation of their emergent condition. - New Patient This patient is new to me today: No - Critical Care Critical Care patient: Yes Total Critical Care Time (in minutes): 45 Critical Care Statement: The care of this patient involved high complexity decision making to prevent further life threatening deterioration of the patient 's condition and/or to evaluate & treat vital organ system(s) failure or risk of failure.
--- NOTE | 2017-11-17 07:16 | PN ---
Progress Note, Physician Chief Complaint: ID Seen by Dr Cope started on Zosyn Denies abd pain Her complain referable to her spine She remains afebrile - Current Medication List Current Medications: Active Medications Albuterol Sulfate (Ventolin 0.083% Nebulizer Soln -) 1 amp NEB Q4H PRN PRN Reason: SHORT OF BREATH/WHEEZING Albuterol Sulfate (Ventolin 0.083% Nebulizer Soln -) 1 amp NEB RQID [facility] Last Admin: 11/16/17 20:48 Dose: 1 amp Chlorhexidine Gluconate (Hibiclens For Decolonization -) 1 applic TP HS [facility] Last Admin: 11/16/17 21:36 Dose: 1 applic Heparin Sodium (Porcine) (Heparin -) 5,000 unit SQ TID [facility] Last Admin: 11/17/17 06:21 Dose: 5,000 unit Hydralazine HCl (Apresoline Injection -) 10 mg IVPUSH Q6H PRN PRN Reason: HYPERTENSION Famotidine/Sodium Chloride (Pepcid 20 Mg Premixed Ivpb -) 20 mg in 50 mls @ 100 mls/hr IVPB BID [facility] Last Admin: 11/16/17 21:36 Dose: 100 mls/hr Potassium Chloride 10 meq/Potassium Phosphate 30 mm/Sodium Chloride 40 meq/ Calcium Gluconate 1,600 mg/Magnesium Sulfate 1.5 gm/Folic Acid 1 mg/ Multivitamins /Minerals 10 ml/ Sterile Water / Amino Acids/ Dextrose 1,500 mls @ 62.5 mls/hr IVPB DAILY@1600 [facility] Last Admin: 11/16/17 16:52 Dose: 62.5 mls/hr Fat Emulsion Intravenous (Intralipid -) 250 mls @ 20.833 mls/hr IV DAILY@2200 [facility] Last Admin: 11/16/17 21:37 Dose: 20.833 mls/hr Piperacillin Sod/Tazobactam (Sod 3.375 gm/ Dextrose) 50 mls @ 100 mls/hr IVPB Q8H-IV RANDI; Protocol Last Admin: 11/17/17 03:01 Dose: 100 mls/hr Lidocaine (Lidoderm Patch -) 1 patch TP DAILY [facility] Last Admin: 11/16/17 09:55 Dose: 1 patch Lorazepam (Ativan Injection -) 0.5 mg IVPUSH Q6H PRN PRN Reason: ANXIETY Last Admin: 11/16/17 19:52 Dose: 0.5 mg Methylprednisolone Sodium Succinate (Solu-Medrol -) 16 mg IVPUSH DAILY [facility] Last Admin: 11/16/17 09:13 Dose: 16 mg Metoprolol Tartrate (Lopressor Injection -) 5 mg IVPUSH Q6H-IV [facility] Last Admin: 11/17/17 03:02 Dose: Not Given Miscellaneous (Lidoderm Patch Removal) 1 each MC DAILY@2200 [facility] Last Admin: 11/16/17 21:36 Dose: 1 each Prochlorperazine Edisylate (Compazine Injection -) 2.5 mg IVPB Q3H PRN PRN Reason: NAUSEA AND/OR VOMITING Last Admin: 11/15/17 03:50 Dose: 2.5 mg Saliva Substitute (Mouthkote Solution -) 1 applic MM DAILY [facility] Last Admin: 11/16/17 11:39 Dose: 1 applic Tiotropium [place] (Spiriva -) 1 puff IH DAILY [facility] Last Admin: 11/16/17 11:28 Dose: 1 puff - Objective Vital Signs: Vital Signs Temperature 98.4 F 11/17/17 04:00 Pulse Rate 85 11/17/17 06:00 Respiratory Rate 16 11/17/17 06:00 Blood Pressure 160/65 11/17/17 06:00 O2 Sat by Pulse Oximetry (%) 100 11/16/17 22:00 Neck: Yes: Other (Central line) Cardiovascular: Yes: Regular Rate and Rhythm, S1, S2 Respiratory: Yes: WNL, Regular, CTA Bilaterally. No: Rales, Rhonchi Gastrointestinal: Yes: Normal Bowel Sounds, Soft, Distention. No: Tenderness Edema: No Labs: CBC, BMP 11/17/17 05:30 Assessment/Plan Microbiology 11/09/17 21:00 Urine - Urine - Catheterized Urine Culture - Final NO GROWTH OBTAINED 11/07/17 17:50 Urine - Urine Clean Catch Urine Culture - Final NO GROWTH OBTAINED Laboratory Tests 11/16/17 11/17/17 11/17/17 05:30 05:30 05:30 WBC 26.7 H Pending Hgb 13.1 Pending Plt Count 526 H Pending BUN 36 H Creat Clearance w eGFR 55.30 Total Bilirubin 0.4 AST 23 ALT 20 Alkaline Phosphatase 85 Assessment Small bowel obstruction NGT in place May need surgery Myeloproliferative disorder Chronic kidney disease History of inflammatory bowel disease COPD Plan See no signs of sepsis at this time or peritonitis Elevlated WBC chronic secondary to myeloproliferative disorder. I would assume her blood cultures will be negative. If so would stop her antibiotic and observe Delfino ROBERTS
[2017-11-17] MEDS: ALBUTEROL SO4 0.083% IH SOL 2.5 MG/3 ML VIAL.NEB. NEB SCH ×3 (08:13→15:46)
[2017-11-17 09:36] LABS: ANISOCYTOSIS 1+; PLATELET ESTIMATE INCREASED; TEAR DROP CELLS 1+
[2017-11-17] MEDS: LORazepam 2 MG/ML SDV VIAL IVPUSH PRN ×2 (09:36→14:57)
[2017-11-17] MEDS: LIDOCAINE 5% TOPICAL PATCH TP SCH (09:38)
[2017-11-17] MEDS: LYTES/YERBA SANTA 240 ML BOTTLE MM SCH (09:44)
[2017-11-17] MEDS: FAMOTIDINE 20 MG/50 ML IVPB 20 MG/50 ML MG IVPB SCH (09:44)
[2017-11-17] MEDS: methylPREDNISolone NA SUCC 40 MG/1 ML VIAL IVPUSH SCH (09:46)
[2017-11-17] MEDS: TIOTROPIUM BROMIDE 18 MCG CAPSULES IH SCH (09:46)
--- NOTE | 2017-11-17 10:17 | PN ---
Progress Note, Physician History of Present Illness: Pt seen and examined in bed in ICU. She is resting comfortably, still with some back pain, but no abdominal pain. She is passing some gas but not passed any stool. NGT output ~200-300/day last day or two. Pt on O2 by NC. - Current Medication List Current Medications: Active Medications Albuterol Sulfate (Ventolin 0.083% Nebulizer Soln -) 1 amp NEB Q4H PRN PRN Reason: SHORT OF BREATH/WHEEZING Albuterol Sulfate (Ventolin 0.083% Nebulizer Soln -) 1 amp NEB RQID [facility] Last Admin: 11/17/17 08:13 Dose: 1 amp Chlorhexidine Gluconate (Hibiclens For Decolonization -) 1 applic TP HS [facility] Last Admin: 11/16/17 21:36 Dose: 1 applic Heparin Sodium (Porcine) (Heparin -) 5,000 unit SQ TID [facility] Last Admin: 11/17/17 06:21 Dose: 5,000 unit Hydralazine HCl (Apresoline Injection -) 10 mg IVPUSH Q6H PRN PRN Reason: HYPERTENSION Famotidine/Sodium Chloride (Pepcid 20 Mg Premixed Ivpb -) 20 mg in 50 mls @ 100 mls/hr IVPB BID [facility] Last Admin: 11/17/17 09:44 Dose: 100 mls/hr Potassium Chloride 10 meq/Potassium Phosphate 30 mm/Sodium Chloride 40 meq/ Calcium Gluconate 1,600 mg/Magnesium Sulfate 1.5 gm/Folic Acid 1 mg/ Multivitamins /Minerals 10 ml/ Sterile Water / Amino Acids/ Dextrose 1,500 mls @ 62.5 mls/hr IVPB DAILY@1600 [facility] Last Admin: 11/16/17 16:52 Dose: 62.5 mls/hr Fat Emulsion Intravenous (Intralipid -) 250 mls @ 20.833 mls/hr IV DAILY@2200 [facility] Last Admin: 11/16/17 21:37 Dose: 20.833 mls/hr Piperacillin Sod/Tazobactam (Sod 3.375 gm/ Dextrose) 50 mls @ 100 mls/hr IVPB Q8H-IV [facility]; Protocol Last Admin: 11/17/17 09:47 Dose: 100 mls/hr Lidocaine (Lidoderm Patch -) 1 patch TP DAILY [facility] Last Admin: 11/17/17 09:38 Dose: 1 patch Lorazepam (Ativan Injection -) 0.5 mg IVPUSH Q6H PRN PRN Reason: ANXIETY Last Admin: 11/17/17 09:36 Dose: 0.5 mg Methylprednisolone Sodium Succinate (Solu-Medrol -) 16 mg IVPUSH DAILY [facility] Last Admin: 11/17/17 09:46 Dose: 16 mg Metoprolol Tartrate (Lopressor Injection -) 5 mg IVPUSH Q6H-IV [facility] Last Admin: 11/17/17 09:38 Dose: 5 mg Miscellaneous (Lidoderm Patch Removal) 1 each MC DAILY@2200 [facility] Last Admin: 11/16/17 21:36 Dose: 1 each Prochlorperazine Edisylate (Compazine Injection -) 2.5 mg IVPB Q3H PRN PRN Reason: NAUSEA AND/OR VOMITING Last Admin: 11/15/17 03:50 Dose: 2.5 mg Saliva Substitute (Mouthkote Solution -) 1 applic MM DAILY [facility] Last Admin: 11/17/17 09:44 Dose: 1 applic Tiotropium [place] (Spiriva -) 1 puff IH DAILY [facility] Last Admin: 11/17/17 09:46 Dose: 1 puff - Objective Vital Signs: Vital Signs Temperature 98.4 F 11/17/17 04:00 Pulse Rate 83 11/17/17 09:38 Respiratory Rate 26 H 11/17/17 08:00 Blood Pressure 158/78 11/17/17 09:38 O2 Sat by Pulse Oximetry (%) 98 11/17/17 09:00 Constitutional: Yes: Well Nourished, No Distress, Calm Eyes: Yes: Conjunctiva Clear, EOM Intact HENT: Yes: Atraumatic, Normocephalic, Other (NGT in place with clear/herman output) Neck: Yes: Other (LIJ CVC in place) Respiratory: Yes: Regular, On Nasal O2 Gastrointestinal: Yes: Soft, Distention (tympanic), Hypoactive Bowel Sounds ( very few if any). No: Tenderness ...Rectal Exam: Yes: Deferred Genitourinary: Yes: Tillman Present. No: Hematuria Extremities: No: Cool, Cyanosis Integumentary: No: Jaundice, Rash Neurological: Yes: Alert (but sleepy), Oriented Labs: CBC, BMP 11/17/17 05:30 11/17/17 05:30 - ....Imaging Chest X-ray: Report Reviewed Problem List - Problems (1) Small bowel obstruction due to adhesions Assessment/Plan: high-grade SBO likely related to adhesions; if partial, no significant change to central SB loops on imaging yet despite passing some gas - not resolving with conservative management CT showed very abnormal bowel loop, thickened SB with contrast, possibly area of transition, but difficult to interpret given prior contrast in colon and difficulty tracing this loop distally continue NPO - NO MEDS via tube for now, NO ice chips continue NG to LCWS Tillman with adequate output on TPN via CVC starting yesterday IV Tylenol prn, minimizing narcotics as able holding aspirin and agrylin As noted last night, would transfer to [facility]/tertiary center while stable in case of need for surgery, given significant comorbidities and known hostile abdomen. Called [facility] transfer center to initiate; spoke with surgeon telephone lines repairer. She is accepted by Dr. Christopher Pineda to an ICU bed on surgical service for SBO. Transfer center will arrange ACLS transport once bed available. Will have drafting clerk fax requested information, as their case management needs to review case before bed can be requested. Will remain available for questions and to facilitate transfer as needed. Patient is aware of plan for transfer. Please call when family is here if they would like to discuss further. This patient is critically ill. Time spent reviewing chart, examining patient, talking with providers and/or family and documentation is 45 minutes. Code(s): K56.50 - INTESTNL ADHESIONS, UNSP TO PARTIAL VERSUS COMPLETE OBST (2) Constipation Code(s): K59.00 - CONSTIPATION, UNSPECIFIED Qualifiers: Constipation type: unspecified constipation type Qualified Code(s): K59.00 - Constipation, unspecified (3) Irritable bowel syndrome with constipation Assessment/Plan: had been on Linzess for past year at home Code(s): K58.1 - IRRITABLE BOWEL SYNDROME WITH CONSTIPATION (4) Compression fracture of lumbar vertebra Assessment/Plan: per notes, pt declined TLSO brace recommended by neuro/spine Code(s): S32.000A - WEDGE COMPRESSION FRACTURE OF UNSP LUMBAR VERTEBRA, INIT Qualifiers: Encounter type: initial encounter Lumbar vertebra fracture level: L1 Fracture type: closed Qualified Code(s): S32.010A - Wedge compression fracture of first lumbar vertebra, initial encounter for closed fracture (5) [id number] kidney injury Assessment/Plan: renal on board, BUN/Cr improving continue IVF/NPO/NGT monitor lytes closely BUN/Cr down to 36/1.0 Code(s): N17.9 - ACUTE KIDNEY FAILURE, UNSPECIFIED; N18.9 - CHRONIC KIDNEY DISEASE, UNSPECIFIED Qualifiers: Acute renal failure type: unspecified Chronic kidney disease stage: unspecified stage Qualified Code(s): N17.9 - Acute kidney failure, unspecified ; N18.9 - Chronic kidney disease, unspecified (6) Paroxysmal supraventricular tachycardia Assessment/Plan: cardiology on board resolved - has not recurred Code(s): I47.1 - SUPRAVENTRICULAR TACHYCARDIA (7) Anxiety Code(s): F41.9 - ANXIETY DISORDER, UNSPECIFIED (8) COPD (chronic obstructive pulmonary disease) Assessment/Plan: on NC O2 with good sats on IV steroids avoid bipap to avoid gastric distention per ICU, low threshold for intubation pulmonary changes at bases poss from aspiration, improved on CXR encourage pulm toilet, IS Code(s): J44.9 - CHRONIC OBSTRUCTIVE PULMONARY DISEASE, UNSPECIFIED Qualifiers: COPD type: unspecified COPD Qualified Code(s): J44.9 - Chronic obstructive pulmonary disease, unspecified (9) Essential thrombocytosis Assessment/Plan: cannot continue PO meds at this time hematology following platelets stable in 500s Code(s): D47.3 - ESSENTIAL (HEMORRHAGIC) THROMBOCYTHEMIA (10) Myeloproliferative disorder Assessment/Plan: chronic leukocytosis and thrombocytosis splenomegaly cannot continue po meds at this time heme following Code(s): D47.1 - CHRONIC MYELOPROLIFERATIVE DISEASE
--- NOTE | 2017-11-17 11:00 | PN ---
Teaching Attending Note Name of Resident: Maynor Weiner ATTENDING PHYSICIAN STATEMENT I saw and evaluated the patient. I reviewed the resident's note and discussed the case with the resident. I agree with the resident's findings and plan as documented. SUBJECTIVE: Patient seen and examined in the ICU. Surgery has contacted [facility] for possible transfer. Concern that she is very high risk for decompensation and would a difficult post operative course if she required surgical intervention. No CP or SOB. (+) Flatus but no BM. CXR: mildly improved right base Intake & Output 11/14/17 11/15/17 11/16/17 11/17/17 23:59 23:59 23:59 23:59 Intake Total 2484 2144 2140 934 Output Total 2550 1550 850 700 Balance -66 594 1290 234 Weight 118 lb 14.4 oz 114 lb 8 oz 114 lb 5 oz 115 lb Last Vital Signs Temp Pulse Resp BP Pulse Ox 98.1 F 70 16 177/61 98 11/17/17 10:00 11/17/17 10:00 11/17/17 10:00 11/17/17 10:00 11/17/17 10:00 Active Medications Albuterol Sulfate (Ventolin 0.083% Nebulizer Soln -) 1 amp NEB Q4H PRN PRN Reason: SHORT OF BREATH/WHEEZING Albuterol Sulfate (Ventolin 0.083% Nebulizer Soln -) 1 amp NEB RQID [facility] Last Admin: 11/17/17 08:13 Dose: 1 amp Chlorhexidine Gluconate (Hibiclens For Decolonization -) 1 applic TP HS [facility] Last Admin: 11/16/17 21:36 Dose: 1 applic Heparin Sodium (Porcine) (Heparin -) 5,000 unit SQ TID [facility] Last Admin: 11/17/17 06:21 Dose: 5,000 unit Hydralazine HCl (Apresoline Injection -) 10 mg IVPUSH Q6H PRN PRN Reason: HYPERTENSION Famotidine/Sodium Chloride (Pepcid 20 Mg Premixed Ivpb -) 20 mg in 50 mls @ 100 mls/hr IVPB BID [facility] Last Admin: 11/17/17 09:44 Dose: 100 mls/hr Potassium Chloride 10 meq/Potassium Phosphate 30 mm/Sodium Chloride 40 meq/ Calcium Gluconate 1,600 mg/Magnesium Sulfate 1.5 gm/Folic Acid 1 mg/ Multivitamins /Minerals 10 ml/ Sterile Water / Amino Acids/ Dextrose 1,500 mls @ 62.5 mls/hr IVPB DAILY@1600 [facility] Last Admin: 11/16/17 16:52 Dose: 62.5 mls/hr Fat Emulsion Intravenous (Intralipid -) 250 mls @ 20.833 mls/hr IV DAILY@2200 [facility] Last Admin: 11/16/17 21:37 Dose: 20.833 mls/hr Piperacillin Sod/Tazobactam (Sod 3.375 gm/ Dextrose) 50 mls @ 100 mls/hr IVPB Q8H-IV [facility]; Protocol Last Admin: 11/17/17 09:47 Dose: 100 mls/hr Lidocaine (Lidoderm Patch -) 1 patch TP DAILY [facility] Last Admin: 11/17/17 09:38 Dose: 1 patch Lorazepam (Ativan Injection -) 0.5 mg IVPUSH Q6H PRN PRN Reason: ANXIETY Last Admin: 11/17/17 09:36 Dose: 0.5 mg Methylprednisolone Sodium Succinate (Solu-Medrol -) 16 mg IVPUSH DAILY [facility] Last Admin: 11/17/17 09:46 Dose: 16 mg Metoprolol Tartrate (Lopressor Injection -) 5 mg IVPUSH Q6H-IV [facility] Last Admin: 11/17/17 09:38 Dose: 5 mg Miscellaneous (Lidoderm Patch Removal) 1 each MC DAILY@2200 [facility] Last Admin: 11/16/17 21:36 Dose: 1 each Prochlorperazine Edisylate (Compazine Injection -) 2.5 mg IVPB Q3H PRN PRN Reason: NAUSEA AND/OR VOMITING Last Admin: 11/15/17 03:50 Dose: 2.5 mg Saliva Substitute (Mouthkote Solution -) 1 applic MM DAILY [facility] Last Admin: 11/17/17 09:44 Dose: 1 applic Tiotropium [place] (Spiriva -) 1 puff IH DAILY [facility] Last Admin: 11/17/17 09:46 Dose: 1 puff Gen: Slightly more comfortable today, awake and alert, mildly tachypneic at rest Heart: RRR Lung: decreased breath sounds at the bases Abd: softly distended, mild tenderness, hypoactive bowel sounds Ext: no edema Laboratory Results - last 24 hr 11/16/17 11/16/17 11/17/17 05:30 05:30 05:30 WBC 25.5 H RBC 4.74 Hgb 12.6 Hct 40.9 MCV 86.3 MCH 26.6 MCHC 30.9 L RDW 18.6 H Plt Count 582 H MPV 11.0 D Absolute Neuts (auto) 23.7 Neutrophils % 92.9 H Neutrophils % (Manual) 89.6 H 91.6 H Band Neutrophils % 0.0 2.1 Lymphocytes % 3.2 L Lymphocytes % (Manual) 3.5 L 4.2 L Monocytes % 1.9 L Monocytes % (Manual) 0 L D 0 L Eosinophils % 1.6 Eosinophils % (Manual) 2.6 D 2.1 Basophils % 0.4 Basophils % (Manual) 1.7 D 0.0 Myelocytes % (Man) 0 D 0 Promyelocytes % (Man) 0 0 Blast Cells % (Manual) 0 0 Nucleated RBC % 1 H Metamyelocytes 0 0 Hypochromia 1+ 2+ Platelet Estimate Increased Increased Platelet Comment Present Polychromasia 1+ 1+ Poikilocytosis 1+ Basophilic Stippling 2+ Anisocytosis 1+ 1+ Microcytosis 1+ 1+ Macrocytosis 1+ Tear Drop Cells 1+ Ovalocytes 1+ Schistocytes 1+ Sodium Potassium Chloride Carbon Dioxide Anion Gap BUN Creatinine Creat Clearance w eGFR Random Glucose Calcium Phosphorus Magnesium Total Bilirubin AST ALT Alkaline Phosphatase Total Protein Albumin Triglycerides 245 H Cholesterol 97 Total LDL Cholesterol 55 HDL Cholesterol 25 L 11/17/17 05:30 WBC RBC Hgb Hct MCV MCH MCHC RDW Plt Count MPV Absolute Neuts (auto) Neutrophils % Neutrophils % (Manual) Band Neutrophils % Lymphocytes % Lymphocytes % (Manual) Monocytes % Monocytes % (Manual) Eosinophils % Eosinophils % (Manual) Basophils % Basophils % (Manual) Myelocytes % (Man) Promyelocytes % (Man) Blast Cells % (Manual) Nucleated RBC % Metamyelocytes Hypochromia Platelet Estimate Platelet Comment Polychromasia Poikilocytosis Basophilic Stippling Anisocytosis Microcytosis Macrocytosis Tear Drop Cells Ovalocytes Schistocytes Sodium 139 Potassium 3.9 Chloride 94 L Carbon Dioxide 40 H Anion Gap 5 L BUN 36 H Creatinine 1.0 Creat Clearance w eGFR 55.30 Random Glucose 90 Calcium 8.2 L Phosphorus 3.4 Magnesium 2.1 Total Bilirubin 0.4 AST 23 ALT 20 Alkaline Phosphatase 85 Total Protein 5.3 L Albumin 2.6 L Triglycerides Cholesterol Total LDL Cholesterol HDL Cholesterol ASSESSMENT AND PLAN: Small Bowel Obstruction Pneumonia Acute on Chronic Hypoxic and Hypercapneic Respiratory Failure Acute on Chronic Renal Failure COPD Myeloproliferative Disorder Lumbar Compression Fracture HTN - TPN to be started - ABX per ID - NGT to constant low wall suction - monitor urine output, creatinine - monitor lytes - inhaled bronchodilators - O2 to keep SpO2 >90% - DVT prophylaxis - Arrangements being made for tertiary care transfer due to potential high surgical risk Dr Briggs Critical care time spent in reviewing chart, evaluating patient and formulating plan 35 min
--- NOTE | 2017-11-17 12:07 | PN ---
Progress Note (short form) - Note Progress Note: Patient seen and examined Resting comfortably in bed with oxygen and NG tube drainage Prior notes reviewed re: possible [facility] transfer Denies chest pains or significant SOB Denies significant pains Last Vital Signs Temp Pulse Resp BP Pulse Ox 98.1 F 70 15 155/54 98 11/17/17 10:00 11/17/17 10:05 11/17/17 10:05 11/17/17 10:05 11/17/17 10:00 HEENT: TONEY, EOM IntactNG tube, venti mask Breasts: Without masses Cor: RSR, No murmurs, No gallops Lungs: diminished breath sounds bilaterally Abd: Soft, , mild distension hypoactive bowel sounds Ext:No significant edema Skin: No rashes, Integument intact CBC, BMP 11/17/17 05:30 11/17/17 05:30 Current Medications Generic Name Dose Route Start Last Admin Trade Name Freq PRN Reason Stop Dose Admin Albuterol Sulfate 1 amp 11/11/17 07:07 Ventolin 0.083% Nebulizer Soln - NEB Q4H PRN SHORT OF BREATH/WHEEZING Albuterol Sulfate 1 amp 11/14/17 12:00 11/17/17 08:13 Ventolin 0.083% Nebulizer Soln - NEB 1 amp RQID [facility] Administration Chlorhexidine Gluconate 1 applic 11/11/17 07:07 11/16/17 21:36 Hibiclens For Decolonization - TP 1 applic HS [facility] Administration Heparin Sodium (Porcine) 5,000 unit 11/11/17 14:00 11/17/17 06:21 Heparin - SQ 5,000 unit TID [facility] Administration Hydralazine HCl 10 mg 11/14/17 06:39 Apresoline Injection - IVPUSH Q6H PRN HYPERTENSION Famotidine/Sodium Chloride 20 mg in 50 mls @ 100 mls/hr 11/16/17 10:00 09:44 Pepcid 20 Mg Premixed Ivpb - IVPB 100 mls/hr BID [facility] Administration Potassium Chloride 10 meq/ 1,500 mls @ 62.5 mls/hr 11/16/17 16:00 11/16/17 16 :52 Potassium Phosphate 30 mm/ IVPB 62.5 mls/hr Sodium Chloride 40 meq/ DAILY@1600 [facility] Administration Calcium Gluconate 1,600 mg/ Magnesium Sulfate 1.5 gm/ Folic Acid 1 mg/ Multivitamins /Minerals 10 ml/ Sterile Water / Amino Acids/ Dextrose Fat Emulsion Intravenous 250 mls @ 20.833 mls/hr 11/16/17 22:00 11/16/17 21: 37 Intralipid - IV 20.833 mls/hr DAILY@2200 [facility] Administration Piperacillin Sod/Tazobactam 50 mls @ 100 mls/hr 11/16/17 16:00 11/17/17 09:47 Sod 3.375 gm/ Dextrose IVPB 100 mls/hr Q8H-IV [facility] Administration Protocol Lidocaine 1 patch 11/15/17 10:00 11/17/17 09:38 Lidoderm Patch - TP 1 patch DAILY [facility] Administration Lorazepam 0.5 mg 11/12/17 02:22 11/17/17 09:36 Ativan Injection - IVPUSH 0.5 mg Q6H PRN Administration ANXIETY Methylprednisolone Sodium Succinate 16 mg 11/14/17 15:15 11/17/17 09:46 Solu-Medrol - IVPUSH 16 mg DAILY [facility] Administration Metoprolol Tartrate 5 mg 11/13/17 15:00 11/17/17 09:38 Lopressor Injection - IVPUSH 5 mg Q6H-IV [facility] Administration Miscellaneous 1 each 11/15/17 22:00 11/16/17 21:36 Lidoderm Patch Removal MC 1 each DAILY@2200 [facility] Administration Prochlorperazine Edisylate 2.5 mg 11/11/17 07:07 11/15/17 03:50 Compazine Injection - IVPB 2.5 mg Q3H PRN Administration NAUSEA AND/OR VOMITING Saliva Substitute 1 applic 11/10/17 16:15 11/17/17 09:44 Mouthkote Solution - MM 1 applic DAILY [facility] Administration Tiotropium [place] 1 puff 11/11/17 10:00 11/17/17 09:46 Spiriva - IH 1 puff DAILY [facility] Administration Impression: Small bowel obstruction Acute/chronic hypoxic hypercapneic respiratory failure Pneumonia COPD Lumbar compression fracture Acute/chronc kidney disease MPD Thrombocytosis secondry to MPD and reactive changes Leukocytosis secondary to MPD and reactive changes Plan : DVT prophylaxis Risk for vascular events- off ASA and meds for MPD Possible transfer to tertiary care center.
[2017-11-17 12:08] VITALS: TEMP 97.8
--- NOTE | 2017-11-17 14:41 | PN ---
Progress Note, Physician History of Present Illness: Abd distension improved, NGT inserted with decreased output. Tachycardia improved on IV Lopressor, receiving TPN, passing small flatus, but no stool. Surgical input appreciated, attempting transfer to [facility] given hostile surgical belly and tenuous pulmonary status. - Current Medication List Current Medications: Active Medications Albuterol Sulfate (Ventolin 0.083% Nebulizer Soln -) 1 amp NEB Q4H PRN PRN Reason: SHORT OF BREATH/WHEEZING Albuterol Sulfate (Ventolin 0.083% Nebulizer Soln -) 1 amp NEB RQID [facility] Last Admin: 11/17/17 11:33 Dose: 1 amp Chlorhexidine Gluconate (Hibiclens For Decolonization -) 1 applic TP HS [facility] Last Admin: 11/16/17 21:36 Dose: 1 applic Heparin Sodium (Porcine) (Heparin -) 5,000 unit SQ TID [facility] Last Admin: 11/17/17 06:21 Dose: 5,000 unit Hydralazine HCl (Apresoline Injection -) 10 mg IVPUSH Q6H PRN PRN Reason: HYPERTENSION Famotidine/Sodium Chloride (Pepcid 20 Mg Premixed Ivpb -) 20 mg in 50 mls @ 100 mls/hr IVPB BID [facility] Last Admin: 11/17/17 09:44 Dose: 100 mls/hr Potassium Chloride 10 meq/Potassium Phosphate 30 mm/Sodium Chloride 40 meq/ Calcium Gluconate 1,600 mg/Magnesium Sulfate 1.5 gm/Folic Acid 1 mg/ Multivitamins /Minerals 10 ml/ Sterile Water / Amino Acids/ Dextrose 1,500 mls @ 62.5 mls/hr IVPB DAILY@1600 [facility] Stop: 11/17/17 15:59 Last Admin: 11/16/17 16:52 Dose: 62.5 mls/hr Fat Emulsion Intravenous (Intralipid -) 250 mls @ 20.833 mls/hr IV DAILY@2200 [facility] Last Admin: 11/16/17 21:37 Dose: 20.833 mls/hr Piperacillin Sod/Tazobactam (Sod 3.375 gm/ Dextrose) 50 mls @ 100 mls/hr IVPB Q8H-IV [facility]; Protocol Last Admin: 11/17/17 09:47 Dose: 100 mls/hr Potassium Chloride 30 meq/Sodium Chloride 40 meq/Calcium Gluconate 1,600 mg/ Magnesium Sulfate 0.98 gm/Folic Acid 1 mg/ Multivitamins /Minerals 10 ml/ Sterile Water / Amino Acids/ Dextrose 1,500 mls @ 62.5 mls/hr IVPB DAILY@1600 [facility] Lidocaine (Lidoderm Patch -) 1 patch TP DAILY [facility] Last Admin: 11/17/17 09:38 Dose: 1 patch Lorazepam (Ativan Injection -) 0.5 mg IVPUSH Q6H PRN PRN Reason: ANXIETY Last Admin: 11/17/17 09:36 Dose: 0.5 mg Methylprednisolone Sodium Succinate (Solu-Medrol -) 16 mg IVPUSH DAILY [facility] Last Admin: 11/17/17 09:46 Dose: 16 mg Metoprolol Tartrate (Lopressor Injection -) 5 mg IVPUSH Q6H-IV [facility] Last Admin: 11/17/17 09:38 Dose: 5 mg Miscellaneous (Lidoderm Patch Removal) 1 each MC DAILY@2200 [facility] Last Admin: 11/16/17 21:36 Dose: 1 each Prochlorperazine Edisylate (Compazine Injection -) 2.5 mg IVPB Q3H PRN PRN Reason: NAUSEA AND/OR VOMITING Last Admin: 11/15/17 03:50 Dose: 2.5 mg Saliva Substitute (Mouthkote Solution -) 1 applic MM DAILY [facility] Last Admin: 11/17/17 09:44 Dose: 1 applic Tiotropium [place] (Spiriva -) 1 puff IH DAILY [facility] Last Admin: 11/17/17 09:46 Dose: 1 puff - Objective Vital Signs: Vital Signs Temperature 97.8 F 11/17/17 12:00 Pulse Rate 75 11/17/17 12:00 Respiratory Rate 20 11/17/17 12:00 Blood Pressure 168/77 11/17/17 12:00 O2 Sat by Pulse Oximetry (%) 98 11/17/17 10:00 Constitutional: Yes: No Distress, Calm, Thin Neck: Yes: Supple Cardiovascular: Yes: Regular Rate and Rhythm Respiratory: Yes: Regular, Diminished Gastrointestinal: Yes: Soft, Hypoactive Bowel Sounds Edema: No Labs: CBC, BMP 11/17/17 05:30 11/17/17 05:30 - ....Imaging Chest X-ray: Report Reviewed (Bibasilar pulmonary and pleural changes improving) Problem List - Problems (1) [id number] kidney injury Code(s): N17.9 - ACUTE KIDNEY FAILURE, UNSPECIFIED; N18.9 - CHRONIC KIDNEY DISEASE, UNSPECIFIED Qualifiers: Acute renal failure type: unspecified Chronic kidney disease stage: unspecified stage Qualified Code(s): N17.9 - Acute kidney failure, unspecified ; N18.9 - Chronic kidney disease, unspecified (2) Paroxysmal supraventricular tachycardia Code(s): I47.1 - SUPRAVENTRICULAR TACHYCARDIA (3) Acute on chronic respiratory failure with hypoxia and hypercapnia Code(s): J96.21 - ACUTE AND CHRONIC RESPIRATORY FAILURE WITH HYPOXIA; J96.22 - ACUTE AND CHRONIC RESPIRATORY FAILURE WITH HYPERCAPNIA (4) Closed fracture of lumbar vertebral body Code(s): S32.009A - UNSP FRACTURE OF UNSP LUMBAR VERTEBRA, INIT FOR CLOS FX (5) COPD (chronic obstructive pulmonary disease) Code(s): J44.9 - CHRONIC OBSTRUCTIVE PULMONARY DISEASE, UNSPECIFIED Qualifiers: COPD type: unspecified COPD Qualified Code(s): J44.9 - Chronic obstructive pulmonary disease, unspecified (6) Myeloproliferative disorder Code(s): D47.1 - CHRONIC MYELOPROLIFERATIVE DISEASE (7) Small bowel obstruction due to adhesions Code(s): K56.50 - INTESTNL ADHESIONS, UNSP TO PARTIAL VERSUS COMPLETE OBST Assessment/Plan Echo: Jun 20, 2017 Normal LV size with hyperdynamic LV fxn, tr MR, TR mod pulm HTN RVSP 47 mmHg 1. PSVT ectopic atrial tachycardia vs. sinus tachycardia, unlikely to be AV aleksandra reentrant or accessory pathway mediated tachycardia (Adenosine non responsive) 2. Acute on chronic hypercapneic, hypoxic respiratory failure, pneumonia possible aspiration 3. COPD, on chronic steroid and home O2 dependent, PNA 4. Hypertension 5. Myeloproliferative disorder 6. Acute on CKD with hyperkalemia improved 7. Partial small bowel obstruction suspect ischemic event or severe localized enteritis to segment of small bowel that is slowly recovering 8. Lumber spine compression fracture 9. Urinary retention PLAN: 1. Observe of empiric antibiotic per ID 2. Bronchodilators, IV steroids with GI protection as per the primary team 3. Continue IV Lopressor as needed, IV hydralazine hemodynamics permitting 4. NGT to intermittent low wall suction, TPN started 5. BD, O2 to keep SpO2 >90%, await return of bowel function 6. DVT prophylaxis, bennett 7. Arrangements being made for tertiary care transfer due to potential high surgical risk -
[2017-11-17] MEDS ORDERED: POTASSIUM CHLORIDE IVPB SCH (16:00)
[2017-11-17] MEDS ORDERED: [UNRECOGNIZED DRUG - OTHER] IVPB SCH (16:00)
[2017-11-17] MEDS ORDERED: SODIUM CHLORIDE IVPB SCH (16:00)
--- NOTE | 2017-11-17 16:04 | PN ---
Progress Note, Physician History of Present Illness: Pt seen and examined at bedside. She still has NG tube with suction. She is in the process of being transferred to [facility]. - Current Medication List Current Medications: Active Medications Albuterol Sulfate (Ventolin 0.083% Nebulizer Soln -) 1 amp NEB Q4H PRN PRN Reason: SHORT OF BREATH/WHEEZING Albuterol Sulfate (Ventolin 0.083% Nebulizer Soln -) 1 amp NEB RQID [facility] Last Admin: 11/17/17 15:46 Dose: 1 amp Chlorhexidine Gluconate (Hibiclens For Decolonization -) 1 applic TP HS [facility] Last Admin: 11/16/17 21:36 Dose: 1 applic Heparin Sodium (Porcine) (Heparin -) 5,000 unit SQ TID [facility] Last Admin: 11/17/17 14:56 Dose: 5,000 unit Hydralazine HCl (Apresoline Injection -) 10 mg IVPUSH Q6H PRN PRN Reason: HYPERTENSION Famotidine/Sodium Chloride (Pepcid 20 Mg Premixed Ivpb -) 20 mg in 50 mls @ 100 mls/hr IVPB BID [facility] Last Admin: 11/17/17 09:44 Dose: 100 mls/hr Fat Emulsion Intravenous (Intralipid -) 250 mls @ 20.833 mls/hr IV DAILY@2200 [facility] Last Admin: 11/16/17 21:37 Dose: 20.833 mls/hr Piperacillin Sod/Tazobactam (Sod 3.375 gm/ Dextrose) 50 mls @ 100 mls/hr IVPB Q8H-IV [facility]; Protocol Last Admin: 11/17/17 09:47 Dose: 100 mls/hr Potassium Chloride 30 meq/Sodium Chloride 40 meq/Calcium Gluconate 1,600 mg/ Magnesium Sulfate 0.98 gm/Folic Acid 1 mg/ Multivitamins /Minerals 10 ml/ Sterile Water / Amino Acids/ Dextrose 1,500 mls @ 62.5 mls/hr IVPB DAILY@1600 [facility] Lidocaine (Lidoderm Patch -) 1 patch TP DAILY [facility] Last Admin: 11/17/17 09:38 Dose: 1 patch Lorazepam (Ativan Injection -) 0.5 mg IVPUSH Q6H PRN PRN Reason: ANXIETY Last Admin: 11/17/17 14:57 Dose: 0.5 mg Methylprednisolone Sodium Succinate (Solu-Medrol -) 16 mg IVPUSH DAILY [facility] Last Admin: 11/17/17 09:46 Dose: 16 mg Metoprolol Tartrate (Lopressor Injection -) 5 mg IVPUSH Q6H-IV [facility] Last Admin: 11/17/17 14:56 Dose: 5 mg Miscellaneous (Lidoderm Patch Removal) 1 each MC DAILY@2200 [facility] Last Admin: 11/16/17 21:36 Dose: 1 each Prochlorperazine Edisylate (Compazine Injection -) 2.5 mg IVPB Q3H PRN PRN Reason: NAUSEA AND/OR VOMITING Last Admin: 11/15/17 03:50 Dose: 2.5 mg Saliva Substitute (Mouthkote Solution -) 1 applic MM DAILY [facility] Last Admin: 11/17/17 09:44 Dose: 1 applic Tiotropium Wingate (Spiriva -) 1 puff IH DAILY [facility] Last Admin: 11/17/17 09:46 Dose: 1 puff - Objective Vital Signs: Vital Signs Temperature 97.8 F 11/17/17 12:00 Pulse Rate 82 11/17/17 14:56 Respiratory Rate 20 11/17/17 12:00 Blood Pressure 141/48 11/17/17 14:56 O2 Sat by Pulse Oximetry (%) 98 11/17/17 10:00 Constitutional: Yes: Calm Eyes: Yes: Conjunctiva Clear HENT: Yes: Atraumatic Neck: Yes: Supple Cardiovascular: Yes: S1, S2 Respiratory: Yes: CTA Bilaterally Gastrointestinal: Yes: Other (ng tube with suction, bowel sounds positive) Musculoskeletal: Yes: WNL Edema: No Neurological: Yes: Oriented Psychiatric: Yes: Oriented Labs: CBC, BMP 11/17/17 05:30 11/17/17 05:30 Problem List - Problems (1) Ileus Code(s): K56.7 - ILEUS, UNSPECIFIED (2) Small bowel obstruction due to adhesions Code(s): K56.50 - INTESTNL ADHESIONS, UNSP TO PARTIAL VERSUS COMPLETE OBST (3) CKD (chronic kidney disease) Code(s): N18.9 - CHRONIC KIDNEY DISEASE, UNSPECIFIED Assessment/Plan Current Medications Generic Name Dose Route Start Last Admin Trade Name Freq PRN Reason Stop Dose Admin Albuterol Sulfate 1 amp 11/11/17 07:07 Ventolin 0.083% Nebulizer Soln - NEB Q4H PRN SHORT OF BREATH/WHEEZING Albuterol Sulfate 1 amp 11/14/17 12:00 11/17/17 15:46 Ventolin 0.083% Nebulizer Soln - NEB 1 amp RQID [facility]I Administration Chlorhexidine Gluconate 1 applic 11/11/17 07:07 11/16/17 21:36 Hibiclens For Decolonization - TP 1 applic HS [facility] Administration Heparin Sodium (Porcine) 5,000 unit 11/11/17 14:00 11/17/17 14:56 Heparin - SQ 5,000 unit TID [facility]I Administration Hydralazine HCl 10 mg 11/14/17 06:39 Apresoline Injection - IVPUSH Q6H PRN HYPERTENSION Famotidine/Sodium Chloride 20 mg in 50 mls @ 100 mls/hr 11/16/17 10:00 09:44 Pepcid 20 Mg Premixed Ivpb - IVPB 100 mls/hr BID [facility] Administration Fat Emulsion Intravenous 250 mls @ 20.833 mls/hr 11/16/17 22:00 11/16/17 21: 37 Intralipid - IV 20.833 mls/hr DAILY@2200 [facility] Administration Piperacillin Sod/Tazobactam 50 mls @ 100 mls/hr 11/16/17 16:00 11/17/17 09:47 Sod 3.375 gm/ Dextrose IVPB 100 mls/hr Q8H-IV [facility]I Administration Protocol Potassium Chloride 30 meq/ 1,500 mls @ 62.5 mls/hr 11/17/17 16:00 Sodium Chloride 40 meq/ IVPB Calcium Gluconate 1,600 mg/ DAILY@1600 [facility] Magnesium Sulfate 0.98 gm/ Folic Acid 1 mg/ Multivitamins /Minerals 10 ml/ Sterile Water / Amino Acids/ Dextrose Lidocaine 1 patch 11/15/17 10:00 11/17/17 09:38 Lidoderm Patch - TP 1 patch DAILY [facility] Administration Lorazepam 0.5 mg 11/12/17 02:22 11/17/17 14:57 Ativan Injection - IVPUSH 0.5 mg Q6H PRN Administration ANXIETY Methylprednisolone Sodium Succinate 16 mg 11/14/17 15:15 11/17/17 09:46 Solu-Medrol - IVPUSH 16 mg DAILY [facility] Administration Metoprolol Tartrate 5 mg 11/13/17 15:00 11/17/17 14:56 Lopressor Injection - IVPUSH 5 mg Q6H-IV [facility] Administration Miscellaneous 1 each 11/15/17 22:00 11/16/17 21:36 Lidoderm Patch Removal MC 1 each DAILY@2200 [facility] Administration Prochlorperazine Edisylate 2.5 mg 11/11/17 07:07 11/15/17 03:50 Compazine Injection - IVPB 2.5 mg Q3H PRN Administration NAUSEA AND/OR VOMITING Saliva Substitute 1 applic 11/10/17 16:15 11/17/17 09:44 Mouthkote Solution - MM 1 applic DAILY [facility] Administration Tiotropium [place] 1 puff 11/11/17 10:00 11/17/17 09:46 Spiriva - IH 1 puff DAILY [facility] Administration Impression 1. CKD with acute component 2. hyperkalemia - likely in part pseudohyperkalemia 3. copd exacerbation 4. essential thrombocytosis 5. htn 6. anxiety 7. diverticulosis 8. hemorrhoids 9. leukocytosis 10. SBO Plan - cont to monitor renal function - pt on TPN - surgery input appreciated, pt for possible transfer to [facility] - pt started on TPN - bennett in place for retention - sodium is stable - will follow Dr Argueta
[2017-11-17 16:32] VITALS: BP 156/56; PULSE 70
--- NOTE | 2017-11-17 17:33 | DS ---
Physical Exam: SUBJECTIVE: Patient seen and examined. Pt noted to be sundowning. Pulled out NGT overnight. Received a dose of morphine. Being worked up for transfer to [facility] since no significant improvement with conservative mx for SBO. No difficulty breathing, no chest pain or fevers. No bowel movement. Still passing flatus. Still has some back pain. OBJECTIVE: Vital Signs Period Temp Pulse Resp BP Sys/Palacios Pulse Ox Last 24 Hr 97.8 F-98.5 F 70-89 15-26 125-177/48-96 98-100 Vital Signs Temp 97.8 F 11/17/17 12:00 Pulse 70 11/17/17 16:00 Resp 20 11/17/17 16:00 BP 156/56 11/17/17 16:00 Pulse Ox 98 11/17/17 10:00 Intake & Output 11/16/17 11/17/17 11/17/17 23:59 11:59 23:59 Intake Total 1359 934 600 Output Total 300 700 750 Balance 1059 234 -150 Weight 52.163 kg Intake: IV 1059 434 Clinimix 747 TPN 312 434 IVPB 300 500 100 TPN/PPN 500 Output: Gastric Drainage 300 200 250 Urine 500 500 Tillman 500 500 Other: Voiding Method Indwelling Catheter Indwelling Catheter Bowel Movement No No No Body Mass Index (BMI) 19.5 Weight Measurement Method Built in [facility] PHYSICAL EXAM GENERAL: The patient is awake, alert, and oriented, NC-3L ENT: NGT in place LUNGS: Reduced respiratory effort, no wheezes, no crackles HEART: Regular rate and rhythm, S1, S2 without murmur. ABDOMEN: Soft, non tender, mildly distended, hypoactive bowel sounds, no guarding, no rebound EXTREMITIES: 2+ pulses, warm, well-perfused, no edema. NEUROLOGICAL: Alert and oriented. No facial droop. No lateralizing signs. Normal speech, gait not observed. CBC, BMP 11/17/17 05:30 11/17/17 05:30 LABS Laboratory Results - last 24 hr 11/17/17 11/17/17 05:30 05:30 WBC 25.5 H RBC 4.74 Hgb 12.6 Hct 40.9 MCV 86.3 MCH 26.6 MCHC 30.9 L RDW 18.6 H Plt Count 582 H MPV 11.0 D Absolute Neuts (auto) 23.7 Neutrophils % 92.9 H Neutrophils % (Manual) 91.6 H Band Neutrophils % 2.1 Lymphocytes % 3.2 L Lymphocytes % (Manual) 4.2 L Monocytes % 1.9 L Monocytes % (Manual) 0 L Eosinophils % 1.6 Eosinophils % (Manual) 2.1 Basophils % 0.4 Basophils % (Manual) 0.0 Myelocytes % (Man) 0 Promyelocytes % (Man) 0 Blast Cells % (Manual) 0 Nucleated RBC % 1 H Metamyelocytes 0 Hypochromia 2+ Platelet Estimate Increased Platelet Comment Present Polychromasia 1+ Basophilic Stippling 2+ Anisocytosis 1+ Microcytosis 1+ Tear Drop Cells 1+ Sodium 139 Potassium 3.9 Chloride 94 L Carbon Dioxide 40 H Anion Gap 5 L BUN 36 H Creatinine 1.0 Creat Clearance w eGFR 55.30 Random Glucose 90 Calcium 8.2 L Phosphorus 3.4 Magnesium 2.1 Total Bilirubin 0.4 AST 23 ALT 20 Alkaline Phosphatase 85 Total Protein 5.3 L Albumin 2.6 L Current Medications Acetaminophen (Ofirmev Injection -) 1,000 mg IVPB Q6H PRN PRN Reason: PAIN LEVEL 4 - 6 Last Admin: 11/16/17 03:11 Dose: 1,000 mg Albuterol Sulfate (Ventolin 0.083% Nebulizer Soln -) 1 amp NEB Q4H PRN PRN Reason: SHORT OF BREATH/WHEEZING Albuterol Sulfate (Ventolin 0.083% Nebulizer Soln -) 1 amp NEB RQID [facility] Last Admin: 11/15/17 20:22 Dose: Not Given Chlorhexidine Gluconate (Hibiclens For Decolonization -) 1 applic TP HS [facility] Last Admin: 11/15/17 21:02 Dose: 1 applic Heparin Sodium (Porcine) (Heparin -) 5,000 unit SQ TID [facility] Last Admin: 11/16/17 05:50 Dose: 5,000 unit Hydralazine HCl (Apresoline Injection -) 10 mg IVPUSH Q6H PRN PRN Reason: HYPERTENSION Ampicillin Sodium/Sulbactam (Sodium 1.5 gm/ Sodium Chloride) 100 mls @ 200 mls/ hr IVPB Q6H-IV [facility] Last Admin: 11/16/17 03:10 Dose: 200 mls/hr Amino Acids (Clinimix -) 1,000 mls @ 83 mls/hr IV Q12H [facility] Last Admin: 11/16/17 02:00 Dose: 83 mls/hr Lidocaine (Lidoderm Patch -) 1 patch TP DAILY [facility] Last Admin: 11/15/17 09:41 Dose: 1 patch Lorazepam (Ativan Injection -) 0.5 mg IVPUSH Q6H PRN PRN Reason: ANXIETY Last Admin: 11/15/17 22:49 Dose: 0.5 mg Methylprednisolone Sodium Succinate (Solu-Medrol -) 16 mg IVPUSH DAILY [facility] Last Admin: 11/15/17 09:41 Dose: 16 mg Metoprolol Tartrate (Lopressor Injection -) 5 mg IVPUSH Q6H-IV [facility] Last Admin: 11/16/17 03:10 Dose: 5 mg Miscellaneous (Lidoderm Patch Removal) 1 each MC DAILY@2200 [facility] Last Admin: 11/15/17 21:02 Dose: 1 each Multivitamins/Minerals (Infuvite Adult -) 10 ml IV Q24H [facility] Last Admin: 11/15/17 15:48 Dose: 10 ml Mupirocin (Bactroban Ointment (For Decolonization) -) 1 applic NS BID [facility] Stop: 11/16/17 07:59 Last Admin: 11/15/17 21:02 Dose: 1 applic Prochlorperazine Edisylate (Compazine Injection -) 2.5 mg IVPB Q3H PRN PRN Reason: NAUSEA AND/OR VOMITING Last Admin: 11/15/17 03:50 Dose: 2.5 mg Saliva Substitute (Mouthkote Solution -) 1 applic MM DAILY [facility] Last Admin: 11/15/17 18:47 Dose: 1 applic Tiotropium Friendship (Spiriva -) 1 puff IH DAILY [facility] Last Admin: 11/15/17 09:36 Dose: 1 puff Ambulatory Orders Albuterol Sulfate [Proair Hfa -] 1 - 2 inh PO PRN PRN 01/28/14 Alprazolam [Xanax] 0.25 mg PO PRN PRN 07/21/16 Anagrelide HCl [Agrylin -] 0.5 mg PO TID 11/14/16 Linaclotide [Linzess] 72 mcg PO Q2D 02/06/17 Albuterol 0.083% Nebulizer Chika [Ventolin 0.083% Nebulizer Soln -] 1 amp NEB Q4H PRN amp 06/24/17 Aspirin [ASA -] 81 mg PO DAILY tab.chew 06/24/17 Hydroxyurea [Hydrea 500Mg Capsule -] 500 mg PO MoWeFr@1000 capsule 06/24/17 Allopurinol [Zyloprim -] 200 mg PO DAILY 10/25/17 Roflumilast [Daliresp -] 500 mcg PO Q2D 10/25/17 Tiotropium Friendship [Spiriva] 1 inh IH DAILY 10/25/17 traZODone HCL [Desyrel -] 100 mg PO HS 10/25/17 Oxycodone HCl/Acetaminophen [Percocet 5-325 mg Tablet] 1 - 2 tab PO Q6H PRN #20 tab MDD 8 tabs 10/31/17 Prednisone [Deltasone] 20 mg PO DAILY 11/08/17 Imaging: Lumbar spine CT without contrast 11/06/17: Acute L1 vertebral body compression fracture CT abd w/o contrast-11/10/17- likely ileus- AXR- 11/10/17- showed ileus R/O bowel obstruction US-showing bladder and kidneys 11/09/17- Background chronically shrunken kidneys - abd/pelvic AXR- 11/15/17- appears obstruction is improving CT a/p with po contrast-11/15/17-Per Dr Gracia's D/W radiologist Shows some contrast in colon, most likely is same contrast that was present in colon on CT last week. Contrast in small bowel present in normal loops, also fluid without contrast present in dilated loops, with one segment of SB abnormally thickened with contrast in it, but difficult to trace clearly proximally and distally. There also may be a transition zone in SB without contrast in it, under midline in lower abdomen. Overall, distention of proximal bowel is less than last week. Small bowel findings highly suggestive of continued obstruction and abnormal loop of unclear import AXR_ 11/16/17mall bowel obstruction, some of the loops of intestine have contrast. Contrast is from 11/15/17 HOSPITAL COURSE: Date of Admission:11/09/17 Date of Discharge: 11/17/17 Patient is a 67 year old female with significant past medical history of COPD on 3 L and steroids , MPD on aspirin, thrombocytosis, Hepatosplenomegaly, CKD, anxiety, cardiomegaly, h/o of floaters, h/o diverticulitis s/p partial colectomy presented with severe left sided lower back pain, found to have L1 lumbar compression fracture, had Atrial tachycardia, intractable vomiting with AMS and aspiration PNA, found to have SBO and on NGT with intermittent suction SBO CT-a/p 11/15/17-suggestive of continous obstruction Cont NPO, NO ice chips- per sx, minimize opiates Passing flatus, with hypoactive bowel sounds NGT -on intermittent suction Pt on zosyn- Per ID GI consult- apprec recs Monitor TPN Per Dr Gracia-Pt is being transferred to [facility]/tertiary center while stable in case of need for surgery, given significant comorbidities and known hostile abdomen. Pt accepted by Dr. Christopher Pineda to an ICU bed on surgical service for SBO. ACLS transport with availability of bed Dry mouth Pt kept requestig ice chips Saliva substitute HTN Cont Lopressor Q6H iv hydralazine 10mg Q6H Lower back pain acute L1 vertebral body compression fracture-likely due to chronic steroid use Local pain mx preferable- continue lidocaine patch Cont to avoid opiates in setting of SBO As [facility] - pt not using it as she said it is big and uncomfortable Will need outpatient DEXA scan and workup for osteoporosis Received iv 2mg morphine last night Acute metabolic encephalopathy Likely due to sepsis with aspiration PNA Pt back to baseline Cont Unasyn #Acute on chronic respiratory failure Improved, on ventimask- 40% this am Pt on 3L home oxygen with COPD Cont Solumed #Aspiration PNA Started on zosyn Aspiration precautions Oxygen as needed #Tachycardia-likely atrial tachycardia Now sinus tachy Appeared like SVT but did not break with adenosine or cardizem Pt maintained on lopressor due to failed cardizem Cardiol-Dr Thomas appreciate recs Cont traffic monitor specialist # Anxiety Cont Iv ativan 0.5 Q6H # Hyperkalemia normalized Pseudo hyperkalemia Plasma K lower Nephro on board Oncology on board #Hypernatremia Resolved # COPD: Not in exacerbation continue Oxygen supplementation Steroids dcd # CKD: Cr -improved Cr 1.0, - baseline of 1.5 FeUrea- prerenal picture Likely due to dehydration from vomiting Avoid nephrotoxic substances Cont Iv hydration Nephro on board # Myeloproliferative Disorder: ASA and Agrilyn on hold as pt is NPO Apprec recs-hemonc - per Dr Medrano #Chest pain Resolved Could be musculoskeletal related to retching R/O ACS ativan 0.5mg Q6h prn # IBS Hold Linaclotide #hypernatremia Resolved # Prophylaxis For DVT: On Heparin 5000 IU sq TID For GI: Not indicated # FEN Monitor lytes NPO TPN #Dispo: Pt was transferred to [facility]- Accepted by Surgeon aboriginal education worker coordinator (Dr. Chrsitopher Pineda) to ICU Minutes to complete discharge: 50 Discharge Summary Reason For Visit: CLOSED FX OF BODY OF LUMBAR VERTEBRA Current Active Problems Acute on chronic respiratory failure with hypoxia and hypercapnia (Acute) Zigtn-av-fuctbou kidney injury (Acute) Closed fracture of lumbar vertebral body (Acute) Compression fracture of lumbar vertebra (Acute) Constipation (Acute) Ileus (Acute) Irritable bowel syndrome with constipation (Acute) Paroxysmal supraventricular tachycardia (Acute) Sinus tachycardia (Acute) Small bowel obstruction due to adhesions (Acute) COPD (chronic obstructive pulmonary disease) with acute bronchitis (Chronic) SOB (shortness of breath) (Chronic) Condition: Guarded - Instructions Diet, Activity, Other Instructions: You are being transferred to a tertiary center for higher level of care Your home meds prior to admission were as follows: Medication Instructions Recorded Albuterol Sulfate [Proair Hfa -] 1 - 2 inh PO PRN PRN 01/28/14 Alprazolam [Xanax] 0.25 mg PO PRN PRN 07/21/16 Anagrelide HCl [Agrylin -] 0.5 mg PO TID 11/14/16 Linaclotide [Linzess] 72 mcg PO Q2D 02/06/17 Albuterol 0.083% Nebulizer Chika 1 amp NEB Q4H PRN amp 06/24/17 [Ventolin 0.083% Nebulizer Soln -] Aspirin [ASA -] 81 mg PO DAILY tab.chew 06/24/17 Hydroxyurea [Hydrea 500Mg Capsule 500 mg PO MoWeFr@1000 capsule 06/24/17 -] Allopurinol [Zyloprim -] 200 mg PO DAILY 10/25/17 Roflumilast [Daliresp -] 500 mcg PO Q2D 10/25/17 Tiotropium Friendship [Spiriva] 1 inh IH DAILY 10/25/17 traZODone HCL [Desyrel -] 100 mg PO HS 10/25/17 Oxycodone HCl/Acetaminophen 1 - 2 tab PO Q6H PRN #20 tab MDD 8 10/31/17 [Percocet 5-325 mg Tablet] tabs Prednisone [Deltasone] 20 mg PO DAILY 11/08/17 Your oral medications are on held. Continue with TPN through the central line that has been placed. Referrals: Piero Ortiz MD [Primary Care Provider] - 1 Week Christopher Thomas MD [Staff Physician] - Disposition: TRANSFER ACUTE CARE/OTHER HOSP - Home Medications Comprehensive Discharge Medication List: Ambulatory Orders Albuterol Sulfate [Proair Hfa -] 1 - 2 inh PO PRN PRN 01/28/14 Alprazolam [Xanax] 0.25 mg PO PRN PRN 07/21/16 Anagrelide HCl [Agrylin -] 0.5 mg PO TID 11/14/16 Linaclotide [Linzess] 72 mcg PO Q2D 02/06/17 Albuterol 0.083% Nebulizer Chika [Ventolin 0.083% Nebulizer Soln -] 1 amp NEB Q4H PRN amp 06/24/17 Aspirin [ASA -] 81 mg PO DAILY tab.chew 06/24/17 Hydroxyurea [Hydrea 500Mg Capsule -] 500 mg PO MoWeFr@1000 capsule 06/24/17 Allopurinol [Zyloprim -] 200 mg PO DAILY 10/25/17 Roflumilast [Daliresp -] 500 mcg PO Q2D 10/25/17 Tiotropium Friendship [Spiriva] 1 inh IH DAILY 10/25/17 traZODone HCL [Desyrel -] 100 mg PO HS 10/25/17 Oxycodone HCl/Acetaminophen [Percocet 5-325 mg Tablet] 1 - 2 tab PO Q6H PRN #20 tab MDD 8 tabs 10/31/17 Prednisone [Deltasone] 20 mg PO DAILY 11/08/17 Acetaminophen Injection [Ofirmev Injection -] 1,000 mg IVPB Q6H PRN vial Chlorhexidine Gluconate [Hibiclens For Decolonization -] 1 applic TP HS bottle 11/17/17 Heparin - 5,000 unit SQ TID vial 11/17/17 LORazepam [Ativan Injection -] 0.5 mg IVPUSH Q6H PRN vial MDD 2 11/17/17 Lidocaine 5% Patch [Lidoderm -] 1 patch TP DAILY patch 11/17/17 Lidocaine Patch Removal [Lidoderm Patch Removal] 1 each MC DAILY@2200 each Lytes/Yerba Asmita [Mouthkote Solution -] 1 applic MM DAILY applic 11/17/17 Methylprednisolone Na Succ [Solu-Medrol -] 16 mg IVPUSH DAILY vial 11/17/17 Metoprolol Tartrate Injection [Lopressor Injection -] 5 mg IVPUSH Q6H-IV vial 11/17/17 hydrALAZINE INJECTION [Apresoline Injection -] 10 mg IVPUSH Q6H PRN vial This patient is new to me today: No Emergency Visit: Yes ED Registration Date: 11/09/17 Care time: The patient presented to the Emergency Department on the above date and was hospitalized for further evaluation of their emergent condition. Critical Care patient: Yes Total Critical Care Time (in minutes): 50 Critical Care Statement: The care of this patient involved high complexity decision making to prevent further life threatening deterioration of the patient 's condition and/or to evaluate & treat vital organ system(s) failure or risk of failure. - Discharge Referral Referred to [facility] Med P.C.: No
--- NOTE | 2017-11-17 17:44 | PN ---
Teaching Attending Note Name of Resident: Margo Lewis ATTENDING PHYSICIAN STATEMENT I saw and evaluated the patient. I reviewed the resident's note and discussed the case with the resident. I agree with the resident's findings and plan as documented with exceptions below. SUBJECTIVE: patient seen and examined. breathing unchanged, denies passing gas or BM. no nausea currently, looks weak OBJECTIVE: Vital Signs Period Temp Pulse Resp BP Sys/Palacios Pulse Ox Last 24 Hr 97.8 F-98.5 F 70-89 15-26 125-177/48-96 98-100 Intake & Output 11/14/17 11/15/17 11/16/17 11/17/17 23:59 23:59 23:59 23:59 Intake Total 2484 2144 2140 1534 Output Total 2550 8769 211 7543 Balance -66 594 1290 84 Weight 118 lb 14.4 oz 114 lb 8 oz 114 lb 5 oz 115 lb General: lethargic in bed, mild tachypnea Chest: decreased effort, positive air entry Abdomen:soft, distended, unable to appreciate bowel sounds Extremities: no edema Laboratory Results - last 24 hr 11/17/17 11/17/17 05:30 05:30 WBC 25.5 H RBC 4.74 Hgb 12.6 Hct 40.9 MCV 86.3 MCH 26.6 MCHC 30.9 L RDW 18.6 H Plt Count 582 H MPV 11.0 D Absolute Neuts (auto) 23.7 Neutrophils % 92.9 H Neutrophils % (Manual) 91.6 H Band Neutrophils % 2.1 Lymphocytes % 3.2 L Lymphocytes % (Manual) 4.2 L Monocytes % 1.9 L Monocytes % (Manual) 0 L Eosinophils % 1.6 Eosinophils % (Manual) 2.1 Basophils % 0.4 Basophils % (Manual) 0.0 Myelocytes % (Man) 0 Promyelocytes % (Man) 0 Blast Cells % (Manual) 0 Nucleated RBC % 1 H Metamyelocytes 0 Hypochromia 2+ Platelet Estimate Increased Platelet Comment Present Polychromasia 1+ Basophilic Stippling 2+ Anisocytosis 1+ Microcytosis 1+ Tear Drop Cells 1+ Sodium 139 Potassium 3.9 Chloride 94 L Carbon Dioxide 40 H Anion Gap 5 L BUN 36 H Creatinine 1.0 Creat Clearance w eGFR 55.30 Random Glucose 90 Calcium 8.2 L Phosphorus 3.4 Magnesium 2.1 Total Bilirubin 0.4 AST 23 ALT 20 Alkaline Phosphatase 85 Total Protein 5.3 L Albumin 2.6 L Microbiology 11/09/17 21:00 Urine - Urine - Catheterized Urine Culture - Final NO GROWTH OBTAINED 11/07/17 17:50 Urine - Urine Clean Catch Urine Culture - Final NO GROWTH OBTAINED ASSESSMENT AND PLAN: 67yo F with PMH COPD on home O2 3L NC, anxiety, myeloproliferative disorder, thrombophilia, diverticulosis s/p partial colectomy presented to the ER with low back pain, L1 fracture, course complicated by partial SBO vs ileus and RLL PNA likely aspiration. -Partial SBO vs ileus -RLL PNA, likely aspiration from vomiting. -Acute hypoxic/hypercapneic respiratory failure, off Bipap -Atrial tachycardia, improved -RICHARD on CKD, likely dehydration -Chronic steroid/oxygen dependent COPD -Hyperkalemia, resolved -HTN -Myeloproliferative disorder with leucocytosis/thrombophilia -Anxiety Plan: Overall unchanged,some improvement, but continued NG drainage. ID input noted, zosyn. Started on TPN via Central line. IV steroids equivalent to home dose. Nebs standing and prn. avoid bipap in case of worsening. Low threshold for intubation. Cardiology input noted. Discussed with Dr. Gracia, patient arranged for transfer to [facility]. d/c to [facility] today. Total critical care time spent in ICU 40 min.
== END 2017-11-17 18:27 | disposition short-term general hospital (02) | DRG 551 ==
LOC: JER 09:51 → INTOOBSV 16:01 → JERBED 16:01 → J6S 18:11 → OBSVTOIN 11-09 11:04 → J4W 11-09 13:50 → JICU 11-09 18:18
PROVIDERS: ADMIT Internal Medicine; ATTEND Hospitalist
PROC: 0D9670Z Drainage of Stomach with Drainage Device, Via Natural or Artificial Opening (ICD-10-PCS; principal; 2017-11-13)
DX: S32.011A Stable burst fracture of first lumbar vertebra, initial encounter for closed fracture (principal); J96.21 Acute and chronic respiratory failure with hypoxia; G93.41 Metabolic encephalopathy; J69.0 Pneumonitis due to inhalation of food and vomit; J96.22 Acute and chronic respiratory failure with hypercapnia; K50.90 Crohn's disease, unspecified, without complications; I47.1 Supraventricular tachycardia; N17.9 Acute kidney failure, unspecified; J44.1 Chronic obstructive pulmonary disease with (acute) exacerbation; K56.7 Ileus, unspecified; K56.50 Intestinal adhesions [bands], unspecified as to partial versus complete obstruction; D47.1 Chronic myeloproliferative disease; E87.0 Hyperosmolality and hypernatremia; S32.000A Wedge compression fracture of unspecified lumbar vertebra, initial encounter for closed fracture; J44.9 Chronic obstructive pulmonary disease, unspecified; F41.9 Anxiety disorder, unspecified; R93.8 Abnormal findings on diagnostic imaging of other specified body structures; K57.90 Diverticulosis of intestine, part unspecified, without perforation or abscess without bleeding; N28.1 Cyst of kidney, acquired; D69.6 Thrombocytopenia, unspecified; E86.0 Dehydration; K59.00 Constipation, unspecified; D35.00 Benign neoplasm of unspecified adrenal gland; M79.1 Myalgia; K64.9 Unspecified hemorrhoids; E87.5 Hyperkalemia; R11.0 Nausea; K58.9 Irritable bowel syndrome, unspecified; I12.9 Hypertensive chronic kidney disease with stage 1 through stage 4 chronic kidney disease, or unspecified chronic kidney disease; N18.9 Chronic kidney disease, unspecified; R68.2 Dry mouth, unspecified; R33.9 Retention of urine, unspecified; Z99.81 Dependence on supplemental oxygen; Z87.891 Personal history of nicotine dependence; Z79.52 Long term (current) use of systemic steroids
CPT/HCPCS: 36415; 36600; 70450-TC; 71045-TC-FY; 72131-TC; 74018-TC-FY; 74019-TC-FY; 74176-TC; 76775-TC; 80048; 80053; 80061; 81003; 81015; 82140; 82272; 82436; 82550; 82570; 82803; 83605; 83721; 83735; 84100; 84132; 84133; 84300; 84484; 85025; 85027; 87040; 87086; 93005; 93010; 94640; 94660; 97162-GP; 99283-25; G0378; J0131; J1644; J7030; J8999